=== PATIENT | female | born 2000 | race Caucasian/White ===

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

== ENCOUNTER → 2023-05-22 | Outpatient (CLI) | payer OTHER, MEDICAID, SELFPAY | END | disposition home or self-care (01) | PROVIDERS: PCP Family Medicine | DX: G47.33 Obstructive sleep apnea (adult) (pediatric) (principal) | CPT/HCPCS: 95811 ==

== ENCOUNTER 2023-07-07 10:11 | Emergency (ER) | payer OTHER, MEDICAID, SELFPAY ==
[2023-07-07 10:13] VITALS: BP 145/112; PULSE 105; RESP 18; TEMP 35.9; O2SAT 97; BMI 37.8
--- NOTE | 2023-07-07 10:34 | CT_ITS ---
STUDY: CT BRAIN WITHOUT CONTRAST REASON FOR EXAM: Female, 22 years old. [place] x 2 days, hx pseudotumor RADIATION DOSAGE (If Supplied By Facility): CTDIvol = ( 44.99 ) mGy, DLP = ( 762.36 ) mGycm TECHNIQUE: Transaxial CT imaging of the brain was performed without administration of intravenous contrast material. Individualized dose optimization techniques were used for this CT. COMPARISON: Head CT dated January 01, 2021 FINDINGS: Normal soft tissue structures. Normal calvarium. No hydrocephalus or extra-axial fluid collection is present. Normal size ventricles and extra-axial spaces for the patient''s age. Normal white matter tracts of the cerebral hemispheres. Normal basal ganglia and thalami. Normal brainstem. Normal cerebellum. There is no intracranial hemorrhage. There are no findings of an acute ischemic infarction. Normal visualized paranasal sinuses. CT/Brain/Head without Contrast IMPRESSION: Normal unenhanced CT scan of the brain. Electronically Signed: Scooter Conner MD at 11:27 EDT ,
--- NOTE | 2023-07-07 10:41 | EDS_ITS ---
HPI History of Present Illness Chief Complaint: Headache Informant: patient Onset/Context/Timing Onset: Yesterday Context: Gradual Timing: Continuous Quality -Headache: Positive for Sharp and Dull (Aching) Location: Left side of head Worsened by: Nothing Relieved by: Nothing Associated Symptoms/Injury Associated Symptoms: Positive for Nausea; Negative for Fever, Vomiting, Sore Throat, Sinus Pressure, Numbness, Tingling, Preceding Aura, Visual Changes, Blurred Vision, Photophobia or Visual Loss Injury - PISANO: Negative for Direct Trauma Narrative Narrative: Patient presents with a headache that began yesterday afternoon. Patient states it has been constant. Patient states it is mainly on the left side of her head. Patient describes it as a sharp pain and aching. Patient states nothing makes it better nothing makes it worse. Patient admits to some nausea but denies any vomiting. Patient denies any sore throat or sinus pressure. Patient denies any fevers or chills. Patient denies any paresthesias or weakness. Patient denies any photophobia or scotoma. Patient denies any preceding aura. Patient states she has a history of pseudotumor cerebri. Patient does not have a CROWNING INSPECTOR shunt. [facility] Medical History Pseudotumor cerebri Allergy/AdvReac Type Severity Reaction Status Date / Time No Known Allergies Allergy Verified 07/07/23 10:12 Surgical History Hx of section Social History Smoking Status: Never smoker substance use type: does not use ROS ROS ED Constitutional Constitutional ED: Denies chills or fever(s) Eyes Eyes: Denies blurry vision or change in vision ENT ENT ED: Denies rhinorrhea or sore throat Cardiovascular Cardiovascular: Denies chest pain or palpitations Respiratory/Chest Respiratory/Chest: Denies cough or dyspnea Gastrointestinal Gastrointestinal: Reports nausea; Denies vomiting Genitourinary Genitourinary ED: Denies dysuria or hematuria Musculoskeletal Musculoskeletal: Reports neck pain; Denies back pain Integumentary Denies abscess or rash Neurologic Neurologic: Reports headache(s); Denies weakness Allergic/Immunologic Allergic/Immunologic ED: Denies mouth swelling or urticaria EXAM Physical Exam Const Vital Signs: 07/07/23 10:13 Temperature 96.6 F L Temperature Source Temporal Pulse Rate 105 H Respiratory Rate 18 Blood Pressure 145/112 H Blood Pressure Mean 123 Pulse Ox 97 Oxygen Delivery Method Room Air Positive well nourished and well developed General Appearance ED: well developed and NAD HEENT Reports normocephalic and moist mucous membranes atraumatic and temporal artery tenderness left (Mild) Neck supple and no meningeal signs Resp normal respiratory effort and clear to auscultation bilaterally Cardio regular rate and regular rhythm GI non-tender and non-distended Palpation: soft Extremity normal to inspection and full ROM Neuro oriented x3, CN's II-XII intact bilaterally and no sensory deficits noted Oswald Coma Scale: document GCS findings Spontaneous Obeys Commands Oriented 15 Sensorium / Orientation: awake and alert Speech: speech normal Motor Exam: strength 5/5 throughout Psych mental status grossly normal MDM MDM MDM Narrative Medical decision making narrative: Differential diagnosis includes intracranial bleeding, pseudotumor cerebri, migraine headache, tension headache, and temporal arteritis. CT scan of the brain will be obtained to assess for intracranial bleeding. The CBC will be obtained to assess for leukocytosis and anemia. Basic metabolic profile will be obtained to assess for electrolyte abnormality and renal function. Urinalysis will be obtained to assess for urinary tract infection. Serum hCG will be obtained to assess for . Sed rate will be obtained to assess for temporal arteritis. Lab Data Attestation: I reviewed the patient's lab results. Lab results narrative: CBC was reviewed and was within normal limits. Basic metabolic profile was reviewed and was within normal limits. Sed rate was reviewed and was slightly elevated at 32. Serum hCG was reviewed and was negative. Urinalysis was reviewed. There is no evidence of urinary tract infection or hematuria. Labs: Laboratory Results - last 24 hr 07/07/23 07/07/23 10:30 10:50 WBC 10.0 RBC 4.36 Hgb 12.2 Hct 38.8 MCV 89.0 MCH 28.0 MCHC 31.4 L RDW Std Deviation 45.7 H RDW Coeff of Carlos A 14.0 Plt Count 456 H MPV 8.0 Immature Gran % (Auto) 0.700 Neut % (Auto) 60.4 Lymph % (Auto) 25.2 [place] % (Auto) 9.2 Eos % (Auto) 3.9 Baso % (Auto) 0.6 Absolute Neuts (auto) 6.1 Absolute Lymphs (auto) 2.53 Nucleated RBC % 0 ESR 32 H Sodium 137 Potassium 3.9 Chloride 105 Carbon Dioxide 27.0 Anion Gap 5 BUN 8 Creatinine 0.70 Estim Creat Clear Calc 158.30 Est GFR (MDRD) Af Amer 137 Est GFR (MDRD) Non-Af 113 BUN/Creatinine Ratio 11.5 Glucose 96 Calcium 9.5 Serum , Qual NEGATIVE Urine Color Yellow Urine Clarity Sl. Cloudy Urine pH 7.0 Ur Specific [place] 1.015 Urine Protein Negative Urine Glucose (UA) Normal Urine Ketones Negative Urine Occult Blood Negative Urine Nitrite Negative Urine Bilirubin Negative Urine Urobilinogen Normal Ur Leukocyte Esterase Negative Urine RBC 0 SEEN Urine WBC 0 SEEN Ur Squamous Epith Cells 5-10 SEEN Urine Bacteria 0 SEEN Urine Mucus 0 SEEN Radiography Diagnostic Testing: Clinical Impression(s) from Imaging Studies Brain CT 07/07/23 10:34 IMPRESSION: Normal unenhanced CT scan of the brain. Electronically Signed: Scooter Conner MD at 11:27 EDT Reading Location ID and State: [facility] / [place] , Service support , CT scan of the brain was obtained. There is no acute intracranial abnormality. This was interpreted by the radiologist and was also independently reviewed by myself. Treatment and Re-Evaluation Narrative: Patient was given IV fluids, Reglan, and Benadryl. Patient was feeling better on reevaluation. Patient felt like she wanted to go home. Patient was instructed to rest in a dark quiet room. Patient was instructed to follow-up with her primary care physician in 5 to 7 days. Patient understood and was agreeable with the plan. All questions were answered. Discharge Plan Triage Chief Complaint: Headache ED Provider: Paolo Kaiser Dx/Rx/DC Orders Clinical Impression: Headache Instructions: ED Headache Unspecified Primary Care Provider: Bryant Macario Referrals: Bryant Macario MD [Primary Care Provider] - 5-7 Days Print Language: Argentine Disposition Disposition: Home, Self Care
[2023-07-07] MEDS: 0.9% Normal Saline (1000mL) 1,000 ML 999 ML IV (10:54)
[2023-07-07] MEDS: Metoclopramide 10 MG/2 ML Vial IV (10:56)
[2023-07-07] MEDS: DiphenhydrAMINE 50 MG/ML Syringe 25 MG IV (10:56)
[2023-07-07 10:58] LABS: Bacteria 0 SEEN /hpf (None Seen); Mucous, Urine 0 SEEN /hpf (<or=2+); Red Blood Cells-Urine 0 SEEN /hpf (0-5); White Blood Cells 0 SEEN /hpf (0-5)
[2023-07-07 11:00] LABS: Color, Urine Yellow (Yellow); Glucose, Dipstick Normal (Normal); Ketone-Dipstick Negative (Negative); Leukocyte Esterase-Dipstick Negative /ul (Negative); Nitrite-Dipstick Negative (Negative); Occult Blood-Urine Negative /ul (Negative); Protein-Dipstick Negative (Negative); Specific Gravity, Urine 1.015 (1.002-1.030); Urine Bilirubin Dipstick Negative (Negative); Urine Clarity Sl. Cloudy (Clear); Urine Urobilinogen Normal (Normal)
[2023-07-07 11:12] LABS: Absolute Lymphocyte Count 2.53 X10^3/uL (0.83-4.51); Absolute Neutrophil Count 6.1 X10^3/uL (2.0-7.7); Basophil# 0.06 X10^3/uL; Basophil% 0.6 % (0-1); Eosinophil# 0.39 X10^3/uL; Eosinophils% 3.9 % (0-5); Erythrocyte Sedimentation Rate 32 mm/hr (0-30); Hematocrit 38.8 % (37-47); Hemoglobin 12.2 g/dL (12.0-15.0); Lymphocyte # 2.53 X10^3/ul (0.83-4.51); Lymphocyte % 25.2 % (19-41); Mean Corp Hgb Conc 31.4 g/dL (32-36); Monocyte# 0.92 X10^3/uL; Monocyte% 9.2 % (0-10); NRBC Flagged by Analyzer 0 % (0-5); Neutrophil # 6.05 X10^3/uL (2.7-7.7); Neutrophil % 60.4 % (47-70); Platelet Count 456 K/mm3 (150-450); RBC Distribution Width SD 45.7 fl (35.1-43.9); Red Blood Count 4.36 M/mm3 (4.2-5.4)
[2023-07-07 11:15] LABS: Squamous Epithelial Cells - UA 5-10 SEEN /hpf (5-10)
[2023-07-07 11:19] LABS: Internal QC Validated? YES +Cl - CLEAR BKGD; Pregnancy, Serum, hCG Quali. NEGATIVE Negative; Record Kit Lot#, Serum Preg. HCG0000718089
[2023-07-07 11:32] LABS: Anion Gap 5 (5-15); BUN 8 mg/dL (7-18); BUN/Creat Ratio 11.5 RATIO (10-20); Calcium,Total 9.5 mg/dL (8.5-10.1); Chloride 105 mmol/L (98-107); EST Glomerular Filtration Rate 113 mL/min (>60); Est Glom Filt Rate - Afr Amer 137 mL/min (>60); Glucose 96 mg/dL (74-106); Potassium 3.9 mmol/L (3.5-5.1); Sodium Level 137 mmol/L (136-145)
[2023-07-07 12:27] VITALS: BP 107/76; PULSE 76; RESP 19; TEMP 36.4; O2SAT 95
== END 2023-07-07 12:32 | disposition home or self-care (01) ==
PROVIDERS: Emergency Provider Emergency Medicine; PCP Family Medicine; Visit Provider Emergency Medicine
DX: R51.9 Headache, unspecified (principal); R11.0 Nausea
CPT/HCPCS: 70450; 80048; 81001; 84703; 85025; 85652; 99283; J7030; A4216

== ENCOUNTER 2024-08-11 12:07 | Emergency (ER) | payer BC, SELFPAY ==
[2024-08-11 12:07] VITALS: BP 164/71; PULSE 91; RESP 16; TEMP 36.7; O2SAT 99; BMI 42.6
[2024-08-11 14:07] VITALS: PULSE 63; RESP 18; O2SAT 97
[2024-08-11] MEDS: 0.9% Normal Saline (1000mL) 1,000 ML 1000 ML IV (14:16)
[2024-08-11] MEDS: Morphine 4 MG/ML Syringe IV (14:16)
[2024-08-11] MEDS: DiphenhydrAMINE 50 MG/ML Syringe 25 MG IV (14:16)
[2024-08-11] MEDS: Metoclopramide 10 MG/2 ML Vial IV (14:16)
--- NOTE | 2024-08-11 14:17 | EDS_ITS ---
HPI History of Present Illness Chief Complaint: Headache Narrative Narrative: Chief complaint and HPI: Headache. 24-year-old female with past medical history of migraines, chronic headache, pseudotumor cerebri presents for evaluation of headache. Patient states she follows with neurology for chronic headaches. States she recently just had an MRI of the brain as well as MRV that was unremarkable. She states she had this performed as she has had a constant headache for the past 2 years. Patient states yesterday evening she developed a headache that has progressively worsened. She took her Topamax and Excedrin with some relief. Patient states she talked to her PCP who sent her in for further evaluation as she states this feels different than her typical migraine. She states this is because the headache is more in the posterior of the brain versus frontal. She endorses photophobia and nausea. Denies any trauma, fever, chills, URI symptoms, neck pain, syncope, numbness, tingling, weakness, vomiting. Review of systems: See HPI Medications: As listed on the chart Allergies: As listed on the chart PFSH: Per chart Vital signs: As listed on the chart. Reviewed. Physical exam: Gen: A&O x3, NAD Head: Normocephalic, atraumatic Eyes: No sclera icterus, conjunctiva clear, PERRL, EOMI ENT: Moist mucous membranes, No facial asymmetry Neck: Trachea midline, No JVD CV: RRR, no murmurs, no peripheral edema Resp: Lungs CTA BL, no w/r/c GI: Abd soft, non-distended, non-tender, no r/r/g Musc: Full ROM, no deformity, strength +5/5 in all extremities, no ataxia Skin: Warm, dry, intact Neuro: Alert, oriented, grossly intact, sensation intact, no focal deficits Psych: Cooperative, appropriate mood and affect [facility] Medical History Pseudotumor cerebri Allergy/AdvReac Type Severity Reaction Status Date / Time No Known Allergies Allergy Verified 07/07/23 10:12 Surgical History Hx of section Social History Smoking Status: Never smoker substance use type: does not use EXAM Physical Exam Const Vital Signs: 08/11/24 12:07 08/11/24 14:07 Temperature 98.1 F Temperature Source Oral Pulse Rate 91 63 Respiratory Rate 16 18 Blood Pressure 164/71 H Blood Pressure Mean 102 Pulse Ox 99 97 Oxygen Delivery Method Room Air Room Air MDM MDM MDM Narrative Medical decision making narrative: 24-year-old female with past medical history of migraines, chronic headache, pseudotumor cerebri presents for evaluation of headache. Patient states she took her Topamax and Excedrin with some relief. States that it feels different than her typical migraines given that it is more posterior that frontal. Denies acute onset of headache reaching maximal intensity in under one hour. This is neither the worst headache that they have ever experienced, nor was the onset timed with exertional activity or trauma. Patient has not experienced any fever, unusual neck pain or stiffness, syncope. Denies numbness, tingling, or weakness of the extremities. Differential diagnosis includes but is not limited to migraine, tension headache, suspect less likely intracranial abnormality, SAH, pseudotumor cerebri. NS bolus, morphine, Reglan, Benadryl ordered for migraine cocktail. CT of the head ordered. CT of the head shows no acute intracranial abnormality. At this point in time, I suspect patient's symptoms are secondary to a migraine. On reevaluation, patient states her symptoms have improved. Patient is stable to discharge home. Recommend following up with PCP and neurologist. She was offered antinausea medicine for home but declined. Return precautions explained. Impression: 1. Migraine 2. History of migraines Radiography Diagnostic Testing: Clinical Impression(s) from Imaging Studies Brain CT 08/11/24 14:31 IMPRESSION: NORMAL NONCONTRAST HEAD CT. Reading Location: [id number] Discharge Plan Triage Chief Complaint: Headache ED Provider: Hakeem Negrete Dx/Rx/DC Orders Clinical Impression: Migraine Instructions: ED, Migraine (Classical) Primary Care Provider: Bryant Macario Referrals: Bryant Macario MD [Primary Care Provider] - Activity Restrictions/Additional Instructions: Follow-up with your primary care physician as well as your neurologist. Return back to the ED if symptoms change or worsen. Print Language: Ugandan Disposition Disposition: Home, Self Care
--- NOTE | 2024-08-11 14:31 | CT_ITS ---
PROCEDURE: BRAIN/HEAD WITHOUT CONTRAST 08/11/2024 REASON FOR EXAM: PISANO TECHNIQUE: BRAIN/HEAD WITHOUT CONTRAST Coronal and Sagittal reconstruction series were provided. One or more dose reduction techniques were used (e.g., Automated exposure control, adjustment of the mA and/or kV according to patient size, use of iterative reconstruction technique. RADIATION DOSE SUMMARY: CTDlvol: 44.99 mGy DLP: 779.24 mGycm COMPARISON: Prior study dated July 07, 2023. FINDINGS: Brain: Normal CSF Spaces: Normal Sinuses/Mastoids: Clear at visualized levels Bones: Unremarkable CT/Brain/Head without Contrast IMPRESSION: NORMAL NONCONTRAST HEAD CT. Reading Location: [facility]
[2024-08-11 15:08] VITALS: BP 119/67; PULSE 67; RESP 18; TEMP 36.4; O2SAT 98
== END 2024-08-11 15:14 | disposition home or self-care (01) ==
PROVIDERS: Emergency Provider Surgery; PCP Family Medicine; Visit Provider Surgery
DX: G43.909 Migraine, unspecified, not intractable, without status migrainosus (principal)
CPT/HCPCS: 70450; 96361; 96374; 96375; 99282; A4216

== ENCOUNTER → 2024-12-29 | Outpatient (CLI) | payer OTHER, SELFPAY ==
--- OUTSIDE RECORDS SUMMARY | 2024-12-29 07:09 | XMS RPT_ITS | CCD ---
Author Organization [facility] Care Team Providers Care Gluten Settling Tender Name Role Phone Bryant Grimm MD Primary Care Provider Unava Bryant Jarquin MD Primary Care Provider [place] PROFESSIONAL SKATER.Hetal SMART Unavailable Laar Jimenez PA-C Unavailable [place] PROFESSIONAL SKATER.CRITICAL CARE EDUCATORHetal Unavailable Tony [place] Lara Unavailable [place] PROFESSION[employer].BING Hetal Unavailable Tony [place] Lara Unavailable Dr. Bryant Grimm MD Primary Care Provider [phone] Dr. Hakeem Negrete DO Emergency Provider Bryant Grimm Primary Care Unavailable Hakeem Negrete Attending Unavailabl e Bryant Grimm Referring Unavailable Bryant Grimm Attending Unavailable Bryant Grimm Primary Care Unavailable BRYANT GRIMM Primary Care Unavailable LARA JIMENEZ Referring Unavailable BRYANT GRIMM Primary Care Unavailable BRYANT GRIMM Attending Unavailable BRYANT GRIMM Primary Care Unavailable LANKIRSTEN, SOTO Referring Unavailable BRYANT GRIMM A Primary Care Unavailable LANZO, SOTO Referring Unavailable BRYANT GRIMM Primary Care Unavailable BRYANT GRIMM Referring Unavailable BRYANT GRIMM Primary Care Unavailable SELF Referring Unavailable LIZA CAMARILLO Attending Unavailable BRYANT GRIMM Primary Care Unavailable LARA JIMENEZ Attending Unavailable BRYANT GRIMM Primary Care Unavailable LARA JIMENEZ Referring Unavailable BRYANT GRIMM Primary Care Unavailable LANZO, SOTO Referring Unavailable JOSE G TAYLOR Attending Unavailable ALFA, BRYANT A Primary Care Unavailable HAMANFRED, JOSE G Attending Unavailable ALFA, BRYANT A Primary Care Unavailable HAURY, JOSE G Referring Unavailable ALFA, BRYANT A Primary Care Unavailable RESHMA WINKLER Referring Unavailable LANZO, SOTO Attending Unavailable ALFA, BRYANT A Primary Care Unavailable LARA JIMENEZ Attending Unavailable ALFA, BRYANT A Primary Care Unavailable MASCI, LIZA A Referring Unavailable ALFA, BRYANT A Primary Care Unavailable LANZO, SOTO Referring Unavailable ALFA, BRYANT A Primary Care Unavailable MASCI, LIZA A Referring Unavailable ALFA, BRYANT A Primary Care Unavailable LANZO, SOTO Referring Unavailable LANZO, SOTO Attending Unavailable ALFA, BRYANT A Primary Care Unavailable LARA JIMENEZ Referring Unavailable ALFA, BRYANT A Primary Care Unavailable HAURY, JOSE G Referring Unavailable ALFA, BRYANT A Primary Care Unavailable SELF Referring Unavailable LANZO, SOTO Attending Unavailable ALFA, BRYANT A Primary Care Unavailable ALFA, BRYANT A Referring Unavailable ROSA M PARSONS Attending Unavailable ALFA, BRYANT A Primary Care Unavailable ALFA, BRYANT A Attending Unavailable ALFA, BRYANT A Primary Care Unavailable LANZO, SOTO Referring Unavailable MASCI, LIZA A Attending Unavailable ALFA, BRYANT A Primary Care Unavailable SELF Referring Unavailable Medications Current Medications Medication Drug Class(es) Dates Sig (Normalized) Sig (Original) 12 hr acetaZOLAMIDE 500 mg extended release oral capsule (20 sources) Carbonic Anhydrase Inhibitor Start: 12-02-2022 End: 03-02-2023 take 1 capsule by mouth twice daily acetaZOLAMIDE SR (DIAMOX SEQUELS) 500 mg capsule Take 1 capsule by mouth two times a day. 60 capsule 2 12/02/2022 03/02/2023 Active Start: 05-07-2021 take 1 dose by mouth twice daily 500 mg, Oral, EVERY 12 HOURS SCHEDULED (2 times per day), First dose on Fri05/07/21 at 2100 Start: 05-03-2021 acetaZOLAMIDE (DIAMOX) extended release capsule 500 mg Start: 05-02-2021 End: 05-03-2021 take 500 mg by mouth twice daily 500 mg, Oral, 2 TIMES DAILY, First dose on Fri05/02/21 at 2100 Start: 01-05-2021 acetaZOLAMIDE (DIAMOX) extended release capsule 500 mg Start: 01-05-2021 End: 09-13-2021 take 1 capsule by mouth every twelve hours acetaZOLAMIDE (DIAMOX) 500 MG extended release capsule Take 1 capsule by mouth every 12 hours 60 capsule 3 05/09/2021 Active Start: 01-04-2021 End: 01-05-2021 acetaZOLAMIDE (DIAMOX) table t 500 mg Comment on above: Take 500 mg by mouth . Take 1 capsule by mo uth two times a day. amoxicillin 875 mg / clavulanate 125 mg oral tablet (2 sources) Penicillin-class Antibacterial Start: 05-27-2022 End: 06-03-2022 take 1 tablet by mouth once amoxicillin-cla vulanic acid (AUGMENTIN) 875-125 mg per tablet Take 1 tablet by mouth. 0 05/27/2022 06/03/2022 Active Start: 05-08-2021 amoxicillin-cl avulanate (AUGMENTIN) 875-125 MG per tablet 1 tablet Comment on above: Take 1 tablet by tressa th. aspirin/acetaminophen/caffei n e (EXCEDRIN MIGRAINE ORAL) (20 sources) aspirin/acetamin ophen/caffei ne (EXCEDRIN MIGRAINE ORAL) Take by mouth as needed. Drug free headache Care Active aspirin/acetamin ophen/caffeine (EXCEDRIN MIGRAINE ORAL) Drug free headache Care Active End: 03-22-2024 take 1 tablet by mouth once daily aspirin/acetaminophen/caffeine (EXCEDRIN MIGRAINE ORAL) Take 1 tablet by mouth once daily. Drug free head care 03/22/2024 Discontinued take 1 tablet by tressa th once daily aspirin/acetaminophen/caffeine (EXCEDRIN MIGRAINE ORAL) Take 1 tablet by mouth once daily. Drug free head care Active take 1 tablet by tressa th once daily aspirin/acetaminophen/caffeine (EXCEDRIN MIGRAINE ORAL) Take 1 tablet by mouth once daily. Drug free head care 0 Active atorvastatin 20 mg oral tablet (15 sources) HMG-CoA Reductase Inhibitor Start: 08-07-2024 take 1 tablet by mouth once daily atorvastatin (LIPITOR) 20 mg tablet Indications: WHITNEY (nonalcoholic steatohepatitis) Take 1 tablet by mouth once daily. 90 tablet 1 08/07/2024 Active 24 hr buPROPion hydrochloride 300 mg extended release oral tablet (20 sources) Aminoketone Start: 04-08-2025 take 1 tablet by mouth every hour buPROPion XL (WELLBUTRIN XL) 300 mg 24 hr tablet Take 1 tablet by mouth once daily. Per Psych, Tranquility 90 tablet 1 05/25/2024 Active Start: 08-14-2022 End: 05-25-2024 take 1 tablet by mouth once daily buPROPion XL (WELLBUTRIN XL) 300 mg 24 hr tablet Take 1 tablet by mouth once daily. 90 tablet 1 11/07/2023 05/25/2024 Discontinued (Adjust Sig - Block E-Cancel) Start: 07-17-2022 take 1 tablet by tressa th once daily buPROPion XL (WELLBUTRIN XL) 300 mg 24 hr tablet Take 1 tablet by mouth once daily. 30 tablet 5 07/17/2022 Active Start: 05-30-2022 End: 07-17-2022 take 1 tablet by mouth once daily buPROPion XL (WELLBUTRIN XL) 150 mg 24 hr tablet Take 1 tablet by mouth once daily. 30 tablet 5 05/30/2022 07/17/2022 Discontinued Comment on above: Take 1 tablet by tressa th once daily. TAKE 1 TABLET BY TRESSA TH EVERY DAY cetirizine hydrochloride 10 mg oral tablet (20 sources) Histamine-1 Receptor Antagonist Start: take 1 tablet by mouth once daily cetirizine (ZYRTEC) 10 mg tablet Take 1 tablet by mouth once daily. 30 tablet 08/16/2020 Active Comment on above: Take 1 tablet by tressa th once daily. CPAP/BIPAP/OTHER (20 sources) Start: End: CPAP/BIPAP/OTHER autoCPAP 8-10 cmH2O [facility] 1 Each 06/02/2023 10/17/2050 Active Start: 06-02-2023 End: 10-17-2050 CPAP/BIPAP/OTHER autoCPAP 8- 10 cmH2O [facility] 1 Each 0 06/02/2023 10/17/2050 Active Start: 02-24-2023 End: 06-02-2023 CPAP/BIPAP/OTHER autoCPAP 5- 15 cmH2O [facility] 1 Each 0 02/24/2023 06/02/2023 Discontinued Start: 02-24-2023 End: 07-11-2050 CPAP/BIPAP/OTHER autoCPAP 5- 15 cmH2O [facility] 1 Each 0 02/24/2023 07/11/2050 Active Comment on above: autoCPAP 5-15 cmH2O [facility] autoCPAP 8-10 cmH2O [facility] Cranberry preparation (14 sources) Non-Standardized Food Allergenic Extract, Non-Standardized Plant Allergenic Extract Start: 09-11-2024 End: 10-24-2024 Cranberry 500 mg cap 09/11/2024 10/24/2024 Discontinued End: 05-07-2024 CRANBERRY ORAL Take by mouth once daily. 05/07/2024 Discontinued CRANBERRY ORAL T jaclyn by mouth once daily. Active 1 ml diphenhydrAMINE hydrochloride 50 mg/ml cartridge (3 sources) Histamine-1 Receptor Antagonist Start: 05-02-2021 25 mg, IntraVENous, EVERY 6 HOURS PRN, Itching, Hives, Starting on Fri05/02/21 at 1540, Start: 01-04-2021 End: 01-04-2021 diphenhydrAMINE (BENADRYL) i njection 25 mg Start: 01-03-2021 diphenhydrAMIN E (BENADRYL) tablet 25 mg docusate sodium 100 mg oral capsule (6 sources) Start: 05-07-2021 take 100 mg by mouth twice daily as needed for constipation 100 mg, Oral, 2 TIMES DAILY PRN, Constipation, Starting on Fri05/07/21 at 1239 Do not crush or break. Start: 05-02-2021 End: 05-05-2021 take 1 capsule by mouth twice daily as needed for constipation docusate sodium (COLACE) 100 MG capsule Take 1 capsule by mouth 2 times daily as needed for Constipation 60 capsule 1 05/04/2021 Active Start: 01-01-2021 take 100 mg by mouth twice daily as needed for constipation 100 mg, Oral, 2 TIMES DAILY PRN, Constipation, Starting on Fri01/01/21 at 2359 Do not crush or break. 0.4 ml enoxaparin sodium 100 mg/ml prefilled syringe (2 sources) Low Molecular Weight Heparin Start: 05-07-2021 inject 40 mg by subcutaneous injection once daily 40 mg, SubCUTAneous, DAILY, First dose on Fri05/07/21 at 1945, Start: 05-03-2021 inject 60 mg by subc utaneous injection once daily 60 mg, SubCUTAneous, DAILY, First dose on Isabelle 05/03/21 at 0115, ferrous sulfate 325 mg oral tablet (4 sources) Start: 05-02-2021 take 325 mg by mouth twice daily at mealtime 325 mg, Oral, 2 TIMES DAILY WITH MEALS, First dose on 05/07/21 at 1700 Start if Hgb less than 10. flaxseed oil (OMEGA 3 ORAL) (20 sources) take 2 capsules by mouth once daily flaxseed oil (OMEGA 3 ORAL) Take 2 capsules by mouth once daily. Active flaxseed oil (OM EGA 3 ORAL) Take by mouth as directed. Active flaxseed oil (OM EGA 3 ORAL) Take by mouth as directed. 0 Active FLUoxetine 40 mg oral capsule (20 sources) Serotonin Reuptake Inhibitor Start: 08-11-2024 take 1 capsule by mouth once daily Fluoxetine 10 mg capsule Active 10 mg PO DAILY August 11, 2024 12:00am Start: 08-11-2024 take 1 capsule by [facility] once daily Fluoxetine 20 mg capsule Active 20 mg PO DAILY August 11, 2024 12:00am Start: 08-11-2024 take 1 capsule by [facility] once daily Fluoxetine 40 mg capsule Active 40 mg PO DAILY August 11, 2024 12:00am Start: 06-07-2024 take 2 capsules by [facility] once daily PROZAC 20 mg capsule Take 40 mg by mouth once daily. 06/07/2024 Active Start: 06-07-2024 take 1 capsule by [facility] once daily PROZAC 20 mg capsule Take 20 mg by mouth once daily. 06/07/2024 Active 24 hr guanFACINE 1 mg extended release oral tablet (15 sources) Central alpha-2 Adrenergic Agonist Start: 08-11-2024 take 1 tablet by mouth once daily Guanfacine 1 mg tablet extended release 24 hr Active 1 mg PO DAILY August 11, 2024 12:00am take [address] [facility] once daily at bedtime guanfacine HCl (INTUNIV ER ORAL) Take 1 tablet by mouth daily at bedtime. Active HYDROmorphone (DILAUDID) injection 0.25 mg (1 source) Start: 03-16-2022 HYDROmorphone (DILAUDID) injection 0.25 mg hydrOXYzine hydrochloride 25 mg oral tablet (20 sources) Antihistamine Start: 05-26-2024 take 1 tablet by mouth every eight hours as needed hydrOXYzine HCl (ATARAX) 25 mg tablet Take 25 mg by mouth three times a day as needed. 05/26/2024 Active ibuprofen 600 mg oral tablet (20 sources) Nonsteroidal Anti-inflammatory Drug Start: 05-03-2021 ibuprofen (ADVIL;MOTRIN) tablet 600 mg Start: 05-17-2013 Ibuprofen 200 mg cap Take by mouth every 4 hours as needed. FOR PAIN. 0 05/17/2013 Active Comment on above: Take by mouth every 4 hours as needed. FOR PAIN. iv contrast (will be provided with radiology test) (2 sources) Start: 05-05-2024 End: 05-06-2024 iv contrast (will be provided with radiology test) MRV Brain Inject, intravenously, once for 1 dose. No IV access, insert saline lock prior to the beginning of sedation, infusion, injection of imaging exam. Discontinue saline lock post exam. If Pt. has a central line or IVAD, may access for administration according to line specific nursing protocol. Once exam is complete flush line and de-access according to line specific nursing protocol in the MR contrast administration guidelines link. 1 Each 05/05/2024 05/06/2024 Active Start: 05-05-2024 End: 05-06-2024 inject 1 dose intravenously once iv contrast (will be provided with radiology test) MRI Brain Inject, intravenously, once for 1 dose.No IV access, insert saline lock prior to beginning of sedation, infusion, injection of imaging exam.Discontinue saline lock post exam. If Pt. has a central line or IVAD, may access for administration according to line specific nursing protocol.Once exam is complete flush line and de-access according to line specific nursing protocol in the MR contrast administration guidelines link 1 Each 05/05/2024 05/06/2024 Active peg Cadena jensen,rhleonel mn (AZO VAGINAL HEALTH PROBIOTIC ORAL) (20 sources) End: 10-24-2024 take 1 capsule by mouth once daily peg Cadena jensen,rhamn (AZO VAGINAL HEALTH PROBIOTIC ORAL) Take 1 capsule by mouth once daily. 10/24/2024 Discontinued take 1 capsule by mo [facility] once daily L.crispat,gasseri,blanco,rhamn (AZO VAGI NAL HEALTH PROBIOTIC ORAL) Take 1 capsule by mouth once daily. Active L.crispat,boby i,blanco,rhamn (AZO VAGINAL HEALTH PROBIOTIC ORAL) Active Lacto no.76/Bifido/FOS/larch (WOMEN'S PROBIOTIC ORAL) (20 sources) take 1 capsule by mouth once daily Lacto no.76/Bifido/FOS/larch (WOMEN'S PROBIOTIC ORAL) Take 1 capsule by mouth once daily. Active Lacto no.76/Bifi do/FOS/larch (WOMEN'S PROBIOTIC ORAL) Active lanolin 1000 mg/ml topical cream (2 sources) Start: 05-07-2021 Topical, EVERY 1 HOUR PRN, Dry Skin, nipple discomfort, Starting on Fri05/07/21 at 1239, Start: 05-02-2021 Topical, EVERY 1 HOUR PRN, Dry Skin, nipple discomfort, Starting on Fri05/02/21 at 1540, lidocaine hydrochloride 0.02 mg/mg topical gel (2 sources) Antiarrhythmic, Amide Local Anesthetic Start: 01-05-2021 lidocaine (XYLOCAINE) 2 % jelly Start: 01-05-2021 lidocaine 4 % external patch 1 patch methylPREDNISolone (2 sources) Corticosteroid Start: 05-05-2024 End: 05-11-2024 methylPREDNISolone (MEDROL, YUE,) 4 mg Dose-Pack Follow instructions on package 21 tablet 05/05/2024 05/11/2024 Active mv-min/iron/folic/calci um/vitK (WOMEN'S MULTIVITAMIN ORAL) (20 sources) take 1 tablet by mouth once daily mv-min/iron/folic/calc ium/vitK (WOMEN'S MULTIVITAMIN ORAL) Take 1 tablet by mouth once daily. Active mv-min/iron/foli c/calcium/vitK (WOMEN'S MULTIVITAMIN ORAL) Active 2 ml ondansetron 2 mg/ml injection (4 sources) Serotonin-3 Receptor Antagonist Start: 05-07-2021 End: 05-07-2021 4 mg, IntraVENous, EVERY 6 HOURS PRN, Nausea, Starting on Fri05/07/21 at 1239, Start: 05-02-2021 4 mg, IntraVEN ous, EVERY 6 HOURS PRN, Nausea, Starting on Fri05/02/21 at 1540, Start: 05-02-2021 End: 05-02-2021 ondansetron (ZOFRAN-ODT) dis integrating tablet 4 mg ondansetron (ZOFRAN-ODT) disintegrating tablet 4 mg (1 source) Start: 01-01-2021 ondansetron (ZOFRAN-ODT) disintegrating tablet 4 mg phentermine hydrochloride 37.5 mg oral tablet (3 sources) Sympathomimetic Amine Anorectic Start: 08-25-2024 Phentermine HCl (ADIPEX-P) 37.5 mg tablet 08/25/2024 Active polyethylene glycol 3350 [id number] mg powder for oral solution (1 source) Osmotic Laxative Start: 01-04-2021 polyethylene glycol (GLYCOLAX) packet 17 g Vit-Fe Fumarate-FA ( VITAMIN) 27-1 MG TABS tablet (2 sources) Start: 05-04-2021 take 1 tablet by mouth once daily Vit-Fe Fumarate-FA ( VITAMIN) 27-1 MG TABS tablet Take 1 tablet by mouth daily 30 tablet 3 05/04/2021 Active vitamin 27-1 MG tablet 1 tablet (3 sources) Start: 05-07-2021 take 1 tablet by mouth once daily 1 tablet, Oral, DAILY, First dose on Fri05/07/21 at 1800 Begin when normal bowel activity resumes. Start: 05-02-2021 take 1 tablet by tressa th once daily 1 tablet, Oral, DAILY, First dose on Fri05/02/21 at 1600 Begin when normal bowel activity resumes. Start: 01-02-2021 take 1 tablet by tressa th once daily 1 tablet, Oral, DAILY, First dose on Fri01/02/21 at 0900 propranolol hydrochloride 10 mg oral tablet (20 sources) beta-Adrenergic Liv Start: 11-21-2023 propranolol (INDERAL) 10 mg tablet Take 10 mg by mouth. As needed 11/21/2023 Active simethicone 80 mg chewable tablet (2 sources) Start: 05-07-2021 take 80 mg by mouth every six hours as needed 80 mg, Oral, EVERY 6 HOURS PRN, Cramping, Flatulence, Starting on Fri05/07/21 at 1239, Start: 05-02-2021 take 80 mg by mouth every six hours as needed 80 mg, Oral, EVERY 6 HOURS PRN, Cramping, Flatulence, Starting on Fri05/02/21 at 1540, 5 ml sodium chloride 9 mg/ml injection (13 sources) Start: 05-07-2021 10 mL, IntraVE Nous, EVERY 12 HOURS SCHEDULED (2 times per day), First dose on Fri05/07/21 at 2100, Start: 05-07-2021 take 25 mL intraveno usly every hour as needed 25 mL, IntraVENous, at 100 mL/hr, PRN, If patient receiving piggyback infusions without ordered maintenance IV fluids or with frequent/long duration piggyback infusions, Starting on Fri05/07/21 at 1239 Administer at the same rate as the piggyback being infused. Start: 05-07-2021 take 10 mL intravenously once 10 mL, IntraVENous, PRN, Line Care, Starting on Fri05/07/21 at 1239 After every IV line use Start: 05-07-2021 0.9 % sodium c hloride infusion Start: 05-07-2021 sodium chlorid e flush 0.9 % injection 5-40 mL Start: 05-07-2021 End: 05-07-2021 0.9 % sodium chloride bolus Start: 05-02-2021 10 mL, IntraVE Nous, EVERY 12 HOURS SCHEDULED (2 times per day), First dose on Fri05/02/21 at 2100, Start: 05-02-2021 take 10 mL intravenously once 10 mL, IntraVENous, PRN, Line Care, Starting on Fri05/02/21 at 1540 After every IV line use Start: 05-02-2021 take 25 mL intraveno usly every hour as needed 25 mL, IntraVENous, at 100 mL/hr, PRN, If patient receiving piggyback infusions without ordered maintenance IV fluids or with frequent/long duration piggyback infusions, Starting on Fri05/02/21 at 1540 Administer at the same rate as the piggyback being infused. Start: 01-02-2021 10 mL, IntraVE Nous, EVERY 12 HOURS SCHEDULED (2 times per day), First dose on Fri01/02/21 at 0900 Start: 01-01-2021 take 25 mL intraveno usly every hour as needed 25 mL, IntraVENous, at 100 mL/hr, PRN, If patient receiving piggyback infusions without ordered maintenance IV fluids or with frequent/long duration piggyback infusions, Starting on Fri01/01/21 at 2359 Administer at the same rate as the piggyback being infused. Start: 01-01-2021 take 10 mL intraveno usly once as needed 10 mL, IntraVENous, PRN, Line Care, After every IV line use, Starting on Fri01/01/21 at 2359 topiramate 100 mg oral tablet (20 sources) Start: 06-21-2024 End: 09-24-2024 take 1 tablet by mouth once daily at bedtime topiramate (TOPAMAX) 100 mg tablet Take 1 tablet by mouth daily at bedtime. 30 tablet 2 09/24/2024 Active Start: 05-25-2024 End: 06-21-2024 take 1 tablet by mouth once daily at bedtime topiramate (TOPAMAX) 50 mg tablet Take 1 tablet by mouth daily at bedtime. 05/25/2024 06/21/2024 Discontinued (Course of therapy completed) Start: 05-05-2024 End: 05-25-2024 take 1 tablet by mouth once daily at bedtime topiramate (TOPAMAX) 25 mg tablet Take 1 tablet by mouth daily at bedtime. 84 tablet 05/05/2024 05/25/2024 Discontinued (Adjust Sig - Block E-Cancel) Start: 02-18-2023 End: 06-02-2023 topiramate (TOPAMAX) 25 mg t ablet 25 mg (1 tab) at bed x 2 wks, then 50 mg at bed (2 tabs) x 2 wks, then 75 mg at bed (3 tabs) x 2 wks 84 tablet 0 02/18/2023 06/02/2023 Discontinued Start: 02-18-2023 End: 06-02-2023 take 1 tablet by mouth once daily at bedtime topiramate (TOPAMAX) 100 mg tablet Take 1 tablet by mouth daily at bedtime. 30 tablet 2 02/18/2023 06/02/2023 Discontinued Start: 10-17-2022 End: 12-02-2022 take 1 tablet by mouth once daily at bedtime, then take 1 tablet by mouth twice daily topiramate (TOPAMAX) 25 mg tablet Take 1 tablet by mouth daily at bedtime for 7 days, THEN 1 tablet twice daily. 60 tablet 1 10/17/2022 12/02/2022 Discontinued Comment on above: Take 1 tablet by tressa th daily at bedtime for 7 days, THEN 1 tablet twice daily. 25 mg (1 tab) at bed x 2 wks, then 50 mg at bed (2 tabs) x 2 wks, then 75 mg at bed (3 tabs) x 2 wks Take 1 tablet by tressa th daily at bedtime. Completed/Discontinued Medications Medication Drug Class(es) Dates Sig (Normalized) Sig (Original) acetaminophen 500 mg oral tablet (20 sources) Start: 05-07-2021 End: 05-07-2021 acetaminophen (TYLENOL) tablet 1,000 mg Start: 05-02-2021 take 650 mg by mouth every six hours as needed for pain, then take 4000 mg by mouth every twenty-four hours as needed for pain 650 mg, Oral, EVERY 6 HOURS PRN, Pain Mild (1-3), Starting on Fri05/02/21 at 1540 Maximum dose of acetaminophen is 4000 mg from all sources in 24 hours. Start: 01-01-2021 acetaminophen (TYLENOL) tablet 650 mg acetaminophen 32 5 mg cap Take by mouth as needed. Active Comment on above: Take by mouth. BENEFIBER, WHEAT DEXTRIN, ORAL (15 sources) End: 02-10-2024 BENEFIBER, WHEAT DEXTRIN, ORAL Take by mouth. 02/10/2024 Discontinued (Other) BENEFIBER, WHEAT DEXTRIN, ORAL Take by mouth. Active BENEFIBER, WHEAT DEXTRIN, ORAL Take by mouth. 0 Active calcium chloride 0.0014 meq/ ml / potassium chloride 0.004 meq/ml / sodium chloride 0.103 meq/ml / sodium lactate 0.028 meq/ml injectable solution (4 sources) Start: 05-07-2021 End: 05-08-2021 lactated ringers bolus Start: 05-02-2021 End: 05-02-2021 lactated ringers bolus Start: 01-02-2021 End: 01-02-2021 IntraVENous, at 125 mL/hr, C ONTINUOUS, Starting on Fri01/02/21 at 0045 ceFAZolin 2000 mg injection (1 source) Cephalosporin Antibacterial Start: 05-02-2021 End: 05-02-2021 2,000 mg, IntraVENous, ONCE, 1 dose, On Fri05/02/21 at 1230, Labor and Delivery (Signed and Held) cholecalciferol 0.05 mg oral capsule (20 sources) Vitamin D Start: 06-25-2024 End: 2024 take 2 capsules by mouth every week Cholecalciferol, Vitamin D3, (VITAMIN D-3) 50 mcg (2,000 unit) cap Take 2 capsules by mouth one time a week. On a different day then the 50,000 international unit(s) capsule 06/25/2024 2024 Discontinued Start: 05-25-2024 take 1 capsule by [facility] every week cholecalciferol, Vitamin D3, (VITAMIN D3) 1,250 mcg (50,000 unit) cap capsule Take 1 capsule by mouth one time a week. 12 capsule 3 05/25/2024 Active take [address] [facility] once daily cholecalciferol (VITAMIN D-3) 50 mcg (2,000 unit) tablet Take 2,000 Units by mouth once daily. Active citric acid 66.8 mg/ml / sodium citrate 100 mg/ml oral solution (1 source) Calculi Dissolution Agent, Anti-coagulant Start: 05-02-2021 End: 05-02-2021 take 30 mL by mouth once 30 mL, Oral, ONCE, On Fri05/02/21 at 1145, For 1 dose Give prior to epidural placement. Labor and Delivery 50 ml clindamycin 18 mg/ml injection (1 source) Lincosamide Antibacterial Start: 05-07-2021 End: 05-08-2021 900 mg, IntraVENous, EVERY 8 HOURS, First dose on Fri05/07/21 at 1245, Until Discontinued container,empty (PILL PAL MISC) (11 sources) End: 11-07-2023 container,empty (PILL PAL MISC) 2 tablets once daily. Nomi lovin libido 11/07/2023 Discontinued container,empty (PILL PAL MISC) 2 tablets once daily. Nomi lovin libido Active container,empty (PILL PAL MISC) 2 tablets once daily. Nomi lovin libido 0 Active Digestive Enzymes cap (1 source) End: 05-07-2024 Digestive Enzymes cap 05/07/2024 Discontinued escitalopram 10 mg oral tablet (4 sources) Serotonin Reuptake Inhibitor Start: 07-04-2021 End: 09-13-2021 take 1 tablet by mouth once daily escitalopram oxalate (LEXAPRO) 10 mg tablet TAKE 1 TABLET BY MOUTH EVERY DAY 90 tablet 0 08/24/2021 09/13/2021 Discontinued (Side Effects) Comment on above: Take 1 tablet by tressa th once daily. TAKE 1 TABLET BY TRESSA TH EVERY DAY gentamicin (GARAMYCIN) 420 mg in dextrose 5 % 250 mL IVPB (1 source) Start: 05-07-2021 End: 05-08-2021 420 mg, IntraVENous, EVERY 24 HOURS, First dose on Fri05/07/21 at 1245, Until Discontinued 1 ml ketorolac tromethamine 30 mg/ml cartridge (2 sources) Nonsteroidal Anti-inflammatory Drug, Cyclooxygenase Inhibitor Start: 05-02-2021 End: 05-03-2021 30 mg, IntraVENous, EVERY 6 HOURS, First dose on Fri05/02/21 at 1600, For 4 doses Do not administer for more than 5 days. Start: 05-02-2021 End: 05-02-2021 60 mg, IntraMUSCular, ONCE, On Fri05/02/21 at 1330, For 1 dose Do not administer for more than 5 days. Post Delivery 1 ml LORazepam 2 mg/ml injection (1 source) Benzodiazepine Start: 01-02-2021 End: 01-02-2021 LORazepam (ATIVAN) injection 0.5 mg magnesium oxide 400 mg oral tablet (1 source) End: 05-04-2021 take 1 tablet by mouth once daily magnesium oxide (MAG-OX) 400 MG tablet Take 400 mg by mouth daily 0 05/04/2021 Discontinued (Stop Taking at Discharge) 500 ml magnesium sulfate 40 mg/ml injection (1 source) Start: 01-02-2021 End: 01-02-2021 take 50 mL intravenously every hour 2,000 mg/hr (50 mL/hr), IntraVENous, CONTINUOUS, Starting on Fri01/02/21 at 0045, For 18 hours 1000 mg = 1 gram; 2000 mg = 2 grams; 20,000 mg = 20 grams medical supply, miscellaneous (MISCELLANEOUS MEDICAL SUPPLY MISC) (15 sources) End: 02-10-2024 medical supply, miscellaneous (MISCELLANEOUS MEDICAL SUPPLY MISC) 2 tablets once daily. Obvi collagenic burn 02/10/2024 Discontinued (Other) medical supply, miscellaneous (MISCELLANEOUS MEDICAL SUPPLY MISC) 2 tablets once daily. Obvi collagenic burn Active medical supply, miscellaneous (MISCELLANEOUS MEDICAL SUPPLY MISC) 2 tablets once daily. Obvi collagenic burn 0 Active metoclopramide 10 mg oral tablet (5 sources) Dopamine-2 Receptor Antagonist Start: 01-05-2021 End: 05-04-2021 take 1 tablet by mouth three times daily at mealtime metoclopramide (REGLAN) 10 MG tablet Take 1 tablet by mouth 3 times daily (with meals) 30 tablet 1 01/05/2021 05/04/2021 Discontinued (Stop Taking at Discharge) Start: 01-03-2021 metoclopramide (REGLAN) injection 10 mg Miscellaneous Medical Supply (10 sources) End: 11-07-2023 Miscellaneous Medical Supply 1 Each once daily. Nomi compact craving vitamin 11/07/2023 Discontinued Miscellaneous Me dical Supply 1 Each once daily. Nomi compact craving vitamin Active Miscellaneous Me dical Supply 1 Each once daily. Nomi compact craving vitamin 0 Active naproxen 500 mg oral tablet (7 sources) Nonsteroidal Anti-inflammatory Drug Start: 08-08-2023 End: 11-07-2023 take 1 tablet by mouth every twelve hours as needed naproxen (NAPROSYN) 500 mg tablet Take 1 tablet by mouth two times a day as needed (for pain/inflammation). Take with food. 14 tablet 1 08/08/2023 11/07/2023 Discontinued norethindrone 0.35 mg oral tablet (7 sources) Start: 06-21-2021 End: 05-02-2022 take 1 tablet by mouth once daily Norethindrone, Contraceptive, 0.35 mg tablet Take 1 tablet by mouth once daily. 0 06/21/2021 05/02/2022 Discontinued Comment on above: Take 1 tablet by tressa th once daily. oxyCODONE hydrochloride 5 mg oral tablet (3 sources) Opioid Agonist Start: 05-04-2021 End: 05-09-2021 take 1 tablet by mouth every six hours as needed for pain oxyCODONE (ROXICODONE) 5 MG immediate release tablet Indications: S/P Take 1 tablet by mouth every 6 hours as needed for Pain for up to 5 days. 20 tablet 0 05/04/2021 05/07/2021 Discontinued (LIST CLEANUP) Start: 05-02-2021 oxyCODONE (JARRED ICODONE) immediate release tablet 5 mg piperacillin 4000 mg / tazobactam 500 mg injection (1 source) Penicillin-class Antibacterial, beta Lactamase Inhibitor Start: 05-07-2021 End: 05-07-2021 piperacillin-tazobactam (ZOSYN) 4500 mg in dextrose 100 mL IVPB (premix) polyethylene glycol 3350 009255 mg / potassium chloride 2970 mg / sodium bicarbonate 6740 mg / sodium chloride 5860 mg / sodium sulfate 22186 mg powder for oral solution (1 source) Osmotic Laxative Start: 08-07-2024 End: 08-07-2024 peg 3350-Electrolytes (GOLYTELY) 236-22.74-6.74 -5.86 gram suspension Indications: Altered bowel habits , Chronic constipation Take 4,000 mL by mouth one time only for 1 dose. Refer to printed prep instructions from your provider. 4000 mL 08/07/2024 08/07/2024 predniSONE 10 mg oral tablet (6 sources) Start: 08-15-2023 End: 11-07-2023 predniSONE (DELTASONE) 10 mg tablet Take 6 tabs by mouth for 3 days then 4 tabs a day for 3 days then 2 tabs a day for 3 days and then 1 tab a day for 3 days. 39 tablet 08/15/2023 11/07/2023 Discontinued vit/iron fum/folic ac ( 1 + 1 ORAL) (5 sources) End: 09-13-2021 vit/iron fum/folic ac ( 1 + 1 ORAL) Take by mouth. 0 09/13/2021 Discontinued vit/iro n fum/folic ac ( 1 + 1 ORAL) Take by mouth. 0 Active Comment on above: Take by mouth. vancomycin (VANCOCIN) 2,250 mg in dextrose 5 % 500 mL IVPB (1 source) Start: 05-08-19 End: 05-08-19 vancomycin (VANCOCIN) 2,250 mg in dextrose 5 % 500 mL IVPB 24 hr venlafaxine 75 mg extended release oral capsule (20 sources) Serotonin and Norepinephrine Reuptake Inhibitor Start: 11-07-19 End: 06-25-19 take 1 capsule by mouth once daily venlafaxine ER (EFFEXOR XR) 75 mg 24 hr capsule Take 1 capsule by mouth once daily. Take with the 150mg capsule for total daily dose of 225mg. Per Psych, Tranquility 30 capsule 2 05/25/2024 06/24/2024 Discontinued Start: 05-02-2022 End: 06-24-2024 take 1 capsule by mouth once daily venlafaxine ER (EFFEXOR XR) 150 mg 24 hr capsule Take 1 capsule by mouth once daily. Take with the 75mg capsule for total daily dose of 225mg. Per Psych, Tranquility 90 capsule 1 05/25/2024 06/24/2024 Discontinued Start: 09-13-2021 End: 05-02-2022 take 1 capsule by mouth once daily venlafaxine ER (EFFEXOR XR) 75 mg 24 hr capsule TAKE 1 CAPSULE BY MOUTH ONCE DAILY 90 capsule 2 10/05/2021 05/02/2022 Discontinued Comment on above: Take 1 capsule by mo uth once daily. TAKE 1 CAPSULE BY MO UTH ONCE DAILY vitamin b6 100 mg oral tablet (4 sources) End: 07-04-2021 take 1 tablet by mouth once daily pyridoxine, vitamin B6, (VITAMIN B-6) 100 mg tablet Take 100 mg by mouth once daily. 0 07/04/2021 Discontinued Comment on above: Take 100 mg by mouth once daily. Problems Active Problems Problem Classification Problem Date Documented Da te Episodic/Chronic Allergic reactions (1 source) Urticaria; Translations: [Urticaria, unspecified] Episodic Anxiety disorders (20 sources) Generalized anxiety disorder; Translations: [Generalized anxiety disorder] Onset: 05-02-2022 Chronic Attention-deficit, conduct, and disruptive behavior disorders (20 sources) Oppositional defiant disorder; Translations: [Oppositional defiant disorder] Onset: 11-07-2007 12-14-2014 Chronic Attention-deficit, conduct, and disruptive behavior disorders (20 sources) Attention deficit hyperactivity disorder, combined type; Translations: [Attention-deficit hyperactivity disorder, combined type] Onset: 12-14-2014 12-14-2014 Chronic Blindness and vision defects (4 sources) Blurring of visual image; Translations: [Other visual disturbances] Episodic Complications of surgical procedures or medical care (2 sources) Postoperative fever; Translations: [Postprocedural fever] Onset: 05-07-2021 Resolved: 05-09-2021 Episodic Diseases of white blood cells (7 sources) Leukocytosis; Translations: [Elevated white blood cell count, unspecified] Onset: 05-18-2024 05-07-2024 Chronic Disorders of lipid metabolism (20 sources) Mixed hyperlipidemia; Translations: [Mixed hyperlipidemia] Onset: 05-03-2022 Chronic Headache; including migraine (10 sources) Tension-type headache; Translations: [Tension-type headache, unspecified, not intractable] Onset: 05-25-2024 02-10-2024 Chronic Headache; including migraine (2 sources) Headache; including migraine; Translations: [Headache, unspecified] Onset: 2024 Hepatitis (20 sources) Nonalcoholic steatohepatitis; Translations: [Nonalcoholic steatohepatitis (WHITNEY)] Onset: 05-25-2024 05-25-2024 Chronic Hypertension complicating ; childbirth and the puerperium (6 sources) Chronic hypertension complicating AND/OR reason for care during ; Translations: [Unspecified pre-existing hypertension complicating , unspecified trimester] Onset: 01-02-2021 Resolved: 05-04-2021 Chronic Malaise and fatigue (1 source) Fatigue; Translations: [Other fatigue] Episodic Miscellaneous mental health disorders (20 sources) Sleep state misperception; Translations: [Paradoxical insomnia] Onset: 09-30-2018 10-28-2018 Chronic Miscellaneous mental health disorders (2 sources) depression; Translations: [ depression] Episodic Mood disorders (20 sources) Major depression, single episode; Translations: [Major depressive disorder, single episode, unspecified] Onset: 05-02-2022 Chronic Neoplasms of unspecified nature or uncertain behavior (2 sources) Thrombocytosis; Translations: [Thrombocytosis] Onset: 10-18-2022 08-25-2024 Chronic Nutritional deficiencies (20 sources) Vitamin D deficiency; Translations: [Vitamin D deficiency, unspecified] Onset: 05-25-2024 05-25-2024 Chronic Nutritional deficiencies (2 sources) Iron deficiency; Translations: [Iron deficiency] Onset: 10-22-2024 10-24-2024 Episodic Other complications of ; puerperium affecting management of mother (1 source) Puerperal pyrexia of unknown origin; Translations: [Pyrexia of unknown origin following delivery] Episodic Other complications of (13 sources) Headache; Translations: [Other specified related conditions, second trimester] Resolved: 05-04-2021 Episodic Other connective tissue disease (1 source) Pain in right lower limb; Translations: [Pain in right leg] Episodic Other connective tissue disease (2 sources) Pain in right foot; Translations: [Pain in right foot] 10-22-2022 Episodic Other connective tissue disease (1 source) Pain in right arm; Translations: [Pain in right arm] 08-15-2023 Episodic Other eye disorders (6 sources) Optic disc edema; Translations: [Unspecified papilledema] Onset: 01-02-2021 Chronic Other gastrointestinal disorders (4 sources) Altered bowel function; Translations: [Change in bowel habit] 05-25-2024 Episodic Other gastrointestinal disorders (4 sources) Chronic constipation; Translations: [Other constipation] 05-25-2024 Episodic Other liver diseases (4 sources) Elevated liver enzymes level; Translations: [Abnormal levels of other serum enzymes] 05-07-2024 Episodic Other nervous system disorders (20 sources) Mass of body structure; Translations: [Benign intracranial hypertension] Onset: 07-04-2021 Chronic Other nervous system disorders (20 sources) Benign intracranial hypertension; Translations: [Benign intracranial hypertension] Onset: 07-04-2021 12-02-2022 Chronic Other nervous system disorders (1 source) Benign intracranial hypertension; Translations: [Pseudotumor cerebri] Onset: 01-23-2023 Chronic Other nervous system disorders (1 source) Paresthesia of hand ; Translations: [Anesthesia of skin] 08-08-2023 Episodic Other nervous system disorders (2 sources) Paresthesia of upper limb; Translations: [Anesthesia of skin] 08-15-2023 Episodic Other nutritional; endocrine; and metabolic disorders (17 sources) Obesity; Translations: [Other obesity due to excess calories] 09-22-2020 Chronic Other nutritional; endocrine; and metabolic disorders (20 sources) Hypercalcemia; Translations: [Hypercalcemia] Onset: 05-03-2022 Chronic Other nutritional; endocrine; and metabolic disorders (20 sources) Obesity caused by energy imbalance; Translations: [Other obesity due to excess calories] 05-02-2022 Chronic Other nutritional; endocrine; and metabolic disorders (1 source) Hypercalcemia; Translations: [Hypercalcemia] Onset: 05-03-2022 Chronic Other nutritional; endocrine; and metabolic disorders (2 sources) Weight gain; Translations: [Abnormal weight gain] Episodic Other nutritional; endocrine; and metabolic disorders (1 source) Increased thirst; Translations: [Polydipsia] 03-22-2024 Episodic Other and delivery including normal (2 sources) Second trimester ; Translations: [Encounter for supervision of normal , unspecified, second trimester] 01-09-2021 Episodic Residual codes; unclassified (20 sources) Obstructive sleep apnea syndrome; Translations: [Obstructive sleep apnea (adult) (pediatric)] Onset: 05-25-2024 06-02-2023 Chronic Residual codes; unclassified (1 source) Daytime somnolence; Translations: [Other hypersomnia] 06-02-2023 Chronic Septicemia (except in labor) (1 source) Infectious agent in bloodstream; Translations: [Sepsis, unspecified organism] Episodic Spondylosis; intervertebral disc disorders; other back problems (2 sources) Neck pain; Translations: [Cervicalgia] 08-15-2023 Episodic Unclassified (2 sources) Social and personal history finding 08-05-2024 Unclassified (1 source) Patient encounter status 08-05-2024 Past or Other Problems Problem Classification Problem Date Documented Da te Episodic/Chronic Contraceptive and procreative management (20 sources) Social and personal history finding; Translations: [Encounter for procreative management, unspecified] Onset: 08-05-2024 08-05-2024 Episodic Diabetes mellitus without complication (20 sources) High hemoglobin A1c level; Translations: [Other abnormal glucose] Onset: 05-03-2022 Episodic Genitourinary symptoms and ill-defined conditions (2 sources) Microscopic hematuria; Translations: [Other microscopic hematuria] Onset: 05-18-2024 05-07-2024 Episodic Immunizations and screening for infectious disease (9 sources) Anti-nuclear factor positive; Translations: [Other specified abnormal immunological findings in serum] Onset: 2024 01-01-2023 Episodic Neoplasms of unspecified nature or uncertain behavior (20 sources) Thrombocytosis; Translations: [Thrombocytosis] Onset: 05-03-2022 Episodic Other circulatory disease (20 sources) Elevated blood-pressure reading without diagnosis of hypertension; Translations: [Elevated blood-pressure reading, without diagnosis of hypertension] Onset: 06-24-2024 05-25-2024 Episodic Other circulatory disease (1 source) Elevated blood-pressure reading, without diagnosis of hypertension; Translations: [Elevated BP without diagnosis of hypertension] Onset: 06-24-2024 Episodic Other complications of ; puerperium affecting management of mother (3 sources) Delivery finding; Translations: [Complication of labor and delivery, unspecified] Onset: 05-02-2021 Resolved: 05-04-2021 Episodic Other gastrointestinal disorders (1 source) Change in bowel habit; Translations: [Altered bowel habits] Onset: 08-07-2024 Episodic Other gastrointestinal disorders (1 source) Other constipation; Translations: [Chronic constipation] Onset: 08-07-2024 Episodic Other liver diseases (1 source) Abnormal levels of other serum enzymes; Translations: [Elevated liver enzymes] Onset: 05-18-2024 Episodic Other nervous system disorders (1 source) Anesthesia of skin; Translations: [Anesthesia of skin] Onset: 08-19-2023 Episodic Other nervous system disorders (1 source) Paresthesia of skin; Translations: [Paresthesia of skin] Onset: 08-19-2023 Episodic Other screening for suspected conditions (not mental disorders or infectious disease) (20 sources) Patient encounter status; Translations: [Encounter for screening for diabetes mellitus] Onset: 05-02-2022 Episodic Residual codes; unclassified (4 sources) Influenza vaccination declined; Translations: [Immunization not carried out because of patient refusal] Onset: 01-02-2021 Episodic Results Test Name Value Interpretation Reference Range Facility [facility] 12-17-2024 BRITANY Telephone (HEMAWS) -- SHAHEED JACKSON ([id number]) 4 F Date Time Provider Department 12/17/24 LIZA CAMARILLO HEMAWS During your visit today, we recorded the following information about you: Mela Sutton LPN 12/17/2024 3:58 PM Signed Oanh. I apologize that I was unable to get these done. I was not able to get the time off of work. I was wondering though, my office here does lab draws, would it be possible for them to do the labs? They would just need the order (obviously) and the instructions. That way I could have them draw it and still be able to work? I wasn?t sure if that would be doable on your end? Thank you Copied from my chart message, Spoke with pt. She works at [employer], and they have nurses who work there and can draw blood. The blood is then sent to [facility]. . She is having iron studies x 2 drawn 1 hr apart after iron has been taken. Informed I would speak with Dr. Camarillo and if he says it's ok would then fax the orders. To [phone] Attn: Shaheed Sutton LPN Allergies As of Date: 12/17/2024 (No Known Allergies) Date Reviewed: 10/24/2024 Reviewed by: Liza Camarillo DO - Fully Assessed Prescriptions as of 12/22/2024 - Phentermine HCl (ADIPEX-P) 37.5 mg tablet - cholecalciferol (VITAMIN D-3) 50 mcg (2,000 unit) tablet Take 2,000 Units by mouth once daily. - topiramate (TOPAMAX) 100 mg tablet Take 1 tablet by mouth daily at bedtime. - guanfacine HCl (INTUNIV ER ORAL) Take 1 tablet by mouth daily at bedtime. - atorvastatin (LIPITOR) 20 mg tablet Take 1 tablet by mouth once daily. - PROZAC 20 mg capsule Take 40 mg by mouth once daily. - hydrOXYzine HCl (ATARAX) 25 mg tablet Take 25 mg by mouth three times a day as needed. - buPROPion XL (WELLBUTRIN XL) 300 mg 24 hr tablet Take 1 tablet by mouth once daily. Per Psych, Tranquility - cholecalciferol, Vitamin D3, (VITAMIN D3) 1,250 mcg (50,000 unit) cap capsule Take 1 capsule by mouth one time a week. - aspirin/acetaminophen/caff eine (EXCEDRIN MIGRAINE ORAL) Take by mouth as needed. Drug free headache Care - Lacto no.76/Bifido/FOS/larch (WOMEN'S PROBIOTIC ORAL) Take 1 capsule by mouth once daily. - mv-min/iron/folic/calcium/ vitK (WOMEN'S MULTIVITAMIN ORAL) Take 1 tablet by mouth once daily. - propranolol (INDERAL) 10 mg tablet Take 10 mg by mouth. As needed - flaxseed oil (OMEGA 3 ORAL) Take 2 capsules by mouth once daily. - CPAP/BIPAP/OTHER autoCPAP 8-10 cmH2O [facility] - acetaminophen 325 mg cap Take by mouth as needed. - cetirizine (ZYRTEC) 10 mg tablet Take 1 tablet by mouth once daily. - Ibuprofen 200 mg cap Take by mouth every 4 hours as needed. FOR PAIN. 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] 09/30/2018 Class 2 obesity due to excess calories without * Pseudotumor cerebri [G93.2] 07/04/2021 Major depressive disorder with single episode [*05/02/2022 PANCHO (generalized anxiety disorder) [F41.1] 05/02/2022 Elevated hemoglobin A1c [R73.09] 05/03/2022 Hyperlipidemia, mixed [E78.2] 05/03/2022 Hypercalcemia [E83.52] 05/03/2022 Elevated LFTs [R79.89] 05/03/2022 Thrombocytosis [D75.839] 05/03/2022 WHITNEY (nonalcoholic steatohepatitis) [K75.81] 05/25/2024 Vitamin D deficiency [E55.9] 05/25/2024 JUAN M (obstructive sleep apnea) [G47.33] 05/25/2024 Medication management [Z79.899] 05/25/2024 Elevated BP without diagnosis of hypertension [*06/24/2024 Desire for [Z31.9] 08/05/2024 Abnormal endometrial ultrasound [R93.5] 08/19/2024 Encounter Status:Closed by MELA SUTTON on 12/22/24 Normal [facility] CNNURSEon 10-22-2024 [facility] Nurse Visit (OBGYWM) -- SHAHEED JACKSON ([id number]) 4 F Date Time Provider Department 10/22/24 4:00 PM NURSE MANAGER USER INTERFACE [facility] OBGYWM During your visit today, we recorded the following information about you: Crow Mauro LPN 11/01/2024 9:14 AM Addendum Patient ID with two (2) identifiers verified by: Crow Mauro LPN Allergies reviewed and updated: Yes Current pain intensity is 0 on a 0-10 pain scale. Any concerns about safety in the home/falls: Not at risk for falls The patient is here for an injection of Gardasil. Dose: 0.5 ml Route: Intramuscular Given without incident. Site: right deltoid Dr. Boothe in office at time of injection. Referring Provider: SELF [[id number]] Allergies As of Date: 10/22/2024 (No Known Allergies) Date Reviewed: 10/22/2024 Reviewed by: Zenaida Brooks Ma, NINA - Fully Assessed Primary Visit Diagnosis:Need for vaccination [Z23] Prescriptions as of 11/01/2024 - Phentermine HCl (ADIPEX-P) 37.5 mg tablet - cholecalciferol (VITAMIN D-3) 50 mcg (2,000 unit) tablet Take 2,000 Units by mouth once daily. - topiramate (TOPAMAX) 100 mg tablet Take 1 tablet by mouth daily at bedtime. - guanfacine HCl (INTUNIV ER ORAL) Take 1 tablet by mouth daily at bedtime. - atorvastatin (LIPITOR) 20 mg tablet Take 1 tablet by mouth once daily. - PROZAC 20 mg capsule Take 40 mg by mouth once daily. - hydrOXYzine HCl (ATARAX) 25 mg tablet Take 25 mg by mouth three times a day as needed. - buPROPion XL (WELLBUTRIN XL) 300 mg 24 hr tablet Take 1 tablet by mouth once daily. Per Psych, Tranquility - cholecalciferol, Vitamin D3, (VITAMIN D3) 1,250 mcg (50,000 unit) cap capsule Take 1 capsule by mouth one time a week. - aspirin/acetaminophen/caff eine (EXCEDRIN MIGRAINE ORAL) Take by mouth as needed. Drug free headache Care - Lacto no.76/Bifido/FOS/larch (WOMEN'S PROBIOTIC ORAL) Take 1 capsule by mouth once daily. - mv-min/iron/folic/calcium/ vitK (WOMEN'S MULTIVITAMIN ORAL) Take 1 tablet by mouth once daily. - propranolol (INDERAL) 10 mg tablet Take 10 mg by mouth. As needed - flaxseed oil (OMEGA 3 ORAL) Take 2 capsules by mouth once daily. - CPAP/BIPAP/OTHER autoCPAP 8-10 cmH2O [facility] - acetaminophen 325 mg cap Take by mouth as needed. - cetirizine (ZYRTEC) 10 mg tablet Take 1 tablet by mouth once daily. - Ibuprofen 200 mg cap Take by mouth every 4 hours as needed. FOR PAIN. 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] 09/30/2018 Class 2 obesity due to excess calories without * Pseudotumor cerebri [G93.2] 07/04/2021 Major depressive disorder with single episode [*05/02/2022 PANCHO (generalized anxiety disorder) [F41.1] 05/02/2022 Elevated hemoglobin A1c [R73.09] 05/03/2022 Hyperlipidemia, mixed [E78.2] 05/03/2022 Hypercalcemia [E83.52] 05/03/2022 Elevated LFTs [R79.89] 05/03/2022 Thrombocytosis [D75.839] 05/03/2022 WHITNEY (nonalcoholic steatohepatitis) [K75.81] 05/25/2024 Vitamin D deficiency [E55.9] 05/25/2024 JUAN M (obstructive sleep apnea) [G47.33] 05/25/2024 Medication management [Z79.899] 05/25/2024 Elevated BP without diagnosis of hypertension [*06/24/2024 Desire for [Z31.9] 08/05/2024 Abnormal endometrial ultrasound [R93.5] 08/19/2024 Encounter Status:Closed by CROW MAURO on 10/22/24 Normal [facility] CNOVSPon 10-22-2024 CNOVSP Visit (SP) Office (H EMAWS) -- SHAHEED JACKSON ([id number]) 4 F Date Time Provider Department 10/22/24 4:10 PM LIZA CAMARILLO During your visit today, we recorded the following information about you: Temperature Pulse Blood pressure Weight 98 degrees 95/minute 112/76 111.6 kg Liza Camarillo DO 10/24/2024 9:35 AM Signed Hematologic problem(s): 1) Leukocytosis and thrombocytosis. HPI: The patient is a 24-year-old female with past medical history as outlined below. Has a 2-year history of leukocytosis/neutrophilia and thrombocytosis. Had not previously had iron studies. Regular menses. Had HMB before her daughter's about 3 years ago. 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 Less heavy over the last year. Didn't breast feed. Recently had an IV vitamin and mineral infusion--delayed menses about 2 weeks. Not a blood donor. Very consistent with CPAP. Has been using nearly a year. Topomax helping with frequent HAs. Recently saw neurology for this. Had MRI scheduled. Tries to take Excedrin sparingly. Works at [employer] in [place]. All four wisdom teeth extracted yesterday. Needed for about a year--no symptoms. Has not previously taken oral iron. Presents for ongoing hematologic management. Interim history: No complaints today. Has been getting and supplemental iron via multivitamin with iron. PAST MEDICAL HISTORY Diagnosis Date Attention deficit hyperactivity disorder (ADHD), combined type 12/14/2014 Class 2 obesity due to excess calories without serious comorbidity with body mass index (BMI) of 37.0 to 37.9 in adult Elevated hemoglobin A1c 05/03/2022 PANCHO (generalized anxiety disorder) 05/02/2022 Hyperlipidemia, mixed 05/03/2022 Insulin resistance Major depressive disorder with single episode 05/02/2022 Oppositional defiant disorder 11/07/2007 JUAN M (obstructive sleep apnea) 05/25/2024 Seeing [facility] Sleep Med. 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 Polycystic ovaries Prediabetes Pseudotumor cerebri 07/04/[address] Andrew Seasonal allergies Thrombocytosis 05/03/2022 Chronic since 2003 (500-550) Vitamin D deficiency 05/25/2024 PAST SURGICAL HISTORY Procedure Laterality Date SECTION HX 05/02/2021 NONE PAST SURGICAL HISTORY OF 07/20/2024 [place] teeth extraction topiramate (TOPAMAX) 100 mg tablet Take 1 tablet by mouth daily at bedtime. guanfacine HCl (INTUNIV ER ORAL) Take 1 tablet by mouth daily at bedtime. atorvastatin (LIPITOR) 20 mg tablet Take 1 tablet by mouth once daily. PROZAC 20 mg capsule Take 40 mg by mouth once daily. hydrOXYzine HCl (ATARAX) 25 mg tablet Take 25 mg by mouth three times a day as needed. buPROPion XL (WELLBUTRIN XL) 300 mg 24 hr tablet Take 1 tablet by mouth once daily. Per Psych, [place] cholecalciferol, Vitamin D3, (VITAMIN D3) 1,250 mcg (50,000 unit) cap capsule Take 1 capsule by mouth one time a week. aspirin/acetaminophen/caff eine (EXCEDRIN MIGRAINE ORAL) Take by mouth as needed. Drug free headache Care peg Cadena jensen, r hamn (AZO VAGINAL HEALTH PROBIOTIC ORAL) Take 1 capsule by mouth once daily. Lacto no.76/Bifido/FOS/larch (WOMEN'S PROBIOTIC ORAL) Take 1 capsule by mouth once daily. mv-min/iron/folic/calcium/ vitK (WOMEN'S MULTIVITAMIN ORAL) Take 1 tablet by mouth once daily. propranolol (INDERAL) 10 mg tablet Take 10 mg by mouth. As needed flaxseed oil (OMEGA 3 ORAL) Take 2 capsules by mouth once daily. CPAP/BIPAP/OTHER autoCPAP 8-10 cmH2O [facility] acetaminophen 325 mg cap Take by mouth as needed. cetirizine (ZYRTEC) 10 mg tablet Take 1 tablet by mouth once daily. Ibuprofen 200 mg cap Take by mouth every 4 hours as needed. FOR PAIN. ALLERGIES No Known Allergies Social History Tobacco Use Smoking status: Never Passive exposure: Never Smokeless tobacco: Never Vaping Use Vaping status: Never Used Substance Use Topics Alcohol use: No Drug use: No FAMILY HISTORY Problem Relation Age of Onset other (Other) Mother restless leg Lipids Father Diabetes Maternal Grandmother Hypertension Maternal Grandmother other (sleep apnea) Maternal Grandmother Hypertension Maternal Grandfather other (sleep apnea) Maternal Grandfather Skin Cancer Maternal Grandfather Colon Cancer Paternal Grandmother Lipids Paternal Grandfather Diabetes Paternal Grandfather REVIEW OF SYSTEMS: Constitutional: No episodes of fever and night sweats. Neuro: No vertigo, dizziness and imbalance. No symptoms of neuropathy. HEENT: No recent change in voice, vision or hearing. Resp: No cough, wheeze and hemoptysis. No shortness of breath at rest. No NGUYEN. CVS: No exertional chest pain, PND, orthopnea and LE edema. GI: No reflux, n/v, change in bowel habits (alternating diarrhea and constipation) or abdominal pain. : No dysuria or gross hematuria. (more content not included)... Normal [facility] CBC W Auto Differential pane l (Bld)on 09-29-2024 Basophils (Bld) [#/Vol] 0.03 10*3/uL Normal <0.11 [facility] Comment on above: Order Comment: Speci men Type: BLOOD SPECIMENOrdering Facility: [facility] Address: [address] [place] [address] Performed By: #### 5 7021-8 ####[facility] LABCLIA [id number] [place] [address] [place] Basophils/100 WBC (Bld) 0.3 % Normal [facility] Comment on above: Order Comment: Speci men Type: BLOOD SPECIMENOrdering Facility: [facility] Address: [address] [place] [address] Performed By: #### 5 7021-8 ####[facility] LABCLIA [id number] [place] [address] [place] Differential cell count method Nom (Bld) Auto Normal [facility] Comment on above: Order Comment: Speci men Type: BLOOD SPECIMENOrdering Facility: [facility] Address: [address] [place] [address] Performed By: #### 5 7021-8 ####[facility] LABCLIA [id number] [place] [address] [place] Eosinophils (Bld) [#/Vol] 0.23 10*3/uL Normal <0.46 [facility] Comment on above: Order Comment: Speci men Type: BLOOD SPECIMENOrdering Facility: [facility] Address: [address] [place] [address] Performed By: #### 5 7021-8 ####[facility] LABCLIA [id number] [address] [place] Eosinophils/100 WBC (Bld) 2.2 % Normal [facility] Comment on above: Order Comment: Speci men Type: BLOOD SPECIMENOrdering Facility: [facility] Address: [address] [place] [address] Performed By: #### 5 7021-8 ####[facility] LABCLIA [id number] [place] [address] [place] Erythrocyte distribution width (RBC) [Ratio] 13.6 % Normal 11.5-15.0 [facility] Comment on above: Order Comment: Speci men Type: BLOOD SPECIMENOrdering Facility: [facility] Address: [address] [place] [address] Performed By: #### 5 7021-8 ####[facility] LABCLIA [id number] [place] [address] [place] Hematocrit (Bld) [Volume fraction] 35.1 % Low 36.0-46.0 [facility] Comment on above: Order Comment: Speci men Type: BLOOD SPECIMENOrdering Facility: [facility] Address: [address] [place] [address] Performed By: #### 5 7021-8 ####[facility] LABIA [id number] [place] [address] [place] Hemoglobin (Bld) [Mass/Vol] 11.4 g/dL Low 11.5-15.5 [facility] Comment on above: Order Comment: Speci men Type: BLOOD SPECIMENOrdering Facility: [facility] Address: [address] [place] [address] Performed By: #### 5 7021-8 ####[facility] LABIA [id number] [place] [address] [place] Immature granulocytes (Bld) [#/Vol] 0.03 10*3/uL Normal <0.10 [facility] Comment on above: Order Comment: Speci men Type: BLOOD SPECIMENOrdering Facility: [facility] Address: [address] [place] [address] Performed By: #### 5 7021-8 ####[facility] LABIA [id number] [place] [address] [place] Immature granulocytes/100 WBC (Bld) 0.3 % Normal [facility] Comment on above: Order Comment: Speci men Type: BLOOD SPECIMENOrdering Facility: [facility] Address: [address] [place] [address] Performed By: #### 5 7021-8 ####[facility] LABIA [id number] [place] [address] [place] Lymphocytes (Bld) [#/Vol] 3.60 10*3/uL Normal 1.00-4.00 [facility] Comment on above: Order Comment: Speci men Type: BLOOD SPECIMENOrdering Facility: [facility] Address: [address] [place] [address] Performed By: #### 5 7021-8 ####[facility] LABIA [id number] [place] [address] [place] Lymphocytes/100 WBC (Bld) 33.7 % Normal [facility] Comment on above: Order Comment: Speci men Type: BLOOD SPECIMENOrdering Facility: [facility] Address: [address] [place] [address] Performed By: #### 5 7021-8 ####[facility] LABIA [id number] [place] [address] [place] MCH (RBC) [Entitic mass] 29.1 pg Normal 26.0-34.0 [facility] Comment on above: Order Comment: Speci men Type: BLOOD SPECIMENOrdering Facility: [facility] Address: [address] [place] [address] Performed By: #### 5 7021-8 ####[facility] LABIA [id number] [place] [address] [place] MCHC (RBC) [Mass/Vol] 32.5 g/dL Normal 30.5-36.0 [facility] Comment on above: Order Comment: Speci men Type: BLOOD SPECIMENOrdering Facility: [facility] Address: [address] [place] [address] Performed By: #### 5 7021-8 ####[facility] LABIA [id number] [place] [address] [place] MCV (RBC) [Entitic vol] 89.5 fL Normal 80.0-100.0 [facility] Comment on above: Order Comment: Speci men Type: BLOOD SPECIMENOrdering Facility: [facility] Address: [address] [place] [address] Performed By: #### 5 7021-8 ####[facility] LABCLIA [id number] [address], [facility] [place] Monocytes (Bld) [#/Vol] 0.87 10*3/uL High <0.87 [facility] Comment on above: Order Comment: Speci men Type: BLOOD SPECIMENOrdering Facility: [facility] Address: [address] [place] [address] Performed By: #### 5 7021-8 ####[facility] LABCLIA [id number] [address], [facility] [place] Monocytes/100 WBC (Bld) 8.2 % Normal [facility] Comment on above: Order Comment: Speci men Type: BLOOD SPECIMENOrdering Facility: [facility] Address: [address] [place] [address] Performed By: #### 5 7021-8 ####[facility] LABCLIA [id number] [address], [facility] [place] Neutrophils (Bld) [#/Vol] 5.91 10*3/uL Normal 1.45-7.50 [facility] Comment on above: Order Comment: Speci men Type: BLOOD SPECIMENOrdering Facility: [facility] Address: [address] [place] [address] Performed By: #### 5 7021-8 ####[facility] LABCLIA [id number] [facility] [address], [facility] [place] Neutrophils/100 WBC (Bld) 55.3 % Normal [facility] Comment on above: Order Comment: Speci men Type: BLOOD SPECIMENOrdering Facility: [facility] Address: [address] [place] [address] Performed By: #### 5 7021-8 ####[facility] LABCLIA [id number] [address] [place] [address] [place] Nucleated RBC (Bld) [#/Vol] 10*3/uL Normal <0.01 [facility] Comment on above: Order Comment: Speci men Type: BLOOD SPECIMENOrdering Facility: [facility] Address: [address] [place] [address] Performed By: #### 5 7021-8 ####[facility] LABCLIA [id number] [place] [address] [place] Nucleated RBC/100 WBC (Bld) [Ratio] 0.0 /100 WBC Normal [facility] Comment on above: Order Comment: Speci men Type: BLOOD SPECIMENOrdering Facility: [facility] Address: [address] [place] [address] Performed By: #### 5 7021-8 ####[facility] LABIA [id number] [place] [address] [place] Platelet mean volume (Bld) [Entitic vol] 8.1 fL Low 9.0-12.7 [facility] Comment on above: Order Comment: Speci men Type: BLOOD SPECIMENOrdering Facility: [facility] Address: [address] [place] [address] Performed By: #### 5 7021-8 ####[facility] LABIA [id number] [place] [address] [place] Platelets (Bld) [#/Vol] 451 10*3/uL High 150-400 [facility] Comment on above: Order Comment: Speci men Type: BLOOD SPECIMENOrdering Facility: [facility] Address: [address] [place] [address] Performed By: #### 5 7021-8 ####[facility] LABCLIA [id number] [place] [address] [place] RBC (Bld) [#/Vol] 3.92 10*6/uL Normal 3.90-5.20 [facility] Comment on above: Order Comment: Speci men Type: BLOOD SPECIMENOrdering Facility: [facility] Address: [address] [place] [address] Performed By: #### 5 7021-8 ####[facility] [id number] [place] [address] [place] WBC (Bld) [#/Vol] 10.67 10*3/uL Normal 3.70-11.00 [facility] Comment on above: Order Comment: Speci men Type: BLOOD SPECIMENOrdering Facility: [facility] Address: [address] [place] [address] Performed By: #### 5 7021-8 ####[facility] [id number] [place] [address] [place] CRP SerPl-mCncon 09-29-2024 CRP [Mass/Vol] 0.6 mg/dL Normal <0.9 [facility] Comment on above: Order Comment: Speci men Type: BLOOD SPECIMENOrdering Facility: [facility] Address: [address] [place] [address] Performed By: #### 5 0190-8, 1987-06, 2275-05 ####[facility] [id number] [place] [address] [place] ESR Westergren method (Bld) [Velocity]on 09-29-2024 ESR (Bld) [Velocity] 37 mm/h High 0-20 [facility] Comment on above: Order Comment: Speci men Type: BLOOD SPECIMENOrdering Facility: [facility] Address: [address] [place] [address] Performed By: #### 4 537-7 ####[facility] [id number] [place] [id number] [place] Ferritin SerPl-mCncon 2024 Ferritin [Mass/Vol] 105.0 ng/mL Normal 14.7-205.1 [facility] Comment on above: Order Comment: Speci men Type: BLOOD SPECIMENOrdering Facility: [facility] Address: [address] [place], [place] [address] Performed By: #### 5 0190-8, 2275-05 ####[facility] LABCLIA [id number] [address] [address] [place] Iron and Iron binding capaci ty panelon 09-29-2024 Iron [Mass/Vol] 54 ug/dL Normal 41-186 [facility] Comment on above: Order Comment: Speci men Type: BLOOD SPECIMENOrdering Facility: [facility] Address: [address] [place] [address] Performed By: #### 5 0190-8, 2275-05 ####[facility] LABIA [id number] [place] [id number] [place] Iron binding capacity [Mass/Vol] 295 ug/dL Normal 232-386 [facility] Comment on above: Order Comment: Speci men Type: BLOOD SPECIMENOrdering Facility: [facility] Address: [address] [place] [address] Performed By: #### 5 0190-8, 2275-05 ####[facility] LABIA [id number] [place] [id number] [place] Iron/TIBC [Molar ratio] 18.3 % Normal 15.0-57.0 [facility] Comment on above: Order Comment: Speci men Type: BLOOD SPECIMENOrdering Facility: [facility] Address: [address] [place], [place] [address] Performed By: #### 5 0190-8, 2275-05 ####[facility] LABIA [id number] [address] [address] [place] US Pelvison 08-19-2024 Indication desire for , infertility Impression The uterus is retroverted and measures 85 mm x 45 mm x 62 mm. The endometrial thickness is 10.2 mm. There is a 4 mm x 4 mm x 3 mm fluid filled area within the endometrium. There is no chorionic ring. The right ovary measures 40 mm x 28 mm x 18 mm. The left ovary measures 44 mm x 35 mm x 28 mm. Both ovaries contain multiple small follicular cysts at the periphery of the ovarian stroma. This finding is suggestive of polycystic ovarian syndrome. No adnexal masses were observed. There is a small amount of free fluid visualized. Recommendations Consider HCG. Consider SIS for further evaluation of endometrial cavity if clinically indicated. Menstrual History LMP on 08/04/2024. Cycle: regular cycle Method Transabdominal, transvaginal, 3D ultrasound examination, Color Doppler examination. View: Adequate visualization Uterus Uterus: Visualized Uterus position: retroverted Description of uterine malformations: none Myometrium: normal Endometrium: small cyst within the endo measuring approx 4 mm x 4 mm x 3 mm Cervix details: normal Uterus length 85 mm Uterus width 62 mm Uterus height 45 mm Uterus Vol 121.9 cm Endometrial thickness, total 10.2 mm Fibroids: No fibroids identified Polyps: No polyps identified Right Ovary Rt ovary: Visualized Rt ovary morphology: premenopausal polycystic Rt ovary D1 40 mm Rt ovary D2 28 mm Rt ovary D3 18 mm Rt ovary Vol 10.6 cm Rt ovarian cyst(s): No cysts identified Left Ovary Lt ovary: Visualized Lt ovary morphology: premenopausal polycystic Lt ovary D1 44 mm Lt ovary D2 35 mm Lt ovary D3 28 mm Lt ovary Vol 22.8 cm Lt ovarian cyst(s): No cysts identified Cul de Sac Visualized. free fluid visualized: small Performed By: Suzie Madrid RDMS Read By: Flower Amezquita M.D. MATERNAL MEDICINE [facility] Radiology Study observation (narrative) [facility] Brain/Head without Contrasto n 08-11-2024 Brain/Head without Contrast [facility] Imaging Services [address] [place], [place] [id number] Brain/Head without Contrast MR#: [id number] Acct: [id number] Name: SHAHEED JACKSON Rep #: [id number] : 2000 F 24 From: Jose D martinez MD PCP: Dr. Bryant Grimm MD Status: REG ER Study: Brain/Head without Contrast Date of Exam: 07/19 07/11 Exam# [id number] Ordering Dr: Hakeem Negrete DO PROCEDURE: BRAIN/HEAD WITHOUT CONTRAST 08/11/2024 REASON FOR EXAM: MORRIS TECHNIQUE: BRAIN/HEAD WITHOUT CONTRAST Coronal and Sagittal reconstruction series were provided. One or more dose reduction techniques were used (e.g., Automated exposure control, adjustment of the mA and/or kV according to patient size, use of iterative reconstruction technique. RADIATION DOSE SUMMARY: CTDlvol: 44.99 mGy DLP: 779.24 mGycm COMPARISON: Prior study dated July 07, 2023. FINDINGS: Brain: Normal CSF Spaces: Normal Sinuses/Mastoids: Clear at visualized levels Bones: Unremarkable CT/Brain/Head without Contrast IMPRESSION: NORMAL NONCONTRAST HEAD CT. Reading Location: [facility] CC: Dr. Hakeem Negrete DO; Dr. Bryant Grimm MD Business Information Analyst: Signed Normal [facility] Emergency Department Summary on 08-11-2024 Emergency Department Summary [facility] Medical Records Department [address] [place] [address] Emergency Department Summary 08/11/24 MR#: [id number] Acct: [id number] Name: SHAHEED JACKSON Rep #: [id number] : 2000 24 From: Hakeem Negrete DO PCP: Dr. Bryant Girmm MD Status:REG ER Location: ED HPI History of Present Illness Chief Complaint: Headache Narrative Narrative: Chief complaint and HPI: Headache. 24-year-old female with past medical history of migraines, chronic headache, pseudotumor cerebri presents for evaluation of headache. Patient states she follows with neurology for chronic headaches. States she recently just had an MRI of the brain as well as MRV that was unremarkable. She states she had this performed as she has had a constant headache for the past 2 years. Patient states yesterday evening she developed a headache that has progressively worsened. She took her Topamax and Excedrin with some relief. Patient states she talked to her PCP who sent her in for further evaluation as she states this feels different than her typical migraine. She states this is because the headache is more in the posterior of the brain versus frontal. She endorses photophobia and nausea. Denies any trauma, fever, chills, URI symptoms, neck pain, syncope, numbness, tingling, weakness, vomiting. Review of systems: See HPI Medications: As listed on the chart Allergies: As listed on the chart PFSH: Per chart Vital signs: As listed on the chart. Reviewed. Physical exam: Gen: A O x3, NAD Head: Normocephalic, atraumatic Eyes: No sclera icterus, conjunctiva clear, PERRL, EOMI ENT: Moist mucous membranes, No facial asymmetry Neck: Trachea midline, No JVD CV: RRR, no murmurs, no peripheral edema Resp: Lungs CTA BL, no w/r/c GI: Abd soft, non-distended, non-tender, no r/r/g Musc: Full ROM, no deformity, strength +5/5 in all extremities, no ataxia Skin: Warm, dry, intact Neuro: Alert, oriented, grossly intact, sensation intact, no focal deficits Psych: Cooperative, appropriate mood and affect [facility] Medical History Pseudotumor cerebri Allergy/AdvReac Type Severity Reaction Status Date / Time No Known Allergies Allergy Verified 07/07/23 10:12 Surgical History Hx of section Social History Smoking Status: Never smoker substance use type: does not use EXAM Physical Exam Const Vital Signs: 08/11/24 12:07 08/11/24 14:07 Temperature 98.1 F Temperature Source Oral Pulse Rate 91 63 Respiratory Rate 16 18 Blood Pressure 164/71 H Blood Pressure Mean 102 Pulse Ox 99 97 Oxygen Delivery Method Room Air Room Air MDM MDM MDM Narrative Medical decision making narrative: 24-year-old female with past medical history of migraines, chronic headache, pseudotumor cerebri presents for evaluation of headache. Patient states she took her Topamax and Excedrin with some relief. States that it feels different than her typical migraines given that it is more posterior that frontal. Denies acute onset of headache reaching maximal intensity in under one hour. This is neither the worst headache that they have ever experienced, nor was the onset timed with exertional activity or trauma. Patient has not experienced any fever, unusual neck pain or stiffness, syncope. Denies numbness, tingling, or weakness of the extremities. Differential diagnosis includes but is not limited to migraine, tension headache, suspect less likely intracranial abnormality, SAH, pseudotumor cerebri. NS bolus, morphine, Reglan, Benadryl ordered for migraine cocktail. CT of the head ordered. CT of the head shows no acute intracranial abnormality. At this point in time, I suspect patient's symptoms are secondary to a migraine. On reevaluation, patient states her symptoms have improved. Patient is stable to discharge home. Recommend following up with PCP and neurologist. She was offered antinausea medicine for home but declined. Return precautions explained. Impression: 1. Migraine 2. History of migraines Radiography Diagnostic Testing: Clinical Impression(s) from Imaging Studies Brain CT 08/11/24 14:31 IMPRESSION: NORMAL NONCONTRAST HEAD CT. Reading Location: [facility] Discharge Plan Triage Chief Complaint: Headache ED Provider: Hakeem Negrete Dx/Rx/DC Orders Clinical Impression: Migraine Instructions: ED, Migraine (Classical) Primary Care Provider: Bryant Grimm Referrals: Bryant Grimm MD [Primary Care Provider] - Activity Restrictions/Additional Instructions: Mdaelino (more content not included)... Normal [facility] 08-07-2024 [facility] Office Visit ([facility] ) -- SHAHEED JACKSON ([id number]) 4 F Date Time Provider Department 08/07/24 11:00 AM ROSA M PARSONS [facility] During your visit today, we recorded the following information about you: Pulse Respiration Blood pressure Weight 80/minute 16/minute 119/76 120 kg Height 1.676 m Rosa M Parsons APRN.CNP 09/14/2024 6:20 PM Signed NAME: Shaheed Jackson AGE: [age] year old Patient is referred in consultation by Bryant Grimm for an opinion regarding MASLD and my final recommendations will be communicated back to the requesting physician by way of shared Medical Record. PRESENTING COMPLAINT AND HISTORY HPI: The patient is a pleasant 24-year-old female with fatty liver and hypertriglyceridemia, presenting for evaluation and management of fatty liver. PMHx includes HLD, JUAN M, WHITNEY and obesity She reports being diagnosed with fatty liver following an ultrasound performed in May, and is aware that one of her liver enzymes is slightly elevated, which was attributed to the fatty liver. Her liver function, platelets, and albumin are normal. She is currently awaiting insurance approval for Ozempic for weight loss, as her insurance plan does not have weight loss benefits. 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 She is also taking flaxseed oil (omega-3-6-9) daily as recommended, but has not been started on any other lipid-lowering medications prior to this visit. Her triglycerides were measured at 391 two years ago (reference <150), and acknowledges this is a significant contributor to her fatty liver. She denies regular alcohol use, stating she tries not to drink and only consumed alcohol at a alliance party the night before the visit, as she does not like the way it makes her feel. She reports her glucose has been pretty normal and denies having diabetes. She takes propranolol for anxiety, not for blood pressure, and is not currently on a statin. Regarding gastrointestinal symptoms, she describes lifelong constipation, characterized by infrequent bowel movements, sometimes going several days without a bowel movement. When she does have a bowel movement, the stool is often rock hard or, more recently, in the form of little pellets. She notes that at times her stools can be real soft, but this is less common. She primarily drinks water in an effort to improve her symptoms. She expresses concern about the chronicity and familial nature of her constipation, noting that her father and other family members have also experienced significant bowel issues. She has never undergone a colonoscopy but expresses interest in one, particularly given her family history of colon cancer in her grandmother, which was detected by colonoscopy. She reports no current appointments at the main campus but is open to scheduling further testing as needed. She is the mother of a 3-year-old daughter and is considering another , having recently discussed this with her OB. She is not aware of any personal or family history of heart disease, though her paternal grandfather of a presumed heart attack and her father has high cholesterol. (May) Abdominal Ultrasound: Fatty infiltration of the liver (2 years ago) Lipid Panel: - Triglycerides: 391 mg/dL (elevated) Liver Enzymes: Mildly elevated Platelets: Normal Albumin: Normal Metabolic Syndrome Risk factors: 4/5 1) Diabetes/ Abnormal FBS >100mg/dL:Prediabetes 2) Hypertension : No 3)Triglycerides more then 150 : Yes 4) HDL (<50 female and <40 male): Yes 5) Central obesity ( Waist >102 men and >88 female) - Body mass index is 42.75 kg/(m2). PAST SURGICAL HISTORY Procedure Laterality Date SECTION HX 05/02/2021 NONE PAST SURGICAL HISTORY OF 07/20/2024 [place] teeth extraction PAST MEDICAL HISTORY Diagnosis Date Attention deficit hyperactivity disorder (ADHD), combined type 12/14/2014 Class 2 obesity due to excess calories without serious comorbidity with body mass index (BMI) of 37.0 to 37.9 in adult Elevated hemoglobin A1c 05/03/2022 PANCHO (generalized anxiety disorder) 05/02/2022 Hyperlipidemia, mixed 05/03/2022 Major depressive disorder with single episode 05/02/2022 Oppositional defiant disorder 11/07/2007 JUAN M (obstructive sleep apnea) 05/25/2024 Seeing [facility] Sleep Med. 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 Pseudotumor cerebri 07/04/[address] Andrew Seasonal allergies Thrombocytosis 05/03/2022 Chronic since 2003 (500-550) Vitamin D deficiency 05/25/2024 Social History Tobacco Use Smoking status: Never Passive exposure: Never Sm (more content not included)... Normal [facility] Comprehensive metabolic 2000 panelon 08-07-2024 Albumin [Mass/Vol] 4.6 g/dL Normal 3.9-4.9 [facility] Comment on above: Order Comment: Speci men Type: BLOOD SPECIMENOrdering Facility: [facility] Address: [address] [place] [address] Performed By: #### Margaret JASSO, 62772-2, 68466-8, 88922-1 ####[facility] LABCLIA [id number] [place] [address] [place] ALP [Catalytic activity/Vol] 46 U/L Normal 34-123 [facility] Comment on above: Order Comment: Speci men Type: BLOOD SPECIMENOrdering Facility: [facility] Address: [address] [place] [address] Performed By: #### Margaret JASSO, 87195-3, 79411-3, ####[facility] LABCLIA [id number] [place] [address] [place] ALT [Catalytic activity/Vol] 33 U/L Normal 7-38 [facility] Comment on above: Order Comment: Speci men Type: BLOOD SPECIMENOrdering Facility: [facility] Address: [address] [place] [address] Performed By: #### Margaret JASSO, 43652-3, 85988-7, ####[facility] LABCLIA [id number] [place] [id number] [place] Anion gap [Moles/Vol] 15 mmol/L Normal 8-15 [facility] Comment on above: Order Comment: Speci men Type: BLOOD SPECIMENOrdering Facility: [facility] Address: [address] [place] [address] Performed By: #### Margaret JASSO, 81065-5, 87950-0, ####[facility] LABCLIA [id number] [address] [address] [place] AST [Catalytic activity/Vol] 30 U/L Normal 13-35 [facility] Comment on above: Order Comment: Speci men Type: BLOOD SPECIMENOrdering Facility: [facility] Address: [address] [place], [place] [address] Performed By: #### Margaret JASSO, 30208-0, 34001-7, ####[facility] LABCLIA [id number] [address] [address] [place] Bilirubin [Mass/Vol] 0.3 mg/dL Normal 0.2-1.3 [facility] Comment on above: Order Comment: Speci men Type: BLOOD SPECIMENOrdering Facility: [facility] Address: [address] [place] [address] Performed By: #### Margaret JASSO, 98919-9, 91831-5, ####[facility] LABCLIA [id number] [address] [address] [place] Calcium [Mass/Vol] 10.3 mg/dL High 8.5-10.2 [facility] Comment on above: Order Comment: Speci men Type: BLOOD SPECIMENOrdering Facility: [facility] Address: [address] [place] [address] Performed By: #### Margaret JASSO, 31903-2, 09272-2, ####[facility] LABCLIA [id number] [place] [id number] [place] Chloride [Moles/Vol] 104 mmol/L Normal 98-107 [facility] Comment on above: Order Comment: Speci men Type: BLOOD SPECIMENOrdering Facility: [facility] Address: [address] [place], [place] [address] Performed By: #### Margaret JASSO, 96161-8, 44733-6, ####[facility] LABCLIA [id number] [facility] [address] [address] [place] CO2 [Moles/Vol] 20 mmol/L Low 22-30 [facility] Comment on above: Order Comment: Speci men Type: BLOOD SPECIMENOrdering Facility: [facility] Address: [address] [place] [id number] Performed By: #### Margaret JASSO, 60661-7, 48254-1, 03724-3 ####[facility] LABCLIA [id number] [address] [address] [place] Creatinine [Mass/Vol] 0.62 mg/dL Normal 0.58-0.96 [facility] Comment on above: Order Comment: Speci men Type: BLOOD SPECIMENOrdering Facility: [facility] Address: [address] [place] [address] Performed By: #### Margaret JASSO, 23181-1, 67541-3, ####[facility] LABIA [id number] [address] [address] [place] Creatinine and Glomerular filtration rate.predicted panel (S/P/Bld) 129 mL/min/1.73m??? Normal >=60 [facility] Comment on above: Order Comment: Speci men Type: BLOOD SPECIMENOrdering Facility: [facility] Address: [address] [place] [address] Result Comment: Emi mated Glomerular Filtration Rate (eGFR) is calculated using the 2020 CKD-EPI creatinine equation. This equation utilizes serum creatinine, sex, and age as parameters. The creatinine assay has traceable calibration to isotope dilution-mass spectrometry. Refer to KDIGO guidelines for clinical interpretation. In patients with unstable renal function, e.g. those with acute kidney injury, the eGFR may not accurately reflect actual GFR. Performed By: #### Margaret JASSO, 77648-4, 74729-7, ####[facility] LABCLIA [id number] [address] [address] [place] Glucose [Mass/Vol] 87 mg/dL Normal 74-99 [facility] Comment on above: Order Comment: Speci men Type: BLOOD SPECIMENOrdering Facility: [facility] Address: [address], [place] [address] Result Comment: The [place] Diabetes Association (ADA) provides guidance for cutoff values for fasting glucose and random glucose. The ADA defines fasting as no caloric intake for at least 8 hours. Fasting plasma glucose results between 100 to 125 mg/dL indicate increased risk for diabetes (prediabetes). Fasting plasma glucose results greater than or equal to 126 mg/dL meet the criteria for diagnosis of diabetes. In the absence of unequivocal hyperglycemia, results should be confirmed by repeat testing. In a patient with classic symptoms of hyperglycemia or hyperglycemic crisis, random plasma glucose results greater than or equal to 200 mg/dL meet the criteria for diagnosis of diabetes. Reference: Standards of Medical Care in Diabetes 2016, [place] Diabetes Association. Diabetes Care. 2016.39(Suppl 1). Performed By: #### Margaret JASSO, 81180-3, 20244-7, 45471-4 ####[facility] LABCLIA [id number] [place] [address] [place] Potassium [Moles/Vol] 4.2 mmol/L Normal 3.7-5.1 [facility] Comment on above: Order Comment: Speci men Type: BLOOD SPECIMENOrdering Facility: [facility] Address: [address] [place] [address] Performed By: #### Margaret JASSO, 66317-8, 88703-3, ####[facility] [id number] [place] [address] [place] Protein [Mass/Vol] 7.8 g/dL Normal 6.3-8.0 [facility] Comment on above: Order Comment: Speci men Type: BLOOD SPECIMENOrdering Facility: [facility] Address: [address] [place] [address] Performed By: #### Margaret JASSO, 55401-8, 81688-6, 36969-4 ####[facility] LABIA [id number] [place] [id number] [place] Sodium [Moles/Vol] 139 mmol/L Normal 136-144 [facility] Comment on above: Order Comment: Speci men Type: BLOOD SPECIMENOrdering Facility: [facility] Address: [address] [place] [address] Performed By: #### Margaret LOUISA, 09237-2, 56631-4, 56331-7 ####[facility] LABCLIA [id number] [address] [address] [place] Urea nitrogen [Mass/Vol] 11 mg/dL Normal 7-21 [facility] Comment on above: Order Comment: Speci men Type: BLOOD SPECIMENOrdering Facility: [facility] Address: [address] [place] [address] Performed By: #### Margaret LOUISA, 87229-7, 29670-8, 78951-6 ####[facility] [id number] [place] [address] [place] DHEA-S BLDon 08-07-2024 DHEA-S [Mass/Vol] 135.2 ug/dL Low 148.0-407.0 [facility] Comment on above: Order Comment: Speci men Type: BLOOD SPECIMENOrdering Facility: [facility] Address: [address] [place] [address] Result Comment: Refe rence ranges are age and gender specific. For additional information, reference range tables can be found in the laboratory test directory. The normal values are based on the following source: Dehydroepiandrosterone sulfate (DHEA S) [package insert V 17.0 Jordanian]. [facility], [place], [place]: September 2012. Performed By: #### Margaret LOUISA, 75185-4, 24656-6, 48323-4 ####[facility] LABCLIA [id number] [place] [id number] [place] FSH SerPl-aCncon 08-07-2024 Follitropin Qn 6.0 m[IU]/mL Normal See comment [facility] Comment on above: Order Comment: Speci men Type: BLOOD SPECIMENOrdering Facility: [facility] Address: [address] [place] [address] Result Comment: Refe rence range: Follicular: 3.5-12.5 mIU/mL Ovulation: 4.7-21.5 mIU/mL Luteal: 1.7-7.7 mIU/mL Postmenopausal: 25.8-134.8 mIU/mL Performed By: #### D LOUISA, 71754-7, 68122-7, 62936-1 ####[facility] LABIA [id number] [place] [id number] [place] Glucose p fast SerPl-mCncon 08-07-2024 Glucose post fast [Mass/Vol] 98 mg/dL Normal 74-99 [facility] Comment on above: Order Comment: Chavez vargas Type: BLOOD SPECIMENOrdering Facility: [facility] Address: [address] [place] [address] Result Comment: [place] Diabetes Association guidelines state that a diabetes mellitus diagnosis is preliminarily made when the fasting plasma glucose meets or exceeds 126 mg/dL. In the absence of unequivocal hyperglycemia, results should be confirmed with repeat testing. Patients are at increased risk for diabetes mellitus (prediabetes) when the fasting glucose is 100 to 125 mg/dL. Performed By: #### 1 558-6 ####[facility] [id number] [place] [address] [place] HYDROXYPROGESTERONE-17on 17-HYDROXYPROGESTERON E QUANTITATIVE BY HPLC-MS/MS, SERUM OR PLASMA 52.79 ng/dL Normal <=206.00 [facility] Comment on above: Order Comment: Chavez vargas Type: BLOOD SPECIMENOrdering Facility: [facility] Address: [address] [place] [address] Result Comment: INTE RPRETIVE INFORMATION for 17-Hydroxyprogesterone in females: Follicular 15 to 70 ng/dL Luteal 35 to 290 ng/dL REFERENCE INTERVAL: 17-Hydroxyprogesterone Qnt, HPLC-MS/MS Access complete set of age- and/or gender-specific reference intervals for this test in the [facility] Test Directory ([employer]). This test was developed and its performance characteristics determined by [facility]. It has not been cleared or approved by the [place] Food and Drug Administration. This test was performed in a CLIA certified laboratory and is intended for clinical purposes. Performed By: [facility] [address] [place] [address] Blow Off Worker: Silvio Louie MD, PhD [place] Number: [id number] Performed By: #### H PROG ####[facility] [id number] [place] [address] HbA1c (Bld)on 08-07-2024 Average glucose Estimated from glycated hemoglobin (Bld) [Mass/Vol] 123 mg/dL Normal [facility] Comment on above: Order Comment: Chavez vargas Type: BLOOD SPECIMENOrdering Facility: [facility] Address: [address] [place] [address] Result Comment: eAG: (Estimated average glucose) is a calculated value from HgbA1c and is automotive leasing sales representative of the average blood glucose level in the last 2-3 month period. Performed By: #### 5 5454-3 ####[facility] LABIA [id number] [place] [address] [place] HbA1c (Bld) [Mass fraction] 5.9 % High 4.3-5.6 [facility] Comment on above: Order Comment: Chavez vargas Type: BLOOD SPECIMENOrdering Facility: [facility] Address: [address] [place] [address] Result Comment: [place] Diabetes Association guidelines indicate that patients with HgbA1c in the range 5.7-6.4% are at increased risk for development of diabetes, and intervention by lifestyle modification may be beneficial. HgbA1c greater or equal to 6.5% is considered diagnostic of diabetes. Performed By: #### 5 5454-3 ####[facility] LABCLIA [id number] [place] [id number] [place] Insulin SerPl-aCncon 025 Insulin Qn 62.9 uU/mL High 2.6-24.9 [facility] Comment on above: Order Comment: Chavez vargas Type: BLOOD SPECIMENOrdering Facility: [facility] Address: [address] [place] [address] Performed By: #### 2 0448-7 ####[facility] LABCLIA [id number] [address] [place] LH SerPl-aCncon 08-07-2024 Lutropin Qn 12.0 m[IU]/mL Normal See comment [facility] Comment on above: Order Comment: Speci men Type: BLOOD SPECIMENOrdering Facility: [facility] Address: [address] [place] [address] Result Comment: Refe rence range: Follicular: 2.4-12.6 mIU/mL Midcycle: 14.0-95.6 mIU/mL Luteal: 1.0-11.4 mIU/mL [place]: 7.7-58.5 mIU/mL Performed By: #### D LOUISA, 76187-7, 58959-1, 72688-0 ####[facility] LABCLIA [id number] [address] [place] Progest SerPl-mCncon 025 Progesterone [Mass/Vol] ng/mL Normal See comment [facility] Comment on above: Order Comment: Speci men Type: BLOOD SPECIMENOrdering Facility: [facility] Address: [address] [place] [address] Result Comment: Mens trual Cycle Progesterone Reference Ranges: Follicular: <1.0 ng/mL Ovulation: <12.1 ng/mL Luteal: 1.8 to 23.9 ng/mL. Progesterone Reference Ranges vary by gestational period: First Trimester: 11.0 to 44.3 ng/mL Second Trimester: 25.4 to 83.3 ng/mL Third Trimester: 58.7 to 214 ng/mL Post menopausal Progesterone: <0.5 ng/mL Reference: 1. Progesterone (Progesterone III) [package insert V 1.0 [place]ian]. [facility], [place], [place]. November 2014. Performed By: #### 2 842-3, 2839-9, 2986-8, 3016-3 ####[facility] LABCLIA [id number] [place] [id number] [place] Prolactin SerPl-mCncon 08-07 Prolactin [Mass/Vol] 13.4 ng/mL Normal 4.4-33.8 [facility] Comment on above: Order Comment: Speci men Type: BLOOD SPECIMENOrdering Facility: [facility] Address: [address] [place] [address] Result Comment: Prol actin test is performed using the [facility] Electrochemiluminescence Immunoassay method. Results obtained with different methods or kits cannot be used interchangeably. Performed By: #### 2 842-3, 2839-9, 2986-8, 3016-3 ####[facility] LABCLIA [id number] [place] [address] [place] TSH SerPl-aCncon 08-07-2024 TSH Qn 0.908 m[IU]/L Normal 0.270-4.200 [facility] Comment on above: Order Comment: Speci men Type: BLOOD SPECIMENOrdering Facility: [facility] Address: [address] [place] [address] Result Comment: If t he patient is , TSH reference range varies by gestational period: First Trimester (weeks 9-12): 0.180-2.990 mIU/L Second Trimester: 0.110-3.980 mIU/L Third Trimester: 0.480-4.710 mIU/L Ray Vivar et al. A Practical Approach for the Verifications and Determination of Site- and Trimester-Specific Reference Intervals for Thyroid Function tests in . Thyroid, 2019:29:3:412-420. Ubaldo Mays, et al. 2017 Guidelines of the [place] Thyroid Association for the Diagnosis and Management of Thyroid Disease during and the . Thyroid, 2017:27:3:315-389. Performed By: #### 2 842-3, 2839-9, 2986-8, 3016-3 ####[facility] LABCLIA [id number] [place] [id number] [place] Testost SerPl-mCncon 025 Testosterone [Mass/Vol] 29 ng/dL Normal <40 [facility] Comment on above: Order Comment: Speci men Type: BLOOD SPECIMENOrdering Facility: [facility] Address: [address] [place] [address] [place] [address] Performed By: #### 2 842-3, 2839-9, 2986-8, 3016-3 ####[facility] LABCLIA [id number] [address] [place] Vit B12 SerPl-mCncon 025 Cobalamin (Vitamin B12) [Mass/Vol] 901 pg/mL Normal 232-1245 [facility] Comment on above: Order Comment: Speci men Type: BLOOD SPECIMENOrdering Facility: [facility] Address: [address] [place], [place] [address] [address] Performed By: #### 2 132-9 ####[facility] LABCLIA [id number] [address] [place] CNPJayna 07-[facility]-20[facility] SHAHEED JACKSON ([id number]) 4 F Date Time Provider Department 07/22/24 LIZA CAMARILLO HEMMADELINE During your visit today, we recorded the following information about you: Liza Camarillo DO 07/22/2024 1:51 PM Signed Can let her know iron levels are okay. CBC/Iron studies/Sed rate/CRP then OV in about 2 months. DO Jackie Joseph Melissa 07/22/2024 2:07 PM Signed Patient informed. She will call back when she has her work schedule to schedule appointments in 2 months. Lab - CBC/Iron studies/Sed rate/CRP OV week later with Staci Newman 08/03/2024 3:27 PM Signed Spoke with patient and scheduled lab and ov Staci Teixeira Allergies As of Date: 07/22/2024 (No Known Allergies) Date Reviewed: 2024 Reviewed by: Jose G Taylor APRN.CRITICAL CARE EDUCATOR - Fully Assessed Reason for Visit: Results [95] Prescriptions as of 08/03/2024 - PROZAC 20 mg capsule Take 40 mg by mouth once daily. - hydrOXYzine HCl (ATARAX) 25 mg tablet Take 25 mg by mouth three times a day as needed. - topiramate (TOPAMAX) 100 mg tablet Take 1 tablet by mouth daily at bedtime. - buPROPion XL (WELLBUTRIN XL) 300 mg 24 hr tablet Take 1 tablet by mouth once daily. Per Psych, Tranquility - cholecalciferol, Vitamin D3, (VITAMIN D3) 1,250 mcg (50,000 unit) cap capsule Take 1 capsule by mouth one time a week. - aspirin/acetaminophen/caff eine (EXCEDRIN MIGRAINE ORAL) Take by mouth as needed. Drug free headache Care - peg Cadena jensen, r hamn ([facility] PROBIOTIC ORAL) Take 1 capsule by mouth once daily. - Lacto no.76/Bifido/FOS/larch (WOMEN'S PROBIOTIC ORAL) Take 1 capsule by mouth once daily. - mv-min/iron/folic/calcium/ vitK (WOMEN'S MULTIVITAMIN ORAL) Take 1 tablet by mouth once daily. - propranolol (INDERAL) 10 mg tablet Take 10 mg by mouth. As needed - flaxseed oil (OMEGA 3 ORAL) Take 2 capsules by mouth once daily. - CPAP/BIPAP/OTHER autoCPAP 8-10 cmH2O [facility] - acetaminophen 325 mg cap Take by mouth as needed. - cetirizine (ZYRTEC) 10 mg tablet Take 1 tablet by mouth once daily. - Ibuprofen 200 mg cap Take by mouth every 4 hours as needed. FOR PAIN. 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] 09/30/2018 Class 2 obesity due to excess calories without * Pseudotumor cerebri [G93.2] 07/04/2021 Major depressive disorder with single episode [*05/02/2022 PANCHO (generalized anxiety disorder) [F41.1] 05/02/2022 Encounter for screening for diabetes mellitus [*05/02/2022 Elevated hemoglobin A1c [R73.09] 05/03/2022 Hyperlipidemia, mixed [E78.2] 05/03/2022 Hypercalcemia [E83.52] 05/03/2022 Elevated LFTs [R79.89] 05/03/2022 Thrombocytosis [D75.839] 05/03/2022 WHITNEY (nonalcoholic steatohepatitis) [K75.81] 05/25/2024 Vitamin D deficiency [E55.9] 05/25/2024 JUAN M (obstructive sleep apnea) [G47.33] 05/25/2024 Medication management [Z79.899] 05/25/2024 Elevated BP without diagnosis of hypertension [*06/24/2024 Encounter Status:Closed by STACI TEIXEIRA on 08/03/24 Normal [facility] C. trachomatis+N. gonorrhoea e DNA PARI+probe Ql (Unsp spec)on 2024 C. trachomatis rRNA PARI+probe Ql (Unsp spec) Not detected Normal Not detected [facility] Comment on above: Order Comment: Speci men Type: SWABOrdering Facility: [facility] Address: [address] [place] [address] Performed By: #### 3 6902-5, TRVAMP ####[facility] LABCLIA [id number] [address] OF [facility] N. gonorrhoeae rRNA PARI+probe Ql (Unsp spec) Not detected Normal Not detected [facility] Comment on above: Order Comment: Speci men Type: SWABOrdering Facility: [facility] Address: [address] [place] [address] Performed By: #### 3 6902-5, TRVAMP ####[facility] LABCLIA [id number] [address] STATES OF [facility] CNOVon 2024 CNOV Office Visit (OBGYWM ) -- SHAHEED JACKSON ([id number]) 4 F Date Time Provider Department 07/21/24 3:15 PM JOSE G TAYLOR OBGYWM During your visit today, we recorded the following information about you: Blood pressure Weight Height Last Period 130/78 120.7 kg 1.68 m 06/26/24 Jose G Taylor APRN.CRITICAL CARE EDUCATOR 2024 3:54 PM Signed Patient declined wireless development managerKate David is a 24 year old who presents for an annual gynecologic exam without complaints. Not currently trying for at this time. Still get period: Yes, 06/26/2024 cycles 29-30 days with 5-7 days flow Bleeding amount bothersome: No Bleeding between periods: No Period symptoms: Acne; Breast tenderness; Cramps; Mood change; Pelvic pain control frequency: Never HPV vaccine: No; HPV:N/A Last pap smear: never Last mammogram: never OB History Gravida1 Para1 Term1 Preterm0 AB0 Living1 SAB0 IAB0 Ectopic0 Multiple0 Live Births1 Pediatric Neuropsychologist History LMP: 06/26/2024, Having periods Age at Menarche: 12 Age at First : Age at Menopause: Pediatric Neuropsychologist History Comments: Sexual Activity: Yes; Male Contraception: Condom Menstrual Tracking History Flowsheet Row Office Visit from 2024 in OB/Gynecology Period Cycle (Days) 6 Period Duration (Days) 6 Menstrual Flow Moderate PAST MEDICAL HISTORY Diagnosis Date Attention deficit hyperactivity disorder (ADHD), combined type 12/14/2014 Class 2 obesity due to excess calories without serious comorbidity with body mass index (BMI) of 37.0 to 37.9 in adult Elevated hemoglobin A1c 05/03/2022 PANCHO (generalized anxiety disorder) 05/02/2022 Hyperlipidemia, mixed 05/03/2022 Major depressive disorder with single episode 05/02/2022 Oppositional defiant disorder 11/07/2007 JUAN M (obstructive sleep apnea) 05/25/2024 Seeing [facility] Sleep Med. 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 Pseudotumor cerebri 07/04/[address] Andrew Seasonal allergies Thrombocytosis 05/03/2022 Chronic since 2003 (500-550) Vitamin D deficiency 05/25/2024 PAST SURGICAL HISTORY Procedure Laterality Date SECTION HX 05/02/2021 NONE PAST SURGICAL HISTORY OF 07/20/2024 [place] teeth [place] FAMILY HISTORY Problem Relation Age of Onset other (Other) Mother restless leg Lipids Father Diabetes Maternal Grandmother Hypertension Maternal Grandmother other (sleep apnea) Maternal Grandmother Hypertension Maternal Grandfather other (sleep apnea) Maternal Grandfather Skin Cancer Maternal Grandfather Colon Cancer Paternal Grandmother Lipids Paternal Grandfather Diabetes Paternal Grandfather SOCIAL HISTORY Social History Tobacco Use Smoking status: Never Passive exposure: Never Smokeless tobacco: Never Vaping Use Vaping status: Never Used Substance Use Topics Alcohol use: No Drug use: No REVIEW OF SYSTEMS Abdomen: No abdominal pain, nausea, vomiting, diarrhea, or constipation. No bloating, early satiety, indigestion, or increased flatulence. Bladder: No dysuria, gross hematuria, urinary frequency, urinary urgency, or incontinence. Breast: No breast lumps, nipple d/c, overlying skin changes, redness or skin retraction. Allergies and current medication updated:Yes SENSITIVE EXAM: The sensitive examination was discussed with the Patient or Patient's Authorized Vocational Teacher. As applicable, any other physician, advance practice provider, medical student, or other health professional student that will be observing or involved in the sensitive examination for educational or training purposes was discussed with the Patient or Authorized Vocational Teacher. The Patient or Authorized Vocational Teacher has agreed to proceed with the sensitive examination. (Sensitive examination includes inspection and/or palpation of the breasts, pelvis, prostate and anorectal regions). EXAM: BP 130/78 Ht 5' 6.142 (1.68m) Wt 266 lb (120.7kg) LMP 06/26/2024 BMI 42.75 kg/(m2). GENERAL: pleasant, female in no apparent distress HEENT: Normocephalic, atraumatic, mucus membranes moist, and no lesions NECK: Supple, full range of motion, no adenopathy, and thyroid normal DERMATOLOGY: Normal, without lesions, non-icteric, and non-hirsute BREAST: soft, non-tender, symmetric, no dominant mass, normal nipple-areolar complex, no lymphadenopathy, and no nipple discharge CHEST: Normal inspiratory effort ABDOMEN: soft, non-tender, and no masses PELVIC: external genitalia normal, normal Bartholin's glands, urethra, Perris's glands, no vulvar lesions, no cervical lesions, good vaginal support, physiologic discharge present, normal appearing perineal body and perianal region + healing folliculitis/scarring noted to mons pubis BIMANUAL: uterus normal size, shape and consistency, no adnexal masses, and non-tender Limited due to habitus. RECTOVAGINAL: deferred. NEURO: alert (more content not included)... Normal [facility] CNOVSPon 2024 CNOVSP Visit (SP) Office (H EMAWS) -- SHAHEED JACKSON ([id number]) 4 F Date Time Provider Department 07/21/24 1:00 PM LIZA CAMARILLO HEMMADELINE During your visit today, we recorded the following information about you: Temperature Pulse Blood pressure Weight 96.7 degrees 101/minute 126/78 122.2 kg Height 1.68 m Liza Camarillo DO 2024 1:53 PM Signed Patient referred by Soto Palacios APRN.CNP for leukocytosis and thrombocytosis. HPI: The patient is a 24-year-old female with past medical history as outlined below. Has a 2-year history of leukocytosis/neutrophilia and thrombocytosis. Has not previously had iron studies. Regular menses. Had HMB before her daughter's about 3 years ago. 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 Less heavy over the last year. Didn't breast feed. Recently had an IV vitamin and mineral infusion--delayed menses about 2 weeks. Not a blood donor. Very consistent with CPAP. Has been using nearly a year. Topomax helping with frequent HAs. Recently saw neurology for this. Had MRI scheduled. Tries to take Excedrin sparingly. Works at [employer] in [place]. All four wisdom teeth extracted yesterday. Needed for about a year--no symptoms. Has not previously taken oral iron. PAST MEDICAL HISTORY Diagnosis Date Attention deficit hyperactivity disorder (ADHD), combined type 12/14/2014 Class 2 obesity due to excess calories without serious comorbidity with body mass index (BMI) of 37.0 to 37.9 in adult Elevated hemoglobin A1c 05/03/2022 PANCHO (generalized anxiety disorder) 05/02/2022 Hyperlipidemia, mixed 05/03/2022 Major depressive disorder with single episode 05/02/2022 Oppositional defiant disorder 11/07/2007 JUAN M (obstructive sleep apnea) 05/25/2024 Seeing [facility] Sleep Med. 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 Pseudotumor cerebri 07/04/[address] Andrew Seasonal allergies Thrombocytosis 05/03/2022 Chronic since 2003 (500-550) Vitamin D deficiency 05/25/2024 PAST SURGICAL HISTORY Procedure Laterality Date SECTION HX 05/02/2021 NONE Cholecalciferol, Vitamin D3, (VITAMIN D-3) 50 mcg (2,000 unit) cap Take 2 capsules by mouth one time a week. On a different day then the 50,000 international unit(s) capsule PROZAC 20 mg capsule Take 20 mg by mouth once daily. hydrOXYzine HCl (ATARAX) 25 mg tablet Take 25 mg by mouth three times a day. topiramate (TOPAMAX) 100 mg tablet Take 1 tablet by mouth daily at bedtime. buPROPion XL (WELLBUTRIN XL) 300 mg 24 hr tablet Take 1 tablet by mouth once daily. Per Psych, Tranquility cholecalciferol, Vitamin D3, (VITAMIN D3) 1,250 mcg (50,000 unit) cap capsule Take 1 capsule by mouth one time a week. aspirin/acetaminophen/caff eine (EXCEDRIN MIGRAINE ORAL) Drug free headache Care peg Cadena jensenr hamn ([facility] VAGIN[facility] PROBIOTIC ORAL) Lacto no.76/Bifido/FOS/larch (WOMEN'S PROBIOTIC ORAL) mv-min/iron/folic/calcium/ vitK (WOMEN'S MULTIVITAMIN ORAL) propranolol (INDERAL) 10 mg tablet Take 10 mg by mouth. As needed flaxseed oil (OMEGA 3 ORAL) Take by mouth as directed. CPAP/BIPAP/OTHER autoCPAP 8-10 cmH2O [facility] acetaminophen 325 mg cap Take by mouth. cetirizine (ZYRTEC) 10 mg tablet Take 1 tablet by mouth once daily. Ibuprofen 200 mg cap Take by mouth every 4 hours as needed. FOR PAIN. ALLERGIES No Known Allergies Social History Tobacco Use Smoking status: Never Passive exposure: Never Smokeless tobacco: Never Vaping Use Vaping status: Never Used Substance Use Topics Alcohol use: No Drug use: No FAMILY HISTORY Problem Relation Age of Onset other (Other) Mother restless leg Lipids Father Diabetes Maternal Grandmother Hypertension Maternal Grandmother other (sleep apnea) Maternal Grandmother Hypertension Maternal Grandfather other (sleep apnea) Maternal Grandfather Colon Cancer Paternal Grandmother Lipids Paternal Grandfather Diabetes Paternal Grandfather REVIEW OF SYSTEMS: Constitutional: No episodes of fever and night sweats. Neuro: No vertigo, dizziness and imbalance. No symptoms of neuropathy. HEENT: No recent change in voice, vision or hearing. Resp: No cough, wheeze and hemoptysis. No shortness of breath at rest. No NGUYEN. CVS: No exertional chest pain, PND, orthopnea and LE edema. GI: No reflux, n/v, change in bowel habits (alternating diarrhea and constipation) or abdominal pain. : No dysuria or gross hematuria. Endo: No hot flashes. Musculoskeletal: No bone, back, joint and muscular pain. Derm: No current rash. Heme: No unusual bleeding and unexplained bruising. Psych: Normal mood. PHYSICAL EXAM: Vitals: Blood pressure 126/78, pulse 101, temperature (!) 35.9 ?C (96.7 ?F), temperature source Temporal, height 168 cm (5' 6.14), weight 122.2 kg (269 lb 8 oz), last menstrual period 06/26/2024, SpO2 (more content not included)... Normal [facility] Ferritin SerPl-mCncon 2024 Ferritin [Mass/Vol] 62.3 ng/mL Normal 14.7-205.1 [facility] Comment on above: Order Comment: Speci men Type: BLOOD SPECIMENOrdering Facility: [facility] Address: [address] [place] [address] Performed By: #### 5 0190-8, 6-4 ####[facility] LABCLIA [id number] [place] [address] [place] Iron and Iron binding capaci ty panelon 2024 Iron [Mass/Vol] 78 ug/dL Normal 41-186 [facility] Comment on above: Order Comment: Speci men Type: BLOOD SPECIMENOrdering Facility: [facility] Address: [address] [place] [address] Performed By: #### 5 0190-8, 2275-4 ####[facility] LABIA [id number] [address] STATES OF [facility] Iron binding capacity [Mass/Vol] 327 ug/dL Normal 232-386 [facility] Comment on above: Order Comment: Speci men Type: BLOOD SPECIMENOrdering Facility: [facility] Address: [address] [place] [address] Performed By: #### 5 0190-8, 2275-4 ####[facility] LABIA [id number] [address] [place] Iron/TIBC [Molar ratio] 23.9 % Normal 15.0-57.0 [facility] Comment on above: Order Comment: Speci men Type: BLOOD SPECIMENOrdering Facility: [facility] Address: [address] [place] [address] Performed By: #### 5 0190-8, 2275-4 ####[facility] LABIA [id number] [place] [id number] [place] MR Brain WO and W contrast I Von 2024 * * *Final Report* * * DATE OF EXAM: 2024 3:10PM [facility] 0295 - MRI BRAIN WO/W IVCON / PROCEDURE REASON: multiple diagnoses * * * * Physician Interpretation * * * * EXAMINATION: MRI BRAIN WO/W IVCON, MRV BRAIN WO/W IVCON, MRA BRAIN WO IVCON HISTORY: Positional headache New daily persistent headache TECHNIQUE: Routine contrast MRI protocol including diffusion and gradient echo images. Intracranial 3D zurq-wn-ajepid MRA and MRV with 2D multiplanar and 3D maximum intensity projections calculated on the imaging workstation under physician supervision. MQ: MRBBWO_2 COMPARISON: Brain MRI and MRV 12/30/2022. RESULT: BRAIN: Acute Change: There is no evidence of restricted diffusion to suggest an acute infarct. Hemorrhage: No evidence of prior parenchymal hemorrhage on the gradient echo images. Mass Lesion/ Mass Effect: No evidence of an intracranial mass or extra-axial fluid collection. No significant mass effect. There is no abnormal enhancement. No midline shift or herniation. Chronic Change: The white matter is within normal limits of signal intensity for age. Parenchyma: No significant volume loss for age. The brain parenchyma is otherwise within normal limits of signal intensity and morphology. Ventricles: Normal caliber and morphology. Skull Base: Hypothalamic and pituitary region are grossly normal. Craniocervical junction is normal. No significant marrow replacement process. Vasculature: Major intracranial arterial structures, and dural venous sinuses show typical flow void, suggesting patency by spin echo criteria. Other: There is prominence of the adenoids, which is not an uncommon finding in a patient of this age. There is a partial left mastoid effusion. The visualized paranasal sinuses and mastoid air cells are otherwise clear. The orbits and extracranial soft tissues are unremarkable. INTRACRANIAL MRA: No intracranial arterial stenosis, aneurysm, or other lesion is identified. An anterior communicating artery is present. The bilateral posterior communicating arteries are within normal limits. The intracranial internal carotid arteries and the proximal anterior, middle and posterior cerebral arteries appear normal. The left vertebral artery appears dominant. The intracranial vertebral arteries and the basilar artery appear normal. The visualized predominantly proximal segments of the PICAs, AICAs and SCAs appear normal. INTRACRANIAL MRV: The right transverse sinus is hypoplastic. There is otherwise normal flow-related enhancement in the superior sagittal, bilateral transverse and bilateral sigmoid sinuses as well as the proximal internal jugular veins. There is normal flow-related enhancement in the internal cerebral veins, vein of Emre and straight sinus. There is no evidence of venous sinus thrombosis. DIVISION OF RADIOLOGY Provider, [facility] Grace Kaylie - 2024 * * *Final Report* * * DATE OF EXAM: 2024 3:10PM [facility] 0295 - MRI BRAIN WO/W IVCON / PROCEDURE REASON: multiple diagnoses * * * * Physician Interpretation * * * * EXAMINATION: MRI BRAIN WO/W IVCON, MRV BRAIN WO/W IVCON, MRA BRAIN WO IVCON HISTORY: Positional headache New daily persistent headache TECHNIQUE: Routine contrast MRI protocol including diffusion and gradient echo images. Intracranial 3D jueg-vr-lpjors MRA and MRV with 2D multiplanar and 3D maximum intensity projections calculated on the imaging workstation under physician supervision. MQ: MRBBWO_2 COMPARISON: Brain MRI and MRV 12/30/2022. RESULT: BRAIN: Acute Change: There is no evidence of restricted diffusion to suggest an acute infarct. Hemorrhage: No evidence of prior parenchymal hemorrhage on the gradient echo images. Mass Lesion/ Mass Effect: No evidence of an intracranial mass or extra-axial fluid collection. No significant mass effect. There is no abnormal enhancement. No midline shift or herniation. Chronic Change: The white matter is within normal limits of signal intensity for age. Parenchyma: No significant volume loss for age. The brain parenchyma is otherwise within normal limits of signal intensity and morphology. Ventricles: Normal caliber and morphology. Skull Base: Hypothalamic and pituitary region are grossly normal. Craniocervical junction is normal. No significant marrow replacement process. Vasculature: Major intracranial arterial structures, and dural venous sinuses show typical flow void, suggesting patency by spin echo criteria. Other: There is prominence of the adenoids, which is not an uncommon finding in a patient of this age. There is a partial left mastoid effusion. The visualized paranasal sinuses and mastoid air cells are otherwise clear. The orbits and extracranial soft tissues are unremarkable. INTRACRANIAL MRA: No intracranial arterial stenosis, aneurysm, or other lesion is identified. An anterior communicating artery is present. The bilateral posterior communicating arteries are within normal limits. The intracranial internal carotid arteries and the proximal anterior, middle and posterior cerebral arteries appear normal. The left vertebral artery appears dominant. The intracranial vertebral arteries and the basilar artery appear normal. The visualized predominantly proximal segments of the PICAs, AICAs and SCAs appear normal. INTRACRANIAL MRV: The right transverse sinus is hypoplastic. There is otherwise normal flow-related enhancement in the superior sagittal, bilateral transverse and bilateral sigmoid sinuses as well as the proximal internal jugular veins. There is normal flow-related enhancement in the internal cerebral veins, vein of Emre and straight sinus. There is no evidence of venous sinus thrombosis. IMPRESSION IMPRESSION: No acute findings. No acute infarction, intracranial hemorrhage, intracranial mass lesion or abnormal intracranial enhancement. No evidence of hemodynamically significant stenosis, intraluminal filling defect, abrupt vessel occlusion, aneurysm or vascular malformation in the intracranial arterial vasculature. No evidence of dural venous sinus thrombosis. Business Information Analyst: [employer] Transcribe Date/Time: 2024 3:18P Dictated by : KASANDRA HASSAN MD This examination was interpreted and the report reviewed and electronically signed by: KASANDRA HASSAN MD on 2024 3:41PM [facility] MRA BRAIN WO IVCONon 025 MRA BRAIN WO IVCON * * *Final Report* * * DATE OF EXAM: 2024 3:10PM [facility] 0272 - MRA BRAIN WO IVCON / PROCEDURE REASON: multiple diagnoses * * * * Physician Interpretation * * * * EXAMINATION: MRI BRAIN WO/W IVCON, MRV BRAIN WO/W IVCON, MRA BRAIN WO IVCON HISTORY: Positional headache New daily persistent headache TECHNIQUE: Routine contrast MRI protocol including diffusion and gradient echo images. Intracranial 3D pnfu-ft-dtdufe MRA and MRV with 2D multiplanar and 3D maximum intensity projections calculated on the imaging workstation under physician supervision. MQ: MRBBWO_2 COMPARISON: Brain MRI and MRV 12/30/2022. RESULT: BRAIN: Acute Change: There is no evidence of restricted diffusion to suggest an acute infarct. Hemorrhage: No evidence of prior parenchymal hemorrhage on the gradient echo images. Mass Lesion/ Mass Effect: No evidence of an intracranial mass or extra-axial fluid collection. No significant mass effect. There is no abnormal enhancement. No midline shift or herniation. Chronic Change: The white matter is within normal limits of signal intensity for age. Parenchyma: No significant volume loss for age. The brain parenchyma is otherwise within normal limits of signal intensity and morphology. Ventricles: Normal caliber and morphology. Skull Base: Hypothalamic and pituitary region are grossly normal. Craniocervical junction is normal. No significant marrow replacement process. Vasculature: Major intracranial arterial structures, and dural venous sinuses show typical flow void, suggesting patency by spin echo criteria. Other: There is prominence of the adenoids, which is not an uncommon finding in a patient of this age. There is a partial left mastoid effusion. The visualized paranasal sinuses and mastoid air cells are otherwise clear. The orbits and extracranial soft tissues are unremarkable. INTRACRANIAL MRA: No intracranial arterial stenosis, aneurysm, or other lesion is identified. An anterior communicating artery is present. The bilateral posterior communicating arteries are within normal limits. The intracranial internal carotid arteries and the proximal anterior, middle and posterior cerebral arteries appear normal. The left vertebral artery appears dominant. The intracranial vertebral arteries and the basilar artery appear normal. The visualized predominantly proximal segments of the PICAs, AICAs and SCAs appear normal. INTRACRANIAL MRV: The right transverse sinus is hypoplastic. There is otherwise normal flow-related enhancement in the superior sagittal, bilateral transverse and bilateral sigmoid sinuses as well as the proximal internal jugular veins. There is normal flow-related enhancement in the internal cerebral veins, vein of Emre and straight sinus. There is no evidence of venous sinus thrombosis. IMPRESSION: No acute findings. No acute infarction, intracranial hemorrhage, intracranial mass lesion or abnormal intracranial enhancement. No evidence of hemodynamically significant stenosis, intraluminal filling defect, abrupt vessel occlusion, aneurysm or vascular malformation in the intracranial arterial vasculature. No evidence of dural venous sinus thrombosis. Business Information Analyst: [facility] Transcribe Date/Time: 2024 3:18P Dictated by : KASANDRA HASSAN MD This examination was interpreted and the report reviewed and electronically signed by: KASANDRA HASSAN MD on 2024 3:41PM EST [id number] Normal [facility] MRA Head veins WO and W cont rast Tabby 2024 * * *Final Report* * * DATE OF EXAM: 2024 3:10PM [facility] 0336 - MRV BRAIN WO/W IVCON / PROCEDURE REASON: multiple diagnoses * * * * Physician Interpretation * * * * EXAMINATION: MRI BRAIN WO/W IVCON, MRV BRAIN WO/W IVCON, MRA BRAIN WO IVCON HISTORY: Positional headache New daily persistent headache TECHNIQUE: Routine contrast MRI protocol including diffusion and gradient echo images. Intracranial 3D yghr-ky-kwugzt MRA and MRV with 2D multiplanar and 3D maximum intensity projections calculated on the imaging workstation under physician supervision. MQ: MRBBWO_2 COMPARISON: Brain MRI and MRV 12/30/2022. RESULT: BRAIN: Acute Change: There is no evidence of restricted diffusion to suggest an acute infarct. Hemorrhage: No evidence of prior parenchymal hemorrhage on the gradient echo images. Mass Lesion/ Mass Effect: No evidence of an intracranial mass or extra-axial fluid collection. No significant mass effect. There is no abnormal enhancement. No midline shift or herniation. Chronic Change: The white matter is within normal limits of signal intensity for age. Parenchyma: No significant volume loss for age. The brain parenchyma is otherwise within normal limits of signal intensity and morphology. Ventricles: Normal caliber and morphology. Skull Base: Hypothalamic and pituitary region are grossly normal. Craniocervical junction is normal. No significant marrow replacement process. Vasculature: Major intracranial arterial structures, and dural venous sinuses show typical flow void, suggesting patency by spin echo criteria. Other: There is prominence of the adenoids, which is not an uncommon finding in a patient of this age. There is a partial left mastoid effusion. The visualized paranasal sinuses and mastoid air cells are otherwise clear. The orbits and extracranial soft tissues are unremarkable. INTRACRANIAL MRA: No intracranial arterial stenosis, aneurysm, or other lesion is identified. An anterior communicating artery is present. The bilateral posterior communicating arteries are within normal limits. The intracranial internal carotid arteries and the proximal anterior, middle and posterior cerebral arteries appear normal. The left vertebral artery appears dominant. The intracranial vertebral arteries and the basilar artery appear normal. The visualized predominantly proximal segments of the PICAs, AICAs and SCAs appear normal. INTRACRANIAL MRV: The right transverse sinus is hypoplastic. There is otherwise normal flow-related enhancement in the superior sagittal, bilateral transverse and bilateral sigmoid sinuses as well as the proximal internal jugular veins. There is normal flow-related enhancement in the internal cerebral veins, vein of Emre and straight sinus. There is no evidence of venous sinus thrombosis. DIVISION OF RADIOLOGY Provider, [facility] - 2024 * * *Final Report* * * DATE OF EXAM: 2024 3:10PM [facility] 0336 - MRV BRAIN WO/W IVCON / PROCEDURE REASON: multiple diagnoses * * * * Physician Interpretation * * * * EXAMINATION: MRI BRAIN WO/W IVCON, MRV BRAIN WO/W IVCON, MRA BRAIN WO IVCON HISTORY: Positional headache New daily persistent headache TECHNIQUE: Routine contrast MRI protocol including diffusion and gradient echo images. Intracranial 3D oobc-to-qheenm MRA and MRV with 2D multiplanar and 3D maximum intensity projections calculated on the imaging workstation under physician supervision. MQ: MRBBWO_2 COMPARISON: Brain MRI and MRV 12/30/2022. RESULT: BRAIN: Acute Change: There is no evidence of restricted diffusion to suggest an acute infarct. Hemorrhage: No evidence of prior parenchymal hemorrhage on the gradient echo images. Mass Lesion/ Mass Effect: No evidence of an intracranial mass or extra-axial fluid collection. No significant mass effect. There is no abnormal enhancement. No midline shift or herniation. Chronic Change: The white matter is within normal limits of signal intensity for age. Parenchyma: No significant volume loss for age. The brain parenchyma is otherwise within normal limits of signal intensity and morphology. Ventricles: Normal caliber and morphology. Skull Base: Hypothalamic and pituitary region are grossly normal. Craniocervical junction is normal. No significant marrow replacement process. Vasculature: Major intracranial arterial structures, and dural venous sinuses show typical flow void, suggesting patency by spin echo criteria. Other: There is prominence of the adenoids, which is not an uncommon finding in a patient of this age. There is a partial left mastoid effusion. The visualized paranasal sinuses and mastoid air cells are otherwise clear. The orbits and extracranial soft tissues are unremarkable. INTRACRANIAL MRA: No intracranial arterial stenosis, aneurysm, or other lesion is identified. An anterior communicating artery is present. The bilateral posterior communicating arteries are within normal limits. The intracranial internal carotid arteries and the proximal anterior, middle and posterior cerebral arteries appear normal. The left vertebral artery appears dominant. The intracranial vertebral arteries and the basilar artery appear normal. The visualized predominantly proximal segments of the PICAs, AICAs and SCAs appear normal. INTRACRANIAL MRV: The right transverse sinus is hypoplastic. There is otherwise normal flow-related enhancement in the superior sagittal, bilateral transverse and bilateral sigmoid sinuses as well as the proximal internal jugular veins. There is normal flow-related enhancement in the internal cerebral veins, vein of Emre and straight sinus. There is no evidence of venous sinus thrombosis. IMPRESSION IMPRESSION: No acute findings. No acute infarction, intracranial hemorrhage, intracranial mass lesion or abnormal intracranial enhancement. No evidence of hemodynamically significant stenosis, intraluminal filling defect, abrupt vessel occlusion, aneurysm or vascular malformation in the intracranial arterial vasculature. No evidence of dural venous sinus thrombosis. Business Information Analyst: [facility] Transcribe Date/Time: 2024 3:18P Dictated by : KASANDRA HASSAN MD This examination was interpreted and the report reviewed and electronically signed by: KASANDRA HASSAN MD on 2024 3:41PM EST [facility] MRA Head vessels WO contrast on 2024 * * *Final Report* * * DATE OF EXAM: 2024 3:10PM [facility] 0272 - MRA BRAIN WO IVCON / PROCEDURE REASON: multiple diagnoses * * * * Physician Interpretation * * * * EXAMINATION: MRI BRAIN WO/W IVCON, MRV BRAIN WO/W IVCON, MRA BRAIN WO IVCON HISTORY: Positional headache New daily persistent headache TECHNIQUE: Routine contrast MRI protocol including diffusion and gradient echo images. Intracranial 3D oujj-ky-kidumj MRA and MRV with 2D multiplanar and 3D maximum intensity projections calculated on the imaging workstation under physician supervision. MQ: MRBBWO_2 COMPARISON: Brain MRI and MRV 12/30/2022. RESULT: BRAIN: Acute Change: There is no evidence of restricted diffusion to suggest an acute infarct. Hemorrhage: No evidence of prior parenchymal hemorrhage on the gradient echo images. Mass Lesion/ Mass Effect: No evidence of an intracranial mass or extra-axial fluid collection. No significant mass effect. There is no abnormal enhancement. No midline shift or herniation. Chronic Change: The white matter is within normal limits of signal intensity for age. Parenchyma: No significant volume loss for age. The brain parenchyma is otherwise within normal limits of signal intensity and morphology. Ventricles: Normal caliber and morphology. Skull Base: Hypothalamic and pituitary region are grossly normal. Craniocervical junction is normal. No significant marrow replacement process. Vasculature: Major intracranial arterial structures, and dural venous sinuses show typical flow void, suggesting patency by spin echo criteria. Other: There is prominence of the adenoids, which is not an uncommon finding in a patient of this age. There is a partial left mastoid effusion. The visualized paranasal sinuses and mastoid air cells are otherwise clear. The orbits and extracranial soft tissues are unremarkable. INTRACRANIAL MRA: No intracranial arterial stenosis, aneurysm, or other lesion is identified. An anterior communicating artery is present. The bilateral posterior communicating arteries are within normal limits. The intracranial internal carotid arteries and the proximal anterior, middle and posterior cerebral arteries appear normal. The left vertebral artery appears dominant. The intracranial vertebral arteries and the basilar artery appear normal. The visualized predominantly proximal segments of the PICAs, AICAs and SCAs appear normal. INTRACRANIAL MRV: The right transverse sinus is hypoplastic. There is otherwise normal flow-related enhancement in the superior sagittal, bilateral transverse and bilateral sigmoid sinuses as well as the proximal internal jugular veins. There is normal flow-related enhancement in the internal cerebral veins, vein of Emre and straight sinus. There is no evidence of venous sinus thrombosis. DIVISION OF RADIOLOGY Provider, [facility] - 2024 * * *Final Report* * * DATE OF EXAM: 2024 3:10PM [facility] 0272 - MRA BRAIN WO IVCON / PROCEDURE REASON: multiple diagnoses * * * * Physician Interpretation * * * * EXAMINATION: MRI BRAIN WO/W IVCON, MRV BRAIN WO/W IVCON, MRA BRAIN WO IVCON HISTORY: Positional headache New daily persistent headache TECHNIQUE: Routine contrast MRI protocol including diffusion and gradient echo images. Intracranial 3D yxjj-ui-eozidm MRA and MRV with 2D multiplanar and 3D maximum intensity projections calculated on the imaging workstation under physician supervision. MQ: MRBBWO_2 COMPARISON: Brain MRI and MRV 12/30/2022. RESULT: BRAIN: Acute Change: There is no evidence of restricted diffusion to suggest an acute infarct. Hemorrhage: No evidence of prior parenchymal hemorrhage on the gradient echo images. Mass Lesion/ Mass Effect: No evidence of an intracranial mass or extra-axial fluid collection. No significant mass effect. There is no abnormal enhancement. No midline shift or herniation. Chronic Change: The white matter is within normal limits of signal intensity for age. Parenchyma: No significant volume loss for age. The brain parenchyma is otherwise within normal limits of signal intensity and morphology. Ventricles: Normal caliber and morphology. Skull Base: Hypothalamic and pituitary region are grossly normal. Craniocervical junction is normal. No significant marrow replacement process. Vasculature: Major intracranial arterial structures, and dural venous sinuses show typical flow void, suggesting patency by spin echo criteria. Other: There is prominence of the adenoids, which is not an uncommon finding in a patient of this age. There is a partial left mastoid effusion. The visualized paranasal sinuses and mastoid air cells are otherwise clear. The orbits and extracranial soft tissues are unremarkable. INTRACRANIAL MRA: No intracranial arterial stenosis, aneurysm, or other lesion is identified. An anterior communicating artery is present. The bilateral posterior communicating arteries are within normal limits. The intracranial internal carotid arteries and the proximal anterior, middle and posterior cerebral arteries appear normal. The left vertebral artery appears dominant. The intracranial vertebral arteries and the basilar artery appear normal. The visualized predominantly proximal segments of the PICAs, AICAs and SCAs appear normal. INTRACRANIAL MRV: The right transverse sinus is hypoplastic. There is otherwise normal flow-related enhancement in the superior sagittal, bilateral transverse and bilateral sigmoid sinuses as well as the proximal internal jugular veins. There is normal flow-related enhancement in the internal cerebral veins, vein of Emre and straight sinus. There is no evidence of venous sinus thrombosis. IMPRESSION IMPRESSION: No acute findings. No acute infarction, intracranial hemorrhage, intracranial mass lesion or abnormal intracranial enhancement. No evidence of hemodynamically significant stenosis, intraluminal filling defect, abrupt vessel occlusion, aneurysm or vascular malformation in the intracranial arterial vasculature. No evidence of dural venous sinus thrombosis. Business Information Analyst: [facility] Transcribe Date/Time: 2024 3:18P Dictated by : KASANDRA HASSAN MD This examination was interpreted and the report reviewed and electronically signed by: KASANDRA HASSAN MD on 2024 3:41PM [facility] MRI BRAIN WO/W IVCONon 07-21 MRI BRAIN WO/W IVCON * * *Final Report* * * DATE OF EXAM: 2024 3:10PM [facility] 0295 - MRI BRAIN WO/W IVCON / PROCEDURE REASON: multiple diagnoses * * * * Physician Interpretation * * * * EXAMINATION: MRI BRAIN WO/W IVCON, MRV BRAIN WO/W IVCON, MRA BRAIN WO IVCON HISTORY: Positional headache New daily persistent headache TECHNIQUE: Routine contrast MRI protocol including diffusion and gradient echo images. Intracranial 3D klux-nb-ksgitl MRA and MRV with 2D multiplanar and 3D maximum intensity projections calculated on the imaging workstation under physician supervision. MQ: MRBBWO_2 COMPARISON: Brain MRI and MRV 12/30/2022. RESULT: BRAIN: Acute Change: There is no evidence of restricted diffusion to suggest an acute infarct. Hemorrhage: No evidence of prior parenchymal hemorrhage on the gradient echo images. Mass Lesion/ Mass Effect: No evidence of an intracranial mass or extra-axial fluid collection. No significant mass effect. There is no abnormal enhancement. No midline shift or herniation. Chronic Change: The white matter is within normal limits of signal intensity for age. Parenchyma: No significant volume loss for age. The brain parenchyma is otherwise within normal limits of signal intensity and morphology. Ventricles: Normal caliber and morphology. Skull Base: Hypothalamic and pituitary region are grossly normal. Craniocervical junction is normal. No significant marrow replacement process. Vasculature: Major intracranial arterial structures, and dural venous sinuses show typical flow void, suggesting patency by spin echo criteria. Other: There is prominence of the adenoids, which is not an uncommon finding in a patient of this age. There is a partial left mastoid effusion. The visualized paranasal sinuses and mastoid air cells are otherwise clear. The orbits and extracranial soft tissues are unremarkable. INTRACRANIAL MRA: No intracranial arterial stenosis, aneurysm, or other lesion is identified. An anterior communicating artery is present. The bilateral posterior communicating arteries are within normal limits. The intracranial internal carotid arteries and the proximal anterior, middle and posterior cerebral arteries appear normal. The left vertebral artery appears dominant. The intracranial vertebral arteries and the basilar artery appear normal. The visualized predominantly proximal segments of the PICAs, AICAs and SCAs appear normal. INTRACRANIAL MRV: The right transverse sinus is hypoplastic. There is otherwise normal flow-related enhancement in the superior sagittal, bilateral transverse and bilateral sigmoid sinuses as well as the proximal internal jugular veins. There is normal flow-related enhancement in the internal cerebral veins, vein of Emre and straight sinus. There is no evidence of venous sinus thrombosis. IMPRESSION: No acute findings. No acute infarction, intracranial hemorrhage, intracranial mass lesion or abnormal intracranial enhancement. No evidence of hemodynamically significant stenosis, intraluminal filling defect, abrupt vessel occlusion, aneurysm or vascular malformation in the intracranial arterial vasculature. No evidence of dural venous sinus thrombosis. Business Information Analyst: [employer] Transcribe Date/Time: 2024 3:18P Dictated by : KASANDRA HASSAN MD This examination was interpreted and the report reviewed and electronically signed by: KASANDRA HASSAN MD on 2024 3:41PM EST [id number] Normal [facility] MRV BRAIN WO/W IVCONon 07-21 MRV BRAIN WO/W IVCON * * *Final Report* * * DATE OF EXAM: 2024 3:10PM [facility] 0336 - MRV BRAIN WO/W IVCON / PROCEDURE REASON: multiple diagnoses * * * * Physician Interpretation * * * * EXAMINATION: MRI BRAIN WO/W IVCON, MRV BRAIN WO/W IVCON, MRA BRAIN WO IVCON HISTORY: Positional headache New daily persistent headache TECHNIQUE: Routine contrast MRI protocol including diffusion and gradient echo images. Intracranial 3D uwyu-zd-okmqki MRA and MRV with 2D multiplanar and 3D maximum intensity projections calculated on the imaging workstation under physician supervision. MQ: MRBBWO_2 COMPARISON: Brain MRI and MRV 12/30/2022. RESULT: BRAIN: Acute Change: There is no evidence of restricted diffusion to suggest an acute infarct. Hemorrhage: No evidence of prior parenchymal hemorrhage on the gradient echo images. Mass Lesion/ Mass Effect: No evidence of an intracranial mass or extra-axial fluid collection. No significant mass effect. There is no abnormal enhancement. No midline shift or herniation. Chronic Change: The white matter is within normal limits of signal intensity for age. Parenchyma: No significant volume loss for age. The brain parenchyma is otherwise within normal limits of signal intensity and morphology. Ventricles: Normal caliber and morphology. Skull Base: Hypothalamic and pituitary region are grossly normal. Craniocervical junction is normal. No significant marrow replacement process. Vasculature: Major intracranial arterial structures, and dural venous sinuses show typical flow void, suggesting patency by spin echo criteria. Other: There is prominence of the adenoids, which is not an uncommon finding in a patient of this age. There is a partial left mastoid effusion. The visualized paranasal sinuses and mastoid air cells are otherwise clear. The orbits and extracranial soft tissues are unremarkable. INTRACRANIAL MRA: No intracranial arterial stenosis, aneurysm, or other lesion is identified. An anterior communicating artery is present. The bilateral posterior communicating arteries are within normal limits. The intracranial internal carotid arteries and the proximal anterior, middle and posterior cerebral arteries appear normal. The left vertebral artery appears dominant. The intracranial vertebral arteries and the basilar artery appear normal. The visualized predominantly proximal segments of the PICAs, AICAs and SCAs appear normal. INTRACRANIAL MRV: The right transverse sinus is hypoplastic. There is otherwise normal flow-related enhancement in the superior sagittal, bilateral transverse and bilateral sigmoid sinuses as well as the proximal internal jugular veins. There is normal flow-related enhancement in the internal cerebral veins, vein of Emre and straight sinus. There is no evidence of venous sinus thrombosis. IMPRESSION: No acute findings. No acute infarction, intracranial hemorrhage, intracranial mass lesion or abnormal intracranial enhancement. No evidence of hemodynamically significant stenosis, intraluminal filling defect, abrupt vessel occlusion, aneurysm or vascular malformation in the intracranial arterial vasculature. No evidence of dural venous sinus thrombosis. Business Information Analyst: [facility] Transcribe Date/Time: 2024 3:18P Dictated by : KASANDRA HASSAN MD This examination was interpreted and the report reviewed and electronically signed by: KASANDRA HASSAN MD on 2024 3:41PM EST [id number] Normal [facility] No Panel Informationon 07-21 IMPRESSION: No acute findings. No acute infarction, intracranial hemorrhage, intracranial mass lesion or abnormal intracranial enhancement. No evidence of hemodynamically significant stenosis, intraluminal filling defect, abrupt vessel occlusion, aneurysm or vascular malformation in the intracranial arterial vasculature. No evidence of dural venous sinus thrombosis. Business Information Analyst: [facility] Transcribe Date/Time: 2024 3:18P Dictated by : KASANDRA HASSAN MD This examination was interpreted and the report reviewed and electronically signed by: KASANDRA HASSAN MD on 2024 3:41PM EST DIVISION OF RADIOLOGY Radiology Study observation (narrative) [facility] No Panel InformationOrdered By: Ccf Provider on 2024 [facility] PAP TESTon 2024 ADEQUACY Normal [facility] Comment on above: Order Comment: Speci men Type: FLUID SPECIMEN Ordering Facility: [facility] Address: [address] [place] [address] Result Comment: Sati sfactory for interpretation. Transformation zone present Performed By: #### L [id number] #### [facility] CLIA [id number] [address] [place] [address] [place] CASE REPORT Normal [facility] Comment on above: Order Comment: Speci men Type: FLUID SPECIMEN Ordering Facility: [facility] Address: [address] [place] [address] Result Comment: Gyne cologic Cytology Report Case: [id number] Authorizing Provider: Jose G Taylor APRN.CRITICAL CARE EDUCATOR Collected: 2024 04:28 PM Ordering Location: OB/Gynecology Received: 07/22/2024 07:20 AM First Screen: Brenna Shaw, CT, ASCP Specimen: Pap Test, ThinPrep, Cervix Performed By: #### L [id number] #### [facility] CLIA [id number] [address] [place] [address] [place] CLINICAL HISTORY, CYTOLOGY, MGMT ANALYST Routine Exam Normal [facility] Comment on above: Order Comment: Speci men Type: FLUID SPECIMEN Ordering Facility: [facility] Address: [address] [place] [address] Performed By: #### L [id number] #### [facility] CLIA [id number] [address] [place] [address] [place] FINAL PERFORMING LAB Normal [facility] Comment on above: Order Comment: Speci men Type: FLUID SPECIMEN Ordering Facility: [facility] Address: [address] [place] [address] Result Comment: Tech nical component, biomass facilitator screening performed at: [facility], [address] [place], [place] [id number] CLIA: [id number] Diagnostic interpretation performed at: [facility], [address] [place] [address] [place] [address] CLIA# [id number] Blow Off Worker: Feng Hooper MD Performed By: #### L [id number] #### [facility] CLIA [id number] [address] [place], [place] [id number] [place] INTERPRETATION, CYTOLOGY, MGMT ANALYST Normal [facility] Comment on above: Order Comment: Speci men Type: FLUID SPECIMEN Ordering Facility: [facility] Address: [address] [place] [address] Result Comment: Nega tive for intraepithelial lesion or malignancy. at 1037 EDT Performed By: #### L [id number] #### [facility] CLIA [id number] [address] [place], [place] [id number] [place] LMP 06/26/2024 Normal [facility] Comment on above: Order Comment: Speci men Type: FLUID SPECIMEN Ordering Facility: [facility] Address: [address] [place] [address] Performed By: #### L [id number] #### [facility] CLIA [id number] [address] [place] [address] [place] PAP DISCLAIMER COMMENT The Pap Smear is a screening test for cervical cancer. False negative results occur with all screening tests, emphasizing the need for rescreening at recommended intervals, and clinical correlation. Normal [facility] Comment on above: Order Comment: Speci men Type: FLUID SPECIMEN Ordering Facility: [facility] Address: [address] [place] [address] Performed By: #### L [id number] #### [facility] CLIA [id number] [address] [place] [address] [place] PAP VEHICLE REFINISHER COMMENT This specimen has be en analyzed by the FDA-approved Thoora System, which uses digital imaging and an enhanced artificial intelligence image analysis algorithm to identify jones of interest on the microscopic slide, to assist the receiving teller and pathologist in evaluating cells on ThinPrep Pap tests. Following analysis, jones of interest on the microscopic slide selected by the algorithm are reviewed by a receiving teller. If a sample requires hierarchical review, the pathologist will review the same jones of interest selected by the algorithm prior to final interpretation. Normal [facility] Comment on above: Order Comment: Speci men Type: FLUID SPECIMEN Ordering Facility: [facility] Address: [address] [place] [address] Performed By: #### L [id number] #### [facility] CLIA [id number] [address] [place] [address] [place] TRICHOMONAS VAGINALIS NAATon 2024 T. vaginalis DNA PARI+probe Ql (Unsp spec) Not detected Normal Not detected [facility] Comment on above: Order Comment: Speci men Type: SWABOrdering Facility: [facility] Address: [address] [place] [address] Performed By: #### 3 6902-5, WON ####[facility] [id number] [place] [address] [place] 25(OH)D3 SerPl-mCncon 2024 25-hydroxyvitamin D3 [Mass/Vol] 30.6 ng/mL Low 31.0-80.0 [facility] Comment on above: Order Comment: Speci men Type: BLOOD SPECIMENOrdering Facility: [facility] Address: [address] [place] [address] Performed By: #### 1 989-3 ####[facility] [id number] [place] [address] [place] CBC W Auto Differential pane l (Bld)on 06-24-2024 Basophils (Bld) [#/Vol] 0.00 10*3/uL Normal <0.11 [facility] Comment on above: Order Comment: Speci men Type: BLOOD SPECIMENOrdering Facility: [facility] Address: [address] [place] [address] Performed By: #### 5 7021-8 ####[facility] [id number] [place] [address] [place] Basophils/100 WBC (Bld) 0.0 % Normal [facility] Comment on above: Order Comment: Speci men Type: BLOOD SPECIMENOrdering Facility: [facility] Address: [address] [place] [address] Performed By: #### 5 7021-8 ####[facility] [id number] [address], [facility] [place] Dacrocytes LM Ql (Bld) Few Normal [facility] Comment on above: Order Comment: Speci men Type: BLOOD SPECIMENOrdering Facility: [facility] Address: [address] [place] [address] Performed By: #### 5 7021-8 ####[facility] [id number] [address], [place] [address] [place] Differential cell count method Nom (Bld) Manual Normal [facility] Comment on above: Order Comment: Speci men Type: BLOOD SPECIMENOrdering Facility: [facility] Address: [address] [place] [address] Performed By: #### 5 7021-8 ####[facility] [id number] [address], [place] [address] [place] Eosinophils (Bld) [#/Vol] 0.33 10*3/uL Normal <0.46 [facility] Comment on above: Order Comment: Speci men Type: BLOOD SPECIMENOrdering Facility: [facility] Address: [address] [place] [address] Performed By: #### 5 7021-8 ####[facility] [id number] [address], [place] [address] [place] Eosinophils/100 WBC (Bld) 2.7 % Normal [facility] Comment on above: Order Comment: Speci men Type: BLOOD SPECIMENOrdering Facility: [facility] Address: [address] [place] [address] Performed By: #### 5 7021-8 ####[facility] [id number] [place] [address] [place] Erythrocyte distribution width (RBC) [Ratio] 14.3 % Normal 11.5-15.0 [facility] Comment on above: Order Comment: Speci men Type: BLOOD SPECIMENOrdering Facility: [facility] Address: [address] [place] [address] Performed By: #### 5 7021-8 ####[facility] [id number] [address], [facility] [place] Hematocrit (Bld) [Volume fraction] 37.3 % Normal 36.0-46.0 [facility] Comment on above: Order Comment: Speci men Type: BLOOD SPECIMENOrdering Facility: [facility] Address: [address] [place] [address] Performed By: #### 5 7021-8 ####[facility] LABCLIA [id number] [address], [place] [address] [place] Hemoglobin (Bld) [Mass/Vol] 12.2 g/dL Normal 11.5-15.5 [facility] Comment on above: Order Comment: Speci men Type: BLOOD SPECIMENOrdering Facility: [facility] Address: [address] [place] [address] Performed By: #### 5 7021-8 ####[facility] LABIA [id number] [address], [facility] [place] Lymphocytes (Bld) [#/Vol] 3.69 10*3/uL Normal 1.00-4.00 [facility] Comment on above: Order Comment: Speci men Type: BLOOD SPECIMENOrdering Facility: [facility] Address: [address] [place] [address] Performed By: #### 5 7021-8 ####[facility] LABCLIA [id number] [place] [id number] [place] Lymphocytes/100 WBC (Bld) 30.6 % Normal [facility] Comment on above: Order Comment: Speci men Type: BLOOD SPECIMENOrdering Facility: [facility] Address: [address] [place] [address] Performed By: #### 5 7021-8 ####[facility] LABIA [id number] [place] [id number] [place] MCH (RBC) [Entitic mass] 29.3 pg Normal 26.0-34.0 [facility] Comment on above: Order Comment: Speci men Type: BLOOD SPECIMENOrdering Facility: [facility] Address: [address] [place] [address] Performed By: #### 5 7021-8 ####[facility] LABIA [id number] [place] [address] [place] MCHC (RBC) [Mass/Vol] 32.7 g/dL Normal 30.5-36.0 [facility] Comment on above: Order Comment: Speci men Type: BLOOD SPECIMENOrdering Facility: [facility] Address: [address] [place] [address] Performed By: #### 5 7021-8 ####[facility] LABCLIA [id number] [place] [address] [place] MCV (RBC) [Entitic vol] 89.7 fL Normal 80.0-100.0 [facility] Comment on above: Order Comment: Speci men Type: BLOOD SPECIMENOrdering Facility: [facility] Address: [address] [place] [address] Performed By: #### 5 7021-8 ####[facility] LABIA [id number] [place] [address] [place] Monocytes (Bld) [#/Vol] 0.22 10*3/uL Normal <0.87 [facility] Comment on above: Order Comment: Speci men Type: BLOOD SPECIMENOrdering Facility: [facility] Address: [address] [place] [address] Performed By: #### 5 7021-8 ####[facility] LABCLIA [id number] [place] [address] [place] Monocytes/100 WBC (Bld) 1.8 % Normal [facility] Comment on above: Order Comment: Speci men Type: BLOOD SPECIMENOrdering Facility: [facility] Address: [address] [place] [address] Performed By: #### 5 7021-8 ####[facility] LABCLIA [id number] [place] [address] [place] Neutrophils (Bld) [#/Vol] 7.83 10*3/uL High 1.45-7.50 [facility] Comment on above: Order Comment: Speci men Type: BLOOD SPECIMENOrdering Facility: [facility] Address: [address] [place] [address] Performed By: #### 5 7021-8 ####[facility] LABCLIA [id number] [place] [address] [place] Neutrophils/100 WBC (Bld) 64.9 % Normal [facility] Comment on above: Order Comment: Speci men Type: BLOOD SPECIMENOrdering Facility: [facility] Address: [address] [place] [address] Performed By: #### 5 7021-8 ####[facility] LABCLIA [id number] [place] [address] [place] Nucleated RBC (Bld) [#/Vol] 10*3/uL Normal <0.01 [facility] Comment on above: Order Comment: Speci men Type: BLOOD SPECIMENOrdering Facility: [facility] Address: [address] [place] [address] Performed By: #### 5 7021-8 ####[facility] LABCLIA [id number] [place] [address] [place] Nucleated RBC/100 WBC (Bld) [Ratio] 0.0 /100 WBC Normal [facility] Comment on above: Order Comment: Speci men Type: BLOOD SPECIMENOrdering Facility: [facility] Address: [address] [place] [address] Performed By: #### 5 7021-8 ####[facility] LABCLIA [id number] [address] [place] [address] [place] Platelet mean volume (Bld) [Entitic vol] 8.1 fL Low 9.0-12.7 [facility] Comment on above: Order Comment: Speci men Type: BLOOD SPECIMENOrdering Facility: [facility] Address: [address] [place] [address] Performed By: #### 5 7021-8 ####[facility] LABCLIA [id number] [address], [place] [address] [place] Platelets (Bld) [#/Vol] 529 10*3/uL High 150-400 [facility] Comment on above: Order Comment: Speci men Type: BLOOD SPECIMENOrdering Facility: [facility] Address: [address] [place] [address] Performed By: #### 5 7021-8 ####[facility] LABIA [id number] [place] [address] [place] Platelets Estimate (Bld) [#/Vol] Increased Normal [facility] Comment on above: Order Comment: Speci men Type: BLOOD SPECIMENOrdering Facility: [facility] Address: [address] [place] [address] Performed By: #### 5 7021-8 ####[facility] LABCLIA [id number] [address], [place] [address] [place] Polychromasia LM Ql (Bld) Slight Normal [facility] Comment on above: Order Comment: Speci men Type: BLOOD SPECIMENOrdering Facility: [facility] Address: [address] [place] [address] Performed By: #### 5 7021-8 ####[facility] LABIA [id number] [place] [address] [place] RBC (Bld) [#/Vol] 4.16 10*6/uL Normal 3.90-5.20 [facility] Comment on above: Order Comment: Speci men Type: BLOOD SPECIMENOrdering Facility: [facility] Address: [address] [place] [address] Performed By: #### 5 7021-8 ####[facility] LABIA [id number] [place] [address] [place] RED CELL MORPH Reviewed: see result s of individual morphologies Normal [facility] Comment on above: Order Comment: Speci men Type: BLOOD SPECIMENOrdering Facility: [facility] Address: [address] [place] [address] Performed By: #### 5 7021-8 ####[facility] LABIA [id number] [place] [address] [place] WBC (Bld) [#/Vol] 12.07 10*3/uL High 3.70-11.00 [facility] Comment on above: Order Comment: Speci men Type: BLOOD SPECIMENOrdering Facility: [facility] Address: [address] [place] [address] Performed By: #### 5 7021-8 ####[facility] LABIA [id number] [address] [place] CNOVon 06-24-2024 CNOV Office Visit (FAMPWS ) -- SHAHEED JACKSON ([id number]) 4 F Date Time Provider Department 06/24/24 2:40 PM BRYANT GRIMM FAMPWS During your visit today, we recorded the following information about you: Pulse Blood pressure Weight Height 112/minute 116/76 120.7 kg 1.664 m Bryant Grimm MD 06/24/2024 3:30 PM Signed Chief Complaint Patient presents with: Blood Pressure HPI Shaheed Jackson is a 23 year old female who presents here today for Above Complaints.. Patient was last seen 05/25/2024 and was noted to have elevated BP, 138/98, 132/98. Patient her today for recheck. BP at work have been 104/84, 107/74 and 116/76. These were checked by nursing at work Past medical history, appointments, medications, allergies reviewed. Previous Medical History PAST MEDICAL HISTORY Diagnosis Date Attention deficit hyperactivity disorder (ADHD), combined type 12/14/2014 Class 2 obesity due to excess calories without serious comorbidity with body mass index (BMI) of 37.0 to 37.9 in adult Elevated hemoglobin A1c 05/03/2022 PANCHO (generalized anxiety disorder) 05/02/2022 Hyperlipidemia, mixed 05/03/2022 Major depressive disorder with single episode 05/02/2022 Oppositional defiant disorder 11/07/2007 JUAN M (obstructive sleep apnea) 05/25/2024 Seeing [facility] Sleep Med. 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 Pseudotumor cerebri 07/04/[address] Andrew Seasonal allergies Thrombocytosis 05/03/2022 Chronic since 2003 (500-550) Vitamin D deficiency 05/25/2024 Previous Surgical History PAST SURGICAL HISTORY Procedure Laterality Date SECTION HX 05/02/2021 NONE Family History FAMILY HISTORY Problem Relation Age of Onset other (Other) Mother restless leg Lipids Father Diabetes Maternal Grandmother Hypertension Maternal Grandmother other (sleep apnea) Maternal Grandmother Hypertension Maternal Grandfather other (sleep apnea) Maternal Grandfather Colon Cancer Paternal Grandmother Lipids Paternal Grandfather Diabetes Paternal Grandfather Patient Allergies ALLERGIES No Known Allergies Current Medications Current Outpatient Medications on File Prior to Visit Medication Sig PROZAC 20 mg capsule Take 20 mg by mouth once daily. hydrOXYzine HCl (ATARAX) 25 mg tablet Take 25 mg by mouth three times a day. topiramate (TOPAMAX) 100 mg tablet Take 1 tablet by mouth daily at bedtime. buPROPion XL (WELLBUTRIN XL) 300 mg 24 hr tablet Take 1 tablet by mouth once daily. Per Psych, Tranquility cholecalciferol, Vitamin D3, (VITAMIN D3) 1,250 mcg (50,000 unit) cap capsule Take 1 capsule by mouth one time a week. aspirin/acetaminophen/caff eine (EXCEDRIN MIGRAINE ORAL) Drug free headache Care peg Cadena jensen, r hamn ([facility] PROBIOTIC ORAL) Lacto no.76/Bifido/FOS/larch (WOMEN'S PROBIOTIC ORAL) mv-min/iron/folic/calcium/ vitK (WOMEN'S MULTIVITAMIN ORAL) propranolol (INDERAL) 10 mg tablet Take 10 mg by mouth. As needed flaxseed oil (OMEGA 3 ORAL) Take by mouth as directed. CPAP/BIPAP/OTHER autoCPAP 8-10 cmH2O [facility] acetaminophen 325 mg cap Take by mouth. cetirizine (ZYRTEC) 10 mg tablet Take 1 tablet by mouth once daily. Ibuprofen 200 mg cap Take by mouth every 4 hours as needed. FOR PAIN. No current facility-administered medications on file prior to visit. Social History Social History Tobacco Use Smoking status: Never Passive exposure: Never Smokeless tobacco: Never Vaping Use Vaping status: Never Used Substance Use Topics Alcohol use: No Drug use: No Review of Symptoms REVIEW OF SYSTEMS RESPIRATORY: Negative for wheezing, COPD, dyspnea or shortness of breath CARDIOVASCULAR: Negative for chest pain, leg swelling, hypertension, CHF or palpitations NEURO: No history of headaches, syncope, paralysis, seizures or tremors. Since being on the Topamax her headache's have been none existent. EXAM: BP 126/88 Pulse 112 Ht 166.4 cm (5' 5.5) Wt 120.7 kg (266 lb) LMP 05/22/2024 (Approximate) SpO2 98% BMI 43.59 kg/m? BP 134/92 Pulse 112 Ht 166.4 cm (5' 5.5) Wt 120.7 kg (266 lb) LMP 05/22/2024 (Approximate) SpO2 98% BMI 43.59 kg/m? BP 116/76 Pulse 112 Ht 166.4 cm (5' 5.5) Wt 120.7 kg (266 lb) LMP 05/22/2024 (Approximate) SpO2 98% BMI 43.59 kg/m? General Appearance: Well appearing, alert, in no acute distress, well-hydrated, well nourished. and Morbidly obese. Lungs: Lungs clear to auscultation. No wheezing, rhonchi, rales.. Heart: RRR without murmur, gallop, or rubs. No ectopy. Health Maintenance List GC (Gonorrhea) Screening (18-24) Never done HIV Screening Never done Chlamydia Screening (18-24) Never done Cervical Cancer Screening Never done Covid-19 Vaccine( season) due on 11/06/2024 DTaP,Tdap,Td Vaccine(7 - Td or Tdap) due on 10/03/2024 Hepat (more content not included)... [facility] -- SHAHEED JACKSON ([id number]) 4 F Date Time Provider Department 05/27/24 BRYANT GRIMM During your visit today, we recorded the following information about you: Parisa Jasso LPN 05/27/2024 2:44 PM Signed Pt calling requesting to have a copy of her labs completed 05/18/24 faxed to [facility] ATTN: Shaheed. Fax number [phone]. Copy of labs faxed as requested. Parisa Jasso LPN Allergies As of Date: 05/27/2024 (No Known Allergies) Date Reviewed: 05/25/2024 Reviewed by: Bryant Grimm MD - Fully Assessed Reason for Visit: Requesting Lab results [Other] Prescriptions as of 05/27/2024 - topiramate (TOPAMAX) 50 mg tablet Take 1 tablet by mouth daily at bedtime. - buPROPion XL (WELLBUTRIN XL) 300 mg 24 hr tablet Take 1 tablet by mouth once daily. Per Psych, Tranquility - venlafaxine ER (EFFEXOR XR) 150 mg 24 hr capsule Take 1 capsule by mouth once daily. Take with the 75mg capsule for total daily dose of 225mg. Per Psych, Tranquility - venlafaxine ER (EFFEXOR XR) 75 mg 24 hr capsule Take 1 capsule by mouth once daily. Take with the 150mg capsule for total daily dose of 225mg. Per Psych, Tranquility - cholecalciferol, Vitamin D3, (VITAMIN D3) 1,250 mcg (50,000 unit) cap capsule Take 1 capsule by mouth one time a week. - aspirin/acetaminophen/caff eine (EXCEDRIN MIGRAINE ORAL) Drug free headache Care - peg Cadena jensen, r hamn ([facility]IN[facility] PROBIOTIC ORAL) - Lacto no.76/Bifido/FOS/larch (WOMEN'S PROBIOTIC ORAL) - mv-min/iron/folic/calcium/ vitK (WOMEN'S MULTIVITAMIN ORAL) - propranolol (INDERAL) 10 mg tablet Take 10 mg by mouth. As needed - flaxseed oil (OMEGA 3 ORAL) Take by mouth as directed. - CPAP/BIPAP/OTHER autoCPAP 8-10 cmH2O [facility] - acetaminophen 325 mg cap Take by mouth. - cetirizine (ZYRTEC) 10 mg tablet Take 1 tablet by mouth once daily. - Ibuprofen 200 mg cap Take by mouth every 4 hours as needed. FOR PAIN. 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] 09/30/2018 Class 2 obesity due to excess calories without * Pseudotumor cerebri [G93.2] 07/04/2021 Major depressive disorder with single episode [*05/02/2022 PANCHO (generalized anxiety disorder) [F41.1] 05/02/2022 Encounter for screening for diabetes mellitus [*05/02/2022 Elevated hemoglobin A1c [R73.09] 05/03/2022 Hyperlipidemia, mixed [E78.2] 05/03/2022 Hypercalcemia [E83.52] 05/03/2022 Elevated LFTs [R79.89] 05/03/2022 Thrombocytosis [D75.839] 05/03/2022 WHITNEY (nonalcoholic steatohepatitis) [K75.81] 05/25/2024 Vitamin D deficiency [E55.9] 05/25/2024 JUAN M (obstructive sleep apnea) [G47.33] 05/25/2024 Medication management [Z79.899] 05/25/2024 Encounter Status:Closed by PARISA JASSO on 05/27/24 [facility] CNOVon 05-25-2024 CNOV Office Visit (FAMPWS ) -- SHAHEED JACKSON ([id number]) 4 F Date Time Provider Department 05/25/24 10:00 AM [facility] your visit today, we recorded the following information about you: Pulse Respiration Blood pressure Weight 96/minute 16/minute 132/98 121.1 kg Last Period 05/22/24 Bryant Grimm MD 05/25/2024 7:39 PM Signed Chief Complaint Patient presents with: Follow Up HPI Shaheed Hirschtt is a 23 year old female who presents here today for follow up. Patient has been having elevated liver functions. . Patient signed up at work for weight loss program. Exercise/diet and weight loss medication, waiting insurance for coverage. My chart message I am sending this, so I don?t forget. Would it be possible for you to write up a letter stating my recent diagnosis with the liver and blood results? I am wanting to get my wisdom teeth out in July, and with the elevated levels they were a little concerned. They just wanna make sure you are okay with proceeding. we can discuss more at my appointment on Friday if needed. If you could, fax it to [facility]. There fax is [phone] Patient continues to do well on the Effexor and Wellbutrin. She is seeing Psych now for the management of her mental health issues. Patient seeing neuro for her pseudotumor cerebri. Patient has been working on increased physical activity. No new issues or concerns. Past medical history, appointments, medications, allergies reviewed. Previous Medical History PAST MEDICAL HISTORY Diagnosis Date Attention deficit hyperactivity disorder (ADHD), combined type 12/14/2014 Class 2 obesity due to excess calories without serious comorbidity with body mass index (BMI) of 37.0 to 37.9 in adult Elevated hemoglobin A1c 05/03/2022 PANCHO (generalized anxiety disorder) 05/02/2022 Hyperlipidemia, mixed 05/03/2022 Major depressive disorder with single episode 05/02/2022 Oppositional defiant disorder 11/07/2007 Paradoxical insomnia 09/30/2018 using meletonin. Pseudotumor cerebri 07/04/[address] Andrew Seasonal allergies Thrombocytosis 05/03/2022 Chronic since 2003 (500-550) Previous Surgical History PAST SURGICAL HISTORY Procedure Laterality Date SECTION HX 05/02/2021 NONE Family History FAMILY HISTORY Problem Relation Age of Onset other (Other) Mother restless leg Lipids Father Diabetes Maternal Grandmother Hypertension Maternal Grandmother other (sleep apnea) Maternal Grandmother Hypertension Maternal Grandfather other (sleep apnea) Maternal Grandfather Colon Cancer Paternal Grandmother Lipids Paternal Grandfather Diabetes Paternal Grandfather Patient Allergies ALLERGIES No Known Allergies Current Medications Current Outpatient Medications on File Prior to Visit Medication Sig aspirin/acetaminophen/caff eine (EXCEDRIN MIGRAINE ORAL) Drug free headache Care peg Cadena,francisr sreedhar ([facility] PROBIOTIC ORAL) Lacto no.76/Bifido/FOS/larch (WOMEN'S PROBIOTIC ORAL) mv-min/iron/folic/calcium/ vitK (WOMEN'S MULTIVITAMIN ORAL) topiramate (TOPAMAX) 25 mg tablet Take 1 tablet by mouth daily at bedtime. propranolol (INDERAL) 10 mg tablet Take 10 mg by mouth. As needed venlafaxine ER (EFFEXOR XR) 75 mg 24 hr capsule Take 1 capsule by mouth once daily. Take with the 150mg capsule for total daily dose of 225mg. venlafaxine ER (EFFEXOR XR) 150 mg 24 hr capsule Take 1 capsule by mouth once daily. Take with the 75mg capsule for total daily dose of 225mg. buPROPion XL (WELLBUTRIN XL) 300 mg 24 hr tablet Take 1 tablet by mouth once daily. flaxseed oil (OMEGA 3 ORAL) Take by mouth as directed. CPAP/BIPAP/OTHER autoCPAP 8-10 cmH2O [facility] acetaminophen 325 mg cap Take by mouth. cetirizine (ZYRTEC) 10 mg tablet Take 1 tablet by mouth once daily. Ibuprofen 200 mg cap Take by mouth every 4 hours as needed. FOR PAIN. No current facility-administered medications on file prior to visit. Social History Social History Tobacco Use Smoking status: Never Passive exposure: Never Smokeless tobacco: Never Vaping Use Vaping status: Never Used Substance Use Topics Alcohol use: No Drug use: No Review of Symptoms REVIEW OF SYSTEMS GENERAL: No weight loss, malaise or fevers NECK: Negative for lumps, goiter, pain and significant neck swelling RESPIRATORY: Negative for cough, hemoptysis, wheezing, COPD, dyspnea or shortness of breath CARDIOVASCULAR: Negative for chest pain, leg swelling, hypertension, CHF or palpitations GI: No nausea, vomiting, or diarrhea and No heartburn or reflux symptoms NEURO: No history of, syncope, paralysis, seizures or tremors./ headache's have decreased since starting on the Topamax. No URI symptoms or UTI symptoms on review. EXAM: BP 138/98 Pulse 96 Resp 16 Wt 121.1 kg (267 lb) LM (more content not included)... Normal [facility] POTASSIUMon 05-25-2024 Potassium [Moles/Vol] 4.1 mmol/L Normal 3.7-5.1 [facility] Comment on above: Order Comment: Speci men Type: BLOOD SPECIMEN [facility] Address: [address] [place] [address] Performed By: #### K 1 #### [facility] CLIA [id number] [address] [place], [place] [address] [address] [place] 25(OH)D3 [facility] 25-hydroxyvitamin D3 [Mass/Vol] 19.5 ng/mL Low 31.0-80.0 [facility] Comment on above: Order Comment: Speci men Type: BLOOD SPECIMENOrdering Facility: [facility] Address: [address] [place] [address] Performed By: #### 1 989-3 ####[facility] LABCLIA [id number] [place] [address] [place] Bacteria Ur Culton Bacteria identified Cx Nom (U) ORGANISM ID: 1 10,000 -<50,000 CFU/ml Normal urogenital violeta Normal [facility] Comment on above: Performed By: #### 6 30-4 ####[facility] LABCLIA [id number] [place] [address] [place] CBC W Auto Differential pane l (Bld)on 05-18-2024 Basophils (Bld) [#/Vol] 0.06 10*3/uL Normal <0.11 [facility] Comment on above: Order Comment: Speci men Type: BLOOD SPECIMENOrdering Facility: [facility] Address: [address] [place] [address] Performed By: #### 5 7021-8 ####[facility] LABCLIA [id number] [place] [address] [place] Basophils/100 WBC (Bld) 0.5 % Normal [facility] Comment on above: Order Comment: Speci men Type: BLOOD SPECIMENOrdering Facility: [facility] Address: [address] [place] [address] Performed By: #### 5 7021-8 ####[facility] LABCLIA [id number] [address] [place] Differential cell count method Nom (Bld) Auto Normal [facility] Comment on above: Order Comment: Speci men Type: BLOOD SPECIMENOrdering Facility: [facility] Address: [address] [place] [address] Performed By: #### 5 7021-8 ####[facility] LABCLIA [id number] [place] [address] [place] Eosinophils (Bld) [#/Vol] 0.31 10*3/uL Normal <0.46 [facility] Comment on above: Order Comment: Speci men Type: BLOOD SPECIMENOrdering Facility: [facility] Address: [address] [place] [address] Performed By: #### 5 7021-8 ####[facility] LABCLIA [id number] [address] [place] [address] [place] Eosinophils/100 WBC (Bld) 2.4 % Normal [facility] Comment on above: Order Comment: Speci men Type: BLOOD SPECIMENOrdering Facility: [facility] Address: [address] [place] [address] Performed By: #### 5 7021-8 ####[facility] LABCLIA [id number] [address], [facility] [place] Erythrocyte distribution width (RBC) [Ratio] 14.2 % Normal 11.5-15.0 [facility] Comment on above: Order Comment: Speci men Type: BLOOD SPECIMENOrdering Facility: [facility] Address: [address] [place] [address] Performed By: #### 5 7021-8 ####[facility] LABIA [id number] [address], [facility] [place] Hematocrit (Bld) [Volume fraction] 38.2 % Normal 36.0-46.0 [facility] Comment on above: Order Comment: Speci men Type: BLOOD SPECIMENOrdering Facility: [facility] Address: [address] [place] [address] Performed By: #### 5 7021-8 ####[facility] LABCLIA [id number] [address] [place] [address] [place] Hemoglobin (Bld) [Mass/Vol] 12.1 g/dL Normal 11.5-15.5 [facility] Comment on above: Order Comment: Speci men Type: BLOOD SPECIMENOrdering Facility: [facility] Address: [address] [place] [address] Performed By: #### 5 7021-8 ####[facility] LABIA [id number] [address] [place] [address] [place] Immature granulocytes (Bld) [#/Vol] 0.08 10*3/uL Normal <0.10 [facility] Comment on above: Order Comment: Speci men Type: BLOOD SPECIMENOrdering Facility: [facility] Address: [address] [place] [address] Performed By: #### 5 7021-8 ####[facility] LABCLIA [id number] [place] [address] [place] Immature granulocytes/100 WBC (Bld) 0.6 % Normal [facility] Comment on above: Order Comment: Speci men Type: BLOOD SPECIMENOrdering Facility: [facility] Address: [address] [place] [address] Performed By: #### 5 7021-8 ####[facility] LABCLIA [id number] [place] [address] [place] Lymphocytes (Bld) [#/Vol] 3.67 10*3/uL Normal 1.00-4.00 [facility] Comment on above: Order Comment: Speci men Type: BLOOD SPECIMENOrdering Facility: [facility] Address: [address] [place] [address] Performed By: #### 5 7021-8 ####[facility] LABCLIA [id number] [place] [address] [place] Lymphocytes/100 WBC (Bld) 28.1 % Normal [facility] Comment on above: Order Comment: Speci men Type: BLOOD SPECIMENOrdering Facility: [facility] Address: [address] [place] [address] Performed By: #### 5 7021-8 ####[facility] LABCLIA [id number] [place] [address] [place] MCH (RBC) [Entitic mass] 28.4 pg Normal 26.0-34.0 [facility] Comment on above: Order Comment: Speci men Type: BLOOD SPECIMENOrdering Facility: [facility] Address: [address] [place] [address] Performed By: #### 5 7021-8 ####[facility] LABCLIA [id number] [place] [address] [place] MCHC (RBC) [Mass/Vol] 31.7 g/dL Normal 30.5-36.0 [facility] Comment on above: Order Comment: Speci men Type: BLOOD SPECIMENOrdering Facility: [facility] Address: [address] [place] [address] Performed By: #### 5 7021-8 ####[facility] LABIA [id number] [place] [address] [place] MCV (RBC) [Entitic vol] 89.7 fL Normal 80.0-100.0 [facility] Comment on above: Order Comment: Speci men Type: BLOOD SPECIMENOrdering Facility: [facility] Address: [address] [place] [address] Performed By: #### 5 7021-8 ####[facility] LABIA [id number] [place] [address] [place] Monocytes (Bld) [#/Vol] 0.77 10*3/uL Normal <0.87 [facility] Comment on above: Order Comment: Speci men Type: BLOOD SPECIMENOrdering Facility: [facility] Address: [address] [place] [address] Performed By: #### 5 7021-8 ####[facility] LABCLIA [id number] [place] [address] [place] Monocytes/100 WBC (Bld) 5.9 % Normal [facility] Comment on above: Order Comment: Speci men Type: BLOOD SPECIMENOrdering Facility: [facility] Address: [address] [place] [address] Performed By: #### 5 7021-8 ####[facility] LABCLIA [id number] [place] [address] [place] Neutrophils (Bld) [#/Vol] 8.17 10*3/uL High 1.45-7.50 [facility] Comment on above: Order Comment: Speci men Type: BLOOD SPECIMENOrdering Facility: [facility] Address: [address] [place] [address] Performed By: #### 5 7021-8 ####[facility] LABCLIA [id number] [facility] [place] [address] [place] Neutrophils/100 WBC (Bld) 62.5 % Normal [facility] Comment on above: Order Comment: Speci men Type: BLOOD SPECIMENOrdering Facility: [facility] Address: [address] [place] [address] Performed By: #### 5 7021-8 ####[facility] LABCLIA [id number] [place] [address] [place] Nucleated RBC (Bld) [#/Vol] 10*3/uL Normal <0.01 [facility] Comment on above: Order Comment: Speci men Type: BLOOD SPECIMENOrdering Facility: [facility] Address: [address] [place] [address] Performed By: #### 5 7021-8 ####[facility] LABCLIA [id number] [place] [address] [place] Nucleated RBC/100 WBC (Bld) [Ratio] 0.0 /100 WBC Normal [facility] Comment on above: Order Comment: Speci men Type: BLOOD SPECIMENOrdering Facility: [facility] Address: [address] [place] [address] Performed By: #### 5 7021-8 ####[facility] LABCLIA [id number] [place] [address] [place] Platelet mean volume (Bld) [Entitic vol] 8.0 fL Low 9.0-12.7 [facility] Comment on above: Order Comment: Speci men Type: BLOOD SPECIMENOrdering Facility: [facility] Address: [address] [place] [address] Performed By: #### 5 7021-8 ####[facility] LABIA [id number] [address] [address] [place] Platelets (Bld) [#/Vol] 517 10*3/uL High 150-400 [facility] Comment on above: Order Comment: Speci men Type: BLOOD SPECIMENOrdering Facility: [facility] Address: [address] [place] [address] Performed By: #### 5 7021-8 ####[facility] LABIA [id number] [place] [address] [place] RBC (Bld) [#/Vol] 4.26 10*6/uL Normal 3.90-5.20 [facility] Comment on above: Order Comment: Speci men Type: BLOOD SPECIMENOrdering Facility: [facility] Address: [address] [place], [place] [address] Performed By: #### 5 7021-8 ####[facility] LABIA [id number] [place] [address] [place] WBC (Bld) [#/Vol] 13.06 10*3/uL High 3.70-11.00 [facility] Comment on above: Order Comment: Speci men Type: BLOOD SPECIMENOrdering Facility: [facility] Address: [address] [place], [place] [address] Performed By: #### 5 7021-8 ####[facility] LABIA [id number] [address] [address] [place] Calcium SerPl-mCncon 025 Calcium [Mass/Vol] 10.3 mg/dL High 8.5-10.2 [facility] Comment on above: Order Comment: Speci men Type: BLOOD SPECIMENOrdering Facility: [facility] Address: [address] [place], [place] [address] Performed By: #### 1 7861-6, 09003-8 ####[facility] LABCLIA [id number] [place] [address] [place] HAV IgM Ser Qlon 05-18-2024 HAV IgM Ql (S) Negative Normal Negative [facility] Comment on above: Order Comment: Speci men Type: BLOOD SPECIMENOrdering Facility: [facility] Address: [address] [place] [address] Result Comment: No e vidence of recent infection with Hepatitis A virus. Performed By: #### 5 195-3, 35517-9, 51404-3 ####[facility] LABCLIA [id number] [place] [address] [place] HBV core IgM Ser Qlon 2024 HBV core IgM Ql (S) Negative Normal Negative [facility] Comment on above: Order Comment: Speci men Type: BLOOD SPECIMENOrdering Facility: [facility] Address: [address] [place] [address] Result Comment: No e vidence of recent infection with Hepatitis B virus. Should recent infection be suspected, repeat testing may be considered 3-4 weeks after this draw. Performed By: #### 5 195-3, 40495-3, 61502-3 ####[facility] LABCLIA [id number] [place] [address] [place] HBV surface Ag Ser Qlon 04- HBV surface Ag Ql (S) Negative Normal Negative [facility] Comment on above: Order Comment: Speci men Type: BLOOD SPECIMENOrdering Facility: [facility] Address: [address] [place] [address] Performed By: #### 5 195-3, 59602-2, 29597-6 ####[facility] LABCLIA [id number] [place] [address] [place] HCV Ab Ser Qlon 05-18-2024 HCV Ab Ql (S) Negative Normal Negative [facility] Comment on above: Order Comment: Speci men Type: BLOOD SPECIMENOrdering Facility: [facility] Address: [address] [place] [address] Result Comment: The result suggests no evidence of infection with Hepatitis C virus. Should recent infection be suspected, repeat testing may be considered 4-6 weeks after this draw. Performed By: #### 1 6128-1 ####[facility] LABCLIA [id number] [place] [address] [place] Hepatic function 2000 panelo n 05-18-2024 Albumin [Mass/Vol] 4.6 g/dL Normal 3.9-4.9 [facility] Comment on above: Order Comment: Deejayi sam Type: BLOOD SPECIMENOrdering Facility: [facility] Address: [address] [place] [address] Performed By: #### 1 7861-6, 31002-4 ####[facility] LABCLIA [id number] [address], [facility] [place] ALP [Catalytic activity/Vol] 57 U/L Normal 34-123 [facility] Comment on above: Order Comment: Speci men Type: BLOOD SPECIMENOrdering Facility: [facility] Address: [address] [place] [address] Performed By: #### 1 7861-6, 43987-4 ####[facility] LABCLIA [id number] [place] [address] [place] ALT [Catalytic activity/Vol] 54 U/L High 7-38 [facility] Comment on above: Order Comment: Speci men Type: BLOOD SPECIMENOrdering Facility: [facility] Address: [address] [place] [address] Performed By: #### 1 7861-6, 64125-2 ####[facility] LABCLIA [id number] [facility] [address] [place] [address] [place] AST [Catalytic activity/Vol] 33 U/L Normal 13-35 [facility] Comment on above: Order Comment: Speci men Type: BLOOD SPECIMENOrdering Facility: [facility] Address: [address] [place], [place] [address] Performed By: #### 1 7861-6, 50261-7 ####[facility] LABCLIA [id number] [address] [place] [address] [place] Bilirubin [Mass/Vol] 0.2 mg/dL Normal 0.2-1.3 [facility] Comment on above: Order Comment: Speci men Type: BLOOD SPECIMENOrdering Facility: [facility] Address: [address] [place], [place] [address] Performed By: #### 1 7861-6, 17488-8 ####[facility] LABCLIA [id number] [address] [address] [place] Bilirubin.conjugated [Mass/Vol] 0.1 mg/dL Normal <0.3 [facility] Comment on above: Order Comment: Speci men Type: BLOOD SPECIMENOrdering Facility: [facility] Address: [address] [place] [address] Performed By: #### 1 7861-6, 30172-5 ####[facility] LABCLIA [id number] [address] [address] [place] Protein [Mass/Vol] 8.0 g/dL Normal 6.3-8.0 [facility] Comment on above: Order Comment: Speci men Type: BLOOD SPECIMENOrdering Facility: [facility] Address: [address] [place], [place] [address] Performed By: #### 1 7861-6, 97506-7 ####[facility] LABIA [id number] [address] [address] [place] LIPID PANEL, NONFASTINGon Cholesterol [Mass/Vol] 220 mg/dL High <200 [facility] Comment on above: Order Comment: Speci men Type: BLOOD SPECIMENOrdering Facility: [facility] Address: [address] [place] [address] Result Comment: <200 mg/dL, Desirable 200-239 mg/dL, Borderline high >239 mg/dL, High Performed By: #### L IPNF, 2730-09 ####[facility] LABCLIA [id number] [place] [address] [place] HDL CHOLESTEROL, NF 27 mg/dL Low >39 [facility] Comment on above: Order Comment: Speci men Type: BLOOD SPECIMENOrdering Facility: [facility] Address: [address] [place] [address] Result Comment: 40-5 9 mg/dL, Acceptable >59 mg/dL, High: Negative risk factor for coronary heart disease <40 mg/dL, Low: Positive risk factor for coronary heart disease Performed By: #### L IPJACOB, 2730-09 ####[facility] LABCLIA [id number] [place] [address] [place] LDL CHOLESTEROL, NF 115 mg/dL High <100 [facility] Comment on above: Order Comment: Speci men Type: BLOOD SPECIMENOrdering Facility: [facility] Address: [address] [place] [address] Result Comment: <100 mg/dL, Optimal 100-129 mg/dL, Near optimal/above optimal 130-159 mg/dL, Borderline high 160-189 mg/dL, High >189 mg/dL, Very high Secondary prevention optimal LDL Cholesterol levels are recommended to be < 70 mg/dL Performed By: #### L IPJACOB, 2730-09 ####[facility] LABCLIA [id number] [place] [address] [place] LDL/HDL RATIO, NF 4.26 mg/dL High <2.54 [facility] Comment on above: Order Comment: Speci men Type: BLOOD SPECIMENOrdering Facility: [facility] Address: [address] [place] [address] Result Comment: Refe rence: 1. National Cholesterol Education Program ATP III Guideline At-A-Glance Quick Desk Reference: National Heart, Lung, and Blood Wilmer. National Institutes of Health. 2001: NIH Publication No. 01-3305. 2. An International Atherosclerosis Society position paper: global recommendations for the management of dyslipidemia: executive summary, Atherosclerosis. 2014: 232(2):410-413. Cut Points from the Lip[facility]'s Prevalence Study for ages 20 to 24 years can be located in the following reference: Expert Panel on Integrated Guidelines for Cardiovascular Health and Risk Reduction in Children and Adolescents: National Heart, Lung and Blood Wilmer. Pediatrics. 2011:128(Suppl 5):B379-077. Performed By: #### L IPJACOB, 2730-09 ####[facility] LABCLIA [id number] [address] [place] NON HDL CHOL, NF 193 mg/dL High <130 [facility] Comment on above: Order Comment: Chavez vargas Type: BLOOD SPECIMENOrdering Facility: [facility] Address: [address] [place] [address] Result Comment: <130 mg/dL, Optimal 130-159 mg/dL, Near optimal/above optimal 160-189 mg/dL, Borderline high 190-219 mg/dL, High >219 mg/dL, Very high Secondary prevention optimal non HDL Cholesterol levels are recommended to be <100 mg/dL Performed By: #### L TOMAS, 2730-09 ####[facility] LABCLIA [id number] [address] [place] T CHOL/HDL RATIO NF 8.15 mg/dL High <5.10 [facility] Comment on above: Order Comment: Chavez vargas Type: BLOOD SPECIMENOrdering Facility: [facility] Address: [address] [place] [address] Performed By: #### L IPJACOB, 2730-09 ####[facility] LABCLIA [id number] [place] [address] [place] TRIGLYCERIDES, NF 391 mg/dL High <150 [facility] Comment on above: Order Comment: Chavez vargas Type: BLOOD SPECIMENOrdering Facility: [facility] Address: [address] [place], [place] [address] Result Comment: <150 mg/dL, Normal 150-199 mg/dL, Borderline high 200-499 mg/dL, High >499 mg/dL, Very high Performed By: #### L IPJACOB, 2730-09 ####[facility] LABCLIA [id number] [address] [place] [address] [place] VLDL CHOLESTEROL, NF 78 mg/dL High <30 [facility] Comment on above: Order Comment: Speci men Type: BLOOD SPECIMENOrdering Facility: [facility] Address: [address] [place] [address] Performed By: #### L IPJACOB, 2730-09 ####[facility] LABCLIA [id number] [address] [place] [address] [place] [facility] Parathyrin.intact [Mass/Vol] 25 pg/mL Normal 15-65 [facility] Comment on above: Order Comment: Speci men Type: BLOOD SPECIMENOrdering Facility: [facility] Address: [address] [place] [address] Performed By: #### L IPJACOB, 2730-09 ####[facility] LABIA [id number] [address] [address] [place] US ABD RIGHT UPPER QUADRANTo n 05-18-2024 US ABD RIGHT UPPER QUADRANT * * *Final Report* * * DATE OF EXAM: May 18 2024 7:23AM WRU 1032 - US ABD RIGHT UPPER QUADRANT / PROCEDURE REASON: Elevated liver enzymes * * * * Physician Interpretation * * * * EXAMINATION: RIGHT UPPER QUADRANT ULTRASOUND CLINICAL HISTORY: Elevated LFTs TECHNIQUE: Sonography of the right upper quadrant was performed. Images were obtained and stored in a permanent archive. MQ: URUQ_2 COMPARISON: None. RESULT: Pancreas: Normal sonographic appearance. Portions obscured: Portions of the head, distal body and tail are suboptimally seen due to overlying bowel gas Liver: Echotexture: Normal, homogeneous. Echogenicity: Diffusely increased echogenicity and increased attenuation of sound is consistent with fatty infiltration Surface contour: Smooth Lesions: None. Biliary: No intrahepatic biliary duct dilation. CBD: 0.4 cm at the hilum. Gallbladder: Normal caliber -Contents: No cholelithiasis -Wall: Normal -Other: No pericholecystic fluid. Right Kidney: No hydronephrosis. Ascites: None. IMPRESSION: Fatty infiltration of the liver Otherwise normal sonographic appearance of the right upper quadrant. Visualization is suboptimal due to overlying bowel gas and patient build Business Information Analyst: [facility] Transcribe Date/Time: May 18 2024 3:22P Dictated by : MCKINLEY REDDY MD This examination was interpreted and the report reviewed and electronically signed by: MCKINLEY REDDY MD on May 18 2024 3:23PM EST [id number] Normal [facility] US Abdomen RUQon 05-18-2024 IMPRESSION: Fatty infiltration of the liver Otherwise normal sonographic appearance of the right upper quadrant. Visualization is suboptimal due to overlying bowel gas and patient build Business Information Analyst: [facility] Transcribe Date/Time: May 18 2024 3:22P Dictated by : MCKINLEY REDDY MD This examination was interpreted and the report reviewed and electronically signed by: MCKINLEY REDDY MD on May 18 2024 3:23PM EST DIVISION OF RADIOLOGY * * *Final Report* * * DATE OF EXAM: May 18 2024 7:23AM WRU 1032 - US ABD RIGHT UPPER QUADRANT / PROCEDURE REASON: Elevated liver enzymes * * * * Physician Interpretation * * * * EXAMINATION: RIGHT UPPER QUADRANT ULTRASOUND CLINICAL HISTORY: Elevated LFTs TECHNIQUE: Sonography of the right upper quadrant was performed. Images were obtained and stored in a permanent archive. MQ: URUQ_2 COMPARISON: None. RESULT: Pancreas: Normal sonographic appearance. Portions obscured: Portions of the head, distal body and tail are suboptimally seen due to overlying bowel gas Liver: Echotexture: Normal, homogeneous. Echogenicity: Diffusely increased echogenicity and increased attenuation of sound is consistent with fatty infiltration Surface contour: Smooth Lesions: None. Biliary: No intrahepatic biliary duct dilation. CBD: 0.4 cm at the hilum. Gallbladder: Normal caliber -Contents: No cholelithiasis -Wall: Normal -Other: No pericholecystic fluid. Right Kidney: No hydronephrosis. Ascites: None. DIVISION OF RADIOLOGY Provider, [facility] - 05/18/2024 * * *Final Report* * * DATE OF EXAM: May 18 2024 7:23AM WRU 1032 - US ABD RIGHT UPPER QUADRANT / PROCEDURE REASON: Elevated liver enzymes * * * * Physician Interpretation * * * * EXAMINATION: RIGHT UPPER QUADRANT ULTRASOUND CLINICAL HISTORY: Elevated LFTs TECHNIQUE: Sonography of the right upper quadrant was performed. Images were obtained and stored in a permanent archive. MQ: URUQ_2 COMPARISON: None. RESULT: Pancreas: Normal sonographic appearance. Portions obscured: Portions of the head, distal body and tail are suboptimally seen due to overlying bowel gas Liver: Echotexture: Normal, homogeneous. Echogenicity: Diffusely increased echogenicity and increased attenuation of sound is consistent with fatty infiltration Surface contour: Smooth Lesions: None. Biliary: No intrahepatic biliary duct dilation. CBD: 0.4 cm at the hilum. Gallbladder: Normal caliber -Contents: No cholelithiasis -Wall: Normal -Other: No pericholecystic fluid. Right Kidney: No hydronephrosis. Ascites: None. IMPRESSION IMPRESSION: Fatty infiltration of the liver Otherwise normal sonographic appearance of the right upper quadrant. Visualization is suboptimal due to overlying bowel gas and patient build Business Information Analyst: [employer] Transcribe Date/Time: May 18 2024 3:22P Dictated by : MCKINLEY REDDY MD This examination was interpreted and the report reviewed and electronically signed by: MCKINLEY REDDY MD on May 18 2024 3:23PM EST [facility] Radiology Study observation (narrative) [facility] US Abdomen RUQOrdered By: Cc f Provider on 05-18-2024 [facility] Urinalysis complete panel (U )on 05-18-2024 Bacteria LM.HPF (Urine sed) [#/Area] Negative Normal Negative [facility] Comment on above: Order Comment: Speci men Type: URINE SPECIMENOrdering Facility: [facility] Address: [address] [place] [address] Performed By: #### 2 4356-8 ####[facility] LABCLIA [id number] [place] [address] [place] Bilirubin Ql (U) Negative Normal Negative [facility] Comment on above: Order Comment: Speci men Type: URINE SPECIMENOrdering Facility: [facility] Address: [address] [place] [address] Performed By: #### 2 4356-8 ####[facility] LABCLIA [id number] [place] [address] [place] Clarity (Unsp spec) Clear Normal Clear [facility] Comment on above: Order Comment: Speci men Type: URINE SPECIMENOrdering Facility: [facility] Address: [address] [place] [address] Performed By: #### 2 4356-8 ####[facility] LABCLIA [id number] [place] [address] [place] Color (U) Yellow Normal Yellow [facility] Comment on above: Order Comment: Speci men Type: URINE SPECIMENOrdering Facility: [facility] Address: [address] [place] [address] Performed By: #### 2 4356-8 ####[facility] LABCLIA [id number] [place] [address] [place] Epithelial cells LM.HPF (Urine sed) [#/Area] None Seen Normal [facility] Comment on above: Order Comment: Speci men Type: URINE SPECIMENOrdering Facility: [facility] Address: [address] [place] [address] Performed By: #### 2 4356-8 ####[facility] LABCLIA [id number] [place] [id number] [place] Glucose Test strip (U) [Mass/Vol] Negative Normal Negative [facility] Comment on above: Order Comment: Speci men Type: URINE SPECIMENOrdering Facility: [facility] Address: [address] [place] [address] Performed By: #### 2 4356-8 ####[facility] LABCLIA [id number] [employer] [address], [facility] [place] Hemoglobin Ql (U) Negative Normal Negative [facility] Comment on above: Order Comment: Speci men Type: URINE SPECIMENOrdering Facility: [facility] Address: [address] [place] [address] Performed By: #### 2 4356-8 ####[facility] LABCLIA [id number] [address], [place] [address] [place] Hyaline casts (Urine sed) [#/Area] 0 /[LPF] Normal 0 /LPF [facility] Comment on above: Order Comment: Speci men Type: URINE SPECIMENOrdering Facility: [facility] Address: [address] [place] [address] Performed By: #### 2 4356-8 ####[facility] LABCLIA [id number] [address], [place] [address] [place] Ketones Ql (U) Negative Normal Negative [facility] Comment on above: Order Comment: Speci men Type: URINE SPECIMENOrdering Facility: [facility] Address: [address] [place] [address] Performed By: #### 2 4356-8 ####[facility] LABCLIA [id number] [address], [place] [address] [place] Leukocyte esterase Test strip Ql (U) Negative Normal Negative [facility] Comment on above: Order Comment: Speci men Type: URINE SPECIMENOrdering Facility: [facility] Address: [address] [place] [address] Performed By: #### 2 4356-8 ####[facility] LABCLIA [id number] [address], [facility] [place] Nitrite Ql (U) Negative Normal Negative [facility] Comment on above: Order Comment: Speci men Type: URINE SPECIMENOrdering Facility: [facility] [facility] Address: [address] [place] [address] Performed By: #### 2 4356-8 ####[facility] LABCLIA [id number] [place] [address] [place] pH (U) 6.5 [pH] Normal <8.5 [facility] Comment on above: Order Comment: Speci men Type: URINE SPECIMENOrdering Facility: [facility] Address: [address] [place] [address] Performed By: #### 2 4356-8 ####[facility] LABIA [id number] [place] [address] [place] Protein (U) [Mass/Vol] Negative Normal Negative [facility] Comment on above: Order Comment: Speci men Type: URINE SPECIMENOrdering Facility: [facility] Address: [address] [place] [address] Performed By: #### 2 4356-8 ####[facility] LABIA [id number] [place] [address] [place] RBC LM.HPF (Urine sed) [#/Area] 0-2 /HPF Normal 0-2 /HPF [facility] Comment on above: Order Comment: Speci men Type: URINE SPECIMENOrdering Facility: [facility] Address: [address] [place] [address] Performed By: #### 2 4356-8 ####[facility] LABIA [id number] [place] [address] [place] Specific gravity (U) [Rel density] 1.009 Normal 1.005-1.030 [facility] Comment on above: Order Comment: Speci men Type: URINE SPECIMENOrdering Facility: [facility] Address: [address] [place] [address] Performed By: #### 2 4356-8 ####[facility] LABIA [id number] [place] [id number] [place] Urobilinogen Ql (U) 0.2 EU/dL Normal 0.2-1.0 EU/dL [facility] Comment on above: Order Comment: Speci men Type: URINE SPECIMENOrdering Facility: [facility] Address: [address] [place] [address] Performed By: #### 2 4356-8 ####[facility] LABIA [id number] [place] [address] [place] WBC LM.HPF (Urine sed) [#/Area] 0-5 /HPF Normal 0-5 /HPF [facility] Comment on above: Order Comment: Speci men Type: URINE SPECIMENOrdering Facility: [facility] Address: [address] [place] [address] Performed By: #### 2 4356-8 ####[facility] LABIA [id number] [place] [address] [place] Bilirub Conj SerPl-mCncon Bilirubin.conjugated [Mass/Vol] 0.1 mg/dL Normal <0.3 [facility] Comment on above: Order Comment: Speci men Type: BLOOD SPECIMENOrdering Facility: [facility] Address: [address] [place] [address] Performed By: #### 1 5152-2, 80719-9 ####[facility] [id number] [place] [address] [place] CBC W Auto Differential pane l (Bld)on 05-05-2024 Basophils (Bld) [#/Vol] 0.04 10*3/uL Normal <0.11 [facility] Comment on above: Order Comment: Speci men Type: BLOOD SPECIMENOrdering Facility: [facility] Address: [address] [place] [address] Performed By: #### 5 7021-8 ####[facility] LABIA [id number] [place] [address] [place] Basophils/100 WBC (Bld) 0.3 % Normal [facility] Comment on above: Order Comment: Speci men Type: BLOOD SPECIMENOrdering Facility: [facility] Address: [address] [place] [address] Performed By: #### 5 7021-8 ####[facility] LABCLIA [id number] [place] [address] [place] Differential cell count method Nom (Bld) Auto Normal [facility] Comment on above: Order Comment: Speci men Type: BLOOD SPECIMENOrdering Facility: [facility] Address: [address] [place] [address] Performed By: #### 5 7021-8 ####[facility] LABCLIA [id number] [place] [address] [place] Eosinophils (Bld) [#/Vol] 0.33 10*3/uL Normal <0.46 [facility] Comment on above: Order Comment: Speci men Type: BLOOD SPECIMENOrdering Facility: [facility] Address: [address] [place] [address] Performed By: #### 5 7021-8 ####[facility] LABCLIA [id number] [place] [address] [place] Eosinophils/100 WBC (Bld) 2.6 % Normal [facility] Comment on above: Order Comment: Speci men Type: BLOOD SPECIMENOrdering Facility: [facility] Address: [address] [place] [address] Performed By: #### 5 7021-8 ####[facility] LABCLIA [id number] [place] [address] [place] Erythrocyte distribution width (RBC) [Ratio] 14.2 % Normal 11.5-15.0 [facility] Comment on above: Order Comment: Speci men Type: BLOOD SPECIMENOrdering Facility: [facility] Address: [address] [place] [address] Performed By: #### 5 7021-8 ####[facility] LABCLIA [id number] [place] [address] [place] Hematocrit (Bld) [Volume fraction] 39.8 % Normal 36.0-46.0 [facility] Comment on above: Order Comment: Speci men Type: BLOOD SPECIMENOrdering Facility: [facility] Address: [address] [place] [address] Performed By: #### 5 7021-8 ####[facility] LABIA [id number] [place] [address] [place] Hemoglobin (Bld) [Mass/Vol] 12.8 g/dL Normal 11.5-15.5 [facility] Comment on above: Order Comment: Speci men Type: BLOOD SPECIMENOrdering Facility: [facility] Address: [address] [place] [address] Performed By: #### 5 7021-8 ####[facility] LABIA [id number] [place] [address] [place] Immature granulocytes (Bld) [#/Vol] 0.07 10*3/uL Normal <0.10 [facility] Comment on above: Order Comment: Speci men Type: BLOOD SPECIMENOrdering Facility: [facility] Address: [address] [place] [address] Performed By: #### 5 7021-8 ####[facility] LABIA [id number] [place] [address] [place] Immature granulocytes/100 WBC (Bld) 0.6 % Normal [facility] Comment on above: Order Comment: Speci men Type: BLOOD SPECIMENOrdering Facility: [facility] Address: [address] [place] [address] Performed By: #### 5 7021-8 ####[facility] LABIA [id number] [place] [address] [place] Lymphocytes (Bld) [#/Vol] 3.90 10*3/uL Normal 1.00-4.00 [facility] Comment on above: Order Comment: Speci men Type: BLOOD SPECIMENOrdering Facility: [facility] Address: [address] [place] [address] Performed By: #### 5 7021-8 ####[facility] LABIA [id number] [place] [address] [place] Lymphocytes/100 WBC (Bld) 31.2 % Normal [facility] Comment on above: Order Comment: Speci men Type: BLOOD SPECIMENOrdering Facility: [facility] Address: [address] [place] [address] Performed By: #### 5 7021-8 ####[facility] [id number] [place] [address] [place] MCH (RBC) [Entitic mass] 29.0 pg Normal 26.0-34.0 [facility] Comment on above: Order Comment: Speci men Type: BLOOD SPECIMENOrdering Facility: [facility] Address: [address] [place] [address] Performed By: #### 5 7021-8 ####[facility] [id number] [place] [address] [place] MCHC (RBC) [Mass/Vol] 32.2 g/dL Normal 30.5-36.0 [facility] Comment on above: Order Comment: Speci men Type: BLOOD SPECIMENOrdering Facility: [facility] Address: [address] [place] [address] Performed By: #### 5 7021-8 ####[facility] [id number] [place] [address] [place] MCV (RBC) [Entitic vol] 90.2 fL Normal 80.0-100.0 [facility] Comment on above: Order Comment: Speci men Type: BLOOD SPECIMENOrdering Facility: [facility] Address: [address] [place] [address] Performed By: #### 5 7021-8 ####[facility] LABCLIA [id number] [employer] [address] [place] [address] [place] Monocytes (Bld) [#/Vol] 0.91 10*3/uL High <0.87 [facility] Comment on above: Order Comment: Speci men Type: BLOOD SPECIMENOrdering Facility: [facility] Address: [address] [place] [address] Performed By: #### 5 7021-8 ####[facility] LABCLIA [id number] [address], [facility] [place] Monocytes/100 WBC (Bld) 7.3 % Normal [facility] Comment on above: Order Comment: Speci men Type: BLOOD SPECIMENOrdering Facility: [facility] Address: [address] [place] [address] Performed By: #### 5 7021-8 ####[facility] LABCLIA [id number] [place] [address] [place] Neutrophils (Bld) [#/Vol] 7.24 10*3/uL Normal 1.45-7.50 [facility] Comment on above: Order Comment: Speci men Type: BLOOD SPECIMENOrdering Facility: [facility] Address: [address] [place] [address] Performed By: #### 5 7021-8 ####[facility] LABCLIA [id number] [place] [id number] [place] Neutrophils/100 WBC (Bld) 58.0 % Normal [facility] Comment on above: Order Comment: Speci men Type: BLOOD SPECIMENOrdering Facility: [facility] Address: [address] [place] [address] Performed By: #### 5 7021-8 ####[facility] LABCLIA [id number] [address], [facility] [place] Nucleated RBC (Bld) [#/Vol] 10*3/uL Normal <0.01 [facility] Comment on above: Order Comment: Speci men Type: BLOOD SPECIMENOrdering Facility: [facility] Address: [address] [place] [address] Performed By: #### 5 7021-8 ####[facility] LABCLIA [id number] [address] [address] [place] Nucleated RBC/100 WBC (Bld) [Ratio] 0.0 /100 WBC Normal [facility] Comment on above: Order Comment: Speci men Type: BLOOD SPECIMENOrdering Facility: [facility] Address: [address] [place] [address] Performed By: #### 5 7021-8 ####[facility] LABCLIA [id number] [place] [address] [place] Platelet mean volume (Bld) [Entitic vol] 8.2 fL Low 9.0-12.7 [facility] Comment on above: Order Comment: Speci men Type: BLOOD SPECIMENOrdering Facility: [facility] Address: [address] [place] [address] Performed By: #### 5 7021-8 ####[facility] LABIA [id number] [place] [address] [place] Platelets (Bld) [#/Vol] 556 10*3/uL High 150-400 [facility] Comment on above: Order Comment: Speci men Type: BLOOD SPECIMENOrdering Facility: [facility] Address: [address] [place] [address] Performed By: #### 5 7021-8 ####[facility] LABIA [id number] [place] [id number] [place] RBC (Bld) [#/Vol] 4.41 10*6/uL Normal 3.90-5.20 [facility] Comment on above: Order Comment: Speci men Type: BLOOD SPECIMENOrdering Facility: [facility] Address: [address] [place] [id number] Performed By: #### 5 7021-8 ####[facility] [id number] [place] [address] [place] WBC (Bld) [#/Vol] 12.49 10*3/uL High 3.70-11.00 [facility] Comment on above: Order Comment: Speci men Type: BLOOD SPECIMENOrdering Facility: [facility] Address: [address] [place] [id number] Performed By: #### 5 7021-8 ####[facility] LABIA [id number] [place] [id number] [facility] [place] CNOVon 05-05-2024 CNOV Office Visit (NUMBHT ) -- SHAHEED JACKSON ([id number]) 4 F Date Time Provider Department 05/05/24 11:15 AM SOTO PALACIOS During your visit today, we recorded the following information about you: Temperature Pulse Blood pressure Weight 99 degrees 101/minute 128/88 121.2 kg Last Period 04/07/24 Soto Palacios APRN.CRITICAL CARE EDUCATOR 05/05/2024 11:23 AM Addendum Start Topamax 25 mg at bedtime for headache prevention Can continue Excedrin, but limit to 2 times a week Medrol dose pack to break headache cycle MRI Brain MRA Brain MRV Brain Potassium level 2 weeks after starting Topamax Will see senior financial reporting analyst in May Follow up in 8 weeks or sooner if symptoms persist Topamax Dosing Schedule Take at bedtime Increase dose every 2 weeks until goal dose of 100 mg Stop at any dose that reasonably treats headache Week 1-2: 25 mg each evening (1 tab) Week 3-4: 50 mg each evening (2 tabs) Week 5-6: 75 mg each evening (3 tabs) 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 I also discussed potential teratogenic effect such as cleft lip and palate. A drug-drug interaction with oral contraceptives especially at higher doses (>200 mg/day) as it decrease plasma levels of hormonal contraceptives and reduce its effectiveness, leading to breakthrough bleeding and contraceptive failure If you develop numbness and tinglng , buy Potassium 99 mg over the counter and take 1 or 2 per day Headache Preventive Treatment: Please keep in mind that it takes 4-6 weeks for the medication to start working well and 2-3 months at the appropriate dose before deciding if it will be useful or not. If it is not helping at all by this time, then we will discuss other medications to try. Supplements may take 3-6 months until you see full effect. Natural supplements: Magnesium Oxide 500 mg at bed Coenzyme Q10 300 mg in AM Vitamin B2- 200 mg twice a day Feverfew 50 mg twice a day Add only 1 supplement at a time since even natural supplements can have undesirable side effects. You can sometimes buy supplements cheaper (especially Coenzyme Q10) at www.[employer] or at [employer]. Vitamins and herbs that show potential Magnesium: Magnesium (250 mg twice a day or 500 mg at bed) has a relaxant effect on smooth muscles such as blood vessels. Individuals suffering from frequent or daily headache usually have low magnesium levels which can be increase with daily supplementation of 400-750 mg. Three trials found 40-90% average headache reduction when used as a preventative. Magnesium also demonstrated the benefit in menstrually related migraine. Magnesium is part of the messenger system in the serotonin cascade and it is a good muscle relaxant. It is also useful for constipation which can be a side effect of other medications used to treat migraine. Good sources include nuts, whole grains, and tomatoes. Magnesium comes in many different forms: Magnesium glycinate is a good choice for those with a sensitive stomach who have gastrointestinal side effects such as diarrhea with other forms of magnesium. It is anecdotally also helpful with anxiety and sleep. Magnesium threonate also has low risk of gastrointestinal side effects and anecdotally helpful with cognitive function and brain fog symptoms. Magnesium malate has low gastrointestinal side effects and is reportedly more energizing and anecdotally often helpful in fibromyalgia and chronic fatigue syndrome. Magnesium citrate is one of the most studied, popular, and well-absorbed forms of magnesium. It can also be mixed easily with liquids if you can't take pills. However, it comes with a higher risk of diarrhea and gastrointestinal side effects, although this could be helpful for those with constipation. Magnesium oxide is also well studied, cheap, and often used for heartburn and indigestion. However, it is not well absorbed and can have some laxative side effects as well, so can also be helpful for constipation. Riboflavin (vitamin B 2) 200 mg twice a day. This vitamin assists nerve cells in the production of ATP a principal energy storing molecule. It is necessary for many chemical reactions in the body. There have been at least 3 clinical trials of riboflavin using 400 mg per day all of which suggested that migraine frequency can be decreased. All 3 trials showed significant improvement in over half of migraine sufferers. The supplement is found in bread, cereal, milk, meat, and poultry. Most Americans get more riboflavin than the recommended daily allowance, however riboflavin deficiency is not necessary fo (more content not included)... Normal [facility] Comprehensive metabolic 2000 panelon 05-05-2024 Albumin [Mass/Vol] 4.7 g/dL Normal 3.9-4.9 [facility] Comment on above: Order Comment: Speci men Type: BLOOD SPECIMENOrdering Facility: [facility] Address: [address] [place] [address] Performed By: #### 1 5152-2, 08380-8 ####[facility] LABIA [id number] [place] [address] [place] ALP [Catalytic activity/Vol] 52 U/L Normal 34-123 [facility] Comment on above: Order Comment: Speci men Type: BLOOD SPECIMENOrdering Facility: [facility] Address: [address] [place] [address] Performed By: #### 1 5152-2, 92718-3 ####[facility] LABCLIA [id number] [address] [place] [address] [place] ALT [Catalytic activity/Vol] 65 U/L High 7-38 [facility] Comment on above: Order Comment: Speci men Type: BLOOD SPECIMENOrdering Facility: [facility] Address: [address] [place] [address] Performed By: #### 1 5152-2, ####[facility] LABCLIA [id number] [facility] [address] [place] [address] [place] Anion gap [Moles/Vol] 13 mmol/L Normal 8-15 [facility] Comment on above: Order Comment: Speci men Type: BLOOD SPECIMENOrdering Facility: [facility] Address: [address] [place] [address] Performed By: #### 1 5152-2, ####[facility] LABCLIA [id number] [address], [facility] [place] AST [Catalytic activity/Vol] 38 U/L High 13-35 [facility] Comment on above: Order Comment: Speci men Type: BLOOD SPECIMENOrdering Facility: [facility] Address: [address] [place] [address] Performed By: #### 1 5152-2, 94420-2 ####[facility] LABCLIA [id number] [facility] [address] [place] [address] [place] Bilirubin [Mass/Vol] 0.3 mg/dL Normal 0.2-1.3 [facility] Comment on above: Order Comment: Speci men Type: BLOOD SPECIMENOrdering Facility: [facility] Address: [address] [place], [place] [address] Performed By: #### 1 5152-2, ####[facility] LABCLIA [id number] [facility] [address] [place] [address] [place] Calcium [Mass/Vol] 10.5 mg/dL High 8.5-10.2 [facility] Comment on above: Order Comment: Speci men Type: BLOOD SPECIMENOrdering Facility: [facility] Address: [address] [place] [address] Performed By: #### 1 5152-2, 38109-6 ####[facility] LABCLIA [id number] [address] [address] [place] Chloride [Moles/Vol] 100 mmol/L Normal 98-107 [facility] Comment on above: Order Comment: Speci men Type: BLOOD SPECIMENOrdering Facility: [facility] Address: [address] [place] [address] Performed By: #### 1 5152-2, ####[facility] LABCLIA [id number] [place] [address] [place] CO2 [Moles/Vol] 24 mmol/L Normal 22-30 [facility] Comment on above: Order Comment: Speci men Type: BLOOD SPECIMENOrdering Facility: [facility] Address: [address] [place] [address] Performed By: #### 1 5152-2, 79287-5 ####[facility] LABIA [id number] [place] [address] [place] Creatinine [Mass/Vol] 0.58 mg/dL Normal 0.58-0.96 [facility] Comment on above: Order Comment: Speci men Type: BLOOD SPECIMENOrdering Facility: [facility] Address: [address] [place] [address] Performed By: #### 1 5152-2, 84721-0 ####[facility] LABIA [id number] [place] [id number] [place] Creatinine and Glomerular filtration rate.predicted panel (S/P/Bld) 132 mL/min/1.73m??? Normal >=60 [facility] Comment on above: Order Comment: Speci men Type: BLOOD SPECIMENOrdering Facility: [facility] Address: [address] [place] [address] Result Comment: Emi mated Glomerular Filtration Rate (eGFR) is calculated using the 2020 CKD-EPI creatinine equation. This equation utilizes serum creatinine, sex, and age as parameters. The creatinine assay has traceable calibration to isotope dilution-mass spectrometry. Refer to KDIGO guidelines for clinical interpretation. In patients with unstable renal function, e.g. those with acute kidney injury, the eGFR may not accurately reflect actual GFR. Performed By: #### 1 5152-2, 54733-2 ####[facility] LABIA [id number] [place] [id number] [place] Glucose [Mass/Vol] 84 mg/dL Normal 74-99 [facility] Comment on above: Order Comment: Chavez vargas Type: BLOOD SPECIMENOrdering Facility: [facility] Address: [address] [place] [address] Result Comment: The [place] Diabetes Association (ADA) provides guidance for cutoff values for fasting glucose and random glucose. The ADA defines fasting as no caloric intake for at least 8 hours. Fasting plasma glucose results between 100 to 125 mg/dL indicate increased risk for diabetes (prediabetes). Fasting plasma glucose results greater than or equal to 126 mg/dL meet the criteria for diagnosis of diabetes. In the absence of unequivocal hyperglycemia, results should be confirmed by repeat testing. In a patient with classic symptoms of hyperglycemia or hyperglycemic crisis, random plasma glucose results greater than or equal to 200 mg/dL meet the criteria for diagnosis of diabetes. Reference: Standards of Medical Care in Diabetes 2016, [place] [employer] Association. Diabetes Care. 2016.39(Suppl 1). Performed By: #### 1 5152-2, 88086-4 ####[facility] LABIA [id number] [place] [id number] [place] Potassium [Moles/Vol] 4.1 mmol/L Normal 3.7-5.1 [facility] Comment on above: Order Comment: Chavez vargas Type: BLOOD SPECIMENOrdering Facility: [facility] Address: [address] [place] [address] Performed By: #### 1 5152-2, 18722-6 ####[facility] LABCLIA [id number] [address] [address] [place] Protein [Mass/Vol] 7.9 g/dL Normal 6.3-8.0 [facility] Comment on above: Order Comment: Speci men Type: BLOOD SPECIMENOrdering Facility: [facility] Address: [address] [place] [address] Performed By: #### 1 5152-2, 04738-5 ####[facility] LABIA [id number] [address] [address] [place] Sodium [Moles/Vol] 137 mmol/L Normal 136-144 [facility] Comment on above: Order Comment: Speci men Type: BLOOD SPECIMENOrdering Facility: [facility] Address: [address] [place] [address] Performed By: #### 1 5152-2, 77283-3 ####[facility] LABIA [id number] [place] [id number] [place] Urea nitrogen [Mass/Vol] 9 mg/dL Normal 7-21 [facility] Comment on above: Order Comment: Speci men Type: BLOOD SPECIMENOrdering Facility: [facility] Address: [address] [place] [address] Performed By: #### 1 5152-2, 19805-9 ####[facility] LABIA [id number] [place] [id number] [place] HbA1c (Bld)on 05-05-2024 Average glucose Estimated from glycated hemoglobin (Bld) [Mass/Vol] 120 mg/dL Normal [facility] Comment on above: Order Comment: Speci men Type: BLOOD SPECIMENOrdering Facility: [facility] Address: [address] [place] [address] Result Comment: eAG: (Estimated average glucose) is a calculated value from HgbA1c and is automotive leasing sales representative of the average blood glucose level in the last 2-3 month period. Performed By: #### 5 5454-3 ####[facility] LABCLIA [id number] [address] [place] [address] [place] HbA1c (Bld) [Mass fraction] 5.8 % High 4.3-5.6 [facility] Comment on above: Order Comment: Speci men Type: BLOOD SPECIMENOrdering Facility: [facility] Address: [address] [place] [address] Result Comment: Amer [place] Diabetes Association guidelines indicate that patients with HgbA1c in the range 5.7-6.4% are at increased risk for development of diabetes, and intervention by lifestyle modification may be beneficial. HgbA1c greater or equal to 6.5% is considered diagnostic of diabetes. Performed By: #### 5 5454-3 ####[facility] LABCLIA [id number] [address] [place] [address] [place] Urinalysis complete panel (U )on 05-05-2024 BACTERIA UL 5114.8 uL High Negative [facility] Comment on above: Order Comment: Speci men Type: URINE SPECIMENOrdering Facility: [facility] Address: [address] [place] [address] Performed By: #### 2 4356-8 ####[facility] LABCLIA [id number] [address] [place] [address] [place] Bilirubin Ql (U) Negative Normal Negative [facility] Comment on above: Order Comment: Speci men Type: URINE SPECIMENOrdering Facility: [facility] Address: [address] [place] [address] Performed By: #### 2 4356-8 ####[facility] LABCLIA [id number] [place] [id number] [place] CALCIUM OXALATE CRYSTALS (UA) Few Abnormal None Seen [facility] Comment on above: Order Comment: Speci men Type: URINE SPECIMENOrdering Facility: [facility] Address: [address] [place] [address] Performed By: #### 2 4356-8 ####[facility] LABCLIA [id number] [place] [id number] [place] Clarity (Unsp spec) Turbid Abnormal Clear [facility] Comment on above: Order Comment: Speci men Type: URINE SPECIMENOrdering Facility: [facility] Address: [address] [place] [address] Performed By: #### 2 4356-8 ####[facility] LABCLIA [id number] [place] [address] [place] Color (U) Dark Yellow Abnormal Yellow [facility] Comment on above: Order Comment: Speci men Type: URINE SPECIMENOrdering Facility: [facility] Address: [address] [place] [address] Performed By: #### 2 4356-8 ####[facility] LABCLIA [id number] [place] [address] [place] Epithelial cells LM.HPF (Urine sed) [#/Area] Moderate Normal [facility] Comment on above: Order Comment: Speci men Type: URINE SPECIMENOrdering Facility: [facility] Address: [address] [place] [address] Performed By: #### 2 4356-8 ####[facility] LABCLIA [id number] [place] [address] [place] Glucose Test strip (U) [Mass/Vol] Negative Normal Negative [facility] Comment on above: Order Comment: Speci men Type: URINE SPECIMENOrdering Facility: [facility] Address: [address] [place] [address] Performed By: #### 2 4356-8 ####[facility] LABCLIA [id number] [place] [address] [place] Hemoglobin Ql (U) Negative Normal Negative [facility] Comment on above: Order Comment: Speci men Type: URINE SPECIMENOrdering Facility: [facility] Address: [address] [place] [address] Performed By: #### 2 4356-8 ####[facility] LABCLIA [id number] [address], [facility] [place] Hyaline casts (Urine sed) [#/Area] 0 /[LPF] Normal 0 /LPF [facility] Comment on above: Order Comment: Speci men Type: URINE SPECIMENOrdering Facility: [facility] Address: [address] [place] [address] Performed By: #### 2 4356-8 ####[facility] LABCLIA [id number] [address], [place] [address] [place] Ketones Ql (U) Negative Normal Negative [facility] Comment on above: Order Comment: Speci men Type: URINE SPECIMENOrdering Facility: [facility] Address: [address] [place] [address] Performed By: #### 2 4356-8 ####[facility] LABCLIA [id number] [address], [place] [address] [place] Leukocyte esterase Test strip Ql (U) Negative Normal Negative [facility] Comment on above: Order Comment: Speci men Type: URINE SPECIMENOrdering Facility: [facility] Address: [address] [place] [address] Performed By: #### 2 4356-8 ####[facility] LABCLIA [id number] [place] [id number] [place] Nitrite Ql (U) Negative Normal Negative [facility] Comment on above: Order Comment: Speci men Type: URINE SPECIMENOrdering Facility: [facility] Address: [address] [place] [address] Performed By: #### 2 4356-8 ####[facility] LABCLIA [id number] [address], [facility] [place] pH (U) 6.5 [pH] Normal <8.5 [facility] Comment on above: Order Comment: Speci men Type: URINE SPECIMENOrdering Facility: [facility] Address: [address] [place] [address] Performed By: #### 2 4356-8 ####[facility] LABCLIA [id number] [place] [address] [place] Protein (U) [Mass/Vol] Trace Abnormal Negative [facility] Comment on above: Order Comment: Speci men Type: URINE SPECIMENOrdering Facility: [facility] Address: [address] [place] [address] Performed By: #### 2 4356-8 ####[facility] LABIA [id number] [place] [address] [place] RBC LM.HPF (Urine sed) [#/Area] 3-5 /HPF Abnormal 0-2 /HPF [facility] Comment on above: Order Comment: Speci men Type: URINE SPECIMENOrdering Facility: [facility] Address: [address] [place] [address] Performed By: #### 2 4356-8 ####[facility] LABIA [id number] [place] [address] [place] Specific gravity (U) [Rel density] 1.023 Normal 1.005-1.030 [facility] Comment on above: Order Comment: Speci men Type: URINE SPECIMENOrdering Facility: [facility] Address: [address] [place] [address] Performed By: #### 2 4356-8 ####[facility] LABIA [id number] [place] [address] [place] Urobilinogen Ql (U) 0.2 EU/dL Normal 0.2-1.0 EU/dL [facility] Comment on above: Order Comment: Speci men Type: URINE SPECIMENOrdering Facility: [facility] Address: [address] [place] [address] Performed By: #### 2 4356-8 ####[facility] LABCLIA [id number] [address] [place] WBC LM.HPF (Urine sed) [#/Area] 0-5 /HPF Normal 0-5 /HPF [facility] Comment on above: Order Comment: Speci men Type: URINE SPECIMENOrdering Facility: [facility] Address: [address] [place] [address] Performed By: #### 2 4356-8 ####[facility] LABIA [id number] [address] [place] CBC W/DIFF/PLT (EXTERNAL LAB SRAVANI)on 03-31-2024 BASO ABSOLUTE 45 [facility] Basophils/100 WBC (Bld) 0.4 % [facility] EOS ABSOLUTE 316 [facility] Eosinophils/100 WBC (Bld) 2.8 % [facility] Erythrocyte distribution width (RBC) [Ratio] 13.9 % 11.0 - 15.0 % [facility] Hematocrit (Bld) [Volume fraction] 37.1 % 35.0 - 45.0 % [facility] Hemoglobin (Bld) [Mass/Vol] 12.3 g/dL 11.7 - 15.5 g/dL [facility] Lymphocytes/100 WBC (Bld) 28.8 % [facility] LYMPHS ABSOLUTE 3254 [facility] MCH 29.3 Pg 27.0 - 33.0 Pg [facility] MCHC (RBC) [Mass/Vol] 33.2 g/dL 32.0 - 36.0 g/dL [facility] MCV (RBC) [Entitic vol] 88.3 fL 80.0 - 100.0 fL [facility] MONOCYTES ABSOLUTE 780 [facility] Monocytes/100 WBC (Bld) 6.9 % [facility] NEUTROPHILS ABSOLUTE 6904 [facility] Neutrophils/100 WBC (Bld) 61.1 % [facility] Platelet mean volume (Bld) [Entitic vol] 8.3 fL 7.5 - 12.5 fL [facility] Platelets (Bld) [#/Vol] 501 10*3/uL Abnormal [facility] RBC (Bld) [#/Vol] 4.2 10*6/uL [facility] WBC (Bld) [#/Vol] 11.3 10*3/uL Abnormal 3.8 - 10.8 K/uL [facility] CMP (EXTERNAL)on 03-31-2024 Albumin [Mass/Vol] 4.8 g/dL [facility] Albumin/Globulin [Mass ratio] 1.8 {ratio} 1.0 - 2.5 [facility] Alk Phos Total 41 U/L 31 - 125 U/L [facility] ALT [Catalytic activity/Vol] 45 U/L Abnormal 6 - 29 U/L [facility] AST [Catalytic activity/Vol] 28 U/L 10 - 30 U/L [facility] Bili Total 0.4 mg/dL 0.2 - 1.2 mg/dL [facility] Calcium [Mass/Vol] 10.6 mg/dL Abnormal 8.6 - 10. 2 mg/dL [facility] Chloride [Moles/Vol] 98 mmol/L [facility] CO2 [Moles/Vol] 27 mmol/L [facility] Creatinine [Mass/Vol] 0.58 mg/dL [facility] GFR [facility] GFR AFR AMER [facility] Globulin (S) [Mass/Vol] 2.6 g/dL 1.9 - 3.7 g/dL [facility] Glucose [Mass/Vol] 78 mg/[facility] Potassium [Moles/Vol] 4.2 mmol/L 3.5 - 5.3 mmol/L [facility] Protein [Mass/Vol] 7.4 g/dL [facility] Sodium [Moles/Vol] 135 mmol/L 135 - 146 mmol/L [facility] Urea nitrogen [Mass/Vol] 10 mg/dL [facility] CNPNon 03-31-2024 [facility] SHAHEED JACKSON ([id number]) 4 F Date Time Provider Department 03/31/24 LARA JIMENEZ During your visit today, we recorded the following information about you: Lara Jimenez PA-C 03/31/2024 12:43 PM Signed Let patient know that her A1c is 6.1%. definitely start working on diet again and discuss more at visit with Dr. Grimm next month. Calcium is 10.3. recheck in a couple weeks. Order placed. Her one liver enzyme is a little elevated. Unclear the cause at this time. So will recheck in 2 weeks to trend as well. Most of these are findings that she has had in the past. So I just want to trend things to make sure not continuing to elevate. Dr. Grimm can go into more detail at visit. VALENCIA Ceja Sherill A, LPN 03/31/2024 2:12 PM Signed Left message for pt to contact office. HEBER Downs Laurie Lynn, LPN 04/01/2024 4:38 PM Signed Patient notified with results. Patient verbalizes understanding. HEBER Kirk Krystle, RN 04/20/2024 11:47 AM Signed Patient calls to request follow up lab orders be faxed to [place] [address] at [phone]. Faxed per request. Afsaneh Carter RN Allergies As of Date: 03/31/2024 (No Known Allergies) Date Reviewed: 11/07/2023 Reviewed by: Kenya Concepcion LPN - Fully Assessed Reason for Visit: Results [95] Primary Visit Diagnosis:Elevated LFTs [R79.89] Other Visit Diagnoses:Hypercalcemia [E83.52] Thrombocytosis [D75.839] Order(s):HEPATIC FUNCTION PNL [SQHFP] Order #: [id number] FUTURE CALCIUM, TOTAL [SQCA] Order #: [id number] FUTURE Prescriptions as of 04/20/2024 - propranolol (INDERAL) 10 mg tablet Take 10 mg by mouth. As needed - CRANBERRY ORAL Take by mouth once daily. - venlafaxine ER (EFFEXOR XR) 75 mg 24 hr capsule Take 1 capsule by mouth once daily. Take with the 150mg capsule for total daily dose of 225mg. - venlafaxine ER (EFFEXOR XR) 150 mg 24 hr capsule Take 1 capsule by mouth once daily. Take with the 75mg capsule for total daily dose of 225mg. - buPROPion XL (WELLBUTRIN XL) 300 mg 24 hr tablet Take 1 tablet by mouth once daily. - flaxseed oil (OMEGA 3 ORAL) Take by mouth as directed. - CPAP/BIPAP/OTHER autoCPAP 8-10 cmH2O [facility] - acetaminophen 325 mg cap Take by mouth. - cetirizine (ZYRTEC) 10 mg tablet Take 1 tablet by mouth once daily. - Ibuprofen 200 mg cap Take by mouth every 4 hours as needed. FOR PAIN. 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] 09/30/2018 Class 2 obesity due to excess calories without * Pseudotumor cerebri [G93.2] 07/04/2021 Major depressive disorder with single episode [*05/02/2022 PANCHO (generalized anxiety disorder) [F41.1] 05/02/2022 Encounter for screening for diabetes mellitus [*05/02/2022 Elevated hemoglobin A1c [R73.09] 05/03/2022 Hyperlipidemia, mixed [E78.2] 05/03/2022 Hypercalcemia [E83.52] 05/03/2022 Elevated LFTs [R79.89] 05/03/2022 Thrombocytosis [D75.839] 05/03/2022 Encounter Status:Closed by ROCIO MENJIVAR on 04/01/24 Normal [facility] HBA1C (OUTSIDE)on 03-31-2024 HbA1c (Bld) [Mass fraction] 6.1 % Abnormal - 5.7 % [facility] No Panel Informationon 03-31 Interpretation and review of laboratory results Abnormal [facility] UA WITH MICROSCOPIC (FOR REM OTE [facility] USE)on 03-31-2024 Appearance (U) Clear [facility] Bacteria Few none sceen [facility] Bilirubin Ql (U) Negative Neg [facility] Color (U) Yellow [facility] Epithelial cells LM.HPF (Urine sed) [#/Area] -5 /[HPF] /HPF [facility] Glucose [Mass/Vol] Negative Neg [facility] Hyaline Cast None sceen [facility] Ketones Ql (U) Negative Neg [facility] Leuk Esterase Negative NEG [facility] Nitrites,UR Negative Negative [facility] Occult Blood Negative Negative [facility] pH,UR 7.5 5.0 - 8.0 [facility] Protein Ql (U) Negative Negative - Trace [facility] RBC None seen [facility] Spec. Grav. 1.011 1.001 - 1.035 [facility] WBC None seen [facility] CNPNon 01-29-2024 CNPN Telephone ([facility]) -- SHAHEED JACKSON ([id number]) 4 F Date Time Provider Department 01/29/24 [facility] your visit today, we recorded the following information about you: Parisa Jasso LPN 01/29/2024 8:41 AM Signed Received vis [employer]xa Medical Clearance form for Atomoxetine Medication. Form on your desk for completion. Fax back to [phone]. HEBRE Downs Jeffrey A, MD 01/30/2024 3:07 PM Signed Patient sees Neuro for her pseudotumor Cerebri and Psych will rochelle to get input from Dr. Andrew. Please fax back form stating this. Alix Smith LPN 01/30/2024 3:17 PM Signed Form faxed to [phone] with confirmation received. Alix Smith LPN Allergies As of Date: 01/29/2024 (No Known Allergies) Date Reviewed: 11/07/2023 Reviewed by: Kenya Concepcion LPN - Fully Assessed Reason for Visit: Medication Clearance Form [Other] Prescriptions as of 01/30/2024 - CRANBERRY ORAL Take by mouth once daily. - venlafaxine ER (EFFEXOR XR) 75 mg 24 hr capsule Take 1 capsule by mouth once daily. Take with the 150mg capsule for total daily dose of 225mg. - venlafaxine ER (EFFEXOR XR) 150 mg 24 hr capsule Take 1 capsule by mouth once daily. Take with the 75mg capsule for total daily dose of 225mg. - buPROPion XL (WELLBUTRIN XL) 300 mg 24 hr tablet Take 1 tablet by mouth once daily. - flaxseed oil (OMEGA 3 ORAL) Take by mouth as directed. - BENEFIBER, WHEAT DEXTRIN, ORAL Take by mouth. - medical supply, miscellaneous (MISCELLANEOUS MEDICAL SUPPLY MISC) 2 tablets once daily. Obvi collagenic burn - aspirin/acetaminophen/caff eine (EXCEDRIN MIGRAINE ORAL) Take 1 tablet by mouth once daily. Drug free head care - CPAP/BIPAP/OTHER autoCPAP 8-10 cmH2O [facility] - acetaminophen 325 mg cap Take by mouth. - cetirizine (ZYRTEC) 10 mg tablet Take 1 tablet by mouth once daily. - Ibuprofen 200 mg cap Take by mouth every 4 hours as needed. FOR PAIN. 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] 09/30/2018 Class 2 obesity due to excess calories without * Pseudotumor cerebri [G93.2] 07/04/2021 Major depressive disorder with single episode [*05/02/2022 PANCHO (generalized anxiety disorder) [F41.1] 05/02/2022 Encounter for screening for diabetes mellitus [*05/02/2022 Elevated hemoglobin A1c [R73.09] 05/03/2022 Hyperlipidemia, mixed [E78.2] 05/03/2022 Hypercalcemia [E83.52] 05/03/2022 Elevated LFTs [R79.89] 05/03/2022 Thrombocytosis [D75.839] 05/03/2022 Encounter Status:Closed by ALIX SMITH on 01/30/24 [facility] Cerv[facility] AP and Lat eral and obliqueon 08-15-2023 IMPRESSION: Straight ening of the cervical spine curvature. Business Information Analyst: SCOTTY Transcribe Date/Time: Aug 15 2023 3:04P Dictated by : CHANO PINEDA MD This examination was interpreted and the report reviewed and electronically signed by: CHANO PINEDA MD on Aug 15 2023 3:05PM [facility] DIVISION OF RADIOLOGY * * *Final Report* * * DATE OF EXAM: Aug 15 2023 2:34PM WOX 5311 - XR CERVICAL 4V AP/LAT/OBL / PROCEDURE REASON: multiple diagnoses * * * * Physician Interpretation * * * * EXAM TITLE: XR CERVICAL 4V AP/LAT/OBL EXAM DATE/TIME: 08/15/2023 2:34 PM COMPARISON: None. CLINICAL INDICATION/HISTORY: Neck pain TECHNIQUE: AP, lateral and oblique views of the cervical spine are presented. FINDINGS: No fractures or subluxations are noted. There is straightening of the cervical spine curvature. The disc spaces are well preserved. There is no significant osteophyte formation. The neural foramina are patent. The prevertebral soft tissues are normal. DIVISION OF RADIOLOGY [facility] * * *Final Report* * * DATE OF EXAM: Aug 15 2023 2:34PM WOX 5311 - XR CERVICAL 4V AP/LAT/OBL / PROCEDURE REASON: multiple diagnoses * * * * Physician Interpretation * * * * EXAM TITLE: XR CERVICAL 4V AP/LAT/OBL EXAM DATE/TIME: 08/15/2023 2:34 PM COMPARISON: None. CLINICAL INDICATION/HISTORY: Neck pain TECHNIQUE: AP, lateral and oblique views of the cervical spine are presented. FINDINGS: No fractures or subluxations are noted. There is straightening of the cervical spine curvature. The disc spaces are well preserved. There is no significant osteophyte formation. The neural foramina are patent. The prevertebral soft tissues are normal. IMPRESSION IMPRESSION: Straightening of the cervical spine curvature. Business Information Analyst: SCOTTY Transcribe Date/Time: Aug 15 2023 3:04P Dictated by : CHANO PINEDA MD This examination was interpreted and the report reviewed and electronically signed by: CHANO PINEDA MD on Aug 15 2023 3:05PM [facility] Radiology Study observation (narrative) [facility] XR Cervical spine AP and Lat eral and obliqueOrdered By: Ccf Provider on 08-15-2023 [facility] Comprehensive metabolic 2000 panelon 01-24-2023 Albumin [Mass/Vol] 4.4 g/dL 3.9 - 4.9 g/dL [facility] ALP [Catalytic activity/Vol] 56 U/L 34 - 123 U/L [facility] ALT [Catalytic activity/Vol] 31 U/L 7 - 38 U/L [facility] Anion gap [Moles/Vol] 14 mmol/L 9 - 18 mmol/L [facility] AST [Catalytic activity/Vol] 21 U/L 13 - 35 U/L [facility] Bilirubin [Mass/Vol] 0.2 mg/dL 0.2 - 1 .3 mg/dL [facility] Calcium [Mass/Vol] 9.9 mg/dL 8.5 - 10. 2 mg/dL [facility] Chloride [Moles/Vol] 102 mmol/L 97 - 10 5 mmol/L [facility] CO2 [Moles/Vol] 24 mmol/L 22 - 30 mmol/L [facility] Creatinine [Mass/Vol] 0.76 mg/dL 0.58 - 0.96 mg/dL [facility] Estimated Glomerular Filtration Rate 115 mL/min/1.73m >=60 mL/min/1.73 m [facility] Glucose [Mass/Vol] 89 mg/dL 74 - 99 mg/dL [facility] Potassium [Moles/Vol] 4.6 mmol/L 3.7 - 5.1 mmol/L [facility] Protein [Mass/Vol] 7.1 g/dL 6.3 - 8.0 g/dL [facility] Sodium [Moles/Vol] 140 mmol/L 136 - 144 mmol/L [facility] Urea nitrogen [Mass/Vol] 10 mg/dL 7 - 21 mg/dL [facility] LIPID PANEL, NONFASTINGon Cholesterol [Mass/Vol] 198 mg/dL <200 mg/dL [facility] HDL Cholesterol, Nonfasting 29 mg/dL Low >39 mg/dL [facility] LDL Cholesterol, Nonfasting 94 mg/dL <100 mg/dL [facility] LDL/HDL Ratio, Nonfasting 3.24 mg/dL High <2.54 mg/dL [facility] Non HDL Cholesterol, Nonfasting 169 mg/dL High <130 mg/dL [facility] Total Chol/HDL Ratio, Nonfasting 6.83 mg/dL High <5.10 mg/dL [facility] Triglycerides, Nonfasting 373 mg/dL High <150 mg/dL [facility] VLDL Cholesterol, Nonfasting 75 mg/dL High <30 mg/dL [facility] No Panel Informationon 12-[address] [facility] [address] BRAIN WO IVCONon 11-05-19 [facility] No Panel Informationon 10-22 IMPRESSION: No acute osseous abnormality right ankle and right foot. Probable mild pes planus. Correlate clinically. Business Information Analyst: SCOTTY Transcribe Date/Time: Oct 22 2022 5:56P Dictated by : RADHA ROYAL MD This examination was interpreted and the report reviewed and electronically signed by: RADHA ROYAL MD on Oct 22 2022 6:05PM [facility] DIVISION OF RADIOLOGY Radiology Study observation (narrative) [facility] No Panel InformationOrdered By: Ccf Provider on 10-22-2022 [facility] XR Ankle - right AP and Late ral and obliqueon 10-22-2022 * * *Final Report* * * DATE OF EXAM: Oct 22 2022 5:53PM WOX 5297 - XR ANKLE 3V AP/LAT/OBL RT / PROCEDURE REASON: Foot pain, right * * * * Physician Interpretation * * * * EXAMINATION: XR FOOT 3V AP/LAT/OBL RT, XR ANKLE 3V AP/LAT/OBL RT HISTORY: Anterior right ankle pain and dorsal right midfoot pain x 2 days after walking. No known injury. Foot pain, right . TECHNIQUE: XR FOOT 3V AP/LAT/OBL RT, XR ANKLE 3V AP/LAT/OBL RT Laterality: RIGHT Number of different views (projections): 3 M: XB_1 COMPARISON: Right tibia-fibula 11/01/2021 RESULT: Right ankle and right foot: 3 weightbearing ankle images and 2 of 3 weightbearing foot images as labeled. No identified acute osseous abnormality. Unremarkable soft tissue planes. Probable mild pes planus. No identified unanticipated acute finding on included views of the contralateral/left ankle and foot DIV[facility]Y [facility] * * *Final Report* * * DATE OF EXAM: Oct 22 2022 5:53PM WOX 5297 - XR ANKLE 3V AP/LAT/OBL RT / PROCEDURE REASON: Foot pain, right * * * * Physician Interpretation * * * * EXAMINATION: XR FOOT 3V AP/LAT/OBL RT, XR ANKLE 3V AP/LAT/OBL RT HISTORY: Anterior right ankle pain and dorsal right midfoot pain x 2 days after walking. No known injury. Foot pain, right . TECHNIQUE: XR FOOT 3V AP/LAT/OBL RT, XR ANKLE 3V AP/LAT/OBL RT Laterality: RIGHT Number of different views (projections): 3 M: XB_1 COMPARISON: Right tibia-fibula 11/01/2021 RESULT: Right ankle and right foot: 3 weightbearing ankle images and 2 of 3 weightbearing foot images as labeled. No identified acute osseous abnormality. Unremarkable soft tissue planes. Probable mild pes planus. No identified unanticipated acute finding on included views of the contralateral/left ankle and foot IMPRESSION IMPRESSION: No acute osseous abnormality right ankle and right foot. Probable mild pes planus. Correlate clinically. Business Information Analyst: PSCB Transcribe Date/Time: Oct 22 2022 5:56P Dictated by : RADHA ROYAL MD This examination was interpreted and the report reviewed and electronically signed by: RADHA ROYAL MD on Oct 22 2022 6:05PM [facility] XR Foot - right AP and Later al and obliqueon 10-22-2022 * * *Final Report* * * DATE OF EXAM: Oct 22 2022 5:53PM WOX 5337 - XR FOOT 3V AP/LAT/OBL RT / PROCEDURE REASON: Foot pain, right * * * * Physician Interpretation * * * * EXAMINATION: XR FOOT 3V AP/LAT/OBL RT, XR ANKLE 3V AP/LAT/OBL RT HISTORY: Anterior right ankle pain and dorsal right midfoot pain x 2 days after walking. No known injury. Foot pain, right . TECHNIQUE: XR FOOT 3V AP/LAT/OBL RT, XR ANKLE 3V AP/LAT/OBL RT Laterality: RIGHT Number of different views (projections): 3 M: XB_1 COMPARISON: Right tibia-fibula 11/01/2021 RESULT: Right ankle and right foot: 3 weightbearing ankle images and 2 of 3 weightbearing foot images as labeled. No identified acute osseous abnormality. Unremarkable soft tissue planes. Probable mild pes planus. No identified unanticipated acute finding on included views of the contralateral/left ankle and foot DIVISION OF RADIOLOGY Provider, Melina Lott - 10/22/2022 * * *Final Report* * * DATE OF EXAM: Oct 22 2022 5:53PM WOX 5337 - XR FOOT 3V AP/LAT/OBL RT / PROCEDURE REASON: Foot pain, right * * * * Physician Interpretation * * * * EXAMINATION: XR FOOT 3V AP/LAT/OBL RT, XR ANKLE 3V AP/LAT/OBL RT HISTORY: Anterior right ankle pain and dorsal right midfoot pain x 2 days after walking. No known injury. Foot pain, right . TECHNIQUE: XR FOOT 3V AP/LAT/OBL RT, XR ANKLE 3V AP/LAT/OBL RT Laterality: RIGHT Number of different views (projections): 3 M: XB_1 COMPARISON: Right tibia-fibula 11/01/2021 RESULT: Right ankle and right foot: 3 weightbearing ankle images and 2 of 3 weightbearing foot images as labeled. No identified acute osseous abnormality. Unremarkable soft tissue planes. Probable mild pes planus. No identified unanticipated acute finding on included views of the contralateral/left ankle and foot IMPRESSION IMPRESSION: No acute osseous abnormality right ankle and right foot. Probable mild pes planus. Correlate clinically. Business Information Analyst: SCOTTY Transcribe Date/Time: Oct 22 2022 5:56P Dictated by : RADHA ROYAL MD This examination was interpreted and the report reviewed and electronically signed by: RADHA ROYAL MD on Oct 22 2022 6:05PM EST [facility] CBC W Auto Differential pane l (Bld)on 05-02-2022 Basophils (Bld) [#/Vol] 0.06 10*3/uL <0.11 k/uL [facility] Basophils/100 WBC (Bld) 0.6 % [facility] Differential cell count method Nom (Bld) Auto [facility] Eosinophils (Bld) [#/Vol] 0.31 10*3/uL <0.46 k/uL [facility] Eosinophils/100 WBC (Bld) 2.9 % [facility] Erythrocyte distribution width (RBC) [Ratio] 14.6 % 11.5 - 15.0 % [facility] Hematocrit (Bld) [Volume fraction] 40.6 % 36.0 - 46.0 % [facility] Hemoglobin (Bld) [Mass/Vol] 13.0 g/dL 11.5 - 15.5 g/dL [facility] Immature granulocytes (Bld) [#/Vol] 0.07 10*3/uL <0.10 k/uL [facility] Immature granulocytes/100 WBC (Bld) 0.6 % [facility] Lymphocytes (Bld) [#/Vol] 2.95 10*3/uL 1.00 - 4.00 k/uL [facility] Lymphocytes/100 WBC (Bld) 27.2 % [facility] MCH (RBC) [Entitic mass] 28.9 pg 26.0 - 34.0 pg [facility] MCHC (RBC) [Mass/Vol] 32.0 g/dL 30.5 - 36.0 g/dL [facility] MCV (RBC) [Entitic vol] 90.2 fL 80.0 - 100.0 fL [facility] Monocytes (Bld) [#/Vol] 0.78 10*3/uL <0.87 k/uL [facility] Monocytes/100 WBC (Bld) 7.2 % [facility] Neutrophils (Bld) [#/Vol] 6.66 10*3/uL 1.45 - 7.50 k/uL [facility] Neutrophils/100 WBC (Bld) 61.5 % [facility] Nucleated RBC (Bld) [#/Vol] <0.01 k/uL [facility] Nucleated RBC/100 WBC (Bld) [Ratio] 0.0 /100 WBC [facility] Platelet mean volume (Bld) [Entitic vol] 8.3 fL Low 9.0 - 12.7 fL [facility] Platelets (Bld) [#/Vol] 501 10*3/uL High 150 - 400 k/uL [facility] RBC (Bld) [#/Vol] 4.50 10*6/uL 3.90 - 5.2 0 m/uL [facility] WBC (Bld) [#/Vol] 10.83 10*3/uL 3.70 - 11.00 k/uL [facility] Comprehensive metabolic 2000 panelon 05-02-2022 Albumin [Mass/Vol] 4.7 g/dL 3.9 - 4.9 g/dL [facility] ALP [Catalytic activity/Vol] 59 U/L 34 - 123 U/L [facility] ALT [Catalytic activity/Vol] 61 U/L High 7 - 38 U/L [facility] Anion gap [Moles/Vol] 11 mmol/L 9 - 18 mmol/L [facility] AST [Catalytic activity/Vol] 41 U/L High 13 - 35 U/L [facility] Bilirubin [Mass/Vol] 0.3 mg/dL 0.2 - 1 .3 mg/dL [facility] Calcium [Mass/Vol] 10.4 mg/dL High 8.5 - 10. 2 mg/dL [facility] Chloride [Moles/Vol] 102 mmol/L 97 - 10 5 mmol/L [facility] CO2 [Moles/Vol] 25 mmol/L 22 - 30 mmol/L [facility] Creatinine [Mass/Vol] 0.53 mg/dL Low 0.58 - 0.96 mg/dL [facility] Estimated Glomerular Filtration Rate 137 mL/min/1.73m >=60 mL/min/1.73 m [facility] Glucose [Mass/Vol] 103 mg/dL High 74 - 99 mg/dL [facility] Potassium [Moles/Vol] 4.2 mmol/L 3.7 - 5.1 mmol/L [facility] Protein [Mass/Vol] 7.9 g/dL 6.3 - 8.0 g/dL [facility] Sodium [Moles/Vol] 138 mmol/L 136 - 144 mmol/L [facility] Urea nitrogen [Mass/Vol] 13 mg/dL 7 - 21 mg/dL [facility] HbA1c (Bld)on 05-02-2022 Average glucose Estimated from glycated hemoglobin (Bld) [Mass/Vol] 137 mg/dL [facility] HbA1c (Bld) [Mass fraction] 6.4 % High 4.3 - 5.6 % [facility] LIPID PANEL, NONFASTINGon Cholesterol [Mass/Vol] 218 mg/dL High <170 mg/dL [facility] HDL Cholesterol, Nonfasting 28 mg/dL Low >45 mg/dL [facility] LDL Cholesterol, Nonfasting 136 mg/dL High <110 mg/dL [facility] LDL/HDL Ratio, Nonfasting 4.86 mg/dL High <2.42 mg/dL [facility] Non HDL Cholesterol, Nonfasting 190 mg/dL High <120 mg/dL [facility] Total Chol/HDL Ratio, Nonfasting 7.79 mg/dL High <3.76 mg/dL [facility] Triglycerides, Nonfasting 272 mg/dL High <90 mg/dL [facility] VLDL Cholesterol, Nonfasting 54 mg/dL High <18 mg/dL [facility] T4 FREE/FREE THYROXon 2022 Free T4 [Mass/Vol] 1.4 ng/dL 0.9 - 1.7 ng/dL [facility] TSH BLDon 05-02-2022 TSH Qn 0.905 m[IU]/L 0.510 - 4.300 mIU/L [facility] XR TIBIA FIBULA 2V AP/LAT RI GHTon 11-01-2021 [facility] XR Tibia and Fibula - right AP and Lateralon 11-01-2021 IMPRESSION: No acute fracture or dislocation of the right lower leg. Business Information Analyst: PSCB Transcribe Date/Time: Nov 01 2021 6:03P Dictated by : NEGAR ALVAREZ MD This examination was interpreted and the report reviewed and electronically signed by: NEGAR ALVAREZ MD on Nov 01 2021 6:04PM [facility] DIVISION OF RADIOLOGY * * *Final Report* * * DATE OF EXAM: Nov 01 2021 5:38PM WOX 5266 - XR TIBIA FIBULA 2V AP/LAT RT / PROCEDURE REASON: Pain of right lower extremity * * * * Physician Interpretation * * * * RIGHT LOWER LEG X-RAY SERIES HISTORY: Pain of right lower extremity TECHNIQUE: AP and lateral views. COMPARISON: None available. RESULT: No fracture, dislocation or destructive changes. Visible joint spaces and articular surfaces are preserved. Healed distal tibial and fibular fractures. DIVISION OF RADIOLOGY Provider, [facility] - 11/01/2021 * * *Final Report* * * DATE OF EXAM: Nov 01 2021 5:38PM WOX 5266 - XR TIBIA FIBULA 2V AP/LAT RT / PROCEDURE REASON: Pain of right lower extremity * * * * Physician Interpretation * * * * RIGHT LOWER LEG X-RAY SERIES HISTORY: Pain of right lower extremity TECHNIQUE: AP and lateral views. COMPARISON: None available. RESULT: No fracture, dislocation or destructive changes. Visible joint spaces and articular surfaces are preserved. Healed distal tibial and fibular fractures. IMPRESSION IMPRESSION: No acute fracture or dislocation of the right lower leg. Business Information Analyst: SCOTTY Transcribe Date/Time: Nov 01 2021 6:03P Dictated by : NEGAR ALVAREZ MD This examination was interpreted and the report reviewed and electronically signed by: NEGAR ALVAREZ MD on Nov 01 2021 6:04PM EST [facility] Radiology Study observation (narrative) [facility] XR Tibia and Fibula - right AP and LateralOrdered By: [facility] Provider on 11-01-2021 [facility] Progress Noteon 06-21-2021 Outpatient Clerk Authentication Interface Message Text Visit Subjective: Shaheed Bobo is a 20 y.o. female who presents for a visit. She is 7 weeks following a delivery low transverse. I have fully reviewed the and intrapartum course. The delivery was at 39 gestational weeks. Delivering Provider: Alicia Bland MD. General anesthesia due to history of intercranial hypertension in early . course has been complicated by readmission for endometritis and presently with exacerbation of her anxiety. Pt reports since delivery has moved to new housing unit with baby and FATHER OF BABY (Judson Jackson). feels safe in environment and had extended family support (father of baby,pts mother and pts grandmother) but anxious when home with just baby when Judson at work. gets out when is nice to walk. Limits driving as heightened anxiety with new baby in car and concern for accident. She denies ever having thoughts to hurt self or baby. States baby is good baby- sleeps, eats well. Tries to have lunch with her mother everyday. Baby is feeding by bottle. Bleeding stopped at 3 weeks but did have period 06/01/21. Bowel function is normal. Bladder function is normal. Patient is not sexually active. Contraception method is oral progesterone-only contraceptive. depression screening: did not complete. Plan for in person meeting with psychologist Patient's medications, allergies, past medical, surgical, , social, and family histories were reviewed and updated as appropriate. She is unaccompanied. Review of Systems Psychiatric/Behavioral: Positive for sleep disturbance (occasional nightmares). Negative for self-injury and suicidal ideas. Nervous/anxious: heightened anxiety since delivery- see note. All other systems reviewed and are negative. Objective: BP 100/68 Wt (!) 105.7 kg (233 lb) Physical Exam Constitutional: Appearance: She is well-developed and well-nourished. HENT: Head: Atraumatic. Cardiovascular: Rate and Rhythm: Normal rate and regular rhythm. Pulmonary: Effort: Pulmonary effort is normal. Abdominal: Palpations: Abdomen is soft. Neurological: Mental Status: She is alert and oriented to person, place, and time. Psychiatric: Mood and Affect: Mood and affect normal. Behavior: Behavior normal. Thought Content: Thought content normal. Judgment: Judgment normal. Comments: Eye contact throughout visit. Incision: incision intact and well healed. No erythema, palpable mass or tenderness 20 y.o. at 39w1d with Active Non-Hospital Problems Diagnosis Date Noted Personal history of COVID-19 02/19/2021 Priority: High Sx since 02/05 worsened 02/16/21 COVID, flu and strep neg 02/05, reports negative covid 02/12. Dry cough, nasal congestion Afebrile 02/19/21 repeat COVID, strep and influenza testing. 02/20 + COVID Papilledema 01/02/2021 Priority: High Admission on 01/01/2021 21w6d who was transferred from [facility] ED after confirmed in the setting of papilledema and hypertension. Patient reported a positive home test in August 2020. Presented to emblem maker 01/01 after 1-week history of headache and blurry vision. Blood pressures were initially severe in OSH and magnesium sulfate was started for seizure ppx. A head CT was negative for intracranial processes. Patient was transferred to [facility] for higher level of care and labs were obtained. Blood pressures were normotensive on arrival and have remained normotensive throughout entire hospital stay. PreE labs and 24 hour urine protein were normal, low likelihood for Pre-Eclampsia. 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 Neurology was then consulted. The patient underwent MRI/A/V which were all negative for acute process. Lumbar puncture was performed which confirmed diagnosis of IIH with an elevated opening pressure of 53, followed by 32cc drainage of CSF. Pt has had intermittent headaches since that have slowly improved after initiation of diamox per neurology recommendation. 01/05/21 discharge home with strict follow up instructions with neurology and need to establish care with Counts include 234 beds at the [facility]. Continue taking diamox BID for headaches. Stopped reglan as not needed 01/19 f/u with Dr Rocha Continue Diamox 500mg BID, f/u 2 months 06/21/21 Denies any neurological/headache issues since delivery Continues Diamox 500mg BID Aware need to reduce weight before consideration of discontinuing med Follow up with PCP 06/26/21 Anxiety Priority: Medium No meds 06/20/21 Increased anxiety s/p delivery, Recent move to new location. Appt with [facility] provider on 06/25/21 Obesity with body mass index of 30.0-39.9 01/08/2021 Priority: Medium BMI 37 ADHD Priority: Low Attention deficit hyperactivity disorder (ADHD), combined type 12/14/2014 Priori (more content not included)... Normal [facility] CULTURE BLOODon 05-12-2021 Microscopic examination of blood, culture CULTURE BLOOD --> Status: F No growth at 5 days. Normal [facility] Comment on above: Performed By: #### B FRP2 #### [place] [address] [address] [place], [place] CULTURE BLOOD (Two)on 2021 Microscopic examination of blood, culture CULTURE BLOOD (Two) --> Status: F No growth at 5 days. Normal [facility] Comment on above: Performed By: #### B FRP2 #### [place] [address] [address] [place], [place] CULTURE FUNGUSon 05-11-2021 CULTURE FUNGUS CULTURE FUNGUS --> S tatus: F Culture negative for Angelique species. Normal [facility] Comment on above: Performed By: #### C /FUN #### [place] [address] [address] [place], [place] Basic Metabolic Panelon 04-18 Calcium [Mass/Vol] 9.2 mg/dL Normal 8.4-10.4 [facility] Comment on above: Performed By: #### C TNGP #### [facility] [address] [place], [place] Glucose [Mass/Vol] 100 mg/dL Normal 70-100 [facility] Comment on above: Performed By: #### C TNGP #### [facility] [address] [place], [place] Urea nitrogen [Mass/Vol] 10 mg/dL Normal 9-20 [facility] Comment on above: Performed By: #### C TNGP #### [facility] [address] [place], [place] Anion gap [Moles/Vol] 5 mmol/L Normal 3-13 [facility] Comment on above: Performed By: #### C TNGP #### [facility] [address] [place], [place] CO2 [Moles/Vol] 20 mmol/L Low 22-30 [facility] Comment on above: Performed By: #### C TNGP #### [facility] [address] [place], [place] Creatinine [Mass/Vol] 0.59 mg/dL Normal 0.52-1.25 [facility] Comment on above: Performed By: #### C TNGP #### [facility] [address] [place], [place] eGFR OTHER > 90.0 Normal >60 [facility] Comment on above: Result Comment: KDIG O guidelines provide the following GFR categories: Stage GFR(ml/min/1.73 m2) Terms G1 >=90 Normal or high G2 60-89 Mildly decreased* G3a 45-59 Mildly to moderately decreased G3b 30-44 Moderately to severely decreased G4 15-29 Severely decreased G5 <15 Kidney failure *Relative to young adult level. In the absence of evidence of kidney damage, neither GFR category G1 nor G2 fulfill the criteria for CKD. The CKD-EPI equation is validated in individuals 18 years of age and older. Currently the best equation for estimating glomerular filtration rate (GFR) from serum creatinine in children is the Bedside Tomlinson equation. It is less accurate in patients with extremes of muscle mass, restriction of dietary protein, ingestion of creatine, extra-renal metabolism of creatinine, or treatment with medications that affect renal tubular creatinine secretion. Performed By: #### C TNGP #### [facility] [address] [place], [place] GFR/1.73 sq M.predicted among blacks MDRD (S/P/Bld) [Vol rate/Area] mL/min/{1.73_m2} Normal >60 [facility] Comment on above: Performed By: #### C TNGP #### [facility] [address] [place], [place] Chloride [Moles/Vol] 110 mmol/L High 98-107 [facility] Comment on above: Performed By: #### C TNGP #### [facility] [address] [place], [place] Potassium [Moles/Vol] 3.7 mmol/L Normal 3.5-5.1 [facility] Comment on above: Performed By: #### C TNGP #### [facility] [address] [place], [place] Sodium [Moles/Vol] 135 mmol/L Normal 135-145 [facility] Comment on above: Performed By: #### C TNGP #### [address] Anion gap [Moles/Vol] 5 mmol/L 3 - 13 mmol/L [facility] Calcium [Mass/Vol] 9.2 mg/dL 8.4 - 10. 4 mg/dL [facility] Chloride [Moles/Vol] 110 mmol/L High 98 - 10 7 mmol/L [facility] CO2 [Moles/Vol] 20 mmol/L Low 22 - 30 mmol/L [facility] Creatinine [Mass/Vol] 0.59 mg/dL 0.52 - 1.25 mg/dL [facility] EGFR IF NonAfrican Polish >90.0 >60 mL/min [facility] Comment on above: KDIGO guidelines pro vide the following GFR categories: Stage GFR(ml/min/1.73 m2) Terms G1 >=90 Normal or high G2 60-89 Mildly decreased* G3a 45-59 Mildly to moderately decreased G3b 30-44 Moderately to severely decreased G4 15-29 Severely decreased G5 <15 Kidney failure *Relative to young adult level. In the absence of evidence of kidney damage, neither GFR category G1 nor G2 fulfill the criteria for CKD. The CKD-EPI equation is validated in individuals 18 years of age and older. Currently the best equation for estimating glomerular filtration rate (GFR) from serum creatinine in children is the Bedside Tomlinson equation. It is less accurate in patients with extremes of muscle mass, restriction of dietary protein, ingestion of creatine, extra-renal metabolism of creatinine, or treatment with medications that affect renal tubular creatinine secretion. GFR/1.73 sq M.predicted among blacks MDRD (S/P/Bld) [Vol rate/Area] mL/min/{1.73_m2} >60 mL/min [facility] Glucose [Mass/Vol] 100 mg/dL 70 - 100 mg/dL [facility] Interpretation and review of laboratory results Abnormal [facility] Potassium [Moles/Vol] 3.7 mmol/L 3.5 - 5.1 mmol/L [facility] Sodium [Moles/Vol] 135 mmol/L 135 - 145 mmol/L [facility] Urea nitrogen (BldV) [Mass/Vol] 10 mg/dL 9 - 20 mg/dL [facility] Test Performed by [facility], [address] [place] [id number] [place] [address] LAB [facility] CBCon 05-08-2021 Hematocrit (Bld) [Volume fraction] 23.8 % Low 35.0 - 47.0 % [facility] Hemoglobin.gastrointe stinal spec 1 Ql (Stl) 7.4 g/dL Low 11.7 - 16.0 g/dL [facility] Interpretation and review of laboratory results Abnormal [facility] MCH (RBC) [Entitic mass] 25.5 pg Low 26.0 - 34.0 pg [facility] MCHC (RBC) [Mass/Vol] 31.1 % Low 32.0 - 36.0 % [facility] MCV (RBC) [Entitic vol] 82.0 fL 79.0 - 98.0 fL [facility] Platelet distribution width (Bld) [Ratio] 16.9 % High 11.5 - 14.5 % [facility] Platelet mean volume (Bld) [Entitic vol] 6.1 fL Low 7.4 - 10.4 fL [facility] Platelets (Bld) [#/Vol] 417 10*3/uL 140 - 440 10*3/uL [facility] RBC (Bld) [#/Vol] 2.90 10*6/uL Low 3.80 - 5.2 0 10*6/uL [facility] WBC (Bld) [#/Vol] 8.8 10*3/uL 3.6 - 10.7 10*3/uL [facility] Test Performed by [facility], [place] [address] [facility] CULTURE URINEon 05-08-2021 CULTURE URINE CULTURE URINE --> St atus: F Normal urogenital violeta present. Normal [facility] Comment on above: Performed By: #### C /FUN #### [place] [address] [address] [place], [place] Culture, Urineon 05-08-2021 Bacteria identified Cx Nom (U) Normal urogenital violeta present. [facility] Test Performed by [facility], [place] [address] [facility] Hemogramon 05-08-2021 Erythrocyte distribution width (RBC) [Ratio] 16.9 % High 11.5-14.5 [facility] Comment on above: Performed By: #### C TNGP #### [place] [place], [place] Hematocrit (Bld) [Volume fraction] 23.8 % Low 35.0-47.0 [facility] Comment on above: Performed By: #### C TNGP #### [place] [address] [place], [place] Hemoglobin (Bld) [Mass/Vol] 7.4 g/dL Low 11.7-16.0 [facility] Comment on above: Performed By: #### C TNGP #### [place] [place], [place] MCH (RBC) [Entitic mass] 25.5 pg Low 26.0-34.0 [facility] Comment on above: Performed By: #### C TNGP #### [address] MCHC 31.1 % Low 32.0-36.0 [facility] Comment on above: Performed By: #### C TNGP #### [place] [address] [address] [place], [place] MCV (RBC) [Entitic vol] 82.0 fL Normal 79.0-98.0 [facility] Comment on above: Performed By: #### C TNGP #### [address] [address] [address] [place], [place] Platelet mean volume (Bld) [Entitic vol] 6.1 fL Low 7.4-10.4 [facility] Comment on above: Performed By: #### C TNGP #### [address] [address] [place] [address] Platelets (Bld) [#/Vol] 417 10*3/uL Normal 140-440 [facility] Comment on above: Performed By: #### C TNGP #### [address] RBC (Bld) [#/Vol] 2.90 10*6/uL Low 3.80-5.20 [facility] Comment on above: Performed By: #### C TNGP #### [address] [address] [address] [address] [place], [place] WBC (Bld) [#/Vol] 8.8 10*3/uL Normal 3.6-10.7 [facility] Comment on above: Performed By: #### C TNGP #### [address] Trichomonas Vaginali, Molecu laly 05-08-2021 Trichomonas Vaginali, Molecular NOT Detected Reference Interval: Not Detected Method: Real-time PCR. Negative results do not completely rule out infection with Trichomonas vaginalis. [facility] Test Performed by [facility], [place] [address] [facility] Trichomonas vaginalis PCRon 05-08-2021 Trichomonas vaginalis PCR Trichomonas vaginalis PCR --> Status: F NOT Detected Reference Interval: Not Detected Method: Real-time PCR. Negative results do not completely rule out infection with Trichomonas vaginalis. Reference Interval: Not Detected Method: Real-time PCR. Negative results do not completely rule out infection with Trichomonas vaginalis. Normal [facility] Comment on above: Performed By: #### B FRP2 #### [address] [address] [place] [address] Add On Lab Teston 05-07-2021 Add On Accepted [facility] Comment on above: Specimen available & acceptable for analysis. Test Performed by [facility], [address] [place] [id number] [facility] Add on test from HISon 05-07 Add on test from HIS Accepted Normal [facility] Comment on above: Result Comment: Spec imen available & acceptable for analysis. Performed By: #### C TNGP #### [address] [id number] C. Trachomatis / N. Gonorrho eae, DNA Probeon 05-07-2021 C. trachomatis DNA PARI+probe Ql (Genital specimen) NOT Detected Chlamydia trachomatis Nucleic Acid NOT Detected by DNA Amplification using the [employer] System. Culture is the only recommended test in medical-legal cases such as suspected child abuse or molestation. [facility] N. gonorrhoeae DNA PARI+probe Ql (Unsp spec) NOT Detected Neisseria gonorrhoeae Nucleic Acid NOT Detected by DNA Amplification using the Cepheid System. Culture is the only recommended test in medical-legal cases such as suspected child abuse or molestation. [facility] Test Performed by [facility], [address] [place] [id number] [facility] CBC with Auto Differentialon 05-07-2021 Absolute Baso # 0.0 10*3/uL 0.0 - 0.2 10*3/uL [facility] Absolute Neut # 9.9 10*3/uL High 1.8 - 7.0 10*3/uL [facility] Basophils/100 WBC (Bld) 0.2 % 0.0 - 2.0 % [facility] Eosinophils (Bld) [#/Vol] 0.1 10*3/uL 0.0 - 0.5 10*3/uL [facility] Eosinophils/100 WBC (Bld) 0.5 % Low 1.0 - 6.0 % [facility] Granulocytes/100 WBC (Bld) 82.1 % High 40.0 - 80.0 % [facility] Hematocrit (Bld) [Volume fraction] 23.7 % Low 35.0 - 47.0 % [facility] Hemoglobin.gastrointe stinal spec 1 Ql (Stl) 7.3 g/dL Low 11.7 - 16.0 g/dL [facility] Interpretation and review of laboratory results Abnormal [facility] Lymphocytes (Bld) [#/Vol] 1.2 10*3/uL 1.0 - 4.3 10*3/uL [facility] Lymphocytes/100 WBC (Bld) 9.6 % Low 20.0 - 40.0 % [facility] MCH (RBC) [Entitic mass] 25.2 pg Low 26.0 - 34.0 pg [facility] MCHC (RBC) [Mass/Vol] 30.8 % Low 32.0 - 36.0 % [facility] MCV (RBC) [Entitic vol] 81.8 fL 79.0 - 98.0 fL [facility] Monocytes (Bld) [#/Vol] 0.9 10*3/uL High 0.0 - 0.8 10*3/uL [facility] Monocytes/100 WBC (Bld) 7.6 % 2.0 - 10.0 % [facility] Platelet distribution width (Bld) [Ratio] 16.6 % High 11.5 - 14.5 % [facility] Platelet mean volume (Bld) [Entitic vol] 6.4 fL Low 7.4 - 10.4 fL [facility] Platelets (Bld) [#/Vol] 442 10*3/uL High 140 - 440 10*3/uL [facility] RBC (Bld) [#/Vol] 2.90 10*6/uL Low 3.80 - 5.2 0 10*6/uL [facility] WBC (Bld) [#/Vol] 12.1 10*3/uL High 3.6 - 10.7 10*3/uL [facility] Test Performed by [facility], [address] [place] [id number] [place] [address] LAB [facility] COVID and Resp PCR Panelon 0 05-07-2021 SARS-CoV-2 (COVID-19) RNA PARI+probe Ql (Unsp spec) COVID and Resp PCR Panel --> Status: F NEGATIVE: No targets were detected by the [employer] Upper Respiratory Pathogens PCR Panel. _ Expected Result: Not Detected The [employer] Upper Respiratory Pathogens PCR Panel can detect the following targets: SARS-CoV-2, Adenovirus, Coronavirus 229E, Coronavirus HKU1, Coronavirus NL63, Coronavirus OC43, Human Metapneumovirus, Human Rhinovirus/Enterovirus, Influenza A, Influenza B, Parainfluenza Virus 1, Parainfluenza Virus 2, Parainfluenza Virus 3, Parainfluenza Virus 4, Respiratory Syncytial Virus, Bordetella pertussis, Bordetella parapertussis, Chlamydia pneumoniae, Mycoplasma pneumoniae. Method: Real-time PCR. Respiratory Pathogens PCR Panel. _ Expected Result: Not Detected The [employer] Upper Respiratory Pathogens PCR Panel can detect the following targets: SARS-CoV-2, Adenovirus, Coronavirus 229E, Coronavirus HKU1, Coronavirus NL63, Coronavirus OC43, Human Metapneumovirus, Human Rhinovirus/Enterovirus, Influenza A, Influenza B, Parainfluenza Virus 1, Parainfluenza Virus 2, Parainfluenza Virus 3, Parainfluenza Virus 4, Respiratory Syncytial Virus, Bordetella pertussis, Bordetella parapertussis, Chlamydia pneumoniae, Mycoplasma pneumoniae. Method: Real-time PCR. Normal [facility] Comment on above: Performed By: #### B FRP2 #### [facility] [address] [place] [id number] [address] Abdomen and Pelvis W cont rast Tabby 05-07-2021 Patient Name: SHAHEED BOBO Computed Tomography ACCESSION EXAM DATE/TIME PROCEDURE ORDERING PROVIDER [id number] 05/07/2021 05:[address] Abdomen/Pelvis w/ IV [id number] [facility] Contrast (IV Onl CPT code 72117 Q9967 Reason For Exam (CT Abdomen/Pelvis w/ IV Contrast (IV Onl) abdominal pain, s/p c section Report HISTORY: Recent with fever chills vaginal bleeding After intravenous contrast sections performed through the abdomen and pelvis. Included sections through the lung bases show no definite abnormality. Liver spleen are normal size with no definite abnormalities. Pancreas adrenal regions and kidneys are negative. No free air or free fluid is seen. IMPRESSION: 1. Enlarged uterus with prior with blood density in the myometrium seen on sagittal view in the fundus. 2. Trace air is seen in the urinary bladder probably due to previous instrumentation. Prior with tiny air bubbles anterior abdominal wall /medial aspect right rectus abdominis muscle and subcutaneous tissues. Report Dictated on --- Final --- Dictated: 05/07/2021 6:07 am Dictating Physician: MD CRAWFORD WILLIAM Signed Date and Time: 05/07/2021 6:12 am Signed by: MD CRAWFORD WILLIAM Transcribed Date and Time: 05/07/2021 6:07 [facility] Nancy Crawford MD - 05/07/2021 Patient Name: SHAHEED BOBO Computed Tomography ACCESSION EXAM DATE/TIME PROCEDURE ORDERING PROVIDER [id number] 05/07/2021 05:[address] Abdomen/Pelvis w/ [place] [id number] -[facility] Contrast (IV Onl CPT code 06208 Q9967 Reason For Exam (CT Abdomen/Pelvis w/ IV Contrast (IV Onl) abdominal pain, s/p c section Report HISTORY: Recent with fever chills vaginal bleeding After intravenous contrast sections performed through the abdomen and pelvis. Included sections through the lung bases show no definite abnormality. Liver spleen are normal size with no definite abnormalities. Pancreas adrenal regions and kidneys are negative. No free air or free fluid is seen. IMPRESSION: 1. Enlarged uterus with prior with blood density in the myometrium seen on sagittal view in the fundus. 2. Trace air is seen in the urinary bladder probably due to previous instrumentation. Prior with tiny air bubbles anterior abdominal wall /medial aspect right rectus abdominis muscle and subcutaneous tissues. Report Dictated on --- Final --- Dictated: 05/07/2021 6:07 am Dictating Physician: MD CRAWFORD WILLIAM Signed Date and Time: 05/07/2021 6:12 am Signed by: MD CRAWFORD WILLIAM Transcribed Date and Time: 05/07/2021 6:07 [facility] Work Phone: [facility] Work Phone: CT Abdomen/Pelvis w/ Contras ton 05-07-2021 CT Abdomen/Pelvis w/ Contrast Patient Name: SHAHEED BOBO Computed Tomography ACCESSION EXAM DATE/TIME PROCEDURE ORDERING PROVIDER [id number] 05/07/2021 05:[address] Abdomen/Pelvis w/ IV [id number] -[facility] Contrast (IV Onl CPT code 72244 Q9967 Reason For Exam (CT Abdomen/Pelvis w/ IV Contrast (IV Onl) abdominal pain, s/p c section Report HISTORY: Recent with fever chills vaginal bleeding After intravenous contrast sections performed through the abdomen and pelvis. Included sections through the lung bases show no definite abnormality. Liver spleen are normal size with no definite abnormalities. Pancreas adrenal regions and kidneys are negative. No free air or free fluid is seen. IMPRESSION: 1. Enlarged uterus with prior with blood density in the myometrium seen on sagittal view in the fundus. 2. Trace air is seen in the urinary bladder probably due to previous instrumentation. Prior with tiny air bubbles anterior abdominal wall /medial aspect right rectus abdominis muscle and subcutaneous tissues. Report Dictated on Final Dictated: 05/07/2021 6:07 am Dictating Physician: MD CRAWFORD WILLIAM Signed Date and Time: 05/07/2021 6:12 am Signed by: MD CRAWFORD WILLIAM Transcribed Date and Time: 05/07/2021 6:07 Normal [facility] CTA CHEST W WO CONTRASTon Patient Name: SHAHEED AGRAWAL Computed Tomography ACCESSION EXAM DATE/TIME PROCEDURE ORDERING PROVIDER [id number] 05/07/2021 08:12 EDT CTA Chest w/ + w/o [id number] -[place] CPT code 18608 Q9967 Reason For Exam (CTA Chest w/ + w/o Contrast) , tachycardia, fever, r/o PE Report CTA of the chest, 05/07/2021. Reason for examination: Shortness of breath and tachycardia. COMPARISON: None available. TECHNIQUE: 1 mm axial images were obtained through the chest following intravenous administration of 75 mL of Isovue 370. Coronal and sagittal reconstructions were created and reviewed. 3-dimensional postprocessing was performed by myself on an independent workstation at the time of interpretation with saved volume rendered images. FINDINGS: Pulmonary vasculature: Contrast bolus is significantly suboptimal. Evaluation is also significantly limited by motion artifact. No definite pulmonary thromboembolic disease is detected. Lungs/pleura: Evaluation of the lung parenchyma is also limited by motion. The lungs are largely clear with mild atelectasis in the dependent portions of the lungs and in the lower lung jones. There is no pleural effusion. Mediastinum: Cardiac size is difficult normal to mildly enlarged. The thoracic aorta is normal in caliber. There are visible but technically nonenlarged mediastinal and hilar lymph nodes. Chest wall/soft tissues: There are borderline enlarged axillary lymph nodes bilaterally which may also be reactive in nature. No supraclavicular lymphadenopathy is noted. Upper abdomen: The abdomen was evaluated on a dedicated CT obtained earlier on 05/07/2021 IMPRESSION: Significantly limited examination. No definite pulmonary thromboembolic disease. Other findings as described. Computed Tomography Report Report Dictated on --- Final --- Dictated: 05/07/2021 8:27 am Dictating Physician: MD ROBLEDO JOE M Signed Date and Time: 05/07/2021 8:32 am Signed by: MD ROBLEDO JOE M Transcribed Date and Time: 05/07/2021 8:27 [facility] Kd Robledo MD - 05/07/2021 Patient Name: SHAHEED BOBO Computed Tomography ACCESSION EXAM DATE/TIME PROCEDURE ORDERING PROVIDER [id number] 05/07/2021 08:12 EDT CTA Chest w/ + w/o [id number] [facility] CPT code 68055 Q9967 Reason For Exam (CTA Chest w/ + w/o Contrast) , tachycardia, fever, r/o PE Report CTA of the chest, 05/07/2021. Reason for examination: Shortness of breath and tachycardia. COMPARISON: None available. TECHNIQUE: 1 mm axial images were obtained through the chest following intravenous administration of 75 mL of Isovue 370. Coronal and sagittal reconstructions were created and reviewed. 3-dimensional postprocessing was performed by myself on an independent workstation at the time of interpretation with saved volume rendered images. FINDINGS: Pulmonary vasculature: Contrast bolus is significantly suboptimal. Evaluation is also significantly limited by motion artifact. No definite pulmonary thromboembolic disease is detected. Lungs/pleura: Evaluation of the lung parenchyma is also limited by motion. The lungs are largely clear with mild atelectasis in the dependent portions of the lungs and in the lower lung jones. There is no pleural effusion. Mediastinum: Cardiac size is difficult normal to mildly enlarged. The thoracic aorta is normal in caliber. There are visible but technically nonenlarged mediastinal and hilar lymph nodes. Chest wall/soft tissues: There are borderline enlarged axillary lymph nodes bilaterally which may also be reactive in nature. No supraclavicular lymphadenopathy is noted. Upper abdomen: The abdomen was evaluated on a dedicated CT obtained earlier on 05/07/2021 IMPRESSION: Significantly limited examination. No definite pulmonary thromboembolic disease. Other findings as described. Computed Tomography Report Report Dictated on --- Final --- Dictated: 05/07/2021 8:27 am Dictating Physician: MD ROBLEDO JOE M Signed Date and Time: 05/07/2021 8:32 am Signed by: MD ROBLEDO JOE M Transcribed Date and Time: 05/07/2021 8:27 [facility] Work Phone: CTA CHEST W WO CONTRASTOrder ed By: Kd Robledo on 05-07-2021 [facility] Work Phone: CTA Chest w/ + w/o Contrasto n 05-07-2021 CTA Chest w/ + w/o Contrast [facility]: [id number] ACCESSION EXAM DATE/TIME PROCEDURE ORDERING PROVIDER [id number] 05/07/2021 08:12 EDT CTA Chest w/ + w/o [id number] [facility] CPT code 81448 Q9967 Reason For Exam (CTA Chest w/ + w/o Contrast) , tachycardia, fever, r/o PE Report CTA of the chest, 05/07/2021. Reason for examination: Shortness of breath and tachycardia. COMPARISON: None available. TECHNIQUE: 1 mm axial images were obtained through the chest following intravenous administration of 75 mL of Isovue 370. Coronal and sagittal reconstructions were created and reviewed. 3-dimensional postprocessing was performed by myself on an independent workstation at the time of interpretation with saved volume rendered images. FINDINGS: Pulmonary vasculature: Contrast bolus is significantly suboptimal. Evaluation is also significantly limited by motion artifact. No definite pulmonary thromboembolic disease is detected. Lungs/pleura: Evaluation of the lung parenchyma is also limited by motion. The lungs are largely clear with mild atelectasis in the dependent portions of the lungs and in the lower lung jones. There is no pleural effusion. Mediastinum: Cardiac size is difficult normal to mildly enlarged. The thoracic aorta is normal in caliber. There are visible but technically nonenlarged mediastinal and hilar lymph nodes. Chest wall/soft tissues: There are borderline enlarged axillary lymph nodes bilaterally which may also be reactive in nature. No supraclavicular lymphadenopathy is noted. Upper abdomen: The abdomen was evaluated on a dedicated CT obtained earlier on 05/07/2021 IMPRESSION: Significantly limited examination. No definite pulmonary thromboembolic disease. Other findings as described. Computed Tomography Report Report Dictated on Final Dictated: 05/07/2021 8:27 am Dictating Physician: MD ROBLEDO JOE M Signed Date and Time: 05/07/2021 8:32 am Signed by: MD ROBLEDO JOE M Transcribed Date and Time: 05/07/2021 8:27 Normal [facility] CULT./ST. VAGINAon 2 CULT./ST. VAGINA CULT./ST. VAGINA --> Status: F Few vaginal violeta. No Group B streptococcus isolated. No Group B streptococcus isolated. STAIN GRAM --> Status: F Gram stain contains mixed morphotypes consistent with transition from normal vaginal violeta. transition from normal vaginal violeta. Normal [facility] Comment on above: Performed By: #### C SW/V #### [address] [id number] Chlamydia and GC PCR Panelon 05-07-2021 Chlamydia and GC PCR Panel Chlamydia trachomatis PCR --> Status: F NOT Detected Chlamydia trachomatis Nucleic Acid NOT Detected by DNA Amplification using the Cepheid System. Culture is the only recommended test in medical-legal cases such as suspected child abuse or molestation. Chlamydia trachomatis Nucleic Acid NOT Detected by DNA Amplification using the [employer] System. Culture is the only recommended test in medical-legal cases such as suspected child abuse or molestation. Neisseria gonorrhoeae PCR --> Status: F NOT Detected Neisseria gonorrhoeae Nucleic Acid NOT Detected by DNA Amplification using the [employer] System. Culture is the only recommended test in medical-legal cases such as suspected child abuse or molestation. Neisseria gonorrhoeae Nucleic Acid NOT Detected by DNA Amplification using the [employer] System. Culture is the only recommended test in medical-legal cases such as suspected child abuse or molestation. Normal [facility] Comment on above: Performed By: #### B FRP2 #### [address] [address] [address] [place], [place] Comp Panel with Mg Reflexon 05-07-2021 ALP [Catalytic activity/Vol] 63 U/L Normal 38-126 [facility] Comment on above: Performed By: #### C SW/V #### [address] [address] [address] [address] [place], [place] ALT [Catalytic activity/Vol] 24 U/L Normal 0-34 [facility] Comment on above: Result Comment: The ALT test is performed by an updated assay method. Please note that the reference intervals have been changed and are now sex specific. Performed By: #### C SW/V #### [address] [address] [address] [address] [place], [place] Anion gap [Moles/Vol] 10 mmol/L Normal 3-13 [facility] Comment on above: Performed By: #### C SW/V #### [place] [address] [address] [address] [place], [place] AST [Catalytic activity/Vol] 26 U/L Normal 15-46 [facility] Comment on above: Performed By: #### C SW/V #### [address] [address] [address] [address] [place], [place] Bilirubin [Mass/Vol] 0.5 mg/dL Normal 0.2-1.3 [facility] Comment on above: Performed By: #### C SW/V #### [address] [address] [address] [address] [place], [place] Calcium [Mass/Vol] 9.3 mg/dL Normal 8.4-10.4 [facility] Comment on above: Performed By: #### C SW/V #### [facility] [address] [place], [place] CO2 [Moles/Vol] 16 mmol/L Low 22-30 [facility] Comment on above: Performed By: #### C SW/V #### [facility] [address] [place], [place] Creatinine [Mass/Vol] 0.68 mg/dL Normal 0.52-1.25 [facility] Comment on above: Performed By: #### C SW/V #### [address] eGFR OTHER > 90.0 Normal >60 [facility] Comment on above: Result Comment: KDIG O guidelines provide the following GFR categories: Stage GFR(ml/min/1.73 m2) Terms G1 >=90 Normal or high G2 60-89 Mildly decreased* G3a 45-59 Mildly to moderately decreased G3b 30-44 Moderately to severely decreased G4 15-29 Severely decreased G5 <15 Kidney failure *Relative to young adult level. In the absence of evidence of kidney damage, neither GFR category G1 nor G2 fulfill the criteria for CKD. The CKD-EPI equation is validated in individuals 18 years of age and older. Currently the best equation for estimating glomerular filtration rate (GFR) from serum creatinine in children is the Bedside Tomlinson equation. It is less accurate in patients with extremes of muscle mass, restriction of dietary protein, ingestion of creatine, extra-renal metabolism of creatinine, or treatment with medications that affect renal tubular creatinine secretion. Performed By: #### C SW/V #### [facility] [address] [place], [place] GFR/1.73 sq M.predicted among blacks MDRD (S/P/Bld) [Vol rate/Area] mL/min/{1.73_m2} Normal >60 [facility] Comment on above: Performed By: #### C SW/V #### [address] Glucose [Mass/Vol] 125 mg/dL High 70-100 [facility] Comment on above: Performed By: #### C SW/V #### [facility] [address] [place], [place] Protein [Mass/Vol] 6.6 g/dL Normal 6.3-8.2 [facility] Comment on above: Performed By: #### C SW/V #### [facility] [address] [place], [place] Urea nitrogen [Mass/Vol] 11 mg/dL Normal 9-20 [facility] Comment on above: Performed By: #### C SW/V #### [facility] [address] [place], [place] Albumin [Mass/Vol] 3.5 g/dL Normal 3.5-5.0 [facility] Comment on above: Performed By: #### C SW/V #### [address] [address] [address] [place], [place] Chloride [Moles/Vol] 108 mmol/L High 98-107 [facility] Comment on above: Performed By: #### C SW/V #### [address] [address] [address] [place], [place] Potassium [Moles/Vol] 4.0 mmol/L Normal 3.5-5.1 [facility] Comment on above: Performed By: #### C SW/V #### [address] [address] [address] [place], [place] Sodium [Moles/Vol] 135 mmol/L Normal 135-145 [facility] Comment on above: Performed By: #### C SW/V #### [facility] [address] [place], [place] Complete Urinalysison 2021 Appearance (U) Clear Normal Clear [facility] Comment on above: Result Comment: . Performed By: #### C /FUN #### [facility] [address] [place], [place] Bacteria LM.HPF (Urine sed) [#/Area] Negative Normal Negative [facility] Comment on above: Result Comment: . Performed By: #### C /FUN #### [facility] [address] [place], [place] Bilirubin,Urine Negative Normal [facility] Comment on above: Result Comment: . Performed By: #### C /FUN #### [facility] [address] [place], [place] Cast, Hyaline Negative Normal Negative [facility] Comment on above: Result Comment: . Performed By: #### C /FUN #### [facility] [address] [place], [place] Color (U) Light-Yellow Normal Lt. Yellow [facility] Comment on above: Result Comment: . Performed By: #### C /FUN #### [facility] [address] [place], [place] Glucose Ql (U) Normal Normal Normal (<70) [facility] Comment on above: Result Comment: . Performed By: #### C /FUN #### [facility] [address] [place], [place] Ketone,Urine Negative Normal Negative [facility] Comment on above: Result Comment: . Performed By: #### C /FUN #### [facility] [address] [place], [place] Leukocytes,Urine Negative Normal Negative [facility] Comment on above: Result Comment: . Performed By: #### C /FUN #### [address] [address] [address] [place], [place] Nitrites,Urine Negative Normal Negative [facility] Comment on above: Result Comment: . Performed By: #### C /FUN #### [facility] [address] [place], [place] Occult Blood,Urine 0.2 mg/dL Abnormal Negative [facility] Comment on above: Result Comment: . Performed By: #### C /FUN #### [place] [address] [place], [place] pH,Urine 7.5 Normal 5.0-8.0 [facility] Comment on above: Result Comment: . Performed By: #### C /FUN #### [place] [address] [address] [place], [place] RBC, Urine 3 - 5 Abnormal 0-2 [facility] Comment on above: Result Comment: . Performed By: #### C /FUN #### [facility] [address] [place], [place] Specific [place],Urine 1.016 Normal 1.005 - 1.030 [facility] Comment on above: Result Comment: . Performed By: #### C /FUN #### [facility] [address] [place], [place] Squamous Epithelial 3 - 5 Normal 3-5 [facility] Comment on above: Result Comment: . Performed By: #### C /FUN #### [facility] [address] [place], [place] Total Protein,Urine Negative Normal Negative [facility] Comment on above: Result Comment: . Performed By: #### C /FUN #### [facility] [address] [place], [place] Urobilinogen,Urine Normal Normal Normal (0-1) [facility] Comment on above: Result Comment: . Performed By: #### C /FUN #### [facility] [address] [place], [place] WBC, Urine 0 - 2 Normal 0-5 [facility] Comment on above: Result Comment: . Performed By: #### C /FUN #### [place] [address] [address] [place], [place] Comprehensive Metabolic Pane l w/ Reflex to MGon 05-07-2021 Albumin [Mass/Vol] 3.5 g/dL 3.5 - 5.0 g/dL [facility] ALP (Bld) [Catalytic activity/Vol] 63 U/L 38 - 126 U/L [facility] ALT [Catalytic activity/Vol] 24 U/L 0 - 34 U/L [facility] Comment on above: The ALT test is perf ormed by an updated assay method. Please note that the reference intervals have been changed and are now sex specific. Anion gap [Moles/Vol] 10 mmol/L 3 - 13 mmol/L [facility] AST [Catalytic activity/Vol] 26 U/L 15 - 46 U/L [facility] Bilirubin [Mass/Vol] 0.5 mg/dL 0.2 - 1 .3 mg/dL [facility] Calcium [Mass/Vol] 9.3 mg/dL 8.4 - 10. 4 mg/dL [facility] Chloride [Moles/Vol] 108 mmol/L High 98 - 10 7 mmol/L [facility] CO2 [Moles/Vol] 16 mmol/L Low 22 - 30 mmol/L [facility] Creatinine [Mass/Vol] 0.68 mg/dL 0.52 - 1.25 mg/dL [facility] EGFR IF NonAfrican Polish >90.0 >60 mL/min [facility] Comment on above: KDIGO guidelines pro vide the following GFR categories: Stage GFR(ml/min/1.73 m2) Terms G1 >=90 Normal or high G2 60-89 Mildly decreased* G3a 45-59 Mildly to moderately decreased G3b 30-44 Moderately to severely decreased G4 15-29 Severely decreased G5 <15 Kidney failure *Relative to young adult level. In the absence of evidence of kidney damage, neither GFR category G1 nor G2 fulfill the criteria for CKD. The CKD-EPI equation is validated in individuals 18 years of age and older. Currently the best equation for estimating glomerular filtration rate (GFR) from serum creatinine in children is the Bedside Tomlinson equation. It is less accurate in patients with extremes of muscle mass, restriction of dietary protein, ingestion of creatine, extra-renal metabolism of creatinine, or treatment with medications that affect renal tubular creatinine secretion. Free PSA/Total PSA [Mass fraction] 6.6 g/dL 6.3 - 8.2 g/dL [facility] GFR/1.73 sq M.predicted among blacks MDRD (S/P/Bld) [Vol rate/Area] mL/min/{1.73_m2} >60 mL/min [facility] Glucose [Mass/Vol] 125 mg/dL High 70 - 100 mg/dL [facility] Interpretation and review of laboratory results Abnormal [facility] Potassium [Moles/Vol] 4.0 mmol/L 3.5 - 5.1 mmol/L [facility] Sodium [Moles/Vol] 135 mmol/L 135 - 145 mmol/L [facility] Urea nitrogen (BldV) [Mass/Vol] 11 mg/dL 9 - 20 mg/dL [facility] ED Provider Noteon 2 ED Provider Note Emergency Department Encounter [facility] EMERGENCY DEPT Patient: Shaheed Bobo : 2000 Date of Evaluation: 05/07/2021 ED Supervising Physician: Lillie Calderon MD I independently examined and evaluated Shaheed Bobo. In brief, Shaheed Bobo is a 20 y.o. female that presents to the emergency department fever. 5 days post op from c section. Patient denies cough skin rash pain with urination. She has some mild lower abdominal tenderness but has not been worsening no significant change in her vaginal discharge no redness swelling or purulent discharge at her incisional site. No other complaints Focused exam: Patient's tachycardic but awake alert well-appearing she is febrile to 102 no increased work of breathing lungs clear to auscultation her incisions clean dry intact she has a benign abdominal exam pelvic exam per resident notation Brief ED course/MDM: Patient is 20 presenting with fever tachycardia she is 5 days postop from a initially her blood pressure is significantly elevated but this resolved on its own low suspicion for preeclampsia. Fluids and antibiotics given upfront lower suspicion for endometritis but will check an ultrasound to rule out retained products. On her pelvic exam we had difficulty seeing the cervix did not have any obvious discharge or severe uterine fundal tenderness. CT of the abdomen and pelvis pending for intra-abdominal infection evaluation. Urinalysis and chest x-ray also ordered. MANAGER USER INTERFACE will be consulted. Anticipate admission. Dx: simple sepsis All diagnostic, treatment, and disposition decisions were made by myself in conjunction with the LARISA. For all further details of the patient's emergency department visit, please see their documentation. (Please note that portions of this note may have been completed with a voice recognition program. Efforts were made to edit the dictations but occasionally words are mis-transcribed.) Lillie Calderon MD [employer] Lillie Calderon MD 05/07/21 0353 [facility] ED Provider Note [facility] EMERGENCY DE[facility] EMERGENCY DEPARTMENT ENCOUNTER Pt Name: Shaheed Bobo Birthdate 2000 Date of evaluation: 05/07/2021 Provider: NILE STONE, CHIEF COMPLAINT Chief Complaint Patient presents with ? Fever patient c/o fever/chills , had 05/02. denies cough/congestion, denies sick contacts; denies worsening pain or redness to surgical site. HISTORY OF PRESENT ILLNESS (Location/Symptom, Timing/Onset, Context/Setting, Quality, Duration, Modifying Factors, Severity) Note limiting factors. I wore a surgical mask for the entirety of this encounter. Does this patient come from an ECF, SNF, Rehab, Fdc or other Congregate setting: No (If yes to above patient needs a Covid-19 test) HPI Shaheed Bobo is a 20 y.o. female who presents to the emergency department with fevers, chills since earlier today. Patient had a on 05/02 for intracranial hypertension. States that the fevers and chills started earlier today gradually gotten worse. Denies chest pain, shortness of breath, worsening abdominal pain, nausea, vomiting, dysuria, urinary frequency, urgency. Patient denies increased vaginal discharge. She does have some vaginal pain and hematuria. Nursing Notes were reviewed. REVIEW OF SYSTEMS (2+ for level 4; 10+ for level 5) Review of Systems Constitutional: Positive for chills and fever. Negative for fatigue. HENT: Negative for congestion and rhinorrhea. Eyes: Negative for visual disturbance. Respiratory: Negative for cough, chest tightness, shortness of breath and wheezing. Cardiovascular: Negative for chest pain. Gastrointestinal: Negative for abdominal pain, constipation, diarrhea, nausea and vomiting. Genitourinary: Positive for hematuria, vaginal bleeding and vaginal pain. Negative for dysuria, frequency and vaginal discharge. Musculoskeletal: Negative for back pain and neck pain. Neurological: Negative for dizziness, weakness, numbness and headaches. PAST MEDICAL HISTORY Past Medical History: Diagnosis Date ? ADHD ? Anxiety ? IIH (idiopathic intracranial hypertension) SURGICAL HISTORY History reviewed. No pertinent surgical history. CURRENT MEDICATIONS Previous Medications ACETAZOLAMIDE (DIAMOX) 500 MG EXTENDED RELEASE CAPSULE Take 1 capsule by mouth every 12 hours DOCUSATE SODIUM (COLACE) 100 MG CAPSULE Take 1 capsule by mouth 2 times daily as needed for Constipation FERROUS SULFATE (IRON 325) 325 (65 FE) MG TABLET Take 1 tablet by mouth 2 times daily (with meals) IBUPROFEN (ADVIL;MOTRIN) 600 MG TABLET Take 1 tablet by mouth every 6 hours OXYCODONE (ROXICODONE) 5 MG IMMEDIATE RELEASE TABLET Take 1 tablet by mouth every 6 hours as needed for Pain for up to 5 days. VIT-FE FUMARATE-FA ( VITAMIN) 27-1 MG TABS TABLET Take 1 tablet by mouth daily ALLERGIES Patient has no known allergies. FAMILY HISTORY History reviewed. No pertinent family history. SOCIAL HISTORY Social History Socioeconomic History ? Marital status: Single Spouse name: None ? Number of children: None ? Years of education: None ? Highest education level: None Occupational History ? None Tobacco Use ? Smoking status: Never Smoker ? Smokeless tobacco: Never Used Vaping Use ? Vaping Use: Never used Substance and Sexual Activity ? Alcohol use: Never ? Drug use: Never ? Sexual activity: Yes Partners: Male Other Topics Concern ? None Social History Narrative ? None Social Determinants of Health Financial Resource Strain: ? Difficulty of Paying Living Expenses: Not on file Food Insecurity: ? Worried About Running Out of Food in the Last Year: Not on file ? Ran Out of Food in the Last Year: Not on file Transportation Needs: ? Lack of Transportation (Medical): Not on file ? Lack of Transportation (Non-Medical): Not on file Physical Activity: ? Days of Exercise per Week: Not on file ? Minutes of Exercise per Session: Not on file Stress: ? Feeling of Stress : Not on file Social Connections: ? Frequency of Communication with Friends and Family: Not on file ? Frequency of Social Gatherings with Friends and Family: Not on file ? Attends Advent Services: Not on file ? Active Member of Clubs or Organizations: Not on file ? Attends Club or Organization Meetings: Not on file ? Marital Status: Not on file Intimate Partner Violence: ? Fear of Current or Ex-Partner: Not on file ? Emotionally Abused: Not on file ? Physically Abused: Not on file ? Sexually Abused: Not on file Housing Stability: ? Unable to Pay for Housing in the Last Year: Not on file ? Number of Places Lived in the Last Year: Not on file ? Unstable Housing in the Last Year: Not on file SCREENINGS [place] Coma Scale Eye Opening: Spontaneous Best Verbal Response: Oriented Best Motor Response: Obeys commands [place] Coma Scale Score: 15 PHYSICAL EXAM (up to 7 for level 4, 8 or more for le (more content not included)... 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 CARROLL: 2000 Requested By: LILLIE CALDERON Order Number: [id number] Reading MD: Lillie Calderon Measurements Intervals [place] Rate: 137 P: 54 VT: 136 QRS: 16 QRSD: 99 T: 26 QT: 286 QTc: 432 Interpretive Statements Sinus tachycardia Low voltage, precordial leads no new gio, no new std Electronically Signed On 05-07-2021 2:51:00 EDT by Lillie Calderon [facility] Lillie Calderon M D - 05/07/2021 [facility] Test Date: 2021-05-07 Pat Name: SHAHEED BOBO Department: [facility] Room: 44 Gender: F 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 Sales Assistant: PARAG : 2000 Requested By: LILLIE CALDERON Order Number: [id number] Reading MD: Lillie Calderon Measurements Intervals [place] Rate: 137 P: 54 VT: 136 QRS: 16 QRSD: 99 T: 26 QT: 286 QTc: 432 Interpretive Statements Sinus tachycardia Low voltage, precordial leads no new gio, no new std Electronically Signed On 05-07-2021 2:51:00 EDT by Lillie Calderon [facility] Work Phone: [facility] Work Phone: Hemogram w/ Autodiffon 05-07 Abs Baso Cnt 0.0 10*3/uL Normal 0.0-0.2 [facility] Comment on above: Performed By: #### C /FUN #### [address] [phone] Abs Neutrophile Cnt 9.9 10*3/uL High 1.8-7.0 [facility] Comment on above: Performed By: #### C /FUN #### [address] [phone] Basophils/100 WBC (Bld) 0.2 % Normal 0.0-2.0 [facility] Comment on above: Performed By: #### C /FUN #### [address] Eosinophils (Bld) [#/Vol] 0.1 10*3/uL Normal 0.0-0.5 [facility] Comment on above: Performed By: #### C /FUN #### [facility] [address] [place], [place] Eosinophils/100 WBC (Bld) 0.5 % Low 1.0-6.0 [facility] Comment on above: Performed By: #### C /FUN #### [facility] [address] [place], [place] Erythrocyte distribution width (RBC) [Ratio] 16.6 % High 11.5-14.5 [facility] Comment on above: Performed By: #### C /FUN #### [place] [address] [place], [place] Granulocytes/100 WBC (Bld) 82.1 % High 40.0-80.0 [facility] Comment on above: Performed By: #### C /FUN #### [place] [place], [place] Hematocrit (Bld) [Volume fraction] 23.7 % Low 35.0-47.0 [facility] Comment on above: Performed By: #### C /FUN #### [place] [place], [place] Hemoglobin (Bld) [Mass/Vol] 7.3 g/dL Low 11.7-16.0 [facility] Comment on above: Performed By: #### C /FUN #### [place] [place], [place] Lymphocytes (Bld) [#/Vol] 1.2 10*3/uL Normal 1.0-4.3 [facility] Comment on above: Performed By: #### C /FUN #### [place] [place], [place] Lymphocytes/100 WBC (Bld) 9.6 % Low 20.0-40.0 [facility] Comment on above: Performed By: #### C /FUN #### [place] [place], [place] MCH (RBC) [Entitic mass] 25.2 pg Low 26.0-34.0 [facility] Comment on above: Performed By: #### C /FUN #### [place] [place], [place] MCHC 30.8 % Low 32.0-36.0 [facility] Comment on above: Performed By: #### C /FUN #### [facility] [address] [place], [place] MCV (RBC) [Entitic vol] 81.8 fL Normal 79.0-98.0 [facility] Comment on above: Performed By: #### C /FUN #### [place] [place], [place] Monocytes (Bld) [#/Vol] 0.9 10*3/uL High 0.0-0.8 [facility] Comment on above: Performed By: #### C /FUN #### [place] [place], [place] Monocytes/100 WBC (Bld) 7.6 % Normal 2.0-10.0 [facility] Comment on above: Performed By: #### C /FUN #### [place] [place], [place] Platelet mean volume (Bld) [Entitic vol] 6.4 fL Low 7.4-10.4 [facility] Comment on above: Performed By: #### C /FUN #### [place] [place], [place] Platelets (Bld) [#/Vol] 442 10*3/uL High 140-440 [facility] Comment on above: Performed By: #### C /FUN #### [place] [place], [place] RBC (Bld) [#/Vol] 2.90 10*6/uL Low 3.80-5.20 [facility] Comment on above: Performed By: #### C /FUN #### [place] [place], [place] WBC (Bld) [#/Vol] 12.1 10*3/uL High 3.6-10.7 [facility] Comment on above: Performed By: #### C /FUN #### [place] [place], [place] Hepatic Functionon Bilirubin.indirect [Mass/Vol] 0.0 mg/dL Normal 0.0-0.3 [facility] Comment on above: Performed By: #### C /FUN #### [place] [place], [place] Hepatic Function Panelon Bilirubin.indirect [Mass/Vol] 0.0 mg/dL 0.0 - 0.3 mg/dL [facility] Lactate, Sepsison 05-07-2021 Lactate [Moles/Vol] 1.8 mmol/L 0.7 - 2. 0 mmol/L [facility] Test Performed by [facility], [address] [place] [address] - [facility] Lactic Acid, Sepsison 2021 Lactate [Moles/Vol] 1.8 mmol/L Normal 0.7-2.0 [facility] Comment on above: Performed By: #### C SW/V #### [place] [place], [place] No Panel Informationon 05-07 Test Performed by [address] - [facility] Radiology Study observation (narrative) [facility] Work Phone: Respiratory Panel, Molecular , with COVID-19 (Restricted: peds pts or suitable admitted adults)on 05-07-2021 Respiratory Panel Molecular, with COVID NEGATIVE: No targets were detected by the [employer] Upper Respiratory Pathogens PCR Panel. _ Expected Result: Not Detected The [employer] Upper Respiratory Pathogens PCR Panel can detect the following targets: SARS-CoV-2, Adenovirus, Coronavirus 229E, Coronavirus HKU1, Coronavirus NL63, Coronavirus OC43, Human Metapneumovirus, Human Rhinovirus/Enterovirus, Influenza A, Influenza B, Parainfluenza Virus 1, Parainfluenza Virus 2, Parainfluenza Virus 3, Parainfluenza Virus 4, Respiratory Syncytial Virus, Bordetella pertussis, Bordetella parapertussis, Chlamydia pneumoniae, Mycoplasma pneumoniae. Method: Real-time PCR. [facility] Test Performed by [facility], [address] [place] [id number] [facility] Troponin Ion 05-07-2021 Troponin I.cardiac [Mass/Vol] ng/mL Normal 0.000-0.034 [facility] Comment on above: Result Comment: . Performed By: #### C /FUN #### [address] [phone] Troponin x1on 05-07-2021 Troponin I.cardiac [Mass/Vol] ng/mL 0.000 - 0.034 ng/mL [facility] Comment on above: . Test Performed by [address] [address] [facility] US NON OB TRANSVAGINALon Patient Name: SHAHEED BOBO Ultrasound ACCESSION EXAM DATE/TIME PROCEDURE ORDERING PROVIDER [id number] 05/07/2021 04:23 EDT US Transvaginal [id number] -NILE STONE CPT code 94161 Reason For Exam (US Transvaginal) sepsis s/p concern for rpoc Report CLINICAL INFORMATION: Sepsis, status post section A sonogram of the pelvis is performed transvaginally. The uterus is anteverted and measures 16.8 x 16.4 x 9.4 cm. The echogenicity of the myometrium is heterogeneous. The endometrial stripe measures 10.9 mm and is slightly heterogeneous. The right ovary and left ovary are not visualized No free fluid or pelvic masses are noted. IMPRESSIONS: Enlarged heterogeneous uterus with mildly thickened endometrium-this may represent possible blood clots or retained products of conception, but neither entity is certain. Report Dictated on --- Final --- Dictated: 05/07/2021 4:52 am Dictating Physician: MD CRAWFORD WILLIAM Signed Date and Time: 05/07/2021 4:57 am Signed by: MD CRAWFORD WILLIAM Transcribed Date and Time: 05/07/2021 4:52 [facility] Nancy Crawford MD - 05/07/2021 Patient Name: SHAHEED BOBO Ultrasound ACCESSION EXAM DATE/TIME PROCEDURE ORDERING PROVIDER [id number] 05/07/2021 04:23 EDT US Transvaginal [address] [place], [place] [address]SHRUTI SANFORDNEY CPT code 46912 Reason For Exam (US Transvaginal) sepsis s/p concern for rpoc Report CLINICAL INFORMATION: Sepsis, status post section A sonogram of the pelvis is performed transvaginally. The uterus is anteverted and measures 16.8 x 16.4 x 9.4 cm. The echogenicity of the myometrium is heterogeneous. The endometrial stripe measures 10.9 mm and is slightly heterogeneous. The right ovary and left ovary are not visualized No free fluid or pelvic masses are noted. IMPRESSIONS: Enlarged heterogeneous uterus with mildly thickened endometrium-this may represent possible blood clots or retained products of conception, but neither entity is certain. Report Dictated on --- Final --- Dictated: 05/07/2021 4:52 am Dictating Physician: MD CRAWFORD WILLIAM Signed Date and Time: 05/07/2021 4:57 am Signed by: MD CRAWFORD WILLIAM Transcribed Date and Time: 05/07/2021 4:52 [facility] Work Phone: US NON OB TRANSVAGINALOrdere d By: Nancy Crawford on 05-07-2021 [facility] Work Phone: US Transvaginalon 05-07-2021 US Transvaginal Patient Name: SHAHEED BOBO Ultrasound ACCESSION EXAM DATE/TIME PROCEDURE ORDERING PROVIDER [id number] 05/07/2021 04:23 EDT US Transvaginal [id number] -NILE STONE CPT code 42758 Reason For Exam (US Transvaginal) sepsis s/p concern for rpoc Report CLINICAL INFORMATION: Sepsis, status post section A sonogram of the pelvis is performed transvaginally. The uterus is anteverted and measures 16.8 x 16.4 x 9.4 cm. The echogenicity of the myometrium is heterogeneous. The endometrial stripe measures 10.9 mm and is slightly heterogeneous. The right ovary and left ovary are not visualized No free fluid or pelvic masses are noted. IMPRESSIONS: Enlarged heterogeneous uterus with mildly thickened endometrium-this may represent possible blood clots or retained products of conception, but neither entity is certain. Report Dictated on Final Dictated: 05/07/2021 4:52 am Dictating Physician: MD CRAWFORD WILLIAM Signed Date and Time: 05/07/2021 4:57 am Signed by: MD CRAWFORD WILLIAM Transcribed Date and Time: 05/07/2021 4:52 Normal [facility] Urinalysison 05-07-2021 Appearance (U) Clear Clear NA [facility] Comment on above: . Bacteria, UA Negative Negative /[HPF] [facility] Comment on above: . Bilirubin Urine Negative Negative mg/dL [facility] Comment on above: . Color (U) Light-Yellow Lt. Yellow NA [facility] Comment on above: . Glucose, Ur Normal Normal (<70) mg/dL [facility] Comment on above: . Hyaline Casts, UA Negative Negative /[LPF] [facility] Comment on above: . Interpretation and review of laboratory results Abnormal [facility] Ketones Ql (U) Negative Negative mg/dL [facility] Comment on above: . LEUKOCYTES, UA Negative Negative Tyrell/uL [facility] Comment on above: . Nitrite, Urine Negative Negative NA [facility] Comment on above: . Occult Blood,Urine 0.2 mg/dL Abnormal Negative [facility] Comment on above: . pH (U) 7.5 [pH] [facility] Comment on above: . RBC, UA 3-5 Abnormal 0 - 2 /[HPF] [facility] Comment on above: . Specific [place], Urine 1.016 [facility] Comment on above: . Squam Epithel, UA 3-5 3 - 5 /[HPF] [facility] Comment on above: . Total Protein, Urine Negative Negativ e mg/dL [facility] Comment on above: . Urobilinogen, Urine Normal Normal (0-1) mg/dL [facility] Comment on above: . WBC, UA 0-2 0 - 5 /[HPF] [facility] Comment on above: . Test Performed by [address] [facility] Hemoglobinon 05-03-2021 Hemoglobin (Bld) [Mass/Vol] 7.0 g/dL Low 11.7-16.0 [facility] Comment on above: Performed By: #### C TNGP #### [address] [phone] Hemoglobin.gastrointe stinal spec 1 Ql (Stl) 7.0 g/dL Low 11.7 - 16.0 g/dL [facility] Interpretation and review of laboratory results Abnormal [facility] Test Performed by [address] [facility] Leukodepleted Red Cellson Leukodepleted Red Cells Leukodepleted Red Cells: [id number] released 05/02/21 23:14 [facility] Unit Blood Type: O Unit Blood Rh: POS Blood Product Code: AS1 Unit Number: [id number] Unit Status: released Barcoded Unit Number: =[id number] Barcoded Product Code: = Barcoded ABO/Rh: =%5100 Unit Expiration: Normal [facility] Comment on above: Performed By: #### C /FUN #### [address] [id number] CBCon 05-02-2021 Hematocrit (Bld) [Volume fraction] 26.9 % Low 35.0 - 47.0 % [facility] Hemoglobin.gastrointe stinal spec 1 Ql (Stl) 8.6 g/dL Low 11.7 - 16.0 g/dL [facility] Interpretation and review of laboratory results Abnormal [facility] MCH (RBC) [Entitic mass] 25.7 pg Low 26.0 - 34.0 pg [facility] MCHC (RBC) [Mass/Vol] 32.0 % 32.0 - 36.0 % [facility] MCV (RBC) [Entitic vol] 80.3 fL 79.0 - 98.0 fL [facility] Plate[facility] distribution width (Bld) [Ratio] 16.2 % High 11.5 - 14.5 % [facility] Platelet mean volume (Bld) [Entitic vol] 6.8 fL Low 7.4 - 10.4 fL [facility] Platelets (Bld) [#/Vol] 368 10*3/uL 140 - 440 10*3/uL [facility] RBC (Bld) [#/Vol] 3.36 10*6/uL Low 3.80 - 5.2 0 10*6/uL [facility] WBC (Bld) [#/Vol] 12.2 10*3/uL High 3.6 - 10.7 10*3/uL [facility] Test Performed by [facility], [address] [place] [id number] [place] [address] LAB [facility] Comp Metabolic Panelon 05-02 ALP [Catalytic activity/Vol] 81 U/L Normal 38-126 [facility] Comment on above: Performed By: #### C SW/V #### [address] ALT [Catalytic activity/Vol] 14 U/L Normal 0-34 [facility] Comment on above: Result Comment: The ALT test is performed by an updated assay method. Please note that the reference intervals have been changed and are now sex specific. Performed By: #### C SW/V #### [address] Anion gap [Moles/Vol] 9 mmol/L Normal 3-13 [facility] Comment on above: Performed By: #### C SW/V #### [address] AST [Catalytic activity/Vol] 21 U/L Normal 15-46 [facility] Comment on above: Performed By: #### C SW/V #### [address] Bilirubin [Mass/Vol] 0.4 mg/dL Normal 0.2-1.3 [facility] Comment on above: Performed By: #### C SW/V #### [address], [place] Calcium [Mass/Vol] 10.0 mg/dL Normal 8.4-10.4 [facility] Comment on above: Performed By: #### C SW/V #### [facility] [address], [place] CO2 [Moles/Vol] 21 mmol/L Low 22-30 [facility] Comment on above: Performed By: #### C SW/V #### [facility] [address] [place], [place] Creatinine [Mass/Vol] 0.42 mg/dL Low 0.52-1.25 [facility] Comment on above: Performed By: #### C SW/V #### [address] eGFR OTHER > 90.0 Normal >60 [facility] Comment on above: Result Comment: KDIG O guidelines provide the following GFR categories: Stage GFR(ml/min/1.73 m2) Terms G1 >=90 Normal or high G2 60-89 Mildly decreased* G3a 45-59 Mildly to moderately decreased G3b 30-44 Moderately to severely decreased G4 15-29 Severely decreased G5 <15 Kidney failure *Relative to young adult level. In the absence of evidence of kidney damage, neither GFR category G1 nor G2 fulfill the criteria for CKD. The CKD-EPI equation is validated in individuals 18 years of age and older. Currently the best equation for estimating glomerular filtration rate (GFR) from serum creatinine in children is the Bedside Tomlinson equation. It is less accurate in patients with extremes of muscle mass, restriction of dietary protein, ingestion of creatine, extra-renal metabolism of creatinine, or treatment with medications that affect renal tubular creatinine secretion. Performed By: #### C SW/V #### [address] [address] [place], [place] GFR/1.73 sq M.predicted among blacks MDRD (S/P/Bld) [Vol rate/Area] mL/min/{1.73_m2} Normal >60 [facility] Comment on above: Performed By: #### C SW/V #### [address] [address] [place], [place] Glucose [Mass/Vol] 147 mg/dL High 70-100 [facility] Comment on above: Performed By: #### C SW/V #### [facility] [address] [place], [place] Protein [Mass/Vol] 7.2 g/dL Normal 6.3-8.2 [facility] Comment on above: Performed By: #### C SW/V #### [address] [address] [address] [place], [place] Urea nitrogen [Mass/Vol] 8 mg/dL Low 9-20 [facility] Comment on above: Performed By: #### C SW/V #### [address] [address] [address] [place], [place] Albumin [Mass/Vol] 4.0 g/dL Normal 3.5-5.0 [facility] Comment on above: Performed By: #### C SW/V #### [address] [address] [address] [place], [place] Chloride [Moles/Vol] 106 mmol/L Normal 98-107 [facility] Comment on above: Performed By: #### C SW/V #### [address] [address] [address] [place], [place] Potassium [Moles/Vol] 4.4 mmol/L Normal 3.5-5.1 [facility] Comment on above: Performed By: #### C SW/V #### [address] [address] [address] [place], [place] Sodium [Moles/Vol] 135 mmol/L Normal 135-145 [facility] Comment on above: Performed By: #### C SW/V #### [address] [address] [address] [place], [place] Comprehensive Metabolic Pane pal 05-02-2021 Albumin [Mass/Vol] 4.0 g/dL 3.5 - 5.0 g/dL [facility] ALP (Bld) [Catalytic activity/Vol] 81 U/L 38 - 126 U/L [facility] ALT [Catalytic activity/Vol] 14 U/L 0 - 34 U/L [facility] Comment on above: The ALT test is perf ormed by an updated assay method. Please note that the reference intervals have been changed and are now sex specific. Anion gap [Moles/Vol] 9 mmol/L 3 - 13 mmol/L [facility] AST [Catalytic activity/Vol] 21 U/L 15 - 46 U/L [facility] Bilirubin [Mass/Vol] 0.4 mg/dL 0.2 - 1 .3 mg/dL [facility] Calcium [Mass/Vol] 10.0 mg/dL 8.4 - 10. 4 mg/dL [facility] Chloride [Moles/Vol] 106 mmol/L 98 - 10 7 mmol/L [facility] CO2 [Moles/Vol] 21 mmol/L Low 22 - 30 mmol/L [facility] Creatinine [Mass/Vol] 0.42 mg/dL Low 0.52 - 1.25 mg/dL [facility] EGFR IF NonAfrican Polish >90.0 >60 mL/min [facility] Comment on above: KDIGO guidelines pro vide the following GFR categories: Stage GFR(ml/min/1.73 m2) Terms G1 >=90 Normal or high G2 60-89 Mildly decreased* G3a 45-59 Mildly to moderately decreased G3b 30-44 Moderately to severely decreased G4 15-29 Severely decreased G5 <15 Kidney failure *Relative to young adult level. In the absence of evidence of kidney damage, neither GFR category G1 nor G2 fulfill the criteria for CKD. The CKD-EPI equation is validated in individuals 18 years of age and older. Currently the best equation for estimating glomerular filtration rate (GFR) from serum creatinine in children is the Bedside Tomlinson equation. It is less accurate in patients with extremes of muscle mass, restriction of dietary protein, ingestion of creatine, extra-renal metabolism of creatinine, or treatment with medications that affect renal tubular creatinine secretion. Free PSA/Total PSA [Mass fraction] 7.2 g/dL 6.3 - 8.2 g/dL [facility] GFR/1.73 sq M.predicted among blacks MDRD (S/P/Bld) [Vol rate/Area] mL/min/{1.73_m2} >60 mL/min [facility] Glucose [Mass/Vol] 147 mg/dL High 70 - 100 mg/dL [facility] Interpretation and review of laboratory results Abnormal [facility] Potassium [Moles/Vol] 4.4 mmol/L 3.5 - 5.1 mmol/L [facility] Sodium [Moles/Vol] 135 mmol/L 135 - 145 mmol/L [facility] Urea nitrogen (BldV) [Mass/Vol] 8 mg/dL Low 9 - 20 mg/dL [facility] Test Performed by [id number] [place] [address] LAB [facility] Hem[facility] 05-02-2021 Erythrocyte distribution width (RBC) [Ratio] 16.2 % High 11.5-14.5 [facility] Comment on above: Performed By: #### C SW/V #### [address] [address] [place], [place] Hematocrit (Bld) [Volume fraction] 26.9 % Low 35.0-47.0 [facility] Comment on above: Performed By: #### C SW/V #### [address] Hemoglobin (Bld) [Mass/Vol] 8.6 g/dL Low 11.7-16.0 [facility] Comment on above: Performed By: #### C SW/V #### [address] MCH (RBC) [Entitic mass] 25.7 pg Low 26.0-34.0 [facility] Comment on above: Performed By: #### C SW/V #### [address] MCHC 32.0 % Normal 32.0-36.0 [facility] Comment on above: Performed By: #### C SW/V #### [address] [address] [place], [place] MCV (RBC) [Entitic vol] 80.3 fL Normal 79.0-98.0 [facility] Comment on above: Performed By: #### C SW/V #### [address] Platelet mean volume (Bld) [Entitic vol] 6.8 fL Low 7.4-10.4 [facility] Comment on above: Performed By: #### C SW/V #### [address] Platelets (Bld) [#/Vol] 368 10*3/uL Normal 140-440 [facility] Comment on above: Performed By: #### C SW/V #### [address] [place] [address] [place], [place] RBC (Bld) [#/Vol] 3.36 10*6/uL Low 3.80-5.20 [facility] Comment on above: Performed By: #### C SW/V #### [address] [address] [address] [place], [place] WBC (Bld) [#/Vol] 12.2 10*3/uL High 3.6-10.7 [facility] Comment on above: Performed By: #### C SW/V #### [address] PREPARE RBC (CROSSMATCH), 1 Unitson 05-02-2021 ABO and Rh group Nom (Bld) 5100 [facility] Blood product unit ID (Dose) [#] [id number] [facility] Dispense Status Blood Bank released [facility] Expiration Date [id number] [facility] Product Code Blood Bank [id number] [facility] TS GELon 05-02-2021 TS GEL ABO Group: O Rh, Gel: POS Antibody Screen Gel: NEG Normal [facility] Comment on above: Performed By: #### C /FUN #### [address] TYPE AND SCREENon 05-02-2021 ABO Grouping O [facility] Rh Type Positive [facility] Test Performed by [facility], [facility] [place] [address] [facility] LAB [facility] Progress Noteon 04-30-2021 Outpatient Clerk Authentication Interface Message Text Visit Subjective: Shaheed Bobo is being seen today for an obstetrical visit. She is at 38w6d gestation. Her obstetrical history is significant for papillary edema secondary to intracranial hypertension, obesity, anxiety and + COVID 02/20/21. history fully reviewed. She is accompanied by her significant other. Review of Systems All other systems reviewed and are negative. Objective: BP 118/68 Wt (!) 115.7 kg (255 lb) Physical Exam Vitals reviewed. Constitutional: Appearance: She is well-developed and well-nourished. Pulmonary: Effort: Pulmonary effort is normal. Abdominal: Comments: gravid Musculoskeletal: General: Normal range of motion. Neurological: Mental Status: She is alert and oriented to person, place, and time. FHT: 161 Presentation: Cephalic Uterine Size: N/A BPP 09/24 see imaging report for full details Assessment/Plan: Shaheed Bobo is a 20 y.o. at 38w6d with: Active Non-Hospital Problems Diagnosis Date Noted Personal history of COVID-19 02/19/2021 Priority: High Sx since 02/05 worsened 02/16/21 COVID, flu and strep neg 02/05, reports negative covid 02/12. Dry cough, nasal congestion Afebrile 02/19/21 repeat COVID, strep and influenza testing. 02/20 + COVID 03/19/21 sx resolved. Weekly surveillance, growth Q4 weeks Reviewed on 04/30/2021 Supervision of other high risk , antepartum 01/08/2021 Priority: High PLAN OF CARE MD/OB APPOINTMENTS Genetic screening:Care established at 21 weeks. Carrier/NIPT: declined How often should patient be evaluated? q 2 weeks to 32 weeks then weekly until delivery Work restrictions: NA EVALUATION surveillance: weekly due to COVID in 3rd trimester Ultrasound: monthly growth DELIVERY PLAN Hospital: [facility] 03/19/21 Pt desires primary c/s due to hx intracranial hypertension with papilledema 05/07/21 0915 [facility] L&D C/S with [facility]IMO (pt aware, form given) CK GBS culture: negative 04/05 Contraception: likely OCP if OK from neuro perspective : Planning, would like to schedule via telehealth-requested Ped: [facility] Reviewed on 04/30/2021 Late care, antepartum 01/08/2021 Priority: High Papilledema 01/02/2021 Priority: High Admission on 01/01/2021 21w6d who was transferred from [facility] ED after confirmed in the setting of papilledema and hypertension. Patient reported a positive home test in August 2020. Presented to emblem maker 01/01 after 1-week history of headache and blurry vision. Blood pressures were initially severe in OSH and magnesium sulfate was started for seizure ppx. A head CT was negative for intracranial processes. Patient was transferred to [facility] for higher level of care and labs were obtained. Blood pressures were normotensive on arrival and have remained normotensive throughout entire hospital stay. PreE labs and 24 hour urine protein were normal, low likelihood for Pre-Eclampsia. 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 Neurology was then consulted. The patient underwent MRI/A/V which were all negative for acute process. Lumbar puncture was performed which confirmed diagnosis of IIH with an elevated opening pressure of 53, followed by 32cc drainage of CSF. Pt has had intermittent headaches since that have slowly improved after initiation of diamox per neurology recommendation. 01/05/21 discharge home with strict follow up instructions with neurology and need to establish care with Counts include 234 beds at the [facility]. Continue taking diamox BID for headaches. 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 Unable to reschedule before delivery Recommend neuro follow up when inpt for delivery 04/30/21- no recent headaches/visual concerns Reviewed on 04/30/2021 Anxiety Priority: Medium No meds EPDS 9 at 26 weeks. [facility] information and card for contact provided. Stable. Provided [employer] to address financial concerns and insurance post delivery for . Reinforced pre and [facility] support. Reviewed on 04/30/2021 headache in second trimester 01/08/2021 Priority: Medium See Papilledema 02/19/21 Automatic BP cuff ordered for home use due to surge in COVID Obesity during , antepartum 01/08/2021 Priority: Medium PP BMI 34 care established at 21 weeks Recommended weight gain 11-20 pounds (44 lb wit ) Daily exercise encouraged Nutrition consult:declined 04/23/21 Glucose log reviewed. Target glucoses FBS 67-79. 1hr pp 93-120. Will discontinue blood sugar checks Reviewed on 05/01/19 (more content not included)... [facility] Progress Noteon 04-23-2021 Outpatient Clerk Authentication Interface Message Text Visit Subjective: Shaheed Bobo is being seen today for an obstetrical visit. She is at 37w6d gestation. Her obstetrical history is significant for papillary edema secondary to intracranial hypertension, obesity, anxiety and + COVID 02/20/21 history fully reviewed. She is unaccompanied. Signs and Symptoms of Labor Shaheed presents with no labor symptoms. Movement Shaheed reports normal movement. Vaginal Bleeding During Shaheed denies any vaginal bleeding at this time. Vaginal DischargeSsureshthleonel denies any unusual or increase in vaginal discharge. Rupture of Membranes/Leaking Fluid The patient denies any leaking of fluid at this time. Signs and Symptoms of Preeclampsia Shaheed is presenting with no preeclampsia symptoms. Pain Scale Shaheed denies any signs or symptoms of pain. Review of Systems Neurological: Negative for headaches (no further issues with headaches with computer use). All other systems reviewed and are negative. Objective: BP 126/78 Wt (!) 116.1 kg (256 lb) Physical Exam Vitals reviewed. Constitutional: Appearance: She is well-developed and well-nourished. HENT: Head: Atraumatic. Eyes: Extraocular Movements: EOM normal. Pulmonary: Effort: Pulmonary effort is normal. Abdominal: Comments: Gravid Musculoskeletal: General: Normal range of motion. Neurological: Mental Status: She is alert and oriented to person, place, and time. Psychiatric: Mood and Affect: Mood and affect normal. Behavior: Behavior normal. Thought Content: Thought content normal. Judgment: Judgment normal. FHT: 151 Presentation: Cephalic Uterine Size: N/A BPP 8/8 with normal NELSON Assessment/Plan: Shaheed Bobo is a 20 y.o. at 37w6d with: Active Non-Hospital Problems Diagnosis Date Noted Personal history of COVID-19 02/19/2021 Priority: High Sx since 02/05 worsened 02/16/21 COVID, flu and strep neg 02/05, reports negative covid 02/12. Dry cough, nasal congestion Afebrile 02/19/21 repeat COVID, strep and influenza testing. 02/20 + COVID 03/19/21 sx resolved. Weekly surveillance, growth Q4 weeks Reviewed on 04/23/2021 Supervision of other high risk , antepartum 01/08/2021 Priority: High PLAN OF CARE MD/OB APPOINTMENTS Genetic screening:Care established at 21 weeks. Carrier/NIPT: declined How often should patient be evaluated? q 2 weeks to 32 weeks then weekly until delivery Work restrictions: NA EVALUATION surveillance: weekly due to COVID in 3rd trimester Ultrasound: monthly growth DELIVERY PLAN Hospital: [facility] 03/19/21 Pt desires primary c/s due to hx intracranial hypertension with papilledema 05/07/21 0915 [facility] L&D C/S with [facility]IMO (pt aware, form given) CK GBS culture: negative 04/05 Contraception: likely OCP if OK from neuro perspective : Planning, would like to schedule via telehealth-requested Ped: [facility] Reviewed on 04/23/2021 Late care, antepartum 01/08/2021 Priority: High Papilledema 01/02/2021 Priority: High Admission on 01/01/2021 21w6d who was transferred from [facility] ED after confirmed in the setting of papilledema and hypertension. Patient reported a positive home test in August 2020. Presented to emblem maker 01/01 after 1-week history of headache and blurry vision. Blood pressures were initially severe in OSH and magnesium sulfate was started for seizure ppx. A head CT was negative for intracranial processes. Patient was transferred to [facility] for higher level of care and labs were obtained. Blood pressures were normotensive on arrival and have remained normotensive throughout entire hospital stay. PreE labs and 24 hour urine protein were normal, low likelihood for Pre-Eclampsia. 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 Neurology was then consulted. The patient underwent MRI/A/V which were all negative for acute process. Lumbar puncture was performed which confirmed diagnosis of IIH with an elevated opening pressure of 53, followed by 32cc drainage of CSF. Pt has had intermittent headaches since that have slowly improved after initiation of diamox per neurology recommendation. 01/05/21 discharge home with strict follow up instructions with neurology and need to establish care with Counts include 234 beds at the [facility]. Continue taking diamox BID for headaches. 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 Unable to reschedule before delivery Recommend neuro follow up when inpt for delivery Reviewed on 04/23/2021 Anxiety (more content not included)... [facility] Progress Noteon 04-16-2021 Outpatient Clerk Authentication Interface Message Text Visit Subjective: Shaheed Bobo is being seen today for an obstetrical visit. She is at 36w6d gestation. Her obstetrical history is significant for papillary edema secondary to intracranial hypertension, obesity, anxiety and + COVID 02/20/21. history fully reviewed. She is accompanied by her significant other. Signs and Symptoms of Labor Shaheed presents with no labor symptoms. Movement Shaheed reports normal movement. Vaginal Bleeding During Shaheed denies any vaginal bleeding at this time. Vaginal DischargeSsureshtha denies any unusual or increase in vaginal discharge. Rupture of Membranes/Leaking Fluid The patient denies any leaking of fluid at this time. Signs and Symptoms of Preeclampsia Shaheed is presenting with no preeclampsia symptoms. Pain Scale Shaheed denies any signs or symptoms of pain. Review of Systems Neurological: Positive for headaches (occasional occurance at work when on computer. Denies any MORRIS today). All other systems reviewed and are negative. Objective: BP 114/72 Wt (!) 114.5 kg (252 lb 6.4 oz) Urine +1 protein. Denies PEC symptoms, no urinary symptoms Normotensive Physical Exam Vitals reviewed. Constitutional: Appearance: She is well-developed and well-nourished. HENT: Head: Atraumatic. Pulmonary: Effort: Pulmonary effort is normal. Abdominal: Comments: gravid Musculoskeletal: General: Normal range of motion. Neurological: Mental Status: She is alert and oriented to person, place, and time. Psychiatric: Mood and Affect: Mood and affect normal. Behavior: Behavior normal. Thought Content: Thought content normal. Judgment: Judgment normal. FHT: 153 Presentation: Cephalic Uterine Size: N/A growth us today See imaging for full details. EFW 3504gm 83 percentile, AC >99percentile with normal NELSON. Reinforced importance of glycemic control. Pt has not completed 1hr gct but reports normal fbs/1hr pp. Requested again for glucose logs. Assessment/Plan: Shaheed Bobo is a 20 y.o. at 36w6d with: Active Non-Hospital Problems Diagnosis Date Noted Personal history of COVID-19 02/19/2021 Priority: High Sx since 02/05 worsened 02/16/21 COVID, flu and strep neg 02/05, reports negative covid 02/12. Dry cough, nasal congestion Afebrile 02/19/21 repeat COVID, strep and influenza testing. 02/20 + COVID 03/19/21 sx resolved. Weekly surveillance, growth Q4 weeks Reviewed on 04/16/2021 Supervision of other high risk , antepartum 01/08/2021 Priority: High PLAN OF CARE MD/OB APPOINTMENTS Genetic screening:Care established at 21 weeks. Carrier/NIPT: declined How often should patient be evaluated? q 2 weeks to 32 weeks then weekly until delivery Work restrictions: NA EVALUATION surveillance: weekly due to COVID in 3rd trimester Ultrasound: monthly growth DELIVERY PLAN Hospital: [facility] 03/19/21 Pt desires primary c/s due to hx intracranial hypertension with papilledema 05/07/21 0915 [facility] L&D C/S with [facility] (pt aware, form given) CK GBS culture: negative 04/05 Contraception: likely OCP if OK from neuro perspective : Planning, would like to schedule via telehealth Ped: [facility] Reviewed on 04/16/2021 Late care, antepartum 01/08/2021 Priority: High Papilledema 01/02/2021 Priority: High Admission on 01/01/2021 21w6d who was transferred from [facility] ED after confirmed in the setting of papilledema and hypertension. Patient reported a positive home test in August 2020. Presented to emblem maker 01/01 after 1-week history of headache and blurry vision. Blood pressures were initially severe in OSH and magnesium sulfate was started for seizure ppx. A head CT was negative for intracranial processes. Patient was transferred to [facility] for higher level of care and labs were obtained. Blood pressures were normotensive on arrival and have remained normotensive throughout entire hospital stay. PreE labs and 24 hour urine protein were normal, low likelihood for Pre-Eclampsia. 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 Neurology was then consulted. The patient underwent MRI/A/V which were all negative for acute process. Lumbar puncture was performed which confirmed diagnosis of IIH with an elevated opening pressure of 53, followed by 32cc drainage of CSF. Pt has had intermittent headaches since that have slowly improved after initiation of diamox per neurology recommendation. 01/05/21 discharge home with strict follow up instructions with neurology and need to establish care with Counts include 234 beds at the [facility]. Continue taking diamox BID for headaches. Stopped reglan as not needed 01/08: working to schedule neurology appointment 01/19 f/u with Dr Rocha Continue Diamox 500mg BID, f/u 2 mon (more content not included)... Normal [facility] Progress Noteon 04-09-2021 Outpatient Clerk Authentication Interface Message Text Visit Subjective: Shaheed Bobo is being seen today for an obstetrical visit. She is at 35w6d gestation. Her obstetrical history is significant for papillary edema secondary to intracranial hypertension, obesity, anxiety and + COVID 02/20/21. history fully reviewed. She is accompanied by her mother. Shaheed denies any cramping, contractions, vaginal bleeding, unusual or increase in vaginal discharge, signs and symptoms of pre-eclampsia, or leaking of any fluid. Patient with positive movement. Review of Systems All other systems reviewed and are negative. Objective: BP 133/73 Wt (!) 115 kg (253 lb 9.6 oz) Physical Exam Nursing note and vitals reviewed. Constitutional: Appearance: She is well-developed and well-nourished. Pulmonary: Effort: Pulmonary effort is normal. Abdominal: General: Abdomen is gravid. Musculoskeletal: General: Normal range of motion. Neurological: Mental Status: She is alert. Skin: General: Skin is warm and dry. Psychiatric: Mood and Affect: Mood and affect normal. Behavior: Behavior normal. FHT: positive by US today Presentation: see US Uterine Size: see growth from 03/19 Ultrasound: see ultrasound report from today Assessment/Plan: Shaheed Bobo is a 20 y.o. at 35w6d with: Active Non-Hospital Problems Diagnosis Date Noted Personal history of COVID-19 02/19/2021 Sx since 02/05 worsened 02/16/21 COVID, flu and strep neg 02/05, reports negative covid 02/12. Dry cough, nasal congestion Afebrile 02/19/21 repeat COVID, strep and influenza testing. 02/20 + COVID 03/19/21 sx resolved. Weekly surveillance, growth Q4 weeks Reviewed on 04/09/2021 ADHD Anxiety No meds EPDS 9 at 26 weeks. [facility] information and card for contact provided. Stable. 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 Reviewed on 04/09/2021 headache in second trimester 01/08/2021 See Papilledema 02/19/21 Automatic BP cuff ordered for home use due to surge in COVID No complaints F/u with Neurology 04/13/21 Reviewed on 04/09/2021 Supervision of other high risk , antepartum 01/08/2021 PLAN OF CARE MD/OB APPOINTMENTS Genetic screening:Care established at 21 weeks. Carrier/NIPT: declined How often should patient be evaluated? q 2 weeks to 32 weeks then weekly until delivery Work restrictions: NA EVALUATION surveillance: weekly due to COVID in 3rd trimester Ultrasound: monthly growth DELIVERY PLAN Hospital: [facility] 03/19/21 Pt desires primary c/s due to hx intracranial hypertension with papilledema 05/07/21 0915 [facility] L&D C/S with PRIMO (pt aware, form next visit) CK GBS culture: negative 04/05 Contraception: likely OCP if OK from neuro perspective : Planning, would like to schedule via telehealth Ped: [facility] Reviewed on 04/09/2021 Late care, antepartum 01/08/2021 Obesity during , antepartum 01/08/2021 PP BMI 34 care established at 21 weeks Recommended weight gain 11-20 pounds (36 lb to date) Daily exercise encouraged Nutrition consult:declined 03/26 weather limited ability to complete 1hr. Plans to do this week Did not complete 1hr GCT. Recommend pattern testing. Patient admits has been pattern testing, did not bring log to appointment today Per patient fastings 70s, 1hr PP 90s - will send via My Chart upon return home Reviewed on 04/09/2021 Papilledema 01/02/2021 Admission on 01/01/2021 21w6d who was transferred from [facility] ED after confirmed in the setting of papilledema and hypertension. Patient reported a positive home test in August 2020. Presented to emblem maker 01/01 after 1-week history of headache and blurry vision. Blood pressures were initially severe in OSH and magnesium sulfate was started for seizure ppx. A head CT was negative for intracranial processes. Patient was transferred to [facility] for higher level of care and labs were obtained. Blood pressures were normotensive on arrival and have remained normotensive throughout entire hospital stay. PreE labs and 24 hour urine protein were normal, low likelihood for Pre-Eclampsia. 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 Neurology was then consulted. The patient underwent MRI/A/V which were all negative for acute process. Lumbar puncture was performed which confirmed diagnosis of IIH with an elevated opening pressure of 53, followed by 32cc drainage of CSF. Pt has had intermittent headaches since that have slowly improved after initiation of diamox per neurology recommendation. 01/05/21 discharge home with strict follow up instructions with neurology and need to establish care with Counts include 234 beds at the [facility]. Continue taking diamox BID for headaches. Stopped reglan as not needed 01/08: [facility] [place] (more content not included)... [facility] Progress Noteon 04-02-2021 Outpatient Clerk Authentication Interface Message Text Visit Subjective: Shaheed Bobo is being seen today for an obstetrical visit. She is at 34w6d gestation. Her obstetrical history is significant for papillary edema secondary to intracranial hypertension, obesity, anxiety and + COVID 02/20/21. history fully reviewed. She is unaccompanied. Signs and Symptoms of Labor Shaheed presents with no labor symptoms. Movement Shaheed reports normal movement. Vaginal Bleeding During Shaheed denies any vaginal bleeding at this time. Vaginal DischargeSsureshthleonel denies any unusual or increase in vaginal discharge. Rupture of Membranes/Leaking Fluid The patient denies any leaking of fluid at this time. Signs and Symptoms of Preeclampsia Shaheed is presenting with no preeclampsia symptoms. Pain Scale Shaheed denies any signs or symptoms of pain. Review of Systems Neurological: Negative for headaches (denies any recent headaches. Appt with neurology 04/13/21). All other systems reviewed and are negative. Objective: BP 118/62 Pulse 98 Wt (!) 112.1 kg (247 lb 3.2 oz) Physical Exam Vitals reviewed. Constitutional: Appearance: She is well-developed and well-nourished. HENT: Head: Atraumatic. Eyes: Extraocular Movements: EOM normal. Pulmonary: Effort: Pulmonary effort is normal. Abdominal: Comments: gravid Neurological: Mental Status: She is alert and oriented to person, place, and time. Skin: General: Skin is warm and dry. Psychiatric: Mood and Affect: Mood and affect normal. Behavior: Behavior normal. Thought Content: Thought content normal. Judgment: Judgment normal. 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 at 34w6d with: Active Non-Hospital Problems Diagnosis Date Noted Personal history of COVID-19 02/19/2021 Priority: High Sx since 02/05 worsened 02/16/21 COVID, flu and strep neg 02/05, reports negative covid 02/12. Dry cough, nasal congestion Afebrile 02/19/21 repeat COVID, strep and influenza testing. 02/20 + COVID 03/19/21 sx resolved. Weekly surveillance Supervision of other high risk , antepartum 01/08/2021 Priority: High PLAN OF CARE MD/OB APPOINTMENTS Genetic screening:Care established at 21 weeks. Carrier/NIPT: declined How often should patient be evaluated? q 2 weeks to 32 weeks then weekly until delivery Work restrictions: NA EVALUATION surveillance:weekly due to COVID in 3rd trimester Ultrasound: monthly growth DELIVERY PLAN Hospital: [facility] 03/19/21 Pt desires primary c/s due to hx intracranial hypertension with papilledema GBS culture: Contraception: likely OCP if OK from neuro perspective :Planning Ped:[facility] Late care, antepartum 01/08/2021 Priority: High Papilledema 01/02/2021 Priority: High Admission on 01/01/2021 21w6d who was transferred from [facility] ED after confirmed in the setting of papilledema and hypertension. Patient reported a positive home test in August 2020. Presented to emblem maker 01/01 after 1-week history of headache and blurry vision. Blood pressures were initially severe in OSH and magnesium sulfate was started for seizure ppx. A head CT was negative for intracranial processes. Patient was transferred to [facility] for higher level of care and labs were obtained. Blood pressures were normotensive on arrival and have remained normotensive throughout entire hospital stay. PreE labs and 24 hour urine protein were normal, low likelihood for Pre-Eclampsia. 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 Neurology was then consulted. The patient underwent MRI/A/V which were all negative for acute process. Lumbar puncture was performed which confirmed diagnosis of IIH with an elevated opening pressure of 53, followed by 32cc drainage of CSF. Pt has had intermittent headaches since that have slowly improved after initiation of diamox per neurology recommendation. 01/05/21 discharge home with strict follow up instructions with neurology and need to establish care with Counts include 234 beds at the [facility]. Continue taking diamox BID for headaches. Stopped reglan as not needed 01/08: working to schedule neurology appointment 01/19 f/u with Dr Rocha Continue Diamox 500mg BID, f/u 2 months 04/02/21 asymptomatic F/u neurology 04/13/21 Reviewed on 04/02/2021 Anxiety Priority: Medium no meds EPDS 9 at 26 weeks. [facility] information and card for contact provided. Stable. Provided ABRADING MACHINE TENDER to address financial concerns and insurance post delivery for infant 03/26/21 No c/o Reviewed on 03/26/2021 headache in second trimester 01/08/2021 Priority: Medium See Papilledema 02/19/21 Automatic BP cu (more content not included)... Normal [facility] Progress Noteon 03-26-2021 Outpatient Clerk Authentication Interface Message Text Visit Subjective: Shaheed Bobo is being seen today for an obstetrical visit. She is at 33w6d gestation. Her obstetrical history is significant for papillary edema secondary to intracranial hypertension, obesity, anxiety and + COVID 02/20/21. history fully reviewed. She is accompanied by her significant other. Signs and Symptoms of Labor Shaheed presents with no labor symptoms. Movement Shaheed reports normal movement. Vaginal Bleeding During Shaheed denies any vaginal bleeding at this time. Vaginal DischargeSsureshtha denies any unusual or increase in vaginal discharge. Rupture of Membranes/Leaking Fluid The patient denies any leaking of fluid at this time. Signs and Symptoms of Preeclampsia Shaheed is presenting with no preeclampsia symptoms. Pain Scale Shaheed denies any signs or symptoms of pain. Review of Systems All other systems reviewed and are negative. Objective: BP 116/70 Wt (!) 111.3 kg (245 lb 6.4 oz) Physical Exam Vitals reviewed. Constitutional: Appearance: She is well-developed and well-nourished. HENT: Head: Normocephalic and atraumatic. Eyes: Extraocular Movements: EOM normal. Pulmonary: Effort: Pulmonary effort is normal. Abdominal: Comments: gravid Neurological: Mental Status: She is alert and oriented to person, place, and time. Psychiatric: Mood and Affect: Mood and affect normal. Behavior: Behavior normal. Thought Content: Thought content normal. Judgment: Judgment normal. FHT: 157 Presentation: Cephalic Uterine Size: N/A BPP 8/8 with normal NELSON Assessment/Plan: Shaheed Bobo is a 20 y.o. at 33w6d with: Active Non-Hospital Problems Diagnosis Date Noted Personal history of COVID-19 02/19/2021 Priority: High Sx since 02/05 worsened 02/16/21 COVID, flu and strep neg 02/05, reports negative covid 02/12. Dry cough, nasal congestion Afebrile 02/19/21 repeat COVID, strep and influenza testing. 02/20 + COVID 03/19/21 sx resolved. Weekly surveillance Reviewed on 03/26/2021 Supervision of other high risk , antepartum 01/08/2021 Priority: High PLAN OF CARE MD/OB APPOINTMENTS Genetic screening:Care established at 21 weeks. Carrier/NIPT: declined How often should patient be evaluated? q 2 weeks to 32 weeks then weekly until delivery Work restrictions: NA EVALUATION surveillance:weekly due to COVID in 3rd trimester Ultrasound: monthly growth DELIVERY PLAN Hospital: [facility] 03/19/21 Pt desires primary c/s due to hx intracranial hypertension with papilledema GBS culture: Contraception: likely OCP :Planning Ped: Late care, antepartum 01/08/2021 Priority: High Papilledema 01/02/2021 Priority: High Admission on 01/01/2021 21w6d who was transferred from [facility] ED after confirmed in the setting of papilledema and hypertension. Patient reported a positive home test in August 2020. Presented to emblem maker 01/01 after 1-week history of headache and blurry vision. Blood pressures were initially severe in OSH and magnesium sulfate was started for seizure ppx. A head CT was negative for intracranial processes. Patient was transferred to [facility] for higher level of care and labs were obtained. Blood pressures were normotensive on arrival and have remained normotensive throughout entire hospital stay. PreE labs and 24 hour urine protein were normal, low likelihood for Pre-Eclampsia. 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 Neurology was then consulted. The patient underwent MRI/A/V which were all negative for acute process. Lumbar puncture was performed which confirmed diagnosis of IIH with an elevated opening pressure of 53, followed by 32cc drainage of CSF. Pt has had intermittent headaches since that have slowly improved after initiation of diamox per neurology recommendation. 01/05/21 discharge home with strict follow up instructions with neurology and need to establish care with Counts include 234 beds at the [facility]. Continue taking diamox BID for headaches. Stopped reglan as not needed 01/08: working to schedule neurology appointment 01/19 f/u with Dr Rocha Continue Diamox 500mg BID, f/u 2 months 03/26/21 asymptomatic F/u neurology 04/13/21 Reviewed on 03/26/2021 Anxiety Priority: Medium no meds EPDS 9 at 26 weeks. [facility] information and card for contact provided. Stable. Provided ABRADING MACHINE TENDER to address financial concerns and insurance post delivery for infant 03/26/21 No c/o Reviewed on 03/26/2021 headache in second trimester 01/08/2021 Priority: Medium See Papilledema 02/19/21 Automatic BP cuff ordered for home use due to surge in COVID Occasional MORRIS- resolve without tx. F/u with Neurology 04/13/21 Reviewed on 03/26/2021 Obesity during , antepartum 01/08/2021 (more content not included)... Normal [facility] Progress Noteon 03-19-2021 Outpatient Clerk Authentication Interface Message Text Visit Subjective: Shaheed Bobo is being seen today for an obstetrical visit. She is at 32w6d gestation. Her obstetrical history is significant for papillary edema secondary to intracranial hypertension, obesity, anxiety and + COVID 02/20/21. history fully reviewed. She is accompanied by her significant other. Reports resolution of URI/COVID symptoms. Review of Systems Neurological: Positive for headaches (occasional occurances. resolve without treatment or other sx). All other systems reviewed and are negative. Objective: BP 112/68 Wt (!) 111.5 kg (245 lb 14.4 oz) Physical Exam Vitals reviewed. Constitutional: Appearance: She is well-developed and well-nourished. HENT: Head: Atraumatic. Eyes: Extraocular Movements: EOM normal. Pulmonary: Effort: Pulmonary effort is normal. Abdominal: Comments: gravid Musculoskeletal: General: Normal range of motion. Neurological: Mental Status: She is alert and oriented to person, place, and time. Psychiatric: Mood and Affect: Mood and affect normal. Behavior: Behavior normal. Thought Content: Thought content normal. Judgment: Judgment normal. FHT: 165 Presentation: Cephalic Uterine Size: N/A Growth scan today: EFW 2243gm 58 percentile AC 90 percentile. See imaging for full details. Pt has not yet completed her 1hr GCT Assessment/Plan: Shaheed Bobo is a 20 y.o. at 32w6d with: Active Non-Hospital Problems Diagnosis Date Noted Personal history of COVID-19 02/19/2021 Priority: High Sx since 02/05 worsened 02/16/21 COVID, flu and strep neg 02/05, reports negative covid 02/12. Dry cough, nasal congestion Afebrile 02/19/21 repeat COVID, strep and influenza testing. 02/20 + COVID 03/19/21 sx resolved. Weekly surveillance Reviewed on 03/19/2021 Supervision of other high risk , antepartum 01/08/2021 Priority: High PLAN OF CARE MD/OB APPOINTMENTS Genetic screening:Care established at 21 weeks. Carrier/NIPT: declined How often should patient be evaluated? q 2 weeks to 32 weeks then weekly until delivery Work restrictions: NA EVALUATION surveillance:weekly due to COVID in 3rd trimester Ultrasound: monthly growth DELIVERY PLAN Hospital: [facility] 03/19/21 Pt desires primary c/s due to hx intracranial hypertension with papilledema GBS culture: Contraception: likely OCP :Planning Ped: Late care, antepartum 01/08/2021 Priority: High Papilledema 01/02/2021 Priority: High Admission on 01/01/2021 21w6d who was transferred from [facility] ED after confirmed in the setting of papilledema and hypertension. Patient reported a positive home test in August 2020. Presented to emblem maker 01/01 after 1-week history of headache and blurry vision. Blood pressures were initially severe in OSH and magnesium sulfate was started for seizure ppx. A head CT was negative for intracranial processes. Patient was transferred to [facility] for higher level of care and labs were obtained. Blood pressures were normotensive on arrival and have remained normotensive throughout entire hospital stay. PreE labs and 24 hour urine protein were normal, low likelihood for Pre-Eclampsia. 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 Neurology was then consulted. The patient underwent MRI/A/V which were all negative for acute process. Lumbar puncture was performed which confirmed diagnosis of IIH with an elevated opening pressure of 53, followed by 32cc drainage of CSF. Pt has had intermittent headaches since that have slowly improved after initiation of diamox per neurology recommendation. 01/05/21 discharge home with strict follow up instructions with neurology and need to establish care with Counts include 234 beds at the [facility]. Continue taking diamox BID for headaches. Stopped reglan as not needed 01/08: working to schedule neurology appointment 01/19 f/u with Dr Rocha Continue Diamox 500mg BID, f/u 2 months 02/05 no c/o today. F/u neurology 04/1002/19/21 no neurological c/o today. F/u neurology 04/13/21 Anxiety Priority: Medium no meds EPDS 9 at 26 weeks. [facility] information and card for contact provided. Chitra. Provided ABRADING MACHINE TENDER to address financial concerns and insurance post delivery for infant 03/19/21 Stable per pt. Declines [facility] support Reviewed on 03/19/2021 headache in second trimester 01/08/2021 Priority: Medium See Papilledema 02/19/21 Automatic BP cuff ordered for home use due to surge in COVID Occasional MORRIS- resolve without tx. F/u with Neurology 04/13/21 Reviewed on 03/19/2021 Obesity during , antepartum 01/08/2021 Priority: Medium PP BMI 34 care established at 21 weeks Recommended weight gain 11-20 pounds (25lb. 14oz to date) Daily exercise encouraged Nutrition consult:pending 1hr GCT 02/05 Chris (more content not included)... [facility] Progress Noteon 02-19-2021 Outpatient Clerk Authentication Interface Message Text Visit Subjective: Shaheed Bobo is being seen today for an obstetrical visit. She is at 28w6d gestation. Her obstetrical history is significant for papillary edema secondary to intracranial hypertension, obesity, anxiety. Today presents with ongoing URI symptoms. history fully reviewed. She is accompanied by her mother. Signs and Symptoms of Labor Shaheed presents with no labor symptoms. Movement Shaheed reports normal movement. Vaginal Bleeding During Shaheed denies any vaginal bleeding at this time. Vaginal DischargeSsureshthleonel denies any unusual or increase in vaginal discharge. Rupture of Membranes/Leaking Fluid The patient denies any leaking of fluid at this time. Signs and Symptoms of Preeclampsia Shaheed is presenting with no preeclampsia symptoms. Review of Systems Constitutional: Positive for malaise. Negative for fever (no fever). HENT: Positive for ear pain (treated for Otitis media 02/05. asymptomatic today). Respiratory: Positive for cough (dry x 2 weeks. COVID, influenza and strep neg 02/03. Reports neg COVID test 02/12. Symptoms started to improve then worsened 02/16/21. ). Neurological: Negative for headaches (no headaches). All other systems reviewed and are negative. Objective: BP 120/62 Wt (!) 107 kg (236 lb) Physical Exam Vitals reviewed. Constitutional: Appearance: She is well-developed and well-nourished. HENT: Head: Atraumatic. Eyes: Extraocular Movements: EOM normal. Pupils: Pupils are equal, round, and reactive to light. Pulmonary: Effort: Pulmonary effort is normal. Breath sounds: Normal breath sounds. Comments: Non productive Cough with deep inspiration Neurological: Mental Status: She is alert and oriented to person, place, and time. Skin: General: Skin is warm and dry. Psychiatric: Mood and Affect: Mood and affect normal. Behavior: Behavior normal. Thought Content: Thought content normal. Judgment: Judgment normal. FHT: 140 Presentation: Breech Uterine Size: N/A Growth ultrasound today- see report in imaging for details Assessment/Plan: Shaheed Bobo is a 20 y.o. at 28w6d with: Active Non-Hospital Problems Diagnosis Date Noted Symptoms of upper respiratory infection (URI) 02/19/2021 Priority: High Sx since 02/05 worsened 02/16/21 COVID, flu and strep neg 02/05, reports negative covid 02/12. Dry cough, nasal congestion Afebrile 02/19/21 repeat COVID, strep and influenza testing. Supervision of other high risk , antepartum 01/08/2021 Priority: High PLAN OF CARE MD/OB APPOINTMENTS Genetic screening:Care established at 21 weeks. Carrier/NIPT: declined How often should patient be evaluated? q 2 weeks to 36 weeks then weekly until delivery Work restrictions: NA EVALUATION surveillance:weekly at 37 weeks(BMI) Ultrasound: monthly growth DELIVERY PLAN Hospital: [facility] Let Labor if OK for pushing GBS culture: Contraception: :Planning Ped: Late care, antepartum 01/08/2021 Priority: High Papilledema 01/02/2021 Priority: High Admission on 01/01/2021 21w6d who was transferred from [facility] ED after confirmed in the setting of papilledema and hypertension. Patient reported a positive home test in August 2020. Presented to emblem maker 01/01 after 1-week history of headache and blurry vision. Blood pressures were initially severe in OSH and magnesium sulfate was started for seizure ppx. A head CT was negative for intracranial processes. Patient was transferred to [facility] for higher level of care and labs were obtained. Blood pressures were normotensive on arrival and have remained normotensive throughout entire hospital stay. PreE labs and 24 hour urine protein were normal, low likelihood for Pre-Eclampsia. 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 Neurology was then consulted. The patient underwent MRI/A/V which were all negative for acute process. Lumbar puncture was performed which confirmed diagnosis of IIH with an elevated opening pressure of 53, followed by 32cc drainage of CSF. Pt has had intermittent headaches since that have slowly improved after initiation of diamox per neurology recommendation. 01/05/21 discharge home with strict follow up instructions with neurology and need to establish care with Counts include 234 beds at the [facility]. Continue taking diamox BID for headaches. Stopped reglan as not needed 01/08: working to schedule neurology appointment 01/19 f/u with Dr Rocha Continue Diamox 500mg BID, f/u 2 months 02/05 no c/o today. F/u neurology 04/1002/19/21 no neurological c/o today. F/u neurology 04/10 Obesity during , antepartum 01/08/2021 Priority: Medium PP BMI 34 care established at 21 weeks Recommended weight gain 11-20 pounds (25lb (more content not included)... [facility] Progress Noteon 02-05-2021 Outpatient Clerk Authentication Interface Message Text Visit Subjective: Shaheed Bobo is being seen today for an obstetrical visit. She is at 26w6d gestation. Her obstetrical history is significant for Intracranial hypertension with resultant papillary edema, Late care, Obesity, Anxiety. history fully reviewed. She is accompanied by her significant other. Denies MORRIS, visual changes, contractions, LOF or bleeding. Review of Systems HENT: Positive for congestion and ear pain ([facility] pain. Flu, strep and covid negative. Using claritin.). All other systems reviewed and are negative. Objective: BP 118/70 Wt (!) 107.5 kg (236 lb 14.4 oz) Physical Exam Vitals reviewed. Constitutional: Appearance: She is well-developed and well-nourished. HENT: Head: Normocephalic and atraumatic. Eyes: Conjunctiva/sclera: Conjunctivae normal. Pupils: Pupils are equal, round, and reactive to light. Pulmonary: Effort: Pulmonary effort is normal. Abdominal: Comments: gravid Neurological: Mental Status: She is alert and oriented to person, place, and time. Psychiatric: Mood and Affect: Mood and affect normal. Behavior: Behavior normal. Thought Content: Thought content normal. Judgment: Judgment normal. FHT: 146 Presentation: N/A Uterine Size: N/A Assessment/Plan: Shaheed Bobo is a 20 y.o. at 26w6d with: Active Non-Hospital Problems Diagnosis Date Noted Supervision of other high risk , antepartum 01/08/2021 Priority: High PLAN OF CARE MD/OB APPOINTMENTS Genetic screening:Care established at 21 weeks. Carrier/NIPT: declined How often should patient be evaluated? q 2 weeks to 36 weeks then weekly until delivery Work restrictions: NA EVALUATION surveillance:weekly at 37 weeks(BMI) Ultrasound: monthly growth DELIVERY PLAN Hospital: [facility] Let Labor if OK for pushing GBS culture: Contraception: :Planning Ped: Late care, antepartum 01/08/2021 Priority: High Papilledema 01/02/2021 Priority: High Admission on 01/01/2021 21w6d who was transferred from [facility] ED after confirmed in the setting of papilledema and hypertension. Patient reported a positive home test in August 2020. Presented to [facility] 01/01 after 1-week history of headache and blurry vision. Blood pressures were initially severe in OSH and magnesium sulfate was started for seizure ppx. A head CT was negative for intracranial processes. Patient was transferred to [facility] for higher level of care and labs were obtained. Blood pressures were normotensive on arrival and have remained normotensive throughout entire hospital stay. PreE labs and 24 hour urine protein were normal, low likelihood for Pre-Eclampsia. 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 Neurology was then consulted. The patient underwent MRI/A/V which were all negative for acute process. Lumbar puncture was performed which confirmed diagnosis of IIH with an elevated opening pressure of 53, followed by 32cc drainage of CSF. Pt has had intermittent headaches since that have slowly improved after initiation of diamox per neurology recommendation. 01/05/21 discharge home with strict follow up instructions with neurology and need to establish care with Counts include 234 beds at the [facility]. Continue taking diamox BID for headaches. Stopped reglan as not needed 01/08: working to schedule neurology appointment 01/19 f/u with Dr Rocha Continue Diamox 500mg BID, f/u 2 months 02/05 no c/o today. F/u neurology 04/10 Obesity during , antepartum 01/08/2021 Priority: Medium PP BMI 34 care established at 21 weeks Recommended weight gain 11-20 pounds (25lb. 14oz to date) Daily exercise encouraged Nutrition consult:pending 1hr GCT 02/05 Reinforced completion of 1hr GCT ADHD Priority: Low Attention deficit hyperactivity disorder (ADHD), combined type 12/14/2014 Priority: Low Stable no meds Papilledema of both eyes Anxiety no meds EPDS 9 at 26 weeks. [facility] information and card for contact provided. No c/o headache in second trimester 01/08/2021 See Papilledema Follow up: 2 weeks growth and OB Reinforced completion of 1hr GCT Reviewed s/s PTL The total patient time of the visit was 20 minutes: 15 direct patient care, 5 minutes chart review and documentation. [facility] Progress Noteon 01-22-2021 Outpatient Clerk Authentication Interface Message Text Visit Subjective: Shaheed Bobo is being seen today for an obstetrical visit. She is at 24w6d gestation. Her obstetrical history is significant for Intracranial hypertension with resultant papillary edema, Late care, Obesity, Anxiety. history fully reviewed. She is accompanied by her significant other. Signs and Symptoms of Labor Shaheed presents with no labor symptoms. Movement Shaheed reports normal movement. Vaginal Bleeding During Shaheed denies any vaginal bleeding at this time. Vaginal DischargeSsureshtha denies any unusual or increase in vaginal discharge. Rupture of Membranes/Leaking Fluid The patient denies any leaking of fluid at this time. Signs and Symptoms of Preeclampsia Shaheed is presenting with no preeclampsia symptoms. Pain Scale Shaheed denies any signs or symptoms of pain. Review of Systems Eyes: Negative for visual disturbance (Vision has returned bilaterally. Likely needs current prescription modified). Neurological: Negative for headaches (no recent headaches). All other systems reviewed and are negative. Objective: BP 116/76 Wt (!) 107 kg (236 lb) Physical Exam Vitals reviewed. Constitutional: Appearance: She is well-developed and well-nourished. HENT: Head: Atraumatic. Eyes: Extraocular Movements: EOM normal. Pulmonary: Effort: Pulmonary effort is normal. Musculoskeletal: General: Normal range of motion. Neurological: Mental Status: She is alert and oriented to person, place, and time. Psychiatric: Mood and Affect: Mood and affect normal. Behavior: Behavior normal. Thought Content: Thought content normal. Judgment: Judgment normal. FHT: 131 Presentation: Cephalic Uterine Size: N/A Growth ultrasound - See imaging for full details Assessment/Plan: Shaheed Bobo is a 20 y.o. at 24w6d with: Active Non-Hospital Problems Diagnosis Date Noted Supervision of other high risk , antepartum 01/08/2021 Priority: High PLAN OF CARE MD/OB APPOINTMENTS Genetic screening:Care established at 21 weeks. Carrier/NIPT: 01/22 still considering options How often should patient be evaluated? q 2 weeks to 36 weeks then weekly until delivery Work restrictions: NA EVALUATION surveillance:weekly at 37 weeks(BMI) Ultrasound: monthly growth DELIVERY PLAN Hospital: [facility] Let Labor if OK for pushing GBS culture: Contraception: :Planning Ped: Late care, antepartum 01/08/2021 Priority: High Papilledema 01/02/2021 Priority: High Admission on 01/01/2021 21w6d who was transferred from [facility] ED after confirmed in the setting of papilledema and hypertension. Patient reported a positive home test in August 2020. Presented to [facility] 01/01 after 1-week history of headache and blurry vision. Blood pressures were initially severe in OSH and magnesium sulfate was started for seizure ppx. A head CT was negative for intracranial processes. Patient was transferred to [facility] for higher level of care and labs were obtained. Blood pressures were normotensive on arrival and have remained normotensive throughout entire hospital stay. PreE labs and 24 hour urine protein were normal, low likelihood for Pre-Eclampsia. 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 Neurology was then consulted. The patient underwent MRI/A/V which were all negative for acute process. Lumbar puncture was performed which confirmed diagnosis of IIH with an elevated opening pressure of 53, followed by 32cc drainage of CSF. Pt has had intermittent headaches since that have slowly improved after initiation of diamox per neurology recommendation. 01/05/21 discharge home with strict follow up instructions with neurology and need to establish care with Counts include 234 beds at the [facility]. Continue taking diamox BID for headaches. Stopped reglan as not needed 01/08: working to schedule neurology appointment 01/19 f/u with Dr Rocha Continue Diamox 500mg BID, f/u 2 months Obesity during , antepartum 01/08/2021 Priority: Medium PP BMI 34 care established at 21 weeks Recommended weight gain 11-20 pounds (25lb to date) Daily exercise encouraged Nutrition consult:pending 1hr GCT ADHD Priority: Low Attention deficit hyperactivity disorder (ADHD), combined type 12/14/2014 Priority: Low Stable no meds Papilledema of both eyes Anxiety no meds EPDS 9 at 26 weeks. [facility] information and card for contact provided. headache in second trimester 01/08/2021 See Papilledema Follow up: 2 weeks OB visit 4 weeks growth Instructed to complete 1hr GCT in next week Considering genetic testing options Reviewed s/s PTL, neuro symptoms to report The total patient time of the visit was 25 minutes: 15 direct p (more content not included)... [facility] Oligoclonal Bands, CSFon Oligo Bands Number, CSF 0 Bands Normal 0-1 [facility] Comment on above: Performed By: #### C SFP3, CCCSF, CSFG3 ####[address] [address]#### OLIGO ####The performing lab is in the report. Oligoclonal Bands Interp See Note Normal [facility] Comment on above: Result Comment: Isoe lectric focusing/immunofixation revealed no oligoclonal bands in either the CSF or the serum. This is considered to be a negative result for oligoclonal bands. Approximately 5 percent of patients with clinically definitive multiple sclerosis will have a negative result. Performed By: [facility] [address] [place] [id number] Blow Off Worker: Missy Cook MD Performed By: #### C SFP3, CCCSF, CSFG3 ####[facility] [address] [address]#### OLIGO ####The performing lab is in the report. Oligoclonal Bands, CSF Negative Normal [facility] Comment on above: Performed By: #### C SFP3, CCCSF, CSFG3 ####[address] [address]#### OLIGO ####The performing lab is in the report. Progress Noteon 01-08-2021 Outpatient Clerk Authentication Interface Message Text New Patient for obstetrical care Date of Service: 01/08/2021 Referring Provider: Asia Atkinson Primary Care Provider: [facility], MD Lamonte Reason for Consult: Dr. Asia Atkinson requests that Shaheed establish obstetrical care due to recent hospitalization for papillary edema secondary to intracranial hypertension Shaheed is a 20 y.o. at 22w6d gestation with history significant for late care, intracranial hypertension, obesity. She is accompanied by her significant other. OB History Para Term AB Living 1 0 0 0 0 0 SAB IAB Ectopic Multiple Live Births 0 0 0 0 0 # Outcome Date GA Lbr Leopoldo/2nd Weight Sex Delivery Anes PTL Lv 1 Current Past Medical History: Diagnosis Date Anxiety no meds Obesity History reviewed. No pertinent surgical history. No Known Allergies Social History Socioeconomic History Marital status: Single Spouse name: None Number of children: None Years of education: None Highest education level: None Tobacco Use Smoking status: Never Smoker Smokeless tobacco: Never Used Substance and Sexual Activity Alcohol use: Never Drug use: Never Infections Live with someone with or exposed to TB No History of STI's None Rash or viral illness since last menstruation No 2nd STI GBS No 3rd STI Hx of Chicken Pox No immunized Other infections Partner has hx of genital herpes No Genetics Age is > than 35y as of estimated date No Thalassemia No Neural Tube Defect No Congenital Heart Defect No Down Syndrome No Sg-Sachs No Cornelius Disease No Sickle Cell Disease or Trait No Hemophilia, Thrombophilia No Muscular Dystrophy No Cystic Fibrosis No [place]'s Chorea No Intellectual Disability/Autism No Metabolic Disorder No Recurrent Loss, or a Stillbirth No Inherited Genetic or Chromosomal Disorder No Illicit; Rec.drugs; Alcohol since last menses No Family History Problem Relation Age of Onset Restless Legs Syndrome Mother High Cholesterol Father Diabetes Mellitus II Maternal Grandmother Cancer Paternal Grandmother colon High Cholesterol Paternal Grandfather High Blood Pressure Paternal Grandfather Outpatient Encounter Medications as of 01/08/2021 Medication Sig Dispense Refill AcetaZOLAMIDE 500 MG CP12 Take 500 mg by mouth 2 times daily MV & Min w/FA-DHA ( GUMMIES PO) Take by mouth daily MAGNESIUM OXIDE 400 PO Take 1 Tablet by mouth daily Pyridoxine HCl (VITAMIN B6 PO) Take 1 Tablet by mouth daily Acetaminophen (TYLENOL EXTRA STRENGTH PO) Take by mouth as needed Docusate Sodium (STOOL SOFTENER LAXATIVE PO) Take by mouth as needed cetirizine (ZYRTEC) 10 MG tablet Take 10 mg by mouth daily (Patient not taking: Reported on 01/08/2021) [DISCONTINUED] metoclopramide (REGLAN) 10 MG tablet Take 10 mg by mouth 3 times daily (with meals) No facility-administered encounter medications on file as of 01/08/2021. Review of Systems Eyes: Positive for visual disturbance (vision in left eye improved. Occasional fuzzy vision). Gastrointestinal: Positive for constipation (improving since start of magnesium). Neurological: Positive for headaches (improved since hospital admission and starting po magnesium. Pain today more in neck and feels related to lumbar puncture.). All other systems reviewed and are negative. Physical Exam Vitals reviewed. Constitutional: Appearance: She is well-developed and well-nourished. Eyes: Extraocular Movements: EOM normal. Pupils: Pupils are equal, round, and reactive to light. Cardiovascular: Rate and Rhythm: Normal rate and regular rhythm. Pulmonary: Effort: Pulmonary effort is normal. Abdominal: Palpations: Abdomen is soft. Musculoskeletal: General: Normal range of motion. Cervical back: Normal range of motion. Neurological: Mental Status: She is alert and oriented to person, place, and time. Skin: General: Skin is warm and dry. Psychiatric: Mood and Affect: Mood and affect normal. Behavior: Behavior normal. Thought Content: Thought content normal. Judgment: Judgment normal. FHT: Positive Presentation: Breech Uterine Size: N/A Laboratory Test Results: labs completed during hospitalization at [facility] 01/02/21. All WNL with exception of H/H 12/16- normal periph smear. No pap indicated Ultrasound Results: - Please see Ultrasound test for full details. Assessment/Plan: Shaheed Bobo is a 20 y.o. at 22w6d with: Active Non-Hospital Problems Diagnosis Date Noted headache in second trimester 01/08/2021 See Papilledema Supervision of other high risk , antepartum 01/08/2021 PLAN OF CARE MD/OB APPOINTMENTS Genetic screening:Care established at 21 weeks. Carrier/NIPT: How often should patient be evaluated? q 2 weeks to 36 weeks then weekly until delivery Work restrictions: NA EVALUATION surveillance:weekly at 37 weeks(BMI) (more content not included)... [facility] Protein, 24 Hr Urineon 01-04 Protein, 24HR Calculated 63 mg/(24.h) 42 - 225 mg/(24.h) [facility] Total Volume 1263 mL [facility] Test Performed by [facility], [address] [place] [id number] 01/03-01/04 0909 [facility] Total Protein,Ur 24Hron 12-18 Total Protein, Ur 24Hr 63 mg/(24.h) Normal 42-225 [facility] Comment on above: Order Comment: tv=12 63 01/03-01/04 909 Performed By: #### C /FUN #### [address] [address] [place] [address] Total Volume 1263 mL Normal [facility] Comment on above: Order Comment: tv=12 63 01/03-01/04 909 Performed By: #### C /FUN #### [address] [address] [place], [place] CSF Cell Count with Differen tialon 01-03-2021 Appearance (U) clear [facility] Color, CSF see below [facility] Comment on above: Clear and colorless Nucleated Cells, CSF 1 {cells}/uL 0 - 5 {cells}/uL [facility] Red blood cells count, CSF 0 {RBC}/uL [facility] Test Performed by [facility], [place] [address] [facility] CULTURE URINEon 01-03-2021 CULTURE URINE CULTURE URINE --> St atus: F Normal urogenital violeta present. Normal [facility] Comment on above: Performed By: #### B FRP2 #### [address] [address] [place], [place] Cell Count,CSFon 01-03-2021 Nucleated Cells,CSF 1 {cells}/uL Normal 0-5 [facility] Comment on above: Performed By: #### C SFP3, CCCSF, CSFG3 ####[id number] [place], [place] #### OLIGO ####The performing lab is in the report. RBC Count,CSF 0 {RBC}/uL Normal [facility] Comment on above: Performed By: #### C SFP3, CCCSF, CSFG3 ####[address] [place], [place] #### OLIGO ####The performing lab is in the report. Supernatant see below [facility] Comment on above: Result Comment: Noy r and colorless Performed By: #### C SFP3, CCCSF, CSFG3 ####[address] [place], [place] #### OLIGO ####The performing lab is in the report. Appearance (U) clear Normal [facility] Comment on above: Performed By: #### C SFP3, CCCSF, CSFG3 ####[address] [place], [place] #### OLIGO ####The performing lab is in the report. Creat Clearance,24Hron 01-03 Creatinine [Mass/Vol] 0.44 mg/dL Low 0.52-1.25 [facility] Comment on above: Performed By: #### C SW/V #### [address] [address] [address] [place], [place] Culture, Urineon 01-03-2021 Bacteria identified Cx Nom (U) Normal urogenital violeta present. [facility] Test Performed by [facility], [address] [place] [place] [id number] [place] [address] [facility] Glucose, CSFon 01-03-2021 Glucose, CSF 65 mg/dL Normal 40-70 [facility] Comment on above: Performed By: #### C SFP3, CCCSF, CSFG3 ####[address] [place], [place] #### OLIGO ####The performing lab is in the report. Glucose, CSF 65 mg/dL 40 - 70 mg/dL [facility] HIV Ag - Abon 01-03-2021 HIV 1,2 Combo Antigen/Antibody Non-Reactive Normal Non-Reactiv e [facility] Comment on above: Result Comment: The specimen was non-reactive for HIV-1 and HIV-2 antibodies and p24 antigen using an FDA-cleared 4th generation HIV test. Based on this non-reactive screen result, further reflexive testing was not indicated and was, therefore, not performed. Performed By: #### C TNGP #### [facility] [address] [place], [place] HIV Screenon 01-03-2021 HIV Ag/Ab Non-Reactive Non-Reactiv e NA [facility] Comment on above: The specimen was non -reactive for HIV-1 and HIV-2 antibodies and p24 antigen using an FDA-cleared 4th generation HIV test. Based on this non-reactive screen result, further reflexive testing was not indicated and was, therefore, not performed. Hep B Surface Agon Hep B Surface Ag Not detected Normal Not Detected [facility] Comment on above: Performed By: #### C TNGP #### [facility] [address] [place], [place] Hep C Antibodyon 01-03-2021 Hep C Antibody Not detected Normal Not Detected [facility] Comment on above: Result Comment: Patients with DETECTED Hepatitis C Ab results should have a new specimen submitted for supplemental testing with a Hepatitis C Quantitative RNA assay (viral load), if clinically indicated. Performed By: #### C TNGP #### [facility] [address] [place], [place] Hepatitis B Surface Antigeno n 01-03-2021 Hepatitis B Surface Ag Not detected Not Detected NA [facility] Hepatitis C Antibodyon 01-03 Hepatitis C Ab Not detected Not Detected NA [facility] Comment on above: Patients with DETECTED Hepatitis C Ab results should have a new specimen submitted for supplemental testing with a Hepatitis C Quantitative RNA assay (viral load), if clinically indicated. MRA HEAD WO CONTRASTon 01-03 Patient Name: SHAHEED BOBO [facility] ACCESSION EXAM DATE/TIME PROCEDURE ORDERING PROVIDER [id number] 01/02/2021 18:17 EST MRA Head w/o Contrast [id number] NANCY BARTH CPT code 06245 Reason For Exam (MRA Head w/o Contrast) papilledema, headache, vertigo Report EXAMINATION: MRI BRAIN WITHOUT CONTRAST CLINICAL INDICATION: Severe papilledema on physical exam with visual disturbance. TECHNIQUE: Multi-planar multi-sequential MR imaging of the brain was performed without intravenous contrast. MRA an MRV of the brain was performed utilizing 3-D [id number], without intravenous contrast. COMPARISON: None. FINDINGS: BRAIN: Prominence of the optic nerve sheaths bilaterally with flattening of the posterior sclera. Ventricles are normal in configuration. No cerebellar tonsillar ectopia. Solid is normal in appearance. Meckel's caves are not expanded. No acute infarction, intracranial hemorrhage or mass. Nonspecific focus of FLAIR hyperintensity in the right frontal centrum semiovale, possibly related to migraines or microangiopathic disease. No hydrocephalus. No extra-axial fluid collections. The skull base flow voids are present. The visualized intraorbital contents are normal. Scattered mucosal thickening in the paranasal sinuses. Trace left mastoid effusion. The visualized osseous structures, soft tissues and partially visualized parotid glands appear normal. MRA: Normal distal internal carotid arteries. The proximal anterior, middle and posterior cerebral arteries are patent bilaterally. Normal vertebrobasilar system. No evidence of vascular stenosis, occlusion, aneurysm or vascular malformation. [facility] Report MRV: Dural Venous Sinuses: There is stenosis of bilateral lateral aspects of the transverse sinuses (series 7 image 24). Remaining dural venous sinuses are patent. Internal Cerebral Veins and Vein of Emre: Patent IMPRESSION: Imaging findings of papilledema with stenosis of the lateral aspects of bilateral transverse sinuses, suggestive of intracranial hypertension. No acute intracranial abnormality. MRA of the head is within normal limits. No dural venous sinus thrombosis. Report Dictated on --- Final --- Dictated: 01/03/2021 7:53 am Dictating Physician: MD HUGHES WASSIM OSAMA Signed Date and Time: 01/03/2021 8:09 am Signed by: MD HUGHES WASSIM OSAMA Transcribed Date and Time: 01/03/2021 7:53 [facility] Lucía Hughes MD - 01/03/2021 [id number] ACCESSION EXAM DATE/TIME PROCEDURE ORDERING PROVIDER [id number] 01/02/2021 18:17 EST MRA Head w/o Contrast [id number] NANCY BARTH CPT code 89413 Reason For Exam (MRA Head w/o Contrast) papilledema, headache, vertigo Report EXAMINATION: MRI BRAIN WITHOUT CONTRAST CLINICAL INDICATION: Severe papilledema on physical exam with visual disturbance. TECHNIQUE: Multi-planar multi-sequential MR imaging of the brain was performed without intravenous contrast. MRA an MRV of the brain was performed utilizing 3-D axyp-gi-pwpkec, without intravenous contrast. COMPARISON: None. FINDINGS: BRAIN: Prominence of the optic nerve sheaths bilaterally with flattening of the posterior sclera. Ventricles are normal in configuration. No cerebellar tonsillar ectopia. Solid is normal in appearance. Meckel's caves are not expanded. No acute infarction, intracranial hemorrhage or mass. Nonspecific focus of FLAIR hyperintensity in the right frontal centrum semiovale, possibly related to migraines or microangiopathic disease. No hydrocephalus. No extra-axial fluid collections. The skull base flow voids are present. The visualized intraorbital contents are normal. Scattered mucosal thickening in the paranasal sinuses. Trace left mastoid effusion. The visualized osseous structures, soft tissues and partially visualized parotid glands appear normal. MRA: Normal distal internal carotid arteries. The proximal anterior, middle and posterior cerebral arteries are patent bilaterally. Normal vertebrobasilar system. No evidence of vascular stenosis, occlusion, aneurysm or vascular malformation. Magnetic Resonance Imaging Report MRV: Dural Venous Sinuses: There is stenosis of bilateral lateral aspects of the transverse sinuses (series 7 image 24). Remaining dural venous sinuses are patent. Internal Cerebral Veins and Vein of Emre: Patent IMPRESSION: Imaging findings of papilledema with stenosis of the lateral aspects of bilateral transverse sinuses, suggestive of intracranial hypertension. No acute intracranial abnormality. MRA of the head is within normal limits. No dural venous sinus thrombosis. Report Dictated on --- Final --- Dictated: 01/03/2021 7:53 am Dictating Physician: MD JOEY, LUCÍA DELAROSA Signed Date and Time: 01/03/2021 8:09 am Signed by: MD HUGHES WASSIM OSAMA Transcribed Date and Time: 01/03/2021 7:53 [facility] Work Phone: [facility] Work Phone: MRI BRAIN WO CONTRASTon 12-18 Patient Name: SHAHEED BOBO Magnetic Resonance Imaging ACCESSION EXAM DATE/TIME PROCEDURE ORDERING PROVIDER [id number] 01/02/2021 18:17 EST MRI Brain w/o Contrast [id number] -NANCY GIBBS CPT code 33230 Reason For Exam (MRI Brain w/o Contrast) papilledema, vertigo, headache Report EXAMINATION: MRI BRAIN WITHOUT CONTRAST CLINICAL INDICATION: Severe papilledema on physical exam with visual disturbance. TECHNIQUE: Multi-planar multi-sequential MR imaging of the brain was performed without intravenous contrast. MRA an MRV of the brain was performed utilizing 3-D ypyz-xw-mteufx, without intravenous contrast. COMPARISON: None. FINDINGS: BRAIN: Prominence of the optic nerve sheaths bilaterally with flattening of the posterior sclera. Ventricles are normal in configuration. No cerebellar tonsillar ectopia. Solid is normal in appearance. Meckel's caves are not expanded. No acute infarction, intracranial hemorrhage or mass. Nonspecific focus of FLAIR hyperintensity in the right frontal centrum semiovale, possibly related to migraines or microangiopathic disease. No hydrocephalus. No extra-axial fluid collections. The skull base flow voids are present. The visualized intraorbital contents are normal. Scattered mucosal thickening in the paranasal sinuses. Trace left mastoid effusion. The visualized osseous structures, soft tissues and partially visualized parotid glands appear normal. MRA: Normal distal internal carotid arteries. The proximal anterior, middle and posterior cerebral arteries are patent bilaterally. Normal vertebrobasilar system. No evidence of vascular stenosis, occlusion, aneurysm or vascular malformation. Magnetic Resonance Imaging Report MRV: Dural Venous Sinuses: There is stenosis of bilateral lateral aspects of the transverse sinuses (series 7 image 24). Remaining dural venous sinuses are patent. Internal Cerebral Veins and Vein of Emre: Patent IMPRESSION: Imaging findings of papilledema with stenosis of the lateral aspects of bilateral transverse sinuses, suggestive of intracranial hypertension. No acute intracranial abnormality. MRA of the head is within normal limits. No dural venous sinus thrombosis. Report Dictated on --- Final --- Dictated: 01/03/2021 7:53 am Dictating Physician: MD JOEY, LUCÍA DELAROSA Signed Date and Time: 01/03/2021 8:09 am Signed by: MD HUGHES WASSIM OSAMA Transcribed Date and Time: 01/03/2021 7:53 [facility] Lucía Hughes MD - 01/03/2021 Patient Name: SHAHEED BOBO [facility]#: [id number] Magnetic Resonance Imaging ACCESSION EXAM DATE/TIME PROCEDURE ORDERING PROVIDER [id number] 01/02/2021 18:17 EST MRI Brain w/o Contrast [id number] NANCY BARTH CPT code 03337 Reason For Exam (MRI Brain w/o Contrast) papilledema, vertigo, headache Report EXAMINATION: MRI BRAIN WITHOUT CONTRAST CLINICAL INDICATION: Severe papilledema on physical exam with visual disturbance. TECHNIQUE: Multi-planar multi-sequential MR imaging of the brain was performed without intravenous contrast. MRA an MRV of the brain was performed utilizing 3-D imld-wm-pufydy, without intravenous contrast. COMPARISON: None. FINDINGS: BRAIN: Prominence of the optic nerve sheaths bilaterally with flattening of the posterior sclera. Ventricles are normal in configuration. No cerebellar tonsillar ectopia. Solid is normal in appearance. Meckel's caves are not expanded. No acute infarction, intracranial hemorrhage or mass. Nonspecific focus of FLAIR hyperintensity in the right frontal centrum semiovale, possibly related to migraines or microangiopathic disease. No hydrocephalus. No extra-axial fluid collections. The skull base flow voids are present. The visualized intraorbital contents are normal. Scattered mucosal thickening in the paranasal sinuses. Trace left mastoid effusion. The visualized osseous structures, soft tissues and partially visualized parotid glands appear normal. MRA: Normal distal internal carotid arteries. The proximal anterior, middle and posterior cerebral arteries are patent bilaterally. Normal vertebrobasilar system. No evidence of vascular stenosis, occlusion, aneurysm or vascular malformation. Magnetic Resonance Imaging Report MRV: Dural Venous Sinuses: There is stenosis of bilateral lateral aspects of the transverse sinuses (series 7 image 24). Remaining dural venous sinuses are patent. Internal Cerebral Veins and Vein of Emre: Patent IMPRESSION: Imaging findings of papilledema with stenosis of the lateral aspects of bilateral transverse sinuses, suggestive of intracranial hypertension. No acute intracranial abnormality. MRA of the head is within normal limits. No dural venous sinus thrombosis. Report Dictated on --- Final --- Dictated: 01/03/2021 7:53 am Dictating Physician: MD JOEY, LUCÍA DELAROSA Signed Date and Time: 01/03/2021 8:09 am Signed by: MD JOEY, LUCÍA DELAROSA Transcribed Date and Time: 01/03/2021 7:53 [facility] Work Phone: MRI BRAIN WO CONTRASTOrdered By: Lucía Hughes on 01-03-2021 [facility] Work Phone: MRV HEAD W WO CONTRASTon [facility]: [id number] Resonance Imaging ACCESSION EXAM DATE/TIME PROCEDURE ORDERING PROVIDER [id number] 01/02/2021 18:17 EST MRV Head [id number] -NANCY GIBBS CPT code 36220 Reason For Exam (MRV Head) papilledema, headache, vertigo Report EXAMINATION: MRI BRAIN WITHOUT CONTRAST CLINICAL INDICATION: Severe papilledema on physical exam with visual disturbance. TECHNIQUE: Multi-planar multi-sequential MR imaging of the brain was performed without intravenous contrast. MRA an MRV of the brain was performed utilizing 3-D txgm-lj-qxqltb, without intravenous contrast. COMPARISON: None. FINDINGS: BRAIN: Prominence of the optic nerve sheaths bilaterally with flattening of the posterior sclera. Ventricles are normal in configuration. No cerebellar tonsillar ectopia. Solid is normal in appearance. Meckel's caves are not expanded. No acute infarction, intracranial hemorrhage or mass. Nonspecific focus of FLAIR hyperintensity in the right frontal centrum semiovale, possibly related to migraines or microangiopathic disease. No hydrocephalus. No extra-axial fluid collections. The skull base flow voids are present. The visualized intraorbital contents are normal. Scattered mucosal thickening in the paranasal sinuses. Trace left mastoid effusion. The visualized osseous structures, soft tissues and partially visualized parotid glands appear normal. MRA: Normal distal internal carotid arteries. The proximal anterior, middle and posterior cerebral arteries are patent bilaterally. Normal vertebrobasilar system. No evidence of vascular stenosis, occlusion, aneurysm or vascular malformation. Magnetic Resonance Imaging Report MRV: Dural Venous Sinuses: There is stenosis of bilateral lateral aspects of the transverse sinuses (series 7 image 24). Remaining dural venous sinuses are patent. Internal Cerebral Veins and Vein of Emre: Patent IMPRESSION: Imaging findings of papilledema with stenosis of the lateral aspects of bilateral transverse sinuses, suggestive of intracranial hypertension. No acute intracranial abnormality. MRA of the head is within normal limits. No dural venous sinus thrombosis. Report Dictated on --- Final --- Dictated: 01/03/2021 7:53 am Dictating Physician: MD JOEY, LUCÍA DELAROSA Signed Date and Time: 01/03/2021 8:09 am Signed by: MD HUGHES WASSIM OSAMA Transcribed Date and Time: 01/03/2021 7:53 [facility] Lucía Hughes MD - 01/03/2021 Patient Name: SHAHEED BOBO Magnetic Resonance Imaging ACCESSION EXAM DATE/TIME PROCEDURE ORDERING PROVIDER [id number] 01/02/2021 18:17 EST MRV Head [id number] -NANCY GIBBS CPT code 95469 Reason For Exam (MRV Head) papilledema, headache, vertigo Report EXAMINATION: MRI BRAIN WITHOUT CONTRAST CLINICAL INDICATION: Severe papilledema on physical exam with visual disturbance. TECHNIQUE: Multi-planar multi-sequential MR imaging of the brain was performed without intravenous contrast. MRA an MRV of the brain was performed utilizing 3-D jrwl-dj-mtjorr, without intravenous contrast. COMPARISON: None. FINDINGS: BRAIN: Prominence of the optic nerve sheaths bilaterally with flattening of the posterior sclera. Ventricles are normal in configuration. No cerebellar tonsillar ectopia. Solid is normal in appearance. Meckel's caves are not expanded. No acute infarction, intracranial hemorrhage or mass. Nonspecific focus of FLAIR hyperintensity in the right frontal centrum semiovale, possibly related to migraines or microangiopathic disease. No hydrocephalus. No extra-axial fluid collections. The skull base flow voids are present. The visualized intraorbital contents are normal. Scattered mucosal thickening in the paranasal sinuses. Trace left mastoid effusion. The visualized osseous structures, soft tissues and partially visualized parotid glands appear normal. MRA: Normal distal internal carotid arteries. The proximal anterior, middle and posterior cerebral arteries are patent bilaterally. Normal vertebrobasilar system. No evidence of vascular stenosis, occlusion, aneurysm or vascular malformation. Magnetic Resonance Imaging Report MRV: Dural Venous Sinuses: There is stenosis of bilateral lateral aspects of the transverse sinuses (series 7 image 24). Remaining dural venous sinuses are patent. Internal Cerebral Veins and Vein of Emre: Patent IMPRESSION: Imaging findings of papilledema with stenosis of the lateral aspects of bilateral transverse sinuses, suggestive of intracranial hypertension. No acute intracranial abnormality. MRA of the head is within normal limits. No dural venous sinus thrombosis. Report Dictated on --- Final --- Dictated: 01/03/2021 7:53 am Dictating Physician: MD JOEY, LUCÍA DELAROSA Signed Date and Time: 01/03/2021 8:09 am Signed by: MD JOEY, LUCÍA DELAROSA Transcribed Date and Time: 01/03/2021 7:53 [facility] Work Phone: [facility] Work Phone: No Panel Informationon 01-03 Test Performed by [address] - [facility] Test Performed by [address] - [facility] Test Performed by [address] - [facility] PR[facility]R & PTTon 01-04-20 INR Coag (Bld) [Relative time] 1.0 {INR} [facility] Comment on above: Recommended Anticoag ulant Therapy: SEE BELOW ----- INR of 2.0 - 3.0 : - Prophylaxis of Venous Thrombosis (high-risk surgery) - Treatment of Venous Thrombosis - Treatment of Pulmonary Embolism (Includes tissue heart valves, Acute Myocardial Infarction to prevent systemic embolism, Valvular Heart Disease, and Atrial Fibrillation) ----- INR of 2.5 - 3.5 : - Mechanical Prosthetic Valves (high risk) - If oral anticoagulant therapy is used to prevent Myocardial Infarction Protein, CSFon 01-03-2021 Protein, CSF 23.4 mg/dL Normal 12.0-60.0 [facility] Comment on above: Performed By: #### C SFP3, CCCSF, CSFG3 ####[address] [place] [address]#### OLIGO ####The performing lab is in the report. Appearance (U) see below Normal [facility] Comment on above: Result Comment: Noy r and colorless Performed By: #### C SFP3, CCCSF, CSFG3 ####[id number] [place], [place] #### OLIGO ####The performing lab is in the report. Supernatant see below Normal [facility] Comment on above: Result Comment: Noy r and colorless Performed By: #### C SFP3, CCCSF, CSFG3 ####[id number] [place], [place] #### OLIGO ####The performing lab is in the report. Appearance, CSF see below [facility] Comment on above: Clear and colorless Color, CSF see below [facility] Comment on above: Clear and colorless Protein, CSF 23.4 mg/dL 12.0 - 60.0 mg/dL [facility] Protime AND APTTon INR 1.0 Normal 0.9-1.1 [facility] Comment on above: Result Comment: Jai mmended Anticoagulant Therapy: SEE BELOW ----- INR of 2.0 - 3.0 : - Prophylaxis of Venous Thrombosis (high-risk surgery) - Treatment of Venous Thrombosis - Treatment of Pulmonary Embolism (Includes tissue heart valves, Acute Myocardial Infarction to prevent systemic embolism, Valvular Heart Disease, and Atrial Fibrillation) ----- INR of 2.5 - 3.5 : - Mechanical Prosthetic Valves (high risk) - If oral anticoagulant therapy is used to prevent Myocardial Infarction Performed By: #### C TNGP #### [address] [place], [place] aPTT Coag (Bld) [Time] 26.6 s Normal 20.0-30.5 [facility] Comment on above: NOTE: The therapeuti c time for Heparin anticoagulation, based on Xa activity inhibition, is an APTT of 46-80 seconds. Result Comment: NOTE : The therapeutic time for Heparin anticoagulation, based on Xa activity inhibition, is an APTT of 46-80 seconds. Performed By: #### C TNGP #### [facility] [address] [place], [place] PT Coag (PPP) [Time] 10.7 s Normal 9.0-12.0 [facility] Comment on above: . Result Comment: . Performed By: #### C [facility] #### [facility] [address] [place] [address] Surgical Pathologyon 021 Surgical Pathology Report SEE BELOW [facility] 1 [id number] DEPARTMENT OF BABB PATHOLOGY [facility] PATHOLOGY AND LABORATORY MEDICINE [address], [place] [id number] FINAL PERIPHERAL BLOOD REPORT NAME: SHAHEED BOBO : 2000 20 Y F BILLING NO.: [id number] LOCATION: [place] [address] PROCEDURE 01/02/2021 DATE: SURGEON: PAOLA THORNTON MD RECEIVED DATE: 01/02/2021 ATTENDING JULIO C AMSTERSON MD REPORT DATE: 01/03/2021 : COPIES TO: DIAGNOSIS: PERIPHERAL BLOOD SMEAR: - LEUKOCYTOSIS WITH MATURE ABSOLUTE NEUTROPHILIA. - NORMOCYTIC ANEMIA. - RULE OUT INFECTION, BLOOD LOSS, NUTRITIONAL DEFICIENCIES, DRUG EFFECT/TOXICITIES, AND/OR ANEMIA OF CHRONIC DISEASE. - BLASTS AND DYSGRANULOPOIESIS ARE NOT IDENTIFIED. MRL/MRL Signature> Lonnie KAUFFMAN CLINICAL INFORMATION: Peripheral Smear SPECIMEN: PERIPHERAL BLOOD SMEAR GROSS DESCRIPTION: Peripheral smear slide prepared for evaluation. MRL/YRS Disclaimer: The following statement applies to all immunohistochemistry, in situ hybridization, molecular studies, and immunofluorescence testing. The use of one or more reagents in the above tests is regulated as an analyte specific reagent (ASR). These tests were developed and their performance characteristics determined by the clinical laboratories of [facility]. They have not been cleared by the US Food and Drug Administration (FDA). The FDA has determined that such clearance or approval is not necessary. All the above immunostains were performed on paraffin embedded tissue. Appropriate positive and negative controls (where applicable) were run in parallel with the patient's specimen; these controls showed expected staining pattern, with acceptable intensity of staining. Immunohistochemical assays have not been validated on decalcified tissues. Results should be interpreted with caution given the raised possibility of false negativity on decalcified specimens. DEPARTMENT OF PATHOLOGY AND LABORATORY MEDICINE [place], [place] [address] [facility] C. Trachomatis / N. Gonorrho eae, DNA Probeon 01-02-2021 C. trachomatis DNA PARI+probe Ql (Genital specimen) NOT Detected Chlamydia trachomatis Nucleic Acid NOT Detected by DNA Amplification using the Cepheid System. Culture is the only recommended test in medical-legal cases such as suspected child abuse or molestation. [facility] N. gonorrhoeae DNA PARI+probe Ql (Unsp spec) NOT Detected Neisseria gonorrhoeae Nucleic Acid NOT Detected by DNA Amplification using the Cepheid System. Culture is the only recommended test in medical-legal cases such as suspected child abuse or molestation. [facility] Test Performed by [facility], [address] [place] [id number] [facility] CBC auto differentialon 12-18 Absolute Baso # 0.0 10*3/uL 0.0 - 0.2 10*3/uL [facility] Absolute Neut # 10.6 10*3/uL High 1.8 - 7.0 10*3/uL [facility] Basophils/100 WBC (Bld) 0.1 % 0.0 - 2.0 % [facility] Eosinophils (Bld) [#/Vol] 0.1 10*3/uL 0.0 - 0.5 10*3/uL [facility] Eosinophils/100 WBC (Bld) 1.0 % 1.0 - 6.0 % [facility] Granulocytes/100 WBC (Bld) 79.5 % 40.0 - 80.0 % [facility] Hematocrit (Bld) [Volume fraction] 30.8 % Low 35.0 - 47.0 % [facility] Hemoglobin.gastrointe stinal spec 1 Ql (Stl) 10.2 g/dL Low 11.7 - 16.0 g/dL [facility] Interpretation and review of laboratory results Abnormal [facility] Lymphocytes (Bld) [#/Vol] 1.8 10*3/uL 1.0 - 4.3 10*3/uL [facility] Lymphocytes/100 WBC (Bld) 13.7 % Low 20.0 - 40.0 % [facility] MCH (RBC) [Entitic mass] 28.7 pg 26.0 - 34.0 pg [facility] MCHC (RBC) [Mass/Vol] 33.1 % 32.0 - 36.0 % [facility] MCV (RBC) [Entitic vol] 86.7 fL 79.0 - 98.0 fL [facility] Monocytes (Bld) [#/Vol] 0.8 10*3/uL 0.0 - 0.8 10*3/uL [facility] Monocytes/100 WBC (Bld) 5.7 % 2.0 - 10.0 % [facility] Platelet distribution width (Bld) [Ratio] 14.8 % High 11.5 - 14.5 % [facility] Platelet mean volume (Bld) [Entitic vol] 6.5 fL Low 7.4 - 10.4 fL [facility] Platelets (Bld) [#/Vol] 380 10*3/uL 140 - 440 10*3/uL [facility] RBC (Bld) [#/Vol] 3.55 10*6/uL Low 3.80 - 5.2 0 10*6/uL [facility] WBC (Bld) [#/Vol] 13.3 10*3/uL High 3.6 - 10.7 10*3/uL [facility] Test Performed by [facility], [address] [place] [id number] [facility] Chlamydia and GC PCR Panelon 01-02-2021 Chlamydia and GC PCR Panel Chlamydia trachomatis PCR --> Status: F NOT Detected Chlamydia trachomatis Nucleic Acid NOT Detected by DNA Amplification using the CepmSchoolid System. Culture is the only recommended test in medical-legal cases such as suspected child abuse or molestation. Chlamydia trachomatis Nucleic Acid NOT Detected by DNA Amplification using the Cepheid System. Culture is the only recommended test in medical-legal cases such as suspected child abuse or molestation. Neisseria gonorrhoeae PCR --> Status: F NOT Detected Neisseria gonorrhoeae Nucleic Acid NOT Detected by DNA Amplification using the CepmSchoolid System. Culture is the only recommended test in medical-legal cases such as suspected child abuse or molestation. Neisseria gonorrhoeae Nucleic Acid NOT Detected by DNA Amplification using the CepmSchoolid System. Culture is the only recommended test in medical-legal cases such as suspected child abuse or molestation. Normal [facility] Comment on above: Performed By: #### C TNGP #### [address] Comp Panel with Mg Reflexon 01-02-2021 Calcium [Mass/Vol] 9.2 mg/dL Normal 8.4-10.4 [facility] Comment on above: Performed By: #### C SW/V #### [address] ALP [Catalytic activity/Vol] 51 U/L Normal 38-126 [facility] Comment on above: Performed By: #### C SW/V #### [address] ALT [Catalytic activity/Vol] 15 U/L Normal 0-34 [facility] Comment on above: Result Comment: The ALT test is performed by an updated assay method. Please note that the reference intervals have been changed and are now sex specific. Performed By: #### C SW/V #### [address] [address] [place], [place] Anion gap [Moles/Vol] 12 mmol/L Normal 3-13 [facility] Comment on above: Performed By: #### C SW/V #### [facility] [address] [place], [place] AST [Catalytic activity/Vol] 26 U/L Normal 15-46 [facility] Comment on above: Performed By: #### C SW/V #### [facility] [address] [place], [place] Bilirubin [Mass/Vol] 0.4 mg/dL Normal 0.2-1.3 [facility] Comment on above: Performed By: #### C SW/V #### [facility] [address] [place], [place] CO2 [Moles/Vol] 18 mmol/L Low 22-30 [facility] Comment on above: Performed By: #### C SW/V #### [address] [place], [place] Glucose [Mass/Vol] 102 mg/dL High 70-100 [facility] Comment on above: Performed By: #### C SW/V #### [address] [place], [place] Protein [Mass/Vol] 7.4 g/dL Normal 6.3-8.2 [facility] Comment on above: Performed By: #### C SW/V #### [facility] [address] [place], [place] Urea nitrogen [Mass/Vol] 5 mg/dL Low 9-20 [facility] Comment on above: Performed By: #### C SW/V #### [address] [place], [place] Creatinine [Mass/Vol] 0.32 mg/dL Low 0.52-1.25 [facility] Comment on above: Performed By: #### C SW/V #### [address] [place], [place] eGFR OTHER > 90.0 Normal >60 [facility] Comment on above: Result Comment: KDIG O guidelines provide the following GFR categories: Stage GFR(ml/min/1.73 m2) Terms G1 >=90 Normal or high G2 60-89 Mildly decreased* G3a 45-59 Mildly to moderately decreased G3b 30-44 Moderately to severely decreased G4 15-29 Severely decreased G5 <15 Kidney failure *Relative to young adult level. In the absence of evidence of kidney damage, neither GFR category G1 nor G2 fulfill the criteria for CKD. The CKD-EPI equation is validated in individuals 18 years of age and older. Currently the best equation for estimating glomerular filtration rate (GFR) from serum creatinine in children is the Bedside Tomlinson equation. It is less accurate in patients with extremes of muscle mass, restriction of dietary protein, ingestion of creatine, extra-renal metabolism of creatinine, or treatment with medications that affect renal tubular creatinine secretion. Performed By: #### C SW/V #### [address] [address] [place], [place] GFR/1.73 sq M.predicted among blacks MDRD (S/P/Bld) [Vol rate/Area] mL/min/{1.73_m2} Normal >60 [facility] Comment on above: Performed By: #### C SW/V #### [address] [address] [place], [place] Potassium [Moles/Vol] 3.7 mmol/L Normal 3.5-5.1 [facility] Comment on above: Performed By: #### C SW/V #### [address] [address] [place], [place] Albumin [Mass/Vol] 4.3 g/dL Normal 3.5-5.0 [facility] Comment on above: Performed By: #### C SW/V #### [address] [address] [address] [place], [place] Chloride [Moles/Vol] 106 mmol/L Normal 98-107 [facility] Comment on above: Performed By: #### C SW/V #### [address] Sodium [Moles/Vol] 137 mmol/L Normal 135-145 [facility] Comment on above: Performed By: #### C SW/V #### [address] [address] [place], [place] Comprehensive Metabolic Pane l w/ Reflex to MGon 01-02-2021 Albumin [Mass/Vol] 4.3 g/dL 3.5 - 5.0 g/dL [facility] ALP (Bld) [Catalytic activity/Vol] 51 U/L 38 - 126 U/L [facility] ALT [Catalytic activity/Vol] 15 U/L 0 - 34 U/L [facility] Comment on above: The ALT test is perf ormed by an updated assay method. Please note that the reference intervals have been changed and are now sex specific. Anion gap [Moles/Vol] 12 mmol/L 3 - 13 mmol/L [facility] AST [Catalytic activity/Vol] 26 U/L 15 - 46 U/L [facility] Bilirubin [Mass/Vol] 0.4 mg/dL 0.2 - 1 .3 mg/dL [facility] Calcium [Mass/Vol] 9.2 mg/dL 8.4 - 10. 4 mg/dL [facility] Chloride [Moles/Vol] 106 mmol/L 98 - 10 7 mmol/L [facility] CO2 [Moles/Vol] 18 mmol/L Low 22 - 30 mmol/L [facility] Creatinine [Mass/Vol] 0.32 mg/dL Low 0.52 - 1.25 mg/dL [facility] EGFR IF NonAfrican Polish >90.0 >60 mL/min [facility] Comment on above: KDIGO guidelines pro vide the following GFR categories: Stage GFR(ml/min/1.73 m2) Terms G1 >=90 Normal or high G2 60-89 Mildly decreased* G3a 45-59 Mildly to moderately decreased G3b 30-44 Moderately to severely decreased G4 15-29 Severely decreased G5 <15 Kidney failure *Relative to young adult level. In the absence of evidence of kidney damage, neither GFR category G1 nor G2 fulfill the criteria for CKD. The CKD-EPI equation is validated in individuals 18 years of age and older. Currently the best equation for estimating glomerular filtration rate (GFR) from serum creatinine in children is the Bedside Tomlinson equation. It is less accurate in patients with extremes of muscle mass, restriction of dietary protein, ingestion of creatine, extra-renal metabolism of creatinine, or treatment with medications that affect renal tubular creatinine secretion. Free PSA/Total PSA [Mass fraction] 7.4 g/dL 6.3 - 8.2 g/dL [facility] GFR/1.73 sq M.predicted among blacks MDRD (S/P/Bld) [Vol rate/Area] mL/min/{1.73_m2} >60 mL/min [facility] Glucose [Mass/Vol] 102 mg/dL High 70 - 100 mg/dL [facility] Interpretation and review of laboratory results Abnormal [facility] Potassium [Moles/Vol] 3.7 mmol/L 3.5 - 5.1 mmol/L [facility] Sodium [Moles/Vol] 137 mmol/L 135 - 145 mmol/L [facility] Urea nitrogen (BldV) [Mass/Vol] 5 mg/dL Low 9 - 20 mg/dL [facility] Creatinine, Random Urineon 03-04-2020 Creatinine (U) [Mass/Vol] 54.0 mg/dL No Range [facility] Creatinine, Ur Randomon 12-18 Creatinine, Ur Random 54.0 mg/dL Normal No Range [facility] Comment on above: Performed By: #### C /FUN #### [address] [address] [place], [place] Hemogram w/ Autodiffon 01-02 Abs Baso Cnt 0.0 10*3/uL Normal 0.0-0.2 [facility] Comment on above: Performed By: #### C SW/V #### [address] [address] [address] [place], [place] Abs Neutrophile Cnt 10.6 10*3/uL High 1.8-7.0 [facility] Comment on above: Performed By: #### C SW/V #### [address] [address] [place] [address] Basophils/100 WBC (Bld) 0.1 % Normal 0.0-2.0 [facility] Comment on above: Performed By: #### C SW/V #### [address] [address] [place], [place] Eosinophils (Bld) [#/Vol] 0.1 10*3/uL Normal 0.0-0.5 [facility] Comment on above: Performed By: #### C SW/V #### [address] [address] Eosinophils/100 WBC (Bld) 1.0 % Normal 1.0-6.0 [facility] Comment on above: Performed By: #### C SW/V #### [facility] [address] [place], [place] Erythrocyte distribution width (RBC) [Ratio] 14.8 % High 11.5-14.5 [facility] Comment on above: Performed By: #### C SW/V #### [facility] [address] [place], [place] Granulocytes/100 WBC (Bld) 79.5 % Normal 40.0-80.0 [facility] Comment on above: Performed By: #### C SW/V #### [address] [address] [address] [place], [place] Hematocrit (Bld) [Volume fraction] 30.8 % Low 35.0-47.0 [facility] Comment on above: Performed By: #### C SW/V #### [address] [address] [address] [place], [place] Hemoglobin (Bld) [Mass/Vol] 10.2 g/dL Low 11.7-16.0 [facility] Comment on above: Performed By: #### C SW/V #### [address] [address] [address] [place], [place] Lymphocytes (Bld) [#/Vol] 1.8 10*3/uL Normal 1.0-4.3 [facility] Comment on above: Performed By: #### C SW/V #### [address] [address] [address] [place], [place] Lymphocytes/100 WBC (Bld) 13.7 % Low 20.0-40.0 [facility] Comment on above: Performed By: #### C SW/V #### [facility] [address] [place], [place] MCH (RBC) [Entitic mass] 28.7 pg Normal 26.0-34.0 [facility] Comment on above: Performed By: #### C SW/V #### [address] [address] [address] [place], [place] MCHC 33.1 % Normal 32.0-36.0 [facility] Comment on above: Performed By: #### C SW/V #### [facility] [address] [place], [place] MCV (RBC) [Entitic vol] 86.7 fL Normal 79.0-98.0 [facility] Comment on above: Performed By: #### C SW/V #### [facility] [address] [place], [place] Monocytes (Bld) [#/Vol] 0.8 10*3/uL Normal 0.0-0.8 [facility] Comment on above: Performed By: #### C SW/V #### [facility] [address] [place], [place] Monocytes/100 WBC (Bld) 5.7 % Normal 2.0-10.0 [facility] Comment on above: Performed By: #### C SW/V #### [address] [address] [address] [place], [place] Platelet mean volume (Bld) [Entitic vol] 6.5 fL Low 7.4-10.4 [facility] Comment on above: Performed By: #### C SW/V #### [facility] [address] [place], [place] Platelets (Bld) [#/Vol] 380 10*3/uL Normal 140-440 [facility] Comment on above: Performed By: #### C SW/V #### [facility] [address] [place], [place] RBC (Bld) [#/Vol] 3.55 10*6/uL Low 3.80-5.20 [facility] Comment on above: Performed By: #### C SW/V #### [facility] [address] [place], [place] WBC (Bld) [#/Vol] 13.3 10*3/uL High 3.6-10.7 [facility] Comment on above: Performed By: #### C SW/V #### [facility] [address] [place], [place] LACTATE DEHYDROGENASEon 12-18 LD 153 U/L 120 - 246 U/L [facility] L[facility] 01-02-2021 LDH 153 U/L Normal 120-246 [facility] Comment on above: Performed By: #### C SW/V #### [facility] [employer] [address] [address] MF US Complete w/ detailon 01-02-2021 MF US Complete w/detail Patient Name: SHAHEED BOBO Maternal Medicine ACCESSION EXAM DATE/TIME PROCEDURE ORDERING PROVIDER [id number] 01/02/2021 10:16 EST [facility] [place] [id number] -CHERYLE, Complete w/detail PHYLLIS Reason For Exam ([facility] US Complete w/detail) CHTN Report OBSTETRICS REPORT (Signed Final 01/02/2021 10:17 am) Patient Info ID #: [id number] : [birth year] (20 yrs) Name: SHAHEED BOBO Visit Date: 01/02/2021 09:41 am Performed By Attending: Sheron Vargas MD Location: Inpatient- Hospital Performed By: Ke Godwin Visit Type: Inpatient - Hospital Referred By: PAOLA THORNTON Service(s) Provided US Level II complete (Targeted OB) 95626 Indications No care Vital Signs Weight (lb): 244 Height: 5'6 BMI: 39.38 Evaluation Num Of Fetuses: 1 Heart Rate(bpm): 132 Cardiac Activity: Regular rhythm Lie: Longitudinal Presentation: Breech Placenta: Posterior Amniotic Fluid NELSON FV: Clinically Appropriate Largest Pocket(cm) 3.6 Biometry -------- BPD: 49.2 mm G. Age: 20w 6d 11 % CI: 67.6 % 70 - 86 OFD: 72.8 mm FL/HC: 18.6 % 18.4 - 20.2 HC: 197.8 mm G. Age: 22w 0d 36 % HC/AC: 1.23 1.06 - 1.25 Maternal Medicine Report AC: 160.2 mm G. Age: 21w 1d 17 % FL/BPD: 74.8 % 71 - 87 FL: 36.8 mm G. Age: 21w 5d 30 % FL/AC: 23.0 % 20 - 24 CER: 24.8 mm G. Age: 22w 5d 87 % NFT: 3.23 mm LV: 5.5 mm CM: 3.55 mm Est. FW: 423 gm 0 lb 15 oz 31 % Gestational Age LMP: 22w 0d Date: 08/01/20 JUJU: 05/08/21 U/S Today: 21w 3d JUJU: 05/12/21 Best: 22w 0d Det. By: LMP (08/01/20) JUJU: 05/08/21 Targeted Anatomy Central Nervous System Calvarium/Cranial V.: Normal appearance Choroid Plexus: Normal appearance Intracranial Berenice: Normal appearance Cereb./Vermis: Normal appearance Cavum: Normal appearance Cisterna Magna: Normal appearance Parenchyma: Normal appearance Corpus Callosum: Normal appearance Lateral Ventricles: Normal appearance Midline Falx: Normal appearance Spine Cervical: Suboptimal views Sacral: Suboptimal views Thoracic: Suboptimal views Shape/Curvature: Suboptimal views Lumbar: Suboptimal views Head/Neck Face: Normal appearance Profile: Suboptimal views Lips: Normal appearance Orbits/Eyes: Normal appearance Nuchal Fold: Normal appearance Mandible: Suboptimal views Nasal Bone: Suboptimal views Maxilla: Suboptimal views Palate: Suboptimal views Thorax Thoracic Contour: Normal appearance Ductal Arch: Normal appearance Lungs: Normal appearance SVC: Suboptimal Views 4 Chamber View: Normal appearance Interventr. Septum: Suboptimal views Cardiac Activity: Normal Cardiac [place]: Normal appearance Cardiac Rhythm: Normal Diaphragm: Normal appearance Cardiac Situs: Normal appearance 3 Vessel View: Normal appearance Rt Outflow Tract: Normal appearance 3 V Trachea View: Suboptimal views Lt Outflow Tract: Normal appearance IVC: Suboptimal Aortic Arch: Suboptimal views Crossing: Suboptimal views Abdomen Ventral Wall: Normal appearance Lt Kidney: Normal appearance Cord Insertion: Normal appearance Rt Kidney: Normal appearance Situs: Normal appearance Bladder: Normal appearance Stomach: Normal appearance Extremities Lt Humerus: Normal appearance Lt Femur: Normal appearance Rt Humerus: Normal appearance Rt Femur: Normal appearance Lt Forearm: Normal appearance Lt Lower Leg: Normal appearance Rt Forearm: Normal appearance Rt Lower Leg: Normal appearance Lt Hand: Normal appearance Lt Foot: Suboptimal views Rt Hand: Normal appearance Rt Foot: Suboptimal views Other Maternal Medicine Report Umbilical Cord: Normal 3-vessel Genitalia: Suboptimal views Comment: Suboptimal ankle views Impression 1. Greenberg live intrautine at 22w 0d. The fetus is in the breech presentation. 2. The anatomic survey is limited by lie, position and acoustic shadowing. Limitations as noted above. 3. biometry consistent with clinically established JUJU. 4. Posterior placenta. Recommendations Recommendations: 1. Consider follow-up sonogram in 2 weeks to complete anaotmic survey. 2. Follow-up per inpatin service. Ultrasound is not diagnostic of chromosomal aneuploidy and does not detect all subtle defects. Normal ultrasound findings do not guarantee normal outcomes. Sheron Vargas MD Electronically Signed Final Report 01/02/2021 10:17 am Final Dictated: 01/02/2021 9:41 am Dictating Physician: Mariela_system, SEC Watch_K Spine Signed Date and Time: 01/02/2021 10:18 am Signed by: Mariela_system, SEC Watch_K Spine Ultrasound ACCESSION EXAM DATE/TIME PROCEDURE ORDERING PROVIDER [id number] 01/02/2021 10:16 EST [facility] [place] [id number] -Inessa GONZALEZ (more content not included)... Normal [facility] MRA Head w/o Contraston - MRA Head w/o Contrast Patient Name: SHAHEED CAMPBELL Magnetic Resonance Imaging ACCESSION EXAM DATE/TIME PROCEDURE ORDERING PROVIDER [id number] 01/02/2021 18:17 EST MRA Head w/o Contrast [id number] -NANCY GIBBS CPT code 42799 Reason For Exam (MRA Head w/o Contrast) papilledema, headache, vertigo Report EXAMINATION: MRI BRAIN WITHOUT CONTRAST CLINICAL INDICATION: Severe papilledema on physical exam with visual disturbance. TECHNIQUE: Multi-planar multi-sequential MR imaging of the brain was performed without intravenous contrast. MRA an MRV of the brain was performed utilizing 3-D [id number], without intravenous contrast. COMPARISON: None. FINDINGS: BRAIN: Prominence of the optic nerve sheaths bilaterally with flattening of the posterior sclera. Ventricles are normal in configuration. No cerebellar tonsillar ectopia. Solid is normal in appearance. Meckel's caves are not expanded. No acute infarction, intracranial hemorrhage or mass. Nonspecific focus of FLAIR hyperintensity in the right frontal centrum semiovale, possibly related to migraines or microangiopathic disease. No hydrocephalus. No extra-axial fluid collections. The skull base flow voids are present. The visualized intraorbital contents are normal. Scattered mucosal thickening in the paranasal sinuses. Trace left mastoid effusion. The visualized osseous structures, soft tissues and partially visualized parotid glands appear normal. MRA: Normal distal internal carotid arteries. The proximal anterior, middle and posterior cerebral arteries are patent bilaterally. Normal vertebrobasilar system. No evidence of vascular stenosis, occlusion, aneurysm or vascular malformation. Magnetic Resonance Imaging Report MRV: Dural Venous Sinuses: There is stenosis of bilateral lateral aspects of the transverse sinuses (series 7 image 24). Remaining dural venous sinuses are patent. Internal Cerebral Veins and Vein of Emre: Patent IMPRESSION: Imaging findings of papilledema with stenosis of the lateral aspects of bilateral transverse sinuses, suggestive of intracranial hypertension. No acute intracranial abnormality. MRA of the head is within normal limits. No dural venous sinus thrombosis. Report Dictated on Final Dictated: 01/03/2021 7:53 am Dictating Physician: MD JOEY, LUCÍA DELAROSA Signed Date and Time: 01/03/2021 8:09 am Signed by: MD HUGHES WASSIM OSAMA Transcribed Date and Time: 01/03/2021 7:53 Normal [facility] MRI Brain w/o Contraston MRI Brain w/o Contrast Patient Name: SHAHEED BOBO Magnetic Resonance Imaging ACCESSION EXAM DATE/TIME PROCEDURE ORDERING PROVIDER [id number] 01/02/2021 18:17 EST MRI Brain w/o Contrast [id number] NANCY BARTH CPT code 21893 Reason For Exam (MRI Brain w/o Contrast) papilledema, vertigo, headache Report EXAMINATION: MRI BRAIN WITHOUT CONTRAST CLINICAL INDICATION: Severe papilledema on physical exam with visual disturbance. TECHNIQUE: Multi-planar multi-sequential MR imaging of the brain was performed without intravenous contrast. MRA an MRV of the brain was performed utilizing 3-D [id number], without intravenous contrast. COMPARISON: None. FINDINGS: BRAIN: Prominence of the optic nerve sheaths bilaterally with flattening of the posterior sclera. Ventricles are normal in configuration. No cerebellar tonsillar ectopia. Solid is normal in appearance. Meckel's caves are not expanded. No acute infarction, intracranial hemorrhage or mass. Nonspecific focus of FLAIR hyperintensity in the right frontal centrum semiovale, possibly related to migraines or microangiopathic disease. No hydrocephalus. No extra-axial fluid collections. The skull base flow voids are present. The visualized intraorbital contents are normal. Scattered mucosal thickening in the paranasal sinuses. Trace left mastoid effusion. The visualized osseous structures, soft tissues and partially visualized parotid glands appear normal. MRA: Normal distal internal carotid arteries. The proximal anterior, middle and posterior cerebral arteries are patent bilaterally. Normal vertebrobasilar system. No evidence of vascular stenosis, occlusion, aneurysm or vascular malformation. Magnetic Resonance Imaging Report MRV: Dural Venous Sinuses: There is stenosis of bilateral lateral aspects of the transverse sinuses (series 7 image 24). Remaining dural venous sinuses are patent. Internal Cerebral Veins and Vein of Emre: Patent IMPRESSION: Imaging findings of papilledema with stenosis of the lateral aspects of bilateral transverse sinuses, suggestive of intracranial hypertension. No acute intracranial abnormality. MRA of the head is within normal limits. No dural venous sinus thrombosis. Report Dictated on Final Dictated: 01/03/2021 7:53 am Dictating Physician: MD JOEY, LUCÍA DELAROSA Signed Date and Time: 01/03/2021 8:09 am Signed by: MD JOEY, LUCÍA DELAROSA Transcribed Date and Time: 01/03/2021 7:53 Normal [facility] MRV Headon 01-02-2021 MRV Head Patient Name: SHAHEED BOBO [facility]#: [id number] Magnetic Resonance Imaging ACCESSION EXAM DATE/TIME PROCEDURE ORDERING PROVIDER [id number] 01/02/2021 18:17 EST MRV Head [id number] NANCY BARTH CPT code 08193 Reason For Exam (MRV Head) papilledema, headache, vertigo Report EXAMINATION: MRI BRAIN WITHOUT CONTRAST CLINICAL INDICATION: Severe papilledema on physical exam with visual disturbance. TECHNIQUE: Multi-planar multi-sequential MR imaging of the brain was performed without intravenous contrast. MRA an MRV of the brain was performed utilizing 3-D [id number], without intravenous contrast. COMPARISON: None. FINDINGS: BRAIN: Prominence of the optic nerve sheaths bilaterally with flattening of the posterior sclera. Ventricles are normal in configuration. No cerebellar tonsillar ectopia. Solid is normal in appearance. Meckel's caves are not expanded. No acute infarction, intracranial hemorrhage or mass. Nonspecific focus of FLAIR hyperintensity in the right frontal centrum semiovale, possibly related to migraines or microangiopathic disease. No hydrocephalus. No extra-axial fluid collections. The skull base flow voids are present. The visualized intraorbital contents are normal. Scattered mucosal thickening in the paranasal sinuses. Trace left mastoid effusion. The visualized osseous structures, soft tissues and partially visualized parotid glands appear normal. MRA: Normal distal internal carotid arteries. The proximal anterior, middle and posterior cerebral arteries are patent bilaterally. Normal vertebrobasilar system. No evidence of vascular stenosis, occlusion, aneurysm or vascular malformation. Magnetic Resonance Imaging Report MRV: Dural Venous Sinuses: There is stenosis of bilateral lateral aspects of the transverse sinuses (series 7 image 24). Remaining dural venous sinuses are patent. Internal Cerebral Veins and Vein of Emre: Patent IMPRESSION: Imaging findings of papilledema with stenosis of the lateral aspects of bilateral transverse sinuses, suggestive of intracranial hypertension. No acute intracranial abnormality. MRA of the head is within normal limits. No dural venous sinus thrombosis. Report Dictated on Final Dictated: 01/03/2021 7:53 am Dictating Physician: MD JOEY, LUCÍA DELAROSA Signed Date and Time: 01/03/2021 8:09 am Signed by: MD HUGHES WASSIM OSAMA Transcribed Date and Time: 01/03/2021 7:53 Normal [facility] No Panel Informationon 01-02 Radiology Study observation (narrative) [facility] Work Phone: Test Performed by [facility], [address] [place] [address] [facility] Test Performed by [facility], [address] [place] [address] [facility] PERIPHERAL BLOOD SMEAR, PATH REVIEWon 01-02-2021 Peripheral Smear see below [facility] Comment on above: See report under Jacquie gical Pathology. Test Performed by [facility], [address] [place] [address] [facility] PERIPHERAL SMEARon 1 PERIPHERAL SMEAR see below Normal [facility] Comment on above: Result Comment: See report under Surgical Pathology. Performed By: #### C SW/V #### [facility] [address] [place] [address] Protein, Ur Randomon 021 Protein, Ur Random 31 mg/dL High No Range [facility] Comment on above: Performed By: #### C /FUN #### [facility] [address] [place] [address] Protein, urine, randomon Interpretation and review of laboratory results Abnormal [facility] Protein (U) [Mass/Vol] 31 mg/dL High No Range [facility] RAD[facility] REPORTon 1 [facility] Radiology Study observation (narrative) [facility] RPR Reflexon 01-02-2021 Reagin Ab RPR Ql (S) Non-Reactive [facility] Comment on above: Non-Reactive Test Performed by [facility], [address] [place] [address] [facility] Rapid Plasma Reagin (RPR) W Reflex Quanton 01-02-2021 Rapid Plasma Reagin (RPR) Qual Non-Reactive Normal [facility] Comment on above: Result Comment: Non- Reactive Performed By: #### C TNGP #### [facility] [address] [place] [address] Rubellaon 01-02-2021 Rubella virus IgG Ql (S) 82.3 [facility] Comment on above: Interpretation Table : <10.0 Antibody NOT Detected >=10.0 Antibody Detected Test Performed by [facility], [address] [place] [address] [facility] Rubella Immune Statuson 12-18 Rubella Immune Status 82.3 Normal [facility] Comment on above: Result Comment: Inte rpretation Table: <10.0 Antibody NOT Detected >=10.0 Antibody Detected Performed By: #### C TNGP #### [facility] [address] [place] [address] Surgical Pathologyon 021 Surgical Pathology [id number] [facility] PATHOLOG[facility]ORATORY MEDICINE [address], [place] [id number] FINAL PERIPHERAL BLOOD REPORT NAME: SHAHEED BOBO N [id number] : 2000 20 Y F BILLING NO.: [id number] LOCATION: [facility] 2208 01 PROCEDURE 01/02/2021 DATE: SURGEON: PAOLA THORNTON MD RECEIVED DATE: 01/02/2021 ATTENDING JULIO C MASTERSON MD REPORT DATE: 01/03/2021 : COPIES TO: DIAGNOSIS: PERIPHERAL BLOOD SMEAR: - LEUKOCYTOSIS WITH MATURE ABSOLUTE NEUTROPHILIA. - NORMOCYTIC ANEMIA. - RULE OUT INFECTION, BLOOD LOSS, NUTRITIONAL DEFICIENCIES, DRUG EFFECT/TOXICITIES, AND/OR ANEMIA OF CHRONIC DISEASE. - BLASTS AND DYSGRANULOPOIESIS ARE NOT IDENTIFIED. MRL/MRL Signature> Lonnie KAUFFMAN CLINICAL INFORMATION: Peripheral Smear SPECIMEN: PERIPHERAL BLOOD SMEAR GROSS DESCRIPTION: Peripheral smear slide prepared for evaluation. MRL/YRS Disclaimer: The following statement applies to all immunohistochemistry, in situ hybridization, molecular studies, and immunofluorescence testing. The use of one or more reagents in the above tests is regulated as an analyte specific reagent (ASR). These tests were developed and their performance characteristics determined by the clinical laboratories of [facility]. They have not been cleared by the [place] Food and Drug Administration (FDA). The FDA has determined that such clearance or approval is not necessary. All the above immunostains were performed on paraffin embedded tissue. Appropriate positive and negative controls (where applicable) were run in parallel with the patient's specimen; these controls showed expected staining pattern, with acceptable intensity of staining. Immunohistochemical assays have not been validated on decalcified tissues. Results should be interpreted with caution given the raised possibility of false negativity on decalcified specimens. DEPARTMENT OF PATHOLOGY AND LABORATORY MEDICINE [place], [place] [address] [id number] Normal [facility] TS GELon 01-02-2021 TS GEL ABO Group: O Rh, Gel: POS Antibody Screen Gel: NEG Normal [facility] Comment on above: Performed By: #### B FRP2 #### [address] [address] TYPE AND SCREENon 01-02-2021 ABO Grouping O [facility] Rh Type Positive [facility] Test Performed by [facility], [address] [place] [id number] [facility] Trichomonas Vaginali, Molecu laly 01-02-2021 Trichomonas Vaginali, Molecular NOT Detected Reference Interval: Not Detected Method: Real-time PCR. Negative results do not completely rule out infection with Trichomonas vaginalis. [facility] Test Performed by [facility], [address] [place] [id number] [facility] Trichomonas vaginalis PCRon 01-02-2021 Trichomonas vaginalis PCR Trichomonas vaginalis PCR --> Status: F NOT Detected Reference Interval: Not Detected Method: Real-time PCR. Negative results do not completely rule out infection with Trichomonas vaginalis. Reference Interval: Not Detected Method: Real-time PCR. Negative results do not completely rule out infection with Trichomonas vaginalis. Normal [facility] Comment on above: Performed By: #### B FRP2 #### [address] [address] URIC ACIDon 01-02-2021 Urate [Mass/Vol] 5.2 mg/dL 3.5 - 8.5 mg/dL [facility] US OB DETAIL ANATOMY S CHILANGO OR FIRST GESTATIONon 01-02-2021 Patient Name: SHAHEED BOBO Maternal Medicine ACCESSION EXAM DATE/TIME PROCEDURE ORDERING PROVIDER [id number] 01/02/2021 10:16 EST [facility] [place] [id number] -GONZALEZ, Complete w/detail PHYLLIS Reason For Exam ([facility] US Complete w/detail) CHTN Report OBSTETRICS REPORT (Signed Final 01/02/2021 10:17 am) Patient Info ID #: [id number] : [birth year] (20 yrs) Name: SHAHEED BOBO Visit Date: 01/02/2021 09:41 am Performed By Attending: Sheron Vargas MD Location: Inpatient- Hospital Performed By: Ke Godwin Visit Type: Inpatient - Hospital Referred By: PAOLA THORNTON Service(s) Provided US Level II complete (Targeted OB) 88908 Indications No care Vital Signs Weight (lb): 244 Height: 5'6 BMI: 39.38 Evaluation Num Of Fetuses: 1 Heart Rate(bpm): 132 Cardiac Activity: Regular rhythm Lie: Longitudinal Presentation: Breech Placenta: Posterior Amniotic Fluid NELSON FV: Clinically Appropriate Largest Pocket(cm) 3.6 Biometry -------- BPD: 49.2 mm G. Age: 20w 6d 11 % CI: 67.6 % 70 - 86 OFD: 72.8 mm FL/HC: 18.6 % 18.4 - 20.2 HC: 197.8 mm G. Age: 22w 0d 36 % HC/AC: 1.23 1.06 - 1.25 Maternal Medicine Report AC: 160.2 mm G. Age: 21w 1d 17 % FL/BPD: 74.8 % 71 - 87 FL: 36.8 mm G. Age: 21w 5d 30 % FL/AC: 23.0 % 20 - 24 CER: 24.8 mm G. Age: 22w 5d 87 % NFT: 3.23 mm LV: 5.5 mm CM: 3.55 mm Est. FW: 423 gm 0 lb 15 oz 31 % Gestational Age LMP: 22w 0d Date: 08/01/20 JUJU: 05/08/21 U/S Today: 21w 3d JUJU: 05/12/21 Best: 22w 0d Det. By: LMP (08/01/20) JUJU: 05/08/21 Targeted Anatomy Central Nervous System Calvarium/Cranial V.: Normal appearance Choroid Plexus: Normal appearance Intracranial Berenice: Normal appearance Cereb./Vermis: Normal appearance Cavum: Normal appearance Cisterna Magna: Normal appearance Parenchyma: Normal appearance Corpus Callosum: Normal appearance Lateral Ventricles: Normal appearance Midline Falx: Normal appearance Spine Cervical: Suboptimal views Sacral: Suboptimal views Thoracic: Suboptimal views Shape/Curvature: Suboptimal views Lumbar: Suboptimal views Head/Neck Face: Normal appearance Profile: Suboptimal views Lips: Normal appearance Orbits/Eyes: Normal appearance Nuchal Fold: Normal appearance Mandible: Suboptimal views Nasal Bone: Suboptimal views Maxilla: Suboptimal views Palate: Suboptimal views Thorax Thoracic Contour: Normal appearance Ductal Arch: Normal appearance Lungs: Normal appearance SVC: Suboptimal Views 4 Chamber View: Normal appearance Interventr. Septum: Suboptimal views Cardiac Activity: Normal Cardiac [place]: Normal appearance Cardiac Rhythm: Normal Diaphragm: Normal appearance Cardiac Situs: Normal appearance 3 Vessel View: Normal appearance Rt Outflow Tract: Normal appearance 3 V Trachea View: Suboptimal views Lt Outflow Tract: Normal appearance IVC: Suboptimal Aortic Arch: Suboptimal views Crossing: Suboptimal views Abdomen Ventral Wall: Normal appearance Lt Kidney: Normal appearance Cord Insertion: Normal appearance Rt Kidney: Normal appearance Situs: Normal appearance Bladder: Normal appearance Stomach: Normal appearance Extremities Lt Humerus: Normal appearance Lt Femur: Normal appearance (more content not included)... [facility] RAD Result, Unknown Prov ider - 01/02/2021 [id number] ACCESSION EXAM DATE/TIME PROCEDURE ORDERING PROVIDER [id number] 01/02/2021 10:16 [place] [place] [id number] -[place], Complete w/detail PHYLLIS Reason For Exam ([facility] US Complete w/detail) CHTN Report OBSTETRICS REPORT (Signed Final 01/02/2021 10:17 am) Patient Info ID #: [id number] : [birth year] (20 yrs) Name: SHAHEED BOBO Visit Date: 01/02/2021 09:41 am Performed By Attending: Sheron Vargas MD Location: Inpatient- Hospital Performed By: Ke Godwin Visit Type: Inpatient - Hospital Referred By: PAOLA THORNTON Service(s) Provided US Level II complete (Targeted OB) 26908 Indications No care Vital Signs Weight (lb): 244 Height: 5'6 BMI: 39.38 Evaluation Num Of Fetuses: 1 Heart Rate(bpm): 132 Cardiac Activity: Regular rhythm Lie: Longitudinal Presentation: Breech Placenta: Posterior Amniotic Fluid NELSON FV: Clinically Appropriate Largest Pocket(cm) 3.6 Biometry -------- BPD: 49.2 mm G. Age: 20w 6d 11 % CI: 67.6 % 70 - 86 OFD: 72.8 mm FL/HC: 18.6 % 18.4 - 20.2 HC: 197.8 mm G. Age: 22w 0d 36 % HC/AC: 1.23 1.06 - 1.25 Maternal Medicine Report AC: 160.2 mm G. Age: 21w 1d 17 % FL/BPD: 74.8 % 71 - 87 FL: 36.8 mm G. Age: 21w 5d 30 % FL/AC: 23.0 % 20 - 24 CER: 24.8 mm G. Age: 22w 5d 87 % NFT: 3.23 mm LV: 5.5 mm CM: 3.55 mm Est. FW: 423 gm 0 lb 15 oz 31 % Gestational Age LMP: 22w 0d Date: 08/01/20 JUJU: 05/08/21 U/S Today: 21w 3d JUJU: 05/12/21 Best: 22w 0d Det. By: LMP (08/01/20) JUJU: 05/08/21 Targeted Anatomy Central Nervous System Calvarium/Cranial V.: Normal appearance Choroid Plexus: Normal appearance Intracranial Berenice: Normal appearance Cereb./Vermis: Normal appearance Cavum: Normal appearance Cisterna Magna: Normal appearance Parenchyma: Normal appearance Corpus Callosum: Normal appearance Lateral Ventricles: Normal appearance Midline Falx: Normal appearance Spine Cervical: Suboptimal views Sacral: Suboptimal views Thoracic: Suboptimal views Shape/Curvature: Suboptimal views Lumbar: Suboptimal views Head/Neck Face: Normal appearance Profile: Suboptimal views Lips: Normal appearance Orbits/Eyes: Normal appearance Nuchal Fold: Normal appearance Mandible: Suboptimal views Nasal Bone: Suboptimal views Maxilla: Suboptimal views Palate: Suboptimal views Thorax Thoracic Contour: Normal appearance Ductal Arch: Normal appearance Lungs: Normal appearance SVC: Suboptimal Views 4 Chamber View: Normal appearance Interventr. Septum: Suboptimal views Cardiac Activity: Normal Cardiac Oakfield: Normal appearance Cardiac Rhythm: Normal Diaphragm: Normal appearance Cardiac Situs: Normal appearance 3 Vessel View: Normal appearance Rt Outflow Tract: Normal appearance 3 V Trachea View: Suboptimal views Lt Outflow Tract: Normal appearance IVC: Suboptimal Aortic Arch: Suboptimal views Crossing: Suboptimal views Abdomen Ventral Wall: Normal appearance Lt Kidney: Normal appearance Cord Insertion: Normal appearance Rt Kidney: Normal appearance Situs: Normal appearance Bladder: Normal appearance Stomach: Normal appearance Extremities Lt Humerus: Normal appearance Lt Femur: Normal appearance Rt Humerus: Normal appearance Rt Femur: Normal appearance Lt Forearm: Normal appearance Lt Lower Leg: Normal appearance Rt Forearm: Normal appearance Rt Lower Leg: Normal appearance Lt Hand: Normal appearance Lt Foot: Suboptimal views Rt Hand: Normal appearance Rt Foot: Suboptimal views Other Maternal Medicine Report Umbilical Cord: Normal 3-vessel Genitalia: Suboptimal views Comment: Suboptimal ankle views Impression 1. Greenberg live intrautine at 22w 0d. The fetus is in the breech presentation. 2. The anatomic survey is limited by lie, position and acoustic shadowing. Limitations as noted above. 3. biometry consistent with clinically established JUJU. 4. Posterior placenta. Recommendations Recommendations: 1. Consider follow-up sonogram in 2 weeks to complete anaotmic survey. 2. Follow-up per inpatin service. Ultrasound is not diagnostic of chromosomal aneuploidy and does not detect all subtle defects. Normal ultrasound findings do not guarantee normal outcomes. Sheron Vargas MD Electronically Signed Final Report 01/02/2021 10:17 am --- Final --- Dictated: 01/02/2021 9:41 am Dictating Physician: [email or web address]_system, [email or web address] Signed Date and Time: 01/02/2021 10:18 am Signed by: Mariela_system, [email or web address]_V (more content not included)... [facility] Work Phone: Radiology Study observation (narrative) [facility] Work Phone: US OB DETAIL ANATOMY S CHILANGO OR FIRST GESTATIONOrdered By: Unknown Result on 01-02-2021 [facility] Uric Acidon 01-02-2021 Urate [Mass/Vol] 5.2 mg/dL Normal 3.5-8.5 [facility] Comment on above: Performed By: #### C SW/V #### [facility] [address] [place] [address] Vital Signs Date Time Vital Sign Value Performing Clinician Facility 10-22-2024 16:03-0400 Body mass index (BMI) [Ratio] 39.71 kg/m2 Liza Herndoni DO Work Phone: [facility] 10-22-2024 16:03-0400 Body temperature 98.01 [degF] Liza Masci DO Work Phone: [facility] 10-22-2024 16:03-0400 Body weight 111.58 kg Liza Masci DO Work Phone: [facility] 10-22-2024 16:03-0400 Diastolic blood pressure 76 mm[Hg] Liza Masci DO Work Phone: [facility] 10-22-2024 16:03-0400 Heart rate 95 /min Liza Herndoni DO Work Phone: [facility] 10-22-2024 16:03-0400 SaO2% (BldA) [Mass fraction] 98 % Liza Tapticai DO Work Phone: [facility] 10-22-2024 16:03-0400 Systolic blood pressure 112 mm[Hg] Liza Herndoni DO Work Phone: [facility] 08-11-2024 15:08-0400 Body temperature 97.6 [degF] Dr. Bryant Grimm MD Work Phone: [facility] 08-11-2024 15:08-0400 Diastolic blood pressure 67 mm[Hg] Dr. Bryant Grimm MD Work Phone: [facility] 08-11-2024 15:08-0400 Heart rate 67 /min Dr. Bryant Grimm MD Work Phone: [facility] 08-11-2024 15:08-0400 Respiratory rate 18 /min Dr. Bryant Grimm MD Work Phone: [facility] 08-11-2024 15:08-0400 SaO2% (BldA) [Mass fraction] 98 % Dr. Bryant Grimm MD Work Phone: [facility] 08-11-2024 15:08-0400 Systolic blood pressure 119 mm[Hg] Dr. Bryant Grimm MD Work Phone: [facility] 08-11-2024 12:07-0400 Body height 167.[address] Bryant Grimm MD Work Phone: [facility] 08-11-2024 12:07-0400 Body mass index (BMI) [Ratio] 42.6 kg/m2 Dr. Bryant Grimm MD Work Phone: [facility] 08-11-2024 12:07-0400 Body weight 119.[address] Bryant Grimm MD Work Phone: [facility] 08-07-2024 10:49-0400 Body height 167.6 cm Rosa M Issa PROFESSIONAL SKATER.CRITICAL CARE EDUCATOR Work Phone: [facility] 08-07-2024 10:49-0400 Body mass index (BMI) [Ratio] 42.69 kg/m2 Rosa M Issa PROFESSIONAL SKATER.CRITICAL CARE EDUCATOR Work Phone: [facility] 08-07-2024 10:49-0400 Body weight 119.98 kg Rosa M Issa PROFESSIONAL SKATER.CRITICAL CARE EDUCATOR Work Phone: [facility] 08-07-2024 10:49-0400 Diastolic blood pressure 76 mm[Hg] Rosa M Issa PROFESSIONAL SKATER.CRITICAL CARE EDUCATOR Work Phone: [facility] 08-07-2024 10:49-0400 Heart rate 80 /min Rosa M Issa PROFESSIONAL SKATER.CRITICAL CARE EDUCATOR Work Phone: [facility] 08-07-2024 10:49-0400 Respiratory rate 16 /min Rosa M Issa PROFESSIONAL SKATER.CRITICAL CARE EDUCATOR Work Phone: [facility] 08-07-2024 10:49-0400 Systolic blood pressure 119 mm[Hg] Rosa M Issa PROFESSIONAL SKATER.CRITICAL CARE EDUCATOR Work Phone: [facility] 2024 15:22-0400 Body height 168 cm Jose G Taylor PROFESSIONAL SKATER.CRITICAL CARE EDUCATOR Work Phone: [facility] 2024 15:22-0400 Body mass index (BMI) [Ratio] 42.75 kg/m2 Jose G Taylor PROFESSIONAL SKATER.CRITICAL CARE EDUCATOR Work Phone: [facility] 2024 15:22-0400 Body weight 120.66 kg Jose G Taylor PROFESSIONAL SKATER.CRITICAL CARE EDUCATOR Work Phone: [facility] 2024 15:22-0400 Diastolic blood pressure 78 mm[Hg] Jose G Taylor PROFESSIONAL SKATER.CRITICAL CARE EDUCATOR Work Phone: [facility] 2024 15:22-0400 Systolic blood pressure 130 mm[Hg] Jose G Taylor PROFESSIONAL SKATER.CRITICAL CARE EDUCATOR Work Phone: [facility] 2024 13:15-0400 Body height 168 cm Liza Herndoni DO Work Phone: [facility] 2024 13:15-0400 Body mass index (BMI) [Ratio] 43.31 kg/m2 Liza Masci DO Work Phone: [facility] 2024 13:15-0400 Body temperature 96.69 [degF] Liza Masci DO Work Phone: [facility] 2024 13:15-0400 Body weight 122.24 kg Liza Masci DO Work Phone: [facility] 2024 13:15-0400 Diastolic blood pressure 78 mm[Hg] Liza Masci DO Work Phone: [facility] 2024 13:15-0400 Heart rate 101 /min Liza Masci DO Work Phone: [facility] 2024 13:15-0400 SaO2% (BldA) [Mass fraction] 99 % Liza Masci DO Work Phone: [facility] 2024 13:15-0400 Systolic blood pressure 126 mm[Hg] Liza Camarillo DO Work Phone: [facility] 06-24-2024 15:29-0400 Diastolic blood pressure 76 mm[Hg] Bryant Grimm MD Work Phone: [facility] 06-24-2024 15:29-0400 Systolic blood pressure 116 mm[Hg] Bryant Grimm MD Work Phone: [facility] 06-24-2024 14:40-0400 Body height 166.4 cm Bryant Grimm MD Work Phone: [facility] 06-24-2024 14:40-0400 Body mass index (BMI) [Ratio] 43.59 kg/m2 Bryant Grimm MD Work Phone: [facility] 06-24-2024 14:40-0400 Body weight 120.66 kg Bryant Grimm MD Work Phone: [facility] 06-24-2024 14:40-0400 Heart rate 112 /min Bryant Grimm MD Work Phone: [facility] 06-24-2024 14:40-0400 SaO2% (BldA) [Mass fraction] 98 % Bryant Grimm MD Work Phone: [facility] 05-25-2024 10:47-0400 Diastolic blood pressure 98 mm[Hg] Bryant Grimm MD Work Phone: [facility] 05-25-2024 10:47-0400 Systolic blood pressure 132 mm[Hg] Bryant Grimm MD Work Phone: [facility] 05-25-2024 10:16-0400 Body weight 121.11 kg Bryant Grimm MD Work Phone: [facility] 05-25-2024 10:16-0400 Heart rate 96 /min Bryant Grimm MD Work Phone: [facility] 05-25-2024 10:16-0400 Respiratory rate 16 /min Bryant Grimm MD Work Phone: [facility] 11-07-2023 14:06-0400 Body weight 117.48 kg Janiya Ciro PROFESSIONAL SKATER.CRITICAL CARE EDUCATOR Work Phone: [facility] 11-07-2023 14:06-0400 Diastolic blood pressure 86 mm[Hg] Janiya Ciro PROFESSIONAL SKATER.CRITICAL CARE EDUCATOR Work Phone: [facility] 11-07-2023 14:06-0400 Heart rate 108 /min Janiya Ciro PROFESSIONAL SKATER.CRITICAL CARE EDUCATOR Work Phone: [facility] 11-07-2023 14:06-0400 Respiratory rate 16 /min Janiya Ciro PROFESSIONAL SKATER.CRITICAL CARE EDUCATOR Work Phone: [facility] 11-07-2023 14:06-0400 SaO2% (BldA) [Mass fraction] 97 % Janiya Ciro PROFESSIONAL SKATER.CRITICAL CARE EDUCATOR Work Phone: [facility] 11-07-2023 14:06-0400 Systolic blood pressure 120 mm[Hg] Janiya Ciro PROFESSIONAL SKATER.CRITICAL CARE EDUCATOR Work Phone: [facility] 11-07-2023 12:34-0400 Body temperature 97.9 [degF] Lara Jimenez PA-C Work Phone: [facility] 11-07-2023 12:34-0400 Body weight 117.48 kg Lara Jimenez PA-C Work Phone: [facility] 11-07-2023 12:34-0400 Diastolic blood pressure 86 mm[Hg] Lara Jimenez PA-C Work Phone: [facility] 11-07-2023 12:34-0400 Heart rate 108 /min Lara Jimenez PA-C Work Phone: [facility] 11-07-2023 12:34-0400 Respiratory rate 18 /min Lara Jimenez PA-C Work Phone: [facility] 11-07-2023 12:34-0400 SaO2% (BldA) [Mass fraction] 97 % Lara Jimenez PA-C Work Phone: [facility] 11-07-2023 12:34-0400 Systolic blood pressure 120 mm[Hg] Lara Jimenez PA-C Work Phone: [facility] 08-15-2023 14:08-0400 Diastolic blood pressure 82 mm[Hg] Bryant Grimm MD Work Phone: [facility] 08-15-2023 14:08-0400 Systolic blood pressure 120 mm[Hg] Bryant Grimm MD Work Phone: [facility] 08-15-2023 14:01-0400 Body weight 118.39 kg Bryant Grimm MD Work Phone: [facility] 08-15-2023 14:01-0400 Heart rate 88 /min Bryant Grimm MD Work Phone: [facility] 08-15-2023 14:01-0400 Respiratory rate 18 /min Bryant Grimm MD Work Phone: [facility] 08-08-2023 07:03-0400 Body temperature 97.7 [degF] Lara Jimenez PA-C Work Phone: [facility] 08-08-2023 07:03-0400 Body weight 116.12 kg Lara Jimenez PA-C Work Phone: [facility] 08-08-2023 07:03-0400 Diastolic blood pressure 86 mm[Hg] Lara Jimenez PA-C Work Phone: [facility] 08-08-2023 07:03-0400 Heart rate 96 /min Lara Jimenez PA-C Work Phone: [facility] 08-08-2023 07:03-0400 Respiratory rate 18 /min Lara Jimenez PA-C Work Phone: [facility] 08-08-2023 07:03-0400 Systolic blood pressure 136 mm[Hg] Laradevante Jimenez PA-C Work Phone: [facility] 07-28-2023 13:43-0400 Body weight 117.48 kg Hetal Valenzuela APRN.CNP Work Phone: [facility] 07-28-2023 13:43-0400 Diastolic blood pressure 82 mm[Hg] Hetal Knoble PROFESSIONAL SKATER.CRITICAL CARE EDUCATOR Work Phone: [facility] 07-28-2023 13:43-0400 Heart rate 85 /min Hetal Knoble PROFESSIONAL SKATER.CRITICAL CARE EDUCATOR Work Phone: [facility] 07-28-2023 13:43-0400 Respiratory rate 14 /min Hetal Knyolette PROFESSIONAL SKATER.CRITICAL CARE EDUCATOR Work Phone: [facility] 07-28-2023 13:43-0400 Systolic blood pressure 129 mm[Hg] Hetal Knoble PROFESSIONAL SKATER.CRITICAL CARE EDUCATOR Work Phone: [facility] 06-02-2023 11:01-0400 Body weight 114.76 kg Janiya Ciro PROFESSIONAL SKATER.CRITICAL CARE EDUCATOR Work Phone: [facility] 06-02-2023 11:01-0400 Diastolic blood pressure 81 mm[Hg] Janiya Ciro PROFESSIONAL SKATER.CRITICAL CARE EDUCATOR Work Phone: [facility] 06-02-2023 11:01-0400 Heart rate 83 /min Janiya Ciro PROFESSIONAL SKATER.CRITICAL CARE EDUCATOR Work Phone: [facility] 06-02-2023 11:01-0400 Respiratory rate 18 /min Janiya Ciro PROFESSIONAL SKATER.CRITICAL CARE EDUCATOR Work Phone: [facility] 06-02-2023 11:01-0400 SaO2% (BldA) [Mass fraction] 100 % Janiya Ciro PROFESSIONAL SKATER.CRITICAL CARE EDUCATOR Work Phone: [facility] 06-02-2023 11:01-0400 Systolic blood pressure 124 mm[Hg] Janiya Ciro PROFESSIONAL SKATER.CRITICAL CARE EDUCATOR Work Phone: [facility] 01-23-2023 12:44-0500 Body temperature 98.4 [degF] Bryant Grimm MD Work Phone: [facility] 01-23-2023 12:44-0500 Body weight 112.49 kg Bryant Grimm MD Work Phone: [facility] 01-23-2023 12:44-0500 Diastolic blood pressure 86 mm[Hg] Bryant Grimm MD Work Phone: [facility] 01-23-2023 12:44-0500 Heart rate 110 /min Bryant Grimm MD Work Phone: [facility] 01-23-2023 12:44-0500 Respiratory rate 16 /min Bryant Grimm MD Work Phone: [facility] 01-23-2023 12:44-0500 Systolic blood pressure 124 mm[Hg] Bryant Grimm MD Work Phone: [facility] 12-02-2022 17:08-0400 Body weight 112.58 kg Nancy Dodge Jr., MD Work Phone: [facility] 12-02-2022 17:08-0400 Diastolic blood pressure 77 mm[Hg] Nancy Dodge Jr., MD Work Phone: [facility] 12-02-2022 17:08-0400 Heart rate 110 /min Nancy Dodge Jr., MD Work Phone: [facility] 12-02-2022 17:08-0400 Respiratory rate 18 /min Nancy Dodge Jr., MD Work Phone: [facility] 12-02-2022 17:08-0400 SaO2% (BldA) [Mass fraction] 98 % Nancy Dodge Jr., MD Work Phone: [facility] 12-02-2022 17:08-0400 Systolic blood pressure 121 mm[Hg] Nancy Dodge Jr., MD Work Phone: [facility] 10-22-2022 17:24-0400 Body temperature 97.81 [degF] Norma Gaspar PA-C Work Phone: [facility] 10-22-2022 17:24-0400 Body weight 114.31 kg Norma Jimy PA-C Work Phone: [facility] 10-22-2022 17:24-0400 Diastolic blood pressure 84 mm[Hg] Norma Athy PA-C Work Phone: [facility] 10-22-2022 17:24-0400 Heart rate 112 /min Norma Athy PA-C Work Phone: [facility] 10-22-2022 17:24-0400 Respiratory rate 18 /min Norma Athy PA-C Work Phone: [facility] 10-22-2022 17:24-0400 SaO2% (BldA) [Mass fraction] 98 % Norma Athy PA-C Work Phone: [facility] 10-22-2022 17:24-0400 Systolic blood pressure 134 mm[Hg] Norma Athy PA-C Work Phone: [facility] 10-17-2022 10:37-0400 Body temperature 97 [degF] Lara Jimenez PA-C Work Phone: [facility] 10-17-2022 10:37-0400 Body weight 113.85 kg Lara Jimenez PA-C Work Phone: [facility] 10-17-2022 10:37-0400 Diastolic blood pressure 80 mm[Hg] Lara Jimenez PA-C Work Phone: [facility] 10-17-2022 10:37-0400 Heart rate 90 /min Lara Jimenez PA-C Work Phone: [facility] 10-17-2022 10:37-0400 Respiratory rate 18 /min Lara Jimenez PA-C Work Phone: [facility] 10-17-2022 10:37-0400 Systolic blood pressure 128 mm[Hg] Lara Jimenez PA-C Work Phone: [facility] 07-17-2022 11:49-0400 Diastolic blood pressure 86 mm[Hg] Lara Jimenez PA-C Work Phone: [facility] 07-17-2022 11:49-0400 Heart rate 72 /min Lara Jimenez PA-C Work Phone: [facility] 07-17-2022 11:49-0400 Systolic blood pressure 131 mm[Hg] Lara Jimenez PA-C Work Phone: [facility] 07-17-2022 11:30-0400 Body temperature 97.81 [degF] Lara Jimenez PA-C Work Phone: [facility] 07-17-2022 11:30-0400 Body weight 114.76 kg Lara Jimenez PA-C Work Phone: [facility] 07-17-2022 11:30-0400 Respiratory rate 16 /min Lara Jimenez PA-C Work Phone: [facility] 05-30-2022 09:22-0400 Body temperature 97.3 [degF] Lara Jimenez PA-C Work Phone: [facility] 05-30-2022 09:22-0400 Body weight 118.84 kg Lara Jimenez PA-C Work Phone: [facility] 05-30-2022 09:22-0400 Diastolic blood pressure 86 mm[Hg] Lara Jimenez PA-C Work Phone: [facility] 05-30-2022 09:22-0400 Heart rate 100 /min Lara Jimenez PA-C Work Phone: [facility] 05-30-2022 09:22-0400 Respiratory rate 18 /min Lara Jimenez PA-C Work Phone: [facility] 05-30-2022 09:22-0400 Systolic blood pressure 118 mm[Hg] Lara Jimenez PA-C Work Phone: [facility] 05-02-2022 10:25-0400 Diastolic blood pressure 84 mm[Hg] Bryant Grimm MD Work Phone: [facility] 05-02-2022 10:25-0400 Systolic blood pressure 126 mm[Hg] Bryant Grimm MD Work Phone: [facility] 11-01-2021 17:05-0400 Body temperature 98.29 [degF] Silvio Jade PROFESSIONAL SKATER.CRITICAL CARE EDUCATOR Work Phone: [facility] 11-01-2021 17:05-0400 Body weight 118.57 kg Silvio Jade PROFESSIONAL SKATER.CRITICAL CARE EDUCATOR Work Phone: [facility] 11-01-2021 17:05-0400 Diastolic blood pressure 84 mm[Hg] Silvio Jade PROFESSIONAL SKATER.CRITICAL CARE EDUCATOR Work Phone: [facility] 11-01-2021 17:05-0400 Heart rate 120 /min Silvio Jade PROFESSIONAL SKATER.CRITICAL CARE EDUCATOR Work Phone: [facility] 11-01-2021 17:05-0400 Respiratory rate 21 /min Silvio Jade PROFESSIONAL SKATER.CRITICAL CARE EDUCATOR Work Phone: [facility] 11-01-2021 17:05-0400 SaO2% (BldA) [Mass fraction] 97 % Silvio Jade PROFESSIONAL SKATER.CRITICAL CARE EDUCATOR Work Phone: [facility] 11-01-2021 17:05-0400 Systolic blood pressure 138 mm[Hg] Silvio Jade PROFESSIONAL SKATER.CRITICAL CARE EDUCATOR Work Phone: [facility] 09-13-2021 10:14-0400 Diastolic blood pressure 72 mm[Hg] Lara Jimenez PA-C Work Phone: [facility] 09-13-2021 10:14-0400 Systolic blood pressure 126 mm[Hg] Lara Jimenez PA-C Work Phone: [facility] 09-13-2021 09:40-0400 Body weight 113.85 kg Lara Jimenez PA-C Work Phone: [facility] 09-13-2021 09:40-0400 Heart rate 88 /min Lara Jimenez PA-C Work Phone: [facility] 09-13-2021 09:40-0400 Respiratory rate 18 /min Lara Jimenez PA-C Work Phone: [facility] 07-04-2021 11:49-0400 Body temperature 98.71 [degF] Lara Jimenez PA-C Work Phone: [facility] 07-04-2021 11:49-0400 Body weight 107.5 kg Lara Jimenez PA-C Work Phone: [facility] 07-04-2021 11:49-0400 Diastolic blood pressure 76 mm[Hg] Lara Jimenez PA-C Work Phone: [facility] 07-04-2021 11:49-0400 Heart rate 72 /min Lara Jimenez PA-C Work Phone: [facility] 07-04-2021 11:49-0400 Respiratory rate 18 /min Lara Jimenez PA-C Work Phone: [facility] 07-04-2021 11:49-0400 Systolic blood pressure 120 mm[Hg] Lara Jimenez PA-C Work Phone: [facility] 05-09-2021 06:07-0400 Body temperature 97.5 [degF] Lillie Calderon MD Work Phone: [facility] 05-09-2021 06:07-0400 Diastolic blood pressure 71 mm[Hg] Lillie Calderon MD Work Phone: [facility] 05-09-2021 06:07-0400 Heart rate 82 /min Lillie Calderon MD Work Phone: [facility] 05-09-2021 06:07-0400 Respiratory rate 16 /min Lillie Calderon MD Work Phone: [facility] 05-09-2021 06:07-0400 SaO2% (BldA) [Mass fraction] 98 % Lillie Calderon MD Work Phone: [facility] 05-09-2021 06:07-0400 Systolic blood pressure 116 mm[Hg] Lillie Calderon MD Work Phone: [facility] 05-07-2021 02:11-0400 Body height 167.6 cm Lillie Calderon MD Work Phone: [facility] 05-07-2021 02:11-0400 Body mass index (BMI) [Percentile] Per age and sex 98.86 % Lillie Calderon MD Work Phone: [facility] 05-07-2021 02:11-0400 Body mass index (BMI) [Ratio] 41.97 kg/m2 Lillie Calderon MD Work Phone: [facility] 05-07-2021 02:11-0400 Body weight 117.94 kg Lillie Calderon MD Work Phone: [facility] 05-05-2021 10:21-0400 Body temperature 98.6 [degF] Asia Atkinson MD Work Phone: [facility] 05-05-2021 10:21-0400 Diastolic blood pressure 79 mm[Hg] Asia Atkinson MD Work Phone: [facility] 05-05-2021 10:21-0400 Heart rate 111 /min Asia Atkinson MD Work Phone: [facility] 05-05-2021 10:21-0400 Respiratory rate 20 /min Asia Atkinson MD Work Phone: [facility] 05-05-2021 10:21-0400 SaO2% (BldA) [Mass fraction] 100 % Asia Atkinson MD Work Phone: [facility] 05-05-2021 10:21-0400 Systolic blood pressure 125 mm[Hg] Asia Atkinson MD Work Phone: [facility] 05-02-2021 10:07-0400 Body height 167.6 cm Asia Atkinson MD Work Phone: [facility] 05-02-2021 10:07-0400 Body mass index (BMI) [Percentile] Per age and sex 98.76 % Asia Atkinson MD Work Phone: [facility] 05-02-2021 10:07-0400 Body mass index (BMI) [Ratio] 41 kg/m2 Asia Atkinson MD Work Phone: [facility] 05-02-2021 10:07-0400 Body weight 115.21 kg Asia Atkinson MD Work Phone: [facility] 01-05-2021 13:00-0500 Body temperature 97.81 [degF] Julio C Masterson MD Work Phone: [facility] 01-05-2021 13:00-0500 Diastolic blood pressure 68 mm[Hg] Julio C Masterson MD Work Phone: [facility] 01-05-2021 13:00-0500 Heart rate 92 /min Julio C Masterson MD Work Phone: [facility] 01-05-2021 13:00-0500 Respiratory rate 16 /min Julio C Masterson MD Work Phone: [facility] 01-05-2021 13:00-0500 SaO2% (BldA) [Mass fraction] 98 % Julio C Masterson MD Work Phone: [facility] 01-05-2021 13:00-0500 Systolic blood pressure 109 mm[Hg] Julio C Masterson MD Work Phone: [facility] 01-04-2021 11:18-0500 Body height 167.6 cm Julio C Masterson MD Work Phone: [facility] 01-01-2021 23:19-0500 Body mass index (BMI) [Percentile] Per age and sex 98.64 % Julio C Masterson MD Work Phone: [facility] 01-01-2021 23:19-0500 Body mass index (BMI) [Ratio] 39.5 kg/m2 Julio C Masterson MD Work Phone: [facility] 01-01-2021 23:19-0500 Body weight 111 kg Julio C Masterson MD Work Phone: [facility] Encounters Encounter Date Encounter Type Care Provider Facility Start: 10-25-2024 End: 10-26-2024 Get Medical Advice Bryatn Grimm MD Work Phone: [facility] [place] Comment on above: Lab Order for Novemb er Appt Iron [facility] Start: 10-22-2024 End: 10-22-2024 Patient encounter procedure Liza Camarillo DO Work Phone: Hematology/Oncology Start: 10-22-2024 End: 10-22-2024 Nursing evaluation of patient and report Nurse Railroad Passenger Agent [facility] Work Phone: OB/Gynecology Comment on above: Need for vaccination (Primary Dx) Start: 10-22-2024 End: 10-22-2024 ambulatory Liza Camarillo DO Work Phone: Hematology/Oncology Comment on above: Iron deficiency (Lynne lakeisha Dx); Thrombocytosis Start: 09-29-2024 End: 09-29-2024 ambulatory Jose G Taylor APRN.CRITICAL CARE EDUCATOR Work Phone: OB/Gynecology Comment on above: HPV Vaccine Start: 09-28-2024 End: 09-29-2024 ambulatory Liza Camarillo DO Work Phone: Hematology/Oncology Comment on above: Appt in October Start: 09-18-2024 End: 09-20-2024 ambulatory Lara Jimenez PA-C Work Phone: [facility] [place] Comment on above: September 28 Appt Start: 09-02-2024 End: 09-02-2024 Telemedicine consultation with patient Soto Palacios APRN.CRITICAL CARE EDUCATOR Work Phone: Neurology [facility] Start: 09-02-2024 End: 09-02-2024 ambulatory Soto Palacios PROFESSIONAL SKATER.CRITICAL CARE EDUCATOR Work Phone: Neurology [facility] Comment on above: Migraine without aur a and without status migrainosus, not intractable (Primary Dx) Start: 08-19-2024 End: 08-19-2024 Patient encounter procedure Us Tech 1 [facility] OB/Gynecology Start: 08-19-2024 End: 08-19-2024 ambulatory Cnc Cutting Operator [facility] [employer] Work Phone: OB/Gynecology Start: 08-16-2024 End: 10-16-2024 Follow-up encounter Jose G Taylor APRN.CRITICAL CARE EDUCATOR Work Phone: OB/Gynecology Start: 08-11-2024 End: 08-11-2024 Chart abstracting Bryant Grimm MD Work Phone: Family Medicine [place] Comment on above: Received Outside Med [facility] Records ([facility] ED visit - No admission) Start: 08-11-2024 End: 08-11-2024 Emergency department patient visit Dr. Bryant Grimm MD Work Phone: -Emergency Department Work Phone: Start: 08-11-2024 End: 08-11-2024 ambulatory Bryant Grimm MD Work Phone: Family Medicine [place] Comment on above: Really bad headache Headache Start: 08-07-2024 End: 08-07-2024 Patient encounter procedure Rosa M Parsons APRN.CRITICAL CARE EDUCATOR Work Phone: Gastroenterolgy Comment on above: WHITNEY (nonalcoholic s teatohepatitis); Altered bowel habits; Chronic constipation; Encounter for screening for malignant neoplasm of colon; Hypertriglyceridemia Start: 08-07-2024 End: 08-07-2024 ambulatory BRYANT GRIMM Facility:[facility] Start: 08-05-2024 End: 08-05-2024 ambulatory Jose G Taylor APRN.CRITICAL CARE EDUCATOR Work Phone: OB/Gynecology Comment on above: Desire for (Primary Dx); Infertility management Husbands Information Start: 08-05-2024 End: 08-05-2024 Telemedicine consultation with patient Jose Gmarek Taylor CRITICAL CARE EDUCATOR Work Phone: OB/Gynecology Start: 08-04-2024 End: 08-04-2024 ambulatory Bryant Grimm MD Work Phone: Family Medicine [place] Comment on above: Gunafacine Start: 07-22-2024 End: 09-21-2024 Follow-up encounter Jose G Taylor APRN.CRITICAL CARE EDUCATOR Work Phone: OB/Gynecology Start: 07-22-2024 End: 08-03-2024 Telephone encounter Liza Camarillo DO Work Phone: Hematology/Oncology Comment on above: Results Start: 2024 Encounter for gynecological examination (general) (routine) without abnormal findings JOSE G TAYLOR [facility] Start: 2024 End: 2024 Patient encounter status Jose G Taylor APRN.CRITICAL CARE EDUCATOR Work Phone: [facility] Start: 2024 End: 2024 Subsequent hospital visit by physician Mri Radio [facility] (I-Stat/1.5t) Work Phone: Radiology Comment on above: Positional headache [R51.0] Start: 2024 End: 2024 ambulatory Liza Camarillo DO Work Phone: Hematology/Oncology Comment on above: Thrombocytosis (Prim alecia Dx); Leukocytosis, unspecified type Start: 2024 End: 2024 Patient encounter procedure Liza Camarillo DO Work Phone: Hematology/Oncology Comment on above: Encounter for gyneco logical examination (general) (routine) without abnormal findings (Primary Dx); Screening for cervical cancer; Encounter for screening for human papillomavirus (HPV); Need for prophylactic vaccination/inoculation against viral disease; Need for vaccination; Screen for STD (sexually transmitted disease) Start: 06-30-2024 End: 06-30-2024 ambulatory Bryant Grimm MD Work Phone: Family Medicine [place] Comment on above: Most Recent CBC Start: 06-29-2024 End: 06-29-2024 ambulatory Bryant Grimm MD Work Phone: Family Medicine [place] Comment on above: ADHD Medication Start: 06-25-2024 End: 08-25-2024 Follow-up encounter Bryant Grimm MD Work Phone: Family Medicine [place] Comment on above: Results Start: 06-24-2024 End: 06-24-2024 Patient encounter procedure Bryant Grimm MD Work Phone: Family Medicine [place] Comment on above: Elevated BP without diagnosis of hypertension (Primary Dx) Start: 06-24-2024 End: 06-24-2024 ambulatory BRYANT GRIMM Facility:[facility] Start: 06-19-2024 End: 06-21-2024 ambulatory [facility] Provider Neurology [facility] Comment on above: Topamax Start: 05-27-2024 End: 05-27-2024 ambulatory Bryant Grimm MD Work Phone: Family Medicine [place] Comment on above: Labs Start: 05-27-2024 End: 05-27-2024 Telephone encounter Bryant Grimm MD Work Phone: Family Medicine [place] Comment on above: Requesting Lab resul Start: 05-26-2024 End: 07-26-2024 Follow-up encounter Soto Palacios APRN.CRITICAL CARE EDUCATOR Work Phone: Neurology [facility] Start: 05-25-2024 End: 05-26-2024 ambulatory Bryant Grimm MD Work Phone: Family Medicine [place] Comment on above: Labs for October Start: 05-25-2024 End: 05-25-2024 Patient encounter procedure Bryant Grimm MD Work Phone: Family Medicine [place] Comment on above: Hyperlipidemia, mixe d (Primary Dx); Elevated hemoglobin A1c; Major depressive disorder with single episode, remission status unspecified; PANCHO (generalized anxiety disorder); Attention deficit hyperactivity disorder (ADHD), combined type; Oppositional defiant disorder; Pseudotumor cerebri; Class 2 obesity due to excess calories without serious comorbidity with body mass index (BMI) of 37.0 to 37.9 in adult; Thrombocytosis; Elevated LFTs; WHITNEY (nonalcoholic steatohepatitis); Altered bowel habits; Chronic constipation; Hypercalcemia; Vitamin D deficiency; Leukocytosis, unspecified type; Medication management; Elevated blood pressure reading without diagnosis of hypertension Start: 05-21-2024 End: 05-21-2024 ambulatory Bryant Grimm MD Work Phone: Family Medicine [place] Start: 05-21-2024 End: 05-21-2024 Letter encounter Bryant Grimm MD Work Phone: Family Medicine [place] Comment on above: Letter Start: 05-18-2024 End: 05-21-2024 Follow-up encounter Hetal Valenzuela APRN.CNP Work Phone: Family Medicine [place] Comment on above: Results Start: 05-18-2024 End: 05-18-2024 ambulatory BRYANT GRIMM Facility:[facility] Start: 05-18-2024 End: 05-18-2024 Subsequent hospital visit by physician [facility] 2 Work Phone: Radiology Comment on above: Elevated liver enzym es [R74.8] Start: 05-07-2024 End: 05-07-2024 ambulatory Lara Jimenez PA-C Work Phone: Family Medicine [place] Comment on above: Elevated liver enzym es (Primary Dx); Leukocytosis, unspecified type; Hypercalcemia; Microscopic hematuria; Hyperlipidemia, mixed Start: 05-07-2024 End: 05-07-2024 Telemedicine consultation with patient Lara Jimenez PA-C Work Phone: Family Medicine [place] Start: 05-06-2024 End: 05-06-2024 ambulatory Lara Jimenez PA-C Work Phone: Family [facility] [place] Comment on above: Newest Lab Results Start: 05-05-2024 End: 05-05-2024 ambulatory BRYANT GRIMM Facility:[facility] Start: 04-07-2024 End: 04-07-2024 Chart abstracting Lara Jimenez PA-C Work Phone: [facility] [place] Comment on above: Outside Labs-[facility] Ord ered Start: 04-01-2024 End: 04-21-2024 ambulatory Bryant Grimm MD Work Phone: Family [facility] [place] Start: 04-01-2024 End: 04-21-2024 Patient encounter procedure Bryant Grimm MD Work Phone: [facility] [place] Comment on above: Upcoming April Appoi ntment Start: 03-31-2024 End: 04-01-2024 Telephone encounter Lara Jimenez PA-C Work Phone: [facility] [place] Comment on above: Results Start: 03-22-2024 End: 03-22-2024 ambulatory Lara Jimenez PA-C Work Phone: Family [facility] Comment on above: Elevated hemoglobin A1c (Primary Dx); Increased thirst Start: 03-22-2024 End: 03-22-2024 Telemedicine consultation with patient Lara Jimenez PA-C Work Phone: [facility] [place] Start: 03-19-2024 End: 03-19-2024 E-mail encounter from caregiver Mercedes Boothe MA [facility] [place] Start: 03-19-2024 End: 03-19-2024 Patient encounter procedure Mercedes Boothe MA [facility] Comment on above: appointment Start: 02-10-2024 End: 02-10-2024 ambulatory Soto Palacios APRN.CRITICAL CARE EDUCATOR Work Phone: Neurology Comment on above: Headaches, tension ( Primary Dx); Pseudotumor cerebri Start: 02-10-2024 End: 02-10-2024 Telemedicine consultation with patient Soto Tuttlekirsten JORGENSENCRITICAL CARE EDUCATOR Work Phone: Neurology Start: 01-29-2024 End: 01-30-2024 Telephone encounter Bryant Grimm MD Work Phone: [facility] Comment on above: Medication Clearance Form Start: 01-14-2024 End: 01-14-2024 ambulatory Bryant Grimm MD Work Phone: [facility] Comment on above: ADHD Testing and Sti mulant Medication Start: 01-11-2024 End: 01-13-2024 ambulatory Bryant Grimm MD Work Phone: [facility] Comment on above: Physicals Start: 11-07-2023 End: 11-07-2023 Patient encounter procedure Janiya Tanner APRN.CRITICAL CARE EDUCATOR Work Phone: Neurology Comment on above: JUAN M on CPAP (Primary Dx) Start: 11-07-2023 End: 11-07-2023 Office outpatient visit 25 minutes Lara Jimenez PA-C Work Phone: [facility] Comment on above: Major depressive dis order with single episode, remission status unspecified (Primary Dx); PANCHO (generalized anxiety disorder) Start: 10-03-2023 End: 10-08-2023 Telephone encounter Jose G Taylor APRN.CRITICAL CARE EDUCATOR Work Phone: OB/Gynecology Comment on above: Appointment Start: 09-10-2023 ambulatory Bryant Grimm Facility :[facility] Start: 08-19-2023 Telephone encounter Mercedes Boothe MA [facility] Comment on above: Orders ([facility] ) Start: 08-15-2023 End: 08-15-2023 [facility] Comment on above: Neck pain [M54.2] Start: 08-15-2023 End: 08-15-2023 Patient encounter procedure Bryant Grimm MD Work Phone: [facility] Comment on above: Neck pain (Primary D x); Numbness and tingling of both upper extremities; Right arm pain Start: 08-15-2023 Telephone encounter Bryant Grimm MD Work Phone: [facility] Comment on above: Results Start: 08-08-2023 End: 08-08-2023 Patient encounter procedure Lara Jimenez PA-C Work Phone: [facility] Comment on above: Numbness and tinglin g in right hand (Primary Dx) Start: 08-07-2023 ambulatory Bryant koehler MD Work Phone: [facility] Comment on above: Wrist Problems Start: 07-29-2023 Telephone encounter Hetal tillman APRN.CRITICAL CARE EDUCATOR Work Phone: [facility] Comment on above: Results Start: 07-28-2023 End: 07-28-2023 Patient encounter procedure Hetal Valenzuela APRN.CRITICAL CARE EDUCATOR Work Phone: [facility] Comment on above: Hyperlipidemia, mixe d (Primary Dx); PANCHO (generalized anxiety disorder); Oppositional defiant disorder; Major depressive disorder with single episode, remission status unspecified; Attention deficit hyperactivity disorder (ADHD), combined type; Paradoxical insomnia; Class 2 obesity due to excess calories without serious comorbidity with body mass index (BMI) of 37.0 to 37.9 in adult; Headache, unspecified headache type Start: 07-10-2023 Chart abstracting Bryant bowers MD Work Phone: [facility] Comment on above: Outside ED Start: 06-06-2023 Refill Lara Medellin on PA-C Work Phone: [facility] Comment on above: Refill Request Start: 06-03-2023 ambulatory Janiya Tanner APRN.CRITICAL CARE EDUCATOR Work Phone: Neurology Comment on above: C Pap Machine Start: 06-02-2023 End: 06-02-2023 Patient encounter procedure Janiya Tanner APRN.CRITICAL CARE EDUCATOR Work Phone: Neurology Comment on above: Obstructive sleep ap moe (Primary Dx); Excessive daytime sleepiness Start: 05-29-2023 Telephone encounter Janiya moseley PROFESSIONAL SKATER.CRITICAL CARE EDUCATOR Work Phone: Neurology Start: 05-22-2023 End: 05-22-2023 ambulatory [facility] Work Phone: Start: 05-22-2023 End: 05-22-2023 Patient encounter procedure [facility] Work Phone: Start: 05-12-2023 ambulatory Janiya Tanner PROFESSIONAL SKATER.CRITICAL CARE EDUCATOR Work Phone: Neurology Comment on above: Sleep Test Start: 03-31-2023 Telephone encounter Nancy Dodge MD Work Phone: Neurology Comment on above: Appointment Cancelle d (due to provider out); Future Appointment (for [facility]) Start: 01-29-2023 ambulatory Nancy lópez MD Work Phone: Neurology Comment on above: Previous Message Start: 01-23-2023 Telephone encounter Nancy Dodge MD Work Phone: Neurology Comment on above: Patient Update Start: 01-23-2023 End: 01-23-2023 Patient encounter procedure Bryant Grimm MD Work Phone: [facility] Comment on above: Hyperlipidemia, mixe d (Primary Dx); Elevated hemoglobin A1c; Pseudotumor cerebri; Thrombocytosis; Paradoxical insomnia; Attention deficit hyperactivity disorder (ADHD), combined type; PANCHO (generalized anxiety disorder); Major depressive disorder with single episode, remission status unspecified; Oppositional defiant disorder; Class 2 obesity due to excess calories without serious comorbidity with body mass index (BMI) of 37.0 to 37.9 in adult Start: 01-15-2023 ambulatory Nancy lópez MD Work Phone: Neurology Comment on above: Medicine/Test Result s/Etc Start: 01-01-2023 Telephone encounter Nancy Dodge MD Work Phone: Neurology Comment on above: Results Referral Request Start: 12-30-2022 End: 12-30-2022 Subsequent hospital visit by physician Mri Radio [facility] [employer] (I-Stat/1.5t) Work Phone: Radiology Comment on above: Pseudotumor cerebri [G93.2] Start: 12-02-2022 End: 12-02-2022 Patient encounter procedure Nancy Dodge MD Work Phone: Neurology Comment on above: Pseudotumor cerebri (Primary Dx) Start: 11-04-2022 End: 11-04-2022 Subsequent hospital visit by physician Ct [facility] (I-Stat) Work Phone: Cat Scan Comment on above: Pseudotumor [G93.2] Start: 10-22-2022 End: 10-22-2022 Subsequent hospital visit by physician Xr [facility] [place] Work Phone: Radiology Comment on above: Foot pain, right [M7 9.671] Start: 10-22-2022 End: 10-22-2022 Patient encounter procedure Norma Gaspar PA-C Work Phone: [facility] Comment on above: Foot pain, right (Pr imary Dx) Start: 10-18-2022 Telephone encounter Bryant Grimm MD Work Phone: Family Medicine [place] Comment on above: Results Start: 10-17-2022 End: 10-17-2022 Patient encounter procedure Lara Jimenez PA-C Work Phone: Family Medicine [place] Comment on above: Pseudotumor (Primary Dx); Headache, unspecified headache type Start: 10-08-2022 ambulatory Bryant koehler MD Work Phone: [facility] [place] Comment on above: Diamox Start: 08-05-2022 Refill Lara kelly PA-C Work Phone: [facility] Comment on above: Med Change Request Start: 08-04-2022 Refill Bryant koehler MD Work Phone: [facility] [place] Comment on above: Refill Request Start: 07-18-2022 Telephone encounter Bryant Grimm MD Work Phone: [facility] [place] Comment on above: Results Start: 07-17-2022 End: 07-17-2022 Office outpatient visit 25 minutes Lara Jimenez PA-C Work Phone: [facility] [place] Comment on above: Major depressive dis order with single episode, remission status unspecified (Primary Dx); PANCHO (generalized anxiety disorder) Start: 06-06-2022 ambulatory Bryant koehler MD Work Phone: [facility] Comment on above: New Client Start: 05-30-2022 End: 05-30-2022 Patient encounter procedure Lara Jimenez PA-C Work Phone: [facility] [place] Comment on above: Major depressive dis order with single episode, remission status unspecified (Primary Dx); Urticaria Start: 05-03-2022 Telephone encounter Bryant Grimm MD Work Phone: [facility] [place] Comment on above: Results Start: 05-02-2022 End: 05-02-2022 Patient encounter procedure Bryant Grimm MD Work Phone: [facility] [place] Comment on above: Major depressive dis order with single episode, remission status unspecified (Primary Dx); PANCHO (generalized anxiety disorder); Class 2 obesity due to excess calories without serious comorbidity with body mass index (BMI) of 37.0 to 37.9 in adult; Weight gain; Pseudotumor; Encounter for screening for diabetes mellitus; Encounter for lipid screening for cardiovascular disease; Fatigue, unspecified type; Medication management Start: 11-01-2021 End: 11-01-2021 Subsequent hospital visit by physician Marcelina [facility] [place] Work Phone: Radiology Comment on above: Pain of right lower extremity [M79.604] Start: 11-01-2021 End: 11-01-2021 Patient encounter procedure Silvio King JAMEELCRITICAL CARE EDUCATOR Work Phone: [facility] Comment on above: Pain of right lower extremity (Primary Dx) Start: 10-05-2021 Refill Lara Medellin on PA-C Work Phone: [facility] Comment on above: Med Change Request Start: 09-13-2021 ambulatory Lara Medellin on PA-C Work Phone: [facility] Comment on above: Labs Start: 09-13-2021 End: 09-13-2021 Patient encounter procedure Lara Jimenez PA-C Work Phone: [facility] Comment on above: depressio n (Primary Dx); PANCHO (generalized anxiety disorder); Weight gain; Screening for diabetes mellitus; Encounter for lipid screening for cardiovascular disease Start: 08-24-2021 Refill Lara Medellin on PA-C Work Phone: [facility] Comment on above: Refill Request Start: 07-04-2021 End: 07-04-2021 Patient encounter procedure Lara Tony PA-C Work Phone: [facility] Comment on above: depressio n (Primary Dx); PANCHO (generalized anxiety disorder); Pseudotumor Start: 07-01-2021 ambulatory Lara Medellin on PA-C Work Phone: [facility] Comment on above: fridayjuly 04 Start: 06-26-2021 Telephone encounter Lara spring PA-C Work Phone: [facility] Comment on above: Results Start: 05-07-2021 End: 05-09-2021 Evaluation and management of inpatient Lillie Calderon MD Work Phone: [facility] Comment on above: Septicemia (HCC) (Pr imary Dx); Pyrexia of unknown origin following delivery Start: 05-02-2021 End: 05-05-2021 Evaluation and management of inpatient Asia Atkinson MD Work Phone: [facility] Comment on above: S/P (Prima ry Dx) Start: 01-01-2021 End: 01-05-2021 Evaluation and management of inpatient Julio C Masterson MD Work Phone: [facility] Start: 01-28-2018 Patient encounter status Anamaria Jimenez PA-C Work Phone: [facility] Work Phone: Start: 11-05-2016 End: 08-19-2024 Patient encounter status [facility] Procedures Date Procedure Procedure Detail Performing Clinician Start: 08-19-2024 Us pelvic nonobstetr ic real-time image complete Jose G Taylor PROFESSIONAL SKATER.CRITICAL CARE EDUCATOR Work Phone: Start: 08-11-2024 CT of head without contrast Dr. Bryant Grimm MD Work Phone: Start: 2024 Mra head w/o contrst material Soto Palacios PROFESSIONAL SKATER.CRITICAL CARE EDUCATOR Work Phone: Start: 05-18-2024 Us abdominal real ti me w/image limited Lara Jimenez PA-C Work Phone: Start: 03-30-2024 CBC W/DIFF/PLT ([facility]) [facility] Provider Start: 03-30-2024 Comprehensive metabo lic 2000 panel - Serum or Plasma [facility] Provider Start: 03-30-2024 Hemoglobin A1c/Hemoglobin.total in Blood [facility] Provider Start: 03-30-2024 UA WITH MICROSCOPIC (FOR REMOTE [facility] USE) [facility] Provider Start: 08-15-2023 Radex spine cervical 4 or 5 views Bryant Grimm MD Work Phone: Start: 12-30-2022 Mra head w/o contrst material Nancy Dodge MD Work Phone: Start: 11-04-2022 Ct head/brain w/o co ntrast material Lara Jimenez PA-C Work Phone: Start: 10-22-2022 Radex ankle complete minimum 3 views Norma Gaspar PA-C Work Phone: Start: 11-01-2021 Radiologic examinati on tibia & fibula 2 views Silvio Jade APRN.CNP Work Phone: Start: 09-06-2021 Adult depression scr eening assessment Lara Jimenez PA-C Work Phone: Start: 07-04-2021 Adult depression scr eening assessment Lara Jimenez PA-C Work Phone: Start: 05-08-2021 Basic metabolic pane l calcium total Aniceto Ca DO Work Phone: Start: 05-07-2021 ADD ON LAB TEST Xavier Ruiz Mynor DO Work Phone: Start: 05-07-2021 Culture fngi mold/ye ast prsmptv oth xcpt blood Dayana Farooq DO Work Phone: Start: 05-07-2021 TRICHOMONAS VAGINALI , MOLECULAR Aniceto Ca DO Work Phone: Start: 05-07-2021 Ct angiography chest w/contrast/noncontrast Aniceto Ca DO Work Phone: Start: 05-07-2021 RESPIRATORY PANEL, MOLECULAR, WITH COVID-19 Aniceto Ca DO Work Phone: Start: 05-07-2021 Computed tomography of abdomen and pelvis with contrast Nile Sumeet DO Work Phone: Start: 05-07-2021 Us transvaginal Emily rose Sumeet DO Work Phone: Start: 05-07-2021 End: 05-07-2021 Culture bacterial quanttative colony count urine Lillie Calderon MD Work Phone: Start: 05-07-2021 Urnls dip stick/tabl et rgnt auto w/o microscopy Lillie Calderon MD Work Phone: Start: 05-07-2021 Assay of troponin quantitative Lillie Calderon MD Work Phone: Start: 05-07-2021 CULTURE, BLOOD 1 Sundar Calderon MD Work Phone: Start: 05-07-2021 Hepatic function panel Lillie Calderon MD Work Phone: Start: 05-07-2021 LACTATE, SEPSIS Aniceto davis DO Work Phone: Start: 05-07-2021 Ecg routine ecg w/le ast 12 lds w/i&r Lillie Calderon MD Work Phone: Start: 05-03-2021 Blood count hemoglobin Tata Moncada MD Work Phone: Start: 05-02-2021 Antibody screen Asia whyte MD Work Phone: Start: 05-02-2021 Blood typing serologic abo Tata Moncada MD Work Phone: Start: 05-02-2021 Comprehensive metabo lic panel Tata Moncada MD Work Phone: Start: 01-03-2021 Cell count misc body fluids w/differential count Nicolette Kelley MD Work Phone: Start: 01-03-2021 Glucose body fluid o ther than blood Nicolette Kelley MD Work Phone: Start: 01-03-2021 Creatinine clearance Me pato Segura DO Work Phone: Start: 01-03-2021 PROTIME/INR & PTT Gwend gurjit Patterson MD Work Phone: Start: 01-03-2021 Protein total xcpt refractometry urine Shane Trivedi DO Work Phone: Start: 01-02-2021 Mra head w/o contrst material Nancy Gibbs MD Work Phone: Start: 01-02-2021 RADIOLOGY REPORT 3m Sca nning Start: 01-02-2021 Us preg uterus w/det ail berenice 1st gestation Phyllismelonie Gonzalez DO Work Phone: Start: 01-02-2021 Antibody screen Julio C toscano MD Work Phone: Start: 01-02-2021 Blood typing serologic abo Paola Thornton MD Work Phone: Start: 01-02-2021 End: 01-02-2021 Lactate dehydrogenase ldh Paola valdez MD Work Phone: Start: 01-02-2021 RPR REFLEX Paola Barba MD Work Phone: Start: 01-02-2021 RUBELLA IMMUNE Paola Thornton MD Work Phone: Start: 01-02-2021 End: 01-02-2021 Culture bacterial quanttative colony count urine Paola Thornton MD Work Phone: Start: 01-02-2021 TRICHOMONAS VAGINALI , MOLECULAR Paola Thornton MD Work Phone: Start: 01-02-2021 Level iv surg pathol ogy gross&microscopic exam Paola Thornton MD Work Phone: Start: 09-22-2020 Adult depression scr eening assessment Lara Jimenez PA-C Work Phone: H/O: section S/P Asia Atkinson MD Work Phone: Plan of Treatment Date Care Activity Detail Author Start: 07-22-2027 Screening for malignant neoplasm of cervix Cervical Cancer Screening [facility] Start: 2025 End: 2025 Patient encounter procedure 2025 3:00 PM EDT Office Visit OB/Gynecology [address] [place] [address] Margy Harrell APRN.CRITICAL CARE EDUCATOR [address] [place] [id number] annual OB/Gynecology Comment on above: annual Start: 2025 GC (Gonorrhea) Screening (18-24) GC (Gonorrhea) Screening (18-24) [facility] Start: 2025 Screening for Chlamydia trachomatis Chlamydia Screening (18-) [facility] Start: 02-09-2025 End: 02-09-2025 Patient encounter procedure 02/09/2025 10:45 AM EST Appointment Ambulatory Surgery [address] [place] [address] Kary Machado, DO [address] [place] [address] Altered bowel habits [R19.4]; Chronic constipation [K59.09] DO NOT MOVE TIME Ambulatory Surgery Comment on above: Altered bowel habits [R19.4]; Chronic co nstipation [K59.09] DO NOT MOVE TIME Start: 02-09-2025 End: 02-09-2025 Patient encounter procedure Ambulatory Surgery Comment on above: Altered bowel habits [R19.4]; Chronic co nstipation [K59.09] DO NOT MOVE TIME Follow Up Start: 02-07-2025 End: 02-07-2025 Patient encounter procedure 02/07/2025 8:00 AM EST Appointment Ambulatory Surgery [address] [place] [address] Ej Velez MD [address] [facility] [place] [address] Altered bowel habits [R19.4]; Chronic constipation [K59.09] DO NOT MOVE TIME Ambulatory Surgery Comment on above: Altered bowel habits [R19.4]; Chronic co nstipation [K59.09] DO NOT MOVE TIME Start: 01-21-2025 End: 01-21-2025 Patient encounter procedure Maternal Medicine [facility] Comment on above: Rescheduled for Desire for [Z3 1.9] Follow Up Start: 01-21-2025 End: 01-21-2025 ambulatory 01/21/2025 11:20 AM EST Procedure Gastroenterology [address] [id number] Request: DDI VIBRATION CONTROLLED TRANSIENT ELASTOGRAPHY (VCTE) Gastroenterology Comment on above: Request: DDI VIBRATION CONTROLLED TRANSI ENT ELASTOGRAPHY (VCTE) Start: 01-17-2025 9vhpv vacc 2/3 dose sched im use HPV VACCINE, 9-VALENT (GARDASIL 9) Immunization/Injection Routine Need for vaccination Expected: 01/17/2025 (Approximate) [facility] Comment on above: Expected: 01/17/2025 (Approximate) Start: 12-29-2024 End: 12-29-2024 Follow-up encounter 12/29/2024 3:30 PM EST [facility] Neurology [facility] [address] [place] [address] Soto Palacios APRN.CRITICAL CARE EDUCATOR [address] [place] [address] [place] follow up Neurology [facility] Comment on above: [place] follow up Start: 12-29-2024 End: 12-29-2024 Patient encounter procedure 12/29/2024 8:40 AM EST Office Visit [facility] [place] [address] [place] [address] Bryant Grimm MD [address] [place], [place] [id number] wellness [facility] Comment on above: wellness Start: 12-24-2024 End: 12-24-2024 Patient encounter procedure [facility] [place] Comment on above: Physical Yearly follow up. OS A Start: 12-16-2024 End: 12-16-2024 Patient encounter procedure 12/16/2024 4:30 PM EDT Office Visit Neurology [address] [place] [address] Janiya Tanner APRN.CRITICAL CARE EDUCATOR [address] [place] [address] JUAN M follow up Neurology Comment on above: JUAN M follow up Start: 12-16-2024 End: 12-16-2024 ambulatory 12/16/2024 4:15 PM EDT Results Only [facility] [address] [place] [address] lab [facility] Comment on above: lab Start: 11-25-2024 End: 11-25-2024 Patient encounter procedure [facility] [place] Comment on above: Physical Yearly follow up. OS A Start: 11-12-2024 End: 02-11-2025 25-hydroxyvitamin D3 [Mass/volume] in Serum or Plasma VITAMIN D 25 HYDROXY Lab Routine Vitamin D deficiency Expected: 11/12/2024, Expires: 02/11/2025 [facility] Comment on above: Expected: 11/12/2024, Expires: Start: 11-12-2024 End: 02-11-2025 CBC W Auto Differential panel - Blood COMPLETE BLOOD COUNT AND DIFFERENTIAL Lab Routine Thrombocytosis Leukocytosis, unspecified type Expected: 11/12/2024, Expires: 02/11/2025 [facility] Comment on above: Expected: 11/12/2024, Expires: Start: 11-12-2024 End: 02-11-2025 Comprehensive metabolic 2000 panel - Serum or Plasma COMPREHENSIVE METABOLIC PANEL Lab Routine Hyperlipidemia, mixed Elevated LFTs WHITNEY (nonalcoholic steatohepatitis) Expected: 11/12/2024, Expires: 02/11/2025 [facility] Comment on above: Expected: 11/12/2024, Expires: Start: 11-12-2024 End: 02-11-2025 Hemoglobin A1c in Blood HEMOGLOBIN A1C Lab Routine Elevated hemoglobin A1c Expected: 11/12/2024, Expires: 02/11/2025 [facility] Comment on above: Expected: 11/12/2024, Expires: Start: 11-12-2024 End: 02-11-2025 LIPID PANEL, NONFASTING LIPID PANEL, NONFASTING Lab Routine Hyperlipidemia, mixed WHITNEY (nonalcoholic steatohepatitis) Expected: 11/12/2024, Expires: 02/11/2025 [facility] Comment on above: Expected: 11/12/2024, Expires: Start: 11-12-2024 End: 02-11-2025 Thyrotropin [Units/volume] in Serum or Plasma THYROID STIMULATING HORMONE Lab Routine Major depressive disorder with single episode, remission status unspecified PANCHO (generalized anxiety disorder) Medication management Expected: 11/12/2024, Expires: 02/11/2025 [facility] Comment on above: Expected: 11/12/2024, Expires: Start: 11-12-2024 End: 02-11-2025 Urinalysis complete panel - Urine URINALYSIS, WITH MICROSCOPIC Lab Routine Hyperlipidemia, mixed Expected: 11/12/2024, Expires: 02/11/2025 [facility] Comment on above: Expected: 11/12/2024, Expires: Start: 11-11-2024 End: 11-11-2024 ambulatory 11/11/2024 7:30 AM EDT Results Only [place] [facility] Laboratory [address] [place] [address] lab [facility] Comment on above: lab Start: 11-06-2024 Covid-19 Vaccine () Covid-19 Vaccine () [facility] Comment on above: Postponed from 10/19/2023 (Declined at t his time) Start: 11-06-2024 Covid-19 Vaccine () Covid-19 Vaccine () [facility] Comment on above: Postponed from 10/19/2023 (Declined at t his time) Start: 11-02-2024 End: 11-02-2024 ambulatory Gastroenterology Comment on above: Request: DDI VIBRATION CONTROLLED TRANSI ENT ELASTOGRAPHY (VCTE) Start: 11-02-2024 End: 11-02-2024 Patient encounter procedure Maternal Medicine [facility] Comment on above: Rescheduled for Desire for [Z3 1.9] IRON STUDIES NEED 2 APPOINTMENTS PER NURSE Start: 10-28-2024 End: 01-27-2025 Iron and Iron binding capacity panel - Serum or Plasma IRON AND TIBC Lab Routine Thrombocytosis Iron deficiency Expected: 10/28/2024, Expires: 01/27/2025 [facility] Work Phone: Comment on above: Expected: 10/28/2024, Expires: Start: 10-28-2024 End: 10-28-2024 Patient encounter procedure [facility] Comment on above: IRON STUDIES NEED 2 APPOINTMENTS PER TITO SE Start: 10-22-2024 End: 10-22-2024 ambulatory 10/22/2024 4:10 PM EDT Visit (SP) Office Hematology/Oncology [address] [place] [address] Liza Camarillo DO [address] [place] [address] 2MO OV/LABS 10/04*THIS DATE PER PATIENT Hematology/Oncology Comment on above: 2MO OV/LABS 10/04*THIS DATE PER PATIENT Start: 10-21-2024 End: 10-21-2024 Nursing evaluation of patient and report 10/21/2024 4:00 PM EDT Nurse Visit OB/Gynecology [address] [place] [address] Wstr, Nurse Railroad Passenger Agent [facility] [address] [place] [address] HPV vaccine OB/Gynecology Comment on above: HPV vaccine Start: 10-14-2024 End: 10-14-2024 ambulatory 10/14/2024 7:15 AM EDT Results Only [place] [facility] Laboratory [address] [place] [address] CBC/Iron studies/Sed rate/CRP [facility] Comment on above: CBC/Iron studies/Sed rate/CRP Start: 10-13-2024 End: 10-13-2024 Patient encounter procedure 10/13/2024 1:30 PM EDT Office Visit Neurology [address] [place] [address] Janiya Tanner APRN.CRITICAL CARE EDUCATOR [address] [place] [address] Follow Up Neurology Comment on above: Follow Up Start: 10-04-2024 End: 10-04-2024 ambulatory 10/04/2024 7:45 AM EDT Results Only [place] [facility] Laboratory [address] [place] [address] CBC/Iron studies/Sed rate/CRP [facility] Comment on above: CBC/Iron studies/Sed rate/CRP Start: 10-03-2024 DTaP/Tdap/Td vaccine (7 - Td or Tdap) DTaP/Tdap/Td vaccine (7 - Td or Tdap) [facility] Start: 10-03-2024 Urine microalbumin profile [facility] Start: 09-29-2024 End: 12-28-2024 C reactive protein [Mass/volume] in Serum or Plasma C-REACTIVE PROTEIN Lab Routine Thrombocytosis Leukocytosis, unspecified type Expected: 09/29/2024 (Approximate), Expires: 12/28/2024 [facility] Comment on above: Expected: 09/29/2024 (Approximate), Expi res: 12/28/2024 Start: 09-29-2024 End: 12-28-2024 CBC W Auto Differential panel - Blood COMPLETE BLOOD COUNT AND DIFFERENTIAL Lab STAT Thrombocytosis Leukocytosis, unspecified type Expected: 09/29/2024 (Approximate), Expires: 12/28/2024 [facility] Work Phone: Comment on above: Expected: 09/29/2024 (Approximate), Expi res: 12/28/2024 Start: 09-29-2024 End: 12-28-2024 Erythrocyte sedimentation rate SEDIMENTATION RATE, WESTERGREN Lab Routine Thrombocytosis Leukocytosis, unspecified type Expected: 09/29/2024 (Approximate), Expires: 12/28/2024 [facility] Comment on above: Expected: 09/29/2024 (Approximate), Expi res: 12/28/2024 Start: 09-29-2024 End: 12-28-2024 Ferritin [Mass/volume] in Serum or Plasma FERRITIN Lab Routine Thrombocytosis Leukocytosis, unspecified type Expected: 09/29/2024 (Approximate), Expires: 12/28/2024 [facility] Comment on above: Expected: 09/29/2024 (Approximate), Expi res: 12/28/2024 Start: 09-29-2024 End: 12-28-2024 Iron and Iron binding capacity panel - Serum or Plasma IRON AND TIBC Lab Routine Thrombocytosis Leukocytosis, unspecified type Expected: 09/29/2024 (Approximate), Expires: 12/28/2024 [facility] Comment on above: Expected: 09/29/2024 (Approximate), Expi res: 12/28/2024 Start: 09-29-2024 End: 09-29-2024 ambulatory 09/29/2024 7:15 AM EDT Results Only [place] [facility] Laboratory [address] [place] [address] CBC/Iron studies/Sed rate/CRP [facility] Comment on above: CBC/Iron studies/Sed rate/CRP Start: 09-28-2024 End: 09-28-2024 Patient encounter procedure 09/28/2024 7:00 AM EDT Office Visit [facility] [address] [place] [address] Lara Jimenez PA-C [address] [place] [address] HPV vaccines 1 [facility] Comment on above: HPV vaccines 1 Start: 09-23-2024 End: 09-23-2024 Patient encounter procedure 09/23/2024 4:30 PM EDT Office Visit Neurology [address] [facility] [place] [address] Janiya Tanner APRN.CRITICAL CARE EDUCATOR [address] [id number] Follow Up Neurology Comment on above: Follow Up Start: 09-19-2024 9vhpv vacc 2/3 dose sched im use HPV VACCINE, 9-VALENT (GARDASIL 9) Immunization/Injection Routine Need for vaccination Expected: 09/19/2024 (Approximate) [facility] Comment on above: Expected: 09/19/2024 (Approximate) Start: 09-09-2024 End: 09-09-2024 Patient encounter procedure 09/09/2024 2:00 PM EDT Office Visit Neurology [address] [facility] [place] [id number] Janiya Tanner, PROFESSIONAL SKATER.CRITICAL CARE EDUCATOR [address] [id number] Follow Up Neurology Comment on above: Follow Up Start: 09-02-2024 End: 09-02-2024 Follow-up encounter 09/02/2024 3:30 PM EDT [facility] Neurology [facility] [address] [place] [address] Soto Palacios APRN.CRITICAL CARE EDUCATOR [address] [place] [address] [place] follow up Neurology [facility] Comment on above: [place] follow up Start: 08-19-2024 End: 08-19-2024 Manual pelvic examination 08/19/2024 8:00 AM EDT Procedure OB/Gynecology [address] [place] [address] Remote, Cnc Cutting Operator [facility] [employer] [address] [place] [address] PELVIC US WHI for Desire for [Z31.9] OB/Gynecology Comment on above: PELVIC US WHI for Desire for [ Z31.9] Start: 08-11-2024 [facility] Start: 08-07-2024 End: 08-07-2024 Patient encounter procedure 08/07/2024 11:00 AM EDT Office Visit Gastroenterolgy [address] [place] [address] Rosa M Parsons APRN.CRITICAL CARE EDUCATOR [address] [place] [address] WHITNEY (nonalcoholic steatohepatitis) [K75.81]; Altered bowel habits [R19.4]; Chronic constipation [K59.09 Gastroenterolgy Comment on above: WHITNEY (nonalcoholic steatohepatitis) [K75 .81]; Altered bowel habits [R19.4]; Chronic constipation [K59.09 Start: 08-07-2024 End: 08-07-2024 ambulatory 08/07/2024 10:30 AM EDT Results Only [facility] [address] [place] [address] THYROID STIMULATING HORMONE [TSH] [facility] Comment on above: THYROID STIMULATING HORMONE [TSH] Start: 08-05-2024 End: 11-04-2024 17-Hydroxyprogesteron e [Mass/volume] in Serum or Plasma HYDROXYPROGESTERONE-17 Lab Routine Desire for Infertility management Expected: 08/05/2024, Expires: 11/04/2024 [facility] Comment on above: Expected: 08/05/2024, Expires: Start: 08-05-2024 End: 11-04-2024 Cobalamin (Vitamin B12) [Mass/volume] in Serum or Plasma VITAMIN B12 Lab Routine Desire for Infertility management Expected: 08/05/2024, Expires: 11/04/2024 [facility] Comment on above: Expected: 08/05/2024, Expires: Start: 08-05-2024 End: 11-04-2024 Comprehensive metabolic 2000 panel - Serum or Plasma COMPREHENSIVE METABOLIC PANEL Lab Routine Desire for Infertility management Expected: 08/05/2024, Expires: 11/04/2024 [facility] Comment on above: Expected: 08/05/2024, Expires: Start: 08-05-2024 End: 11-04-2024 DHEA-S BLD DHEA-S BLD Lab Routine Desire for Infertility management Expected: 08/05/2024, Expires: 11/04/2024 [facility] Comment on above: Expected: 08/05/2024, Expires: Start: 08-05-2024 End: 11-04-2024 Fasting glucose [Mass/volume] in Serum or Plasma GLUCOSE, FASTING Lab Routine Desire for Infertility management Expected: 08/05/2024, Expires: 11/04/2024 [facility] Comment on above: Expected: 08/05/2024, Expires: Start: 08-05-2024 End: 11-04-2024 Follitropin [Units/volume] in Serum or Plasma FOLLICLE STIMULATING HORMONE Lab Routine Desire for Infertility management Expected: 08/05/2024, Expires: 11/04/2024 [facility] Comment on above: Expected: 08/05/2024, Expires: Start: 08-05-2024 End: 11-04-2024 Hemoglobin A1c in Blood HEMOGLOBIN A1C Lab Routine Desire for Infertility management Expected: 08/05/2024, Expires: 11/04/2024 [facility] [facility] Comment on above: Expected: 08/05/2024, Expires: Start: 08-05-2024 End: 11-04-2024 Insulin [Units/volume] in Serum or Plasma INSULIN, TOTAL, SERUM Lab Routine Desire for Infertility management Expected: 08/05/2024, Expires: 11/04/2024 [facility] Comment on above: Expected: 08/05/2024, Expires: Start: 08-05-2024 End: 11-04-2024 Lutropin [Units/volume] in Serum or Plasma LUTEINIZING HORMONE Lab Routine Desire for Infertility management Expected: 08/05/2024, Expires: 11/04/2024 [facility] Comment on above: Expected: 08/05/2024, Expires: Start: 08-05-2024 End: 11-04-2024 Progesterone [Mass/volume] in Serum or Plasma PROGESTERONE Lab Routine Desire for Infertility management Expected: 08/05/2024, Expires: 11/04/2024 [facility] Comment on above: Expected: 08/05/2024, Expires: Start: 08-05-2024 End: 11-04-2024 Prolactin [Mass/volume] in Serum or Plasma PROLACTIN Lab Routine Desire for Infertility management Expected: 08/05/2024, Expires: 11/04/2024 [facility] Comment on above: Expected: 08/05/2024, Expires: Start: 08-05-2024 End: 11-04-2024 Testosterone [Mass/volume] in Serum or Plasma TESTOSTERONE, TOTAL BY IMMUNOASSAY (ADULT MALES, OR INDIVIDUALS ON TESTOSTERONE THERAPY) Lab Routine Desire for Infertility management Expected: 08/05/2024, Expires: 11/04/2024 [facility] Comment on above: Expected: 08/05/2024, Expires: Start: 08-05-2024 End: 11-04-2024 Thyrotropin [Units/volume] in Serum or Plasma THYROID STIMULATING HORMONE Lab Routine Desire for Infertility management Expected: 08/05/2024, Expires: 11/04/2024 [facility] Comment on above: Expected: 08/05/2024, Expires: 5 Start: 08-05-2024 End: 08-05-2025 US Pelvis PELVIC US [facility] Anc Imaging Routine Desire for Infertility management Expected: 08/05/2024, Expires: 08/05/2025 [facility] Work Phone: Comment on above: Expected: 08/05/2024, Expires: 6 Start: 08-05-2024 End: 08-05-2024 ambulatory 08/05/2024 7:00 AM EDT [facility] OB/Gynecology [address] [place], [place] [id number] Jose G Taylor APRN.CRITICAL CARE EDUCATOR [address] [place] [address] See [employer] message (discuss next steps) OB/Gynecology Comment on above: See [employer] message (discuss next steps) Start: 2024 End: 10-20-2024 Ferritin [Mass/volume] in Serum or Plasma [facility] Comment on above: Expected: 2024, Expires: Start: 2024 End: 10-20-2024 Iron and Iron binding capacity panel - Serum or Plasma [facility] Work Phone: Comment on above: Expected: 2024, Expires: Start: 2024 End: 2024 Patient encounter procedure Radiology Comment on above: Positional headache [R51.0]; New daily p ersistent headache [G44. Positional headache [R51.0] Annual Exam Start: 2024 End: 2024 ambulatory 2024 1:00 PM EDT Visit (SP) Office Hematology/Oncology [address] [place] [address] Liza Camarillo DO [address] [place] [address] EYEGLASS MAKER/LEUKOCYTOSIS/THROMBOC YTOSIS/RE BY DR GRIMM*This date and time per patient Hematology/Oncology Comment on above: EYEGLASS MAKER/LEUKOCYTOSIS/THROMBOCYTOSIS/RE BY DR GRIMM*This date and time per patient Start: 07-08-2024 End: 07-08-2024 Patient encounter procedure 07/08/2024 7:15 AM EDT Office Visit OB/Gynecology [address] [place] [address] Jose G Taylor, PROFESSIONAL SKATER.CRITICAL CARE EDUCATOR [address] [place] [address] Annual Exam OB/Gynecology Comment on above: Annual Exam Start: 06-28-2024 End: 06-28-2024 Patient encounter procedure Radiology Comment on above: Positional headache [R51.0]; New daily p ersistent headache [G44. BP check Start: 06-26-2024 End: 06-26-2024 ambulatory 06/26/2024 10:15 AM EDT Results Only [place] [facility] Draw Station [address] [place] [address] [place] [facility] Draw Station Start: 06-24-2024 End: 09-23-2024 25-hydroxyvitamin D3 [Mass/volume] in Serum or Plasma VITAMIN D 25 HYDROXY Lab Routine Vitamin D deficiency Expected: 06/24/2024, Expires: 09/23/2024 [facility] Work Phone: Comment on above: Expected: 06/24/2024, Expires: Start: 06-24-2024 End: 09-23-2024 CBC W Auto Differential panel - Blood COMPLETE BLOOD COUNT AND DIFFERENTIAL Lab Routine Leukocytosis, unspecified type Expected: 06/24/2024, Expires: 09/23/2024 [facility] Comment on above: Expected: 06/24/2024, Expires: Start: 06-10-2024 End: 06-10-2024 Patient encounter procedure 06/10/2024 7:15 AM EDT Office Visit OB/Gynecology [address] [place] [address] Jose G Taylor APRN.CRITICAL CARE EDUCATOR [address] [place] [address] Annual Exam OB/Gynecology Comment on above: Annual Exam Start: 06-09-2024 End: 06-09-2024 Patient encounter procedure 06/09/2024 6:30 PM EDT Appointment [facility] [address] [place] [address] Positional headache [R51.0]; New daily persistent headache [G44.52] [facility] Comment on above: Positional headache [R51.0]; New daily p ersistent headache [G44.52] Start: 05-26-2024 End: 05-26-2024 Patient encounter procedure 05/26/2024 6:40 PM EDT Office Visit Family Medicine [place] [address] [place] [address] Bryant Grimm MD [address] [facility] [place] [address] 6 month follow up Family Medicine [place] Comment on above: 6 month follow up Start: 05-25-2024 End: 05-25-2024 Patient encounter procedure Radiology Comment on above: Positional headache [R51.0]; New daily p ersistent headache [G44.52] 6 month follow up Start: 05-25-2024 End: 05-25-2024 ambulatory 05/25/2024 7:30 AM EDT Results Only [place] [facility] Laboratory [address] [place] [address] [place] [facility] Laboratory Start: 05-18-2024 End: 05-18-2024 ambulatory 05/18/2024 4:45 PM EDT Results Only [place] [facility] Laboratory [address] [place] [address] [place] [facility] Laboratory Start: 05-18-2024 End: 08-17-2024 25-hydroxyvitamin D3 [Mass/volume] in Serum or Plasma VITAMIN D 25 HYDROXY Lab Routine Hypercalcemia Expected: 05/18/2024, Expires: 08/17/2024 [facility] Comment on above: Expected: 05/18/2024, Expires: Start: 05-18-2024 End: 08-17-2024 Acute hepatitis 2000 panel - Serum HEP ACUTE PANEL BL Lab Routine Elevated liver enzymes Expected: 05/18/2024, Expires: 08/17/2024 [facility] Comment on above: Expected: 05/18/2024, Expires: Start: 05-18-2024 End: 08-17-2024 Bacteria identified in Urine by Culture BACTERIAL CULTURE, URINE Microbiology Routine Leukocytosis, unspecified type Microscopic hematuria Expected: 05/18/2024, Expires: 08/17/2024 [facility] Comment on above: Expected: 05/18/2024, Expires: Start: 05-18-2024 End: 08-17-2024 Calcium [Mass/volume] in Serum or Plasma CALCIUM, TOTAL Lab Routine Hypercalcemia Expected: 05/18/2024, Expires: 08/17/2024 [facility] Comment on above: Expected: 05/18/2024, Expires: Start: 05-18-2024 End: 08-17-2024 CBC W Auto Differential panel - Blood COMPLETE BLOOD COUNT AND DIFFERENTIAL Lab Routine Leukocytosis, unspecified type Expected: 05/18/2024, Expires: 08/17/2024 [facility] Comment on above: Expected: 05/18/2024, Expires: Start: 05-18-2024 End: 08-17-2024 Hepatic function 2000 panel - Serum or Plasma HEPATIC FUNCTION PNL Lab Routine Elevated liver enzymes Expected: 05/18/2024, Expires: 08/17/2024 [facility] Work Phone: Comment on above: Expected: 05/18/2024, Expires: Start: 05-18-2024 End: 08-17-2024 LIPID PANEL, NONFASTING LIPID PANEL, NONFASTING Lab Routine Hyperlipidemia, mixed Expected: 05/18/2024, Expires: 08/17/2024 [facility] Comment on above: Expected: 05/18/2024, Expires: Start: 05-18-2024 End: 08-17-2024 Parathyrin.intact [Mass/volume] in Serum or Plasma PTH INTACT Lab Routine Hypercalcemia Expected: 05/18/2024, Expires: 08/17/2024 [facility] Comment on above: Expected: 05/18/2024, Expires: Start: 05-18-2024 End: 08-17-2024 Urinalysis complete panel - Urine URINALYSIS, WITH MICROSCOPIC Lab Routine Microscopic hematuria Expected: 05/18/2024, Expires: 08/17/2024 [facility] Comment on above: Expected: 05/18/2024, Expires: Start: 05-18-2024 End: 05-18-2024 Patient encounter procedure 05/18/2024 7:00 AM EDT Appointment Radiology [address] [place] [address] Elevated liver enzymes [R74.8] Radiology Comment on above: Elevated liver enzymes [R74.8] Start: 05-07-2024 End: 05-07-2024 ambulatory 05/07/2024 12:20 PM EDT [facility] Family Medicine [place] [address] [place] [address] Lara Jimenez PA-C [address] [place] [address] discuss lab results Family Yael Estrada Comment on above: discuss lab results Start: 05-05-2024 End: 05-05-2024 Patient encounter procedure 05/05/2024 6:40 PM EDT Office Visit Family Yael Estrada [address] [place] [address] Bryant Grimm MD [address] [place] [address] 6 month follow up Family Yael Estrada Comment on above: 6 month follow up Start: 05-05-2024 End: 05-05-2024 Patient encounter procedure 05/05/2024 11:15 AM EDT Office Visit Neurology [facility] [address] [place] [address] Soto Palacios APRN.CRITICAL CARE EDUCATOR [address] [place] [address] Headache follow up Neurology [facility] Comment on above: Headache follow up Start: 03-31-2024 End: 06-30-2024 Calcium [Mass/volume] in Serum or Plasma CALCIUM, TOTAL Lab Routine Hypercalcemia Expected: 03/31/2024, Expires: 06/30/2024 [facility] Comment on above: Expected: 03/31/2024, Expires: Start: 03-31-2024 End: 06-30-2024 Hepatic function 2000 panel - Serum or Plasma HEPATIC FUNCTION PNL Lab Routine Elevated LFTs Expected: 03/31/2024, Expires: 06/30/2024 [facility] Work Phone: Comment on above: Expected: 03/31/2024, Expires: Start: 03-22-2024 End: 06-21-2024 CBC W Auto Differential panel - Blood COMPLETE BLOOD COUNT AND DIFFERENTIAL Lab Routine Elevated hemoglobin A1c Increased thirst Expected: 03/22/2024, Expires: 06/21/2024 [facility] Comment on above: Expected: 03/22/2024, Expires: Start: 03-22-2024 End: 06-21-2024 Comprehensive metabolic 2000 panel - Serum or Plasma COMPREHENSIVE METABOLIC PANEL Lab Routine Elevated hemoglobin A1c Increased thirst Expected: 03/22/2024, Expires: 06/21/2024 [facility] Comment on above: Expected: 03/22/2024, Expires: Start: 03-22-2024 End: 06-21-2024 Hemoglobin A1c in Blood HEMOGLOBIN A1C Lab Routine Elevated hemoglobin A1c Increased thirst Expected: 03/22/2024, Expires: 06/21/2024 [facility] Work Phone: Comment on above: Expected: 03/22/2024, Expires: Start: 03-22-2024 End: 06-21-2024 Urinalysis complete panel - Urine URINALYSIS, WITH MICROSCOPIC Lab Routine Elevated hemoglobin A1c Increased thirst Expected: 03/22/2024, Expires: 06/21/2024 [facility] Comment on above: Expected: 03/22/2024, Expires: Start: 03-22-2024 End: 03-22-2024 ambulatory 03/22/2024 1:40 PM EST [facility] [address] [place] [address] Hetal Valenzuela PROFESSIONAL SKATER.CRITICAL CARE EDUCATOR [address] [place], [place] [id number] Blood Sugar Issues? [facility] Comment on above: Blood Sugar Issues? Start: 02-04-2024 End: 02-04-2024 Patient encounter procedure [facility] Comment on above: 6 month follow up Headaches Start: 12-15-2023 End: 12-15-2023 Patient encounter procedure 12/15/2023 2:00 PM EDT Office Visit Neurology [address] [id number] Evita Gore, PROFESSIONAL SKATER.CRITICAL CARE EDUCATOR [address] [place] [address] sleep apnea Neurology Comment on above: sleep apnea Start: 12-05-2023 End: 12-05-2023 ambulatory 12/05/2023 11:40 AM EDT [facility] [address] [place] [address] Lara Jimenez PA-C [address] [place] [address] medication recheck [facility] Comment on above: medication recheck Start: 11-07-2023 End: 11-07-2023 Patient encounter procedure 11/07/2023 2:30 PM EDT Office Visit Neurology [address] [place], [place] [id number] Janiya Tanner, PROFESSIONAL SKATER.CRITICAL CARE EDUCATOR [address] [place] [address] CPAP 3 month follow up [facility] Comment on above: CPAP 3 month follow up [facility] Start: 11-07-2023 End: 11-07-2023 Patient encounter procedure 11/07/2023 12:40 PM EDT Office Visit Family Medicine [place] [address] [place] [address] Lara Jimenez PA-C [address] [place] [address] Depression is getting bad [facility] Comment on above: Depression is getting bad Start: 10-19-2023 Covid-19 Vaccine () Covid-19 Vaccine () [facility] Start: 09-10-2023 End: 09-10-2023 ambulatory 09/10/2023 11:15 AM EDT OT/PT/Speech Visit [facility] [address] [place] [address] Kenya Wade, PT Neck pain [M54.2]; Numbness and tingling of both upper extremities [R20.0, R20.2]; Right arm pain [M79.601] [facility] Comment on above: Neck pain [M54.2]; Numbness and tingling of both upper extremities [R20.0, R20.2]; Right arm pain [M79.601] Start: 09-08-2023 End: 09-08-2023 Patient encounter procedure 09/08/2023 2:00 PM EDT Office Visit Neurology [address] [place] [address] Janiya Tanner APRN.CRITICAL CARE EDUCATOR [address] [place] [address] CPAP 3 month follow up [facility] Neu[facility] Comment on above: CPAP 3 month follow up [facility] Start: 08-15-2023 End: 08-15-2023 Patient encounter procedure 08/15/2023 4:00 PM EDT Office Visit OB/Gynecology [address] [place] [address] Jose G Taylor APRN.CRITICAL CARE EDUCATOR [address] [place] [address] ANNUAL OB/Gynecology Comment on above: ANNUAL Start: 08-08-2023 End: 08-08-2023 Patient encounter procedure OB/Gynecology Comment on above: ANNUAL numbness and pain in right wrist/hand Start: 07-28-2023 End: 10-27-2023 LIPID PANEL, NONFASTING [facility] Work Phone: Comment on above: Expected: 07/28/2023, Expires: Start: 07-28-2023 End: 07-28-2023 Patient encounter procedure OB/Gynecology Comment on above: ANNUAL physical Start: 07-22-2023 Screening for malignant neoplasm of cervix Cervical Cancer Screening [facility] Start: 07-18-2023 COVID-19 VACCINE (#1) COVID-19 VACCINE (#1) [facility] Comment on above: Postponed from 01/20/2003 (Declined at t his time) Start: 01-23-2023 End: 04-24-2023 Hemoglobin A1c in Blood [facility] Work Phone: Comment on above: Expected: 01/23/2023, Expires: 4 Start: 12-02-2022 End: 02-01-2023 JOE BY IFA WITH REFLEX JOE BY IFA WITH REFLEX Lab Routine Pseudotumor cerebri Expected: 12/02/2022, Expires: 02/01/2023 [facility] Work Phone: Comment on above: Expected: 12/02/2022, Expires: 3 Start: 12-02-2022 End: 02-01-2023 Borrelia burgdorferi IgG and IgM panel - Serum LYME AB LATE >30 DAYS SYMPTOMS Lab Routine Pseudotumor cerebri Expected: 12/02/2022, Expires: 02/01/2023 [facility] Work Phone: Comment on above: Expected: 12/02/2022, Expires: 3 Start: 12-02-2022 End: 02-01-2023 Cobalamin (Vitamin B12) [Mass/volume] in Serum or Plasma VITAMIN B12 BLOOD Lab Routine Pseudotumor cerebri Expected: 12/02/2022, Expires: 02/01/2023 [facility] Work Phone: Comment on above: Expected: 12/02/2022, Expires: 3 Start: 12-02-2022 End: 02-01-2023 Erythrocyte sedimentation rate SED RATE WESTERGREN Lab Routine Pseudotumor cerebri Expected: 12/02/2022, Expires: 02/01/2023 [facility] Work Phone: Comment on above: Expected: 12/02/2022, Expires: 3 Start: 11-18-2022 End: 01-18-2023 Calcium [Mass/volume] in Serum or Plasma CALCIUM TOTAL BLD Lab Routine Hypercalcemia Expected: 11/18/2022, Expires: 01/18/2023 [facility] Work Phone: Comment on above: Expected: 11/18/2022, Expires: 3 Start: 11-18-2022 End: 01-18-2023 Parathyrin.intact [Mass/volume] in Serum or Plasma PTH INTACT BLD Lab Routine Hypercalcemia Expected: 11/18/2022, Expires: 01/18/2023 [facility] Work Phone: Comment on above: Expected: 11/18/2022, Expires: 3 Start: 10-18-2022 Covid-19 Vaccine () Covid-19 Vaccine () [facility] Start: 09-06-2022 Adult depression screening assessment DEPRESSION SCREENING [facility] Start: 08-17-2022 End: 10-17-2022 Calcium [Mass/volume] in Serum or Plasma CALCIUM TOTAL BLD Lab Routine Hypercalcemia Expected: 08/17/2022, Expires: 10/17/2022 [facility] Work Phone: Comment on above: Expected: 08/17/2022, Expires: 3 Start: 08-17-2022 End: 10-17-2022 CBC W Auto Differential panel - Blood CBC + DIFF Lab Routine Thrombocytosis Expected: 08/17/2022, Expires: 10/17/2022 [facility] Work Phone: Comment on above: Expected: 08/17/2022, Expires: 3 Start: 08-17-2022 End: 10-17-2022 Hepatic function 2000 panel - Serum or Plasma HEPATIC FUNCTION PNL Lab Routine Elevated LFTs Expected: 08/17/2022, Expires: 10/17/2022 [facility] Work Phone: Comment on above: Expected: 08/17/2022, Expires: 3 Start: 07-04-2022 Adult depression screening assessment DEPRESSION SCREENING [facility] Start: 06-03-2022 End: 08-03-2022 Calcium [Mass/volume] in Serum or Plasma CALCIUM TOTAL BLD Lab Routine Hypercalcemia Expected: 06/03/2022, Expires: 08/03/2022 [facility] Work Phone: Comment on above: Expected: 06/03/2022, Expires: 3 Start: 06-03-2022 End: 08-03-2022 CBC W Auto Differential panel - Blood CBC + DIFF Lab Routine Thrombocytosis Expected: 06/03/2022, Expires: 08/03/2022 [facility] Work Phone: Comment on above: Expected: 06/03/2022, Expires: 3 Start: 06-03-2022 End: 08-03-2022 HEP ACUTE PANEL/RNA HEP ACUTE PANEL/RNA Lab Routine Elevated LFTs Expected: 06/03/2022, Expires: 08/03/2022 [facility] Work Phone: Comment on above: Expected: 06/03/2022, Expires: 3 Start: 06-03-2022 End: 08-03-2022 Hepatic function 2000 panel - Serum or Plasma HEPATIC FUNCTION PNL Lab Routine Elevated LFTs Expected: 06/03/2022, Expires: 08/03/2022 [facility] Work Phone: Comment on above: Expected: 06/03/2022, Expires: 3 Start: 06-03-2022 End: 08-03-2022 Parathyrin.intact [Mass/volume] in Serum or Plasma PTH INTACT BLD Lab Routine Hypercalcemia Expected: 06/03/2022, Expires: 08/03/2022 [facility] Work Phone: Comment on above: Expected: 06/03/2022, Expires: 3 Start: 05-08-2022 Creatinine measurement Creatinine monitoring [facility] Start: 05-08-2022 Potassium monitoring Potassium monitoring [facility] Start: 05-07-2022 Screening for Chlamydia trachomatis Chlamydia screen [facility] Start: 05-02-2022 Creatinine measurement Creatinine monitoring [facility] Start: 05-02-2022 Potassium monitoring Potassium monitoring [facility] Start: 01-02-2022 Creatinine measurement Creatinine monitoring [facility] Start: 01-02-2022 Potassium monitoring Potassium monitoring [facility] Start: 01-02-2022 Screening for Chlamydia trachomatis Chlamydia screen [facility] Start: 09-22-2021 Adult depression screening assessment DEPRESSION SCREENING [facility] Start: 09-22-2021 CHLAMYDIA SCREENING (18-24) CHLAMYDIA SCREENING (18-24) [facility] Comment on above: Postponed from 2020 (Declined at t his time) Start: 09-22-2021 COVID-19 VACCINE (#1) COVID-19 VACCINE (#1) [facility] Comment on above: Postponed from 07/22/2007 (Declined at t his time) Postponed from 01/20 (Declined at this time) Start: 09-22-2021 GC (GONORRHEA) SCREENING (18-24) GC (GONORRHEA) SCREENING (18-24) [facility] Comment on above: Postponed from 2020 (Declined at t his time) Start: 09-13-2021 End: 11-13-2021 CBC W Auto Differential panel - Blood CBC + DIFF Lab Routine Weight gain Screening for diabetes mellitus Expected: 09/13/2021, Expires: 11/13/2021 [facility] Work Phone: Comment on above: Expected: 09/13/2021, Expires: 2 Start: 09-13-2021 End: 11-13-2021 Comprehensive metabolic 2000 panel - Serum or Plasma COMP METABOLIC PANEL Lab Routine Screening for diabetes mellitus Expected: 09/13/2021, Expires: 11/13/2021 [facility] Work Phone: Comment on above: Expected: 09/13/2021, Expires: 2 Start: 09-13-2021 End: 11-13-2021 Hemoglobin A1c in Blood HGB A1C Lab Routine Screening for diabetes mellitus Expected: 09/13/2021, Expires: 11/13/2021 [facility] Work Phone: Comment on above: Expected: 09/13/2021, Expires: 2 Start: 09-13-2021 End: 11-13-2021 LIPID PANEL, NONFASTING LIPID PANEL, NONFASTING Lab Routine Encounter for lipid screening for cardiovascular disease Expected: 09/13/2021, Expires: 11/13/2021 [facility] Work Phone: Comment on above: Expected: 09/13/2021, Expires: 2 Start: 09-13-2021 End: 11-13-2021 Thyrotropin [Units/volume] in Serum or Plasma TSH BLD Lab Routine depression PANCHO (generalized anxiety disorder) Weight gain Expected: 09/13/2021, Expires: 11/13/2021 [facility] Work Phone: Comment on above: Expected: 09/13/2021, Expires: 2 Start: 10-18-2020 Influenza vaccination Flu vaccine (#1) [facility] Start: 2020 CHLAMYDIA SCREENING (18-24) CHLAMYDIA SCREENING (18-24) [facility] Start: 2020 GC (GONORRHEA) SCREENING (18-24) GC (GONORRHEA) SCREENING (18-24) [facility] Start: 2020 HEPATITIS C SCREENING HEPATITIS C SCREENING [facility] Start: 2020 HIV SCREENING HIV SCREENING [facility] Start: 2020 HIV screening HIV Screening [facility] Start: 2020 Screening for Chlamydia trachomatis Chlamydia Screening (18-24) [facility] Start: 2016 PEDS TO ADULT TRANSITION ANNUAL ASSESSMENT PEDS TO ADULT TRANSITION ANNUAL ASSESSMENT [facility] Start: 2014 Depression Screen Depression Screen [facility] Start: 2014 PEDS TO ADULT TRANSITION INITIAL DISCUSSION PEDS TO ADULT TRANSITION INITIAL DISCUSSION [facility] Start: 2013 HPV vaccine (1 - 2-dose series) HPV vaccine (1 - 2-dose series) [facility] Start: 07-22-2007 COVID-19 Vaccine (1) COVID-19 Vaccine (1) [facility] Start: 03-27-2004 Hepatitis B vaccine (3 of 3 - 3-dose primary series) Hepatitis B vaccine (3 of 3 - 3-dose primary series) [facility] Start: 07-22-2003 Hepatitis A vaccine (1 of 2 - 2-dose series) Hepatitis A vaccine (1 of 2 - 2-dose series) [facility] Start: 01-20-2003 COVID-19 VACCINE (#1) COVID-19 VACCINE (#1) [facility] Chlamydia trachomatis+Neisseria gonorrhoeae DNA [Presence] in Unspecified specimen by PARI with probe detection GONORRHEA/CHLAMYDIA NAAT Lab Routine Screen for STD (sexually transmitted disease) 2024 4:28 PM EDT [facility] Creatinine Clearance , Urine, 24 HR Creatinine Clearance, Urine, 24 HR Lab STAT 01/03/2021 2:29 PM EST [facility] Work Phone: End: 11-16-[address]23 CT BRAIN WO IVCON CT BRAIN WO IVCON Radiology Routine Pseudotumor Headache, unspecified headache type 1 Occurrences starting 10/17/2022 until 11/16/2023 [facility] Work Phone: Comment on above: 1 Occurrences starting 10/17/2022 until 11/16/2023 Culture, Blood 1 Culture, Blood 1 Microbiology STAT 05/07/2021 2:42 AM EDT [facility] Work Phone: Culture, Blood 2 Culture, Blood 2 Microbiology STAT 05/07/2021 2:42 AM EDT [facility] Work Phone: Culture, Fungus Culture, Fungus Microbiology STAT 05/07/2021 1:08 PM EDT [facility] Work [facility]: Culture, Vaginal Culture, Vagina l Microbiology STAT 05/07/2021 1:08 PM EDT [facility] Work Phone: HOME SLEEP APNEA JORGE T (HSAT) HOME SLEEP APNEA TEST (HSAT) Procedures Routine Pseudotumor cerebri 1 Occurrences starting 12/02/2022 [facility] Work Phone: Comment on above: 1 Occurrences starting 12/02/2022 Liver ultrasound attenuation by transient elastography DDI VIBRATION CONTROLLED TRANSIENT ELASTOGRAPHY (VCTE) Endoscopy Routine WHITNEY (nonalcoholic steatohepatitis) Ordered: 08/07/2024 [facility] Comment on above: Ordered: 08/07/2024 End: 01-01-2024 Mra head w/o contrst material MRV BRAIN WO IVCON Radiology Routine Pseudotumor cerebri 1 Occurrences starting 12/02/2022 until 01/01/2024 [facility] Work Phone: Comment on above: 1 Occurrences starting 12/02/2022 until 01/01/2024 End: 01-01-2024 Mri brain brain stem w/o contrast material MRI BRAIN WO IVCON Radiology Routine Pseudotumor cerebri 1 Occurrences starting 12/02/2022 until 01/01/2024 [facility] Work Phone: Comment on above: 1 Occurrences starting 12/02/2022 until 01/01/2024 Nonrebreather mask oxygen Nonrebreather mask oxygen Respiratory Care Routine As directed - RT (PRN) until discontinued starting 01/01/2021 [employer] Work Phone: Comment on above: As directed - RT (PRN) until discontinue d starting 01/01/2021 End: 01-03-2021 [facility] Work Phone: Comment on above: One Time for 1 Occurrences starting 12/18 until 01/03/2021 Oxygen therapy [Minimum Data Set] Initiate Oxygen Therapy Protocol Respiratory Care Routine Daily until discontinued starting 05/02/2021 [facility] Work [facility]: Comment on above: Daily until discontinued starting 2021 Oxygen therapy [Minimum Data Set] Initiate Oxygen Therapy Protocol Respiratory Care Routine As Needed until discontinued starting 05/07/2021 [employer] Work Phone: Comment on above: As Needed until discontinued starting Oxygen therapy [Minimum Data Set] Initiate Oxygen Therapy Protocol Respiratory Care Routine Daily until discontinued starting 05/07/2021 [employer] Work Phone: Comment on above: Daily until discontinued starting 2021 PAP TEST PAP TEST Lab Rodrigo lozada Encounter for gynecological examination (general) (routine) without abnormal findings Screening for cervical cancer Encounter for screening for human papillomavirus (HPV) Ordered: 2024 [facility] [employer] Work Phone: Comment on above: Ordered: 2024 Patient Education ED, Migraine (Classical ) [facility] Work Phone: Patient referral [facility] Work Phone: End: 01-03-2021 Protein, 24 Hr Urine [employer] Work Phone: Comment on above: One Time for 1 Occurrences starting 12/18 until 01/03/2021 End: 08-07-2025 Screening colonoscopy COLONOSCOPY SCREENING Endoscopy Routine Altered bowel habits Chronic constipation 1 Occurrences starting 08/07/2024 until 08/07/2025 [facility] Work Phone: Comment on above: 1 Occurrences starting 08/07/2024 until 08/07/2025 Spirometry panel Incentive nellie metry Respiratory Care Routine Every 2hr while awake until discontinued starting 05/02/2021 [employer] Work Phone: Comment on above: Every 2hr while awake until discontinued starting 05/02/2021 Spirometry panel Incentive nellie metry Respiratory Care Routine Every 2hr while awake until discontinued starting 05/07/2021 [employer] Work Phone: Comment on above: Every 2hr while awake until discontinued starting 05/07/2021 TRICHOMONAS VAGINALI S NAAT TRICHOMONAS VAGINALIS NAAT Lab Routine Screen for STD (sexually transmitted disease) 2024 4:28 PM EDT [facility] End: 06-06-2025 US Abdomen RUQ US ABD RIGHT UPPER QUADRANT Radiology Routine Elevated liver enzymes 1 Occurrences starting 05/07/2024 until 06/06/2025 [facility] Comment on above: 1 Occurrences starting 05/07/2024 until 06/06/2025 [facility] Immunizations Immunization Date Immunization Notes Care Provider [facility] 10-22-2024 Human Papillomavirus 9-valent vaccine Nurse Wsbecky Work Phone: [facility] 2024 Human Papillomavirus 9-valent vaccine Liza Camarillo DO Work Phone: [facility] 05-02-2021 diphtheria, tetanus toxoids and acellular pertussis vaccine, unspecified formulation Asia Atkinson MD Work Phone: [facility] Work Phone: 05-02-2021 measles, mumps and rubella virus vaccine Asia Atkinson MD Work Phone: [facility] Work Phone: 11-12-2019 meningococcal polysaccharide (groups A, C, Y and W-135) diphtheria toxoid conjugate vaccine (MCV4P) Lara Jimenez PA-C Work Phone: [facility] 10-03-2014 meningococcal polysaccharide (groups A, C, Y and W-135) diphtheria toxoid conjugate vaccine (MCV4P) Lara Jimenez PA-C Work Phone: [facility] 10-03-2014 tetanus toxoid, redu gabriella diphtheria toxoid, and acellular pertussis vaccine, adsorbed Lara Jimenez PA-C Work Phone: [facility] 08-03-2007 diphtheria, tetanus toxoids and acellular pertussis vaccine Lara MORALES-C Work Phone: [facility] 08-03-2007 measles, mumps and rubella virus vaccine Lara Tony MORALES-C Work Phone: [facility] Work Phone: 08-03-2007 poliovirus vaccine, inactivated Lara Tony MORALES-C Work Phone: [facility] 08-03-2007 varicella virus vaccine Stephanie gagnon Tony MORALES-C Work Phone: [facility] Work Phone: 01-31-2004 DTaP-hepatitis B and poliovirus vaccine Lara MORALES-C Work Phone: [facility] Work Phone: 01-31-2004 hepatitis B vaccine, pediatric or pediatric/adolescent dosage Lara MORALES-C Work Phone: [facility] Work Phone: 01-31-2004 poliovirus vaccine, inactivated [employer] MORALES-C Work Phone: [facility] Work Phone: 01-31-2004 varicella virus vaccine Stephanie gagnon Tony MORALES-C Work Phone: [facility] Work Phone: 09-27-2003 haemophilus influenz ae type b vaccine, HbOC conjugate Lara MORALES-C Work Phone: [facility] Work Phone: 09-27-2003 measles, mumps and rubella virus vaccine Lara MORALES-C Work Phone: [facility] Work Phone: 09-27-2003 pneumococcal conjuga te vaccine, 7 valent Lara MORALES-C Work Phone: [facility] Work Phone: 01-24-2003 DTaP-hepatitis B and poliovirus vaccine Lara MORALES-C Work Phone: [facility] Work Phone: 01-24-2003 haemophilus influenz ae type b vaccine, HbOC conjugate Lara Jimenez PA-C Work Phone: [facility] Work Phone: 01-24-2003 hepatitis B vaccine, pediatric or pediatric/adolescent dosage Lara Tony PA-C Work Phone: [facility] Work Phone: 01-24-2003 pneumococcal conjuga te vaccine, 7 valent Lara Tony PA-C Work Phone: [facility] Work Phone: 01-24-2003 poliovirus vaccine, inactivated Lara Tony PA-C Work Phone: [facility] Work Phone: 2002 diphtheria, tetanus toxoids and acellular pertussis vaccine Lara Tony PA-C Work Phone: [facility] Work Phone: 2002 haemophilus influenz ae type b vaccine, HbOC conjugate Lara Jimenez PA-C Work Phone: [facility] Work Phone: 2002 pneumococcal conjuga te vaccine, 7 valent [employer] Jimenez PA-C Work Phone: [facility] Work Phone: 2002 poliovirus vaccine, inactivated Lara Jimenez PA-C Work Phone: [facility] Work Phone: 2002 diphtheria, tetanus toxoids and acellular pertussis vaccine Lara Tony PA-C Work Phone: [facility] Work Phone: 2002 haemophilus influenz ae type b vaccine, HbOC conjugate Lara Jimenez PA-C Work Phone: [facility] Work Phone: 2002 pneumococcal conjuga te vaccine, 7 valent Lara Jimenez PA-C Work Phone: [facility] Work Phone: 2002 poliovirus vaccine, inactivated Lara Jimenez PA-C Work Phone: [facility] Work Phone: 2002 hepatitis B vaccine, pediatric or pediatric/adolescent dosage Lara Jimenez PA-C Work Phone: [facility] Work Phone: 2002 hepatitis B vaccine, pediatric or pediatric/adolescent dosage Lara Jimenez PA-C Work Phone: [facility] Work Phone: Payers Date Payer Category Payer Blue [facility] [id number] 2024 Unknown [id number] 2024 Private Health Insurance [id number] 2023 Self-pay [id number] 2023 Unknown MMO MMO SUPERMED PPO [id number] 2023-Present [phone] [address] [place] [address] PPO [id number] 2023 Unknown [id number] 2021 Medicaid MEDICAID [facility] MEDICAID [id number] 2021-Present [phone] [address] [place] [address] Medicaid [id number] 2021 Medicaid [id number] 2020 Private Health Insurance [id number] 2017 Private Health Insurance [employer] A ETNA CHOICE POS II [id number] 2017-Present [phone] [address] [place] [address] POS [id number] 2017 Private Health Insurance [id number] Medicaid [id number] Unknown ANTHEM [id number] Unknown [id number] Unknown [id number] Social History Date Type Detail Facility Start: 01-01-2021 End: 05-05-2024 Tobacco smoking status NHIS Never smoked tobacco [facility] Start: 01-02-2021 End: 05-07-2021 Alcohol intake Lifetime non-drinker (finding) [facility] Work Phone: Start: 01-01-2021 End: 04-26-2022 History SDOH Alcohol Frequency 1 [facility] Work Phone: Start: 08-14-2020 [facility] Work Phone: Start: 2002 Sex Assigned At Not on file S [facility] Work Phone: Exposure to SARS-CoV -2 (event) Yes [facility] Work [facility]: Start: 01-01-2021 End: 05-05-2024 Tobacco use and exposure Smokeless tobacco non-user [facility] Work Phone: Start: 04-02-2021 End: 09-13-2021 Exposure to SARS-CoV-2 (event) Not sure [facility] Start: 02-20-2021 End: 10-22-2024 Alcohol intake Current non-drinker of alcohol (finding) [facility] Start: 2002 Sex Assigned At Female C [facility] Work Phone: Start: 08-14-2021 End: 08-24-2021 Exposure to SARS-CoV-2 (event) Unable to assess [facility] Work Phone: Start: 09-06-2021 End: 04-26-2022 History SDOH Alcohol Frequency 2 [facility] Start: 09-06-2021 End: 04-26-2022 History SDOH Social Connections Phone 5 [facility] Start: 09-06-2021 End: 04-26-2022 History SDOH Social Connections Mormonism 3 [facility] Start: 09-06-2021 End: 04-26-2022 History SDOH Social Connections Living 8 [facility] Start: 04-26-2022 History SDOH Physica l Activity DPW 0 [facility] Start: 04-26-2022 History SDOH Stress 4 [facility] Start: 04-26-2022 End: 01-23-2023 History of Social function [facility] Start: 04-26-2022 End: 01-23-2023 Social connection and isolation panel [facility] Are you now , , , , never or living with a partner? Living with partner [facility] How often to you hav e a drink containing alcohol? Monthly or less [facility] How many standard drinks containing alcohol do you have on a typical day? 1 or 2 [facility] How often do you hav e 6 or more drinks on 1 occasion? Never [facility] How hard is it for y ou to pay for the very basics like food, housing, medical care, and heating Somewhat hard [facility] Start: 01-19-2012 Adult Depression Screening Assessment 6 [facility] Work Phone: Do you feel stress - tense, restless, nervous, or anxious, or unable to sleep at night because your mind is troubled all the time - these days [OSQ] Rather much [facility] (I/We) worried wheth er (my/our) food would run out before (I/we) got money to buy more. Sometimes true [facility] At any time in the past 12 months, were you homeless or living in detention [including now]? No [facility] Start: 11-12-2019 Gender identity Identifies as female gender (finding) [facility] Work Phone: Start: 07-26-2021 Sexual orientation Heterosexual (chloe figueroa) [facility] Start: 01-01-2021 [facility] Are you now , , , , never or living with a partner? [facility] How often to you hav e a drink containing alcohol? 2-4 times a month [facility] How often do you hav e 6 or more drinks on 1 occasion? Less than monthly [facility] How hard is it for y ou to pay for the very basics like food, housing, medical care, and heating Hard [facility] Do you feel stress - tense, restless, nervous, or anxious, or unable to sleep at night because your mind is troubled all the time - these days [OSQ] Very much [facility] Do you feel stress - tense, restless, nervous, or anxious, or unable to sleep at night because your mind is troubled all the time - these days [OSQ] To some extent [facility] (I/We) worried wheth er (my/our) food would run out before (I/we) got money to buy more. Often true [facility] NEGATED: Highlighted rowStart: HERMINIOF History of tobacco use Passive smoker [facility] Functional Status Date Assessment Result Facility 09-21-2024 Total score [AUDIT-C] 1 09/22/19 5:53 PM EDT User, Cameliat [facility] 09-21-2024 How often to you hav e a drink containing alcohol? Monthly or less 09/21/2024 5:53 PM EDT User, Mychart Monthly or less [facility] 09-21-[address] inks containing alcohol do you have on a typical day? 1 or 2 09/21/2024 5:53 PM EDT User, Cameliat 1 or 2 [facility] 09-21-2024 How often do you hav e 6 or more drinks on 1 occasion? Never 09/21/2024 5:53 PM EDT User, Cameliat Never [facility] 06-22-2014 Are you deaf, or do you have serious difficulty hearing No 06/22/2014 12:49 PM EDT Megan Olivas Ma [facility] 06-22-2014 Are you blind, or do you have serious difficulty seeing, even when wearing glasses No 06/22/2014 12:49 PM EDT Megan Olivas Ma [facility] 06-22-2014 Do you have serious difficulty walking or climbing stairs No 06/22/2014 12:49 PM EDT Megan Olivas Ma [facility] 06-22-2014 Do you have difficul ty dressing or bathing No 06/22/2014 12:49 PM EDT Megan Olivas Ma [facility] Mental Status Date Assessment Result Facility 08-11-2024 Cognitive function Level Of Cons ciousness Awake;Alert;Appropriate [facility] Work Phone: 06-22-2014 Because of a physica l, mental, or emotional condition, do you have serious difficulty concentrating, remembering, or making decisions No 06/22/2014 12:49 PM EDT Megan Olivas Ma [facility] Clinical Notes 01-02-2021 to 12-22-2024 Telephone Encounter - Anuradha Bowling MA - 10/25/2024 11:35 AM EDTTelephone Encounter - Anuradha Bowling MA - 10/25/2024 11:35 AM Liza Zuniga DO - 10/22/2024 4:10 PM EDTPatient Instructions Note Date & Type Note Facility 12-22-2024 Note HNO ID: [id number] Author: PARISA JASSO LPN Service: ? Author Type: Licensed Nurse Type: Progress Notes Filed: 12/22/2024 08:41 Note Text: Labs ordered by PCP. Pt has appointment 12/29/24 with PCP Scan on 12/22/2024 5:16 AM by Provider, External, PAVanessaC: Hematology [facility] 10-25-2024 Telephone encounter Note Labs ordered for Sept by Dr. Grimm faxed to [phone] ATTN: Shaheed Jackson. Pt notified via [employer]. [facility] 10-25-2024 Miscellaneous Notes Labs ordered for Sept by Dr. Grimm faxed to [phone] ATTN: Shaheed Jackson. Pt notified via [employer]. documented in this encounter [facility] 10-22-2024 History of Presen t illness Narrative Hematologic problem(s): 1) Leukocytosis and thrombocytosis. HPI: The patient is a 24-year-old female with past medical history as outlined below. Has a 2-year history of leukocytosis/neutrophilia and thrombocytosis. Had not previously had iron studies. Regular menses. Had HMB before her daughter's about 3 years ago. 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 Less heavy over the last year. Didn't breast feed. Recently had an IV vitamin and mineral infusion--delayed menses about 2 weeks. Not a blood donor. Very consistent with CPAP. Has been using nearly a year. Topomax helping with frequent HAs. Recently saw neurology for this. Had MRI scheduled. Tries to take Excedrin sparingly. Works at [employer] in [place]. All four wisdom teeth extracted yesterday. Needed for about a year--no symptoms. Has not previously taken oral iron. Presents for ongoing hematologic management. Interim history: No complaints today. Has been getting and supplemental iron via multivitamin with iron. PAST MEDICAL HISTORY Diagnosis Date Attention deficit hyperactivity disorder (ADHD), combined type 12/14/2014 Class 2 obesity due to excess calories without serious comorbidity with body mass index (BMI) of 37.0 to 37.9 in adult Elevated hemoglobin A1c 05/03/2022 PANCHO (generalized anxiety disorder) 05/02/2022 Hyperlipidemia, mixed 05/03/2022 Insulin resistance Major depressive disorder with single episode 05/02/2022 Oppositional defiant disorder 11/07/2007 JUAN M (obstructive sleep apnea) 05/25/2024 Seeing [facility] Sleep Med. 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 Polycystic ovaries Prediabetes Pseudotumor cerebri 07/04/[address] Andrew Seasonal allergies Thrombocytosis 05/03/2022 Chronic since 2003 (500-550) Vitamin D deficiency 05/25/2024 PAST SURGICAL HISTORY Procedure Laterality Date SECTION HX 05/02/2021 NONE PAST SURGICAL HISTORY OF 07/20/2024 [place] teeth extraction topiramate (TOPAMAX) 100 mg tablet Take 1 tablet by mouth daily at bedtime. guanfacine HCl (INTUNIV ER ORAL) Take 1 tablet by mouth daily at bedtime. atorvastatin (LIPITOR) 20 mg tablet Take 1 tablet by mouth once daily. PROZAC 20 mg capsule Take 40 mg by mouth once daily. hydrOXYzine HCl (ATARAX) 25 mg tablet Take 25 mg by mouth three times a day as needed. buPROPion XL (WELLBUTRIN XL) 300 mg 24 hr tablet Take 1 tablet by mouth once daily. Per Psych, Tranquility cholecalciferol, Vitamin D3, (VITAMIN D3) 1,250 mcg (50,000 unit) cap capsule Take 1 capsule by mouth one time a week. aspirin/acetaminophen/caffeine (EXCEDRIN MIGRAINE ORAL) Take by mouth as needed. Drug free headache Care L.crisshiv,peg,francis,rhamn (AZO VAGINAL HEALTH PROBIOTIC ORAL) Take 1 capsule by mouth once daily. Lacto no.76/Bifido/FOS/larch (WOMEN'S PROBIOTIC ORAL) Take 1 capsule by mouth once daily. mv-min/iron/folic/calcium/vitK (WOMEN'S MULTIVITAMIN ORAL) Take 1 tablet by mouth once daily. propranolol (INDERAL) 10 mg tablet Take 10 mg by mouth. As needed flaxseed oil (OMEGA 3 ORAL) Take 2 capsules by mouth once daily. CPAP/BIPAP/OTHER autoCPAP 8-10 cmH2O [facility] acetaminophen 325 mg cap Take by mouth as needed. cetirizine (ZYRTEC) 10 mg tablet Take 1 tablet by mouth once daily. Ibuprofen 200 mg cap Take by mouth every 4 hours as needed. FOR PAIN. ALLERGIES No Known Allergies Social History Tobacco Use Smoking status: Never Passive exposure: Never Smokeless tobacco: Never Vaping Use Vaping status: Never Used Substance Use Topics Alcohol use: No Drug use: No FAMILY HISTORY Problem Relation Age of Onset other (Other) Mother restless leg Lipids Father Diabetes Maternal Grandmother Hypertension Maternal Grandmother other (sleep apnea) Maternal Grandmother Hypertension Maternal Grandfather other (sleep apnea) Maternal Grandfather Skin Cancer Maternal Grandfather Colon Cancer Paternal Grandmother Lipids Paternal Grandfather Diabetes Paternal Grandfather REVIEW OF SYSTEMS: Constitutional: No episodes of fever and night sweats. Neuro: No vertigo, dizziness and imbalance. No symptoms of neuropathy. HEENT: No recent change in voice, vision or hearing. Resp: No cough, wheeze and hemoptysis. No shortness of breath at rest. No NGUYEN. CVS: No exertional chest pain, PND, orthopnea and LE edema. GI: No reflux, n/v, change in bowel habits (alternating diarrhea and constipation) or abdominal pain. : No dysuria or gross hematuria. Endo: No hot flashes. Musculoskeletal: No bone, back, joint and muscular pain. Derm: No current rash. Heme: No unusual bleeding and unexplained bruising. Psych: Normal mood. PHYSICAL EXAM: Vitals: Blood pressure 112/76, pulse 95, temperature 36.7 C (98 F), temperature source Temporal, weight 111.6 kg (246 lb), last menstrual period 06/26/2024, SpO2 98%. Well-appearing and in no acute distress. EYES: Sclerae are anicteric bilaterally. CARDIOVASCULAR: Rhythm is regular. ABDOMEN: The abdomen is nondistended. No splenomegaly or hepatomegaly. No tenderness. Extremities: No swelling or edema. SKIN: No jaundice or rash. No petechiae. ASSESSMENT/PLAN: (D72.829) Leukocytosis, unspecified type (D75.839) Thrombocytosis Assessment: - 2-year history of leukocytosis and thrombocytosis. Previous history of heavy menses. Has not had iron checked previously. I explained that thrombocytosis likely related to iron deficiency and possible underlying inflammation. - Reviewed labs. Not clear that she is absorbing iron very well. We discussed a trial of measuring fasting serum iron and rechecking 1 to 2 hours after taking oral iron supplement. If absorbs well, then she will continue on oral iron. If not then parenteral iron indicated. Plan: - Fasting and 1 to 2-hour iron saturation. Portions of this documentation were copied and pasted from my previous office visit note dated 2024 in order to provide a cohesive continuity of the history. The note has been reviewed and edited and updated as necessary. I spent a total of 20 minutes on the date of the service which included preparing to see the patient, [id number] patient care, counseling and educating the patient/family/caregiver, communicating with other HCPs (not separately reported), and communicating results to the patient/family/caregiver. Liza Camarillo DO documented in this encounter [facility] 10-22-2024 Note HNO ID: [id number] Author: LIZA CAMARILLO DO Service: ? Author Type: Physician Type: Progress Notes Filed: 10/24/2024 09:35 Note Text: Hematologic problem(s): 1) Leukocytosis and thrombocytosis. HPI: The patient is a 24-year-old female with past medical history as outlined below. Has a 2-year history of leukocytosis/neutrophilia and thrombocytosis. Had not previously had iron studies. Regular menses. Had HMB before her daughter's about 3 years ago. 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 Less heavy over the last year. Didn't breast feed. Recently had an IV vitamin and mineral infusion--delayed menses about 2 weeks. Not a blood donor. Very consistent with CPAP. Has been using nearly a year. Topomax helping with frequent HAs. Recently saw neurology for this. Had MRI scheduled. Tries to take Excedrin sparingly. Works at [employer] in [place]. All four wisdom teeth extracted yesterday. Needed for about a year--no symptoms. Has not previously taken oral iron. Presents for ongoing hematologic management. Interim history: No complaints today. Has been getting and supplemental iron via multivitamin with iron. PAST MEDICAL HISTORY Diagnosis Date Attention deficit hyperactivity disorder (ADHD), combined type 12/14/2014 Class 2 obesity due to excess calories without serious comorbidity with body mass index (BMI) of 37.0 to 37.9 in adult Elevated hemoglobin A1c 05/03/2022 PANCHO (generalized anxiety disorder) 05/02/2022 Hyperlipidemia, mixed 05/03/2022 Insulin resistance Major depressive disorder with single episode 05/02/2022 Oppositional defiant disorder 11/07/2007 JUAN M (obstructive sleep apnea) 05/25/2024 Seeing [facility] Sleep Med. 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 Polycystic ovaries Prediabetes Pseudotumor cerebri 07/04/[address] Andrew Seasonal allergies Thrombocytosis 05/03/2022 Chronic since 2003 (500-550) Vitamin D deficiency 05/25/2024 PAST SURGICAL HISTORY Procedure Laterality Date SECTION HX 05/02/2021 NONE PAST SURGICAL HISTORY OF 07/20/2024 [place] teeth extraction topiramate (TOPAMAX) 100 mg tablet Take 1 tablet by mouth daily at bedtime. guanfacine HCl (INTUNIV ER ORAL) Take 1 tablet by mouth daily at bedtime. atorvastatin (LIPITOR) 20 mg tablet Take 1 tablet by mouth once daily. PROZAC 20 mg capsule Take 40 mg by mouth once daily. hydrOXYzine HCl (ATARAX) 25 mg tablet Take 25 mg by mouth three times a day as needed. buPROPion XL (WELLBUTRIN XL) 300 mg 24 hr tablet Take 1 tablet by mouth once daily. Per Psych, Tranquility cholecalciferol, Vitamin D3, (VITAMIN D3) 1,250 mcg (50,000 unit) cap capsule Take 1 capsule by mouth one time a week. aspirin/acetaminophen/caffeine (EXCEDRIN MIGRAINE ORAL) Take by mouth as needed. Drug free headache Care L.giselle,peg,francis,rhamn (AZO VAGINAL HEALTH PROBIOTIC ORAL) Take 1 capsule by mouth once daily. Lacto no.76/Bifido/FOS/larch (WOMEN'S PROBIOTIC ORAL) Take 1 capsule by mouth once daily. mv-min/iron/folic/calcium/vitK (WOMEN'S MULTIVITAMIN ORAL) Take 1 tablet by mouth once daily. propranolol (INDERAL) 10 mg tablet Take 10 mg by mouth. As needed flaxseed oil (OMEGA 3 ORAL) Take 2 capsules by mouth once daily. CPAP/BIPAP/OTHER autoCPAP 8-10 cmH2O [facility] acetaminophen 325 mg cap Take by mouth as needed. cetirizine (ZYRTEC) 10 mg tablet Take 1 tablet by mouth once daily. Ibuprofen 200 mg cap Take by mouth every 4 hours as needed. FOR PAIN. ALLERGIES No Known Allergies Social History Tobacco Use Smoking status: Never Passive exposure: Never Smokeless tobacco: Never Vaping Use Vaping status: Never Used Substance Use Topics Alcohol use: No Drug use: No FAMILY HISTORY Problem Relation Age of Onset other (Other) Mother restless leg Lipids Father Diabetes Maternal Grandmother Hypertension Maternal Grandmother other (sleep apnea) Maternal Grandmother Hypertension Maternal Grandfather other (sleep apnea) Maternal Grandfather Skin Cancer Maternal Grandfather Colon Cancer Paternal Grandmother Lipids Paternal Grandfather Diabetes Paternal Grandfather REVIEW OF SYSTEMS: Constitutional: No episodes of fever and night sweats. Neuro: No vertigo, dizziness and imbalance. No symptoms of neuropathy. HEENT: No recent change in voice, vision or hearing. Resp: No cough, wheeze and hemoptysis. No shortness of breath at rest. No NGUYEN. CVS: No exertional chest pain, PND, orthopnea and LE edema. GI: No reflux, n/v, change in bowel habits (alternating diarrhea and constipation) or abdominal pain. : No dysuria or gross hematuria. Endo: No hot flashes. Musculoskeletal: No bone, back, joint and muscular pain. Derm: No current rash. Heme: No unusual bleeding and unexplained bruising. Psych: Normal mood. PHYSICAL EXAM: Vitals: Blood pressure 112/76, pulse 95, temperature 36.7 ?C (98 ?F), tem (more content not included)... [facility] 10-22-2024 Note HNO ID: [id number] Author: CROW MAURO LPN Service: ? Author Type: Licensed Nurse Type: Progress Notes Filed: 11/01/2024 09:14 Note Text: Patient ID with two (2) identifiers verified by: Crow Mauro LPN Allergies reviewed and updated: Yes Current pain intensity is 0 on a 0-10 pain scale. Any concerns about safety in the home/falls: Not at risk for falls The patient is here for an injection of Gardasil. Dose: 0.5 ml Route: Intramuscular Given without incident. Site: right deltoid Dr. Boothe in office at time of injection. [facility] 10-22-2024 History of Presen t illness Narrative Patient ID with two (2) identifiers verified by: Crow Mauro LPN Allergies reviewed and updated: Yes Current pain intensity is 0 on a 0-10 pain scale. Any concerns about safety in the home/falls: Not at risk for falls The patient is here for an injection of Gardasil. Dose: 0.5 ml Route: Intramuscular Given without incident. Site: right deltoid documented in this encounter [facility] 09-02-2024 Instructions Soto Palacios APRN.CNP - 09/02/2024 3:36 PM EDT Prevention therapy: Continue Topamax 100 mg at bedtime Follow up in 3 months documented in this encounter [facility] 09-02-2024 History of Presen t illness Narrative Images from the original note were not included. [facility] Follow Up / Established Virtual Visit I have communicated my name and active licensure. The patient's identity and physical location were verified at the time of this visit. 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 I received consent from the patient to perform the visit as a virtual encounter. Individuals who were included in, or assisted with the encounter were: Shaheed Jackson Soto Palacios APRN.CRITICAL CARE EDUCATOR Chief Complaint/Issues: Shaheed Jackson is a 24 year old female seen in the [facility] for: Migraines Most Recent Neurological Assessment and Plan: Last Filed Values Date of Most Recent Assessment and Plan 05/05/24 Specialty General Neurology Assessment Shaheed Jackson is a 23 year old female with history of pseudotumor cerebri, anxiety depression, hyperlipidemia. Since her last visit, she reports daily headaches. She has started back on Excedrin, she is taking this daily. Headaches began to become daily again in February. Headache is located in the parietal and occipital region bilaterally. Feels like pressure and pulsating. Reports Excedrin may bring it down, tylenol is ineffective. Headaches are daily, and last most of the day. Pain is rated 7-8/10. Excedrin decreases pain to 2-3/10. Notes associated nausea, no other migrainous features. She also reports she and her are holding off on or now. She does report headaches are positional, worsened when laying flat. . Headaches not worsened with activity. Denies vision changes. She does have an appointment to have her eye exam in May. States the headaches do feel like they did in the past, when she had OIH. Denies vision changes. Neurological examination is unremarkable. Differential diagnoses include IIH vs New Daily persistent Headaches. Due to positional headaches, will obtain MRI, MRA, MRV brain to assess for IIH. Will restart Topamax 25 mg at bedtime for headache prevention. Medrol dose back to break the headache cycle. She will see her senior financial reporting analyst in May. Can continue Excedrin for abortive therapy, however did discuss limiting to twice a week. Discussed plan with patient. All questions answered. Follow up in 8 weeks. Plan 1. Start Topamax 25 mg at bedtime for headache prevention 2. Can continue Excedrin, but limit to 2 times a week 3. Medrol dose pack to break headache cycle 4. MRI Brain 5. MRA Brain 6. MRV Brain 7. Potassium level 2 weeks after starting Topamax 8. Will see senior financial reporting analyst in May 9. Follow up in 8 weeks or sooner if symptoms persist HPI/Interval History: Since her last visit, Shaheed states she has been doing very well. She has only had 2 migraines within the last few months. She is currently taking Topamax 100 mg at bedtime, and she believes this is very effective. Her MRI brain, MRA, and MRV brain were unremarkable. Her potassium level was within normal limits She was seen by ophthalmology and reports she had a normal examination. She does not one episode at the end of July where she had a bad headache. She went to the emergency room at the time.She underwent a CT head, which was negative for acute process. She states only experiencing one migraine every few weeks at this time. Previous/Current Headache treatment Preventative: Effexor Lexapro Topamax welbutrin Rescue: Tylenol Iboprofen Excedrin Diamox 500 BID General Examination: General Exam Neurological Exam Assessment & Plan 09/02/2024 - General Neurology, Soto Palacios, MATY.CRITICAL CARE EDUCATOR ASSESSMENT Shaheed Jackson is a 24 year old female with history of pseudotumor cerebri, anxiety depression, hyperlipidemia. She is here today for follow up regarding headaches. (G43.009) Migraine without aura and without status migrainosus, not intractable (primary encounter diagnosis) - Shaheed reports significant improvement in migraine frequency since her last visit, with only two migraines over the past few months. - Currently experiencing one migraine every few weeks. - Topamax 100 mg nightly appears effective and well-tolerated. - CT head (ER visit, July): Negative for acute pathology. - MRI brain, MRA, and MRV: Unremarkable. - Ophthalmology evaluation: Normal. - Potassium level: Within normal limits. PLAN 1. Prevention therapy: Continue Topamax 100 mg at bedtime 2. Follow up in 3 months No diagnosis found. No follow-ups on file. === Data Review Objective Current Outpatient Medications Medication Sig guanfacine HCl (INTUNIV ER ORAL) Take 1 tablet by mouth daily at bedtime. atorvastatin (LIPITOR) 20 mg tablet Take 1 tablet by mouth once daily. PROZAC 20 mg capsule Take 40 mg by mouth once daily. hydrOXYzine HCl (ATARAX) 25 mg tablet Take 25 mg by mouth three times a day as needed. topiramate (TOPAMAX) 100 mg tablet Take 1 tablet by mouth daily at bedtime. buPROPion XL (WELLBUTRIN XL) 300 mg 24 hr tablet Take 1 tablet by mouth once daily. Per Psych, Tranquility cholecalciferol, Vitamin D3, (VITAMIN D3) 1,250 mcg (50,000 unit) cap capsule Take 1 capsule by mouth one time a week. aspirin/acetaminophen/caffeine (EXCEDRIN MIGRAINE ORAL) Take by mouth as needed. Drug free headache Care L.crisgaylat,peg,francis,rhamn (AZO VAGINAL HEALTH PROBIOTIC ORAL) Take 1 capsule by mouth once daily. Lacto no.76/Bifido/FOS/larch (WOMEN'S PROBIOTIC ORAL) Take 1 capsule by mouth once daily. mv-min/iron/folic/calcium/vitK (WOMEN'S MULTIVITAMIN ORAL) Take 1 tablet by mouth once daily. propranolol (INDERAL) 10 mg tablet Take 10 mg by mouth. As needed flaxseed oil (OMEGA 3 ORAL) Take 2 capsules by mouth once daily. CPAP/BIPAP/OTHER autoCPAP 8-10 cmH2O [facility] acetaminophen 325 mg cap Take by mouth as needed. cetirizine (ZYRTEC) 10 mg tablet Take 1 tablet by mouth once daily. Ibuprofen 200 mg cap Take by mouth every 4 hours as needed. FOR PAIN. No current facility-administered medications for this visit. ACTIVE PROBLEM LIST Oppositional Defiant Disorder Attention Deficit Hyperactivity Disorder (Adhd), Combined Type Paradoxical Insomnia Class 2 Obesity Due to Excess Calories Without Serious Comorbidity With Body Mass Index (Bmi) of 37.0 to 37.9 in Adult Pseudotumor Cerebri Major Depressive Disorder With Single Episode Pancho (Generalized Anxiety Disorder) Elevated Hemoglobin A1c Hyperlipidemia, Mixed Hypercalcemia Elevated Lfts Thrombocytosis Whitney (Nonalcoholic Steatohepatitis) Vitamin D Deficiency Juan M (Obstructive Sleep Apnea) Medication Management Elevated Bp Without Diagnosis of Hypertension Desire for Abnormal Endometrial Ultrasound PAST MEDICAL HISTORY Diagnosis Date Attention deficit hyperactivity disorder (ADHD), combined type 12/14/2014 Class 2 obesity due to excess calories without serious comorbidity with body mass index (BMI) of 37.0 to 37.9 in adult Elevated hemoglobin A1c 05/03/2022 PANCHO (generalized anxiety disorder) 05/02/2022 Hyperlipidemia, mixed 05/03/2022 Insulin resistance Major depressive disorder with single episode 05/02/2022 Oppositional defiant disorder 11/07/2007 JUAN M (obstructive sleep apnea) 05/25/2024 Seeing [facility] Sleep Med. 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 Polycystic ovaries Prediabetes Pseudotumor cerebri 07/04/[address] Andrew Seasonal allergies Thrombocytosis 05/03/2022 Chronic since 2003 (500-550) Vitamin D deficiency 05/25/2024 PAST SURGICAL HISTORY Procedure Laterality Date SECTION HX 05/02/2021 NONE PAST SURGICAL HISTORY OF 07/20/2024 [place] teeth extraction Social History Tobacco Use Smoking status: Never Passive exposure: Never Smokeless tobacco: Never Vaping Use Vaping status: Never Used Substance Use Topics Alcohol use: No Drug use: No FAMILY HISTORY Problem Relation Age of Onset other (Other) Mother restless leg Lipids Father Diabetes Maternal Grandmother Hypertension Maternal Grandmother other (sleep apnea) Maternal Grandmother Hypertension Maternal Grandfather other (sleep apnea) Maternal Grandfather Skin Cancer Maternal Grandfather Colon Cancer Paternal Grandmother Lipids Paternal Grandfather Diabetes Paternal Grandfather Review of Systems Lab and Test Review: Results for orders placed or performed in visit on 08/07/24 THYROID STIMULATING HORMONE Result Value Ref Range TSH 0.908 0.270 - 4.200 mIU/L PROLACTIN Result Value Ref Range Prolactin 13.4 4.4 - 33.8 ng/mL DHEA-S BLD Result Value Ref Range DHEA-S 135.2 (L) 148.0 - 407.0 ug/dL TESTOSTERONE, TOTAL BY IMMUNOASSAY (ADULT MALES, OR INDIVIDUALS ON TESTOSTERONE THERAPY) Result Value Ref Range Testosterone 29 <40 ng/dL HYDROXYPROGESTERONE-17 Result Value Ref Range HYDROXYPROGESTERONE 52.79 <=206.00 ng/dL PROGESTERONE Result Value Ref Range Progesterone <0.2 See comment ng/mL FOLLICLE STIMULATING HORMONE Result Value Ref Range FSH 6.0 See comment mIU/mL LUTEINIZING HORMONE Result Value Ref Range LH 12.0 See comment mIU/mL HEMOGLOBIN A1C Result Value Ref Range Hemoglobin A1C 5.9 (H) 4.3 - 5.6 % Estimated Average Glucose 123 mg/dL INSULIN, TOTAL, SERUM Result Value Ref Range Insulin, Total 62.9 (H) 2.6 - 24.9 uU/mL GLUCOSE, FASTING Result Value Ref Range Glucose, Fasting 98 74 - 99 mg/dL COMPREHENSIVE METABOLIC PANEL Result Value Ref Range Protein, Total 7.8 6.3 - 8.0 g/dL Albumin 4.6 3.9 - 4.9 g/dL Calcium, Total 10.3 (H) 8.5 - 10.2 mg/dL Bilirubin, Total 0.3 0.2 - 1.3 mg/dL Alkaline Phosphatase 46 34 - 123 U/L AST 30 13 - 35 U/L ALT 33 7 - 38 U/L Glucose 87 74 - 99 mg/dL BUN 11 7 - 21 mg/dL Creatinine 0.62 0.58 - 0.96 mg/dL Sodium 139 136 - 144 mmol/L Potassium 4.2 3.7 - 5.1 mmol/L Chloride 104 98 - 107 mmol/L CO2 20 (L) 22 - 30 mmol/L Anion Gap 15 8 - 15 mmol/L Estimated Glomerular Filtration Rate 129 >=60 mL/min/1.73m VITAMIN B12 Result Value Ref Range Vitamin B12 901 232 - 1,245 pg/mL MRI BRAIN WO/W IVCON Exam End: 2024 3:10 PM (Final result) Impression: IMPRESSION: No acute findings. No acute infarction, intracranial hemorrhage, intracranial mass lesion or abnormal intracranial enhancement. ... MRI BRAIN WO IVCON Exam End: 12/30/2022 10:38 AM (Final result) Impression: IMPRESSION: No acute intracranial abnormality. Gross brain volume and morphology is within expected limits for age. ... MRA BRAIN WO IVCON Exam End: 2024 3:10 PM (Final result) Impression: IMPRESSION: No acute findings. No acute infarction, intracranial hemorrhage, intracranial mass lesion or abnormal intracranial enhancement. No evidence of hemodynamically significant stenosis, intraluminal filling defect, abrupt vessel occlusion, aneurysm or vascular malformation in the intracranial arterial vasculature. No evidence of dural venous sinus thrombosis. Business Information Analyst: [facility] Transcribe Date/Time: 2024 3:18P Dictated by : KASANDRA HASSAN MD This examination was interpreted and the report reviewed and electronically signed by: KASANDRA HASSAN MD on 2024 3:41PM EST MRA BRAIN WO/W IVCON Collected: 01/02/2021 5:27 PM (Final result) Outside Data/Labs: Subjective Patient-Entered Data: PROMIS-10 08/03/2024 05/04/2024 PROMIS 10 Health, in general Fair Fair Quality of life, in general Good Good Physical health, in general Poor Poor Mental health, in general Good Poor Social activities satisfaction Good Poor Performing ADL's Completely Completely Social role satisfaction Good Poor Pain, on average 0 - No Pain 7 Fatigue, on average Mild Severe Emotional problems Sometimes Always PHYSICAL Score 47.7 (Good) 34.9 (Poor) MENTAL Score 43.5 (Good) 28.4 (Poor) PHQ-9 06/24/2024 05/04/2024 PHQ-9 All Questions Little interest or pleasure in doing things: 2 3 Feeling down, depressed, or hopeless: 2 3 Trouble falling or staying asleep, or sleeping too much 1 3 Feeling tired or having little energy 2 3 Poor appetite or overeating 1 3 Feeling bad about yourself - or that you are a failure or have let yourself or your family down 2 3 Trouble concentrating on things, such as reading the newspaper or watching television 3 3 Moving or speaking so slowly that other people could have noticed. Or the opposite - being so fidgety or restless that you have been moving around a lot more than usual 1 2 Thoughts that you would be better off , or of hurting yourself in some way 0 0 PHQ-9 Score 14 23 (0-4) minimal depression (5-9) mild depression (10-14) moderate depression (15-19) moderately severe depression (20-27) severe depression Sleep 11/14/2022 -- Snore Loudly No Tired, fatigued or sleepy in daytime Yes Stop breathing or choking/gasping during sleep No High blood pressure No Probability of moderate-severe sleep apnea (%) SAPS V2 6 (Sleep study not recommended) 05/26/2023 12/26/2022 Insomnia Severity Index Difficulty falling asleep 3 2 Difficulty staying asleep 3 2 Problem waking up too early 1 2 Satisfied/dissatisfied with current sleep pattern 4 4 Sleep interferes with daily functions 4 4 Sleep problems noticeable to others 4 2 Worried/distressed about current sleep problems 4 3 Score 23 19 19 Multiple values from one day are sorted in reverse-chronological order I spent a total of 15 minutes on the date of the service which included preparing to see the patient, [id number] patient care, completing clinical documentation, obtaining and/or reviewing separately obtained history, performing a medically appropriate examination, counseling and educating the patient/family/caregiver, and ordering medications, tests, or procedures. DIANE Presley APRN.CNP [facility] General Neurology [address] [place] [address] Appointment: [phone] In regards to blood work, testing, and radiology reports these are released automatically to the patients. We do not comment on most testing on mychart in a message or commentary unless there is a concern. You will not receive a message from me of the result unless there is a specific concern. Make sure to check your my chart email or larisa. My impression and recommendations were discussed with the patient and they were provided with a detailed after summary visit highlighting such. Patient verbalizes understanding and I have addressed concerns and questions at this visit. Reassurance provided. Medication side effects discussed as applicable. . 1. This office note has been dictated and may contain minor typographic errors that escaped review. 2. The nursing staff and medical assistants are a major part of YOUR TREATMENT TEAM and will be handling your phone calls and inquiries, if any. Unless explicitly told otherwise at the time of your office visit, your study results and ensuing treatment plans will be discussed during your follow-up appointment. If you do not have a follow-up appointment and wish to discuss any issues directly with me, please feel free to obtain one. 3. It is my practice to not fill disability or any other insurance-related forms/documention. All of the office notes, study results, and other pertinent documentation generated as part of your evaluation will be available to you and to your Primary Care Physician (PCP). Use of this material to complete such forms will be at the discretion of your PCP/referring physician documented in this encounter [facility] 09-02-2024 Note HNO ID: [id number] Author: SOTO PALACIOS APRN.CNP Service: ? Author Type: Nurse Practitioner Type: Progress Notes Filed: 09/02/2024 15:48 Note Text: [facility] Follow Up / Established Virtual Visit I have communicated my name and active licensure. The patient's identity and physical location were verified at the time of this visit. 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 I received consent from the patient to perform the visit as a virtual encounter. Individuals who were included in, or assisted with the encounter were: Shaheed Jackson Soto Palacios APRN.CRITICAL CARE EDUCATOR Chief Complaint/Issues: Shahede Jackson is a 24 year old female seen in the [facility] for: Migraines Most Recent Neurological Assessment and Plan: Last Filed Values Date of Most Recent Assessment and Plan 05/05/24 Specialty General Neurology Assessment Shaheed Jackson is a 23 year old female with history of pseudotumor cerebri, anxiety depression, hyperlipidemia. Since her last visit, she reports daily headaches. She has started back on Excedrin, she is taking this daily. Headaches began to become daily again in February. Headache is located in the parietal and occipital region bilaterally. Feels like pressure and pulsating. Reports Excedrin may bring it down, tylenol is ineffective. Headaches are daily, and last most of the day. Pain is rated 7-8/10. Excedrin decreases pain to 2-3/10. Notes associated nausea, no other migrainous features. She also reports she and her are holding off on or now. She does report headaches are positional, worsened when laying flat. . Headaches not worsened with activity. Denies vision changes. She does have an appointment to have her eye exam in May. States the headaches do feel like they did in the past, when she had OIH. Denies vision changes. Neurological examination is unremarkable. Differential diagnoses include IIH vs New Daily persistent Headaches. Due to positional headaches, will obtain MRI, MRA, MRV brain to assess for IIH. Will restart Topamax 25 mg at bedtime for headache prevention. Medrol dose back to break the headache cycle. She will see her senior financial reporting analyst in May. Can continue Excedrin for abortive therapy, however did discuss limiting to twice a week. Discussed plan with patient. All questions answered. Follow up in 8 weeks. Plan 1. Start Topamax 25 mg at bedtime for headache prevention 2. Can continue Excedrin, but limit to 2 times a week 3. Medrol dose pack to break headache cycle 4. MRI Brain 5. MRA Brain 6. MRV Brain 7. Potassium level 2 weeks after starting Topamax 8. Will see senior financial reporting analyst in May 26. Follow up in 8 weeks or sooner if symptoms persist HPI/Interval History: Since her last visit, Shaheed states she has been doing very well. She has only had 2 migraines within the last few months. She is currently taking Topamax 100 mg at bedtime, and she believes this is very effective. Her MRI brain, MRA, and MRV brain were unremarkable. Her potassium level was within normal limits She was seen by ophthalmology and reports she had a normal examination. She does not one episode at the end of July where she had a bad headache. She went to the emergency room at the time.She underwent a CT head, which was negative for acute process. She states only experiencing one migraine every few weeks at this time. Previous/Current Headache treatment Preventative: Effexor Lexapro Topamax welbutrin Rescue: Tylenol Iboprofen Excedrin Diamox 500 BID General Examination: General Exam Neurological Exam Assessment AND Plan 09/02/2024 - General Neurology, Soto Palacios APRN.CRITICAL CARE EDUCATOR ASSESSMENT Shaheed Jackson is a 24 year old female with history of pseudotumor cerebri, anxiety depression, hyperlipidemia. She is here today for follow up regarding headaches. (G43.009) Migraine without aura and without status migrainosus, not intractable (primary encounter diagnosis) - Shaheed reports significant improvement in migraine frequency since her last visit, with only two migraines over the past few months. - Currently experiencing one migraine every few weeks. - Topamax 100 mg nightly appears effective and well-tolerated. - CT head (ER visit, July): Negative for acute pathology. - MRI brain, MRA, and MRV: Unremarkable. - Ophthalmology evaluation: Normal. - Potassium level: Within normal limits. PLAN 1. Prevention therapy: Continue Topamax 100 mg at bedtime 2. Follow up in 3 months No diagnosis found. No follow-ups on file. === Data Review Objective Current Outpatient Medications Medication Si (more content not included)... [facility] 08-26-2024 Telephone encounter Note Yes, she is just discussing her last with MFM and her risk factors in October. Thank you, Jose G Taylor APRN.CNP [facility] 08-26-2024 Miscellaneous Notes Yes, she is just discussing her last with MFM and her risk factors in October. Thank you, Jose G Taylor APRN.CNP Patient is scheduled with preconception clinic in October. Do you still want patient to make a separate appointment with one of our docs? Shannan Crawford RN documented in this encounter [facility] 08-26-2024 Telephone encounter Note Patient is scheduled with preconception clinic in October. Do you still want patient to make a separate appointment with one of our docs? Shannan Crawford RN [facility] 08-19-2024 Note HNO ID: [id number] Author: FLOWER AMEZQUITA MD Service: ? Author Type: Physician Type: Progress Notes Filed: 08/19/2024 21:50 Note Text: The patient presents for requested ultrasound. Full report available in the Imaging tab in Epic. Flower Amezquita MD [facility] 08-19-2024 History of Presen t illness Narrative The patient presents for requested ultrasound. Full report available in the Imaging tab in Epic. Flower Amezquita MD documented in this encounter [facility] 08-11-2024 Note HNO ID: [id number] Author: DEMI ESPARZA MA Service: ? Author Type: Ct Mri Technologist Type: Progress Notes Filed: 08/11/2024 16:09 Note Text: Scan on 08/11/2024 3:16 PM by Provider, Charly PA-C: [facility] 08-11-2024 History of Presen t illness Narrative Scan on 08/11/2024 3:16 PM by Provider, NATHANIEL ParksC: [facility] documented in this encounter [facility] 08-11-2024 Discharge summary [facility] 08-11-2024 Radiology Diagnostic study note [facility] Imaging Services [address] [place] [address] Brain/Head without Contrast MR#: [id number] Acct: [id number] Name: SHAHEED JACKSON Rep #: [id number] : 2000 F 24 From: Stanford Wood MD PCP: Dr. Bryant Grimm MD Status: REG ER Study:Brain/Head without Contrast Date of Exa m: 08/11/24 Exam# [id number] Ordering Dr: Hakeem Whelan DO PROCEDURE: BRAIN/HEAD WITHOUT CONTRAST 08/11/2024 REASON FOR EXAM: MORRIS TECHNIQUE: BRAIN/HEAD WITHOUT CONTRAST Coronal and Sagittal reconstruction series were provided. One or more dose reduction techniques were used (e.g., Automated exposure control, adjustment of the mA and/or kV according to patient size, use of iterative reconstruction technique. RADIATION DOSE SUMMARY: CTDlvol: 44.99 mGy DLP: 779.24 mGycm COMPARISON: Prior study dated July 07, 2023. FINDINGS: Brain: Normal CSF Spaces: Normal Sinuses/Mastoids: Clear at visualized levels Bones: Unremarkable CT/Brain/Head without Contrast IMPRESSION: NORMAL NONCONTRAST HEAD CT. Reading Location: [facility] CC: Dr. Hakeem Negrete DO; Dr. Bryant Grimm MD ~ Business Information Analyst: Signed [facility] 08-11-2024 Discharge summary Note Date/Time August 11, 2024 3:05pm [facility] Medical Records Department [address] [place] [address] Emergency Department Summary 08/11/24 MR#: [id number] Acct: [id number] Name: SHAHEED JACKSON Rep #:[id number] : 2000 24 From: Hakeem ramsay DO PCP: Dr. Bryant Grimm MD Status:REG ER Location: ED HPI History of Present Illness Chief Complaint: Headache Narrative Narrative: Chief complaint and HPI: Headache. 24-year-old female with past medical historyof migraines, chronic headache, pseudotumor cerebri presents for evaluation of headache. Patient states she follows with neurology for chronic headaches. States she recently just had an MRI of the brain as well as MRV that was unremarkable. She states she had this performed as she has had a constant headache for the past 2 years. Patient states yesterday evening she developed aheadache that has progressively worsened. She took her Topamax and Excedrin with some relief. Patient states she talked to her PCP who sent her in for further evaluation as she states this feels different than her typical migraine. She states this is because the headache is more in the posterior of the brain versus frontal. She endorses photophobia and nausea. Denies any trauma, fever,chills, URI symptoms, neck pain, syncope, numbness, tingling, weakness, vomiting. Review of systems: See HPI Medications: As listed on the chart Allergies: As listed on the chart PFSH: Per chart Vital signs: As listed on the chart. Reviewed. Physical exam: Gen: A&O x3, NAD Head: Normocephalic, atraumatic Eyes: No sclera icterus, conjunctiva clear, PERRL, EOMI ENT: Moist mucous membranes, No facial asymmetry Neck: Trachea midline, No JVD CV: RRR, no murmurs, no peripheral edema Resp: Lungs CTA BL, no w/r/c GI: Abd soft, non-distended, non-tender, no r/r/g Musc: Full ROM, no deformity, strength +5/5 in all extremities, no ataxia Skin: Warm, dry, intact Neuro: Alert, oriented, grossly intact, sensation intact, no focal deficits Psych: Cooperative, appropriate mood and affect PFSH PFSH Medical History Pseudotumor cerebri Allergy/AdvReac Type Severity Reaction Status Date / Time No Known Allergies Allergy Verified 07/07/23 10:12 Surgical History Hx of section Social History Smoking Status: Never smoker substance use type: does not use EXAM Physical Exam Const Vital Signs: 08/11/24 12:07 08/11/24 14:07 Temperature 98.1 F Temperature Source Oral Pulse Rate 91 63 Respiratory Rate 16 18 Blood Pressure 164/71 H Blood Pressure Mean 102 Pulse Ox 99 97 Oxygen Delivery Method Room Air Room Air MDM MDM MDM Narrative Medical decision making narrative: 24-year-old female with past medical history of migraines, chronic headache, pseudotumor cerebri presents for evaluation of headache. Patient states she took her Topamax and Excedrin with some relief. States that it feels different than her typical migraines given that it is more posterior that frontal. Deniesacute onset of headache reaching maximal intensity in under one hour. This is neither the worst headache that they have ever experienced, nor was the onset timed with exertional activity or trauma. Patient has not experienced any fever,unusual neck pain or stiffness, syncope. Denies numbness, tingling, or weaknessof the extremities. Differential diagnosis includes but is not limited to migraine, tension headache, suspect less likely intracranial abnormality, SAH, pseudotumor cerebri. NS bolus, morphine, Reglan, Benadryl ordered for migraine cocktail. CT of the head ordered. CT of the head shows no acute intracranial abnormality. At this point in time, I suspect patient's symptoms are secondary to a migraine. On reevaluation, patient states her symptoms have improved. Patient is stable to discharge home. Recommend following up with PCP and neurologist. She was offered antinausea medicine for home but declined. Returnprecautions explained. Impression: 1. Migraine 2. History of migraines Radiography Diagnostic Testing: Clinical Impression(s) from Imaging Studies Brain CT 08/11/24 14:31 IMPRESSION: NORMAL NONCONTRAST HEAD CT. Reading Location: [facility] Discharge Plan Triage Chief Complaint: Headache ED Provider: Hakeem Negrete Dx/Rx/DC Orders Clinical Impression: Migraine Instructions: ED, Migraine (Classical) Primary Care Provider: Bryant Grimm Referrals: Bryant Grimm MD [Primary Care Provider] - Activity Restrictions/Additional Instructions: Follow-up with your primary care physician as well as your neurologist. Return back to the ED if symptoms change or worsen. Print Language: Jordanian Disposition Disposition: Home, Self Care What to do if you have Problems For any increased pain, shortness of breath, bleeding, nausea or vomiting, chestpain, or any unexpected problems, contact your Primary Care Provider. Call [facility] ([phone]) or report to the closest Emergency Room. Call 911 if necessary. 08/11/24 1505 <Electronically signed by Hakeem Negrete DO> Cosigner Signature (if applicable): CC: Dr. Bryant Grimm MD ~ Signed [facility] Work Phone: [phone] Telephone encounter Note* Telephone Encounter - Mirtha Reinoso RN - 08/11/2024 10:21 AM EDT Triage Protocol Advised: ER now. Pt states she is at work currently and will try to go within a couple hours. This nurse advised again-ER now. Pt voiced understanding. Reason for Disposition Unable to walk, or can only walk with assistance (e.g., requires support) Answer Assessment - Initial Assessment Questions Received MC message from patient. Contacted pt for further triage of headache. -Pt reports began with headache yesterday-took Excedrin, not effective -woke up this morning and headache was 10 times worse -rates current pain as 8-9 out of 10-took 2 Excedrin 7am -feel like passing out at times when standing up -dizzy when standing at times -blurred vision at times -reports her Neurologist is out currently -no numbness or tingling anywhere -no cold sx's 1. LOCATION: middle back of head, in soft spot part of head, sometimes radiates into forehead 2. ONSET: yesterday 3. PATTERN: varies, constant 4. SEVERITY: 8-9 out of 10, one of the worse I've had 5. RECURRENT SYMPTOM: yes 6. CAUSE: Pt not certain 7. MIGRAINE: yes 8. HEAD INJURY: denies 9. OTHER SYMPTOMS:no fever, some stiff neck, no eye pain, eyelids feel heavy, no sore throat, no cold symptoms 10. : denies Protocols used: [id number] [facility]06-25-2025 Miscellaneous Notes* Telephone Encounter - Mirtha Reinoso RN - 08/11/2024 10:21 AM EDT Triage Protocol Advised: ER now. Pt states she is at work currently and will try to go within a couple hours. This nurse advised again-ER now. Pt voiced understanding. Reason for Disposition Unable to walk, or can only walk with assistance (e.g., requires support) Answer Assessment - Initial Assessment Questions Received MC message from patient. Contacted pt for further triage of headache. -Pt reports began with headache yesterday-took Excedrin, not effective -woke up this morning and headache was 10 times worse -rates current pain as 8-9 out of 10-took 2 Excedrin 7am -feel like passing out at times when standing up -dizzy when standing at times -blurred vision at times -reports her Neurologist is out currently -no numbness or tingling anywhere -no cold sx's 1. LOCATION: middle back of head, in soft spot part of head, sometimes radiates into forehead 2. ONSET: yesterday 3. PATTERN: varies, constant 4. SEVERITY: 8-9 out of 10, one of the worse I've had 5. RECURRENT SYMPTOM: yes 6. CAUSE: Pt not certain 7. MIGRAINE: yes 8. HEAD INJURY: denies 9. OTHER SYMPTOMS:no fever, some stiff neck, no eye pain, eyelids feel heavy, no sore throat, no cold symptoms 10. : denies Protocols used: [id number] [facility] Telephone encounter Note * Telephone Encounter - eDmi Esparza MA - 08/11/2024 10:19 AM EDT Placed on Nurse Triage appt at 10:30 am to contact pt. Pt follows with Neuro. Demi Esparza MA [facility]06-25-2025 Miscellaneous Notes* Telephone Encounter - Demi Esparza MA - 08/11/2024 10:19 AM EDT Placed on Nurse Triage appt at 10:30 am to contact pt. Pt follows with Neuro. Demi Esparza MA documented in [facility] Instructions* Patient Instructions* Rosa M Parsons APRN.CRITICAL CARE EDUCATOR - 08/07/2024 11:01 AM EDT COLONOSCOPY BOWEL PREPARATION INSTRUCTIONS GOLYTELY/NULYTELY/TRILYTE/COLYTE Your doctor has scheduled you for a colonoscopy. To have a successful colonoscopy, you must have a clean colon, that is empty. A clean colon allows your doctor to see the entire colon & diagnose issues like polyps or cancer. For doctors, a clean colon is like driving on a siddhartha day; a dirty colon like driving in a storm. It is very important that you follow these instructions exactly, or your colonoscopy might not be as effective, could be canceled, and you may need to do the bowel prep and the colonoscopy again. TRANSPORTATION REQUIREMENTS You are receiving IV sedation. For your safety, a responsible adult escort must accompany you to and from your procedure: Your adult escort MUST be present with you at check-in for your colonoscopy. Your adult escort MUST remain in the endoscopy area until you are discharged. Your adult escort MUST transport you home once you are discharged. You are NOT allowed to operate any form of transportation (i.e. drive a car, bicycle, etc.) or leave the Endoscopy Center ALONE. It is not safe to do so. If you cannot meet these requirements, your procedure will be canceled. MEDICATION REQUIREMENTS For your safety, certain medications will need to be stopped or adjusted before you can have your procedure: BLOOD THINNERS: If you take blood thinners, such as Coumadin (warfarin), Plavix (clopidogrel), Ticlid (ticlopidine hydrochloride), Agrylin (anagrelide), Xarelto (Rivaroxaban), Pradaxa (Dabigatran), Eliquis (Apixaban), or Effient (Prasugrel), contact the physician who is prescribing these medications at least 2 weeks prior to your procedure to discuss any necessary adjustments. DIABETES: If you take medications for diabetes, your dosage may need to be adjusted. If you are being treated for diabetes with insulin, diabetic pills, or other injectable medicationsdo not take your REGULAR dose after midnight on the day of your procedure. If you are taking any other types of insulin such as Lantus, Humalog, NPH (long- acting insulin), or70/30 insulin, take half your normal dose the day before your procedure. DIABETES/WEIGHT MANAGEMENT: If you take medications for weight-loss, your dosage may need to be adjusted Contact the doctor who prescribes this medication for further instructions. If you take medications for weight-loss like semaglutide (Ozempic, Wegovy, Rybelsus), dulaglutide (Trulicity), liraglutide (Victoza, Saxenda), exenatide (Byetta, Bydureon), or lixisenatide (Adylyxin), stop your medication 1 week prior to your procedure. If you take medications like canagliflozin (Invokana), dapagliflozin (Farxiga, Forxiga), empagliflozin (Jardiance), stop your medication 3 days prior to your procedure. If you take ertugliflozin (Steglatro) stop your medication 4 days prior to your procedure. IRON: If you take iron pills, STOP them 1 week BEFORE your procedure, may resume after. OTHER MEDS: May take all other medications (including aspirin, antibiotics, water pills / diureticslike Lasix or Metolozone, blood pressure meds, etc.) at their usual scheduled time with a sip of water. DIET REQUIREMENTS The day before your colonoscopy, you may have a clear liquid diet (see below). The day of your colonoscopy, you may continue a clear liquid diet until 3 hours before your colonoscopy. Within 3 hours of your colonoscopy, take only any medications (as above) with a sip of water. Clear Liquid Diet Broth (chicken, beef or vegetable broth or bullion. Just the broth, no solids). Water Coffee or Tea (NO milk or creamer), but sugar and sugar substitutes are allowed. Clear liquids including clear, yellow, green, blue (NO red, NO orange, NO purple) Sodas / soft drinks Gatorade or other sports drinks Santhosh-Aid or flavored drinks Plain Jell-O or other gelatins Fruit juice (strained; no-pulp) Popsicles or hard candy BOWEL PREPARATION (GOLYTELY/NULYTELY/TRILYTE/COLYTE) Split Dosing Bowel Prep: This means drinking your bowel prep in two doses. Split dosing helps cleanyour colon better and makes it less likely that your procedure will be canceled. Fill your prescription for Golytely/Nulytely/Trilyte/Colyte: The afternoon before your colonoscopy, mix the solution and refrigerate. You may add the flavor pack (if present) that came with the bowel preparation. Do not add ice, sugar, or other flavorings to the solution. You will drink your prep in two doses, by several hours. On the evening before your colonoscopy: 1. 6 PM drink the first half of the bowel preparation solution. Drink one 8-ounce glass every 15 minutes. 2. Six hours before your colonoscopy, drink the second half of the solution. Drink one 8-ounce glass every 15 minutes. 3. You may continue a clear liquid diet until 3 hours before your colonoscopy. Bowel prep can work differently from person to person. Some people's bowels move slowly and they may need different instructions. Please see your doctor in office or virtually for personalized bowel prep instructions if you have: Medical condition that needs special accommodations Had a poor bowel prep results or failed bowel prep attempts in the past. Had difficulty with anesthesia during the procedure. FREQUENTLY ASKED QUESTIONS Q: What if I suffer from constipation? A: Recommend taking extra laxatives to resolve your constipation days prior to entering the bowel prep day. Q: What if have had prior poor preps results in past? A: Contact your physician as you will likely need additional bowel prep instructions. Q: What if I have motility issues like Parkinson's, MS (multiple sclerosis), wheelchair dependent, etc.? or on medications that slow bowel emptying (narcotics, gabapentin, anticholinergic medicationsetc.) A: Contact your physician as you will likely need extra time and additional laxatives to complete your bowel prep. Q: What if I cannot drink large volume of liquid? A: Start your prep 2-3 hours earlier to allow yourself more time to complete the entire prep. Q: What if I can't finish my bowel prep? A: If you cannot finish your entire bowel prep, it is likely that your colonoscopy will need to be rescheduled due to poor prep quality. Q: What if I had bariatric surgery? Do I still have to complete the entire prep? A: Yes, gastric bypass surgery involves the stomach & small bowel. You may need to drink smaller amounts, slower (may need more time to complete your bowel prep). Gastric bypass does not alter the length of your colon so you will need to complete the entire bowel prep, it may just take longer time to complete it. Q: What if I am on dialysis? A: Please consult your roll plugger machine operator prior to scheduling to get instructions pertinent to you. In general, dialysis patients take the MarginLeftly bowel prep and have the procedure same day of their dialysis (colonoscopy in AM, dialysis in PM). Q: How do I know if something is considered as clear liquid diet? A: If you can pour it in a glass and you can see through it, it is considered clear liquid Q: Can I eat nuts, seeds, beans, popcorn, dried fruits, vegetables & fruits that have skin peel? A: No, you will need to not eat these items starting 3 days prior to procedure. Q: Can I take Uber/Lyft/taxi/bus home? A: An adult MUST be present with you at check-in for your colonoscopy and remain in the endoscopy area until you are discharged. You can take Uber home only if this adult escort is with you at check in, remain in the endoscopy area until you are discharged, and takes the Uber with you to home. Q: Can I sleep it off here and drive myself home? A: No, you must have an adult with you at time of procedure check in, remain in the endoscopy center during your procedure, and drive you home. You cannot drive a vehicle after your procedure the rest of the day. COLONOSCOPY BOWEL PREPARATION INSTRUCTIONS MiraLAX Your doctor has scheduled you for a colonoscopy. To have a successful colonoscopy, you must have a clean colon, that is empty. A clean colon allows your doctor to see the entire colon & diagnose issues like polyps or cancer. For doctors, a clean colon is like driving on a siddhartha day; a dirty colon like driving in a storm. It is very important that you follow these instructions exactly, or your colonoscopy may not be as effective, could be canceled, and you may need to do the bowel prep and colonoscopy again. TRANSPORTATION REQUIREMENTS You are receiving IV sedation. For your safety, a responsible adult escort must accompany you to and from your procedure: Your adult escort MUST be present with you at check-in for your colonoscopy. Your adult escort MUST remain in the endoscopy area until you are discharged. Your adult escort MUST transport you home once you are discharged. You are NOT allowed to operate any form of transportation (i.e. drive a car, bicycle, etc) or leavethe Endoscopy Center ALONE. It is not safe to do so. If you cannot meet these requirements, your procedure will be canceled. MEDICATION REQUIREMENTS For your safety, certain medications will need to be stopped or adjusted before you can have your procedure: BLOOD THINNERS: If you take blood thinners, such as Coumadin (warfarin), Plavix (clopidogrel), Ticlid (ticlopidine hydrochloride), Agrylin (anagrelide), Xarelto (Rivaroxaban), Pradaxa (Dabigatran), Eliquis (Apixaban), or Effient (Prasugrel), contact the physician who is prescribing these medications at least 2 weeks prior to your procedure to discuss any necessary adjustments. DIABETES: If you take medications for diabetes, your dosage may need to be adjusted. If you are being treated for diabetes with insulin, diabetic pills, or other injectable medicationsdo not take your REGULAR dose after midnight on the day of your procedure. If you are taking any other types of insulin such as Lantus, Humalog, NPH (long- acting insulin), or70/30 insulin, take half your normal dose the day before your procedure. DIABETES/WEIGHT MANAGEMENT: If you take medications for weight-loss, your dosage may need to be adjusted Contact the doctor who prescribes this medication for further instructions. If you take medications for weight-loss like semaglutide (Ozempic, Wegovy, Rybelsus), dulaglutide (Trulicity), liraglutide (Victoza, Saxenda), exenatide (Byetta, Bydureon), or lixisenatide (Adylyxin), stop your medication 1 week prior to your procedure. If you take medications like canagliflozin (Invokana), dapagliflozin (Farxiga, Forxiga), empagliflozin (Jardiance), stop your medication 3 days prior to your procedure. If you take ertugliflozin (Steglatro) stop your medication 4 days prior to your procedure. IRON: If you take iron pills, STOP them 1 week BEFORE your procedure, may resume after. OTHER MEDS: May take all other medications (including aspirin, antibiotics, water pills / diureticslike Lasix or Metolozone, blood pressure meds, etc.) at their usual scheduled time with water. DIET REQUIREMENTS The day before your colonoscopy, you may have a clear liquid diet (see below). The day of your colonoscopy, you may continue a clear liquid diet until 3 hours before your colonoscopy. Within 3 hours of your colonoscopy, take only any medications (as above) with a sip of water. Clear Liquid Diet Broth (chicken, beef or vegetable broth or bullion. Just the broth, no solids). Water Coffee or Tea (NO milk or creamer), but sugar and sugar substitutes are allowed. Clear liquids including clear, yellow, green, blue (NO red, NO orange, NO purple) Sodas / soft drinks; Gatorade or other sports drinks Fruit juice (strained; no-pulp); Santhosh-Aid or flavored drinks Plain Jell-O or other gelatins Popsicles or hard candy Bowel prep can work differently from person to person. Some people's bowels move slowly and they may need different instructions. Please see your doctor in office or virtually for personalized bowel prep instructions if you have: BOWEL PREPARATION (MIRALAX/GATORADE) Split Dosing Bowel Prep: This means drinking your bowel prep in two doses. Split dosing helps cleanyour colon better and makes it less likely that your procedure will be canceled. You will need to purchase the following (no prescriptions are needed): 64 ounces Gatorade, Propel, Crystal Lite or other noncarbonated clear liquid sports drink (NOT red,orange, or purple). Diabetic patients buy sugar-free, e.g. Gatorade G2 4 Dulcolax laxative tablets containing 5mg bisacodyl each (do not buy the stool softener) 8.3 oz MiraLAX (238g) powder or generic polyethylene glycol 3350 (find in laxative aisle) The day before your colonoscopy mix 64 oz of the sports drink with 8.3 oz MiraLAX (238 g) in a pitcher. Stir or shake until MiraLAX completely dissolved. Chill if desired. On the evening before your colonoscopy: 5 PM take 4 Dulcolax laxative tablets with water by mouth. 6 PM drink the first half of the Gatorade/MiraLAX solution Drink one 8-ounce glass every 15 minutes. Six hours before your colonoscopy, drink the second half of the solution. Drink one 8-ounce glass every 15 minutes. You may continue a clear liquid diet until 3 hours before your colonoscopy. Bowel prep can work differently from person to person. Some people's bowels move slowly and they may need different instructions. Please see your doctor in office or virtually for personalized bowel prep instructions if you have: Medical condition that needs special accommodations Had a poor bowel prep results or failed bowel prep attempts in the past. Had difficulty with anesthesia during the procedure. FREQUENTLY ASKED QUESTIONS Q: What if I suffer from constipation? A: Recommend taking extra laxatives to resolve your constipation days prior to entering the bowel prep day. Q: What if have had prior poor preps results in past? A: Contact your physician as you will likely need additional bowel prep instructions. Q: What if I have motility issues like Parkinson's, MS (multiple sclerosis), wheelchair dependent, etc.? or on medications that slow colonic transit times (narcotics, gabapentin, anticholinergic medications etc.) A: Contact your physician as you will likely need extra time and additional laxatives to complete your bowel prep. Q: What if I cannot drink large volume of liquid? A: Start your prep 2-3 hours earlier to allow yourself more time to complete the entire prep. Q: What if I had bariatric surgery? Do I still have to complete the entire prep? A: Yes, gastric bypass surgery involves the stomach & small bowel. You may need to drink smaller amounts, slower (may need more time to complete your bowel prep). Gastric bypass does not alter the length of your colon so you will need to complete the entire bowel prep, it may just take longer time to complete it. Q: What if I am on dialysis? A: Please consult your roll plugger machine operator prior to scheduling to get instructions pertinent to you. In general, dialysis patients take the [employer] bowel prep and have the procedure same day of their dialysis (colonoscopy in AM, dialysis in PM). Q: How do I know if something is considered as clear liquid diet? A: If you can pour it in a glass and you can see through it, it is considered clear liquid Q: Can I eat nuts, seeds, beans, popcorn, dried fruits, vegetables & fruits that have skin peel? A: No, you will need to not eat these items starting 3 days prior to procedure. Q: Can I take Uber/Lyft/taxi/bus home? A: An adult MUST be present with you at check-in for your colonoscopy and remain in the endoscopy area until you are discharged. You can take Uber home only if this adult escort is with you at check in, remain in the endoscopy area until you are discharged, and takes the Uber with you to home. Q: Can I sleep it off here and drive myself home? A: No, you must have an adult with you at time of procedure check in, remain in the endoscopy center during your procedure, and drive you home. You cannot drive a vehicle after your procedure the rest of the day. Q: What if I can't finish my bowel prep? A: If you cannot complete your entire bowel prep, there is high likelihood that your colonoscopy will need to be rescheduled due to inadequate prep quality. documented in this encounterUniversity [facility] History of Present illness Narrative* Rosa M Parsons APRN.CNP - 08/07/2024 11:00 AM EDT NAME: Shaheed Jackson AGE: [age] year old Patient is referred in consultation by Bryant Grimm for an opinion regarding MASLD and my finalrecommendations will be communicated back to the requesting physician by way of shared Medical Record. PRESENTING COMPLAINT & HISTORY HPI: The patient is a pleasant 24-year-old female with fatty liver and hypertriglyceridemia, presenting for evaluation and management of fatty liver. PMHx includes HLD, JUAN M, WHITNEY and obesity She reports being diagnosed with fatty liver following an ultrasound performed in May, and is aware that one of her liver enzymes is slightly elevated, which was attributed to the fatty liver. Her liver function, platelets, and albumin are normal. She is currently awaiting insurance approval for Ozempic for weight loss, as her insurance plan does not have weight loss benefits. 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 She is also taking flaxseed oil (omega-3-6-9) daily as recommended, but has not been started on any other lipid- lowering medications prior to this visit. Her triglycerides were measured at 391 two years ago (reference <150), and acknowledges this is a significant contributor to her fatty liver. She denies regular alcoholuse, stating she tries not to drink and only consumed alcohol at a alliance party the night before the visit, as she does not like the way it makes her feel. She reports her glucose has been pretty normal and denies having diabetes. She takes propranolol for anxiety, not for blood pressure, and is not currently on a statin. Regarding gastrointestinal symptoms, she describes lifelong constipation, characterized by infrequent bowel movements, sometimes going several days without a bowel movement. When she does have a bowel movement, the stool is often rock hard or, more recently, in the form of little pellets. She notes that at times her stools can be real soft, but this is less common. She primarily drinks water in an effort to improve her symptoms. She expresses concern about the chronicity and familial nature of her constipation, noting that her father and other family members have also experienced significant bowel issues. She has never undergone a colonoscopy but expresses interest in one, particularly given her family history of colon cancer in her grandmother, which was detected by colonoscopy. She reports no current appointments at the main campus but is open to scheduling further testing asneeded. She is the mother of a 3-year-old daughter and is considering another , having recently discussed this with her OB. She is not aware of any personal or family history of heart disease, though her paternal grandfather of a presumed heart attack and her father has high cholesterol. (May) Abdominal Ultrasound: Fatty infiltration of the liver (2 years ago) Lipid Panel: - Triglycerides: 391 mg/dL (elevated) Liver Enzymes: Mildly elevated Platelets: Normal Albumin: Normal Metabolic Syndrome Risk factors: 4/5 1) Diabetes/ Abnormal FBS >100mg/dL:Prediabetes 2) Hypertension : No 3)Triglycerides more then 150 : Yes 4) HDL (<50 female and <40 male): Yes 5) Central obesity ( Waist >102 men and >88 female) - Body mass index is 42.75 kg/(m^2). PAST SURGICAL HISTORY Procedure Laterality Date SECTION HX 05/02/2021 NONE PAST SURGICAL HISTORY OF 07/20/2024 [place] teeth extraction PAST MEDICAL HISTORY Diagnosis Date Attention deficit hyperactivity disorder (ADHD), combined type 12/14/2014 Class 2 obesity due to excess calories without serious comorbidity with body mass index (BMI) of 37.0 to 37.9 in adult Elevated hemoglobin A1c 05/03/2022 PANCHO (generalized anxiety disorder) 05/02/2022 Hyperlipidemia, mixed 05/03/2022 Major depressive disorder with single episode 05/02/2022 Oppositional defiant disorder 11/07/2007 JUAN M (obstructive sleep apnea) 05/25/2024 Seeing [facility] Sleep Med. 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 Pseudotumor cerebri 07/04/[address] Andrew Seasonal allergies Thrombocytosis 05/03/2022 Chronic since 2003 (500-550) Vitamin D deficiency 05/25/2024 Social History Tobacco Use Smoking status: Never Passive exposure: Never Smokeless tobacco: Never Vaping Use Vaping status: Never Used Substance Use Topics Alcohol use: No Drug use: No Current Outpatient Medications Medication Sig Dispense Refill PROZAC 20 mg capsule Take 40 mg by mouth once daily. hydrOXYzine HCl (ATARAX) 25 mg tablet Take 25 mg by mouth three times a day as needed. topiramate (TOPAMAX) 100 mg tablet Take 1 tablet by mouth daily at bedtime. 30 tablet 2 buPROPion XL (WELLBUTRIN XL) 300 mg 24 hr tablet Take 1 tablet by mouth once daily. Per Psych, Tranquility 90 tablet 1 cholecalciferol, Vitamin D3, (VITAMIN D3) 1,250 mcg (50,000 unit) cap capsule Take 1 capsule by mouth one time a week. 12 capsule 3 aspirin/acetaminophen/caffeine (EXCEDRIN MIGRAINE ORAL) Take by mouth as needed. Drug free headacheCare L.deont,peg,francis,rhamn (AZO VAGINAL HEALTH PROBIOTIC ORAL) Take 1 capsule by mouth once daily. Lacto no.76/Bifido/FOS/larch (WOMEN'S PROBIOTIC ORAL) Take 1 capsule by mouth once daily. mv-min/iron/folic/calcium/vitK (WOMEN'S MULTIVITAMIN ORAL) Take 1 tablet by mouth once daily. propranolol (INDERAL) 10 mg tablet Take 10 mg by mouth. As needed flaxseed oil (OMEGA 3 ORAL) Take 2 capsules by mouth once daily. CPAP/BIPAP/OTHER autoCPAP 8-10 cmH2O [facility] 1 Each 0 acetaminophen 325 mg cap Take by mouth as needed. cetirizine (ZYRTEC) 10 mg tablet Take 1 tablet by mouth once daily. 30 tablet 0 Ibuprofen 200 mg cap Take by mouth every 4 hours as needed. FOR PAIN. 0 No current facility-administered medications for this visit. ALLERGIES No Known Allergies FAMILY HISTORY Problem Relation Age of Onset other (Other) Mother restless leg Lipids Father Diabetes Maternal Grandmother Hypertension Maternal Grandmother other (sleep apnea) Maternal Grandmother Hypertension Maternal Grandfather other (sleep apnea) Maternal Grandfather Skin Cancer Maternal Grandfather Colon Cancer Paternal Grandmother Lipids Paternal Grandfather Diabetes Paternal Grandfather GENERAL ROS Colon polyps: No Colon cancer: No Other cancer: No Radiation / Chemotherapy: No Crohn's disease / Ulcerative colitis: No High cholesterol or triglycerides: Yes Ulcers: No Gallstones: No Hepatitis / jaundice: No Heart Disease: No Lung Disease: No Liver problems: hepatic steatosis Thyroid disease: No Kidney stones: No Pancreatitis: No Diabetes: Yes Arthritis: No Rheumatic fever: No Gastrointestinal bleeding: No Depression or other mental illness: No Other personal illness: No PHYSICAL EXAMINATION LMP 06/26/2024 08/07/24 1049 BP: 119/76 Pulse: 80 Resp: 16 Weight: 120 kg (264 lb 8 oz) Height: 167.6 cm (5' 6) General Appearance: Well appearing, alert, in no acute distress, well-hydrated, well nourished. Eyes: Conjunctiva and sclera normal Oropharynx: Lips, tongue, and oral mucosa normal. There is no thrush or oral ulcers. Abdomen: not distended Extremities: no cyanosis or edema Skin: no jaundice, no spider angiomas, no palmar erythema Neuro:alert, oriented x 3, pleasant and in no acute distress Recent Labs: Hemoglobin (g/dL) Date Value 06/24/2024 12.2 HEMOGLOBIN (g/dL) Date Value 03/30/2024 12.3 Hematocrit (%) Date Value 06/24/2024 37.3 HEMATOCRIT (%) Date Value 03/30/2024 37.1 WBC Date Value 06/24/2024 12.07 k/uL 03/30/2024 11.3 K/uL Glucose Date Value 05/05/2024 84 mg/dL 03/30/2024 78 MG/DL 03/30/2024 Negative Potassium (mmol/L) Date Value 05/25/2024 4.1 K (mmol/L) Date Value 03/30/2024 4.2 Sodium (mmol/L) Date Value 05/05/2024 137 NA (mmol/L) Date Value 03/30/2024 135 Chloride Date Value 05/05/2024 100 mmol/L 03/30/2024 98 MEQ/L CO2 Date Value 05/05/2024 24 mmol/L 03/30/2024 27 MEQ/L Creatinine Date Value 05/05/2024 0.58 mg/dL 03/30/2024 0.58 MG/DL BUN Date Value 05/05/2024 9 mg/dL 03/30/2024 10 MG/DL Anion Gap (mmol/L) Date Value 05/05/2024 13 Calcium (mg/dL) Date Value 03/30/2024 10.6 Calcium, Total (mg/dL) Date Value 05/18/2024 10.3 Albumin (g/dL) Date Value 05/18/2024 4.6 Bilirubin, Total (mg/dL) Date Value 05/18/2024 0.2 Bilirubin, Direct (mg/dL) Date Value 05/18/2024 0.1 Alkaline Phosphatase (U/L) Date Value 05/18/2024 57 AST (U/L) Date Value 05/18/2024 33 ALT (U/L) Date Value 05/18/2024 54 (H) Protein, Total (g/dL) Date Value 05/18/2024 8.0 Computed MELD 3.0 unavailable. One or more values for this score either were not found within the given timeframe or did not fit some other criterion. Computed MELD-Na unavailable. One or more values for this score either were not found within the given timeframe or did not fit some other criterion. Assessment IMPRESSION/PLAN 1. WHITNEY (nonalcoholic steatohepatitis) (K75.81) Ultrasound in May revealed fatty liver. Liver enzymes slightly elevated, likely due to fatty liver. Liver function tests, platelets, and albumin are normal. High triglycerides contributing to fattyliver. No current weight loss medication approved by insurance. - Ordered FibroScan to assess the extent of fat infiltration and scarring in the liver. Test to be performed at the main [place], 5th floor. Patient instructed to fast for 3 hours before the test. - Initiated Atorvastatin 20 mg daily to manage hypertriglyceridemia, to follow up with PCP for ongoing treatment - Advised patient on the importance of weight loss, even a 5% reduction can help reduce liver fat. - Discussed the potential need for a liver biopsy if FibroScan results indicate significant scarring. - Patient to follow up with primary care physician in December for further management of hypertriglyceridemia and to monitor liver function tests. 2. Altered bowel habits (R19.4) Chronic constipation (K59.09) Chronic constipation with alternating hard and soft stools. Family history of bowel issues. No previous colonoscopy. - Ordered colonoscopy to evaluate for potential underlying causes such as diverticulosis or malignancy. - Provided patient with alternative colonoscopy prep instructions using Gatorade, Miralax, and Dulcolax. 3. Encounter for screening for malignant neoplasm of colon (Z12.11) Family history of colon cancer in grandmother. Chronic constipation and altered bowel habits warrant screening. - Colonoscopy will serve as a screening tool for malignant neoplasm of the colon. 4. Hypertriglyceridemia (E78.1) Triglyceride level significantly elevated at 391 mg/dL (normal <150 mg/dL). Contributing to fatty liver. No current medication for cholesterol management. - Initiated Atorvastatin 20 mg daily. - Patient to continue taking flaxseed oil as previously recommended. - Follow-up lipid panel scheduled for October. - Patient to follow up with primary care physician in December for further management. Return to office as needed. During this patient visit I have spent approximately 35 minutes out of 35 in counseling regarding LAF diet, weight loss, exercise, treatment options, medications, and test results and coordinating care. Rosa M Parsons APRN.CNP August 06, 2024 11:41 AM' documented in this encounterUniversity [facility]als [facility]06-21-2025 NoteHNO ID: [id number] Author: ROSA M PARSONS APRN.CNP Service: ? Author Type: Nurse Practitioner Type: Progress Notes Filed: 09/14/2024 18:20 Note Text: NAME: Shaheedfay Jackson AGE: [age] year old Patient is referred in consultation by Bryant Grimm for an opinion regarding MASLD and my final recommendations will be communicated back to the requesting physician by way of shared Medical Record. PRESENTING COMPLAINT AND HISTORY HPI: The patient is a pleasant 24-year-old female with fatty liver and hypertriglyceridemia, presenting for evaluation and management of fatty liver. PMHx includes HLD, JUAN M, WHITNEY and obesity She reports being diagnosed with fatty liver following an ultrasound performed in May, and is aware that one of her liver enzymes is slightly elevated, which was attributed to the fatty liver. Her liver function, platelets, and albumin are normal. She is currently awaiting insurance approval for Ozempic for weight loss, as her insurance plan does not have weight loss benefits. 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 She is also taking flaxseed oil (omega-3-6-9) daily as recommended, but has not been started on any other lipid-lowering medications prior to this visit. Her triglycerides were measured at 391 two years ago (reference <150), and acknowledges this is a significant contributor to her fatty liver. She denies regular alcohol use, stating she tries not to drink and only consumed alcohol at a alliance party the night before the visit, as she does not like the way it makes her feel. She reports her glucose has been pretty normal and denies having diabetes. She takes propranolol for anxiety, not for blood pressure, and is not currently on a statin. Regarding gastrointestinal symptoms, she describes lifelong constipation, characterized by infrequent bowel movements, sometimes going several days without a bowel movement. When she does have a bowel movement, the stool is often rock hard or, more recently, in the form of little pellets. She notes that at times her stools can be real soft, but this is less common. She primarily drinks water in an effort to improve her symptoms. She expresses concern about the chronicity and familial nature of her constipation, noting that her father and other family members have also experienced significant bowel issues. She has never undergone a colonoscopy but expresses interest in one, particularly given her family history of colon cancer in her grandmother, which was detected by colonoscopy. She reports no current appointments at the main campus but is open to scheduling further testing as needed. She is the mother of a 3-year-old daughter and is considering another , having recently discussed this with her OB. She is not aware of any personal or family history of heart disease, though her paternal grandfather of a presumed heart attack and her father has high cholesterol. (May) Abdominal Ultrasound: Fatty infiltration of the liver (2 years ago) Lipid Panel: - Triglycerides: 391 mg/dL (elevated) Liver Enzymes: Mildly elevated Platelets: Normal Albumin: Normal Metabolic Syndrome Risk factors: 4/5 1) Diabetes/ Abnormal FBS >100mg/dL:Prediabetes 2) Hypertension : No 3)Triglycerides more then 150 : Yes 4) HDL (<50 female and <40 male): Yes 5) Central obesity ( Waist >102 men and >88 female) - Body mass index is 42.75 kg/(m2). PAST SURGICAL HISTORY Procedure Laterality Date SECTION HX 05/02/2021 NONE PAST SURGICAL HISTORY OF 07/20/2024 [place] teeth extraction PAST MEDICAL HISTORY Diagnosis Date Attention deficit hyperactivity disorder (ADHD), combined type 12/14/2014 Class 2 obesity due to excess calories without serious comorbidity with body mass index (BMI) of 37.0 to 37.9 in adult Elevated hemoglobin A1c 05/03/2022 PANCHO (generalized anxiety disorder) 05/02/2022 Hyperlipidemia, mixed 05/03/2022 Major depressive disorder with single episode 05/02/2022 Oppositional defiant disorder 11/07/2007 JUAN M (obstructive sleep apnea) 05/25/2024 Seeing [facility] Sleep Med. 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 Pseudotumor cerebri 07/04/[address] Andrew Seasonal allergies Thrombocytosis 05/03/2022 Chronic since 2003 (500-550) Vitamin D deficiency 05/25/2024 Social History Tobacco Use Smoking status: Never Passive exposure: Never Smokeless tobacco: Never Vaping Use Vaping status: Never Used Substance Use Topics Alcohol use: No Drug use: No Current Outpatient Medications Medication Sig Dispense Refill PROZAC 20 mg capsule Take 40 mg by mouth once daily. hydrOXYzine HCl (ATARAX) 25 mg tablet (more content not included)...[facility]06-19-2025 Telephone encounter Note* Telephone Encounter - Jose G Taylor APRN.CNP - 08/05/2024 9:42 AM EDT I believe she wants semen analysis order sent to [place]. I can sign order. Please call her or send info with instructions. Can't guarantee [facility] will give her specimen cup as I don't know anyone specifically that I can reach out to about having one available for her. Jose G Taylor APRN.CNP [facility]06-19-2025 Miscellaneous Notes* Telephone Encounter - Jose G Taylor APRN.CNP - 08/05/2024 9:42 AM EDT I believe she wants semen analysis order sent to [place]. I can sign order. Please call her or send info with instructions. Can't guarantee [facility] will give her specimen cup as I don't know anyone specifically that I can reach out to about having one available for her. Jose G Taylor APRN.BING * Telephone Encounter - Shannan Crawford RN - 08/05/2024 9:35 AM EDT Patient seen for virtual visit today. Was semen analysis going to be ordered through [facility]? Shannan Crawford RN documented in this encounterUniversity Hospitals [facility]06-19-2025 Telephone encounter Note * Telephone Encounter - Shannan Crawford RN - 08/05/2024 9:35 AM EDT Patient seen for virtual visit today. Was semen analysis going to be ordered through [facility]? Shannan Crawford RN [facility]06-19-2025 NoteHNO ID: [id number] Author: JOSE G TAYLOR APRN.CNP Service: ? Author Type: Nurse Practitioner Type: Progress Notes Filed: 08/05/2024 07:17 Note Text: OGI VIRTUAL VISIT Virtual limitations reviewed with patient, as well as possible need to travel to have diagnostic services. Patient voiced understanding. Patient seen on [employer] Video Visit platform. Location of patient: [place] I have communicated my name and active licensure. The patient's identity and physical location were verified at the time of this visit. 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 CC: Infertility HPI: Shaheed is a who is trying to conceive. She is to her 54 year old . Patient would like to have another baby and is concerned about ability to get due to 's age. Reports that they had been trying for a year, but recently took a break. Delivered daughter April 2021. Presented at 21 weeks with headaches and severe range blood pressures. Started on Magnesium and transferred to [facility] where blood pressures were normal. 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 Had lumbar puncture. Opening pressure was elevated. Was put on Diamox during . She was told her symptoms were caused by the rapid weight gain during . She had to have a c/s under general surgery at 39w1d. She is managed by the headache clinic (Dr. Palacios) for her headaches and is currently taking Topamax. She has a history of chronic thrombocytosis, managed by her PCP. Her periods are regular. Had suspected endometritis. ROS MGMT ANALYST: + infertility PE General: well appearing 24 year old female in no apparent distress Neuro: Alert and Oriented x3 Psych: Mood normal, affect normal, speech non pressured A/P ASSESSMENT/PLAN: 1. Desire for - ICD9: V26.9, ICD10: Z31.9 (primary diagnosis) 2. Infertility management - ICD9: V26.9, ICD10: Z31.9 - PNV - Discussed high risk . Recommend MFM preconception consult. - Labs and ultrasound ordered - Discussed semen analysis for - Follow up with physician or CHRIS for further management I spent a total of 15 minutes on the date of the service which included preparing to see the patient, [id number] patient care, completing clinical documentation, obtaining and/or reviewing separately obtained history, counseling and educating the patient/family/caregiver, and ordering medications, tests, or procedures.[facility]06-19-2025 History of Present illness Narrative* Jose G Taylor APRN.CRITICAL CARE EDUCATOR - 08/05/2024 7:01 AM EDT OGI VIRTUAL VISIT Virtual limitations reviewed with patient, as well as possible need to travel to have diagnostic services. Patient voiced understanding. Patient seen on [employer] Video Visit platform. Location of patient: [place] I have communicated my name and active licensure. The patient's identity and physical location wereverified at the time of this visit. 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 CC: Infertility HPI: Shaheed is a who is trying to conceive. She is to her 54 year old . Patient would like to have another baby and is concerned about ability to get due to 's age. Reports that they had been trying for a year, but recently took a break. Delivered daughter April 2021. Presented at 21 weeks with headaches and severe range blood pressures. Started on Magnesium and transferred to [facility] where blood pressures were normal. 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 Hadlumbar puncture. Opening pressure was elevated. Was put on Diamox during . She was told her symptoms were caused by the rapid weight gain during . She had to have a c/s under general surgery at 39w1d. She is managed by the headache clinic (Dr. Palacios) for her headaches and is currently taking Topamax. She has a history of chronic thrombocytosis, managed by her PCP. Her periods are regular. Had suspected endometritis. ROS MGMT ANALYST: + infertility PE General: well appearing 24 year old female in no apparent distress Neuro: Alert and Oriented x3 Psych: Mood normal, affect normal, speech non pressured A/P ASSESSMENT/PLAN: 1. Desire for - ICD9: V26.9, ICD10: Z31.9 (primary diagnosis) 2. Infertility management - ICD9: V26.9, ICD10: Z31.9 - PNV - Discussed high risk . Recommend MFM preconception consult. - Labs and ultrasound ordered - Discussed semen analysis for - Follow up with physician or CHRIS for further management I spent a total of 15 minutes on the date of the service which included preparing to see the patient, [id number] patient care, completing clinical documentation, obtaining and/or reviewing separately obtained history, counseling and educating the patient/family/caregiver, and ordering medications, tests, or procedures. documented in this encounterUniversity [facility]06-18-[facility] Telephone encounter Note * Telephone Encounter - Parisa Jasso LPN - 08/04/2024 11:37 AM EDT Please see pt's message. Parisa Jasso LPN [facility]06-18-2025 Miscellaneous Notes* Telephone Encounter - Parisa Jasso LPN - 08/04/2024 11:37 AM EDT Please see pt's message. Parisa Jasso LPN documented in this encounterUniversity Hospitals [facility]06-17-2025 Telephone encounter Note * Telephone Encounter - Staci Teixeira - 08/03/2024 3:26 PM EDT Spoke with patient and scheduled lab and ov Staci Teixeira [facility]06-17-2025 Miscellaneous Notes* Telephone Encounter - Staci Teixeira - 08/03/2024 3:26 PM EDT Spoke with patient and scheduled lab and ov Staci Teixeira * Telephone Encounter - Amaya Ovalle - 07/22/2024 2:06 PM EDT Patient informed. She will call back when she has her work schedule to schedule appointments in 2 months. Lab - CBC/Iron studies/Sed rate/CRP OV week later with Dr. Camarlilo * Telephone Encounter - Liza Camarillo DO - 07/22/2024 1:50 PM EDT Can let her know iron levels are okay. CBC/Iron studies/Sed rate/CRP then OV in about 2 months. Liza Camarillo DO documented in this encounterUniversity Hospitals [facility]06-05-2025 Telephone encounter Note * Telephone Encounter - Amaya Ovalle - 07/22/2024 2:06 PM EDT Patient informed. She will call back when she has her work schedule to schedule appointments in 2 months. Lab - CBC/Iron studies/Sed rate/CRP OV week later with Dr. Camarillo [facility] Work Phone: [phone]) 265-361506-05-2025 Telephone encounter Note* Telephone Encounter - Liza Camarillo DO - 07/22/2024 1:50 PM EDT Can let her know iron levels are okay. CBC/Iron studies/Sed rate/CRP then OV in about 2 months. Liza Camarillo DO [facility] Work Phone: 1(627) 183-540606-04-2025 NoteHNO ID: [id number] Author: JACOB MENJIVAR LPN Service: ? Author Type: LICENSED NURSE Type: Progress Notes Filed: 2024 15:54 Note Text: Patient identified by name and date of . Shaheed Pastoriott is here for her HPV Gardasil vaccination, injection # one of the series. Patient ?No Gardasil injection was given without incident. See immunizations for details of immunizations administered today. VIS sheet provided: Yes Patient advised to follow up in 2 months from the 1st injection Provider Dr. Vandana Wade was present in office at time of injection. [facility] History of Present illness Narrative* Jacob Menjivar LPN - 2024 3:34 PM EDT Patient identified by name and date of . Shaheed Vivar Renetta is here for her HPV Gardasil vaccination, injection # one of the series. Patient ?No Gardasil injection was given without incident. See immunizations for details of immunizations administered today. VIS sheet provided: Yes Patient advised to follow up in 2 months from the 1st injection Provider Dr. Vandana Wade was present in office at time of injection. 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 Shaheed is a 24 year old who presents for an annual gynecologic exam without complaints. Not currently trying for at this time. Still get period: Yes, 06/26/2024 cycles 29-30 days with 5-7 days flow Bleeding amount bothersome: No Bleeding between periods: No Period symptoms: Acne; Breast tenderness; Cramps; Mood change; Pelvic pain control frequency: Never HPV vaccine: No; HPV:N/A Last pap smear: never Last mammogram: never OB History Gravida1 Para1 Term1 Preterm0 AB0 Living1 SAB0 IAB0 Ectopic0 Multiple0 Live Births1 Pediatric Neuropsychologist History LMP: 06/26/2024, Having periods Age at Menarche: 12 Age at First : Age at Menopause: Pediatric Neuropsychologist History Comments: Sexual Activity: Yes; Male Contraception: Condom Menstrual Tracking History Flowsheet Row Office Visit from 2024 in OB/Gynecology Period Cycle (Days) 6 Period Duration (Days) 6 Menstrual Flow Moderate PAST MEDICAL HISTORY Diagnosis Date Attention deficit hyperactivity disorder (ADHD), combined type 12/14/2014 Class 2 obesity due to excess calories without serious comorbidity with body mass index (BMI) of 37.0 to 37.9 in adult Elevated hemoglobin A1c 05/03/2022 PANCHO (generalized anxiety disorder) 05/02/2022 Hyperlipidemia, mixed 05/03/2022 Major depressive disorder with single episode 05/02/2022 Oppositional defiant disorder 11/07/2007 JUAN M (obstructive sleep apnea) 05/25/2024 Seeing [facility] 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 Pseudotumor cerebri 07/04/[address] Andrew Seasonal allergies Thrombocytosis 05/03/2022 Chronic since 2003 (500-550) Vitamin D deficiency 05/25/2024 PAST SURGICAL HISTORY Procedure Laterality Date SECTION HX 05/02/2021 NONE PAST SURGICAL HISTORY OF 07/20/[place] teeth [place] FAMILY HISTORY Problem Relation Age of Onset other (Other) Mother restless leg Lipids Father Diabetes Maternal Grandmother Hypertension Maternal Grandmother other (sleep apnea) Maternal Grandmother Hypertension Maternal Grandfather other (sleep apnea) Maternal Grandfather Skin Cancer Maternal Grandfather Colon Cancer Paternal Grandmother Lipids Paternal Grandfather Diabetes Paternal Grandfather SOCIAL HISTORY Social History Tobacco Use Smoking status: Never Passive exposure: Never Smokeless tobacco: Never Vaping Use Vaping status: Never Used Substance Use Topics Alcohol use: No Drug use: No REVIEW OF SYSTEMS Abdomen: No abdominal pain, nausea, vomiting, diarrhea, or constipation. No bloating, early satiety, indigestion, or increased flatulence. Bladder: No dysuria, gross hematuria, urinary frequency, urinary urgency, or incontinence. Breast: No breast lumps, nipple d/c, overlying skin changes, redness or skin retraction. Allergies and current medication updated:Yes SENSITIVE EXAM: The sensitive examination was discussed with the Patient or Patient's Authorized Vocational Teacher. As applicable, any other physician, advance practice provider, medical student, or other health professional student that will be observing or involved in the sensitive examination for educational or training purposes was discussed with the Patient or Authorized Vocational Teacher. The Patient or Authorized Vocational Teacher has agreed to proceed with the sensitive examination. (Sensitive examination includes inspection and/or palpation of the breasts, pelvis, prostate and anorectal regions). EXAM: BP 130/78 Ht 5' 6.142 (1.68m) Wt 266 lb (120.7kg) LMP 06/26/2024 BMI 42.75 kg/(m^2). GENERAL: pleasant, female in no apparent distress HEENT: Normocephalic, atraumatic, mucus membranes moist, and no lesions NECK: Supple, full range of motion, no adenopathy, and thyroid normal DERMATOLOGY: Normal, without lesions, non-icteric, and non-hirsute BREAST: soft, non-tender, symmetric, no dominant mass, normal nipple-areolar complex, no lymphadenopathy, and no nipple discharge CHEST: Normal inspiratory effort ABDOMEN: soft, non-tender, and no masses PELVIC: external genitalia normal, normal Bartholin's glands, urethra, Perris's glands, no vulvar lesions, no cervical lesions, good vaginal support, physiologic discharge present, normal appearing perineal body and perianal region + healing folliculitis/scarring noted to mons pubis BIMANUAL: uterus normal size, shape and consistency, no adnexal masses, and non- tender Limited due to habitus. RECTOVAGINAL: deferred. NEURO: alert and oriented x3,exam grossly non-focal EXTREMITIES: normal ASSESSMENT/PLAN: 1) Health maintenance: Pap done with reflex HPV. Mammogram starting age 40. Nutrition, exercise and routine health maintenance exams reviewed. HPV vaccine: first dose today 2) Contraception: abstinence at this time, condoms when sexually active. 3) STD screening: Accepted STD check for Gonorrhea and Chlamydia. 4) Follow up one year or sooner as needed Jose G Taylor APRN.BING documented in this encounterUniversity [facility]als [facility]06-04-2025 Instructions* Patient Instructions* Jacob Menjivar LPN - 2024 3:29 PM EDT A 3-dose schedule is recommended for people who get the first dose on or after their 15th birthday,and for people with certain immunocompromising conditions. In a 3-dose series, the second dose should be given 1-2 months after the first dose, and the third dose should be given 6 months after the first dose (0, 1-2, 6-month schedule). The minimum intervals are 4 weeks between the first and second dose, 12 weeks between the second and third doses, and 5 months between the first and third doses. If a vaccine dose is administered after a shorter interval, it should be re-administered after another minimum interval has elapsed sincethe most recent dose. If the vaccination schedule is interrupted, vaccine doses do not need to be repeated (no maximum interval). Gardasil Gardasil is a vaccine to protect against Human Papillomavirus (HPV) types 6, 11, 16, 18, 31,33,45, 52, 58. These viruses cause cancer and precancerous lesions on the cervix (opening between vagina and uterus), in the vagina and on the vulva (skin around the outside of the vagina) as well as genitalwarts. The vaccine cannot cause these diseases and cannot treat them if already present. Gardasil works best if given before contact with HPV. Most people are exposed to HPV soon after starting sexual activity. The vaccine is recommended between the ages of 9 and 45. Gardasil does not protect against all strains of HPV. Women who receive the vaccine still need to have regular pelvic exams and cervical cancer screening with the pap smear. You should ask your doctor if Gardasil is right for you if you have a weakened immune system, a bleeding disorder, plan to become soon or have a current illness causing fever. Gardasil is not recommended for women. You should be sure your doctor is aware of any allergies you have and all medications and herbal supplements you take. Gardasil is given to those ages 9-14 in 2 doses at 0 and 8 months. In ages 15- 45, three injections are given at 0,2,6 months. Common side effects include pain, redness, itching and swelling at the injection site, nausea, fever, dizziness and fainting. Rare but potentially serious reactions have been reported. These include allergic reaction, swollen glands, joint and muscle pain, weakness and Guillain-Morris syndrome. documented in this encounterUniversity Hospitals Beach[facility]06-04-2025 NoteHNO ID: [id number] Author: JOSE G TAYLOR APRN.BING Service: ? Author Type: Nurse Practitioner Type: Progress Notes Filed: 2024 15:54 Note Text: Patient declined wireless development managerKate David is a 24 year old who presents for an annual gynecologic exam without complaints. Not currently trying for at this time. Still get period: Yes, 06/26/2024 cycles 29-30 days with 5-7 days flow Bleeding amount bothersome: No Bleeding between periods: No Period symptoms: Acne; Breast tenderness; Cramps; Mood change; Pelvic pain control frequency: Never HPV vaccine: No; HPV:N/A Last pap smear: never Last mammogram: never OB History Gravida1 Para1 Term1 Preterm0 AB0 Living1 SAB0 IAB0 Ectopic0 Multiple0 Live Births1 Pediatric Neuropsychologist History LMP: 06/26/2024, Having periods Age at Menarche: 12 Age at First : Age at Menopause: Pediatric Neuropsychologist History Comments: Sexual Activity: Yes; Male Contraception: Condom Menstrual Tracking History Flowsheet Row Office Visit from 2024 in OB/Gynecology Period Cycle (Days) 6 Period Duration (Days) 6 Menstrual Flow Moderate PAST MEDICAL HISTORY Diagnosis Date Attention deficit hyperactivity disorder (ADHD), combined type 12/14/2014 Class 2 obesity due to excess calories without serious comorbidity with body mass index (BMI) of 37.0 to 37.9 in adult Elevated hemoglobin A1c 05/03/2022 PANCHO (generalized anxiety disorder) 05/02/2022 Hyperlipidemia, mixed 05/03/2022 Major depressive disorder with single episode 05/02/2022 Oppositional defiant disorder 11/07/2007 JUAN M (obstructive sleep apnea) 05/25/2024 Seeing [facility]. 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 Pseudotumor cerebri 07/04/[address] Andrew Seasonal allergies Thrombocytosis 05/03/2022 Chronic since 2003 (500-550) Vitamin D deficiency 05/25/2024 PAST SURGICAL HISTORY Procedure Laterality Date SECTION HX 05/02/2021 NONE PAST SURGICAL HISTORY OF 07/20/2024 [place] teeth [place] FAMILY HISTORY Problem Relation Age of Onset other (Other) Mother restless leg Lipids Father Diabetes Maternal Grandmother Hypertension Maternal Grandmother other (sleep apnea) Maternal Grandmother Hypertension Maternal Grandfather other (sleep apnea) Maternal Grandfather Skin Cancer Maternal Grandfather Colon Cancer Paternal Grandmother Lipids Paternal Grandfather Diabetes Paternal Grandfather SOCIAL HISTORY Social History Tobacco Use Smoking status: Never Passive exposure: Never Smokeless tobacco: Never Vaping Use Vaping status: Never Used Substance Use Topics Alcohol use: No Drug use: No REVIEW OF SYSTEMS Abdomen: No abdominal pain, nausea, vomiting, diarrhea, or constipation. No bloating, early satiety, indigestion, or increased flatulence. Bladder: No dysuria, gross hematuria, urinary frequency, urinary urgency, or incontinence. Breast: No breast lumps, nipple d/c, overlying skin changes, redness or skin retraction. Allergies and current medication updated:Yes SENSITIVE EXAM: The sensitive examination was discussed with the Patient or Patient's Authorized Vocational Teacher. As applicable, any other physician, advance practice provider, medical student, or other health professional student that will be observing or involved in the sensitive examination for educational or training purposes was discussed with the Patient or Authorized Vocational Teacher. The Patient or Authorized Vocational Teacher has agreed to proceed with the sensitive examination. (Sensitive examination includes inspection and/or palpation of the breasts, pelvis, prostate and anorectal regions). EXAM: BP 130/78 Ht 5' 6.142 (1.68m) Wt 266 lb (120.7kg) LMP 06/26/2024 BMI 42.75 kg/(m2). GENERAL: pleasant, female in no apparent distress HEENT: Normocephalic, atraumatic, mucus membranes moist, and no lesions NECK: Supple, full range of motion, no adenopathy, and thyroid normal DERMATOLOGY: Normal, without lesions, non-icteric, and non-hirsute BREAST: soft, non-tender, symmetric, no dominant mass, normal nipple-areolar complex, no lymphadenopathy, and no nipple discharge CHEST: Normal inspiratory effort ABDOMEN: soft, non-tender, and no masses PELVIC: external genitalia normal, normal Bartholin's glands, urethra, Perris's glands, no vulvar lesions, no cervical lesions, good vaginal support, physiologic discharge present, normal appearing perineal body and perianal region + healing folliculitis/scarring noted to mons pubis BIMANUAL: uterus normal size, shape and consistency, no adnexal masses, and non-tender Limited due to habitus. RECTOVAGINAL: deferred. NEURO: alert and oriented x3,exam grossly non-focal EXTREMITIES: normal ASSESSMENT/PLAN: 1) Health maintenance: Pap done with reflex HPV. Mammogram starting age 40. Nutrition, exercise and routine health maintenance exams reviewed. HPV vaccine: first dose (more content not included)...[facility] 2024 History of Present illness Narrative* Allyn Caldwell, RT(R) - 2024 2:00 PM EDT Radiology Service Progress Note DATE OF SERVICE: 2024 TIME: 2:42 PM PATIENT IDENTITY VERIFICATION COMPLETED USING TWO (2) STANDARD IDENTIFIERS: Name and Date of confirmed by patient verbally. FALL SCREENING: Has the patient had 2 falls in the last year or 1 fall with injury or currently using an Ambulatory Assistive Device (Walker, Cane, Wheelchair, Crutches, etc.)? No PATIENT GENDER DATA: Assigned female at . status: : No status:NO. PATIENT RELEVANT IMPLANT DATA REVIEWED: Yes PATIENT PRESENTS WITH AN IMPLANTABLE OR ATTACHED SCOUTS: No ALLERGIES: Reviewed and unchanged CONTRAST ALLERGY: NO. EXAM: MRI - CONTRAST TYPE: GROUP II PERIPHERAL IV DATA: Ambulatory: A peripheral IV was started in the Left antecubital site with a Angio cath: 20 gauge. RADIOLOGY DEPARTMENT: MR; Exam(s) Completed: Head: Routine Brain [place] [facility] [place] MRA Sagittal Sinus MRV. Lavender Administered: No SIGNATURE: RT Royce(Janie) PATIENT NAME: Shaheed Jackson DATE: 2024 TIME: 2:42 PM documented in this encounterUniversity Hospitals Beachwood [facility] Center06-04-2025 NoteHNO ID: [id number] Author: ALLYN CALDWELL RT (R) Service: ? Author Type: Technologist Type: Progress Notes Filed: 2024 14:42 Note Text: Radiology Service Progress Note DATE OF SERVICE: 2024 TIME: 2:42 PM PATIENT IDENTITY VERIFICATION COMPLETED USING TWO (2) STANDARD IDENTIFIERS: Name and Date of confirmed by patient verbally. FALL SCREENING: Has the patient had 2 falls in the last year or 1 fall with injury or currently using an Ambulatory Assistive Device (Walker, Cane, Wheelchair, Crutches, etc.)? No PATIENT GENDER DATA: Assigned female at . status: : No status: NO. PATIENT RELEVANT IMPLANT DATA REVIEWED: Yes PATIENT PRESENTS WITH AN IMPLANTABLE OR ATTACHED SCOUTS: No ALLERGIES: Reviewed and unchanged CONTRAST ALLERGY: NO. EXAM: MRI - CONTRAST TYPE: GROUP II PERIPHERAL IV DATA: Ambulatory: A peripheral IV was started in the Left antecubital site with a Angio cath: 20 gauge. RADIOLOGY DEPARTMENT: MR; Exam(s) Completed: Head: Routine Brain [place] [facility] [place] MRA Sagittal Sinus MRV. [place] Administered: No SIGNATURE: PHILLIP Crane) PATIENT NAME: Shaheed Jackson DATE: 2024 TIME: 2:42 [facility]06-04-2025 History of Present illness Narrative* Liza Camarillo DO - 2024 1:00 PM EDT Patient referred by Soto Palacios APRN.CNP for leukocytosis and thrombocytosis. HPI: The patient is a 24-year-old female with past medical history as outlined below. Has a 2-year history of leukocytosis/neutrophilia and thrombocytosis. Has not previously had iron studies. Regular menses. Had HMB before her daughter's about 3 years ago. 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 Less heavy over the last year. Didn't breast feed. Recently had an IV vitamin and mineral infusion--delayed menses about 2 weeks. Not a blood donor. Very consistent with CPAP. Has been using nearly a year. Topomax helping with frequent HAs. Recently saw neurology for this. Had MRI scheduled. Tries to take Excedrin sparingly. Works at [employer] in [place]. All four wisdom teeth extracted yesterday. Needed for about a year--no symptoms. Has not previously taken oral iron. PAST MEDICAL HISTORY Diagnosis Date Attention deficit hyperactivity disorder (ADHD), combined type 12/14/2014 Class 2 obesity due to excess calories without serious comorbidity with body mass index (BMI) of 37.0 to 37.9 in adult Elevated hemoglobin A1c 05/03/2022 PANCHO (generalized anxiety disorder) 05/02/2022 Hyperlipidemia, mixed 05/03/2022 Major depressive disorder with single episode 05/02/2022 Oppositional defiant disorder 11/07/2007 JUAN M (obstructive sleep apnea) 05/25/2024 Seeing [facility] Sleep Med. 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 Pseudotumor cerebri 07/04/[address] Andrew Seasonal allergies Thrombocytosis 05/03/2022 Chronic since 2003 (500-550) Vitamin D deficiency 05/25/2024 PAST SURGICAL HISTORY Procedure Laterality Date SECTION HX 05/02/2021 NONE Cholecalciferol, Vitamin D3, (VITAMIN D-3) 50 mcg (2,000 unit) cap Take 2 capsules by mouth one time a week. On a different day then the 50,000 international unit(s) capsule PROZAC 20 mg capsule Take 20 mg by mouth once daily. hydrOXYzine HCl (ATARAX) 25 mg tablet Take 25 mg by mouth three times a day. topiramate (TOPAMAX) 100 mg tablet Take 1 tablet by mouth daily at bedtime. buPROPion XL (WELLBUTRIN XL) 300 mg 24 hr tablet Take 1 tablet by mouth once daily. Per Psych, Tranquility cholecalciferol, Vitamin D3, (VITAMIN D3) 1,250 mcg (50,000 unit) cap capsule Take 1 capsule by mouth one time a week. aspirin/acetaminophen/caffeine (EXCEDRIN MIGRAINE ORAL) Drug free headache Care L.peg desai,francis,rhamn (AZO VAGINAL HEALTH PROBIOTIC ORAL) Lacto no.76/Bifido/FOS/larch (WOMEN'S PROBIOTIC ORAL) mv-min/iron/folic/calcium/vitK (WOMEN'S MULTIVITAMIN ORAL) propranolol (INDERAL) 10 mg tablet Take 10 mg by mouth. As needed flaxseed oil (OMEGA 3 ORAL) Take by mouth as directed. CPAP/BIPAP/OTHER autoCPAP 8-10 cmH2O [facility] acetaminophen 325 mg cap Take by mouth. cetirizine (ZYRTEC) 10 mg tablet Take 1 tablet by mouth once daily. Ibuprofen 200 mg cap Take by mouth every 4 hours as needed. FOR PAIN. ALLERGIES No Known Allergies Social History Tobacco Use Smoking status: Never Passive exposure: Never Smokeless tobacco: Never Vaping Use Vaping status: Never Used Substance Use Topics Alcohol use: No Drug use: No FAMILY HISTORY Problem Relation Age of Onset other (Other) Mother restless leg Lipids Father Diabetes Maternal Grandmother Hypertension Maternal Grandmother other (sleep apnea) Maternal Grandmother Hypertension Maternal Grandfather other (sleep apnea) Maternal Grandfather Colon Cancer Paternal Grandmother Lipids Paternal Grandfather Diabetes Paternal Grandfather REVIEW OF SYSTEMS: Constitutional: No episodes of fever and night sweats. Neuro: No vertigo, dizziness and imbalance. No symptoms of neuropathy. HEENT: No recent change in voice, vision or hearing. Resp: No cough, wheeze and hemoptysis. No shortness of breath at rest. No NGUYEN. CVS: No exertional chest pain, PND, orthopnea and LE edema. GI: No reflux, n/v, change in bowel habits (alternating diarrhea and constipation) or abdominal pain. : No dysuria or gross hematuria. Endo: No hot flashes. Musculoskeletal: No bone, back, joint and muscular pain. Derm: No current rash. Heme: No unusual bleeding and unexplained bruising. Psych: Normal mood. PHYSICAL EXAM: Vitals: Blood pressure 126/78, pulse 101, temperature (!) 35.9 C (96.7 F), temperature source Temporal, height 168 cm (5' 6.14), weight 122.2 kg (269 lb 8 oz), last menstrual period 06/26/2024, [id number]%. Well-appearing and in no acute distress. EYES: Sclerae are anicteric bilaterally. CARDIOVASCULAR: Rhythm is regular. ABDOMEN: The abdomen is nondistended. No splenomegaly or hepatomegaly. No tenderness. Extremities: No swelling or edema. SKIN: No jaundice or rash. No petechiae. ASSESSMENT/PLAN: (D72.829) Leukocytosis, unspecified type (D75.839) Thrombocytosis Assessment: - 2-year history of leukocytosis and thrombocytosis. Previous history of heavy menses. Has not had iron checked previously. I explained that thrombocytosis likely related to iron deficiency and possible underlying inflammation. The leukocytosis is from underlying inflammation as well. However sinceshe just had her wisdom teeth extracted yesterday, will hold off on checking inflammatory markers. Discussed that we will check iron today. If low she will start on an oral iron supplement. Plan: - Iron studies today. - Sed rate and CRP in about a month. I spent a total of 45 minutes on the date of the service which included preparing to see the patient, [id number] patient care, completing clinical documentation, obtaining and/or reviewing separately obtained history, performing a medically appropriate examination, counseling and educating the pat ient/family/caregiver, ordering medications, tests, or procedures, communicating with other HCPs (not separately reported), and communicating results to the patient/family/caregiver. Liza Camarillo DO documented in this encounterUniversity Hospitals [facility]06-04-2025 NoteHNO ID: [id number] Author: LIZA CAMARILLO DO Service: ? Author Type: Physician Type: Progress Notes Filed: 2024 13:53 Note Text: Patient referred by Soto Palacios APRN.CNP for leukocytosis and thrombocytosis. HPI: The patient is a 24-year-old female with past medical history as outlined below. Has a 2-year history of leukocytosis/neutrophilia and thrombocytosis. Has not previously had iron studies. Regular menses. Had HMB before her daughter's about 3 years ago. 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 Less heavy over the last year. Didn't breast feed. Recently had an IV vitamin and mineral infusion--delayed menses about 2 weeks. Not a blood donor. Very consistent with CPAP. Has been using nearly a year. Topomax helping with frequent HAs. Recently saw neurology for this. Had MRI scheduled. Tries to take Excedrin sparingly. Works at [employer] in [place]. All four wisdom teeth extracted yesterday. Needed for about a year--no symptoms. Has not previously taken oral iron. PAST MEDICAL HISTORY Diagnosis Date Attention deficit hyperactivity disorder (ADHD), combined type 12/14/2014 Class 2 obesity due to excess calories without serious comorbidity with body mass index (BMI) of 37.0 to 37.9 in adult Elevated hemoglobin A1c 05/03/2022 PANCHO (generalized anxiety disorder) 05/02/2022 Hyperlipidemia, mixed 05/03/2022 Major depressive disorder with single episode 05/02/2022 Oppositional defiant disorder 11/07/2007 JUAN M (obstructive sleep apnea) 05/25/2024 Seeing [facility] Sleep Med. 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 Pseudotumor cerebri 07/04/[address] Andrew Seasonal allergies Thrombocytosis 05/03/2022 Chronic since 2003 (500-550) Vitamin D deficiency 05/25/2024 PAST SURGICAL HISTORY Procedure Laterality Date SECTION HX 05/02/2021 NONE Cholecalciferol, Vitamin D3, (VITAMIN D-3) 50 mcg (2,000 unit) cap Take 2 capsules by mouth one time a week. On a different day then the 50,000 international unit(s) capsule PROZAC 20 mg capsule Take 20 mg by mouth once daily. hydrOXYzine HCl (ATARAX) 25 mg tablet Take 25 mg by mouth three times a day. topiramate (TOPAMAX) 100 mg tablet Take 1 tablet by mouth daily at bedtime. buPROPion XL (WELLBUTRIN XL) 300 mg 24 hr tablet Take 1 tablet by mouth once daily. Per Psych, Tranquility cholecalciferol, Vitamin D3, (VITAMIN D3) 1,250 mcg (50,000 unit) cap capsule Take 1 capsule by mouth one time a week. aspirin/acetaminophen/caffeine (EXCEDRIN MIGRAINE ORAL) Drug free headache Care L.giselle,peg,francis,rhamn (AZO VAGINAL HEALTH PROBIOTIC ORAL) Lacto no.76/Bifido/FOS/larch (WOMEN'S PROBIOTIC ORAL) mv-min/iron/folic/calcium/vitK (WOMEN'S MULTIVITAMIN ORAL) propranolol (INDERAL) 10 mg tablet Take 10 mg by mouth. As needed flaxseed oil (OMEGA 3 ORAL) Take by mouth as directed. CPAP/BIPAP/OTHER autoCPAP 8-10 cmH2O [facility] acetaminophen 325 mg cap Take by mouth. cetirizine (ZYRTEC) 10 mg tablet Take 1 tablet by mouth once daily. Ibuprofen 200 mg cap Take by mouth every 4 hours as needed. FOR PAIN. ALLERGIES No Known Allergies Social History Tobacco Use Smoking status: Never Passive exposure: Never Smokeless tobacco: Never Vaping Use Vaping status: Never Used Substance Use Topics Alcohol use: No Drug use: No FAMILY HISTORY Problem Relation Age of Onset other (Other) Mother restless leg Lipids Father Diabetes Maternal Grandmother Hypertension Maternal Grandmother other (sleep apnea) Maternal Grandmother Hypertension Maternal Grandfather other (sleep apnea) Maternal Grandfather Colon Cancer Paternal Grandmother Lipids Paternal Grandfather Diabetes Paternal Grandfather REVIEW OF SYSTEMS: Constitutional: No episodes of fever and night sweats. Neuro: No vertigo, dizziness and imbalance. No symptoms of neuropathy. HEENT: No recent change in voice, vision or hearing. Resp: No cough, wheeze and hemoptysis. No shortness of breath at rest. No NGUYEN. CVS: No exertional chest pain, PND, orthopnea and LE edema. GI: No reflux, n/v, change in bowel habits (alternating diarrhea and constipation) or abdominal pain. : No dysuria or gross hematuria. Endo: No hot flashes. Musculoskeletal: No bone, back, joint and muscular pain. Derm: No current rash. Heme: No unusual bleeding and unexplained bruising. Psych: Normal mood. PHYSICAL EXAM: Vitals: Blood pressure 126/78, pulse 101, temperature (!) 35.9 ?C (96.7 ?F), temperature source Temporal, height 168 cm (5' 6.14), weight 122.2 kg (269 lb 8 oz), last menstrual period 06/26/2024, SpO2 99%. Well-appearing and in no acute distress. EYES: Sclerae are anicteric bilaterally. CARDIOVASCULAR: Rhythm is regular. ABDOMEN: The abdomen is nondistended. No splenomegaly or hepatomegaly. No tenderness. Extremities: No swelling or edema. SKIN: No jaundice or rash. No petechiae. A (more content not included)...[facility]05-14-2025 Telephone encounter Note* Telephone Encounter - Mercedes Boothe MA - 06/30/2024 8:07 AM EDT Re-faxed. Mercedes Boothe MA [facility]05-14-2025 Miscellaneous Notes* Telephone Encounter - Mercedes Boothe MA - 06/30/2024 8:07 AM EDT Re-faxed. Mercedes Boothe MA documented in this encounterUniversity Hospitals Beachwood [facility] Center05-12-2025 Telephone encounter Note * Telephone Encounter - Staci Teixeira - 06/28/2024 11:05 AM EDT Spoke with patient and scheduled on 07/[address] Camarillo, per patient request. Staci Teixeira [facility]05-12-2025 Miscellaneous Notes* Telephone Encounter - Staci Teixeira - 06/28/2024 11:05 AM EDT Spoke with patient and scheduled on 07/[address] Camarillo, per patient request. Staci Teixeira * Telephone Encounter - Reshma Morales LPN - 06/28/2024 8:01 AM EDT Leukocytosis, unspecified type [D72.829] Thrombocytosis [D75.839] Referring provider: Dr. Grimm. Ramo to schedule. Reshma Morales LPN * Telephone Encounter - Mercedes Boothe MA - 06/25/2024 4:54 PM EDT Patient notified and voiced understanding. Please review. Mercedes Boothe MA' * Telephone Encounter - Bryant Grimm MD - 06/25/2024 4:12 PM EDT Let patient know her blood work shows her white blood cells are still elevated along with her platelets. I have placed a referral for her to see hematology for an eval. Her Vit D is almost in the normal range. Cont the Vit D 50,000 international unit(s)'s once a day and advise her to take an additional 4,000 international unit(s) 's OTC another day once a day. Wouldsuggest taking it 3-4 days after the 50,000 international unit(s) capsule. documented in this encounterUniversity Hospitals [facility]05-12-2025 Telephone encounter Note * Telephone Encounter - Reshma Morales LPN - 06/28/2024 8:01 AM EDT Leukocytosis, unspecified type [D72.829] Thrombocytosis [D75.839] Referring provider: Dr. Grimm. Ramo to schedule. Reshma Morales LPN [facility]05-09-2025 Telephone encounter Note* Telephone Encounter - Mercedes Boothe MA - 06/25/2024 4:54 PM EDT Patient notified and voiced understanding. Please review. Mercedes Boothe MA' [facility]05-09-2025 Telephone encounter Note* Telephone Encounter - Bryant Grimm MD - 06/25/2024 4:12 PM EDT Let patient know her blood work shows her white blood cells are still elevated along with her platelets. I have placed a referral for her to see hematology for an eval. Her Vit D is almost in the normal range. Cont the Vit D 50,000 international unit(s)'s once a day and advise her to take an additional 4,000 international unit(s) 's OTC another day once a day. Wouldsuggest taking it 3-4 days after the 50,000 international unit(s) capsule. [facility]05-08-2025 NoteHNO ID: [id number] Author: BRYANT GRIMM MD Service: ? Author Type: Physician Type: Progress Notes Filed: 06/24/2024 15:30 Note Text: Chief Complaint Patient presents with: Blood Pressure HPI Shaheed Jackson is a 23 year old female who presents here today for Above Complaints.. Patient was last seen 05/25/2024 and was noted to have elevated BP, 138/98, 132/98. Patient her today for recheck. BP at work have been 104/84, 107/74 and 116/76. These were checked by nursing at work Past medical history, appointments, medications, allergies reviewed. Previous Medical History PAST MEDICAL HISTORY Diagnosis Date Attention deficit hyperactivity disorder (ADHD), combined type 12/14/2014 Class 2 obesity due to excess calories without serious comorbidity with body mass index (BMI) of 37.0 to 37.9 in adult Elevated hemoglobin A1c 05/03/2022 PANCHO (generalized anxiety disorder) 05/02/2022 Hyperlipidemia, mixed 05/03/2022 Major depressive disorder with single episode 05/02/2022 Oppositional defiant disorder 11/07/2007 JUAN M (obstructive sleep apnea) 05/25/2024 Seeing [facility] Sleep Med. 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 Pseudotumor cerebri 07/04/[address] Andrew Seasonal allergies Thrombocytosis 05/03/2022 Chronic since 2003 (500-550) Vitamin D deficiency 05/25/2024 Previous Surgical History PAST SURGICAL HISTORY Procedure Laterality Date SECTION HX 05/02/2021 NONE Family History FAMILY HISTORY Problem Relation Age of Onset other (Other) Mother restless leg Lipids Father Diabetes Maternal Grandmother Hypertension Maternal Grandmother other (sleep apnea) Maternal Grandmother Hypertension Maternal Grandfather other (sleep apnea) Maternal Grandfather Colon Cancer Paternal Grandmother Lipids Paternal Grandfather Diabetes Paternal Grandfather Patient Allergies ALLERGIES No Known Allergies Current Medications Current Outpatient Medications on File Prior to Visit Medication Sig PROZAC 20 mg capsule Take 20 mg by mouth once daily. hydrOXYzine HCl (ATARAX) 25 mg tablet Take 25 mg by mouth three times a day. topiramate (TOPAMAX) 100 mg tablet Take 1 tablet by mouth daily at bedtime. buPROPion XL (WELLBUTRIN XL) 300 mg 24 hr tablet Take 1 tablet by mouth once daily. Per Psych, Tranquility cholecalciferol, Vitamin D3, (VITAMIN D3) 1,250 mcg (50,000 unit) cap capsule Take 1 capsule by mouth one time a week. aspirin/acetaminophen/caffeine (EXCEDRIN MIGRAINE ORAL) Drug free headache Care L.giselle,peg,francis,rhamn ([facility] VAGINAL HEALTH PROBIOTIC ORAL) Lacto no.76/Bifido/FOS/larch (WOMEN'S PROBIOTIC ORAL) mv-min/iron/folic/calcium/vitK (WOMEN'S MULTIVITAMIN ORAL) propranolol (INDERAL) 10 mg tablet Take 10 mg by mouth. As needed flaxseed oil (OMEGA 3 ORAL) Take by mouth as directed. CPAP/BIPAP/OTHER autoCPAP 8-10 cmH2O [facility] acetaminophen 325 mg cap Take by mouth. cetirizine (ZYRTEC) 10 mg tablet Take 1 tablet by mouth once daily. Ibuprofen 200 mg cap Take by mouth every 4 hours as needed. FOR PAIN. No current facility-administered medications on file prior to visit. Social History Social History Tobacco Use Smoking status: Never Passive exposure: Never Smokeless tobacco: Never Vaping Use Vaping status: Never Used Substance Use Topics Alcohol use: No Drug use: No Review of Symptoms REVIEW OF SYSTEMS RESPIRATORY: Negative for wheezing, COPD, dyspnea or shortness of breath CARDIOVASCULAR: Negative for chest pain, leg swelling, hypertension, CHF or palpitations NEURO: No history of headaches, syncope, paralysis, seizures or tremors. Since being on the Topamax her headache's have been none existent. EXAM: BP 126/88 Pulse 112 Ht 166.4 cm (5' 5.5) Wt 120.7 kg (266 lb) LMP 05/22/2024 (Approximate) SpO2 98% BMI 43.59 kg/m? BP 134/92 Pulse 112 Ht 166.4 cm (5' 5.5) Wt 120.7 kg (266 lb) LMP 05/22/2024 (Approximate) SpO2 98% BMI 43.59 kg/m? BP 116/76 Pulse 112 Ht 166.4 cm (5' 5.5) Wt 120.7 kg (266 lb) LMP 05/22/2024 (Approximate) SpO2 98% BMI 43.59 kg/m? General Appearance: Well appearing, alert, in no acute distress, well-hydrated, well nourished. and Morbidly obese. Lungs: Lungs clear to auscultation. No wheezing, rhonchi, rales.. Heart: RRR without murmur, gallop, or rubs. No ectopy. Health Maintenance List GC (Gonorrhea) Screening (18-24) Never done HIV Screening Never done Chlamydia Screening (18-) Never done Cervical Cancer Screening Never done Covid-19 Vaccine(2023- season) due on 11/06/2024 DTaP,Tdap,Td Vaccine(7 - Td or Tdap) due on 10/03/2024 Hepatitis B Vaccine Completed Hepatitis C Screening Completed HPV Vaccine Addressed Influenza Vaccine Discontinued Meningococcal B Vaccine Discontinued Data reviewed A/P ASSESSMENT/PLAN: 1. Elevated BP without diagnosis of hypertension - ICD9: 796.2, ICD10: R03 (more content not included)...[facility]05-08-2025 History of Present illness Narrative* Bryant Grimm MD - 06/24/2024 2:46 PM EDT Chief Complaint Patient presents with: Blood Pressure HPI Shaheed Jackson is a 23 year old female who presents here today for Above Complaints.. Patient was last seen 05/25/2024 and was noted to have elevated BP, 138/98, 132/98. Patient her todayfor recheck. BP at work have been 104/84, 107/74 and 116/76. These were checked by nursing at work Past medical history, appointments, medications, allergies reviewed. Previous Medical History PAST MEDICAL HISTORY Diagnosis Date Attention deficit hyperactivity disorder (ADHD), combined type 12/14/2014 Class 2 obesity due to excess calories without serious comorbidity with body mass index (BMI) of 37.0 to 37.9 in adult Elevated hemoglobin A1c 05/03/2022 PANCHO (generalized anxiety disorder) 05/02/2022 Hyperlipidemia, mixed 05/03/2022 Major depressive disorder with single episode 05/02/2022 Oppositional defiant disorder 11/07/2007 JUAN M (obstructive sleep apnea) 05/25/2024 Seeing [facility] Sleep Med. 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 Pseudotumor cerebri 07/04/[address] Andrew Seasonal allergies Thrombocytosis 05/03/2022 Chronic since 2003 (500-550) Vitamin D deficiency 05/25/2024 Previous Surgical History PAST SURGICAL HISTORY Procedure Laterality Date SECTION HX 05/02/2021 NONE Family History FAMILY HISTORY Problem Relation Age of Onset other (Other) Mother restless leg Lipids Father Diabetes Maternal Grandmother Hypertension Maternal Grandmother other (sleep apnea) Maternal Grandmother Hypertension Maternal Grandfather other (sleep apnea) Maternal Grandfather Colon Cancer Paternal Grandmother Lipids Paternal Grandfather Diabetes Paternal Grandfather Patient Allergies ALLERGIES No Known Allergies Current Medications Current Outpatient Medications on File Prior to Visit Medication Sig PROZAC 20 mg capsule Take 20 mg by mouth once daily. hydrOXYzine HCl (ATARAX) 25 mg tablet Take 25 mg by mouth three times a day. topiramate (TOPAMAX) 100 mg tablet Take 1 tablet by mouth daily at bedtime. buPROPion XL (WELLBUTRIN XL) 300 mg 24 hr tablet Take 1 tablet by mouth once daily. Per Psych, Tranquility cholecalciferol, Vitamin D3, (VITAMIN D3) 1,250 mcg (50,000 unit) cap capsule Take 1 capsule by mouth one time a week. aspirin/acetaminophen/caffeine (EXCEDRIN MIGRAINE ORAL) Drug free headache Care L.peg desai,francis,rhamn (AZO VAGINAL HEALTH PROBIOTIC ORAL) Lacto no.76/Bifido/FOS/larch (WOMEN'S PROBIOTIC ORAL) mv-min/iron/folic/calcium/vitK (WOMEN'S MULTIVITAMIN ORAL) propranolol (INDERAL) 10 mg tablet Take 10 mg by mouth. As needed flaxseed oil (OMEGA 3 ORAL) Take by mouth as directed. CPAP/BIPAP/OTHER autoCPAP 8-10 cmH2O [facility] acetaminophen 325 mg cap Take by mouth. cetirizine (ZYRTEC) 10 mg tablet Take 1 tablet by mouth once daily. Ibuprofen 200 mg cap Take by mouth every 4 hours as needed. FOR PAIN. No current facility-administered medications on file prior to visit. Social History Social History Tobacco Use Smoking status: Never Passive exposure: Never Smokeless tobacco: Never Vaping Use Vaping status: Never Used Substance Use Topics Alcohol use: No Drug use: No Review of Symptoms REVIEW OF SYSTEMS RESPIRATORY: Negative for wheezing, COPD, dyspnea or shortness of breath CARDIOVASCULAR: Negative for chest pain, leg swelling, hypertension, CHF or palpitations NEURO: No history of headaches, syncope, paralysis, seizures or tremors. Since being on the [facility] headache's have been none existent. EXAM: BP 126/88 Pulse 112 Ht 166.4 cm (5' 5.5) Wt 120.7 kg (266 lb) LMP 05/22/2024 (Approximate) SpO2 98% BMI 43.59 kg/m BP 134/92 Pulse 112 Ht 166.4 cm (5' 5.5) Wt 120.7 kg (266 lb) LMP 05/22/2024 (Approximate) SpO2 98% BMI 43.59 kg/m BP 116/76 Pulse 112 Ht 166.4 cm (5' 5.5) Wt 120.7 kg (266 lb) LMP 05/22/2024 (Approximate) SpO2 98% BMI 43.59 kg/m General Appearance: Well appearing, alert, in no acute distress, well-hydrated, well nourished. andMorbidly obese. Lungs: Lungs clear to auscultation. No wheezing, rhonchi, rales.. Heart: RRR without murmur, gallop, or rubs. No ectopy. Health Maintenance List GC (Gonorrhea) Screening (18-24) Never done HIV Screening Never done Chlamydia Screening (18-) Never done Cervical Cancer Screening Never done Covid-19 Vaccine(2023-25 season) due on 11/06/2024 DTaP,Tdap,Td Vaccine(7 - Td or Tdap) due on 10/03/2024 Hepatitis B Vaccine Completed Hepatitis C Screening Completed HPV Vaccine Addressed Influenza Vaccine Discontinued Meningococcal B Vaccine Discontinued Data reviewed A/P ASSESSMENT/PLAN: 1. Elevated BP without diagnosis of hypertension - ICD9: 796.2, ICD10: R03.0 - Encouraged dietary sodium restriction/DASH diet - Recommended regular aerobic exercise. - Recommend home blood pressure monitoring, to bring results in on next visit - Goal of BP <130/80 - BP checked out of the office by a nurse is very good. - patient to monitor and advised I want her staying below 130/85 Patient to let me know if any increased BP otherwise will see at next appt. F/u WAE 11/2024. Bryant Grimm MD documented in this encounterUniversity [facility]als [facility]04-15-2025 NoteHNO ID: [id number] Author: ANURADHA BOWLING MA Service: ? Author Type: Ct Mri Technologist Type: Progress Notes Filed: 06/01/2024 11:53 Note Text: Pt scheduled for BP check. Pt stated that the nurse at work checked her BP today and it was 108/84. Will have this checked again by nurse on . Just FYI. Anuradha Bowling [facility]04-10-2025 Telephone encounter Note * Telephone Encounter - Parisa Jasso LPN - 05/27/2024 4:16 PM EDT Pt called in regarding this. Please see TE from 05/27/24. These were faxed as requested. Parisa Jasso LPN [facility]04-10-2025 Miscellaneous Notes* Telephone Encounter - Parisa Jasso LPN - 05/27/2024 4:16 PM EDT Pt called in regarding this. Please see TE from 05/27/24. These were faxed as requested. Parisa Jasso LPN documented in this encounterUniversity Hospitals [facility]04-10-2025 Telephone encounter Note * Telephone Encounter - Parisa Jasso LPN - 05/27/2024 2:42 PM EDT Pt calling requesting to have a copy of her labs completed 05/18/24 faxed to [place] [id number] ATTN: Shaheed.Fax number [phone]. Copy of labs faxed as requested. Parisa Jasso LPN [facility]04-10-2025 Miscellaneous Notes* Telephone Encounter - Parisa Jasso LPN - 05/27/2024 2:42 PM EDT Pt calling requesting to have a copy of her labs completed 05/18/24 faxed to [place] [id number] ATTN: Shaheed.Fax number [phone]. Copy of labs faxed as requested. Parisa Jasso LPN documented in this encounterUniversity Hospitals Beachwood [facility] Center04-08-2025 Instructions* Patient Instructions* Bryant Grimm MD - 05/25/2024 11:02 AM EDT Please get none fasting labs on or after 06/24/2024 Please get labs and urine test done on or after 11/12/2024 prior to your next visit. documented in this encounterUniversity [facility]als [facility]04-08-2025 NoteHNO ID: [id number] Author: BRYANT GRIMM MD Service: ? Author Type: Physician Type: Progress Notes Filed: 05/25/2024 19:39 Note Text: Chief Complaint Patient presents with: Follow Up HPI Shaheed Jackson is a 23 year old female who presents here today for follow up. Patient has been having elevated liver functions. . Patient signed up at work for weight loss program. Exercise/diet and weight loss medication, waiting insurance for coverage. My chart message I am sending this, so I don?t forget. Would it be possible for you to write up a letter stating my recent diagnosis with the liver and blood results? I am wanting to get my wisdom teeth out in July, and with the elevated levels they were a little concerned. They just wanna make sure you are okay with proceeding. we can discuss more at my appointment on Friday if needed. If you could, fax it to [facility]. There fax is [phone] Patient continues to do well on the Effexor and Wellbutrin. She is seeing Psych now for the management of her mental health issues. Patient seeing neuro for her pseudotumor cerebri. Patient has been working on increased physical activity. No new issues or concerns. Past medical history, appointments, medications, allergies reviewed. Previous Medical History PAST MEDICAL HISTORY Diagnosis Date Attention deficit hyperactivity disorder (ADHD), combined type 12/14/2014 Class 2 obesity due to excess calories without serious comorbidity with body mass index (BMI) of 37.0 to 37.9 in adult Elevated hemoglobin A1c 05/03/2022 PANCHO (generalized anxiety disorder) 05/02/2022 Hyperlipidemia, mixed 05/03/2022 Major depressive disorder with single episode 05/02/2022 Oppositional defiant disorder 11/07/2007 Paradoxical insomnia 09/30/2018 using meletonin. Pseudotumor cerebri 07/04/[address] Andrew Seasonal allergies Thrombocytosis 05/03/2022 Chronic since 2003 (500-550) Previous Surgical History PAST SURGICAL HISTORY Procedure Laterality Date SECTION HX 05/02/2021 NONE Family History FAMILY HISTORY Problem Relation Age of Onset other (Other) Mother restless leg Lipids Father Diabetes Maternal Grandmother Hypertension Maternal Grandmother other (sleep apnea) Maternal Grandmother Hypertension Maternal Grandfather other (sleep apnea) Maternal Grandfather Colon Cancer Paternal Grandmother Lipids Paternal Grandfather Diabetes Paternal Grandfather Patient Allergies ALLERGIES No Known Allergies Current Medications Current Outpatient Medications on File Prior to Visit Medication Sig aspirin/acetaminophen/caffeine (EXCEDRIN MIGRAINE ORAL) Drug free headache Care peg Cadena jensen, rhamn ([facility] PROBIOTIC ORAL) Lacto no.76/Bifido/FOS/larch (WOMEN'S PROBIOTIC ORAL) mv-min/iron/folic/calcium/vitK (WOMEN'S MULTIVITAMIN ORAL) topiramate (TOPAMAX) 25 mg tablet Take 1 tablet by mouth daily at bedtime. propranolol (INDERAL) 10 mg tablet Take 10 mg by mouth. As needed venlafaxine ER (EFFEXOR XR) 75 mg 24 hr capsule Take 1 capsule by mouth once daily. Take with the 150mg capsule for total daily dose of 225mg. venlafaxine ER (EFFEXOR XR) 150 mg 24 hr capsule Take 1 capsule by mouth once daily. Take with the 75mg capsule for total daily dose of 225mg. buPROPion XL (WELLBUTRIN XL) 300 mg 24 hr tablet Take 1 tablet by mouth once daily. flaxseed oil (OMEGA 3 ORAL) Take by mouth as directed. CPAP/BIPAP/OTHER autoCPAP 8-10 cmH2O [facility] acetaminophen 325 mg cap Take by mouth. cetirizine (ZYRTEC) 10 mg tablet Take 1 tablet by mouth once daily. Ibuprofen 200 mg cap Take by mouth every 4 hours as needed. FOR PAIN. No current facility-administered medications on file prior to visit. Social History Social History Tobacco Use Smoking status: Never Passive exposure: Never Smokeless tobacco: Never Vaping Use Vaping status: Never Used Substance Use Topics Alcohol use: No Drug use: No Review of Symptoms REVIEW OF SYSTEMS GENERAL: No weight loss, malaise or fevers NECK: Negative for lumps, goiter, pain and significant neck swelling RESPIRATORY: Negative for cough, hemoptysis, wheezing, COPD, dyspnea or shortness of breath CARDIOVASCULAR: Negative for chest pain, leg swelling, hypertension, CHF or palpitations GI: No nausea, vomiting, or diarrhea and No heartburn or reflux symptoms NEURO: No history of, syncope, paralysis, seizures or tremors./ headache's have decreased since starting on the Topamax. No URI symptoms or UTI symptoms on review. EXAM: BP 138/98 Pulse 96 Resp 16 Wt 121.1 kg (267 lb) LMP 05/22/2024 (Approximate) BP 132/98 Pulse 96 Resp 16 Wt 121.1 kg (267 lb) LMP 05/22/2024 (Approximate) At work her BP has been running about the same. Is under some stress due to two recent deaths in her family. Last 8 Encounter BP Readings: Date: BP: 05/25/2024 132/98 (more content not included)...[facility]04-08-2025 History of Present illness Narrative* Bryant Grimm MD - 05/25/2024 10:11 AM EDT Images from the original note were not included. Chief Complaint Patient presents with: Follow Up HPI Shaheed Jackson is a 23 year old female who presents here today for follow up. Patient has been having elevated liver functions. . Patient signed up at work for weight loss program. Exercise/diet and weight loss medication, waiting insurance for coverage. My chart message I am sending this, so I don t forget. Would it be possible for you to write up a letter stating my recent diagnosis with the liver and blood results? I am wanting to get my wisdom teeth out in July, and with the elevated levels they were a little concerned. They just wanna make sure you are okay with proceeding. we can discuss more at my appointment on Friday if needed. If you could, fax it to [facility]. There fax is [phone] Patient continues to do well on the Effexor and Wellbutrin. She is seeing Psych now for the management of her mental health issues. Patient seeing neuro for her pseudotumor cerebri. Patient has been working on increased physical activity. No new issues or concerns. Past medical history, appointments, medications, allergies reviewed. Previous Medical History PAST MEDICAL HISTORY Diagnosis Date Attention deficit hyperactivity disorder (ADHD), combined type 12/14/2014 Class 2 obesity due to excess calories without serious comorbidity with body mass index (BMI) of 37.0 to 37.9 in adult Elevated hemoglobin A1c 05/03/2022 PANCHO (generalized anxiety disorder) 05/02/2022 Hyperlipidemia, mixed 05/03/2022 Major depressive disorder with single episode 05/02/2022 Oppositional defiant disorder 11/07/2007 Paradoxical insomnia 09/30/2018 using meletonin. Pseudotumor cerebri 07/04/[address] Andrew Seasonal allergies Thrombocytosis 05/03/2022 Chronic since 2003 (500-550) Previous Surgical History PAST SURGICAL HISTORY Procedure Laterality Date SECTION HX 05/02/2021 NONE Family History FAMILY HISTORY Problem Relation Age of Onset other (Other) Mother restless leg Lipids Father Diabetes Maternal Grandmother Hypertension Maternal Grandmother other (sleep apnea) Maternal Grandmother Hypertension Maternal Grandfather other (sleep apnea) Maternal Grandfather Colon Cancer Paternal Grandmother Lipids Paternal Grandfather Diabetes Paternal Grandfather Patient Allergies ALLERGIES No Known Allergies Current Medications Current Outpatient Medications on File Prior to Visit Medication Sig aspirin/acetaminophen/caffeine (EXCEDRIN MIGRAINE ORAL) Drug free headache Care L.peg desai,francis,rhamn ([facility] PROBIOTIC ORAL) Lacto no.76/Bifido/FOS/larch (WOMEN'S PROBIOTIC ORAL) mv-min/iron/folic/calcium/vitK (WOMEN'S MULTIVITAMIN ORAL) topiramate (TOPAMAX) 25 mg tablet Take 1 tablet by mouth daily at bedtime. propranolol (INDERAL) 10 mg tablet Take 10 mg by mouth. As needed venlafaxine ER (EFFEXOR XR) 75 mg 24 hr capsule Take 1 capsule by mouth once daily. Take with the 150mg capsule for total daily dose of 225mg. venlafaxine ER (EFFEXOR XR) 150 mg 24 hr capsule Take 1 capsule by mouth once daily. Take with the 75mg capsule for total daily dose of 225mg. buPROPion XL (WELLBUTRIN XL) 300 mg 24 hr tablet Take 1 tablet by mouth once daily. flaxseed oil (OMEGA 3 ORAL) Take by mouth as directed. CPAP/BIPAP/OTHER autoCPAP 8-10 cmH2O [facility] acetaminophen 325 mg cap Take by mouth. cetirizine (ZYRTEC) 10 mg tablet Take 1 tablet by mouth once daily. Ibuprofen 200 mg cap Take by mouth every 4 hours as needed. FOR PAIN. No current facility-administered medications on file prior to visit. Social History Social History Tobacco Use Smoking status: Never Passive exposure: Never Smokeless tobacco: Never Vaping Use Vaping status: Never Used Substance Use Topics Alcohol use: No Drug use: No Review of Symptoms REVIEW OF SYSTEMS GENERAL: No weight loss, malaise or fevers NECK: Negative for lumps, goiter, pain and significant neck swelling RESPIRATORY: Negative for cough, hemoptysis, wheezing, COPD, dyspnea or shortness of breath CARDIOVASCULAR: Negative for chest pain, leg swelling, hypertension, CHF or palpitations GI: No nausea, vomiting, or diarrhea and No heartburn or reflux symptoms NEURO: No history of, syncope, paralysis, seizures or tremors./ headache's have decreased since starting on the Topamax. No URI symptoms or UTI symptoms on review. EXAM: BP 138/98 Pulse 96 Resp 16 Wt 121.1 kg (267 lb) LMP 05/22/2024 (Approximate) BP 132/98 Pulse 96 Resp 16 Wt 121.1 kg (267 lb) LMP 05/22/2024 (Approximate) At work her BP has been running about the same. Is under some stress due to two recent deaths in her family. Last 8 Encounter BP Readings: Date: BP: 05/25/2024 132/98 05/05/2024 128/88 11/07/2023 120/86 11/07/2023 120/86 08/15/2023 120/82 08/08/2023 136/86 07/28/2023 129/82 06/02/2023 124/81 Last 5 Encounter Wt Readings: Date: Wt: 05/25/2024 121.1 kg (267 lb) 05/05/2024 121.2 kg (267 lb 3.2 oz) 11/07/2023 117.5 kg (259 lb) 11/07/2023 117.5 kg (259 lb) 08/15/2023 118.4 kg (261 lb) General Appearance: Well appearing, alert, in no acute distress, well-hydrated, well nourished. andMorbidly obese. Neck: Supple, no adenopathy; thyroid symmetric, normal size, no bruits. Lungs: Lungs clear to auscultation. No wheezing, rhonchi, rales.. Heart: RRR without murmur, gallop, or rubs. No ectopy. Abdomen: Normal abdominal exam, Abdomen soft, non-tender. Bowel sounds normal. No masses, organomegaly. Extremities: No deformities, edema, skin discoloration, Good capillary refill. . Peripheral Pulses: Normal. Neurologic: Gait normal. Sensation grossly intact.. Health Maintenance List GC (Gonorrhea) Screening (-) Never done HIV Screening Never done Chlamydia Screening () Never done Cervical Cancer Screening Never done Covid-19 Vaccine(2023- season) due on 11/06/2024 DTaP,Tdap,Td Vaccine(7 - Td or Tdap) due on 10/03/2024 Hepatitis B Vaccine Completed Hepatitis C Screening Completed HPV Vaccine Addressed Influenza Vaccine Discontinued Meningococcal B Vaccine Discontinued Data reviewed Latest Ref Rng 05/18/2024 WBC 3.70 - 11.00 k/uL 13.06 (H) RBC 3.90 - 5.20 m/uL 4.26 Hemoglobin 11.5 - 15.5 g/dL 12.1 Hematocrit 36.0 - 46.0 % 38.2 MCV 80.0 - 100.0 fL 89.7 MCH 26.0 - 34.0 pg 28.4 MCHC 30.5 - 36.0 g/dL 31.7 RDW-CV 11.5 - 15.0 % 14.2 Platelet Count 150 - 400 k/uL 517 (H) MPV 9.0 - 12.7 fL 8.0 (L) Neut% % 62.5 Abs Neut (ANC) 1.45 - 7.50 k/uL 8.17 (H) Lymph% % 28.1 Abs Lymph 1.00 - 4.00 k/uL 3.67 [place]% % 5.9 Abs [place] <0.87 k/uL 0.77 Eosin% % 2.4 Abs Eosin <0.46 k/uL 0.31 Baso% % 0.5 Abs Baso <0.11 k/uL 0.06 Immature Gran % % 0.6 IMMATURE GRANS (ABS) <0.10 k/uL 0.08 NRBC /100 WBC 0.0 Absolute nRBC <0.01 k/uL <0.01 DTYPE Auto Color Yellow Yellow Clarity Clear Clear Glucose, Urine Negative Negative Bilirubin, Urine Negative Negative Ketones, Urine Negative Negative Specific [place], Ur 1.005 - 1.030 1.009 Hemoglobin/Blood,Ur Negative Negative pH, Urine <8.5 6.5 Protein, Urine Negative Negative Urobilinogen 0.2-1.0 EU/dL 0.2 EU/dL Nitrites Negative Negative Leukest Negative Negative WBC, Urine 0-5 /HPF 0-5 /HPF RBC, Urine 0-2 /HPF 0-2 /HPF Bacteria Negative /HPF Negative Epithelial Cells /HPF None Seen Hyaline Cast 0 /LPF 0 /LPF Total Cholesterol, Nonfasting <200 mg/dL 220 (H) Triglycerides, Nonfasting <150 mg/dL 391 (H) HDL Cholesterol, Nonfasting >39 mg/dL 27 (L) LDL Cholesterol, Nonfasting <100 mg/dL 115 (H) Non HDL Cholesterol, Nonfasting <130 mg/dL 193 (H) VLDL Cholesterol, Nonfasting <30 mg/dL 78 (H) Total Chol/HDL Ratio, Nonfasting <5.10 mg/dL 8.15 (H) LDL/HDL Ratio, Nonfasting <2.54 mg/dL 4.26 (H) Albumin 3.9 - 4.9 g/dL 4.6 Bilirubin, Total 0.2 - 1.3 mg/dL 0.2 Bilirubin, Direct <0.3 mg/dL 0.1 Alkaline Phosphatase 34 - 123 U/L 57 AST 13 - 35 U/L 33 ALT 7 - 38 U/L 54 (H) Protein, Total 6.3 - 8.0 g/dL 8.0 Culture 10,000 -<50,000 CFU/ml Normal urogenital violeta Vitamin D 25 Hydroxy 31.0 - 80.0 ng/mL 19.5 (L) PTH, Intact 15 - 65 pg/mL 25 Calcium 8.5 - 10.2 mg/dL 10.3 (H) Hep A Ab, IgM Negative Negative Hep B Core Ab, IgM Negative Negative Hep B Surface Ag Negative Negative Hep C Antibody IA Negative Negative A/P ASSESSMENT/PLAN: 1. Hyperlipidemia, mixed - ICD9: 272.2, ICD10: E78.2 (primary diagnosis) - Controlled - Counseled on healthy diet and regular exercise - Discussed need for and benefit of weight loss. BMI 43.69 kg/(m^2) 2. Elevated hemoglobin A1c - ICD9: 790.29, ICD10: R73.09 - level is down and patient working on life style changes. 3. Major depressive disorder with single episode, remission status unspecified - ICD9: 296.20, ICD10: F32.9 - on meds managed per Psych 4. PANCHO (generalized anxiety disorder) - ICD9: 300.02, ICD10: F41.1 - on meds managed per psych 5. Attention deficit hyperactivity disorder (ADHD), combined type - ICD9: 314.01, ICD10: F90.2 - as per #4 6. Oppositional defiant disorder - ICD9: 313.81, ICD10: F91.3 - as per #4 7. Pseudotumor cerebri - ICD9: 348.2, ICD10: G93.2 - on meds and managed per neuro. 8. Class 2 obesity due to excess calories without serious comorbidity with body mass index (BMI) of37.0 to 37.9 in adult - ICD9: 278.00, V85.37, ICD10: E66.812, E66.09, Z68.37 Weight increasing - Behavioral intervention and - Pharmacological intervention - patient may be starting Trulicity or Mounjaro soon. 9. Thrombocytosis - ICD9: 238.71, ICD10: D75.839 - chronic stable 10. Elevated LFTs - ICD9: 790.6, ICD10: R79.89 - improved. 11. WHITNEY (nonalcoholic steatohepatitis) - ICD9: 571.8, ICD10: K75.81 FIB-4 Calculation: 0.18 at 05/18/2024 4:47 PM Calculated from: SGOT/AST: 33 U/L at 05/18/2024 4:47 PM SGPT/ALT: 54 U/L at 05/18/2024 4:47 PM Platelets: 517 k/uL at 05/18/2024 4:47 PM Age: 23 years 12. Altered bowel habits - ICD9: 787.99, ICD10: R19.4 - consult gastro 13. Chronic constipation - ICD9: 564.00, ICD10: K59.09 - consult gastro 14. Hypercalcemia - ICD9: 275.42, ICD10: E83.52 - stable will monitor. Normal PTH 15. Vitamin D deficiency - ICD9: 268.9, ICD10: E55.9 - will replace - check Vit D in a month 16. Leukocytosis, unspecified type - ICD9: 288.60, ICD10: D72.829 - recheck CBC in a month. 18. Elevated blood pressure reading without diagnosis of hypertension - ICD9: 796.2, ICD10: R03.0 - Encouraged dietary sodium restriction/DASH diet - Recommended regular aerobic exercise. - Recommend home blood pressure monitoring, to bring results in on next visit - Discussed need and benefit for weight loss. - Recheck in 3 weeks, sooner if needed. - Goal of BP <130/80 Requested Prescriptions Signed Prescriptions Disp Refills topiramate (TOPAMAX) 50 mg tablet Sig: Take 1 tablet by mouth daily at bedtime. buPROPion XL (WELLBUTRIN XL) 300 mg 24 hr tablet 90 tablet 1 Sig: Take 1 tablet by mouth once daily. Per Psych, Tranquility venlafaxine ER (EFFEXOR XR) 150 mg 24 hr capsule 90 capsule 1 Sig: Take 1 capsule by mouth once daily. Take with the 75mg capsule for total daily dose of 225mg. Per Psych, Tranquility venlafaxine ER (EFFEXOR XR) 75 mg 24 hr capsule 30 capsule 2 Sig: Take 1 capsule by mouth once daily. Take with the 150mg capsule for total daily dose of 225mg. Per Psych, Tranquility cholecalciferol, Vitamin D3, (VITAMIN D3) 1,250 mcg (50,000 unit) cap capsule 12 capsule 3 Sig: Take 1 capsule by mouth one time a week. F/u 3 weeks to recheck BP. F/u 6 months WAE check CMP, lipid, UA, A1c, CBC,, TSH, Vit D prior I spent a total of 40 minutes on the date of the service which included preparing to see the patient, [id number] patient care, completing clinical documentation, performing a medically appropriate examination, counseling and educating the patient/family/caregiver and ordering medications, tests, or procedures. Bryant Grimm MD documented in this encounterUniversity [facility]04-04-2025 Telephone encounter Note * Telephone Encounter - Mercedes Boothe MA - 05/21/2024 9:54 AM EDT Patient is coming in next week for 6 month follow up. Mercedes Boothe MA [facility]04-04-2025 Miscellaneous Notes* Telephone Encounter - Mercedes Boothe MA - 05/21/2024 9:54 AM EDT Patient is coming in next week for 6 month follow up. Mercedes Boothe MA documented in this encounterUniversity Hospitals [facility]04-04-2025 Telephone encounter Note * Telephone Encounter - Mercedes Boothe MA - 05/21/2024 8:45 AM EDT Patient notified and voiced understanding. Her work has a weight loss program. She is meeting with them on Friday. Patient is scheduled Friday with Dr. Grimm for 6 month follow up. Mercedes Boothe MA [facility]04-04-2025 Miscellaneous Notes* Telephone Encounter - Mercedes Boothe MA - 05/21/2024 8:45 AM EDT Patient notified and voiced understanding. Her work has a weight loss program. She is meeting with them on Friday. Patient is scheduled Friday with Dr. Grimm for 6 month follow up. Mercedes Boothe MA * Telephone Encounter - Hetal Valenzuela APRN.CNP - 05/18/2024 5:09 PM EDT Please let patient know her US shows fatty liver disease.Recommend increase exercise with goal 150 minutes weekly, decreased intake of processed and fatty foods and weight loss of 5-10% or 13-26 pounds can be beneficial. documented in this encounterUniversity Hospitals [facility]04-01-2025 Telephone encounter Note * Telephone Encounter - Hetal Valenzuela APRN.CNP - 05/18/2024 5:09 PM EDT Please let patient know her US shows fatty liver disease.Recommend increase exercise with goal 150 minutes weekly, decreased intake of processed and fatty foods and weight loss of 5-10% or 13-26 pounds can be beneficial. [facility] Work Phone: [phone]) 835-776504-01-2025 History of Present illness Narrative* Kenya Malave RDMS - 05/18/2024 7:00 AM EDT Radiology Service Progress Note PATIENT NAME: Shaheed Jackson DATE OF SERVICE: May 18, 2024 TIME: 2:09 PM PATIENT IDENTITY VERIFICATION COMPLETED USING TWO (2) IDENTIFIERS: Name and Date of confirmedby patient verbally. FALL SCREENING: Has the patient had 2 falls in the last year or 1 fall with injury or currently using an Ambulatory Assistive Device (Walker, Cane, Wheelchair, Crutches, etc.)? No PATIENT GENDER DATA: Assigned female at . status: : No status:NO. PATIENT RELEVANT IMPLANT DATA REVIEWED: Not Applicable PATIENT PRESENTS WITH AN IMPLANTABLE OR ATTACHED SCOUTS: No RADIOLOGY DEPARTMENT: Ultrasound PERIPHERAL IV DATA: Not applicable SIGNED BY: Kenya Malave RDMS RVT May 18, 2024 2:09 PM documented in this encounterUniversity Hospitals [facility]04-01-2025 NoteHNO ID: [id number] Author: KENYA MALAVE RDMS Service: ? Author Type: Care Administrative Tech Type: Progress Notes Filed: 05/18/2024 14:09 Note Text: Radiology Service Progress Note PATIENT NAME: Shaheed Jcakson DATE OF SERVICE: May 18, 2024 TIME: 2:09 PM PATIENT IDENTITY VERIFICATION COMPLETED USING TWO (2) IDENTIFIERS: Name and Date of confirmed by patient verbally. FALL SCREENING: Has the patient had 2 falls in the last year or 1 fall with injury or currently using an Ambulatory Assistive Device (Walker, Cane, Wheelchair, Crutches, etc.)? No PATIENT GENDER DATA: Assigned female at . status: : No status: NO. PATIENT RELEVANT IMPLANT DATA REVIEWED: Not Applicable PATIENT PRESENTS WITH AN IMPLANTABLE OR ATTACHED SCOUTS: No RADIOLOGY DEPARTMENT: Ultrasound PERIPHERAL IV DATA: Not applicable SIGNED BY: Kenya Malave RDMS RVSara May 18, 2024 2:09 [facility]03-21-2025 NoteHNO ID: [id number] Author: LARA JIMENEZ PA-C Service: ? Author Type: Physician Market President Type: Progress Notes Filed: 05/07/2024 13:11 Note Text: DISTANCE HEALTH VISIT MyChart Zoom Video Visit was used for evaluation of this patient. Patient consents to visit. Patient's location: [place] I have communicated my name and active licensure. The patient's identity and physical location were verified at the time of this visit. 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 Chief Complaint No chief complaint on file. HPI Shaheed Jackson is a 23 year old female who presents here today via virtual for lab review.. Patient recently had labs completed. She recently started some OTC supplements. A couple probiotics and a GI digestive enzyme. Has been taking the digestive enzyme for about 1-2 months. Just started probiotics this week. Questions if these could be causing her abnormal lab results. Scheduled for follow up with PCP in 2 weeks. Past medical history, appointments, medications, allergies reviewed. Previous Medical History PAST MEDICAL HISTORY Diagnosis Date Attention deficit hyperactivity disorder (ADHD), combined type 12/14/2014 Class 2 obesity due to excess calories without serious comorbidity with body mass index (BMI) of 37.0 to 37.9 in adult Elevated hemoglobin A1c 05/03/2022 PANCHO (generalized anxiety disorder) 05/02/2022 Hyperlipidemia, mixed 05/03/2022 Major depressive disorder with single episode 05/02/2022 Oppositional defiant disorder 11/07/2007 Paradoxical insomnia 09/30/2018 using meletonin. Pseudotumor cerebri 07/04/[address] Andrew Seasonal allergies Thrombocytosis 05/03/2022 Chronic since 2003 (500-550) Previous Surgical History PAST SURGICAL HISTORY Procedure Laterality Date SECTION HX 05/02/2021 NONE Family History FAMILY HISTORY Problem Relation Age of Onset other (Other) Mother restless leg Lipids Father Diabetes Maternal Grandmother Hypertension Maternal Grandmother other (sleep apnea) Maternal Grandmother Hypertension Maternal Grandfather other (sleep apnea) Maternal Grandfather Colon Cancer Paternal Grandmother Lipids Paternal Grandfather Diabetes Paternal Grandfather Patient Allergies ALLERGIES No Known Allergies Current Medications Current Outpatient Medications on File Prior to Visit Medication Sig topiramate (TOPAMAX) 25 mg tablet Take 1 tablet by mouth daily at bedtime. methylPREDNISolone (MEDROL, YUE,) 4 mg Dose-Pack Follow instructions on package propranolol (INDERAL) 10 mg tablet Take 10 mg by mouth. As needed CRANBERRY ORAL Take by mouth once daily. venlafaxine ER (EFFEXOR XR) 75 mg 24 hr capsule Take 1 capsule by mouth once daily. Take with the 150mg capsule for total daily dose of 225mg. venlafaxine ER (EFFEXOR XR) 150 mg 24 hr capsule Take 1 capsule by mouth once daily. Take with the 75mg capsule for total daily dose of 225mg. buPROPion XL (WELLBUTRIN XL) 300 mg 24 hr tablet Take 1 tablet by mouth once daily. flaxseed oil (OMEGA 3 ORAL) Take by mouth as directed. CPAP/BIPAP/OTHER autoCPAP 8-10 cmH2O [facility] acetaminophen 325 mg cap Take by mouth. cetirizine (ZYRTEC) 10 mg tablet Take 1 tablet by mouth once daily. Ibuprofen 200 mg cap Take by mouth every 4 hours as needed. FOR PAIN. No current facility-administered medications on file prior to visit. Social History Social History Tobacco Use Smoking status: Never Passive exposure: Never Smokeless tobacco: Never Vaping Use Vaping status: Never Used Substance Use Topics Alcohol use: No Drug use: No Review of Symptoms REVIEW OF SYSTEMS See hpi EXAM: LMP 04/07/2024 (Approximate) Any vital signs collected today were done so using patient's home equipment, otherwise no vital signs due to distant health visit. PHYSICAL EXAMINATION: VIDEO EXAM: (if done, performed via video enabled technology) GENERAL: alert and appropriate, in no distress, well-hydrated, well nourished, and happy, smiling, interactive HEAD: normocephalic, no abnormality or lesion noted EYES: no injection and visual acuity is grossly normal Health Maintenance List GC (Gonorrhea) Screening (18-24) Never done HIV Screening Never done Chlamydia Screening (18-24) Never done Cervical Cancer Screening Never done Covid-19 Vaccine( season) due on 11/06/2024 DTaP,Tdap,Td Vaccine(7 - Td or Tdap) due on 10/03/2024 Hepatitis B Vaccine Completed Hepatitis C Screening Completed HPV Vaccine Addressed Influenza Vaccine Discontinued Meningococcal B Vaccine Discontinued Data reviewed ASSESSMENT/PLAN: 1. Elevated liver enzymes - ICD9: 790.5, ICD10: R74.8 (primary diagnosis) Advised patient to stop the digestive enzymes. I don't feel that t (more content not included)...[facility]03-21-2025 History of Present illness Narrative* Lara Jimenez PA-C - 05/07/2024 12:28 PM EDT DISTANCE HEALTH VISIT MyChart Zoom Video Visit was used for evaluation of this patient. Patient consents to visit. Patient's location: [place] I have communicated my name and active licensure. The patient's identity and physical location wereverified at the time of this visit. 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 Chief Complaint No chief complaint on file. HPI Shaheed Jackson is a 23 year old female who presents here today via virtual for lab review.. Patient recently had labs completed. She recently started some OTC supplements. A couple probiotics and a GI digestive enzyme. Has been taking the digestive enzyme for about 1-2 months. Just started probiotics this week. Questions if these could be causing her abnormal lab results. Scheduled for follow up with PCP in 2 weeks. Past medical history, appointments, medications, allergies reviewed. Previous Medical History PAST MEDICAL HISTORY Diagnosis Date Attention deficit hyperactivity disorder (ADHD), combined type 12/14/2014 Class 2 obesity due to excess calories without serious comorbidity with body mass index (BMI) of 37.0 to 37.9 in adult Elevated hemoglobin A1c 05/03/2022 PANCHO (generalized anxiety disorder) 05/02/2022 Hyperlipidemia, mixed 05/03/2022 Major depressive disorder with single episode 05/02/2022 Oppositional defiant disorder 11/07/2007 Paradoxical insomnia 09/30/2018 using meletonin. Pseudotumor cerebri 07/04/[address] Andrew Seasonal allergies Thrombocytosis 05/03/2022 Chronic since 2003 (500-550) Previous Surgical History PAST SURGICAL HISTORY Procedure Laterality Date SECTION HX 05/02/2021 NONE Family History FAMILY HISTORY Problem Relation Age of Onset other (Other) Mother restless leg Lipids Father Diabetes Maternal Grandmother Hypertension Maternal Grandmother other (sleep apnea) Maternal Grandmother Hypertension Maternal Grandfather other (sleep apnea) Maternal Grandfather Colon Cancer Paternal Grandmother Lipids Paternal Grandfather Diabetes Paternal Grandfather Patient Allergies ALLERGIES No Known Allergies Current Medications Current Outpatient Medications on File Prior to Visit Medication Sig topiramate (TOPAMAX) 25 mg tablet Take 1 tablet by mouth daily at bedtime. methylPREDNISolone (MEDROL, YUE,) 4 mg Dose-Pack Follow instructions on package propranolol (INDERAL) 10 mg tablet Take 10 mg by mouth. As needed CRANBERRY ORAL Take by mouth once daily. venlafaxine ER (EFFEXOR XR) 75 mg 24 hr capsule Take 1 capsule by mouth once daily. Take with the 150mg capsule for total daily dose of 225mg. venlafaxine ER (EFFEXOR XR) 150 mg 24 hr capsule Take 1 capsule by mouth once daily. Take with the 75mg capsule for total daily dose of 225mg. buPROPion XL (WELLBUTRIN XL) 300 mg 24 hr tablet Take 1 tablet by mouth once daily. flaxseed oil (OMEGA 3 ORAL) Take by mouth as directed. CPAP/BIPAP/OTHER autoCPAP 8-10 cmH2O [facility] acetaminophen 325 mg cap Take by mouth. cetirizine (ZYRTEC) 10 mg tablet Take 1 tablet by mouth once daily. Ibuprofen 200 mg cap Take by mouth every 4 hours as needed. FOR PAIN. No current facility-administered medications on file prior to visit. Social History Social History Tobacco Use Smoking status: Never Passive exposure: Never Smokeless tobacco: Never Vaping Use Vaping status: Never Used Substance Use Topics Alcohol use: No Drug use: No Review of Symptoms REVIEW OF SYSTEMS See hpi EXAM: LMP 04/07/2024 (Approximate) Any vital signs collected today were done so using patient's home equipment, otherwise no vital signs due to distant health visit. PHYSICAL EXAMINATION: VIDEO EXAM: (if done, performed via video enabled technology) GENERAL: alert and appropriate, in no distress, well-hydrated, well nourished, and happy, smiling, interactive HEAD: normocephalic, no abnormality or lesion noted EYES: no injection and visual acuity is grossly normal Health Maintenance List GC (Gonorrhea) Screening (18-24) Never done HIV Screening Never done Chlamydia Screening (18-24) Never done Cervical Cancer Screening Never done Covid-19 Vaccine(2023- season) due on 11/06/2024 DTaP,Tdap,Td Vaccine(7 - Td or Tdap) due on 10/03/2024 Hepatitis B Vaccine Completed Hepatitis C Screening Completed HPV Vaccine Addressed Influenza Vaccine Discontinued Meningococcal B Vaccine Discontinued Data reviewed ASSESSMENT/PLAN: 1. Elevated liver enzymes - ICD9: 790.5, ICD10: R74.8 (primary diagnosis) Advised patient to stop the digestive enzymes. I don't feel that these will be beneficial for her and may be causing stress on the liver. Will also check additional labs and RUQ US. - HEPATIC FUNCTION PNL - HEP ACUTE PANEL BL - US ABD RIGHT UPPER QUADRANT 2. Leukocytosis, unspecified type - ICD9: 288.60, ICD10: D72.829 Recheck in 2 weeks. Just slightly higher than her baselin - COMPLETE BLOOD COUNT AND DIFFERENTIAL - BACTERIAL CULTURE, URINE 3. Hypercalcemia - ICD9: 275.42, ICD10: E83.52 Unclear etiology Check: - VITAMIN D 25 HYDROXY - PTH INTACT - CALCIUM, TOTAL 4. Microscopic hematuria - ICD9: 599.72, ICD10: R31.29 Asymptomatic. Will recheck in 1-2 weeks - URINALYSIS, WITH MICROSCOPIC - BACTERIAL CULTURE, URINE 5. Hyperlipidemia, mixed - ICD9: 272.2, ICD10: E78.2 Due for labs prior to next routine visit - Counseled on healthy diet and regular exercise - LIPID PANEL, NONFASTING Lara Jimenez PA-C documented [facility] Tele[facility] encounter Note * Telephone Encounter - Parisa Jasso LPN - 05/06/2024 11:55 AM EDT Spoke with pt and scheduled a vv with Lara 05/07/24. Vv ok per Lara. Parisa Jasso LPN [facility]03-20-2025 Miscellaneous Notes* Telephone Encounter - Parisa Jasso LPN - 05/06/2024 11:55 AM EDT Spoke with pt and scheduled a vv with Lara 05/07/24. Vv ok per Lara. Parisa Jasso LPN * Telephone Encounter - Lara Jimenez PA-C - 05/06/2024 10:49 AM EDT Needs visit * Telephone Encounter - Parisa Jasso LPN - 05/06/2024 10:35 AM EDT Please see pt's message. Parisa Jasso LPN documented in [facility] encounterUniversity [facility]03[facility] Telephone encounter Note * Telephone Encounter - Lara Jimenez PA-C - 05/06/2024 10:49 AM EDT Needs visit [facility]03-20-2025 Telephone encounter Note* Telephone Encounter - Parisa Jasso LPN - 05/06/2024 10:35 AM EDT Please see pt's message. Parisa Jasso LPN [facility]03-19-2025 NoteHNO ID: [id number] Author: SOTO PALACIOS APRN.CRITICAL CARE EDUCATOR Service: ? Author Type: Nurse Practitioner Type: Progress Notes Filed: 05/05/2024 11:39 Note Text: [facility] Name: Shaheed Jackson Age: [age] year old Gender: female Primary Care Provider: Bryant Grimm MD 05/05/2024 - General Neurology, Soto Palacios APRN.CRITICAL CARE EDUCATOR ASSESSMENT Shaheed Jackson is a 23 year old female with history of pseudotumor cerebri, anxiety depression, hyperlipidemia. Since her last visit, she reports daily headaches. She has started back on Excedrin, she is taking this daily. Headaches began to become daily again in February. Headache is located in the parietal and occipital region bilaterally. Feels like pressure and pulsating. Reports Excedrin may bring it down, tylenol is ineffective. Headaches are daily, and last most of the day. Pain is rated 7-8/10. Excedrin decreases pain to 2-3/10. Notes associated nausea, no other migrainous features. She also reports she and her are holding off on or now. She does report headaches are positional, worsened when laying flat. . Headaches not worsened with activity. Denies vision changes. She does have an appointment to have her eye exam in May. States the headaches do feel like they did in the past, when she had OIH. Denies vision changes. Neurological examination is unremarkable. Differential diagnoses include IIH vs New Daily persistent Headaches. Due to positional headaches, will obtain MRI, MRA, MRV brain to assess for IIH. Will restart Topamax 25 mg at bedtime for headache prevention. Medrol dose back to break the headache cycle. She will see her senior financial reporting analyst in May. Can continue Excedrin for abortive therapy, however did discuss limiting to twice a week. Discussed plan with patient. All questions answered. Follow up in 8 weeks. PLAN 1. Start Topamax 25 mg at bedtime for headache prevention 2. Can continue Excedrin, but limit to 2 times a week 3. Medrol dose pack to break headache cycle 4. MRI Brain 5. MRA Brain 6. MRV Brain 7. Potassium level 2 weeks after starting Topamax 8. Will see senior financial reporting analyst in May 9. Follow up in 8 weeks or sooner if symptoms persist No diagnosis found. This is a 23 year old female followed for headches. The nature of migraine has been discussed. Episodic and prophylactic choices have been explained. No follow-ups on file. Chart, labs,and relevant images reviewed. Chief Complaint:No chief complaint on file. Chart Review: Last Filed Values Date of Most Recent Assessment and Plan 02/10/24 Specialty General Neurology Assessment Shaheed Jackson is a 23 year old female with history of pseudotumor cerebri, anxiety depression, hyperlipidemia. She is here today to establish care and treatment of headaches which began in 2011 when she was diagnosed with pseudotumor cerebri. She has been followed by Dr. Dodge. Was last seen by RAJESH Campuzano in 02/2023. Since her last visit, states she did not follow up with rheumatology or infectious disease. She was thought to have Lyme disease, but secondary testing came back negative. She is currently trying to become , so she discontinued her topamax. Not taking anything right now for headaches, besides regular excedrin. No double vision, has had two eye exams since her last appointment. Last exam was in . Reportedly exam was within normal limits. Denies double vision, visual changes, visual changes. Was previously taking Excedrin Drug Free head care for headaches. This had completely stopped her headaches. She has been off of this medication for 3 weeks and headaches have become almost daily since stopping this. Pain located in the occipital and frontal region. Lasts 2-3 hours. She does take regular Excedrin, which decreases her pain as well. Reports associated nausea. Denies double visions, visual obscurations, blurry vision. Unable to complete neurological examination due to virtual appointment. Patient is trying to become , so there are limitations with preventative therapy. Daily headaches likely due to abrupt discontinuance of Excedrin drug free, which contains multiple supplements. Recommend patient start taking magnesium, riboflavin, folic acid, and B12 daily for preventative therapy. Discussed plan with patient. All questions answered. Follow up in 8 weeks or sooner if symptoms persist. Plan 1. Start over the counter supplements: magnesium, riboflavin, B12, folic acid 2. Follow up in 8 weeks or sooner if symptoms persist Current abortive treatment: Excedrin Current preventive treatment: Topamax HPI: Since her last visit, she reports daily headaches. She has started back on Excedrin, she is taking this daily. Headaches began to become daily again in February. Headache is located in the parietal and occipital region bilaterally. Feels like pressure (more content not included)...[facility]02-13-2025 Telephone encounter Note* Telephone Encounter - Rocio Menjivar LPN - 04/01/2024 4:37 PM EST Patient notified with results. Patient verbalizes understanding. Rocio Menjivar LPN [facility]02-13-2025 Miscellaneous Notes* Telephone Encounter - Rocio Menjivar LPN - 04/01/2024 4:37 PM EST Patient notified with results. Patient verbalizes understanding. Rocio Menjivar LPN * Telephone Encounter - Parisa Jasso LPN - 03/31/2024 2:12 PM EST Left message for pt to contact office. Parisa Jasso LPN * Telephone Encounter - Lara Jimenez PA-C - 03/31/2024 12:37 PM EST Let patient know that her A1c is 6.1%. definitely start working on diet again and discuss more at visit with Dr. Grimm next month. Calcium is 10.3. recheck in a couple weeks. Order placed. Her one liver enzyme is a little elevated. Unclear the cause at this time. So will recheck in 2 weeks to trend as well. Most of these are findings that she has had in the past. So I just want to trend things to make sure not continuing to elevate. Dr. Grimm can go into more detail at visit. Lara Jimenez PA-C documented in this encounter[facility]02-[facility] Telephone encounter Note * Telephone Encounter - Parisa Jasso LPN - 03/31/2024 2:12 PM EST Left message for pt to contact office. Parisa Jasso LPN [facility]02-12-2025 Telephone encounter Note* Telephone Encounter - Lara Jimenez PA-C - 03/31/2024 12:37 PM EST Let patient know that her A1c is 6.1%. definitely start working on diet again and discuss more at visit with Dr. Grimm next month. Calcium is 10.3. recheck in a couple weeks. Order placed. Her one liver enzyme is a little elevated. Unclear the cause at this time. So will recheck in 2 weeks to trend as well. Most of these are findings that she has had in the past. So I just want to trend things to make sure not continuing to elevate. Dr. Grimm can go into more detail at visit. Lara Jimenez PA-C [facility]02-03-2025 NoteHNO ID: [id number] Author: LARA JIMENEZ PA-C Service: ? Author Type: Physician Market President Type: Progress Notes Filed: 03/22/2024 12:03 Note Text: DISTANCE HEALTH VISIT MyChart Zoom Video Visit was used for evaluation of this patient. Patient consents to visit. Patient's location: [place] I have communicated my name and active licensure. The patient's identity and physical location were verified at the time of this visit. 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 Chief Complaint Patient presents with: Low Blood Sugar HPI Shaheed Jackson is a 23 year old female who presents here today via virtual for Above Complaints.. Patient reports that for the past couple months she has noted some lightheadedness and dizziness that improves after she eats. States she has symptoms worse when she doesn't snack throughout the day. She has noticed some increased thirst. Has follow up for routine care next month. Past medical history, appointments, medications, allergies reviewed. Previous Medical History PAST MEDICAL HISTORY Diagnosis Date Attention deficit hyperactivity disorder (ADHD), combined type 12/14/2014 Class 2 obesity due to excess calories without serious comorbidity with body mass index (BMI) of 37.0 to 37.9 in adult Elevated hemoglobin A1c 05/03/2022 PANCHO (generalized anxiety disorder) 05/02/2022 Hyperlipidemia, mixed 05/03/2022 Major depressive disorder with single episode 05/02/2022 Oppositional defiant disorder 11/07/2007 Paradoxical insomnia 09/30/2018 using meletonin. Pseudotumor cerebri 07/04/[address] Andrew Seasonal allergies Thrombocytosis 05/03/2022 Chronic since 2003 (500-550) Previous Surgical History PAST SURGICAL HISTORY Procedure Laterality Date SECTION HX 05/02/2021 NONE Family History FAMILY HISTORY Problem Relation Age of Onset other (Other) Mother restless leg Lipids Father Diabetes Maternal Grandmother Hypertension Maternal Grandmother other (sleep apnea) Maternal Grandmother Hypertension Maternal Grandfather other (sleep apnea) Maternal Grandfather Colon Cancer Paternal Grandmother Lipids Paternal Grandfather Diabetes Paternal Grandfather Patient Allergies ALLERGIES No Known Allergies Current Medications Current Outpatient Medications on File Prior to Visit Medication Sig propranolol (INDERAL) 10 mg tablet Take 10 mg by mouth. As needed CRANBERRY ORAL Take by mouth once daily. venlafaxine ER (EFFEXOR XR) 75 mg 24 hr capsule Take 1 capsule by mouth once daily. Take with the 150mg capsule for total daily dose of 225mg. venlafaxine ER (EFFEXOR XR) 150 mg 24 hr capsule Take 1 capsule by mouth once daily. Take with the 75mg capsule for total daily dose of 225mg. buPROPion XL (WELLBUTRIN XL) 300 mg 24 hr tablet Take 1 tablet by mouth once daily. flaxseed oil (OMEGA 3 ORAL) Take by mouth as directed. aspirin/acetaminophen/caffeine (EXCEDRIN MIGRAINE ORAL) Take 1 tablet by mouth once daily. Drug free head care CPAP/BIPAP/OTHER autoCPAP 8-10 cmH2O [facility] acetaminophen 325 mg cap Take by mouth. cetirizine (ZYRTEC) 10 mg tablet Take 1 tablet by mouth once daily. Ibuprofen 200 mg cap Take by mouth every 4 hours as needed. FOR PAIN. No current facility-administered medications on file prior to visit. Social History Social History Tobacco Use Smoking status: Never Smokeless tobacco: Never Vaping Use Vaping status: Never Used Substance Use Topics Alcohol use: No Drug use: No Review of Symptoms REVIEW OF SYSTEMS See hpi EXAM: LMP 10/06/2023 (Approximate) Any vital signs collected today were done so using patient's home equipment, otherwise no vital signs due to distant health visit. PHYSICAL EXAMINATION: VIDEO EXAM: (if done, performed via video enabled technology) GENERAL: alert and appropriate, in no distress, well-hydrated, well nourished, and happy, smiling, interactive SKIN: no rash noted HEAD: normocephalic, no abnormality or lesion noted RESPIRATORY: breathing non-labored CHEST: equal chest rise with normal respiratory effort Health Maintenance List GC (Gonorrhea) Screening (18-24) Never done HIV Screening Never done Chlamydia Screening (18-) Never done Cervical Cancer Screening Never done Covid-19 Vaccine() due on 11/06/2024 DTaP,Tdap,Td Vaccine(7 - Td or Tdap) due on 10/03/2024 Hepatitis B Vaccine Completed Hepatitis C Screening Completed HPV Vaccine Addressed Influenza Vaccine Discontinued Meningococcal B Vaccine: Consider Based On Risk Discontinued Data reviewed ASSESSMENT/PLAN: 1. Elevated hemoglobin A1c - ICD9: 790.29, ICD10: R73.09 (primary diagnosis) Check labs Keep follow up as schedule Could consider glucose tolerance test (more content not included)...[facility]02-03-2025 History of Present illness Narrative* Lara Jimenez PA-C - 03/22/2024 11:37 AM EST DISTANCE HEALTH VISIT MyChart Zoom Video Visit was used for evaluation of this patient. Patient consents to visit. Patient's location: [place] I have communicated my name and active licensure. The patient's identity and physical location wereverified at the time of this visit. 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 Chief Complaint Patient presents with: Low Blood Sugar HPI Shaheed Jackson is a 23 year old female who presents here today via virtual for Above Complaints.. Patient reports that for the past couple months she has noted some lightheadedness and dizziness that improves after she eats. States she has symptoms worse when she doesn't snack throughout the day. She has noticed some increased thirst. Has follow up for routine care next month. Past medical history, appointments, medications, allergies reviewed. Previous Medical History PAST MEDICAL HISTORY Diagnosis Date Attention deficit hyperactivity disorder (ADHD), combined type 12/14/2014 Class 2 obesity due to excess calories without serious comorbidity with body mass index (BMI) of 37.0 to 37.9 in adult Elevated hemoglobin A1c 05/03/2022 PANCHO (generalized anxiety disorder) 05/02/2022 Hyperlipidemia, mixed 05/03/2022 Major depressive disorder with single episode 05/02/2022 Oppositional defiant disorder 11/07/2007 Paradoxical insomnia 09/30/2018 using meletonin. Pseudotumor cerebri 07/04/[address] Andrew Seasonal allergies Thrombocytosis 05/03/2022 Chronic since 2003 (500-550) Previous Surgical History PAST SURGICAL HISTORY Procedure Laterality Date SECTION HX 05/02/2021 NONE Family History FAMILY HISTORY Problem Relation Age of Onset other (Other) Mother restless leg Lipids Father Diabetes Maternal Grandmother Hypertension Maternal Grandmother other (sleep apnea) Maternal Grandmother Hypertension Maternal Grandfather other (sleep apnea) Maternal Grandfather Colon Cancer Paternal Grandmother Lipids Paternal Grandfather Diabetes Paternal Grandfather Patient Allergies ALLERGIES No Known Allergies Current Medications Current Outpatient Medications on File Prior to Visit Medication Sig propranolol (INDERAL) 10 mg tablet Take 10 mg by mouth. As needed CRANBERRY ORAL Take by mouth once daily. venlafaxine ER (EFFEXOR XR) 75 mg 24 hr capsule Take 1 capsule by mouth once daily. Take with the 150mg capsule for total daily dose of 225mg. venlafaxine ER (EFFEXOR XR) 150 mg 24 hr capsule Take 1 capsule by mouth once daily. Take with the 75mg capsule for total daily dose of 225mg. buPROPion XL (WELLBUTRIN XL) 300 mg 24 hr tablet Take 1 tablet by mouth once daily. flaxseed oil (OMEGA 3 ORAL) Take by mouth as directed. aspirin/acetaminophen/caffeine (EXCEDRIN MIGRAINE ORAL) Take 1 tablet by mouth once daily. Drug free head care CPAP/BIPAP/OTHER autoCPAP 8-10 cmH2O [facility] acetaminophen 325 mg cap Take by mouth. cetirizine (ZYRTEC) 10 mg tablet Take 1 tablet by mouth once daily. Ibuprofen 200 mg cap Take by mouth every 4 hours as needed. FOR PAIN. No current facility-administered medications on file prior to visit. Social History Social History Tobacco Use Smoking status: Never Smokeless tobacco: Never Vaping Use Vaping status: Never Used Substance Use Topics Alcohol use: No Drug use: No Review of Symptoms REVIEW OF SYSTEMS See hpi EXAM: LMP 10/06/2023 (Approximate) Any vital signs collected today were done so using patient's home equipment, otherwise no vital signs due to distant health visit. PHYSICAL EXAMINATION: VIDEO EXAM: (if done, performed via video enabled technology) GENERAL: alert and appropriate, in no distress, well-hydrated, well nourished, and happy, smiling, interactive SKIN: no rash noted HEAD: normocephalic, no abnormality or lesion noted RESPIRATORY: breathing non-labored CHEST: equal chest rise with normal respiratory effort Health Maintenance List GC (Gonorrhea) Screening (18-24) Never done HIV Screening Never done Chlamydia Screening (18-) Never done Cervical Cancer Screening Never done Covid-19 Vaccine(2023- season) due on 11/06/2024 DTaP,Tdap,Td Vaccine(7 - Td or Tdap) due on 10/03/2024 Hepatitis B Vaccine Completed Hepatitis C Screening Completed HPV Vaccine Addressed Influenza Vaccine Discontinued Meningococcal B Vaccine: Consider Based On Risk Discontinued Data reviewed ASSESSMENT/PLAN: 1. Elevated hemoglobin A1c - ICD9: 790.29, ICD10: R73.09 (primary diagnosis) Check labs Keep follow up as schedule Could consider glucose tolerance testing in future - HEMOGLOBIN A1C - COMPREHENSIVE METABOLIC PANEL - COMPLETE BLOOD COUNT AND DIFFERENTIAL - URINALYSIS, WITH MICROSCOPIC 2. Increased thirst - ICD9: 783.5, ICD10: R63.1 As above - HEMOGLOBIN A1C - COMPREHENSIVE METABOLIC PANEL - COMPLETE BLOOD COUNT AND DIFFERENTIAL - URINALYSIS, WITH MICROSCOPIC Lara Jimenez PA-C documented in this encounterUniversity [facility]12[facility] Instructions* Patient Instructions* Lanzo, Soto, PROFESSIONAL SKATER.CRITICAL CARE EDUCATOR - 02/10/2024 11:28 AM EST Start magnesium oxide over the counter, riboflavin, folic acid, B12 Follow up in 8 weeks or sooner if symptoms persist Headache Preventive Treatment: Please keep in mind that it takes 4-6 weeks for the medication to start working well and 2-3 monthsat the appropriate dose before deciding if it will be useful or not. If it is not helping at all bythis time, then we will discuss other medications to try. Supplements may take 3-6 months until yousee full effect. Natural supplements: Magnesium Oxide 500 mg at bed Coenzyme Q10 300 mg in AM Vitamin B2- 200 mg twice a day Feverfew 50 mg twice a day Add only 1 supplement at a time since even natural supplements can have undesirable side effects. You can sometimes buy supplements cheaper (especially Coenzyme Q10) at www.[employer] or at Commun.it. Vitamins and herbs that show potential Magnesium: Magnesium (250 mg twice a day or 500 mg at bed) has a relaxant effect on smooth muscles such as blood vessels. Individuals suffering from frequent or daily headache usually have low magnesium levels which can be increase with daily supplementation of 400-750 mg. Three trials found 40-90%average headache reduction when used as a preventative. Magnesium also demonstrated the benefit in menstrually related migraine. Magnesium is part of the messenger system in the serotonin cascade andit is a good muscle relaxant. It is also useful for constipation which can be a side effect of other medications used to treat migraine. Good sources include nuts, whole grains, and tomatoes. Magnesium comes in many different forms: Magnesium glycinate is a good choice for those with a sensitive stomach who have gastrointestinal side effects such as diarrhea with other forms of magnesium. It is anecdotally also helpful with anxiety and sleep. Magnesium threonate also has low risk of gastrointestinal side effects and anecdotally helpful with cognitive function and brain fog symptoms. Magnesium malate has low gastrointestinal side effects and is reportedly more energizing and anecdotally often helpful in fibromyalgia and chronic fatigue syndrome. Magnesium citrate is one of the most studied, popular, and well-absorbed forms of magnesium. It can also be mixed easily with liquids if you can't take pills. However, it comes w ith a higher risk of diarrhea and gastrointestinal side effects, although this could be helpful forthose with constipation. Magnesium oxide is also well studied, cheap, and often used for heartburn and indigestion. However, it is not well absorbed and can have some laxative side effects as well, so can also be helpful for constipation. Riboflavin (vitamin B 2) 200 mg twice a day. This vitamin assists nerve cells in the production of ATP a principal energy storing molecule. It is necessary for many chemical reactions in the body. There have been at least 3 clinical trials of riboflavin using 400 mg per day all of which suggested that migraine frequency can be decreased. All 3 trials showed significant improvement in over half ofmigraine sufferers. The supplement is found in bread, cereal, milk, meat, and poultry. Most Americans get more riboflavin than the recommended daily allowance, however riboflavin deficiency is not necessary for the supplements to help prevent headache. Feverfew: Feverfew is a common garden herb kake to [place] and popular in [facility] as a treatment for disorders typically controlled by aspirin. The mechanism of action is unknown but is believed to be related to a chemical called parthenolide which helps the body use serotonin more effectively. Serotonin helps prevent migraine and assists with resolution when it occurs. Parthenolide also inhibits the release of histamine which is linked to pain and inflammation. Consistency of active ingredients in different products can be a problem. Some formulations don't have the active ingredient (parthenolide) that prevents migraine. A parthenolide content of 0.2% is generally recommended. Typical dosage is one capsule 3 times a day. Coenzyme Q10: This is present in almost all cells in the body and is critical component for the conversion of energy. Recent studies have shown that a nutritional supplement of CoQ10 can reduce the frequency of migraine attacks by improving the energy production of cells as with riboflavin. Doses of 150 mg twice a day have been shown to be effective. Melatonin: Increasing evidence shows correlation between melatonin secretion and headache conditions. Melatonin supplementation has decreased headache intensity and duration. It is widely used as a sleep aid. Sleep is natures way of dealing with migraine. A dose of 3 mg is recommended to start for headaches including cluster headache. Higher doses up to 15 mg has been reviewed for use in Cluster headache and have been used. The rationale behind using melatonin for cluster is that many theories regarding the cause of Cluster headache center around the disruption of the normal circadian rhythm in the brain. This helps restore the normal circadian rhythm. Rajwinder: Rajwinder has a small amount of antihistamine and anti-inflammatory action which may help headache. It is primarily used for nausea and may aid in the absorption of other medications. HEADACHE DIET: Foods and beverages which may trigger migraine Note that only 20% of headache patients are food sensitive. You will know if you are food sensitiveif you get a headache consistently 20 minutes to 2 hours after eating a certain food. Only cut out a food if it causes headaches, otherwise you might remove foods you enjoy! What matters most for diet is to eat a well balanced healthy diet full of vegetables and low fat protein, and to not miss meals. Chocolate, other sweets ALL cheeses except cottage and cream cheese Dairy products, yogurt, sour cream, ice cream Liver Meat extracts (Bovril, Marmite, meat tenderizers) Meats or fish which have undergone aging, fermenting, pickling or smoking. These include: Hotdogs,salami,Lox,sausage, mortadellas,smoked salmon, pepperoni, Pickled martin Pods of broad miles (Jordanian beans, Telugu pea pods, Lao (shukri) beans, carl and navy beans Ripe avocado, ripe banana Yeast extracts or active yeast preparations such as Salguero's or Mariluz's (commercial bakes goodsare permitted) Tomato based foods, pizza (lasagna, etc.) MSG (monosodium glutamate) is disguised as many things; look for these common aliases: Monopotassium glutamate Autolysed yeast Hydrolysed protein Sodium caseinate flavorings all natural preservatives Nutrasweet Avoid all other foods that convincingly provoke headaches. Headache Prevention Strategies: 1. Maintain a headache diary; learn to identify and avoid triggers. Common triggers include: Emotional triggers: Emotional/Upset family or friends Emotional/Upset occupation Business reversal/success Anticipation anxiety Crisis-serious Post-crisis periodNew job/position Physical triggers: Vacation Day Weekend Strenuous Exercise High Altitude Location New Move Menstrual Day Physical Illness Oversleep/Not enough sleep Weather changes Light: Photophobia or light sesnitivity treatment involves a balance between desensitization and reduction in overly strong input. Use dark polarized glasses outside, but not inside. Avoid bright or fluorescent light, but do not dim environment to the point that going into a normally lit room hurts. Consider FL- 41 tint lenses, which reduce the most irritating wavelengths without blocking too muchlight. These can be obtained at [employer] or [employer] Foods: see list above. 2. Limit use of acute treatments (hbto-dwc-wqdhnmd medications, triptans, etc.) to no more than 2 days per week or 10 days per month to prevent medication overuse headache (rebound headache). 3. Follow a regular schedule (including weekends and holidays): Don't skip meals. Eat a balanced diet. 8 hours of sleep nightly. Minimize stress. Exercise 30 minutes per day. Being overweight is associated with a 5 times increased risk of chronic migraine. Keep well hydrated and drink 6-8 glasses of water per day. 4. Initiate non-pharmacologic measures at the earliest onset of your headache. Rest and quiet environment. Relax and reduce stress. [id number] is a free larisa that can instruct you on some simple relaxtionand breathing techniques. Http://RightScale is a free website that provides teaching videos on relaxation. Also, there are many apps that can be downloaded for mindful relaxation. An larisa called YOGA NIDRA will help walk you through mindfulness. Cold compresses. 5. Don't wait!! Take the maximum allowable dosage of prescribed medication at the first sign of migraine. 6. Compliance: Take prescribed medication regularly as directed and at the first sign of a migraine. 7. Communicate: Call your physician when problems arise, especially if your headaches change, increase in frequency/severity, or become associated with neurological symptoms (weakness, numbness, slurred speech, etc.). 8. Headache/pain management therapies: Consider various complementary methods, including medication, behavioral therapy, psychological counselling, biofeedback, massage therapy, acupuncture, dry needling, and other modalities. Such measures may reduce the need for medications. Counseling for pain ma nagement, where patients learn to function and ignore/minimize their pain, seems to work very well. 9. Recommend changing family's attention and focus away from patient's headaches. Instead, emphasize daily activities. If first question of day is 'How are your headaches/Do you have a headache today?', then patient will constantly think about headaches, thus making them worse. Goal is to re-directattention away from headaches, toward daily activities and other distractions. 10. Helpful Websites: www.AmericanHeadacheSociety.org www.migrainetrust.org www.headaches.org www.migraine.org.uk www.achenet.org 11. HEADACHE EXPECTATIONS: There are many types of headaches, and only a rare few in which complete relief can be expected. Ingeneral, there is no cure for headache, especially migraine based headaches. There is nothing available that completely prevents headaches from occurring, breaking through, or having periodic flare-ups and fluctuations. Regardless of what you are using on a daily basis for prevention, episodic headaches should still be expected, and periods where frequency may escalate and fluctuate are unavoidable. There is no quick fix for most headaches. Furthermore, the longer you have had high frequency headaches (such as chronic daily headache), the longer it will likely take to expect any improvement. In fact, some people will never improve, regardless of how many medications or other treatments we try.Our treatment strategy is to evaluate for possible causes of your headache, although testing is usually always normal, even in cases of daily continuous headaches for years. Most types of headache such as migraine are electrical brain disorders (similar to how epilepsy is an electrical brain disorders). Therefore, there is no testing that will reveal this dysfunctional electrical circuitry suchon MRI, or other testing. We try to find a medication that may help lessen the frequency and/or severity of your headaches. The goal is not to completely stop them from happening, although if that happens, great! Different people respond to different medications, and some people just don't respond to anything, so it's usually a matter of trying different options. We can not predict if or when exac tly you will respond to a treatment that we provide. Preventive headache medications take 4-6 weeks to start working, and 2-3 months to see full effect,assuming you reach an effective dose. Therefore, calling or messaging frequently because you have aheadache flare prior to the 3 month devin is unlikely to change anything, and unfortunately there isnothing available that will expedite this, so please try to avoid this. Our recommendation will gene rally be to give it adequate time first. If you are unable to wait it out for medications to work, we can also try IV infusions for some temporary relief. O In general, the best that preventive medications or other treatments (including Botox) are able to offer in migraine management (variable in other headache types) is a 50% improvement in frequency and/or severity of headache. That is our goal, and any additional benefit is considered a bonus. Some people do significantly better than this, others do not get close to this. Therefore, if your headaches are not improving by at least 3 months on your preventive strategy, contact us and we can discuss further adjustments. Keep in mind that complete headache cure is not a realistic expectation. Our Team: The nursing staff, and medical assistants are a major part of YOUR TREATMENT TEAM and will be handling your phone calls and inquiries, if any. Unless explicitly told otherwise at the time of your office visit, your study results and ensuing treatment plans will be released via Korb[employer] and discussedduring your follow-up appointment. [employer]: Please ask the schedulers to give you an activation code. The main way of communication isby Korbitec rather than phone lines, so if you have not signed up, please do so. Korbitec is also theway that you can review your labs and testing. We are not able to contact everyone to tell them results are normal. If you do not hear back from us regarding testing you have had, it should be considered normal or within normal range. If you have any questions about the results, you are free to message us. K[employer]c is meant for simple questions regarding medications, possible side effects, or other simplestraight forward questions in limited sentences, rather than multiple paragraphs of discussion. [employer] is not meant for, or efficient for these complex questions, extensive questions, extensive medication adjustments, complex new symptoms or concerns. These issues beyond simple questions require afollow up visit with myself, one of our physician assistants, nurse practitioners, or a Virtual Visit via computer or smart phone, as detailed further down. Refills: Please pay attention to when your refills will need to be renewed. Due to the volume of phone callsdaily, this could potentially take a few days, although we certainly try to honor your refill requests as soon as we can. You should call at least 1 week in advance of needing a refill to ensure you do not run out of medication. Keep in mind that refill requests on Fridays may not be filled until the following week. The Headache and Facial Pain Section does not complete disability or any other insurance-related forms/documention. We will complete FMLA forms. All of the office notes, study results, and other pertinent documentation generated as part of your evaluation will be available to you and to your Primary Care Physician (PCP). Use of this material to complete such forms will be at the discretion of your PCP/referring physician. In regards to blood work, testing, and radiology reports these are released automatically to the patients. We do not comment on most testing on [facility] in a message or commentary unless there is a concern. You will not receive a message from me of the result unless there is a specific concern of the result I need you to address further in care with us or your primary medical team. Make sure to check your my chart email or larisa. documented in this encounterUniversity [facility]12-24-2024 History of Present illness Narrative* Soto Palacios APRN.CNP - 02/10/2024 11:00 AM EST Images from the original note were not included. [facility] New Patient Virtual Evaluation Consulting Provider: Reshma Winkler [address] [facility] [id number] Individuals who were included in, or assisted with the encounter were: Shaheed Vivar Renetta Soto Palacios APRN.CNP Chief Complaint/Issues: Shaheed Jackson is a 23 year old female seen in the [facility] for: Headaches HPI: Last seen by Reshma Winkler PA-C on 03/10/2023. ?? Impression: ASSESSMENT/PLAN: 1. Pseudotumor cerebri - ICD9: 348.2, ICD10: G93.2 Patient with worsening headaches after stopping Diamox and starting Topamax 25 mg. Has not titratedup on this. While on the Diamox she was having about 15 headache days a month, but since stopping it she has had about almost daily to daily headaches. No change in headaches or worsening severity, but more prevalent. No new symptoms, no vision loss or vision changes. Saw an eye doctor in November and papilledema was appreciated, has not seen eye doctor since she stopped taking the Diamox. At thistime, as patient is only on 25 mg of Topamax, will titrate up to 100 mg. MRI of the brain and MRV of the brain were without any abnormality intracranially. Patient did have lab work that showed B12 de ficiency as well as positive Lyme and positive JOE. Gave instructions on supplementing B12, encouraged her to continue with appointments for infectious disease and rheumatology on the . Discussed other alternatives for treatment for IIH including decreasing salt and weight loss. Therewas discussion about possible lumbar puncture at last appointment should her headaches be worsening, which they are. However will reach out to collaborating physician to see if this is needed or willtrial titrating up on Topamax first. Discussed at length the signs and symptoms that would warrant going to the emergency department andpatient is amenable. Patient agreeable to treatment plan of care at this time, all questions were answered. Patient follow-up in 6 to 8 weeks or sooner should any symptoms change or worsen. Plan: All options for treatment discussed. Preventative: Topamax 100 mg Abortive: Excedrin Follow-up: 6-8 weeks TODAY 02/10/2024 Patient reports she has a history of IIH in 2020 when she was with her daughter. LP in 2020, which relieved pressure. After of her daughter, testing repordtedly normal. She was orderedtopamax with Dr. Dodge at the beginning of this year. She had her daughter in 2021.[facility]. MRI brain with Dr. Dodge were WNL. She was last seen by Reshma Winkler PA-C at the beginning of the year. Since her last visit, states she did not follow up with rheumatology or infectious disease. She wasthought to have Lyme disease, but secondary testing came back negative. She is currently trying to become , so she discontinued her topamax. Not taking anything right now for headaches, besides regular excedrin. No double vision, has had two eye exams since her last appointment. Last exam was in . Reportedly exam was within normal limits. Denies double vision, visual changes, visual changes. Was previously taking Excedrin Drug Free head care for headaches. This had completely stopped her headaches. She has been off of this medication for 3 weeks and headaches have become almost daily since stopping this medication. She does take regular Excedrin, which decreases her pain as well. Taking propranolol 10 mg for anxiety as needed. This was prescribed by her mental health phsycian. She just started working in front of a computer screen, which has worsened headaches. Not as bad onthe weekends. Migraine HPI HEADACHE LOCATION: occipital region and occasional in the frontal region Onset: Headaches began in 2020, increased again 3 weeks ago, currently also on CPAP which helps herheadaches Quality: pressure Photophobia? No Phonophobia? No Nausea? Yes Vomitting? No Aura? No None Worse with activity? Yes, sometimes Severe? Yes, 7/10 pain, after excedrin it is gone within an hour Frequency: daily, but the patient has headache free intervals Duration? Usually lasts a few hours until she takes excedrin Caffeine intake? Occasional coffee Water intake? Four to seven 8 ounce glasses daily Triggers? None Sleep concerns? CPAP has been helping her sleep Mood concerns? Yes, seeing psychologist and counselor for depression/anxiety History of concussion? No Autonomic features: None Previous/Current Headache treatment Preventative: Effexor Lexapro Topamax welbutrin Rescue: Tylenol Iboprofen Excedrin Diamox 500 BID # of doses of abortive medications per month: < 10 days/month (or 8 for opiates, 5 for barbiturates) Medication Overuse Headache concern? No Positional? No Double vision? No Visual obscurations? No Worse with valsalva/sneeze/cough? No Plans for ? Yes Family Hx of migraines, aneurysms, brain tumors: No General Examination: General Exam Neurological Exam Assessment & Plan 02/10/2024 - General Neurology, Soto Palacios APRN.CRITICAL CARE EDUCATOR ASSESSMENT Shaheed Jackson is a 23 year old female with history of pseudotumor cerebri, anxiety depression,hyperlipidemia. She is here today to establish care and treatment of headaches which began in 2011 when she was diagnosed with pseudotumor cerebri. She has been followed by Dr. Dodge. Was last seen by RAJESH Campuzano in 02/2023. Since her last visit, states she did not follow up with rheumatology or infectious disease. She wasthought to have Lyme disease, but secondary testing came back negative. She is currently trying to become , so she discontinued her topamax. Not taking anything right now for headaches, besides regular excedrin. No double vision, has had two eye exams since her last appointment. Last exam was in . Reportedly exam was within normal limits. Denies double vision, visual changes, visual changes. Was previously taking Excedrin Drug Free head care for headaches. This had completely stopped her headaches. She has been off of this medication for 3 weeks and headaches have become almost daily since stopping this. Pain located in the occipital and frontal region. Lasts 2-3 hours. She does take regular Excedrin, which decreases her pain as well. Reports associated nausea. Denies double visions,visual obscurations, blurry vision. Unable to complete neurological examination due to virtual appointment. Patient is trying to become, so there are limitations with preventative therapy. Daily headaches likely due to abrupt discontinuance of Excedrin drug free, which contains multiple supplements. Recommend patient start taking magnesium, riboflavin, folic acid, and B12 daily for preventative therapy. Discussed plan withpatient. All questions answered. Follow up in 8 weeks or sooner if symptoms persist. PLAN 1. Start over the counter supplements: magnesium, riboflavin, B12, folic acid 2. Follow up in 8 weeks or sooner if symptoms persist No diagnosis found. No follow-ups on file. Data Review Objective Current Outpatient Medications Medication Sig CRANBERRY ORAL Take by mouth once daily. venlafaxine ER (EFFEXOR XR) 75 mg 24 hr capsule Take 1 capsule by mouth once daily. Take with the 150mg capsule for total daily dose of 225mg. venlafaxine ER (EFFEXOR XR) 150 mg 24 hr capsule Take 1 capsule by mouth once daily. Take with the 75mg capsule for total daily dose of 225mg. buPROPion XL (WELLBUTRIN XL) 300 mg 24 hr tablet Take 1 tablet by mouth once daily. flaxseed oil (OMEGA 3 ORAL) Take by mouth as directed. BENEFIBER, WHEAT DEXTRIN, ORAL Take by mouth. medical supply, miscellaneous (MISCELLANEOUS MEDICAL SUPPLY MISC) 2 tablets once daily. Obvi collagenic burn aspirin/acetaminophen/caffeine (EXCEDRIN MIGRAINE ORAL) Take 1 tablet by mouth once daily. Drug free head care CPAP/BIPAP/OTHER autoCPAP 8-10 cmH2O [facility] acetaminophen 325 mg cap Take by mouth. cetirizine (ZYRTEC) 10 mg tablet Take 1 tablet by mouth once daily. Ibuprofen 200 mg cap Take by mouth every 4 hours as needed. FOR PAIN. No current facility-administered medications for this visit. ACTIVE PROBLEM LIST Oppositional Defiant Disorder Attention Deficit Hyperactivity Disorder (Adhd), Combined Type Well Adolescent Visit Paradoxical Insomnia Class 2 Obesity Due to Excess Calories Without Serious Comorbidity With Body Mass Index (Bmi) of 37.0 to 37.9 in Adult Pseudotumor Cerebri Major Depressive Disorder With Single Episode Pancho (Generalized Anxiety Disorder) Encounter for Screening for Diabetes Mellitus Elevated Hemoglobin A1c Hyperlipidemia, Mixed Hypercalcemia Elevated Lfts Thrombocytosis PAST MEDICAL HISTORY Diagnosis Date Attention deficit hyperactivity disorder (ADHD), combined type 12/14/2014 Class 2 obesity due to excess calories without serious comorbidity with body mass index (BMI) of 37.0 to 37.9 in adult Elevated hemoglobin A1c 05/03/2022 PANCHO (generalized anxiety disorder) 05/02/2022 Hyperlipidemia, mixed 05/03/2022 Major depressive disorder with single episode 05/02/2022 Oppositional defiant disorder 11/07/2007 Paradoxical insomnia 09/30/2018 using meletonin. Pseudotumor cerebri 07/04/[address] Andrew Seasonal allergies Thrombocytosis 05/03/2022 Chronic since 2003 (500-550) PAST SURGICAL HISTORY Procedure Laterality Date SECTION HX 05/02/2021 NONE Social History Tobacco Use Smoking status: Never Smokeless tobacco: Never Vaping Use Vaping status: Never Used Substance Use Topics Alcohol use: No Drug use: No FAMILY HISTORY Problem Relation Age of Onset other (Other) Mother restless leg Lipids Father Diabetes Maternal Grandmother Hypertension Maternal Grandmother other (sleep apnea) Maternal Grandmother Hypertension Maternal Grandfather other (sleep apnea) Maternal Grandfather Colon Cancer Paternal Grandmother Lipids Paternal Grandfather Diabetes Paternal Grandfather Review of Systems Lab and Test Review: No visits with results within 3 Month(s) from this visit. Latest known visit with results is: Appointment on 07/28/2023 Component Date Value Ref Range Status Total Cholesterol, Nonfasting 07/28/2023 214 (H) <200 mg/dL Final <200 mg/dL, Desirable 200-239 mg/dL, Borderline high >239 mg/dL, High Triglycerides, Nonfasting 07/28/2023 379 (H) <150 mg/dL Final <150 mg/dL, Normal 150-199 mg/dL, Borderline high 200-499 mg/dL, High >499 mg/dL, Very high HDL Cholesterol, Nonfasting 07/28/2023 27 (L) >39 mg/dL Final 40-59 mg/dL, Acceptable >59 mg/dL, High: Negative risk factor for coronary heart disease <40 mg/dL, Low: Positive risk factor for coronary heart disease LDL Cholesterol, Nonfasting 07/28/2023 111 (H) <100 mg/dL Final <100 mg/dL, Optimal 100-129 mg/dL, Near optimal/above optimal 130-159 mg/dL, Borderline high 160-189 mg/dL, High >189 mg/dL, Very high Secondary prevention optimal LDL Cholesterol levels are recommended to be < 70 mg/dL Non HDL Cholesterol, Nonfasting 07/28/2023 187 (H) <130 mg/dL Final <130 mg/dL, Optimal 130-159 mg/dL, Near optimal/above optimal 160-189 mg/dL, Borderline high 190-219 mg/dL, High >219 mg/dL, Very high Secondary prevention optimal non HDL Cholesterol levels are recommended to be <100 mg/dL VLDL Cholesterol, Nonfasting 07/28/2023 76 (H) <30 mg/dL Final Total Chol/HDL Ratio, Nonfasting 07/28/2023 7.93 (H) <5.10 mg/dL Final LDL/HDL Ratio, Nonfasting 07/28/2023 4.11 (H) <2.54 mg/dL Final Reference: 1. National Cholesterol Education Program ATP III Guideline At-A-Glance Quick Desk Reference: National Heart, Lung, and Blood Wilmer. National Institutes of Health. 2001: NIH Publication No. 01-3305. 2. An International Atherosclerosis Society position paper: global recommendations for the management of dyslipidemia: executive summary, Atherosclerosis. 2014: 232(2):410-413. Cut Points from the [facility]'s Prevalence Study for ages 20 to 24 years can be locatedin the following reference: Expert Panel on Integrated Guidelines for Cardiovascular Health and Risk Reduction in Children and Adolescents: National Heart, Lung and Blood Wilmer. Pediatrics. 2011:1 28(Suppl 5):C024-645. MRI BRAIN WO IVCON Exam End: 12/30/2022 10:38 AM (Final result) Impression: IMPRESSION: No acute intracranial abnormality. Gross brain volume and morphology is within expected limits for age. ... CT BRAIN WO IVCON Exam End: 11/04/2022 1:24 PM (Final result) Impression: IMPRESSION: No acute intracranial process. Business Information Analyst: SCOTTY Transcribe Date/Time: Nov 04 2022 1:35P Dictated by : PATRICE SALTER MD This examination was interpreted and the report reviewed and electronically signed by: ASTER CLAYTON DO on Nov 04 2022 1:49PM EST Outside Data/Labs: Subjective Patient-Entered Data: 02/08/24 - GENERAL NEUROLOGY SCORES 05/21/2023 08/15/2023 10/31/2023 PROMIS 10 Health, in general Poor Fair Fair Quality of life, in general Fair Fair Poor Physical health, in general Poor Poor Poor Mental health, in general Poor Fair Poor Social activities satisfaction Good Fair Poor Performing ADL's Completely Mostly Mostly Social role satisfaction Fair Fair Fair Pain, on average 6 7 7 Fatigue, on average Severe Moderate Moderate Emotional problems Always Often Often PHYSICAL Score 37.4 (Fair) 34.9 (Poor) 34.9 (Poor) MENTAL Score 31.3 (Fair) 33.8 (Fair) 25.1 (Poor) 09/04/2023 10/31/2023 10/31/2023 Depression Screening PHQ-2 Score 6 6 6 PHQ-9 Score 22 21 20 11/14/2022 SLEEP APNEA SCORE Probability of moderate-severe sleep apnea (%) SAPS V2 6 (Sleep study not recommended) 12/26/2022 02/17/2023 10/31/2023 AVERAGE SLEEP 24 HOURS Average sleep last 24 hrs 15 15 12 12/26/2022 05/26/2023 10/31/2023 PROMIS CAT Sleep Disturbance PROMIS Sleep Disturbance T-Score 61 (moderate) 65 (moderate) 51 (within normal limits) PROMIS Sleep Disturbance Percentile 14 7 46 I spent a total of 45 minutes on the date of the service which included preparing to see the patient, [id number] patient care, completing clinical documentation, obtaining and/or reviewing separately obtained history, performing a medically appropriate examination, counseling and educating the pat ient/family/caregiver, and ordering medications, tests, or procedures. Soto Palacios APRN.[facility] [address] [id number] Appointment: [phone] In regards to blood work, testing, and radiology reports these are released automatically to the patients. We do not comment on most testing on mychart in a message or commentary unless there is a concern. You will not receive a message from me of the result unless there is a specific concern. Makesure to check your my chart email or larisa. My impression and recommendations were discussed with the patient and they were provided with a detailed after summary visit highlighting such. Patient verbalizes understanding and I have addressed concerns and questions at this visit. Reassurance provided. Medication side effects discussed as applicable. . 1. This office note has been dictated and may contain minor typographic errors that escaped review. 2. The nursing staff and medical assistants are a major part of YOUR TREATMENT TEAM and will be handling your phone calls and inquiries, if any. Unless explicitly told otherwise at the time of your office visit, your study results and ensuing treatment plans will be discussed during your follow-up appointment. If you do not have a follow-up appointment and wish to discuss any issues directly withme, please feel free to obtain one. 3. It is my practice to not fill disability or any other insurance-related forms/documention. All of the office notes, study results, and other pertinent documentation generated as part of your evaluation will be available to you and to your Primary Care Physician (PCP). Use of this material to complete such forms will be at the discretion of your PCP/referring physician documented in this encounterUniversity Hospitals Beachwood [facility] Center12-24-2024 NoteHNO ID: [id number] Author: SOTO PALACIOS APRN.CNP Service: ? Author Type: Nurse Practitioner Type: Progress Notes Filed: 02/10/2024 13:37 Note Text: [facility] General Neurology New Patient Virtual Evaluation Consulting Provider: Reshma Winkler [address] [facility] [address] Individuals who were included in, or assisted with the encounter were: Shaheed Palacios APRN.CNP Chief Complaint/Issues: Shaheed Ghazala Jackson is a 23 year old female seen in the [facility]rology for: Headaches HPI: Last seen by Reshma Winkler PA-C on 03/10/2023. ?? Impression: ASSESSMENT/PLAN: 1. Pseudotumor cerebri - ICD9: 348.2, ICD10: G93.2 Patient with worsening headaches after stopping Diamox and starting Topamax 25 mg. Has not titrated up on this. While on the Diamox she was having about 15 headache days a month, but since stopping it she has had about almost daily to daily headaches. No change in headaches or worsening severity, but more prevalent. No new symptoms, no vision loss or vision changes. Saw an eye doctor in November and papilledema was appreciated, has not seen eye doctor since she stopped taking the Diamox. At this time, as patient is only on 25 mg of Topamax, will titrate up to 100 mg. MRI of the brain and MRV of the brain were without any abnormality intracranially. Patient did have lab work that showed B12 deficiency as well as positive Lyme and positive JOE. Gave instructions on supplementing B12, encouraged her to continue with appointments for infectious disease and rheumatology on the . Discussed other alternatives for treatment for IIH including decreasing salt and weight loss. There was discussion about possible lumbar puncture at last appointment should her headaches be worsening, which they are. However will reach out to collaborating physician to see if this is needed or will trial titrating up on Topamax first. Discussed at length the signs and symptoms that would warrant going to the emergency department and patient is amenable. Patient agreeable to treatment plan of care at this time, all questions were answered. Patient follow-up in 6 to 8 weeks or sooner should any symptoms change or worsen. Plan: All options for treatment discussed. Preventative: Topamax 100 mg Abortive: Excedrin Follow-up: 6-8 weeks TODAY 02/10/2024 Patient reports she has a history of IIH in 2020 when she was with her daughter. LP in 2020, which relieved pressure. After of her daughter, testing repordtedly normal. She was ordered topamax with Dr. Dodge at the beginning of this year. She had her daughter in 2021.Completed at [facility] and [facility]. MRI brain with Dr. Dodge were WNL. She was last seen by Reshma Winkler PA-C at the beginning of the year. Since her last visit, states she did not follow up with rheumatology or infectious disease. She was thought to have Lyme disease, but secondary testing came back negative. She is currently trying to become , so she discontinued her topamax. Not taking anything right now for headaches, besides regular excedrin. No double vision, has had two eye exams since her last appointment. Last exam was in . Reportedly exam was within normal limits. Denies double vision, visual changes, visual changes. Was previously taking Excedrin Drug Free head care for headaches. This had completely stopped her headaches. She has been off of this medication for 3 weeks and headaches have become almost daily since stopping this medication. She does take regular Excedrin, which decreases her pain as well. Taking propranolol 10 mg for anxiety as needed. This was prescribed by her mental health phsycian. She just started working in front of a computer screen, which has worsened headaches. Not as bad on the weekends. Migraine HPI HEADACHE LOCATION: occipital region and occasional in the frontal region Onset: Headaches began in 2020, increased again 3 weeks ago, currently also on CPAP which helps her headaches Quality: pressure Photophobia? No Phonophobia? No Nausea? Yes Vomitting? No Aura? No None Worse with activity? Yes, sometimes Severe? Yes, 7/10 pain, after excedrin it is gone within an hour Frequency: daily, but the patient has headache free intervals Duration? Usually lasts a few hours until she takes excedrin Caffeine intake? Occasional coffee Water intake? Four to seven 8 ounce glasses daily Triggers? None Sleep concerns? CPAP has been helping her sleep Mood concerns? Yes, seeing psychologist and counselor for depression/anxiety History of concussion? No Autonomic features: None Previous/Current Headache treatment Preventative: Effexor Lexapro Topamax welbutrin Rescue: Tylenol Iboprofen Excedrin Diamox 500 BID # of doses of abortive medications per month: < 10 days/month (or 8 for (more content not included)...[facility]12-13-2024 Telephone encounter Note* Telephone Encounter - Alix Smith LPN - 01/30/2024 3:16 PM EST Form faxed to [phone] with confirmation received. Alix Smith LPN [facility]12-13-2024 Miscellaneous Notes* Telephone Encounter - Alix Smith LPN - 01/30/2024 3:16 PM EST Form faxed to [phone] with confirmation received. Alix Smith LPN * Telephone Encounter - Bryant Grimm MD - 01/30/2024 3:05 PM EST Patient sees Neuro for her pseudotumor Cerebri and Psych will rochelle to get input from Dr. Andrew. Please fax back form stating this. * Telephone Encounter - Parisa Jasso LPN - 01/29/2024 8:37 AM EST Received vis [employer] Medical Clearance form for Atomoxetine Medication. Form on your desk for completion. Fax back to [phone]. Parisa Jasso LPN documented in this encounterUniversity Hospitals Beachwood Medical Center12-13-2024 Telephone encounter Note * Telephone Encounter - Bryant Grimm MD - 01/30/2024 3:05 PM EST Patient sees Neuro for her pseudotumor Cerebri and Psych will rochelle to get input from Dr. Andrew. Please fax back form stating this. [facility]12-12-2024 Telephone encounter Note* Telephone Encounter - Parisa Jasso LPN - 01/29/2024 8:37 AM EST Received vis [employer] Medical Clearance form for Atomoxetine Medication. Form on your desk for completion. Fax back to [phone]. Parisa Jasso LPN [facility]11-27-2024 Telephone encounter Note* Telephone Encounter - Bryant Grimm MD - 01/14/2024 8:59 AM EST Noted. [facility]11-27-2024 Miscellaneous Notes* Telephone Encounter - Bryant Grimm MD - 01/14/2024 8:59 AM EST Noted. documented in this encounterUniversity Hospitals Beachwood [facility] Center09-20-2024 History of Present illness Narrative* Janiya Tanner APRN.CRITICAL CARE EDUCATOR - 11/07/2023 2:30 PM EDT Images from the original note were not included. [facility] Follow up/ Established patient visit Date of last visit : 06/02/2023 The following Impression/Plan was copied and pasted from the patient's last Sleep Disorders Center visit on 06/02/23: IMPRESSION: Obstructive sleep apnea (primary encounter diagnosis) Excessive daytime sleepiness Shaheed Jackson is a 22 year old female with JUAN M and EDS. She felt great after her PAP titrationstudy, had great energy the next day. PMH of pseudotumor cerebri, HLD, ADHD, MDD, PANCHO, oesity. PLAN: - Will start Auto CPAP 8-10 cmH2O - I will have a prescription sent to a DME (durable medical equipment) company - [facility] whowill be calling you in the next 1-2 weeks or so. Please call them directly or us if you do not hearfrom them in this time frame. - You should be eligible for new supplies approximately every 3-6 months, depending on your insurance coverage. - If your mask doesn't fit well, call the DME company before 30 days are up to get a new mask without an additional charge. - Insurance requires regular usage and periodic office follow ups for PAP therapy, to continue to cover supplies. - Follow up in 3 months in the office. Recommend scheduling this appointment now to ensure the besttime for you. Janiya Tanner APRN.CRITICAL CARE EDUCATOR Here for follow up for JUAN M, doing great with autoCPAP. Much less daytime sleepiness. Sleep is significantly improved. No drowsy driving. Has a new job that she really likes--working at [employer] in [place] office. Saw primary care today for depression, her effexor was increased, she has upcoming appointment withpsych SLEEP APNEA Sleep apnea type : JUAN M, Most Recent Apnea-Hypopnea Index (AHI): 12 on HSAT Treatment : PAP therapy DME: [facility] PAP History: Uses AutoPAP for 8.5 hours per night, 7 nights per week. Current PAP settin-10 cm H2O. Difficulties with AutoPAP: None Reviewed objective PAP compliance data: Mask type: full face mask Mask issues: mostly no, occas leak There is a perceived benefit by the patient: less awakenings, better sleep 12/02/22 Dr Dodge initial (and only) appointment for pseudotumor cerebri, he has referred her to [facility], never seen there SLEEP HYGIENE QUESTIONS: Bedtime : 9 am Wake up Time : 5 am Time it takes to fall sleep : quick Number of times patient wakes up per night : none except when gets home from work Estimated total sleep time ( in a 24 hour period of time) : 8 Naps : No PATIENT-ENTERED QUESTIONNAIRE SLEEP SCORES 10/31/2023 Sleep Questions Reason for visit: Sleep apnea On average, hours of sleep in 24 hours: 12 Average hours of CPAP per night: 7 Percent of nights CPAP used at least 4 hours: 100 Accidents or near accidents due to drowsy drivin 02/17/2023 05/26/2023 10/31/2023 [place] Sleepiness Scale Score 16 (Excessive daytime sleepiness present) 15 (Excessive daytime sleepiness present) 13 (Excessive daytime sleepiness present) 12/26/2022 05/26/2023 10/31/2023 PROMIS CAT Sleep Disturbance PROMIS Sleep Disturbance T-Score 61 (moderate) 65 (moderate) 51 (within normal limits) PROMIS Sleep Disturbance Percentile 14 7 46 12/26/2022 05/26/2023 Insomnia Severity Index Score 19 19 23 02/17/2023 05/26/2023 Restless Leg Syndrome Score 20 (Moderate symptoms) 20 (Moderate symptoms) 09/04/2023 10/31/2023 10/31/2023 PHQ-9 Score 22 21 20 05/21/2023 08/15/2023 10/31/2023 PROMIS Global Health - (T-Scores - the mean of general population = 50. Five points is a clinicallymeaningful difference.) Physical T-Score 37.4 34.9 34.9 34.9 Mental T-Score 31.3 33.8 25.1 25.1 SLEEP RELATED ROS Review of Systems Neurological: Negative for headaches (much fewer headaches since starting PAP and OTC headache supplement). ALLERGIES No Known Allergies CURRENT MEDICATIONS: CRANBERRY ORAL Take by mouth once daily. venlafaxine ER (EFFEXOR XR) 75 mg 24 hr capsule Take 1 capsule by mouth once daily. Take with the 150mg capsule for total daily dose of 225mg. venlafaxine ER (EFFEXOR XR) 150 mg 24 hr capsule Take 1 capsule by mouth once daily. Take with the 75mg capsule for total daily dose of 225mg. buPROPion XL (WELLBUTRIN XL) 300 mg 24 hr tablet Take 1 tablet by mouth once daily. flaxseed oil (OMEGA 3 ORAL) Take by mouth as directed. BENEFIBER, WHEAT DEXTRIN, ORAL Take by mouth. medical supply, miscellaneous (MISCELLANEOUS MEDICAL SUPPLY MISC) 2 tablets once daily. Obvi collagenic burn aspirin/acetaminophen/caffeine (EXCEDRIN MIGRAINE ORAL) Take 1 tablet by mouth once daily. Drug free head care CPAP/BIPAP/OTHER autoCPAP 8-10 cmH2O [facility] acetaminophen 325 mg cap Take by mouth. cetirizine (ZYRTEC) 10 mg tablet Take 1 tablet by mouth once daily. Ibuprofen 200 mg cap Take by mouth every 4 hours as needed. FOR PAIN. PHYSICAL EXAMINATION: Vital Signs: BP 120/86 Pulse 108 Resp 16 Wt 117.5 kg (259 lb) LMP 07/24/2023 (Approximate) SpO2 97% PHYSICAL EXAM: General appearance: pleasant, NAD Mental status: alert and oriented, able to provide own history Constitutional: WNL Skin: No visible rashes on exposed skin Neuro: No focal deficits observed, no tremors IMPRESSION: Juan M on cpap (primary encounter diagnosis) Shaheed Jackson is a 23 year old female with JUAN M very well managed with autoCPAP. She reports significant benefits. Her daytime sleepiness is no longer problematic. --Patient is compliant with PAP therapy and reports subjective benefits from treatment --We reviewed PAP compliance report; AHI is normalized She can let me know when she wants to switch DME to [facility] PLAN: - Continue Auto CPAP at 8-10 cmH2O. - Remember to clean your mask and equipment regularly, as directed. - You should be eligible for new supplies approximately every 3-6 months, depending on your insurance coverage. Contact your Durable Medical Equipment (DME) company for new supplies as needed. - Follow up in 12 months with LARISA. aJniya Tanner APRN.CNP documented in this encounterUniversity Hospitals Beach[facility] Center09-20-2024 History of Present illness Narrative* Lara Jimenez PA-C - 11/07/2023 12:43 PM EDT Chief Complaint Patient presents with: Depression HPI Shaheed Jackson is a 23 year old female who presents here today for depression. Patient with hx of depression. Was doing well but recently started a new job and feels like maybe that's the trigger to her worsened symptoms. She will be seeing psych soon for med management and counseling. Has not gotten established yet. Past medical history, appointments, medications, allergies reviewed. Previous Medical History PAST MEDICAL HISTORY Diagnosis Date Attention deficit hyperactivity disorder (ADHD), combined type 12/14/2014 Class 2 obesity due to excess calories without serious comorbidity with body mass index (BMI) of 37.0 to 37.9 in adult Elevated hemoglobin A1c 05/03/2022 PANCHO (generalized anxiety disorder) 05/02/2022 Hyperlipidemia, mixed 05/03/2022 Major depressive disorder with single episode 05/02/2022 Oppositional defiant disorder 11/07/2007 Paradoxical insomnia 09/30/2018 using meletonin. Pseudotumor cerebri 07/04/[address] Andrew Seasonal allergies Thrombocytosis 05/03/2022 Chronic since 2003 (500-550) Previous Surgical History PAST SURGICAL HISTORY Procedure Laterality Date SECTION HX 05/02/2021 NONE Family History FAMILY HISTORY Problem Relation Age of Onset other (Other) Mother restless leg Lipids Father Diabetes Maternal Grandmother Hypertension Maternal Grandmother other (sleep apnea) Maternal Grandmother Hypertension Maternal Grandfather other (sleep apnea) Maternal Grandfather Colon Cancer Paternal Grandmother Lipids Paternal Grandfather Diabetes Paternal Grandfather Patient Allergies ALLERGIES No Known Allergies Current Medications Current Outpatient Medications on File Prior to Visit Medication Sig CRANBERRY ORAL Take by mouth once daily. flaxseed oil (OMEGA 3 ORAL) Take by mouth as directed. BENEFIBER, WHEAT DEXTRIN, ORAL Take by mouth. medical supply, miscellaneous (MISCELLANEOUS MEDICAL SUPPLY MIS) 2 tablets once daily. Obvi collagenic burn aspirin/acetaminophen/caffeine (EXCEDRIN MIGRAINE ORAL) Take 1 tablet by mouth once daily. Drug free head care buPROPion XL (WELLBUTRIN XL) 300 mg 24 hr tablet Take 1 tablet by mouth once daily. venlafaxine ER (EFFEXOR XR) 150 mg 24 hr capsule Take 1 capsule by mouth once daily. CPAP/BIPAP/OTHER autoCPAP 8-10 cmH2O [facility] acetaminophen 325 mg cap Take by mouth. cetirizine (ZYRTEC) 10 mg tablet Take 1 tablet by mouth once daily. Ibuprofen 200 mg cap Take by mouth every 4 hours as needed. FOR PAIN. predniSONE (DELTASONE) 10 mg tablet Take 6 tabs by mouth for 3 days then 4 tabs a day for 3 days then 2 tabs a day for 3 days and then 1 tab a day for 3 days. naproxen (NAPROSYN) 500 mg tablet Take 1 tablet by mouth two times a day as needed (for pain/inflammation). Take with food. Miscellaneous Medical Supply 1 Each once daily. Nomi compact craving vitamin container,empty (PILL PAL MISC) 2 tablets once daily. Nomi sun No current facility-administered medications on file prior to visit. Social History Social History Tobacco Use Smoking status: Never Smokeless tobacco: Never Vaping Use Vaping status: Never Used Substance Use Topics Alcohol use: No Drug use: No Review of Symptoms REVIEW OF SYSTEMS See hpi EXAM: BP 120/86 (BP Site: Left Arm, BP Position: Sitting, BP Cuff Size: Large Adult) Pulse 108 Temp 36.6 C (97.9 F) Resp 18 Wt 117.5 kg (259 lb) LMP 10/06/2023 (Approximate) SpO2 97% General Appearance: Well appearing, alert, in no acute distress, well-hydrated, well nourished.. Health Maintenance List GC (Gonorrhea) Screening () Never done HIV Screening Never done Chlamydia Screening () Never done Cervical Cancer Screening Never done Covid-19 Vaccine( season) due on 11/06/2024 DTaP,Tdap,Td Vaccine(7 - Td or Tdap) due on 10/03/2024 Hepatitis B Vaccine Completed Hepatitis C Screening Completed HPV Vaccine Addressed Influenza Vaccine Discontinued Meningococcal B Vaccine: Consider Based On Risk Discontinued Data reviewed ASSESSMENT/PLAN: 1. Major depressive disorder with single episode, remission status unspecified - ICD9: 296.20, ICD10: F32.9 (primary diagnosis) Will increase effexor to 225mg. Follow up in 1 month unless she is established with psych who is going to manage meds. 2. PANCHO (generalized anxiety disorder) - ICD9: 300.02, ICD10: F41.1 As above. Lara Jimenez PA-C documented in this encounterUniversity [facility]als [facility]08-16-2024 Telephone encounter Note * Telephone Encounter - Joaquina Riddle RN - 10/03/2023 12:56 PM EDT Left message for patient to return call. Jose G had to work the 2:45 patient in to schedule. She waswondering if Shaheed could come in at 3:30 instead. [facility]08-[facility] Miscellaneous Notes* Telephone Encounter - Joaquina Riddle RN - 10/03/2023 12:56 PM EDT Left message for patient to return call. Jose G had to work the 2:45 patient in to schedule. She waswondering if Shaheed could come in at 3:30 instead. documented in this encounterUniversity Hospitals [facility]07-02-2024 Telephone encounter Note * Telephone Encounter - Mercedes Boothe MA - 08/19/2023 8:21 AM EDT Faxed Demo/[facility] order for EMG/referral placed/order sent to scanning. Mercedes Boothe MA [facility]07-02-2024 Miscellaneous Notes* Telephone Encounter - Mercedes Boothe MA - 08/19/2023 8:21 AM EDT Faxed [facility] order for EMG/referral placed/order sent to scanning. Mercedes Boothe MA documented in this encounterUniversity Hospitals [facility]07-01-2024 Telephone encounter Note * Telephone Encounter - Mercedes Boothe MA - 08/18/2023 4:03 PM EDT Patient notified and voiced understanding. Patient is feeling better from the predisone. Patient is scheduled for PT on 09/09 she thought it was scheduled for 09/07 either before or after he appointment with Janiya Felton. Please contact patient to assist with rescheduling. Mercedes Boothe MA [facility]07-01-2024 Miscellaneous Notes* Telephone Encounter - Mercedes Boothe MA - 08/18/2023 4:03 PM EDT Patient notified and voiced understanding. Patient is feeling better from the predisone. Patient is scheduled for PT on 09/09 she thought it was scheduled for 09/07 either before or after he appointment with Janiya Felton. Please contact patient to assist with rescheduling. Mercedes Boothe MA * Telephone Encounter - Mercedes Boothe MA - 08/15/2023 4:53 PM EDT Left message for patient to contact office. Mercedes Boothe MA' * Telephone Encounter - Bryant Grimm MD - 08/15/2023 4:17 PM EDT Let patient know neck x-ray was ok. documented in this encounterUniversity Hospitals [facility]06-28-2024 Telephone encounter Note * Telephone Encounter - Mercedes Boothe MA - 08/15/2023 4:53 PM EDT Left message for patient to contact office. Mercedes Boothe MA' [facility]06-28-2024 Telephone encounter Note* Telephone Encounter - Bryant Grimm MD - 08/15/2023 4:17 PM EDT Let patient know neck x-ray was ok. [facility]06[facility] History of Present illness Narrative* Ping Mendez, RT(R) - 08/15/2023 2:30 PM EDT Radiology Service Progress Note PATIENT NAME: Shaheed Jackson DATE OF SERVICE: August 15, 2023 TIME: 2:26 PM PATIENT IDENTITY VERIFICATION COMPLETED USING TWO (2) IDENTIFIERS: Name and Date of confirmedby patient verbally. FALL SCREENING: Has the patient had 2 falls in the last year or 1 fall with injury or currently using an Ambulatory Assistive Device (Walker, Cane, Wheelchair, Crutches, etc.)? No PATIENT GENDER DATA: Female. status: : No status: NO. PATIENT RELEVANT IMPLANT DATA REVIEWED: Yes PATIENT PRESENTS WITH AN IMPLANTABLE OR ATTACHED SCOUTS: No RADIOLOGY DEPARTMENT: General X-ray: Exam(s) Completed: Spine X-Ray(s): Cervical AP / LAT / OBL PERIPHERAL IV DATA: Not applicable SIGNED BY: RT Jame(R) August 15, 2023 2:26 PM documented in this encounterUniversity Hospitals [facility]06-28-2024 History of Present illness Narrative* Bryant Grimm MD - 08/15/2023 2:00 PM EDT Chief Complaint Patient presents with: Numbness HPI Shaheed Jackson is a 23 year old female who presents here today for numbness. Has been having pain from her right shoulder blade down to the base/first knuckle of her fingers. Was a sharp pain and then her whole arm was numb all the way down to her finger tips. Her left arm, every once in a while, will go numb, especially when sleeping, but in the hand only. She has been wearing the braces at night as well. Not dropping anything. Has neck pain in the back on both sides sometimes. No Hx of neck trauma. Past medical history, appointments, medications, allergies reviewed. Previous Medical History PAST MEDICAL HISTORY Diagnosis Date Attention deficit hyperactivity disorder (ADHD), combined type 12/14/2014 Class 2 obesity due to excess calories without serious comorbidity with body mass index (BMI) of 37.0 to 37.9 in adult Elevated hemoglobin A1c 05/03/2022 PANCHO (generalized anxiety disorder) 05/02/2022 Hyperlipidemia, mixed 05/03/2022 Major depressive disorder with single episode 05/02/2022 Oppositional defiant disorder 11/07/2007 Paradoxical insomnia 09/30/2018 using meletonin. Pseudotumor cerebri 07/04/[address] Andrew Seasonal allergies Thrombocytosis 05/03/2022 Chronic since 2003 (500-550) Previous Surgical History PAST SURGICAL HISTORY Procedure Laterality Date SECTION HX 05/02/2021 NONE Family History FAMILY HISTORY Problem Relation Age of Onset other (Other) Mother restless leg Lipids Father Diabetes Maternal Grandmother Hypertension Maternal Grandmother other (sleep apnea) Maternal Grandmother Hypertension Maternal Grandfather other (sleep apnea) Maternal Grandfather Colon Cancer Paternal Grandmother Lipids Paternal Grandfather Diabetes Paternal Grandfather Patient Allergies ALLERGIES No Known Allergies Current Medications Current Outpatient Medications on File Prior to Visit Medication Sig flaxseed oil (OMEGA 3 ORAL) Take by mouth as directed. naproxen (NAPROSYN) 500 mg tablet Take 1 tablet by mouth two times a day as needed (for pain/inflammation). Take with food. BENEFIBER, WHEAT DEXTRIN, ORAL Take by mouth. Miscellaneous Medical Supply 1 Each once daily. Nomi compact craving vitamin container,empty (PILL PAL MISC) 2 tablets once daily. Nomi lovin libido medical supply, miscellaneous (MISCELLANEOUS MEDICAL SUPPLY MISC) 2 tablets once daily. Obvi collagenic burn aspirin/acetaminophen/caffeine (EXCEDRIN MIGRAINE ORAL) Take 1 tablet by mouth once daily. Drug free head care buPROPion XL (WELLBUTRIN XL) 300 mg 24 hr tablet Take 1 tablet by mouth once daily. venlafaxine ER (EFFEXOR XR) 150 mg 24 hr capsule Take 1 capsule by mouth once daily. CPAP/BIPAP/OTHER autoCPAP 8-10 cmH2O [facility] acetaminophen 325 mg cap Take by mouth. cetirizine (ZYRTEC) 10 mg tablet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 helping. Patient for the most part continues to do well with the Effexor and Wellbutrin but has noticed a slight increased in irritability in the past few weeks. Her and her fiance are getting this weekend. Is feeling stressed, nervous and anxious. Does not have a lot more to do. Past medical history, appointments, medications, allergies reviewed. Previous Medical History PAST MEDICAL HISTORY Diagnosis Date Attention deficit hyperactivity disorder (ADHD), combined type 12/14/2014 Class 2 obesity due to excess calories without serious comorbidity with body mass index (BMI) of 37.0 to 37.9 in adult Elevated hemoglobin A1c 05/03/2022 PANCHO (generalized anxiety disorder) 05/02/2022 Hyperlipidemia, mixed 05/03/2022 Major depressive disorder with single episode 05/02/2022 Oppositional defiant disorder 11/07/2007 Paradoxical insomnia 09/30/2018 using meletonin. Seasonal allergies Thrombocytosis 05/03/2022 Chronic since 2003 (500-550) Previous Surgical History PAST SURGICAL HISTORY Procedure Laterality Date NONE Family History FAMILY HISTORY Problem Relation Age of Onset other (Other) Mother restless leg Lipids Father Diabetes Maternal Grandmother Hypertension Maternal Grandmother other (sleep apnea) Maternal Grandmother Hypertension Maternal Grandfather other (sleep apnea) Maternal Grandfather Colon Cancer Paternal Grandmother Lipids Paternal Grandfather Diabetes Paternal Grandfather Patient Allergies ALLERGIES No Known Allergies Current Medications Current Outpatient Medications on File Prior to Visit Medication Sig acetaZOLAMIDE SR (DIAMOX SEQUELS) 500 mg capsule Take 1 capsule by mouth two times a day. buPROPion XL (WELLBUTRIN XL) 300 mg 24 hr tablet Take 1 tablet by mouth once daily. venlafaxine ER (EFFEXOR XR) 150 mg 24 hr capsule Take 1 capsule by mouth once daily. acetaminophen 325 mg cap Take by mouth. cetirizine (ZYRTEC) 10 mg tablet Take 1 tablet by mouth once daily. Ibuprofen 200 mg cap Take by mouth every 4 hours as needed. FOR PAIN. No current facility-administered medications on file prior to visit. Social History Social History Tobacco Use Smoking status: Never Smokeless tobacco: Never Vaping Use Vaping Use: Never used Substance Use Topics Alcohol use: No Drug use: No Review of Symptoms REVIEW OF SYSTEMS GENERAL: No weight loss, malaise or fevers NECK: Negative for lumps, goiter, pain and significant neck swelling RESPIRATORY: Negative for cough, hemoptysis, wheezing, COPD, dyspnea or shortness of breath CARDIOVASCULAR: Negative for chest pain, leg swelling, hypertension, CHF or palpitations PSYCH: See HPI, Not always sleep well. She stopped the Melatonin at 10 mg because she was too tiredthe next day. ENDOCRINE: Negative for cold or heat intolerance, polyuria, polydipsia and goiter NEURO: No history of syncope, paralysis, seizures or tremors. Still getting MORRIS's EXAM: BP 124/86 (BP Site: Right Arm, BP Position: Sitting, BP Cuff Size: Large Adult) Pulse 110 Temp 36.9 C (98.4 F) Resp 16 Wt 112.5 kg (248 lb) LMP 12/27/2022 (Approximate) Last 4 Encounter Wt Readings: Date: Wt: 01/23/2023 112.5 kg (248 lb) 12/02/2022 112.6 kg (248 lb 3.2 oz) 10/22/2022 114.3 kg (252 lb) 10/17/2022 113.9 kg (251 lb) General Appearance: Well appearing, alert, in no acute distress, well-hydrated, well nourished. andObese. Neck: Supple, no adenopathy; thyroid symmetric, normal size, no bruits. Lungs: Lungs clear to auscultation. No wheezing, rhonchi, rales.. Heart: RRR without murmur, gallop, or rubs. No ectopy. Abdomen: Normal abdominal exam, Abdomen soft, non-tender. Bowel sounds normal. No masses, organomegaly. Extremities: No deformities, edema, skin discoloration, Good capillary refill. . Peripheral Pulses: Normal. Health Maintenance List GC (Gonorrhea) Screening (18-24) Never done HIV Screening Never done Chlamydia Screening (18-) Never done Covid-19 Vaccine(1) due on 07/18/2023 DTaP,Tdap,Td Vaccine(7 - Td or Tdap) due on 10/03/2024 Hepatitis B Vaccine Completed Hepatitis C Screening Completed HPV Vaccine Addressed Influenza Vaccine Discontinued Meningococcal B Vaccine: Consider Based On Risk Discontinued Data reviewed Component Latest Ref Rng & Units 05/02/2022 07/17/2022 10/17/2022 12/30/2022 WBC 3.70 - 11.00 k/uL 11.46 (H) 11.04 (H) RBC 3.90 - 5.20 m/uL 4.39 4.45 Hemoglobin 11.5 - 15.5 g/dL 12.5 12.7 Hematocrit 36.0 - 46.0 % 39.8 39.7 MCV 80.0 - 100.0 fL 90.7 89.2 MCH 26.0 - 34.0 pg 28.5 28.5 MCHC 30.5 - 36.0 g/dL 31.4 32.0 RDW-CV 11.5 - 15.0 % 14.7 14.1 Platelet Count 150 - 400 k/uL 505 (H) 532 (H) MPV 9.0 - 12.7 fL 8.2 (L) 8.2 (L) Neut% % 62.1 61.0 Abs Neut (ANC) 1.45 - 7.50 k/uL 7.11 6.74 Lymph% % 28.4 29.9 Abs Lymph 1.00 - 4.00 k/uL 3.26 3.30 [place]% % 5.7 6.3 Abs [place] <0.87 k/uL 0.65 0.69 Eosin% % 2.7 1.7 Abs Eosin <0.46 k/uL 0.31 0.19 Baso% % 0.5 0.5 Abs Baso <0.11 k/uL 0.06 0.05 Immature Gran % % 0.6 0.6 IMMATURE GRANS (ABS) <0.10 k/uL 0.07 0.07 NRBC /100 WBC 0.0 0.0 Absolute nRBC <0.01 k/uL <0.01 <0.01 DTYPE Auto Auto Total Cholesterol, Nonfasting <170 mg/dL 218 (H) Triglycerides, Nonfasting <90 mg/dL 272 (H) HDL Cholesterol, Nonfasting >45 mg/dL 28 (L) LDL Cholesterol, Nonfasting <110 mg/dL 136 (H) Non HDL Cholesterol, Nonfasting <120 mg/dL 190 (H) VLDL Cholesterol, Nonfasting <18 mg/dL 54 (H) Total Chol/HDL Ratio, Nonfasting <3.76 mg/dL 7.79 (H) LDL/HDL Ratio, Nonfasting <2.42 mg/dL 4.86 (H) Albumin 3.9 - 4.9 g/dL 4.8 Bilirubin, Total 0.2 - 1.3 mg/dL 0.4 Bilirubin, Conjug <0.2 mg/dL <0.2 Alkaline Phosphatase 34 - 123 U/L 57 AST 13 - 35 U/L 32 ALT 7 - 38 U/L 51 (H) Protein, Total 6.3 - 8.0 g/dL 7.4 Lyme IgG Western Blot Negative Negative Lyme IgG, Bands p-41 . . . Interpretation (Lyme Abs/WB) Hemoglobin A1C 4.3 - 5.6 % 6.4 (H) Estimated Average Glucose mg/dL 137 TSH 0.510 - 4.300 mIU/L 0.905 Calcium 8.5 - 10.2 mg/dL 10.3 (H) PTH, Intact 15 - 65 pg/mL 37 HCV RNA by PCR HCV RNA not detected by PCR. HCV RNA not detected by PCR. Hep B Surface Ag Negative Negative Hep A Ab, IgM Negative Negative Hep B Core Ab, IgM Negative Negative A/P ASSESSMENT/PLAN: 1. Hyperlipidemia, mixed - ICD9: 272.2, ICD10: E78.2 (primary diagnosis) - await labs - Counseled on healthy diet and regular exercise - Discussed need for and benefit of weight loss. BMI 40.58 kg/(m^2) Check - LIPID PANEL, NONFASTING - COMP METABOLIC PANEL 2. Elevated hemoglobin A1c - ICD9: 790.29, ICD10: R73.09 Check - HGB A1C 3. Pseudotumor cerebri - ICD9: 348.2, ICD10: G93.2 - management per Neuro. Will update neuro regarding the MC question she had and that her optho examin late Oct showed no papilledema. 4. Thrombocytosis - ICD9: 238.71, ICD10: D75.839 - chronic stable 5. Paradoxical insomnia - ICD9: 307.42, ICD10: F51.03 - advised going back on the melatonin but just at 5 mg QHS. 6. Attention deficit hyperactivity disorder (ADHD), combined type - ICD9: 314.01, ICD10: F90.2 - stable with current Tx. 7. PANCHO (generalized anxiety disorder) - ICD9: 300.02, ICD10: F41.1 - stable. Will see her the increased irritation resolves after the wedding. 8. Major depressive disorder with single episode, remission status unspecified - ICD9: 296.20, ICD10: F32.9 - as per #7 9. Oppositional defiant disorder - ICD9: 313.81, ICD10: F91.3 - as per #11 10. Class 2 obesity due to excess calories without serious comorbidity with body mass index (BMI) of 37.0 to 37.9 in adult - ICD9: 278.00, V85.37, ICD10: E66.09, Z68.37 - Behavioral intervention F/u 6 months WAE sooner if needed. Bryant Grimm MD documented in this [facility]11-29-2023 Miscellaneous Notes* Telephone Encounter - Nancy Dodge Jr., MD - 01/15/2023 1:02 PM EST MRI as per report did not show any evidence of an intracranial source of headache. Please determine if patient saw ophthalmology yet and if so, was there a report of papilledema or can those records be sent to us. If headache worsening despite Diamox, then possible if pseudotumor may need repeat LP. Ophthalmology notes would help in determining if papilledema. We can restart Topamax to see if improves, but if papilledema on ophthalmology exam then would likely need repeat LP. Please also try to schedule with neuro LARISA at [facility] or [facility]. Nancy Dodge MD documented in this [facility]11-15-2023 Miscellaneous Notes* Telephone Encounter - Linda Kaminski RN - 01/01/2023 4:02 PM EST Patient calls and states that she would be willing to see ID and rheumatology for lyme disease. Please place consults. Linda Kaminski RN documented in this [facility]11-15-2023 Miscellaneous Notes* Telephone Encounter - Linda Kaminski RN - 01/01/2023 4:01 PM EST Patient notified of results and provider's instructions. Patient verbalizes understanding. Linda Kaminski RN * Telephone Encounter - Bryant Grimm MD - 01/01/2023 3:02 PM EST Let patient know repeat calcium and her parathyroid hormone level were both ok. documented in this encounterUniversity Hospitals [facility] Center11-15-2023 Miscellaneous Notes* Telephone Encounter - Kenya Concepcion LPN - 01/01/2023 8:00 AM EST See message 12/30/22. Kenya Concepcion LPN * Telephone Encounter - Kenya Concepcion LPN - 01/01/2023 7:40 AM EST ----- Message from Nancy Dodge Jr., MD sent at 12/31/2022 10:21 PM EST ----- Pt with positive Lyme ab and + JOE. Would like pt to see both ID and Rheum. If patient agrees, consults will be place. Will also inform PCP. Nancy Dodge MD documented in this encounterUniversity Hospitals [facility] Center11-13-2023 History of Present illness Narrative* Allyn Caldwell RT(R) - 12/30/2022 10:00 AM EST Radiology Service Progress Note PATIENT NAME: Shaheed Bobo DATE OF SERVICE: December 30, 2022 TIME: 10:10 AM PATIENT IDENTITY VERIFICATION COMPLETED USING TWO (2) IDENTIFIERS: Name and Date of confirmedby patient verbally. FALL SCREENING: Has the patient had 2 falls in the last year or 1 fall with injury or currently using an Ambulatory Assistive Device (Walker, Cane, Wheelchair, Crutches, etc.)? No PATIENT GENDER DATA: Female. status: : No status: NO. PATIENT RELEVANT IMPLANT DATA REVIEWED: Yes RADIOLOGY DEPARTMENT: MR; Exam(s) Completed: Head: Routine Brain Sagittal Sinus MRV PERIPHERAL IV DATA: Not applicable SIGNED BY: RT Royce(R) December 30, 2022 10:10 AM documented in this encounterUniversity Hospitals Beachwood [facility] Center10-16-2023 Instructions* Patient Instructions* Nancy Dodge Jr., MD - 12/02/2022 5:54 PM EDT Please schedule appt with your eye doctor NOHEMI. 2. Please start Diamox once available. Once starting Diamox, stop the Topamax. 3. Please complete lab work. 4. You will be contacted for the sleep study. 5. If any symptoms worsen please contact us immediately. documented in this encounterUniversity Hospitals [facility]wood [facility] Center10-16-2023 History of Present illness Narrative* Nancy Dodge Jr., MD - 12/02/2022 5:28 PM EDT NEW PATIENT (CONSULT) HISTORY AND PHYSICAL EXAM PRIMARY CARE PHYSICIAN: Bryant Grimm MD REASON FOR CONSULT: Headache REFERRING PHYSICIAN: No ref. provider found CHIEF COMPLAINT: Headache Consultation requested by No ref. provider found for an opinion regarding chief complaint of Patient presents with: New Patient: Pt reported Hx Morris, daily and my final recommendations will be communicated back to the requesting physician by way of sharedmedical record or letter via US mail. HISTORY OF PRESENT ILLNESS: Shaheed Bobo is a 22 year old female, with a PMH significant for reported pseudotumor who now presents for headache. Pseudotumor diagnosed at [facility] last year. Those records not available for review. Was diagnosed by imaging and LP. [place] better after LP and started on Diamox. Was at time of event. Then was seen by neurologist at [facility] who stopped Diamox. Expressed to them that they thought weight gain associated with was cause of pseudotumor. Has been on Topamax 25mg BID for the past month through PCP. If forgets to take, headachesget bad. Headaches this time around started in September. CT brain completed at that time was unremarkable on review of images and agree with rad report. Current headache in side of head, radiates backwards and down spine. Associated photophobia. No nausea. Currently headache essentially daily. Notices tinnitus. Denies vision changes and feels that is getting better. Last saw ophthalmology was in July 2022 before symptoms started again ([place] [facility]). Rare headaches prior to . Never tested for JUAN M - +family history. Does snore. Dry mouth in AM. Sleep never refreshing. Never tested for Lyme but reports no risk. TSH Date Value Ref Range Status 05/02/2022 0.905 0.510 - 4.300 mIU/L Final Comment: If the patient is , TSH reference range varies by gestational period: First Trimester (weeks 9-12): 0.180-2.990 mIU/L Second Trimester: 0.110-3.980 mIU/L Third Trimester: 0.480-4.710 mIU/L Ray Vivar et al. A Practical Approach for the Verifications and Determination of Site- and Trimester-Specific Reference Intervals for Thyroid Function tests in . Thyroid, 2019:29:3:412-420.Ubaldo E, et al. 2017 Guidelines of the [place] Thyroid Association for the Diagnosis and Management of Thyroid Disease during and the . Thyroid, 2017:27:3:315-389. Reference ranges were not locally established for this patient's age group. The normal values are based on the following source: Estrella W, Thad V. Reference Ranges for Adults and Children: Pre-analytical Considerations. [employer] More difficulties with headache when supine (can't lie down without meds). REVIEW OF SYSTEMS GENERAL:No weight loss, malaise or fevers. HEENT:No changes in hearing or vision, no nose bleeds or other nasal problems NECK:Negative for lumps, goiter, pain and significant neck swelling RESPIRATORY: Negative for cough, wheezing or shortness of breath. CARDIOVASCULAR: Negative for chest pain, leg swelling or palpitations. GASTROINTESTINAL: Negative for abdominal discomfort, blood in stools or black stools or change in bowel habits GENITOURINARY: No history of dysuria, frequency or incontinence MUSCULOSKELETAL: Negative for joint pain or swelling, back pain or muscle pain. NEUROLOGIC:Negative for focal numbness or weakness, and dizziness or syncope, vision changes, speech/language changes, changes in gait or falls -- besides those complaints as above in HPI. SKIN:Negative for lesions, rash, and itching. HEMATOLOGIC/LYMPHATIC/IMMUNOLOGIC:Negative for prolonged bleeding, bruising easily or swollen nodes. ENDOCRINE: Negative for cold or heat intolerance, polyuria, polydipsia and goiter. The remainder of the ROS was reviewed and is negative. LAB/IMAGING: Reviewed and include: WBC (k/uL) Date Value 10/17/2022 11.04 (H) RBC (m/uL) Date Value 10/17/2022 4.45 Hemoglobin (g/dL) Date Value 10/17/2022 12.7 Hematocrit (%) Date Value 10/17/2022 39.7 MCV (fL) Date Value 10/17/2022 89.2 MCH (pg) Date Value 10/17/2022 28.5 MCHC (g/dL) Date Value 10/17/2022 32.0 RDW-CV (%) Date Value 10/17/2022 14.1 Platelet Count (k/uL) Date Value 10/17/2022 532 (H) MPV (fL) Date Value 10/17/2022 8.2 (L) Glucose (mg/dL) Date Value 05/02/2022 103 (H) BUN (mg/dL) Date Value 05/02/2022 13 Creatinine (mg/dL) Date Value 05/02/2022 0.53 (L) Sodium (mmol/L) Date Value 05/02/2022 138 Potassium (mmol/L) Date Value 05/02/2022 4.2 Chloride (mmol/L) Date Value 05/02/2022 102 CO2 (mmol/L) Date Value 05/02/2022 25 Protein, Total (g/dL) Date Value 10/17/2022 7.6 Albumin (g/dL) Date Value 10/17/2022 4.8 Calcium, Total (mg/dL) Date Value 10/17/2022 10.3 (H) Alkaline Phosphatase (U/L) Date Value 10/17/2022 47 Bilirubin, Total (mg/dL) Date Value 10/17/2022 0.4 AST (U/L) Date Value 10/17/2022 24 ALT (U/L) Date Value 10/17/2022 32 MEDICATIONS: buPROPion XL (WELLBUTRIN XL) 300 mg 24 hr tablet Take 1 tablet by mouth once daily. venlafaxine ER (EFFEXOR XR) 150 mg 24 hr capsule Take 1 capsule by mouth once daily. acetaminophen 325 mg cap Take by mouth. cetirizine (ZYRTEC) 10 mg tablet Take 1 tablet by mouth once daily. Ibuprofen 200 mg cap Take by mouth every 4 hours as needed. FOR PAIN. topiramate (TOPAMAX) 25 mg tablet Take 1 tablet by mouth daily at bedtime for 7 days, THEN 1 tablettwice daily. HISTORIES PAST MEDICAL HISTORY Diagnosis Date Attention deficit hyperactivity disorder (ADHD), combined type 12/14/2014 Class 2 obesity due to excess calories without serious comorbidity with body mass index (BMI) of 37.0 to 37.9 in adult Elevated hemoglobin A1c 05/03/2022 PANCHO (generalized anxiety disorder) 05/02/2022 Hyperlipidemia, mixed 05/03/2022 Major depressive disorder with single episode 05/02/2022 Oppositional defiant disorder 11/07/2007 Paradoxical insomnia 09/30/2018 using meletonin. Seasonal allergies Thrombocytosis 05/03/2022 Chronic since 2003 (500-550) FAMILY HISTORY Problem Relation Age of Onset other (Other) Mother restless leg Lipids Father Diabetes Maternal Grandmother Hypertension Maternal Grandmother other (sleep apnea) Maternal Grandmother Hypertension Maternal Grandfather other (sleep apnea) Maternal Grandfather Colon Cancer Paternal Grandmother Lipids Paternal Grandfather Diabetes Paternal Grandfather SOCIAL HISTORY Social History Tobacco Use Smoking status: Never Smokeless tobacco: Never Vaping Use Vaping Use: Never used Substance Use Topics Alcohol use: No Drug use: No PHYSICAL EXAMINATION BP 121/77 Pulse 110 Resp 18 Wt 112.6 kg (248 lb 3.2 oz) LMP 11/29/2022 SpO2 98% No GENERAL EXAM: General appearance: NAD, pleasant. HEENT: NC/AT, nasal congestion absent, no oral lesions, membranes moist. Lungs: CTA bilaterally. CV: RRR nl S1, S2 Extr: No cyanosis, clubbing or edema. Skin: Cool to touch. NEUROLOGICAL EXAM: General: Awake, alert, oriented x3 (person,place,time), speech fluent, no dysarthria; comprehension, naming, repetition intact. CN: PERRL, fundi with what appears to be mild-mod arlette papilledema, EOMI and without nystagmus, VFF to confrontation, face symmetric, hearing is intact to finger rub bilaterally, palate and tongue movements are intact and symmetric. SCM and trapezius strength normal. Motor: Normal tone, bulk and strength (5/5) bilaterally (throughout extremities x4). Reflexes: 2/4 and symmetric, plantar stimulation is flexor. Coordination: FNF, SWATI, HTS intact. No tremors. Sensation: LT, vibration, temperature intact throughout. No evidence of neglect. Gait: Stable with normal stride and arm swing. Assessment and Plan: ASSESSMENT/PLAN: 1. Pseudotumor cerebri - ICD9: 348.2, ICD10: G93.2 Patient presents with daily headache, worse when supine and during night time and morning hours, tinnitus and with noted papilledema on exam as well as headache location suggestive of pseudotumor. Given prior diagnosis of pseudotumor last year, and symptoms started since off diamox, further supports the the suspected diagnosis. At this time, need to treat as well as determine dx. Ddx d/w pt as well as treatment plan in detail. We discussed option of repeat lumbar puncture immediately but with no visual changes patient would like to first try to treat with meds. We also discussed the extremes of possible therapy including CASTING INSPECTOR shunt. She is not on an OCP which would increase risk for pseudotumor. Plan as follows: To evaluate for other cause of pseudotumor, following labs: - SED RATE WESTERGREN - VITAMIN B12 BLOOD - LYME AB LATE >30 DAYS SYMPTOMS - JOE BY IFA WITH REFLEX Patient endorses s/s of JUAN M, and as untreated JUAN M could increase risk for pseudotumor will get HSATto further evaluation: - HOME SLEEP APNEA TEST (HSAT) Prior imaging not available. Will repeat MRI brain to determine an intracranial cause for increasedpressure including mass lesion. Will also get MRV to evaluate for venous stenosis. - MRI BRAIN WO IVCON - MRV BRAIN WO IVCON For meds, will start on Diamox 500mg BID and d/c Topamax once Diamox started. SE and ADRs d/w pt. Pt advised to schedule ocular evaluation with her senior financial reporting analyst NOHEMI. Follow up 4 weeks or sooner prn. Pt advised to contact us immediately I worsening of or new symptoms. Nancy Dodge MD Medical Decision Making: Problems: Moderate: 1+ chronic illnesses with change Data: Unique test result(s) reviewed: 1 Unique test(s) ordered: 2 Risk: Moderate: Drug management Medical Decision Making Level: 4 - Moderate * Jacob Menjivar LPN - 12/02/2022 5:04 PM EDT 10/16/2022 PROMIS Global Health Physical Health Summary Physical health: Poor Everyday physical activity, ability: Completely Fatigue: Very severe Pain level: 2 General health: Poor Social activities/roles, ability: Fair Physical Health T-Score (Fair) Physical Health Percentile PROMIS Global Health Mental Health Summary Quality of life: Good Mental health (mood,thinking): Fair Social satisfaction: Good Emotional problems (anxious,depressed): Always Mental Health T-Score (Fair) Mental Health Percentile Percentiles provide an indication of how a patient's score ranks in relation to the [place] general population. > 31st percentile is within normal limits or better *< 31st percentile is at least SD worse than population, which may be clinically relevant < 16th percentile is at least 1 SD worse than population and warrants attention 11/14/2022 Sleep Apnea Probability Snores loudly: No Tired, fatigued or sleepy in daytime: Yes Stops breathing or choking/gasping during sleep: No High blood pressure: No Sleep Apnea Probability Score: (Sleep study not recommended) documented in this encounterUniversity Hospitals [facility]09-18-2023 History of Present illness Narrative* Pamela Horne RT(R) - 11/04/2022 1:00 PM EDT Radiology Service Progress Note PATIENT NAME: Shaheed Bobo DATE OF SERVICE: November 04, 2022 TIME: 1:58 PM PATIENT IDENTITY VERIFICATION COMPLETED USING TWO (2) IDENTIFIERS: Name and Date of confirmedby patient verbally. FALL SCREENING: Has the patient had 2 falls in the last year or 1 fall with injury or currently using an Ambulatory Assistive Device (Walker, Cane, Wheelchair, Crutches, etc.)? No PATIENT GENDER DATA: Female. status: : No status: NO. PATIENT RELEVANT IMPLANT DATA REVIEWED: Yes RADIOLOGY DEPARTMENT: CT; Exam(s) Completed: Brain PERIPHERAL IV DATA: Not applicable SIGNED BY: RT Pat(R) November 04, 2022 1:58 PM documented in this encounterUniversity Hospitals [facility]09-05-2023 History of Present illness Narrative* Norma Gaspar PA-C - 10/22/2022 6:58 PM EDT This note was created using Patent [employer]. Subjective Shaheed Bobo is a 22 year old female. HPI Presents with a chief complaint of right ankle pain and swelling for 2 days. She denies any known injury. Denies any new exercises. She has a history of a fracture of the right ankle when she was a child. Did not have surgery. She has taken some Tylenol for pain. Review of Systems Musculoskeletal: Right foot and ankle pain All other systems reviewed and are negative. PAST MEDICAL HISTORY Diagnosis Date Attention deficit hyperactivity disorder (ADHD), combined type 12/14/2014 Class 2 obesity due to excess calories without serious comorbidity with body mass index (BMI) of 37.0 to 37.9 in adult Elevated hemoglobin A1c 05/03/2022 PANCHO (generalized anxiety disorder) 05/02/2022 Hyperlipidemia, mixed 05/03/2022 Major depressive disorder with single episode 05/02/2022 Oppositional defiant disorder 11/07/2007 Paradoxical insomnia 09/30/2018 using meletonin. Seasonal allergies Thrombocytosis 05/03/2022 Chronic since 2003 (500-550) Current Outpatient Medications Medication Sig Dispense Refill buPROPion XL (WELLBUTRIN XL) 300 mg 24 hr tablet Take 1 tablet by mouth once daily. 90 tablet 1 venlafaxine ER (EFFEXOR XR) 150 mg 24 hr capsule Take 1 capsule by mouth once daily. 90 capsule 1 topiramate (TOPAMAX) 25 mg tablet Take 1 tablet by mouth daily at bedtime for 7 days, THEN 1 tablettwice daily. 60 tablet 1 acetaminophen 325 mg cap Take by mouth. cetirizine (ZYRTEC) 10 mg tablet Take 1 tablet by mouth once daily. 30 tablet 0 Ibuprofen 200 mg cap Take by mouth every 4 hours as needed. FOR PAIN. 0 No current facility-administered medications for this visit. PAST SURGICAL HISTORY Procedure Laterality Date NONE FAMILY HISTORY Problem Relation Age of Onset other (Other) Mother restless leg Lipids Father Diabetes Maternal Grandmother Hypertension Maternal Grandmother other (sleep apnea) Maternal Grandmother Hypertension Maternal Grandfather other (sleep apnea) Maternal Grandfather Colon Cancer Paternal Grandmother Lipids Paternal Grandfather Diabetes Paternal Grandfather Social History Tobacco Use Smoking status: Never Smokeless tobacco: Never Vaping Use Vaping Use: Never used Substance Use Topics Alcohol use: No Drug use: No Objective BP 134/84 Pulse 112 Temp 36.6 C (97.8 F) Resp 18 Wt 114.3 kg (252 lb) LMP 06/26/2022 (Approximate) SpO2 98% Physical Exam Vitals reviewed. Constitutional: Appearance: Normal appearance. HENT: Head: Normocephalic and atraumatic. Musculoskeletal: Comments: Exam of the right foot reveals tenderness to palpation to the anterior midfoot. Pain on dorsiflexion and plantarflexion. Pedal pulses 2+. Some mild tenderness over the lateral malleolus of the ankle. No tenderness over the Achilles. No redness or bruising. Some mild swelling noted anteriorly over the foot. Skin: General: Skin is warm and dry. Neurological: Mental Status: She is alert. Assessment and Plan ASSESSMENT/PLAN: 1. Foot pain, right - ICD9: 729.5, ICD10: M79.671 X-rays are negative for bony injury. I feel she does have a strain. I did place an Porfirio wrap on her.Discussed rest, ice, elevation. OTC analgesia. Follow-up with PCP if not improving. - XR ANKLE GENERAL 3V AP/LAT/OBL RIGHT - XR FOOT GENERAL 3V AP/LAT/OBL RIGHT Norma Gaspar PA-C documented in this encounterUniversity Hospitals [facility]09-05-2023 History of Present illness Narrative* Ping Mendez, RT(R) - 10/22/2022 5:50 PM EDT Radiology Service Progress Note PATIENT NAME: Shaheed Bobo DATE OF SERVICE: October 22, 2022 TIME: 5:41 PM PATIENT IDENTITY VERIFICATION COMPLETED USING TWO (2) IDENTIFIERS: Name and Date of confirmedby patient verbally. FALL SCREENING: Has the patient had 2 falls in the last year or 1 fall with injury or currently using an Ambulatory Assistive Device (Walker, Cane, Wheelchair, Crutches, etc.)? No PATIENT GENDER DATA: Female. status: : No status: NO. PATIENT RELEVANT IMPLANT DATA REVIEWED: Yes RADIOLOGY DEPARTMENT: General X-ray: Exam(s) Completed: Lower Extremity X- Ray(s): Ankle, Right and Wt. Bearing and Foot, Right and Wt. Bearing PERIPHERAL IV DATA: Not applicable SIGNED BY: RT Jame(R) October 22, 2022 5:41 PM documented in this encounterUniversity Hospitals [facility]09-01-2023 Miscellaneous Notes* Telephone Encounter - Anuradha Bowling Ma - 10/18/2022 2:58 PM EDT Pt notified and voiced understanding. Anuradha Bowling Ma * Telephone Encounter - Bryant Grimm MD - 10/18/2022 2:41 PM EDT Let patient know liver functions are all normal. Her white blood cell count is normal. The platelets are still elevated but looking back in her chart this has been stable and chronic since at least 2003. Needs no further workup. Ca is ok at 10.3. just slightly above normal of 10.2. placed order to repeat in a month. documented in this encounterUniversity Hospitals [facility]08-31-2023 History of Present illness Narrative* Lara Jimenez PA-C - 10/17/2022 11:04 AM EDT Chief Complaint Patient presents with: Headache: And medication refills HPI Shaheed Bobo is a 22 year old female who presents here today for Above Complaints.. Patient with hx of pseudotumor and papilledema. Was previously treated by neurology with diamox butstopped the medication a little over a year ago when she was . Over the past couple weeks she has noted more headache symptoms and feels pressure in her head. No vision changes. Up to date with her vision checks. Past medical history, appointments, medications, allergies reviewed. Previous Medical History PAST MEDICAL HISTORY Diagnosis Date Attention deficit hyperactivity disorder (ADHD), combined type 12/14/2014 Class 2 obesity due to excess calories without serious comorbidity with body mass index (BMI) of 37.0 to 37.9 in adult Elevated hemoglobin A1c 05/03/2022 PANCHO (generalized anxiety disorder) 05/02/2022 Hyperlipidemia, mixed 05/03/2022 Major depressive disorder with single episode 05/02/2022 Oppositional defiant disorder 11/07/2007 Paradoxical insomnia 09/30/2018 using meletonin. Seasonal allergies Previous Surgical History PAST SURGICAL HISTORY Procedure Laterality Date NONE Family History FAMILY HISTORY Problem Relation Age of Onset other (Other) Mother restless leg Lipids Father Diabetes Maternal Grandmother Hypertension Maternal Grandmother other (sleep apnea) Maternal Grandmother Hypertension Maternal Grandfather other (sleep apnea) Maternal Grandfather Colon Cancer Paternal Grandmother Lipids Paternal Grandfather Diabetes Paternal Grandfather Patient Allergies ALLERGIES No Known Allergies Current Medications Current Outpatient Medications on File Prior to Visit Medication Sig acetaminophen 325 mg cap Take by mouth. cetirizine (ZYRTEC) 10 mg tablet Take 1 tablet by mouth once daily. Ibuprofen 200 mg cap Take by mouth every 4 hours as needed. FOR PAIN. No current facility-administered medications on file prior to visit. Social History Social History Tobacco Use Smoking status: Never Smokeless tobacco: Never Vaping Use Vaping Use: Never used Substance Use Topics Alcohol use: No Drug use: No Review of Symptoms REVIEW OF SYSTEMS See hpi EXAM: BP 128/80 (BP Site: Left Arm, BP Position: Sitting, BP Cuff Size: Large Adult) Pulse 90 Temp 36.1 C (97 F) Resp 18 Wt 113.9 kg (251 lb) LMP 06/26/2022 (Approximate) General Appearance: Well appearing, alert, in no acute distress, well-hydrated, well nourished.. Eyes: Anicteric sclera. Pupils are equally round and reactive to light. Extraocular movements are intact. . Neck: Supple, no adenopathy; thyroid symmetric, normal size, no bruits. Lungs: Lungs clear to auscultation. No wheezing, rhonchi, rales.. Heart: RRR without murmur, gallop, or rubs. No ectopy. Neurologic: Negative findings: speech normal, mental status intact, cranial nerves 2-12 intact, gait, including heel, toe, and tandem walking normal, reflexes normal and symmetric. Health Maintenance List GC (GONORRHEA) SCREENING (18-24) Never done HIV SCREENING Never done CHLAMYDIA SCREENING (18-24) Never done COVID-19 VACCINE(1) due on 07/18/2023 DTAP,TDAP,TD(7 - Td or Tdap) due on 10/03/2024 HEPATITIS B Completed HEPATITIS C SCREENING Completed HPV VACCINE Addressed INFLUENZA Discontinued MENINGOCOCCAL B: Consider based on risk Discontinued Data reviewed ASSESSMENT/PLAN: 1. Pseudotumor - ICD9: [id number], ICD10: G93.2 (primary diagnosis) Will get repeat CT scan Otherwise follow up with neuro - CT BRAIN WO IVCON 2. Headache, unspecified headache type - ICD9: 784.0, ICD10: R51.9 Start [address] Check [address]. Explained to patient that I am uncomfortable with prescribing diamox as it's not a medication I am familiar with. Keep follow up with neuro. - CT BRAIN WO IVCON Lara Jimenez PA-C documented in this encounterUniversity Hospitals [facility]06-19-2023 Miscellaneous Notes* Telephone Encounter - Bryant Grimm MD - 08/05/2022 9:50 PM EDT The following approved medication requests have been transmitted electronically. Requested Prescriptions Signed Prescriptions Disp Refills venlafaxine ER (EFFEXOR XR) 150 mg 24 hr capsule 90 capsule 1 Sig: TAKE 1 CAPSULE BY MOUTH ONCE DAILY Authorizing Provider: BRYANT GRIMM MD * Telephone Encounter - Parisa Jasso LPN - 08/05/2022 2:48 PM EDT Refilled today and pharm sent update. See pharm comment: Pharmacy comment: Alternative Requested:INSURANCE WILL ONLY PAY FOR 90 DAYS; NO REFILLS. documented in this encounterUniversity Hospitals [facility]06-19-2023 Miscellaneous Notes* Telephone Encounter - Carloyn Farris MA - 08/05/2022 9:23 AM EDT Patient has been identified by name and date of : Yes Requested Prescriptions Pending Prescriptions Disp Refills venlafaxine ER (EFFEXOR XR) 150 mg 24 hr capsule 30 capsule 5 Sig: Take 1 capsule by mouth once daily. RX INSTRUCTIONS: Patient aware RX will be sent to pharmacy. No need to notify patient. Patient last office visit: 07/17/22 Patient next office visit: 01/29/23 Pt requesting medication be sent to [facility]. RX sent to [facility] on 05/02/22. Carolyn Farris MA documented in this encounterUniversity Hospitals [facility]06-02-2023 Miscellaneous Notes* Telephone Encounter - Ewelina Lyons RN - 07/19/2022 8:05 AM EDT Phoned patient and given provider's message below with verbalized understanding. Patient agreeable. * Telephone Encounter - Bryant Grimm MD - 07/18/2022 6:46 PM EDT Let patient know testing for Hep A,B and were all negative. Calcium level is lower but still above normal. Will repeat in a month. The parathyroid level was normal and this regulates calcium. Liver functions showed one lab value is back to normal and the other is lower but still above normal. Will repeat in a month. CBC showed a slightly elevated white blood cell count and elevated platelets. Will repeat in a month. Orders placed. documented in this encounterUniversity Hospitals [facility]05-31-2023 History of Present illness Narrative* Lara Jimenez PA-C - 07/17/2022 11:40 AM EDT Chief Complaint Patient presents with: Recheck: depression HPI Shaheed Bobo is a 21 year old female who presents here today for recheck. Patient was started on wellbutrin XL last month. Has noted benefit in her energy levels since this addition. However this past week has been more stressful again. States she lost her job. Does have a new one lined up but the situation has been more depressed. Past medical history, appointments, medications, allergies reviewed. Previous Medical History PAST MEDICAL HISTORY Diagnosis Date Attention deficit hyperactivity disorder (ADHD), combined type 12/14/2014 Class 2 obesity due to excess calories without serious comorbidity with body mass index (BMI) of 37.0 to 37.9 in adult Elevated hemoglobin A1c 05/03/2022 PANCHO (generalized anxiety disorder) 05/02/2022 Hyperlipidemia, mixed 05/03/2022 Major depressive disorder with single episode 05/02/2022 Oppositional defiant disorder 11/07/2007 Paradoxical insomnia 09/30/2018 using meletonin. Seasonal allergies Previous Surgical History PAST SURGICAL HISTORY Procedure Laterality Date NONE Family History FAMILY HISTORY Problem Relation Age of Onset other (Other) Mother restless leg Lipids Father Diabetes Maternal Grandmother Hypertension Maternal Grandmother other (sleep apnea) Maternal Grandmother Hypertension Maternal Grandfather other (sleep apnea) Maternal Grandfather Colon Cancer Paternal Grandmother Lipids Paternal Grandfather Diabetes Paternal Grandfather Patient Allergies ALLERGIES No Known Allergies Current Medications Current Outpatient Medications on File Prior to Visit Medication Sig buPROPion XL (WELLBUTRIN XL) 150 mg 24 hr tablet Take 1 tablet by mouth once daily. venlafaxine ER (EFFEXOR XR) 150 mg 24 hr capsule Take 1 capsule by mouth once daily. acetaminophen 325 mg cap Take by mouth. cetirizine (ZYRTEC) 10 mg tablet Take 1 tablet by mouth once daily. Ibuprofen 200 mg cap Take by mouth every 4 hours as needed. FOR PAIN. No current facility-administered medications on file prior to visit. Social History Social History Tobacco Use Smoking status: Never Smokeless tobacco: Never Vaping Use Vaping Use: Never used Substance Use Topics Alcohol use: No Drug use: No Review of Symptoms REVIEW OF SYSTEMS See hpi EXAM: BP 140/96 (BP Site: Left Arm, BP Position: Sitting, BP Cuff Size: Large Adult) Pulse 98 Temp 36.6 C (97.8 F) Resp 16 Wt 114.8 kg (253 lb) LMP 06/26/2022 (Approximate) BP 131/86 (BP Site: Left Arm, BP Position: Sitting, BP Cuff Size: Extra Large Adult) Pulse 72 Temp 36.6 C (97.8 F) Resp 16 Wt 114.8 kg (253 lb) LMP 06/26/2022 (Approximate) General Appearance: Well appearing, alert, in no acute distress, well-hydrated, well nourished.. Health Maintenance List GC (GONORRHEA) SCREENING (18-24) Never done HEPATITIS C SCREENING Never done HIV SCREENING Never done CHLAMYDIA SCREENING (18-24) Never done COVID-19 VACCINE(1) due on 07/18/2023 DTAP,TDAP,TD(7 - Td or Tdap) due on 10/03/2024 HEPATITIS B Completed MENINGOCOCCAL CONJUGATE Completed HPV VACCINE Addressed INFLUENZA Discontinued MENINGOCOCCAL B: Consider based on risk Discontinued Data reviewed ASSESSMENT/PLAN: 1. Major depressive disorder with single episode, remission status unspecified - ICD9: 296.20, ICD10: F32.9 (primary diagnosis) Improved overall. Will increase wellbutrin to 300mg. Patient to update me via [employer] in 1 month or rto if not improving 2. PANCHO (generalized anxiety disorder) - ICD9: 300.02, ICD10: F41.1 As above. Lara Jimenez PA-C documented in this encounterUniversity Hospitals [facility]04-21-2023 Miscellaneous Notes* Telephone Encounter - Parisa Jasso LPN - 06/07/2022 8:27 AM EDT Please see pt's message. Parisa Jasso LPN documented in this encounterUniversity Hospitals [facility]04-13-2023 History of Present illness Narrative* Lara Jimenez PA-C - 05/30/2022 9:31 AM EDT Chief Complaint Patient presents with: Recheck HPI Shaheed Bobo is a 21 year old female who presents here today for recheck. Patient states she is noticing her moods have improved with the higher dose of effexor. However she is still struggling some with energy and motivation. She states she does okay at work but when she gets home and has things to do, it's hard for her to be able to find the energy to get it done. Or on weekends she will stay in bed rather than get up to get things done. Patient has also noted some hives. Comes and goes for the past couple months. Usually on her hands. No other concerns today. Past medical history, appointments, medications, allergies reviewed. Previous Medical History PAST MEDICAL HISTORY Diagnosis Date Attention deficit hyperactivity disorder (ADHD), combined type 12/14/2014 Class 2 obesity due to excess calories without serious comorbidity with body mass index (BMI) of 37.0 to 37.9 in adult Elevated hemoglobin A1c 05/03/2022 PANCHO (generalized anxiety disorder) 05/02/2022 Hyperlipidemia, mixed 05/03/2022 Major depressive disorder with single episode 05/02/2022 Oppositional defiant disorder 11/07/2007 Paradoxical insomnia 09/30/2018 using meletonin. Seasonal allergies Previous Surgical History PAST SURGICAL HISTORY Procedure Laterality Date NONE Family History FAMILY HISTORY Problem Relation Age of Onset other (Other) Mother restless leg Lipids Father Diabetes Maternal Grandmother Hypertension Maternal Grandmother other (sleep apnea) Maternal Grandmother Hypertension Maternal Grandfather other (sleep apnea) Maternal Grandfather Colon Cancer Paternal Grandmother Lipids Paternal Grandfather Diabetes Paternal Grandfather Patient Allergies ALLERGIES No Known Allergies Current Medications Current Outpatient Medications on File Prior to Visit Medication Sig amoxicillin-clavulanic acid (AUGMENTIN) 875-125 mg per tablet Take 1 tablet by mouth. venlafaxine ER (EFFEXOR XR) 150 mg 24 hr capsule Take 1 capsule by mouth once daily. acetaminophen 325 mg cap Take by mouth. cetirizine (ZYRTEC) 10 mg tablet Take 1 tablet by mouth once daily. Ibuprofen 200 mg cap Take by mouth every 4 hours as needed. FOR PAIN. No current facility-administered medications on file prior to visit. Social History Social History Tobacco Use Smoking status: Never Smokeless tobacco: Never Vaping Use Vaping Use: Never used Substance Use Topics Alcohol use: No Drug use: No Review of Symptoms REVIEW OF SYSTEMS See hpi EXAM: BP 118/86 (BP Site: Left Arm, BP Position: Sitting, BP Cuff Size: Large Adult) Pulse 100 Temp 36.3 C (97.3 F) Resp 18 Wt 118.8 kg (262 lb) LMP 05/27/2022 (Approximate) General Appearance: Well appearing, alert, in no acute distress, well-hydrated, well nourished.. Health Maintenance List COVID-19 VACCINE(1) Never done GC (GONORRHEA) SCREENING (18-24) Never done HEPATITIS C SCREENING Never done HIV SCREENING Never done CHLAMYDIA SCREENING (18-24) Never done DTAP,TDAP,TD(7 - Td or Tdap) due on 10/03/2024 HEPATITIS B Completed MENINGOCOCCAL CONJUGATE Completed HPV VACCINE Addressed INFLUENZA Discontinued MENINGOCOCCAL B: Consider based on risk Discontinued Data reviewed ASSESSMENT/PLAN: 1. Major depressive disorder with single episode, remission status unspecified - ICD9: 296.20, ICD10: F32.9 (primary diagnosis) Improving. Will trial addition of wellbutrin. Recheck in 1 month 2. Urticaria - ICD9: 708.9, ICD10: L50.9 - discussed options. Can continue daily zyrtec. Prn benadryl and can even try adding pepcid prn. Consider allergy consult in future Lara Jimenez PA-C documented in this encounterUniversity Hospitals [facility]03-17-2023 Miscellaneous Notes* Telephone Encounter - Mercedes Boothe MA - 05/03/2022 1:15 PM EDT Patient notified and voiced understanding. Mercedes Boothe MA * Telephone Encounter - Bryant Grimm MD - 05/03/2022 12:35 PM EDT Let patient know thyroid labs, electrolytes and kidney functions were ok. Lipid panel shows Trigs elevated at 272 (goal<150), HDL low at 28 (goal>50) and LDL slightly elevated at 136> advise working on diet with reduced fat and cholesterol as well as increased exercise for weight loss. Her CBC was ok except her platelets are elevated. Want to repeat in a month. Order placed. Her A1c is high at 6.4% indicating a strong risk for becoming diabetic which is when the A1c is 6.5% and higher. To try to prevent this she should reduced the amount of carbs, sugars, sweets and starches in her diet. Her calcium and liver functions are slightly elevated and will repeat these in a month. Orders placed. documented in this encounterUniversity Hospitals [facility]03-16-2023 History of Present illness Narrative* Bryant Grimm MD - 05/02/2022 9:56 AM EDT Chief Complaint Patient presents with: Recheck HPI Shaheed Bobo is a 21 year old female who presents here today for follow up on medication. Patient is wanting to discuss increasing her effexor. Patient was diagnosed with post depression and continues to have issues with depression a year after the delivery. She is currently on Effexor 75 mg once a day. This was initiated on 09/13/2021 when she was changed form lexapro which did not seem to help. The Effexor has been more beneficial then the lexapro but not as well as it had been. Patient now works at [employer] and will be starting counseling soon. Not a single parent, says marriage doing ok but could be better. Has only the one child. Past medical history, appointments, medications, allergies reviewed. Previous Medical History PAST MEDICAL HISTORY Diagnosis Date Attention deficit hyperactivity disorder (ADHD), combined type 12/14/2014 Class 2 obesity due to excess calories without serious comorbidity with body mass index (BMI) of 37.0 to 37.9 in adult Oppositional defiant disorder 11/07/2007 Paradoxical insomnia 09/30/2018 using meletonin. Seasonal allergies Previous Surgical History PAST SURGICAL HISTORY Procedure Laterality Date NONE Family History FAMILY HISTORY Problem Relation Age of Onset other (Other) Mother restless leg Lipids Father Diabetes Maternal Grandmother Hypertension Maternal Grandmother other (sleep apnea) Maternal Grandmother Hypertension Maternal Grandfather other (sleep apnea) Maternal Grandfather Colon Cancer Paternal Grandmother Lipids Paternal Grandfather Diabetes Paternal Grandfather Patient Allergies ALLERGIES No Known Allergies Current Medications Current Outpatient Medications on File Prior to Visit Medication Sig venlafaxine ER (EFFEXOR XR) 75 mg 24 hr capsule TAKE 1 CAPSULE BY MOUTH ONCE DAILY acetaminophen 325 mg cap Take by mouth. cetirizine (ZYRTEC) 10 mg tablet Take 1 tablet by mouth once daily. Ibuprofen 200 mg cap Take by mouth every 4 hours as needed. FOR PAIN. Norethindrone, Contraceptive, 0.35 mg tablet Take 1 tablet by mouth once daily. (Patient not taking: Reported on 05/02/2022) No current facility-administered medications on file prior to visit. Social History Social History Tobacco Use Smoking status: Never Smokeless tobacco: Never Vaping Use Vaping Use: Never used Substance Use Topics Alcohol use: No Drug use: No Review of Symptoms REVIEW OF SYSTEMS See HPI EXAM: BP (P) 140/96 (BP Site: Right Arm, BP Position: Sitting, BP Cuff Size: Large Adult) Pulse (P) 76 Resp (P) 16 Wt (P) 120.2 kg (265 lb) LMP 04/27/2022 (Approximate) BP 126/84 Pulse (P) 76 Resp (P) 16 Wt (P) 120.2 kg (265 lb) LMP 04/27/2022 (Approximate) Last 5 Encounter Wt Readings: Date: Wt: 11/01/2021 118.6 kg (261 lb 6.4 oz) (>99 %, Z= 2.58)* 09/13/2021 113.9 kg (251 lb) (>99 %, Z= 2.49)* 07/04/2021 107.5 kg (237 lb) (>99 %, Z= 2.37)* 02/20/2021 108 kg (238 lb) (>99 %, Z= 2.37)* 02/05/2021 107.5 kg (237 lb) (>99 %, Z= 2.36)* General Appearance: Well appearing, alert, in no acute distress, well-hydrated, well nourished. Obese.. Neck: Supple, no adenopathy; thyroid symmetric, normal size, no bruits. Lungs: Lungs clear to auscultation. No wheezing, rhonchi, rales.. Heart: RRR without murmur, gallop, or rubs. No ectopy. Abdomen: Normal abdominal exam, Abdomen soft, non-tender. Bowel sounds normal. No masses, organomegaly. Health Maintenance List COVID-19 VACCINE(1) Never done GC (GONORRHEA) SCREENING (18-24) Never done HEPATITIS C SCREENING Never done HIV SCREENING Never done CHLAMYDIA SCREENING (18-24) Never done DEPRESSION ASSESSMENT Never done DTAP,TDAP,TD(7 - Td or Tdap) due on 10/03/2024 HEPATITIS B Completed MENINGOCOCCAL CONJUGATE Completed HPV VACCINE Addressed INFLUENZA Discontinued MENINGOCOCCAL B: Consider based on risk Discontinued Data reviewed A/P ASSESSMENT/PLAN: 1. Major depressive disorder with single episode, remission status unspecified - ICD9: 296.20, ICD10: F32.9 (primary diagnosis) - will increase the Effexor to 150 mg once a day - patient encouraged to proceed with the counseling. 2. PANCHO (generalized anxiety disorder) - ICD9: 300.02, ICD10: F41.1 - as above Check - COMP METABOLIC PANEL - TSH BLD - CBC + DIFF - T4 FREE/FREE THYROX 3. Class 2 obesity due to excess calories without serious comorbidity with body mass index (BMI) of37.0 to 37.9 in adult - ICD9: 278.00, V85.37, ICD10: E66.09, Z68.37 Weight increasing - Behavioral intervention 4. Weight gain - ICD9: 783.1, ICD10: R63.5 Check - COMP METABOLIC PANEL - TSH BLD - T4 FREE/FREE THYROX 5. Pseudotumor - ICD9: [id number], ICD10: G93.2 - was released by neuro. Rarely gets a headache. 6. Encounter for screening for diabetes mellitus - ICD9: V77.1, ICD10: Z13.1 Check - COMP METABOLIC PANEL - HGB A1C 7. Encounter for lipid screening for cardiovascular disease - ICD9: V77.91, V81.2, ICD10: Z13.220, Z13.6 Check LIPID 8. Fatigue, unspecified type - ICD9: 780.79, ICD10: R53.83 Check - TSH BLD - CBC + DIFF - T4 FREE/FREE THYROX 9. Medication management - ICD9: V58.69, ICD10: Z79.899 Check - CBC + DIFF Bryant Grimm MD documented in this encounterUniversity Hospitals [facility]09-15-2022 History of Present illness Narrative* Silvio Jade APRN.[facility] - 11/01/2021 5:34 PM EDT Images from the original note were not included. Subjective HPI HPI Shaheed Bobo is a 21 year old female who presents today for CC of intermittent right lowercalf pain, started while sleeping, has happened multiple times in past. Has tried otc medication for relief. Symptoms are worsened by walking. Hx of fracture to right tib fib. Denies possibility of being . Denies numbness/tingling of right lower extremity. .Patient presents with: Trauma: Sharp pain in lower right calf x 1 day PAST MEDICAL HISTORY Diagnosis Date Attention deficit hyperactivity disorder (ADHD), combined type 12/14/2014 Class 2 obesity due to excess calories without serious comorbidity with body mass index (BMI) of 37.0 to 37.9 in adult Oppositional defiant disorder 11/07/2007 Paradoxical insomnia 09/30/2018 using meletonin. Seasonal allergies PAST SURGICAL HISTORY Procedure Laterality Date NONE ALLERGIES Patient has no known allergies. MEDICATIONS venlafaxine ER (EFFEXOR XR) 75 mg 24 hr capsule TAKE 1 CAPSULE BY MOUTH ONCE DAILY Norethindrone, Contraceptive, 0.35 mg tablet Take 1 tablet by mouth once daily. acetaminophen 325 mg cap Take by mouth. cetirizine (ZYRTEC) 10 mg tablet Take 1 tablet by mouth once daily. Ibuprofen 200 mg cap Take by mouth every 4 hours as needed. FOR PAIN. FAMILY HISTORY Problem Relation Age of Onset other (Other) Mother restless leg Lipids Father Diabetes Maternal Grandmother Hypertension Maternal Grandmother other (sleep apnea) Maternal Grandmother Hypertension Maternal Grandfather other (sleep apnea) Maternal Grandfather Colon Cancer Paternal Grandmother Lipids Paternal Grandfather Diabetes Paternal Grandfather Social History Tobacco Use Smoking status: Never Smokeless tobacco: Never Vaping Use Vaping Use: Never used Substance Use Topics Alcohol use: No Drug use: No ROS Objective Physical Exam Constitutional: General: She is not in acute distress. Appearance: She is not toxic-appearing or diaphoretic. HENT: Head: Normocephalic and atraumatic. Cardiovascular: Pulses: Dorsalis pedis pulses are 2+ on the right side. Posterior tibial pulses are 2+ on the right side. Pulmonary: Effort: Pulmonary effort is normal. No accessory muscle usage or respiratory distress. Musculoskeletal: Right lower leg: Tenderness present. No swelling, deformity, lacerations or bony tenderness. Legs: Neurological: Mental Status: She is alert and oriented to person, place, and time. ASSESSMENT/PLAN: 1. Pain of right lower extremity - ICD9: 729.5, ICD10: M79.604 This has been intermittent Xray negative Discussed otc management F/u with pcp if s/s persist Urgent f/u for worsening s/s. - XR TIBIA FIBULA 2V AP/LAT RIGHT IMPRESSION IMPRESSION: No acute fracture or dislocation of the right lower leg. Dictated by : NEGAR ALVAREZ MD Agrees to plan Silvio Jade APRN.[facility] documented in this encounterUniversity Hospitals [facility]08-19-2022 Miscellaneous Notes* Telephone Encounter - Mercedes Boothe MA - 10/05/2021 1:38 PM EDT Patient has been identified by name and date of : Yes Requested Prescriptions Pending Prescriptions Disp Refills venlafaxine ER (EFFEXOR XR) 75 mg 24 hr capsule [Pharmacy Med Name: VENLAFAXINE HCL ER 75 MG CAP] 90 capsule 2 Sig: TAKE 1 CAPSULE BY MOUTH ONCE DAILY RX INSTRUCTIONS: Patient aware RX will be sent to pharmacy. No need to notify patient. Mercedes Boothe MA Raji: 08/2021 Nov: 09/2021 Pharmacy requesting 90 day documented in this encounterUniversity Hospitals [facility]07-28-2022 History of Present illness Narrative* Lara Jimenez PA-C - 09/13/2021 9:51 AM EDT Chief Complaint No chief complaint on file. HPI Shaheed Bobo is a 21 year old female who presents here today for recheck. Patient was seen approx 2 months ago. We started lexapro for patient's depression symptoms. She does note benefit from it however feels like it has increased her appetite. Last 3 Encounter Wt Readings: Date: Wt: 09/13/2021 113.9 kg (251 lb) (>99 %, Z= 2.49)* 07/04/2021 107.5 kg (237 lb) (>99 %, Z= 2.37)* 02/20/2021 108 kg (238 lb) (>99 %, Z= 2.37)* Past medical history, appointments, medications, allergies reviewed. Previous Medical History PAST MEDICAL HISTORY Diagnosis Date Attention deficit hyperactivity disorder (ADHD), combined type 12/14/2014 Class 2 obesity due to excess calories without serious comorbidity with body mass index (BMI) of 37.0 to 37.9 in adult Oppositional defiant disorder 11/07/2007 Paradoxical insomnia 09/30/2018 using meletonin. Seasonal allergies Previous Surgical History PAST SURGICAL HISTORY Procedure Laterality Date NONE Family History FAMILY HISTORY Problem Relation Age of Onset other (Other) Mother restless leg Lipids Father Diabetes Maternal Grandmother Hypertension Maternal Grandmother other (sleep apnea) Maternal Grandmother Hypertension Maternal Grandfather other (sleep apnea) Maternal Grandfather Colon Cancer Paternal Grandmother Lipids Paternal Grandfather Diabetes Paternal Grandfather Patient Allergies ALLERGIES No Known Allergies Current Medications Current Outpatient Medications on File Prior to Visit Medication Sig escitalopram oxalate (LEXAPRO) 10 mg tablet TAKE 1 TABLET BY MOUTH EVERY DAY Norethindrone, Contraceptive, 0.35 mg tablet Take 1 tablet by mouth once daily. acetaminophen (TYLENOL) 325 mg cap Take by mouth. cetirizine (ZYRTEC) 10 mg tablet Take 1 tablet by mouth once daily. Ibuprofen 200 mg cap Take by mouth every 4 hours as needed. FOR PAIN. acetaZOLAMIDE SR (DIAMOX SEQUELS) 500 mg capsule Take 500 mg by mouth. vit/iron fum/folic ac ( 1 + 1 ORAL) Take by mouth. No current facility-administered medications on file prior to visit. Social History Social History Tobacco Use Smoking status: Never Smoker Smokeless tobacco: Never Used Vaping Use Vaping Use: Never used Substance Use Topics Alcohol use: No Drug use: No Review of Symptoms REVIEW OF SYSTEMS see hpi EXAM: BP 126/98 (BP Site: Left Arm, BP Position: Sitting, BP Cuff Size: Large Adult) Pulse 88 Resp 18 Wt 113.9 kg (251 lb) LMP 09/10/2021 (Approximate) BP 126/72 Pulse 88 Resp 18 Wt 113.9 kg (251 lb) LMP 09/10/2021 (Approximate) General Appearance: Well appearing, alert, in no acute distress, well-hydrated, well nourished.. Health Maintenance List HEPATITIS C SCREENING Never done HIV SCREENING Never done GC (GONORRHEA) SCREENING (18-24) due on 09/22/2021 COVID-19 VACCINE(1) due on 09/22/2021 CHLAMYDIA SCREENING (18-24) due on 09/22/2021 DEPRESSION SCREENING due on 09/06/2022 DTAP,TDAP,TD(7 - Td or Tdap) due on 10/03/2024 MENINGOCOCCAL CONJUGATE Completed HPV VACCINE Addressed INFLUENZA Discontinued MENINGOCOCCAL B: Consider based on risk Discontinued Data reviewed ASSESSMENT/PLAN: 1. depression - ICD9: 648.44, 311, ICD10: F53.0 (primary diagnosis) Will switch to effexor 75mg. Recheck in 1 month - TSH BLD 2. PANCHO (generalized anxiety disorder) - ICD9: 300.02, ICD10: F41.1 As above - TSH BLD 3. Weight gain - ICD9: 783.1, ICD10: R63.5 - TSH BLD - CBC + DIFF 4. Screening for diabetes mellitus - ICD9: V77.1, ICD10: Z13.1 - COMP METABOLIC PANEL - CBC + DIFF - HGB A1C 5. Encounter for lipid screening for cardiovascular disease - ICD9: V77.91, V81.2, ICD10: Z13.220, Z13.6 - LIPID PANEL, NONFASTING Lara Jimenez PA-C documented in this encounterUniversity Hospitals [facility] Center07-08-2022 Miscellaneous Notes* Telephone Encounter - Bryant Grimm MD - 08/24/2021 1:08 PM EDT The following approved medication requests have been transmitted electronically. Signed Prescriptions Disp Refills escitalopram oxalate (LEXAPRO) 10 mg tablet 90 tablet 0 Sig: TAKE 1 TABLET BY MOUTH EVERY DAY NICKI: No Authorizing Provider: BRYANT GRIMM MD * Telephone Encounter - Mercedes Boothe MA - 08/24/2021 12:48 PM EDT Patient has been identified by name and date of : Yes Pending Prescriptions Disp Refills ESCITALOPRAM 10 MG TABLET 90 tablet 1 Sig: TAKE 1 TABLET BY MOUTH EVERY DAY NICKI: Yes RX INSTRUCTIONS: Patient aware RX will be sent to pharmacy. No need to notify patient. Mercedes Boothe MA Raji: 06/2021 Nov: 08/2021 Last refill: 06/2021 documented in this encounterUniversity Hospitals Beach[facility] Center05-18-2022 History of Present illness Narrative* Lara Jimenez PA-C - 07/04/2021 11:59 AM EDT Chief Complaint Patient presents with: Depression: and axniety HPI Shaheed Bobo is a 20 year old female who presents here today for Above Complaints.. Patient had a baby girl on May 02. Since then she had increasing anxiety and new depression. She is having irritability and mood swings. Very anxiety. Decreased appetite. Some feelings of guilt. Trouble sleeping. Past medical history, appointments, medications, allergies reviewed. Previous Medical History PAST MEDICAL HISTORY Diagnosis Date Attention deficit hyperactivity disorder (ADHD), combined type 12/14/2014 Class 2 obesity due to excess calories without serious comorbidity with body mass index (BMI) of 37.0 to 37.9 in adult Oppositional defiant disorder 11/07/2007 Paradoxical insomnia 09/30/2018 using meletonin. Seasonal allergies Previous Surgical History PAST SURGICAL HISTORY Procedure Laterality Date NONE Family History FAMILY HISTORY Problem Relation Age of Onset other (Other) Mother restless leg Lipids Father Diabetes Maternal Grandmother Hypertension Maternal Grandmother other (sleep apnea) Maternal Grandmother Hypertension Maternal Grandfather other (sleep apnea) Maternal Grandfather Colon Cancer Paternal Grandmother Lipids Paternal Grandfather Diabetes Paternal Grandfather Patient Allergies ALLERGIES No Known Allergies Current Medications Current Outpatient Medications on File Prior to Visit Medication Sig Norethindrone, Contraceptive, 0.35 mg tablet Take 1 tablet by mouth once daily. acetaminophen (TYLENOL) 325 mg cap Take by mouth. acetaZOLAMIDE SR (DIAMOX SEQUELS) 500 mg capsule Take 500 mg by mouth. vit/iron fum/folic ac ( 1 + 1 ORAL) Take by mouth. cetirizine (ZYRTEC) 10 mg tablet Take 1 tablet by mouth once daily. Ibuprofen 200 mg cap Take by mouth every 4 hours as needed. FOR PAIN. pyridoxine, vitamin B6, (VITAMIN B-6) 100 mg tablet Take 100 mg by mouth once daily. No current facility-administered medications on file prior to visit. Social History Social History Tobacco Use Smoking status: Never Smoker Smokeless tobacco: Never Used Vaping Use Vaping Use: Never used Substance Use Topics Alcohol use: No Drug use: No Review of Symptoms REVIEW OF SYSTEMS see hpi EXAM: BP 120/76 (BP Site: Left Arm, BP Position: Sitting, BP Cuff Size: Large Adult) Pulse 72 Temp 37.1 C (98.7 F) Resp 18 Wt 107.5 kg (237 lb) LMP 06/08/2021 General Appearance: Well appearing, alert, in no acute distress, well-hydrated, well nourished.. PSYCH: Appearance: well dressed well groomed, cooperative and pleasant Behavior: good eye contact Speech: normal and fluent and coherent Mood: depressed Affect: appropriate Perceptions: none Thought process: goal directed Thought Content: normal Intelligence level: normal Insight: good Judgment: good . Health Maintenance List HEPATITIS C SCREENING Never done HIV SCREENING Never done GC (GONORRHEA) SCREENING (18-24) due on 09/22/2021 COVID-19 VACCINE(1) due on 09/22/2021 CHLAMYDIA SCREENING (18-24) due on 09/22/2021 DEPRESSION SCREENING due on 09/22/2021 DTAP,TDAP,TD(7 - Td or Tdap) due on 10/03/2024 MENINGOCOCCAL CONJUGATE Completed HPV VACCINE Addressed INFLUENZA Discontinued MENINGOCOCCAL B: Consider based on risk Discontinued Data reviewed ASSESSMENT/PLAN: 1. depression - ICD9: 648.44, 311, ICD10: F53.0 (primary diagnosis) Start lexapro F/u 1 month 2. PANCHO (generalized anxiety disorder) - ICD9: 300.02, ICD10: F41.1 As above 3. Pseudotumor - ICD9: [id number], ICD10: G93.2 Follow with neuro. Lara Jimenez PA-C documented in this encounterUniversity Hospitals Beachwood [facility] Center05-10-2022 Miscellaneous Notes* Telephone Encounter - Parisa Jasso LPN - 06/26/2021 2:10 PM EDT Left message on pt's cell that Lara will see her in the office and she does not need to cancel her appointment. Parisa Jasso LPN * Telephone Encounter - Lara Jimenez PA-C - 06/26/2021 1:42 PM EDT Yes. Absolutely. Lara Jimenez PA-C * Telephone Encounter - Parisa Jasso LPN - 06/26/2021 12:45 PM EDT Left message for pt to contact office. Pt is scheduled for appointment. Please cancel appointment after speaking with pt unless she is needing to be seen for something else like postpartumdepression/anxiety. Lara, did speak with pt's mother who states appointment is more for depression/anxiety. Pt did see ob for this and pt sees psycho therapist at [facility] . Both providers recommended she f/u with her primary care provider. Are you ok with keeping appointment? Parisa Jasso LPN * Telephone Encounter - Lara Jimenez PA-C - 06/26/2021 12:22 PM EDT Patient is on my schedule next week for a post visit. I don't do these. She needs to be scheduled with cell operator. Lara Jimenez PA-C documented in this encounterUniversity Hospitals Beachwood [facility] Center03-23-2022 NoteGyn Discharge Summary Patient Name: Shaheed Bobo Patient : 2000 Primary Care Physician: Bryant Grimm MD Admit Date: 05/07/2021 Attending Provider: Alicia Bland MD Principal Diagnosis: Endometritis, Idiopathic intracranial hypertension, chronic anemia, obesity Other Diagnosis: Septicemia (HCC) [A41.9] Pyrexia of unknown origin following delivery [O86.4] Postoperative fever [R50.82] Patient Active Problem List Diagnosis ? Blurry vision ? Influenza vaccination declined by patient ? Papilledema Surgical Operations & Procedures: NA Consultations: Neurology, Nephrology Pertinent Findings & Procedures: Shaheed Bobo is a 20 y.o. female , admitted for suspected endometritis. Patient presented POD#5 s/p PCD with fevers, chills, and fatigue. Patient found to be febrile and tachycardia on initial presentation. She was given IVF, broad spectrum antibiotics (vancomycin/zosyn), CTA chest, A/P negative for PE or abdominal process, TVUS negative for retained products of conception, vaginal and urine cultures negative. She was transitioned do clindamycin and gentamicin for endometritis and admitted for monitoring. Neurology consulted due to IIH with difficulty being seen outpatient. Recommended to continue Diamox for symptom relief and Nephrology consulted due to low bicarbonate. Bicarbonate level stable per Nephrology and can continue Diamox if necessary per Neurology. Leukocytosis resolved, as well as tachycardia. Patient remained febrile for >24 hrs and antibiotics discontinued. Remaining hospital course normal, discharged home 05/09/21. Follow up in 1-2 weeks. Discharge instructions reviewed and questions answered. Course of patient: normal Discharge to: Home Recommendations on Discharge: Medications: Medication List CONTINUE taking these medications acetaZOLAMIDE 500 MG extended release capsule Commonly known as: DIAMOX Take 1 capsule by mouth every 12 hours Notes to patient: Intracranial Hypertension docusate sodium 100 MG capsule Commonly known as: COLACE Take 1 capsule by mouth 2 times daily as needed for Constipation Notes to patient: Constipation ferrous sulfate 325 (65 Fe) MG tablet Commonly known as: IRON 325 Take 1 tablet by mouth 2 times daily (with meals) Notes to patient: Iron Supplement ibuprofen 600 MG tablet Commonly known as: ADVIL;MOTRIN Take 1 tablet by mouth every 6 hours Notes to patient: Pain vitamin 27-1 MG Tabs tablet Take 1 tablet by mouth daily Notes to patient: Vitamin Where to Get Your Medications These medications were sent to [facility]/pharmacy #[id number] - [place], [place] - [address] - P [phone] - F [phone], [facility] [id number] ? acetaZOLAMIDE 500 MG extended release capsule Activity: activity as tolerated, no driving while on analgesics and no heavy lifting for 4-6 weeks Diet: regular diet Follow up: 1-2 weeks with Counts include [facility] beds at the [facility] Condition on discharge: good and stable Discharge Date: 05/09/21 Comments: Home care, Follow-up care, restrictions reviewed. Alicia Bland MD 05/09/2021, 10:37 [facility]03-23-2022 Hospital course Narrative* Alicia Bland MD - 05/09/2021 10:37 AM EDT Images from the original note were not included. Pediatric Neuropsychologist Discharge Summary Patient Name: Shaheed Bobo Patient : 2000 Primary Care Physician: Bryant Grimm MD Admit Date: 05/07/2021 Attending Provider: Alicia Bland MD Principal Diagnosis: Endometritis, Idiopathic intracranial hypertension, chronic anemia,obesity Other Diagnosis: Septicemia (HCC) [A41.9] Pyrexia of unknown origin following delivery [O86.4] Postoperative fever [R50.82] Patient Active Problem List Diagnosis Blurry vision Influenza vaccination declined by patient Papilledema Surgical Operations & Procedures: NA Consultations: Neurology, Nephrology Pertinent Findings & Procedures: Shaheed Bobo is a 20 y.o. female , admitted for suspected endometritis. Patient presented POD#5 s/p PCD with fevers, chills, and fatigue. Patient found to be febrile and tachycardia on initial presentation. She was given IVF, broad spectrum antibiotics (vancomycin/zosyn), CTA chest, A/P negative for PE or abdominal process, TVUS negative for retained products of conception, vaginal and urine cultures negative. She was transitioned do clindamycin and gentamicin for endometritis and admitted for monitoring. Neurology consulted due to IIH with difficulty being seen outpatient. Recommended to continue Diamox for symptom relief and Nephrology consulted due to low bicarbonate. Bicarbonate level stable per Nephrology and can continue Diamox if necessary per Neurology. Leukocytosis resolved, as well as tachycardia. Patient remained febrile for >24 hrs and antibiotics discontinued. Remaining hospital course normal, discharged home 05/09/21. Follow up in 1-2 weeks. Discharge instructions reviewed and questions answered. Course of patient: normal Discharge to: Home Recommendations on Discharge: Medications: Medication List CONTINUE taking these medications acetaZOLAMIDE 500 MG extended release capsule Commonly known as: DIAMOX Take 1 capsule by mouth every 12 hours Notes to patient: Intracranial Hypertension docusate sodium 100 MG capsule Commonly known as: COLACE Take 1 capsule by mouth 2 times daily as needed for Constipation Notes to patient: Constipation ferrous sulfate 325 (65 Fe) MG tablet Commonly known as: IRON 325 Take 1 tablet by mouth 2 times daily (with meals) Notes to patient: Iron Supplement ibuprofen 600 MG tablet Commonly known as: ADVIL;MOTRIN Take 1 tablet by mouth every 6 hours Notes to patient: Pain vitamin 27-1 MG Tabs tablet Take 1 tablet by mouth daily Notes to patient: Vitamin Where to Get Your Medications These medications were sent to [facility]/pharmacy #[id number] - [place], [place] - [address] - P [phone] - F [phone] [id number], [place] [address] acetaZOLAMIDE 500 MG extended release capsule Activity: activity as tolerated, no driving while on analgesics and no heavy lifting for 4-6 weeks Diet: regular diet Follow up: 1-2 weeks with Counts include 234 beds at the [facility] Condition on discharge: good and stable Discharge Date: 05/09/21 Comments: Home care, Follow-up care, restrictions reviewed. Alicia Bland MD 05/09/2021, 10:37 AM documented in this [facility] Work Phone: [phone] History of Present illness Narrative* Crystal Najera DTR - 05/09/2021 9:50 AM EDT Nutrition rescreen completed. Chart reviewed. Patient to be monitored and followed by the diet geothermal hvac technician. * Dayana Trivedi DO - 05/09/2021 5:08 AM EDT Images from the original note were not included. MGMT ANALYST Progress Note Date: 05/09/2021 Time: 5:08 AM Shaheed Bobo 20 y.o. female , POD #7 s/p PCD admitted for fever and tachycardia Patient seen and examined. She has no acute complaints this AM. Pain is controlled. Patient is tolerating oral intake. She is urinating. She has light lochia. She is ambulating without difficulty. She is passing flatus. She denies Fever/Chills, Chest Pain, SOB, N/V. Vitals: Vitals: 05/08/21 0953 05/08/21 1452 05/08/21 1715 05/08/21 2223 BP: 128/76 117/78 124/74 130/82 Pulse: 95 95 94 83 Resp: 16 16 16 16 Temp: 99 F (37.2 C) 98.1 F (36.7 C) 98 F (36.7 C) 97.5 F (36.4 C) TempSrc: Temporal Temporal Temporal Temporal SpO2: 98% 99% 99% 98% Weight: Height: Physical Exam: Gen: NAD, alert and cooperative HEENT: Normocephalic, atraumatic Resp: CTABL, no WRR Card: RRR, no murmur Abd: soft, NT/ND, no rebound, no guarding. Present BS Incisions: C/D/I Medications: Current Facility-Administered Medications Medication Dose Route Frequency Provider Last Rate Last Admin amoxicillin-clavulanate (AUGMENTIN) 875-125 MG per tablet 1 tablet 1 tablet Oral 2 times per day Aniceto Ca, DO 1 tablet at 05/08/212105 sodium chloride flush 0.9 % injection 5-40 mL 5-40 mL IntraVENous 2 times per day Aniceto Ca,DO 10 mL at 05/08/21 09 sodium chloride flush 0.9 % injection 5-40 mL 5-40 mL IntraVENous PRN Aniceto Ca, DO 0.9 % sodium chloride infusion 25 mL IntraVENous PRN Aniceto Ca DO acetaZOLAMIDE (DIAMOX) extended release capsule 500 mg 500 mg Oral 2 times per day Aniceto Ca, DO 500 mg at 05/08/212105 sodium chloride flush 0.9 % injection 10 mL 10 mL IntraVENous 2 times per day Aniceto Ca DO 10 mL at 05/08/212105 sodium chloride flush 0.9 % injection 10 mL 10 mL IntraVENous PRN Aniceto Ca, DO 0.9 % sodium chloride infusion 25 mL IntraVENous PRN Aniceto Alirezabrody, DO ondansetron (ZOFRAN) injection 4 mg 4 mg IntraVENous Q6H PRN Aniceto Ca, DO simethicone (MYLICON) chewable tablet 80 mg 80 mg Oral Q6H PRN Aniceto Ca, DO docusate sodium (COLACE) capsule 100 mg 100 mg Oral BID PRN Aniceto Ca, DO lansinoh lanolin ointment Topical Q1H PRN Aniceto Ca, DO ferrous sulfate (IRON 325) tablet 325 mg 325 mg Oral BID WC Aniceto Garcíamaribeth DO 325 mg at vitamin 27-1 MG tablet 1 tablet 1 tablet Oral Daily Aniceto Ca, DO 1 tablet at 05/08/21 0944 enoxaparin (LOVENOX) injection 40 mg 40 mg SubCUTAneous Daily Aniceto Radhakeiko DO ibuprofen (ADVIL;MOTRIN) tablet 600 mg 600 mg Oral Q6H PRN Aniceto Ca, DO 600 mg at 05/08/212104 Diagnostics: CTA CHEST W WO CONTRAST Result Date: 05/07/2021 Patient Name: SHAHEED BOBO Computed Tomography ACCESSION EXAMDATE/TIME PROCEDURE ORDERING PROVIDER [id number] 05/07/2021 08:12 EDT CTA Chest w/ + w/o [id number] VARGHESE ANICETO CPT code 39382 Q9967 Reason For Exam (CTA Chest w/ + w/o Contrast) , tachycardia, fever, r/o PE Report CTA of the chest, 05/07/2021. Reason for examination: Shortness of breath and tachycardia. COMPARISON: None available. TECHNIQUE: 1 mm axial images were obtainedthrough the chest following intravenous administration of 75 mL of Isovue 370. Coronal and sagittal reconstructions were created and reviewed. 3-dimensional postprocessing was performed by myself on an independent workstation at the time of interpretation with saved volume rendered images. FINDINGS: Pulmonary vasculature: Contrast bolus is significantly suboptimal. Evaluation is also significantly limited by motion artifact. No definite pulmonary thromboembolic disease is detected. Lungs/pleura: Evaluation of the lung parenchyma is also limited by motion. The lungs are largely clear with mildatelectasis in the dependent portions of the lungs and in the lower lung jones. There is no pleural effusion. Mediastinum: Cardiac size is difficult normal to mildly enlarged. The thoracic aorta is n ormal in caliber. There are visible but technically nonenlarged mediastinal and hilar lymph nodes. Chest wall/soft tissues: There are borderline enlarged axillary lymph nodes bilaterally which may also be reactive in nature. No supraclavicular lymphadenopathy is noted. Upper abdomen: The abdomen was evaluated on a dedicated CT obtained earlier on 05/07/2021 IMPRESSION: Significantly limited examination. No definite pulmonary thromboembolic disease. Other findings as described. Computed Tomography Report Report Dictated on --- Final --- Dictated: 05/07/2021 8:27 am Dictating Physician: MD ROBLEDO JOE M Signed Date and Time: 05/07/2021 8:32 am Signed by: MD ROBLEDO JOE M Transcribed Date and Time: 05/07/2021 8:27 CT Abdomen Pelvis W Contrast Result Date: 05/07/2021 Patient Name: SHAHEED BOBO Computed Tomography ACCESSION EXAMDATE/TIME PROCEDURE ORDERING PROVIDER [id number] 05/07/2021 05:[address] Abdomen/Pelvis w/ IV [id number] -[facility] Contrast (IV Onl CPT code 81524 Q9967 Reason For Exam (CT Abdomen/Pelvis w/ IVContrast (IV Onl) abdominal pain, s/p c section Report HISTORY: Recent with fever chills vaginal bleeding After intravenous contrast sections performed through the abdomen and pelvis. Included sections through the lung bases show no definite abnormality. Liver spleen are normal size with no definite abnormalities. Pancreas adrenal regions and kidneys are negative. No free air or free fluid is seen. IMPRESSION: 1. Enlarged uterus with prior C- section with blood density in the myometrium seen on sagittal view in the fundus. 2. Trace air is seen in the urinary bladder probably due to previous instrumentation. Prior with tiny air bubbles anterior abdominal wall /medial aspect right rectus abdominis muscle and subcutaneous tissues. Report Dictated on --- Final --- Dictated: 05/07/2021 6:07 am Dictating Physician: MD CRAWFORD WILLIAM Signed Date and Time: 05/07/2021 6:12 am Signed by: MD CRAWFORD WILLIAM Transcribed Date and Time:05/07/2021 6:07 US NON OB TRANSVAGINAL Result Date: 05/07/2021 Patient Name: SHAHEED BOBO Ultrasound ACCESSION EXAM DATE/TIME PROCEDURE ORDERING PROVIDER [id number] 05/07/2021 04:23 EDT US Transvaginal [id number] -[facility] CPT code 38456 Reason For Exam (US Transvaginal) sepsis s/p concern for rpoc Report CLINICAL INFORMATION: Sepsis, status post section A sonogram of the pelvis is performed transvaginally. The uterus is anteverted and measures 16.8 x 16.4 x 9.4 cm. The echogenicity of the myometrium is heterogeneous. The endometrial stripe measures 10.9 mm and is slightly heterogeneous. The right ovary and left ovary are not visualized No free fluid or pelvic masses are noted. IMPRESSIONS: Enlarged heterogeneous uterus with mildly thickened endometrium-this may represent possible blood clots or retained products of conception, but neither entity is certain. Report Dictated on --- Final --- Dictated: 05/07/2021 4:52 am Dictating Physician: MD CRAWFORD WILLIAM Signed Date and Time: 05/07/2021 4:57 am Signed by: MD CRAWFORD WILLIAM Transcribed Date and Time: 05/07/2021 4:52 Labs: Admission on 05/07/2021 Component Date Value Ref Range Status Lactic Acid 05/07/2021 1.8 0.7 - 2.0 mmol/L Final Blood Culture, Routine 05/07/2021 No growth at 1 day. Preliminary Blood Culture, Routine 05/07/2021 No growth at 1 day. Preliminary WBC 05/07/2021 12.1* 3.6 - 10.7 10*3/uL Final RBC 05/07/2021 2.90* 3.80 - 5.20 10*6/uL Final Hemoglobin 05/07/2021 7.3* 11.7 - 16.0 g/dL Final Hematocrit 05/07/2021 23.7* 35.0 - 47.0 % Final MCV 05/07/2021 81.8 79.0 - 98.0 fL Final MCH 05/07/2021 25.2* 26.0 - 34.0 pg Final MCHC 05/07/2021 30.8* 32.0 - 36.0 % Final RDW 05/07/2021 16.6* 11.5 - 14.5 % Final Platelets 05/07/2021 442* 140 - 440 10*3/uL Final MPV 05/07/2021 6.4* 7.4 - 10.4 fL Final Granulocytes % 05/07/2021 82.1* 40.0 - 80.0 % Final Lymphocyte % 05/07/2021 9.6* 20.0 - 40.0 % Final Monocytes 05/07/2021 7.6 2.0 - 10.0 % Final Eosinophils 05/07/2021 0.5* 1.0 - 6.0 % Final Basophils 05/07/2021 0.2 0.0 - 2.0 % Final Absolute Neut # 05/07/2021 9.9* 1.8 - 7.0 10*3/uL Final Absolute Lymph # 05/07/2021 1.2 1.0 - 4.3 10*3/uL Final Absolute [place] # 05/07/2021 0.9* 0.0 - 0.8 10*3/uL Final Absolute Eos # 05/07/2021 0.1 0.0 - 0.5 10*3/uL Final Absolute Baso # 05/07/2021 0.0 0.0 - 0.2 10*3/uL Final Sodium 05/07/2021 135 135 - 145 mmol/L Final Potassium 05/07/2021 4.0 3.5 - 5.1 mmol/L Final Chloride 05/07/2021 108* 98 - 107 mmol/L Final CO2 05/07/2021 16* 22 - 30 mmol/L Final Anion Gap 05/07/2021 10 3 - 13 mmol/L Final Glucose 05/07/2021 125* 70 - 100 mg/dL Final BUN 05/07/2021 11 9 - 20 mg/dL Final CREATININE 05/07/2021 0.68 0.52 - 1.25 mg/dL Final eGFR 05/07/2021 >90.0 >60 mL/min Final EGFR IF NonAfrican Polish 05/07/2021 >90.0 >60 mL/min Final Comment: KDIGO guidelines provide the following GFR categories: Stage GFR(ml/min/1.73 m2) Terms G1 >=90 Normal or high G2 60-89 Mildly decreased* G3a 45-59 Mildly to moderately decreased G3b 30-44 Moderately to severely decreased G4 15-29 Severely decreased G5 <15 Kidney failure *Relative to young adult level. In the absence of evidence of kidney damage, neither GFR category G1 nor G2 fulfill the criteria for CKD. The CKD-EPI equation is validated in individuals 18 years of age and older. Currently the best equation for estimating glomerular filtration rate (GFR) from serum creatinine in children is the Bedside Tomlinson equation. It is less accurate in patients with extremes of muscle mass, restriction of dietary protein, ingestion of creatine, extra-renal metabolism of creatinine, or treatment with medications that affect renal tubular creatinine secretion. Calcium 05/07/2021 9.3 8.4 - 10.4 mg/dL Final Albumin,Serum 05/07/2021 3.5 3.5 - 5.0 g/dL Final Total Protein 05/07/2021 6.6 6.3 - 8.2 g/dL Final Total Bilirubin 05/07/2021 0.5 0.2 - 1.3 mg/dL Final Alkaline Phosphatase 05/07/2021 63 38 - 126 U/L Final ALT 05/07/2021 24 0 - 34 U/L Final Comment: The ALT test is performed by an updated assay method. Please note that the reference intervals have been changed and are now sex specific. AST 05/07/2021 26 15 - 46 U/L Final Glucose, Ur 05/07/2021 Normal Normal (<70) mg/dL Final . Total Protein, Urine 05/07/2021 Negative Negative mg/dL Final . Bilirubin Urine 05/07/2021 Negative Negative mg/dL Final . Urobilinogen, Urine 05/07/2021 Normal Normal (0-1) mg/dL Final . pH, Urine 05/07/2021 7.5 5.0 - 8.0 NA Final . Specific [place], Urine 05/07/2021 1.016 1.005 - 1.030 NA Final . Occult Blood,Urine 05/07/2021 0.2* Negative mg/dL Final . Ketones, Urine 05/07/2021 Negative Negative mg/dL Final . Nitrite, Urine 05/07/2021 Negative Negative NA Final . LEUKOCYTES, UA 05/07/2021 Negative Negative Tyrell/uL Final . Appearance 05/07/2021 Clear Clear NA Final . Color, Urine 05/07/2021 Light-Yellow Lt. Yellow NA Final . RBC, UA 05/07/2021 3-5* 0 - 2 /[HPF] Final . WBC, UA 05/07/2021 0-2 0 - 5 /[HPF] Final . Squam Epithel, UA 05/07/2021 3-5 3 - 5 /[HPF] Final . Bacteria, UA 05/07/2021 Negative Negative /[HPF] Final . Hyaline Casts, UA 05/07/2021 Negative Negative /[LPF] Final . Bilirubin, Direct 05/07/2021 0.0 0.0 - 0.3 mg/dL Final Troponin I 05/07/2021 <0.012 0.000 - 0.034 ng/mL Final . Respiratory Panel Molecular, with * 05/07/2021 Final Value:NEGATIVE: No targets were detected by the [employer] Upper Respiratory Pathogens PCR Panel. _ Expected Result: Not Detected The [employer] Upper Respiratory Pathogens PCR Panel can detect the following targets: SARS-CoV-2, Adenovirus, Coronavirus 229E, Coronavirus HKU1, Coronavirus NL63, Coronavirus OC43, Human Metapneumovirus, Human Rhinovirus/Enterovirus, Influenza A, Influenza B, Parainfluenza Virus 1, Parainfluenza Virus 2, Parainfluenza Virus 3, Parainfluenza Virus 4, Respiratory Syncytial Virus, Bordetella pertussis, Bordetella parapertussis, Chlamydia pneumoniae, Mycoplasma pneumoniae. Method: Real-time PCR. Urine Culture, Routine 05/07/2021 Normal urogenital violeta present. Final C. trachomatis DNA 05/07/2021 Final Value:NOT Detected Chlamydia trachomatis Nucleic Acid NOT Detected by DNA Amplification using the [employer] System. Culture is the only recommended test in medical-legal cases such as suspected child abuse or molestation. NEISSERIA GONORRHOEAE, DNA 05/07/2021 Final Value:NOT Detected Neisseria gonorrhoeae Nucleic Acid NOT Detected by DNA Amplification using the [employer] System. Culture is the only recommended test in medical-legal cases such as suspected child abuse or molestation. Fungus (Mycology) Culture 05/07/2021 Culture pending. Preliminary Add On 05/07/2021 Accepted NA Final Specimen available & acceptable for analysis. CULTURE ST. VAGINA 05/07/2021 Pinpoint growth, further incubation required. Preliminary Gram Stain Result 05/07/2021 Final Value:Gram stain contains mixed morphotypes consistent with transition from normal vaginal violeta. Trichomonas Vaginali, Molecular 05/07/2021 Final Value:NOT Detected Reference Interval: Not Detected Method: Real-time PCR. Negative results do not completely rule out infection with Trichomonas vaginalis. WBC 05/08/2021 8.8 3.6 - 10.7 10*3/uL Final RBC 05/08/2021 2.90* 3.80 - 5.20 10*6/uL Final Hemoglobin 05/08/2021 7.4* 11.7 - 16.0 g/dL Final Hematocrit 05/08/2021 23.8* 35.0 - 47.0 % Final MCV 05/08/2021 82.0 79.0 - 98.0 fL Final MCH 05/08/2021 25.5* 26.0 - 34.0 pg Final MCHC 05/08/2021 31.1* 32.0 - 36.0 % Final RDW 05/08/2021 16.9* 11.5 - 14.5 % Final Platelets 05/08/2021 417 140 - 440 10*3/uL Final MPV 05/08/2021 6.1* 7.4 - 10.4 fL Final Sodium 05/08/2021 135 135 - 145 mmol/L Final Potassium 05/08/2021 3.7 3.5 - 5.1 mmol/L Final Chloride 05/08/2021 110* 98 - 107 mmol/L Final CO2 05/08/2021 20* 22 - 30 mmol/L Final Anion Gap 05/08/2021 5 3 - 13 mmol/L Final Glucose 05/08/2021 100 70 - 100 mg/dL Final BUN 05/08/2021 10 9 - 20 mg/dL Final CREATININE 05/08/2021 0.59 0.52 - 1.25 mg/dL Final eGFR 05/08/2021 >90.0 >60 mL/min Final EGFR IF NonAfrican Polish 05/08/2021 >90.0 >60 mL/min Final Comment: KDIGO guidelines provide the following GFR categories: Stage GFR(ml/min/1.73 m2) Terms G1 >=90 Normal or high G2 60-89 Mildly decreased* G3a 45-59 Mildly to moderately decreased G3b 30-44 Moderately to severely decreased G4 15-29 Severely decreased G5 <15 Kidney failure *Relative to young adult level. In the absence of evidence of kidney damage, neither GFR category G1 nor G2 fulfill the criteria for CKD. The CKD-EPI equation is validated in individuals 18 years of age and older. Currently the best equation for estimating glomerular filtration rate (GFR) from serum creatinine in children is the Bedside Tomlinson equation. It is less accurate in patients with extremes of muscle mass, restriction of dietary protein, ingestion of creatine, extra-renal metabolism of creatinine, or treatment with medications that affect renal tubular creatinine secretion. Calcium 05/08/2021 9.2 8.4 - 10.4 mg/dL Final Assessment/Plan: Shaheed Bobo 20 y.o. female , POD #7 s/p PCD admitted for fever and tachycardia Postoperative fever of unknown origin, suspected PP endometritis -Afebrile and HR <100 -Transitioned to PO Augmentin yesterday -Urine culture negative, blood cultures NGTD, vaginal gram stain consistent with normal vaginal violeta, pinpoint growth on vaginal culture, vaginal fungal culture pending -Consults: Neuro, Nephro -DVT Proph:SCDs while in bed, Lovenox -Diet:General - ADAT -Encourage ambulation and use of incentive spirometer as tolerated -Continue Augmentin, plan to DC home today Anemia -Hgb stable at 7.4 -Asymptomatic -Continue PO iron and colace Idiopathic intracranial hypertension -Dx 01/01/21 -Asymptomatic -Neuro consulted, IIH well controlled and signed off due to no further workup needed -Continue Diamox BID even in the setting of low bicarb -Nephrology consulted for low bicarb, agrees to continue Diamox, benefits outweigh risks and slightly low bicarb is to be expected, they signed off DAYANA DO FAROOQ 05/09/2021, 5:08 AM Associated attestation - Alicia Bland MD - 05/09/2021 10:36 AM EDT Hospital Care (Independent): I independently saw and evaluated the patient. I agree with the findings and plan of care as documented in the resident's note. POD#7 from pCD admitted with fever of unknown origin, likely endometritis. Has been afebrile for >24 hours. Cultures all negative or pending. Will DC antibiotics, no need to continue treatment for endometritis. Will send her home today. Precautions given. I spent 15 minutes in the visit, with more than 50% of the total [id number] time of the visit in counseling/coordination of care. --- Total time spent discharging the patient was less than 30 minutes, of which greater than 50% ofthe time was spent counseling and coordinating care. * Aniceto Ca DO - 05/08/2021 3:32 PM EDT Pt doing well. No complaints. Tolerating PO. Denies n/v, CP, SOB, calf pain. Pain controlled. Vitals: 05/08/21 1452 BP: 117/78 Pulse: 95 Resp: 16 Temp: 98.1 F (36.7 C) SpO2: 99% Gen- AOx3, NAD Heart- RRR, S1S2 Lungs- CTAB Abd- soft, NT, mildly distended, no r/g Incision- C/D/I Ext- no edema or tenderness A/P: VSS and tachycardic resolved. Discontinued IV antibiotics and started PO Augmentin BID. Will monitor overnight and plan for discharge tomorrow if patient remains afebrile. * Aniceto Ca DO - 05/08/2021 5:09 AM EDT Images from the original note were not included. MGMT ANALYST Progress Note Date: 05/08/2021 Time: 6:24 AM Shaheed Bobo 20 y.o. female , POD #6 s/p PCD admitted for fever and tachycardia Patient seen and examined. She has no acute complaints this AM. Pain is controlled. Patient is tolerating oral intake. She is urinating. She reports any light lochia. She is ambulating without difficulty. She is passing flatus. She denies Fever/Chills, Chest Pain, SOB, N/V. Vitals: Vitals: 05/07/21 1449 05/07/21 1530 05/07/21 1620 05/08/21 0519 BP: 116/76 118/84 (!) 140/97 126/82 Pulse: (!) 116 (!) 109 101 (!) 103 Resp: 18 18 16 16 Temp: 98.1 F (36.7 C) 97.8 F (36.6 C) TempSrc: Temporal Temporal SpO2: 99% 100% 97% 100% Weight: Height: Physical Exam: Gen: NAD, alert and cooperative HEENT: Normocephalic, atraumatic Resp: CTABL, no WRR Card: mild tachycardia, no murmur Abd: soft, NT/ND, no rebound, no guarding. Present BS Incisions: C/D/I Medications: Current Facility-Administered Medications Medication Dose Route Frequency Provider Last Rate Last Admin sodium chloride flush 0.9 % injection 5-40 mL 5-40 mL IntraVENous 2 times per day Aniceto Ca,DO sodium chloride flush 0.9 % injection 5-40 mL 5-40 mL IntraVENous PRN Aniceto Ca, DO 0.9 % sodium chloride infusion 25 mL IntraVENous PRN Aniceto Ca DO acetaZOLAMIDE (DIAMOX) extended release capsule 500 mg 500 mg Oral 2 times per day Aniceto Ca, DO 500 mg at 05/07/21 2100 sodium chloride flush 0.9 % injection 10 mL 10 mL IntraVENous 2 times per day Aniceto Ca, DO sodium chloride flush 0.9 % injection 10 mL 10 mL IntraVENous PRN Aniceto Ca, DO 0.9 % sodium chloride infusion 25 mL IntraVENous PRN Aniceto Ca, DO ondansetron (ZOFRAN) injection 4 mg 4 mg IntraVENous Q6H PRN Aniceto Ca DO simethicone (MYLICON) chewable tablet 80 mg 80 mg Oral Q6H PRN Aniceto Ca, DO docusate sodium (COLACE) capsule 100 mg 100 mg Oral BID PRN Aniceto Ca, DO lansinoh lanolin ointment Topical Q1H PRN Aniceto Ca DO ferrous sulfate (IRON 325) tablet 325 mg 325 mg Oral BID WC Aniceto Ca, DO 325 mg at vitamin 27-1 MG tablet 1 tablet 1 tablet Oral Daily Ainceto Ca, DO 1 tablet at 05/07/21 2100 enoxaparin (LOVENOX) injection 40 mg 40 mg SubCUTAneous Daily Aniceto Ca DO clindamycin (CLEOCIN) 900 mg in dextrose 5 % 50 mL IVPB 900 mg IntraVENous Q8H Aniceto Ca DO50 mL/hr at 05/08/21 0518 900 mg at 05/08/21 0518 gentamicin (GARAMYCIN) 420 mg in dextrose 5 % 250 mL IVPB 420 mg IntraVENous Q24H Aniceto CaDO Stopped at 05/07/21 1530 ibuprofen (ADVIL;MOTRIN) tablet 600 mg 600 mg Oral Q6H PRN Aniceto Ca, DO 600 mg at 05/07/21 2100 Diagnostics: CTA CHEST W WO CONTRAST Result Date: 05/07/2021 [id number] Tom[facility] ACCESSION EXAMDATE/TIME PROCEDURE ORDERING PROVIDER [id number] 05/07/2021 08:12 EDT CTA Chest w/ + w/o [id number] -Rashard CA ANICETO CPT code 23362 Q9967 Reason For Exam (CTA Chest w/ + w/o Contrast) , tachycardia, fever, r/o PE Report CTA of the chest, 05/07/2021. Reason for examination: Shortness of breath and tachycardia. COMPARISON: None available. TECHNIQUE: 1 mm axial images were obtainedthrough the chest following intravenous administration of 75 mL of Isovue 370. Coronal and sagittal reconstructions were created and reviewed. 3-dimensional postprocessing was performed by myself on an independent workstation at the time of interpretation with saved volume rendered images. FINDINGS: Pulmonary vasculature: Contrast bolus is significantly suboptimal. Evaluation is also significantly limited by motion artifact. No definite pulmonary thromboembolic disease is detected. Lungs/pleura: Evaluation of the lung parenchyma is also limited by motion. The lungs are largely clear with mildatelectasis in the dependent portions of the lungs and in the lower lung jones. There is no pleural effusion. Mediastinum: Cardiac size is difficult normal to mildly enlarged. The thoracic aorta is n ormal in caliber. There are visible but technically nonenlarged mediastinal and hilar lymph nodes. Chest wall/soft tissues: There are borderline enlarged axillary lymph nodes bilaterally which may also be reactive in nature. No supraclavicular lymphadenopathy is noted. Upper abdomen: The abdomen was evaluated on a dedicated CT obtained earlier on 05/07/2021 IMPRESSION: Significantly limited examination. No definite pulmonary thromboembolic disease. Other findings as described. Computed Tomography Report Report Dictated on --- Final --- Dictated: 05/07/2021 8:27 am Dictating Physician: MD ROBLEDO JOE M Signed Date and Time: 05/07/2021 8:32 am Signed by: MD ROBLEDO JOE M Transcribed Date and Time: 05/07/2021 8:27 CT Abdomen Pelvis W Contrast Result Date: 05/07/2021 Patient Name: SHAHEED BOBO Computed Tomography ACCESSION EXAMDATE/TIME PROCEDURE ORDERING PROVIDER [id number] 05/07/2021 05:[address] Abdomen/Pelvis w/ IV [id number] -NILE STONE Contrast (IV Onl CPT code 13283 Q9967 Reason For Exam (CT Abdomen/Pelvis w/ IVContrast (IV Onl) abdominal pain, s/p c section Report HISTORY: Recent with fever chills vaginal bleeding After intravenous contrast sections performed through the abdomen and pelvis. Included sections through the lung bases show no definite abnormality. Liver spleen are normal size with no definite abnormalities. Pancreas adrenal regions and kidneys are negative. No free air or free fluid is seen. IMPRESSION: 1. Enlarged uterus with prior C- section with blood density in the myometrium seen on sagittal view in the fundus. 2. Trace air is seen in the urinary bladder probably due to previous instrumentation. Prior with tiny air bubbles anterior abdominal wall /medial aspect right rectus abdominis muscle and subcutaneous tissues. Report Dictated on --- Final --- Dictated: 05/07/2021 6:07 am Dictating Physician: MD CRAWFORD WILLIAM Signed Date and Time: 05/07/2021 6:12 am Signed by: MD CRAWFORD WILLIAM Transcribed Date and Time:05/07/2021 6:07 US NON OB TRANSVAGINAL Result Date: 05/07/2021 Patient Name: SHAHEED BOBO Ultrasound ACCESSION EXAM DATE/TIME PROCEDURE ORDERING PROVIDER [id number] 05/07/2021 04:23 EDT US Transvaginal [id number] -NLIE STONE CPT code 08745 Reason For Exam (US Transvaginal) sepsis s/p concern for rpoc Report CLINICAL INFORMATION: Sepsis, status post section A sonogram of the pelvis is performed transvaginally. The uterus is anteverted and measures 16.8 x 16.4 x 9.4 cm. The echogenicity of the myometrium is heterogeneous. The endometrial stripe measures 10.9 mm and is slightly heterogeneous. The right ovary and left ovary are not visualized No free fluid or pelvic masses are noted. IMPRESSIONS: Enlarged heterogeneous uterus with mildly thickened endometrium-this may represent possible blood clots or retained products of conception, but neither entity is certain. Report Dictated on --- Final --- Dictated: 05/07/2021 4:52 am Dictating Physician: MD CRAWFORD WILLIAM Signed Date and Time: 05/07/2021 4:57 am Signed by: MD CRAWFORD WILLIAM Transcribed Date and Time: 05/07/2021 4:52 Labs: Admission on 05/07/2021 Component Date Value Ref Range Status Lactic Acid 05/07/2021 1.8 0.7 - 2.0 mmol/L Final WBC 05/07/2021 12.1* 3.6 - 10.7 10*3/uL Final RBC 05/07/2021 2.90* 3.80 - 5.20 10*6/uL Final Hemoglobin 05/07/2021 7.3* 11.7 - 16.0 g/dL Final Hematocrit 05/07/2021 23.7* 35.0 - 47.0 % Final MCV 05/07/2021 81.8 79.0 - 98.0 fL Final MCH 05/07/2021 25.2* 26.0 - 34.0 pg Final MCHC 05/07/2021 30.8* 32.0 - 36.0 % Final RDW 05/07/2021 16.6* 11.5 - 14.5 % Final Platelets 05/07/2021 442* 140 - 440 10*3/uL Final MPV 05/07/2021 6.4* 7.4 - 10.4 fL Final Granulocytes % 05/07/2021 82.1* 40.0 - 80.0 % Final Lymphocyte % 05/07/2021 9.6* 20.0 - 40.0 % Final Monocytes 05/07/2021 7.6 2.0 - 10.0 % Final Eosinophils 05/07/2021 0.5* 1.0 - 6.0 % Final Basophils 05/07/2021 0.2 0.0 - 2.0 % Final Absolute Neut # 05/07/2021 9.9* 1.8 - 7.0 10*3/uL Final Absolute Lymph # 05/07/2021 1.2 1.0 - 4.3 10*3/uL Final Absolute [place] # 05/07/2021 0.9* 0.0 - 0.8 10*3/uL Final Absolute Eos # 05/07/2021 0.1 0.0 - 0.5 10*3/uL Final Absolute Baso # 05/07/2021 0.0 0.0 - 0.2 10*3/uL Final Sodium 05/07/2021 135 135 - 145 mmol/L Final Potassium 05/07/2021 4.0 3.5 - 5.1 mmol/L Final Chloride 05/07/2021 108* 98 - 107 mmol/L Final CO2 05/07/2021 16* 22 - 30 mmol/L Final Anion Gap 05/07/2021 10 3 - 13 mmol/L Final Glucose 05/07/2021 125* 70 - 100 mg/dL Final BUN 05/07/2021 11 9 - 20 mg/dL Final CREATININE 05/07/2021 0.68 0.52 - 1.25 mg/dL Final eGFR 05/07/2021 >90.0 >60 mL/min Final EGFR IF NonAfrican Polish 05/07/2021 >90.0 >60 mL/min Final Comment: KDIGO guidelines provide the following GFR categories: Stage GFR(ml/min/1.73 m2) Terms G1 >=90 Normal or high G2 60-89 Mildly decreased* G3a 45-59 Mildly to moderately decreased G3b 30-44 Moderately to severely decreased G4 15-29 Severely decreased G5 <15 Kidney failure *Relative to young adult level. In the absence of evidence of kidney damage, neither GFR category G1 nor G2 fulfill the criteria for CKD. The CKD-EPI equation is validated in individuals 18 years of age and older. Currently the best equation for estimating glomerular filtration rate (GFR) from serum creatinine in children is the Bedside Tomlinson equation. It is less accurate in patients with extremes of muscle mass, restriction of dietary protein, ingestion of creatine, extra-renal metabolism of creatinine, or treatment with medications that affect renal tubular creatinine secretion. Calcium 05/07/2021 9.3 8.4 - 10.4 mg/dL Final Albumin,Serum 05/07/2021 3.5 3.5 - 5.0 g/dL Final Total Protein 05/07/2021 6.6 6.3 - 8.2 g/dL Final Total Bilirubin 05/07/2021 0.5 0.2 - 1.3 mg/dL Final Alkaline Phosphatase 05/07/2021 63 38 - 126 U/L Final ALT 05/07/2021 24 0 - 34 U/L Final Comment: The ALT test is performed by an updated assay method. Please note that the reference intervals have been changed and are now sex specific. AST 05/07/2021 26 15 - 46 U/L Final Glucose, Ur 05/07/2021 Normal Normal (<70) mg/dL Final . Total Protein, Urine 05/07/2021 Negative Negative mg/dL Final . Bilirubin Urine 05/07/2021 Negative Negative mg/dL Final . Urobilinogen, Urine 05/07/2021 Normal Normal (0-1) mg/dL Final . pH, Urine 05/07/2021 7.5 5.0 - 8.0 NA Final . Specific [place], Urine 05/07/2021 1.016 1.005 - 1.030 NA Final . Occult Blood,Urine 05/07/2021 0.2* Negative mg/dL Final . Ketones, Urine 05/07/2021 Negative Negative mg/dL Final . Nitrite, Urine 05/07/2021 Negative Negative NA Final . LEUKOCYTES, UA 05/07/2021 Negative Negative [place]/uL Final . Appearance 05/07/2021 Clear Clear NA Final . Color, Urine 05/07/2021 Light-Yellow Lt. Yellow NA Final . RBC, UA 05/07/2021 3-5* 0 - 2 /[HPF] Final . WBC, UA 05/07/2021 0-2 0 - 5 /[HPF] Final . Squam Epithel, UA 05/07/2021 3-5 3 - 5 /[HPF] Final . Bacteria, UA 05/07/2021 Negative Negative /[HPF] Final . Hyaline Casts, UA 05/07/2021 Negative Negative /[LPF] Final . Bilirubin, Direct 05/07/2021 0.0 0.0 - 0.3 mg/dL Final Troponin I 05/07/2021 <0.012 0.000 - 0.034 ng/mL Final . Respiratory Panel Molecular, with * 05/07/2021 Final Value:NEGATIVE: No targets were detected by the [employer] Upper Respiratory Pathogens PCR Panel. _ Expected Result: Not Detected The [employer] Upper Respiratory Pathogens PCR Panel can detect the following targets: SARS-CoV-2, Adenovirus, Coronavirus 229E, Coronavirus HKU1, Coronavirus NL63, Coronavirus OC43, Human Metapneumovirus, Human Rhinovirus/Enterovirus, Influenza A, Influenza B, Parainfluenza Virus 1, Parainfluenza Virus 2, Parainfluenza Virus 3, Parainfluenza Virus 4, Respiratory Syncytial Virus, Bordetella pertussis, Bordetella parapertussis, Chlamydia pneumoniae, Mycoplasma pneumoniae. Method: Real-time PCR. C. trachomatis DNA 05/07/2021 Final Value:NOT Detected Chlamydia trachomatis Nucleic Acid NOT Detected by DNA Amplification using the [employer] System. Culture is the only recommended test in medical-legal cases such as suspected child abuse or molestation. NEISSERIA GONORRHOEAE, DNA 05/07/2021 Final Value:NOT Detected Neisseria gonorrhoeae Nucleic Acid NOT Detected by DNA Amplification using the [employer] System. Culture is the only recommended test in medical-legal cases such as suspected child abuse or molestation. Add On 05/07/2021 Accepted NA Final Specimen available & acceptable for analysis. Gram Stain Result 05/07/2021 Final Value:Gram stain contains mixed morphotypes consistent with transition from normal vaginal violeta. Trichomonas Vaginali, Molecular 05/07/2021 Final Value:NOT Detected Reference Interval: Not Detected Method: Real-time PCR. Negative results do not completely rule out infection with Trichomonas vaginalis. WBC 05/08/2021 8.8 3.6 - 10.7 10*3/uL Final RBC 05/08/2021 2.90* 3.80 - 5.20 10*6/uL Final Hemoglobin 05/08/2021 7.4* 11.7 - 16.0 g/dL Final Hematocrit 05/08/2021 23.8* 35.0 - 47.0 % Final MCV 05/08/2021 82.0 79.0 - 98.0 fL Final MCH 05/08/2021 25.5* 26.0 - 34.0 pg Final MCHC 05/08/2021 31.1* 32.0 - 36.0 % Final RDW 05/08/2021 16.9* 11.5 - 14.5 % Final Platelets 05/08/2021 417 140 - 440 10*3/uL Final MPV 05/08/2021 6.1* 7.4 - 10.4 fL Final Sodium 05/08/2021 135 135 - 145 mmol/L Final Potassium 05/08/2021 3.7 3.5 - 5.1 mmol/L Final Chloride 05/08/2021 110* 98 - 107 mmol/L Final CO2 05/08/2021 20* 22 - 30 mmol/L Final Anion Gap 05/08/2021 5 3 - 13 mmol/L Final Glucose 05/08/2021 100 70 - 100 mg/dL Final BUN 05/08/2021 10 9 - 20 mg/dL Final CREATININE 05/08/2021 0.59 0.52 - 1.25 mg/dL Final eGFR 05/08/2021 >90.0 >60 mL/min Final EGFR IF NonAfrican Polish 05/08/2021 >90.0 >60 mL/min Final Comment: KDIGO guidelines provide the following GFR categories: Stage GFR(ml/min/1.73 m2) Terms G1 >=90 Normal or high G2 60-89 Mildly decreased* G3a 45-59 Mildly to moderately decreased G3b 30-44 Moderately to severely decreased G4 15-29 Severely decreased G5 <15 Kidney failure *Relative to young adult level. In the absence of evidence of kidney damage, neither GFR category G1 nor G2 fulfill the criteria for CKD. The CKD-EPI equation is validated in individuals 18 years of age and older. Currently the best equation for estimating glomerular filtration rate (GFR) from serum creatinine in children is the Bedside Tomlinson equation. It is less accurate in patients with extremes of muscle mass, restriction of dietary protein, ingestion of creatine, extra-renal metabolism of creatinine, or treatment with medications that affect renal tubular creatinine secretion. Calcium 05/08/2021 9.2 8.4 - 10.4 mg/dL Final Assessment/Plan: Shaheed Bobo 20 y.o. female , POD #6 s/p PCD admitted for fever and tachycardia Postoperative fever of unknown origin, suspected PP endometritis -afebrile over night, mildly tachycardic -Labs: WBC down to 8.8, hgb stable at 7.4, HCO3 improving now at 20, resp panel negative, GC/CT/Trich negative, Urine cx pending, BV/Yeast pending -CTA unremarkable but limited due to suboptimal contrast administration -Abx: continue IV Clindamycin and Gentamycin, s/p Zosyn and Vancx1 -Consults: Neurology and nephrology -DVT Proph:SCDs while in bed, ppx lovenox qd -Diet:General - ADAT -Encourage ambulation and use of incentive spirometer as tolerated -IVF: Discontinue -Plan: Continue IV abx for 24 hours, monitor vitals, possible transition to PO abx or discontinuation of IV and discharge this evening vs tomorrow morning Anemia -Hgb stable at 7.4 -Asymptomatic -Continue PO iron and colace Idiopathic intracranial hypertension -Dx 01/01/21 -Denies MORRIS or VC this AM -Neuro consulted, IIH well controlled and signed off due to no further workup needed -Continue Diamox BID even in the setting of low bicarb -Nephrology consulted for low bicarb, appreciate recs DAYANA TRIVEDI, 05/08/2021, 6:24 AM Patient independently examined and evaluated by myself Agree with above history, physical examination, assessment, and plan with changes/additions made in bold through out. Patient shows signs of improvement overnight. Afebrile and vitals overall stable. Mild tachycardia noted. Will continue antibiotics and monitor vitals. Possible discharge home this evening vs tomorrow AM. Leukocytosis resolved. Neurology recommends continuation of Diamox for IIH and will get Nephrology's recommendations due to low bicarb. Further plan pending discussion with Dr. La. Aniceto aC, PGY-IV Associated attestation - Nicolle Jade PA-C - 05/08/2021 9:38 AM EDT Attestation Statement I saw and evaluated the patient. I agree with the findings and plans of the resident physician, fausto as documented in his note . Doing well overall; urine cx negative. Fungal cx and blood cx still pending. Afebrile, still slightly tachycardic. Appreciate Nephrology recs regarding low bicarb. Neurology signed off. Continue current management with likely d/c tomorrow morning. I spent 15 minutes in the visit, with more than 50% of the total [id number] time of the visit in counseling/coordination of care. * Staci Vines [facility] - 05/07/2021 4:52 PM EDT [facility] MEDICATION RECONCILIATION Date: 05/07/21 Room:0263/1723B Patient Name: Shaheed Bobo Allergies: Patient has no known allergies. Age: 20 y.o. Sex: female Note: New information has been obtained regarding the patient s medications. The medication reconciliation has been updated to reflect this. Please consider making these changes/additions if appropriate: Recommendations: 1. Medications originally on the home list that patient has NOT recently filled. If patient to take@ DC, please write Rx. a. Diamox 500mg q12h (patient states she's taking med prior to admission; HOWEVER, last filled 03/25/21 for 30 day supply at her [facility], currently ordered as an inpt) b. Oxycodone 5mg q6h prn (patient states she's NOT taking med prior to admission, currently orderedas an inpt) Please page/call with questions. Date: 05/07/21 Time: 4:52 PM Name: Staci Vines RPH, PharmD Pager: [phone] * Wendy Valenzuela RN - 05/07/2021 4:29 PM EDT Pt arrived to floor. Vitals stable. Call light in reach, Family at bedside. documented in this encounterSUMVT Work Phone: [phone] 430-939003-19-2022 History of Present illness Narrative* Fiona Holman, PROFESSIONAL SKATER - CRITICAL CARE EDUCATOR - 05/05/2021 4:50 AM EDT Images from the original note were not included. POST OPERATIVE DAY # 3 Shaheed Bobo is a 20 y.o. who was seen & examined today. Her was complicated by: Patient Active Problem List Diagnosis Blurry vision Influenza vaccination declined by patient Papilledema Today she is doing well without any chief complaint. Her lochia is light. She denies chest pain, shortness of breath, headache, lightheadedness and blurred vision. She is ambulating well. Flatus present. Bowel movement absent. Voiding spontaneously. She is tolerating solids. Pain is controlled yes. Vital Signs: Vitals: 05/03/21 1131 [id number] BP: 112/60 110/62 105/66 112/64 Pulse: 95 96 91 98 Resp: Temp: 98 F (36.7 C) 97.9 F (36.6 C) 97.2 F (36.2 C) 98.1 F (36.7 C) TempSrc: Temporal Temporal Temporal Temporal SpO2: 99% 98% 98% 97% Weight: Height: Urine Input & Output last 24hrs: No intake or output data in the 24 hours ending 05/05/21 0451 Physical Exam: GENERAL APPEARANCE: alert, well appearing, in no apparent distress ABDOMEN : benign non-tender, without masses or organomegaly palpable UTERUS : normal size, well involuted, firm, non-tender Desc; incision: healing well, no drainage, no erythema, no swelling, well approximated Labs: Lab Results Component Value Date WBC 12.2 (H) 05/02/2021 HGB 7.0 (L) 05/03/2021 HCT 26.9 (L) 05/02/2021 MCV 80.3 05/02/2021 PLT 368 05/02/2021 O POS Antibody Screen: Antibody Screen Date Value Ref Range Status 05/02/2021 NEG NA Final Lab Results Component Value Date RUBELLAIGG 82.3 01/02/2021 LABOR DELIVERY ??? SCD's ONLY (labor through ambulation) SCD's PLUS Prophylactic Anticoagulation until discharge SCD's PLUS Prophylactic Anticoagulation for 6 weeks SCD's PLUS Therapeutic Anticoagulation for 6 weeks Vaginal Delivery [] BMI ? 40 kg/m2 Delivery All patients Vaginal Delivery [] BMI ? 40 kg/m2 AND [] Antepartum hospitalization ? 72 hours within the past month Delivery 1 Major Risk Factor: [] BMI ? 35 kg/m2 [] Low Risk Thrombophilia [] PPH+RBCs, IR, or operation [] Infection+Antibiotics [] Antepartum hospitalization ? 72 hours within the past month [] PMH: Sickle Cell, SLE, Cardiac Dz, Active IBD, Active Cancer, Nephrotic Syndrome OR 2 Minor Risk Factors: [] Multiple gestation [] Age > 40 [] PPH ? 1,000cc [] (+)FMH of VTE [] Smoker [] Preeclampsia [] BMI ? 40 kg/m2 AND [] Low Risk Thrombophilia OR ANY OF THE FOLLOWING: [] High Risk Thrombophilia without prior VTE [] Low Risk Thrombophilia with (+)FMH of VTE [] Any single prior VTE ANY OF THE FOLLOWING: [] Already on LMWH/UFH [] Multiple prior VTE [] High Risk Thrombophilia with prior VTE Low Risk Thrombophilia: FVL (heterozygous), Prothrombin (heterozygous), Protein C, Protein S High Risk Thrombophilia: FVL (homozygous), Prothrombin (homozygous), FVL+Prothrombin (heterozygous), Antithrombin III, APLS Assessment/Plan: 1. Shaheed Bobo is a 20 y.o. POD # 2 s/p PLTCS 2/2 Intracranial Hypertension 2. Care - Doing well, VSS - Female - Breast feeding - Contraception: Per Private Attending - Encourage ambulation and use of incentive spirometer - D/C grier catheter and saline lock IV on POD #1 - Postop Hb 7.0 - VTE Prophylaxis: Prophylactic Dosing until Discharge 3. Intracranial Hypertension/Papilledema - Diagnosed during , severe papilledema and opening pressure on LP elevated at 53 - Follows with Dr. Rocha, Neurology, plan to follow-up - Currently on Diamox 500 mg BID 4. Anxiety/ADHD - Not on medications - Mood stable this AM 5. Acute on Chronic Anemia - Pre-op Hgb 8.6 -> POD#1 Hgb 7.0 - PO Iron and Colace BID - Asymptomatic this AM 6. Disposition: Continue current care Based on my clinical assessment, this patient is safe for self discharge (does not need transport by wheelchair) if she so chooses. Provider's Name: MD DAYANA Hess DO 05/05/2021, 4:51 AM Attestation Statement I saw and evaluated the patient. I agree with the findings and plans of the resident physician, andagree as documented in her note . POD#3 s/p primary LTCS Meeting milestones and desires discharge Denies headache or visual concerns. No longer - denies breast issues. Reinforced good support, ice prn and sx of mastitis to report Pain controlled Voiding and passing gas Minimal vag bleeding. Reports no issues with incision. (pt was seen in NICU and holding baby declined assessment by me atthis time) Plan for discharge today and follow up with MFM in 2 weeks. Reinforced postoperative precautions, s/s depression, neurological concerns to report. I spent 15 minutes in the visit, with more than 50% of the total [id number]-[id number] time of the visit in counseling/coordination of care. * Crystal Najera DTR - 05/04/2021 12:08 PM EDT Nutrition rescreen completed. Patient assigned a level 1. * Nicolle Jade PA-C - 05/04/2021 5:32 AM EDT Images from the original note were not included. POST OPERATIVE DAY # 2 Sahheed Bobo is a 20 y.o. who was seen & examined today. Her was complicated by: Patient Active Problem List Diagnosis Chronic hypertension affecting Blurry vision Influenza vaccination declined by patient Papilledema headache in second trimester Labor and delivery, indication for care Today she is doing well without any chief complaint. Her lochia is light. She denies chest pain, shortness of breath, headache, lightheadedness and blurred vision. She is ambulating well. Flatus present. Bowel movement absent. Voiding spontaneously. She is tolerating solids. Pain is controlled yes. Vital Signs: Vitals: 05/03/21 0115 05/03/21 0745 05/03/21 1131 05/03/21 2132 BP: 102/67 (!) 97/53 112/60 110/62 Pulse: 96 101 95 96 Resp: 16 18 16 16 Temp: 97.4 F (36.3 C) 98.3 F (36.8 C) 98 F (36.7 C) 97.9 F (36.6 C) TempSrc: Temporal Temporal Temporal Temporal SpO2: 94% 98% 99% 98% Weight: Height: Urine Input & Output last 24hrs: No intake or output data in the 24 hours ending 05/04/21 0532 Physical Exam: GENERAL APPEARANCE: alert, well appearing, in no apparent distress ABDOMEN : benign non-tender, without masses or organomegaly palpable UTERUS : normal size, well involuted, firm, non-tender Desc; incision: Bandage in place Labs: Lab Results Component Value Date WBC 12.2 (H) 05/02/2021 HGB 7.0 (L) 05/03/2021 HCT 26.9 (L) 05/02/2021 MCV 80.3 05/02/2021 PLT 368 05/02/2021 O POS Antibody Screen: Antibody Screen Date Value Ref Range Status 05/02/2021 NEG NA Final Lab Results Component Value Date RUBELLAIGG 82.3 01/02/2021 LABOR DELIVERY ??? SCD's ONLY (labor through ambulation) SCD's PLUS Prophylactic Anticoagulation until discharge SCD's PLUS Prophylactic Anticoagulation for 6 weeks SCD's PLUS Therapeutic Anticoagulation for 6 weeks Vaginal Delivery [] BMI ? 40 kg/m2 Delivery All patients Vaginal Delivery [] BMI ? 40 kg/m2 AND [] Antepartum hospitalization ? 72 hours within the past month Delivery 1 Major Risk Factor: [] BMI ? 35 kg/m2 [] Low Risk Thrombophilia [] PPH+RBCs, IR, or operation [] Infection+Antibiotics [] Antepartum hospitalization ? 72 hours within the past month [] PMH: Sickle Cell, SLE, Cardiac Dz, Active IBD, Active Cancer, Nephrotic Syndrome OR 2 Minor Risk Factors: [] Multiple gestation [] Age > 40 [] PPH ? 1,000cc [] (+)FMH of VTE [] Smoker [] Preeclampsia [] BMI ? 40 kg/m2 AND [] Low Risk Thrombophilia OR ANY OF THE FOLLOWING: [] High Risk Thrombophilia without prior VTE [] Low Risk Thrombophilia with (+)FMH of VTE [] Any single prior VTE ANY OF THE FOLLOWING: [] Already on LMWH/UFH [] Multiple prior VTE [] High Risk Thrombophilia with prior VTE Low Risk Thrombophilia: FVL (heterozygous), Prothrombin (heterozygous), Protein C, Protein S High Risk Thrombophilia: FVL (homozygous), Prothrombin (homozygous), FVL+Prothrombin (heterozygous), Antithrombin III, APLS Assessment/Plan: 1. Shaheed Bobo is a 20 y.o. POD # 2 s/p PLTCS 2/2 Intracranial Hypertension Care - Doing well, VSS - Female - Breast feeding - Contraception: Per Private Attending - Encourage ambulation and use of incentive spirometer - D/C grier catheter and saline lock IV on POD #1 - Postop Hb 7.0 - VTE Prophylaxis: Prophylactic Dosing until Discharge Intracranial Hypertension/Papilledema - Diagnosed during , severe papilledema and opening pressure on LP elevated at 53 - Follows with last saw Neurology (Dr. Rocah) - CMP normal on admission - Possible potential neurology consult Anxiety/ADHD - No meds - Stable on admission Chronic Anemia - Pre-op 8.6 --> 7.0 - Asymptomatic - Continue Iron, Colace BID Disposition: Continue current care Based on my clinical assessment, this patient is safe for self discharge (does not need transport by wheelchair) if she so chooses. Provider's Name: MD AMERICA Hess, 05/04/2021, 5:32 AM Attestation Statement I saw and evaluated the patient. I agree with the findings and plans of the resident physician, andagrdari as documented in her note . Doing well POD#2, meeting milestones. Discussed Neurology f/u; pt will plan to call Dr. Rocha's office to discuss PP plan/follow-up. Encouraged pt to continue Diamox as prescribed. Will anticipated/c to home tomorrow POD#3, precautions reviewed. I spent 20 minutes in the visit, with more than 50% of the total [id number] time of the visit in counseling/coordination of care. * Nicolle Jade PA-C - 05/03/2021 5:29 AM EDT Images from the original note were not included. POST OPERATIVE DAY # 1 Shaheed Bobo is a 20 y.o. who was seen & examined today. Her was complicated by: Patient Active Problem List Diagnosis Chronic hypertension affecting Blurry vision Influenza vaccination declined by patient Papilledema headache in second trimester Labor and delivery, indication for care Today she is doing well without any chief complaint. Her lochia is light. She denies chest pain, shortness of breath, headache, lightheadedness and blurred vision. She is ambulating well. Flatus present. Bowel movement absent. Voiding spontaneously. She is tolerating solids. Pain is controlled yes. Vital Signs: Vitals: 05/02/21 1310 05/02/21 1535 05/02/21201005/03/21 0115 BP: 129/82 114/65 102/67 Pulse: 98 98 96 Resp: Temp: 97.5 F (36.4 C) 97.7 F (36.5 C) 97.6 F (36.4 C) 97.4 F (36.3 C) TempSrc: Temporal Temporal Temporal Temporal SpO2: 95% 97% 94% Weight: Height: Urine Input & Output last 24hrs: Intake/Output Summary (Last 24 hours) at 05/03/2021 0529 Last data filed at 05/02/2021 2114 Gross per 24 hour Intake 1500 ml Output 3475 ml Net -1975 ml Physical Exam: GENERAL APPEARANCE: alert, well appearing, in no apparent distress ABDOMEN : benign non-tender, without masses or organomegaly palpable UTERUS : normal size, well involuted, firm, non-tender, bandage in place Labs: Lab Results Component Value Date WBC 12.2 (H) 05/02/2021 HGB 8.6 (L) 05/02/2021 HCT 26.9 (L) 05/02/2021 MCV 80.3 05/02/2021 PLT 368 05/02/2021 O POS Antibody Screen: Antibody Screen Date Value Ref Range Status 05/02/2021 NEG NA Final Lab Results Component Value Date RUBELLAIGG 82.3 01/02/2021 LABOR DELIVERY ??? SCD's ONLY (labor through ambulation) SCD's PLUS Prophylactic Anticoagulation until discharge SCD's PLUS Prophylactic Anticoagulation for 6 weeks SCD's PLUS Therapeutic Anticoagulation for 6 weeks Vaginal Delivery [] BMI ? 40 kg/m2 Delivery All patients Vaginal Delivery [] BMI ? 40 kg/m2 AND [] Antepartum hospitalization ? 72 hours within the past month Delivery 1 Major Risk Factor: [] BMI ? 35 kg/m2 [] Low Risk Thrombophilia [] PPH+RBCs, IR, or operation [] Infection+Antibiotics [] Antepartum hospitalization ? 72 hours within the past month [] PMH: Sickle Cell, SLE, Cardiac Dz, Active IBD, Active Cancer, Nephrotic Syndrome OR 2 Minor Risk Factors: [] Multiple gestation [] Age > 40 [] PPH ? 1,000cc [] (+)FMH of VTE [] Smoker [] Preeclampsia [] BMI ? 40 kg/m2 AND [] Low Risk Thrombophilia OR ANY OF THE FOLLOWING: [] High Risk Thrombophilia without prior VTE [] Low Risk Thrombophilia with (+)FMH of VTE [] Any single prior VTE ANY OF THE FOLLOWING: [] Already on LMWH/UFH [] Multiple prior VTE [] High Risk Thrombophilia with prior VTE Low Risk Thrombophilia: FVL (heterozygous), Prothrombin (heterozygous), Protein C, Protein S High Risk Thrombophilia: FVL (homozygous), Prothrombin (homozygous), FVL+Prothrombin (heterozygous), Antithrombin III, APLS Assessment/Plan: 1. Shaheed Bobo is a 20 y.o. POD # 1 s/p PLTCS 2/2 Intracranial Hypertension and FHT Cat II 2. Care - Doing well, VSS - Female infant - Both breast and bottle - Contraception: Per Private Attending - Encourage ambulation and use of incentive spirometer - D/C grier catheter and saline lock IV on POD #1 - Postop Hb Pending - VTE Prophylaxis: Prophylactic Dosing until Discharge Intracranial Hypertension/Papilledema - Diagnosed during , severe papilledema and opening pressure on LP elevated at 53 - Follows with last saw Neurology (Dr. Rocha) - CMP normal on admission - Possible potential neurology consult Anxiety/ADHD - No meds - Stable on admission Chronic Anemia - Pre-op 8.6 --> 7.0 - Asymptomatic - Continue Iron, Colace BID Disposition: Continue current care Based on my clinical assessment, this patient is safe for self discharge (does not need transport by wheelchair) if she so chooses. Provider's Name: MD AMERICA Hess DO 05/03/2021, 5:29 AM Attestation Statement I saw and evaluated the patient. I agree with the findings and plans of the resident physician, fausto as documented in her note . Doing well POD#1, awaiting flatus, otherwise meeting milestones. Baby girl in [facility] N[facility]. Continue current management. I spent 15 minutes in the visit, with more than 50% of the total mejo-sy-hyhw time of the visit in counseling/coordination of care. * Nubia Cosby, - 05/02/2021 10:22 AM EDT Images from the original note were not included. Department of Obstetrics and Gynecology Labor and Delivery Triage Note CHIEF COMPLAINT: r/o labor, nausea HISTORY OF PRESENT ILLNESS: The patient is a 20 y.o. 39w2d admits for nausea that started this morning with abdominal cramping.Patient denies sick contacts, fevers/chills, dysuria, foul smelling urine, diarrhea, emesis. She has history of intracranial hypertension and is scheduled for PCD 05/07 03/21 [facility]. She has not had prior episodes of nausea in other than first trimester. OB History 1 Para Term AB Living SAB IAB Ectopic Molar Multiple Live Births Patient presents with a chief complaint as above. Denies DFM/VB/LOF/CTX Estimated Due Date: Estimated Date of Delivery: 05/07/21 PAST MEDICAL HISTORY: Past Medical History: Diagnosis Date ADHD IIH (idiopathic intracranial hypertension) PAST SURGICAL HISTORY: History reviewed. No pertinent surgical history. SOCIAL HISTORY: reports that she has never smoked. She has never used smokeless tobacco. She reports that she does not drink alcohol and does not use drugs. MEDICATIONS: Prior to Admission medications Medication Sig Start Date End Date Taking? Authorizing Provider magnesium oxide (MAG-OX) 400 MG tablet Take 400 mg by mouth daily Patient not taking: Reported on 05/02/2021 Historical Provider, vitamin B-6 (PYRIDOXINE) 100 MG tablet Take 100 mg by mouth daily Patient not taking: Reported on 05/02/2021 Historical Provider, metoclopramide (REGLAN) 10 MG tablet Take 1 tablet by mouth 3 times daily (with meals) Patient not taking: Reported on 01/19/2021 01/05/21 Moon Segura DO acetaZOLAMIDE (DIAMOX) 500 MG extended release capsule Take 1 capsule by mouth every 12 hours 01/05/21 oMon Segura DO CARE: Complicated by: Intracranial hypertension REVIEW OF SYSTEMS: Pertinent items are noted in HPI. APPEARANCE: Pain: no PHYSICAL EXAM: Vital Signs: VS wnl-reviewed/Respirations normal effort Vitals: 05/02/21 1007 BP: 132/78 Pulse: 101 Resp: 16 Temp: 98.8 F (37.1 C) TempSrc: Oral Weight: (!) 254 lb (115.2 kg) Height: 5' 6 (1.676 m) Abdomen: soft, NT, ND, no rebound/guarding Uterus: gravid/non-tender LE Edema: trace heart rate: Category II tachycardia with moderate variability and spontaneous accelerations Cervix: closed Contraction frequency: Isolated contraction Membranes: Intact GENERAL LABS: No results found for this or any previous visit (from the past 24 hour(s)). TRIAGE COURSE: Vertex by BSUS. IVF for tachycardia. Zofran for nausea. CBC, T&S and CMP drawn for possible PCD today. improved with IVF. However, given that patient is 39+w and requires a PCD, recommendation is to proceed with today. Patient last ate at 0600. Discussed with OB anesthesia and will wait to proceed until noon as this is not urgent given now cat I FHT. Safety huddle held with charge operator, patient RN, and OB anesthesia. Will proceed with unscheduled nonemergent PCD. Notified NICUas well due to plan for general anesthesia. IMPRESSION: Papilledema Nausea DISCUSSED WITH PNC PROVIDER: Dr. Bland DISPOSITION: Admit to L&D documented in this [facility] Work Phone: [phone] NoteDepartment of Obstetrics and Gynecology Delivery Discharge Summary Admission on 05/02/2021 9:35 AM Reason for admission: headache, cat II FHT Intrapartum Course: 20yo at 39w2d here with headache and nausea. complicated by intracranial hypertension and papilledema. FHT cat II on arrival for tachycardia which resolved with fluids. Due to cat II and being 39+ weeks gestation, recommend delivery at this time. After counseling in the office and again today in triage, patient desires primary due to IIH. Surgery will under general anesthesia. 39w2d PC-01 Indications for Delivery: Was patient delivered between 37w0d - [id number]? NO Surgical Operations & Procedures: Date of delivery: 05/02/21 Delivery Type: without labor Anesthesia: General Endotracheal Anesthesia Laceration(s): n/a Delivery Complications: none EBL: 1000 cc Pertinent Findings & Procedures: Information for the patient's : Eva Bobo [[id number]] female Weight: 9 lb 1.3 oz (4.12 kg) Apgars: Information for the patient's : Eva Bobo [[id number]] One Minute : 8 Five Minute : 9 Course: Uncomplicated : Female infant (Chidi) Blood Type/Rh: O POS Antibody Screen: Antibody Screen Date Value Ref Range Status 05/02/2021 NEG NA Final Rubella: Lab Results Component Value Date RUBELLAIGG 82.3 01/02/2021 Contraception: oral progesterone-only contraceptive : No VTE Prophylaxis: Prophylactic Dosing until Discharge Meds: Medication List START taking these medications docusate sodium 100 MG capsule Commonly known as: COLACE Take 1 capsule by mouth 2 times daily as needed for Constipation ferrous sulfate 325 (65 Fe) MG tablet Commonly known as: IRON 325 Take 1 tablet by mouth 2 times daily (with meals) ibuprofen 600 MG tablet Commonly known as: ADVIL;MOTRIN Take 1 tablet by mouth every 6 hours oxyCODONE 5 MG immediate release tablet Commonly known as: ROXICODONE Take 1 tablet by mouth every 6 hours as needed for Pain for up to 5 days. vitamin 27-1 MG Tabs tablet Take 1 tablet by mouth daily CONTINUE taking these medications acetaZOLAMIDE 500 MG extended release capsule Commonly known as: DIAMOX Take 1 capsule by mouth every 12 hours STOP taking these medications magnesium oxide 400 MG tablet Commonly known as: MAG-OX metoclopramide 10 MG tablet Commonly known as: REGLAN vitamin B-6 100 MG tablet Commonly known as: PYRIDOXINE Where to Get Your Medications These medications were sent to [facility] - [place], [place] - [address] - P [phone] - F [phone] [address] [place] [address] ? docusate sodium 100 MG capsule ? ferrous sulfate 325 (65 Fe) MG tablet ? ibuprofen 600 MG tablet ? oxyCODONE 5 MG immediate release tablet ? vitamin 27-1 MG Tabs tablet Activity: Activity as tolerated Diet: Regular diet Follow up Care: Follow up appointment in 2 weeks for incision check and 6 weeks with cM Condition on discharge: Stable Discharge to: Home Discharge date: 05/05/21 Discharge Dx: 1. S/p PLTCS 2/2 intracranial hypertension 2. Papilledema 3. Anxiety/ADHD 4. Chronic anemia 5. Obesity Instructions to Patient:: Pelvic Rest (no intercourse, tampons, douching, etc) x 6 weeks Specific discharge instruction printed Labor and delivery, indication for care [O75.9] Patient Active Problem List Diagnosis ? Blurry vision ? Influenza vaccination declined by patient ? Papilledema Comments: Home care, Follow-up care and control were reviewed. Signs and symptoms of mastitis and Post Depression were reviewed. The patient is to notify her physician if any of these occur. Alicia Bland MD on 05/02/2021 at 1:03 [facility]03-16-2022 Hospital Discharge instructions* Instructions* Alicia Bland MD - 05/02/2021 Images from the original note were not included. Thank you for allowing us to care of you at [facility]. This time can be one of many emotional ups and downs and many changes in your life. In these first weeks try to take good care of yourself because you will likely feel very tired. It may take 4 to 6 weeks to feel like yourself again, and possibly longer if you had a . FOLLOW-UP: Your follow-up care is a bustamante part of your treatment and safety. Follow-up with your OB providerin 4weeks or as specified by your OB provider. If you had high blood pressure, visit your OB provider within 3-5 days after being home. Most women's blood pressure will return to pre- levels after delivery. However, some patients continueto have problems with their blood pressure, and some even get worse. Very high blood pressure can lead to seizures or stroke which can be life threatening. If ordered by your provider, take your blood pressure at home and call your OB provider if you have a high reading. Your OB provider can write you a prescription for a blood pressure monitor if you do not have one. Be sure to make and go to all appointments, and call your OB provider if you are having problems. It's also a good idea to know your test results and keep a list of the medicines you take. BLEEDING Vaginal bleeding will decrease in amount over the next few weeks. 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 Use pads instead of tampons for the bloody flow that may last as long as 2 weeks. You will notice that as your activity increases, your flow may increase. Call your provider if you are saturating one maxi pad in an hour & passing large clots for 3 hours or more. ACTIVITY NO SEXUAL activity for 6 weeks or until advised by your OB provider; Nothing in vagina: intercourse, tampons, or douching. Begin to think about your reproductive life plan. Talk to your OB provider about if and when you would like another baby in the future. The recommendation for safe spacing is 18-24 months. Showering is okay; NO tub baths, swimming, or hot tubs. Gradually increase your activity. Resume exercise regimen only after advised by your )OB provider. Avoid lifting anything heavier than ten pounds or a gallon of milk for six weeks. Avoid driving 1 week for vaginal delivery and 2 weeks for section, or longer if you are onprescription pain medicine unless otherwise instructed by your OB provider . Rise slowly from a lying to sitting and then a standing position. Climb stairs carefully. You may feel tired or have a lack of energy. You may continue your vitamin to replenish nutrients post-delivery. Nap when whenever you can to catch up on sleep. EMOTIONS You may feel castillo, sad, teary, & overwhelmed for the first 2 weeks ; however, feelings of depression may occur any time within the first year after delivery. Contact your OBprovider if you feel you may be showing signs of depression, or have thoughts of harmingyourself or or anyone.. WOUND CARE For Vaginal Delivery: Shower daily, and cleanse your perineum (bottom) with mild soap from front to back. Use the plasticsquirt bottle until bleeding stops each time you use the restroom instead of wiping with toilet paper. Ease soreness of hemorrhoids and the area between your vagina and rectum with ice compresses or witch tammi pads. If used, stitches will dissolve in 4-6 weeks on their own. You may use a sitz bath or soak in a clean tub with drain open and water running for comfort. Kegel exercises will help restore bladder control. To do these tighten your muscles as if you were stopping your urine flow. Hold for a few seconds and then relax. Do these throughout the day. For Section Delivery: Keep your incision clean and dry. If you had steri-strips you may remove these once they start falling off. If you have suzette they need to be removed 3-10 daysafter delivery. If you have steri-strips, remove after 7 - 10 days. Do not wear clothing that irritates the incision line. If your incision is in a crease that is not dry, use a hair-dryer to dry the area 3 times a day. If you develop fever, shaking chills, redness, swelling, drainage or discharge from your wound, or if your wound looks like it is coming apart call your provider immediately. BREAST CARE If you develop a warm, red, tender area on your breast or develop a fever contact your OB provider.If your breasts become engorged ask your provider because treatment can vary according to your needs. DIET & CONSTIPATION Eat a well-balanced diet focusing on foods high in fiber and protein such as: whole grain cereals and breads, fruits and vegetables and legumes (eg, beans, lentils) Drink 8-10 glasses of fluids daily, especially water. Limit caffeine. To avoid constipation you may take a mild lonk-xaw-enlwwgg stool softener (such as colace) as recommended by your OB provider. SWELLING Try to keep your legs elevated when you are sitting or lying down. Stay hydrated and take walks. If you had high blood pressure, weigh yourself at the same time each day. Write down your weight and take the record to your OB provider appointment. MEDICATIONS Take all medications prescribed for you exactly as ordered. Don't take any drugs not prescribed to you or over the counter medicines unless recommended by yourprovider. Don't smoke. WHEN TO CALL THE OB PROVIDER Signs of infection, including fever and chills Increased bleeding: soaking more than one pad an hour or passing clots the size of an egg or larger. Wounds that become red, swollen or drain pus Vaginal discharge that smells foul New pain, swelling, or tenderness in your legs Pain that you can't control with the medications you've been given Pain, burning, urgency or frequency of urination, or persistent bleeding in the urine Cough, shortness of breath, or serious difficulty catching your breath Chest pain or pain in the upper right area of your belly Headache (very painful) or vision changes like blurry or double vision, seeing spots or 'auras' Swelling that is worse or weight gain of more than 3 pounds in 3 days Depression, suicidal thoughts, or feelings of harming someone else Breasts that are hot, red and accompanied by fever Any cracking or bleeding from the nipple or areola (the dark-colored area of the breast) You may have been given a magnet like this: If so, we encourage you to use it on your refrigerator as a reminder of when to call your OB provider. IIn case of an emergency, call 911 immediately. If you are Covid-19 positive or a Person Under Investigation (PUI) These could be signs that your COVID-19 symptoms are worsening and you may need emergency care: You are severely dizzy or lightheaded. You are confused or can't think clearly. Your face and lips have a blue color. You are unable to respond to others or are very hard to wake up. Prevention steps for People with confirmed or suspected COVID-19 (including persons under investigation) who do not need to be hospitalized and People with confirmed COVID-19 who were hospitalized and determined to be medically stable to go home Your healthcare provider and public health staff will evaluate whe ther you can be cared for at home. If it is determined that you do not need to be hospitalized and can be isolated at home, you willbe monitored by staff from your local or state health department. You should follow the prevention steps below until a healthcare provider or local or state health department says you can return to your normal activities. Stay home except to get medical care People who are mildly ill with COVID-19 are able to isolate at home during their illness. You should restrict activities outside your home, except for getting medical care. Do not go to work, school,or public areas. Avoid using public transportation, ride-sharing, or taxis. Separate yourself from other people and animals in your home People: As much as possible, you should stay in a specific room and away from other people in your home. Also, you should use a separate bathroom, if available. Animals: You should restrict contact with pets and other animals while you are sick with COVID-19, just like you would around other people. Although there have not been reports of pets or other animals becoming sick with COVID-19, it is still recommended that people sick with COVID-19 limit contactwith animals until more information is known about the virus. When possible, have another member ofyour household care for your animals while you are sick. If you are sick with COVID-19, avoid contact with your pet, including petting, snuggling, being kissed or licked, and sharing food. If you must care for your pet or be around animals while you are sick, wash your hands before and after you interact with pets and wear a facemask. Call ahead before visiting your provider If you have a medical appointment, call the healthcare provider and tell them that you have or may have COVID-19. This will help the healthcare provider's office take steps to keep other people from getting infected or exposed. Wear a facemask You should wear a facemask when you are around other people (e.g., sharing a room or vehicle) or pets and before you enter a healthcare provider's office. If you are not able to wear a facemask (for example, because it causes trouble breathing), then people who live with you should not stay in the same room with you, or they should wear a facemask if they enter your room. Cover your coughs and sneezes Cover your mouth and nose with a tissue when you cough or sneeze. Throw used tissues in a lined trash can. Immediately wash your hands with soap and water for at least 20 seconds or, if soap and water are not available, clean your hands with an alcohol-based hand changer fixer that contains at least 60% alcohol. Clean your hands often Wash your hands often with soap and water for at least 20 seconds, especially after blowing your nose, coughing, or sneezing; going to the bathroom; and before eating or preparing food. If soap and water are not readily available, use an alcohol-based hand changer fixer with at least 60% alcohol, covering all surfaces of your hands and rubbing them together until they feel dry. Soap and water are the best option if hands are visibly dirty. Avoid touching your eyes, nose, and mouth with unwashed hands. Avoid sharing personal household items You should not share dishes, drinking glasses, cups, eating utensils, towels, or bedding with otherpeople or pets in your home. After using these items, they should be washed thoroughly with soap and water. Clean all high-touch surfaces everyday High touch surfaces include counters, tabletops, doorknobs, bathroom fixtures, toilets, phones, keyboards, tablets, and bedside tables. Also, clean any surfaces that may have blood, stool, or body fluids on them. Use a household cleaning spray or wipe, according to the label instructions. Labels contain instructions for safe and effective use of the cleaning product including precautions you should take when applying the product, such as wearing gloves and making sure you have good ventilation during use of the product. Monitor your symptoms Seek prompt medical attention if your illness is worsening (e.g., difficulty breathing). Before seeking care, call your healthcare provider and tell them that you have, or are being evaluated for, COVID-19. Put on a facemask before you enter the facility. These steps will help the healthcare provider's office to keep other people in the office or waiting room from getting infected or exposed. Askyour healthcare provider to call the local or state health department. Persons who are placed underactive monitoring or facilitated self- monitoring should follow instructions provided by their localhealth department or occupational health professionals, as appropriate. When working with your local health department check their available hours. If you have a medical emergency and need to call 911, notify the dispatch personnel that you have, or are being evaluated for COVID-19. If possible, put on a facemask before emergency medical services arrive. Discontinuing home isolation Patients with confirmed COVID-19 should remain under home isolation precautions until the risk of secondary transmission to others is thought to be low. The decision to discontinue home isolation precautions should be made on a vinj-gw-jeec basis, in consultation with healthcare providers and [facility]. Information on COVID-19 for all patients Call your provider before your next appointment if you develop any of the following symptoms: fever, cough, fatigue, anorexia, shortness of breath, sputum production, and muscle pains. Headache, confusion, rhinorrhea, sore throat, hemoptysis, vomiting, and diarrhea have been reported but are less common. Some persons with COVID-19 have experienced gastrointestinal symptoms such as diarrhea and nausea prior to developing fever and lower respiratory tract signs and symptoms. Ways to Howe with Anxiety & Stress It is normal to feel anxious or worried about COVID-19. You might feel sad about canceling celebrations and staying away from family and friends. Keep in mind that most people do not get severely ill from COVID-19. It is important to have a planin case you get sick to prevent spreading the disease to others including an Advanced Care Plan (communicating and documenting your desired health care plan with family and healthcare team). You can take care of yourself by: ? Taking a break from watching the news ? Take deep breaths, stretch or meditate ? Getting exercise, eating healthy foods, and drinking plenty of water ? Finding activities you can enjoy inside your home ? Staying in touch with your family and friends. Tell your partner, family, and friends how you arefeeling. Advance Care Planning People with COVID-19 may have no symptoms, mild symptoms, such as fever, cough, and shortness of breath or they may have more severe illness, developing severe and fatal pneumonia. As a result, Advance Care Planning with attention to naming a health care decision maker (someone you trust to make healthcare decisions for you if you could not speak for yourself) and sharing other health care preferences is important BEFORE a possible health crisis. Please contact your Primary Care Provider to discuss Advance Care Planning. Learning About Coronavirus (COVID-19) Coronavirus (COVID-19): Overview What is coronavirus (COVID-19)? The coronavirus disease (COVID-19) is caused by a virus. It is an illness that was first found in [facility], in January 2019. It has since spread worldwide. The virus can cause fever, cough, and trouble breathing. In severe cases, it can cause pneumonia and make it hard to breathe without help. It can cause . Coronaviruses are a large group of viruses. They cause the common cold. They also cause more serious illnesses like [place] respiratory syndrome (MERS) and severe acute respiratory syndrome (SARS). COVID-19 is caused by a novel coronavirus. That means it's a new type that has not been seen in people before. This virus spreads ksdlec-oc-ctxntl through droplets from coughing and sneezing. It can also spreadwhen you are close to someone who is infected. It is always good practice to clean high touch surfaces frequently and avoid touching your mouth, nose and eyes until you have washed your hands if you touched these areas. What can you do to protect yourself from coronavirus (COVID-19)? The best way to protect yourself from getting sick is to: Wear a face mask. Avoid areas where there is an outbreak. Avoid contact with people who may be infected. Wash your hands often with soap or alcohol-based hand sanitizers. Avoid crowds and try to stay at least 6 feet away from other people. Wash your hands often, especially after you cough or sneeze. Use soap and water, and scrub for at least 20 seconds. If soap and water aren't available, use an alcohol-based hand changer fixer. Call 911 anytime you think you may need emergency care. For example, call if: You have severe trouble breathing. (You can't talk at all.) You have constant chest pain or pressure. You are severely dizzy or lightheaded. You are confused or can't think clearly. Your face and lips have a blue color. You pass out (lose consciousness) or are very hard to wake up. Call your OB Provider now if you develop symptoms such as: Shortness of breath. Fever. Cough. If you need to get care, call ahead to the provider's office for instructions before you go. Make sure you wear a face mask, to prevent exposing other people to the virus. Where can you get the latest information? The following health organizations are tracking and studying this virus. Their websites contain themost up-to-date information. You'll also learn what to do if you think you may have been exposed tothe virus. U.S. Centers for Disease Control and Prevention (CDC): The CDC provides updated news about the disease and travel advice. The website also tells you how to prevent the spread of infection. www.cdc.gov World Health Organization (WHO): WHO offers information about the virus outbreaks. WHO also has travel advice. www.who.int Current as of: May 19, 2019 Content Version: . [employer]. Care instructions adapted under license by your healthcare professional. If you have questions about a medical condition or this instruction, always ask your healthcare professional. [employer] disclaims any warranty or liability for your use of this information. General Recommendations for Routine Cleaning and Disinfection of Households Community members can practice routine cleaning of frequently touched surfaces (for example: tables, doorknobs, light switches, handles, desks, toilets, faucets, sinks) with household harness maker and EPA-registered disinfectants that are appropriate for the surface, following label instructions. Labels contain instructions for safe and effective use of the cleaning product including precautions you should take when applying the product, such as wearing gloves and making sure you have good ventilation during use of the product. These guidelines are focused on household settings and are meant for the general public. Cleaning refers to the removal of germs, dirt, and impurities from surfaces. Cleaning does not killgerms, but by removing them, it lowers their numbers and the risk of spreading infection. Disinfecting refers to using chemicals to kill germs on surfaces. This process does not necessarilyclean dirty surfaces or remove germs, but by killing germs on a surface after cleaning, it can further lower the risk of spreading infection. General Recommendations for Cleaning and Disinfection of Households with People Isolated in Home Care - Confirmed or suspected COVID 19 Household members should educate themselves about COVID-19 symptoms and preventing the spread of COVID-19 in homes. Clean and disinfect high-touch surfaces daily in household common areas (e.g. tables, hard-backed chairs, doorknobs, light switches, remotes, handles, desks, toilets, sinks) o In the bedroom/bathroom dedicated for an ill person: consider reducing cleaning frequency to as-needed (e.g., soiled items and surfaces) to avoid unnecessary contact with the ill person. - As much as possible, an ill person should stay in a specific room and away from other people in their home. - The caregiver can provide personal cleaning supplies for an ill person's room and bathroom, unless the room is occupied by child or another person for whom such supplies would not be appropriate. These supplies include tissues, paper towels, harness maker and EPA-registered disinfectants (see list link at CDC website). - If a separate bathroom is not available, the bathroom should be cleaned and disinfected after each use by an ill person. If this is not possible, the caregiver should wait as long as practical after use by an ill person to clean and disinfect the high-touch surfaces. How to clean and disinfect: Hard Surfaces Wear disposable gloves when cleaning and disinfecting surfaces. Gloves should be discarded after each cleaning. If reusable gloves are used, those gloves should be dedicated for cleaning and disinfection of surfaces for COVID-19 and should not be used for other purposes. Consult the heater operator's instructions for cleaning and disinfection products used. Clean hands immediately after gloves are removed. If surfaces are dirty, they should be cleaned using a detergent or soap and water prior to disinfection. For disinfection, diluted household bleach solutions, alcohol solutions with at least 70% alcohol, and most common EPA-registered household disinfectants should be effective. o Diluted household bleach solutions can be used if appropriate for the surface. Follow heater operator's instructions for application and proper ventilation. Check to ensure the product is not past itsexpiration date. Never mix household bleach with ammonia or any other cleanser. Unexpired householdbleach will be effective against coronaviruses when properly diluted. - Prepare a bleach solution by mixing: - 5 tablespoons (1/3rd cup) bleach per gallon of water or - 4 teaspoons bleach per quart of water o Products with EPA-approved emerging viral pathogens trinity healthpdf iconexternal icon are expected to be effective against COVID-19 based on data for harder to kill viruses. Follow the heater operator's instructions for all cleaning and disinfection products (e.g., concentration, application method and contact time, etc.). Soft (porous) surfaces such as carpeted floor, rugs, and drapes Remove visible contamination if present and clean with appropriate harness maker indicated for use on these surfaces. After cleaning: Launder items as appropriate in accordance with the heater operator's instructions. If possible, launder items using the warmest appropriate water setting for the items and dry items completely, or Clothing, towels, linens and other items that go in the laundry Wear disposable gloves when handling dirty laundry from an ill person and then discard after each use. If using reusable gloves, those gloves should be dedicated for cleaning and disinfection of surfaces for COVID-19 and should not be used for other household purposes. Clean hands immediately aftergloves are removed. o If no gloves are used when handling dirty laundry, be sure to wash hands afterwards. o If possible, do not shake dirty laundry. This will minimize the possibility of dispersing virus through the air. o Launder items as appropriate in accordance with the heater operator's instructions. If possible, launder items using the warmest appropriate water setting for the items and dry items completely. Dirtylaundry from an ill person can be washed with other people's items. o Clean and disinfect clothes hampers according to guidance above for surfaces. If possible, consider placing a garbage collector driver that is either disposable (can be thrown away) or can be laundered. CDC has a list of EPA approved cleaning products on their website - https://www.cdc.gov/coronavirus/ 2019-ncov/community/home/cleaning-disinfection.html https://www.Rac[employer]/Zsvuy-Lcqkgvyohqm-Ajzyflba-Products-List.pdf [employer] Stores with delivery and quill picking machine operator services: [employer]: Free quill picking machine operator at locations Delivery is $12.95 a month Website - [employer] [place]: Senior Nurse Manager $2.95 (1st order is free) Delivery is $14.95 Website - [employer] [place]: dry cell assembly supervisor is free Delivery is $5.95 Website [employer]: dry cell assembly supervisor is $4.95 Delivery is $9.95 [employer]: dry cell assembly supervisor is $4.95 Delivery is $9.95 [employer]: Can be ordered for delivery and quill picking machine operator with [employer] Website - [employer]: Free deliver for first 3 orders of $35 or more Website [employer] Will deliver from [facility], [facility], [employer], and [employer]. Annual membership is $99 Monthly membership is $14 documented in this encounterSUMMA Work Phone: 1(368) 748-814711-19-2021 Hospital Discharge instructions* Instructions* Moon Segura DO - 01/05/2021 Follow up appointment with your doctor/photographic process attendant - Call office for appointment today Activity - Normal Activity Call your doctor/photographic process attendant if you have: - leaking fluid - vaginal bleeding - regular contractions: More than 6 contractions in one hour - decreased movement - worsening abdominal (belly) pain - headache, blurry vision, increased swelling, upper abdominal pain If you are going home with contractions that are uncomfortable/painful- we recommend these coping strategies: rhythmic breathing, hydrotherapy, imagery or visualization, gentle massage, walking and changing your position. Treatment Verification: Shaheed Bobo was assessed on Labor and Delivery for a related visit on 01/05/21. Moon Segura, [facility] documented in this encounterSUMMA Work Phone: 1(872) 784-518311-19-2021 History of Present illness Narrative* Nancy Gibbs MD - 01/05/2021 11:24 AM EST General Neurology Follow-up Date of Service: 01/05/2021 Chief complaint: MORRIS, blurred vision (diplopia) Subjective: Pt seen in follow up for papilledema, IIH. No acute events o/n. LP performed 01/03 w/o complication. Pt continues to endorse sx of persistent headache with intensity 4/10 and accompanyingneck pain. Attributes this to sleeping position. Notes her blurred vision is improving. Ophthalmology notes papilledema improving on exam. MORRIS continues to be responsive to prn medication for pain. Otherwise no new complaints. Agreeable to outpatient neurological follow up after d/c. Medications: Scheduled Meds: lidocaine 1 patch TransDERmal Daily acetaZOLAMIDE 500 mg Oral 2 times per day sodium chloride flush 10 mL IntraVENous 2 times per day vitamin 1 tablet Oral Daily Continuous Infusions: sodium chloride PRN Meds:polyethylene glycol, diphenhydrAMINE, sodium chloride flush, sodium chloride, ondansetron OR ondansetron, acetaminophen OR acetaminophen, docusate sodium No Known Allergies Objective: Exam: BP 117/65 Pulse 94 Temp 97.5 F (36.4 C) (Temporal) Resp 16 Ht 5' 6 (1.676 m) Wt (!) 244 lb 11.4 oz (111 kg) SpO2 96% BMI 39.50 kg/m Constitutional: well-nourished. Head: Size/Trauma: normocephalic Neck: supple Heart: RRR, S1S2 Resp: Normal BS GI: soft, nontender Ext: Normal Neuro: General: awake and alert Cranial nerves: I: smell Not tested II: visual jones Full to confrontation II: pupils Equal, round, reactive to light III,VII: ptosis None III,IV,: extraocular muscles Full ROM V: mastication Normal V: facial light touch sensation Normal V,VII: corneal reflex Present VII: facial muscle function - upper Normal VII: facial muscle function - lower Normal VIII: hearing Normal IX: soft palate elevation Normal IX,X: gag reflex Present XI: trapezius strength 5/5 XI: sternocleidomastoid strength 5/5 XI: neck flexion strength 5/5 XII: tongue strength Normal Motor exam: normal strength, muscle mass, and tone in all extremities Sensation was normal to light touch Deep tendon reflexes were 2+ bilaterally Plantar responses were flexor bilaterally Cerebellar exam noted finger to nose without dysmetria bilaterally Gait: appropriate Data: LABS: No results found for this or any previous visit (from the past 24 hour(s)). RADIOLOGY: MRA HEAD WO CONTRAST Result Date: 01/03/2021 [id number] Imaging ACCESSION EXAM DATE/TIME PROCEDURE ORDERING PROVIDER [id number] 01/02/2021 18:17 EST MRA Head w/o Contrast [id number] NANCY BARTH CPT code 91637 Reason For Exam (MRA Head w/o Contrast) papilledema, headache, vertigo Report EXAMINATION: MRI BRAIN WITHOUT CONTRAST CLINICAL INDICATION: Severe papilledema on physical exam with visual disturbance. TECHNIQUE: Multi- planar multi-sequential MR imaging of thebrain was performed without intravenous contrast. MRA an MRV of the brain was performed utilizing 3-D mcfr-yf-yqiroi, without intravenous contrast. COMPARISON: None. FINDINGS: BRAIN: Prominence of the optic nerve sheaths bilaterally with flattening of the posterior sclera. Ventricles are normal in configuration. No cerebellar tonsillar ectopia. Solid is normal in appearance. Meckel's caves are not expanded. No acute infarction, intracranial hemorrhage or mass. Nonspecific focus of FLAIR hyperintensity in the right frontal centrum semiovale, possibly related to migraines or microangiopathic disease. No hydrocephalus. No extra-axial fluid collections. The skull base flow voids are present. The visualized intraorbital contents are normal. Scattered mucosal thickening in the paranasal sinuses. Trace left mastoid effusion. The visualized osseous structures, soft tissues and partially visualized parotid glands appear normal. MRA: Normal distal internal carotid arteries. The proximal anterior, middle and posterior cerebral arteries are patent bilaterally. Normal vertebrobasilar system. No evidence of vascular stenosis, occlusion, aneurysm or vascular malformation. Magnetic Resonance Imagi ng Report MRV: Dural Venous Sinuses: There is stenosis of bilateral lateral aspects of the transverse sinuses (series 7 image 24). Remaining dural venous sinuses are patent. Internal Cerebral Veins and Vein of Emre: Patent IMPRESSION: Imaging findings of papilledema with stenosis of the lateral aspects of bilateral transverse sinuses, suggestive of intracranial hypertension. No acute intracranial abnormality. MRA of the head is within normal limits. No dural venous sinus thrombosis. Report Dictated on --- Final --- Dictated: 01/03/2021 7:53 am Dictating Physician: MD JOEY, LUCÍA DELAROSA Signed Date and Time: 01/03/2021 8:09 am Signed by: MD JOEY, LUCÍA DELAROSA Transcribed Date and Time: 01/03/2021 7:53 US OB DETAIL ANATOMY SINGLE OR FIRST GESTATION Result Date: 01/02/2021 Patient Name: SHAHEED BOBO Maternal Medicine ACCESSION EXAM DATE/TIME PROCEDURE ORDERING PROVIDER [id number] 01/02/2021 10:16 EST [facility] [place] [id number] -CHERYLE Complete w/detail PHYLLIS Reason For Exam ([facility] US Complete w/detail) CHTN Report OBSTETRICS REPORT (Signed Final 01/02/2021 10:17 am) Patient Info ID #: [id number] : [birth year] (20 yrs) Name: SHAHEED BOBO Visit Date: 01/02/2021 09:41 am Performed By Attending: Sheron Vargas MD Location: Inpatient- Hospital Performed By: Ke Godwin Visit Type: Inpatient - Hospital Referred By: PAOLA THORNTON Service(s) Provided US Level II complete (Targeted OB) 34052 Indications No care Vital Signs Weight (lb): 244 Height: 5'6 BMI: 39.38 Evaluation Num Of Fetuses: 1 Heart Rate(bpm): 132 Cardiac Activity: Regular rhythm Lie: Longitudinal Presentation: Breech Placenta: Posterior Amniotic Fluid NELSON FV: Clinically Appropriate Largest Pocket(cm) 3.6 Biometry -------- BPD: 49.2 mm G. Age: 20w 6d 11 % CI: 67.6 % 70 - 86 OFD: 72.8 mm FL/HC: 18.6 % 18.4 - 20.2 HC: 197.8 mm G. Age: 22w 0d 36 % HC/AC: 1.23 1.06 - 1.25 Maternal Medicine Report AC: 160.2 mm G. Age: 21w 1d 17 % FL/BPD: 74.8 % 71 - 87 FL: 36.8 mm G. Age: 21w 5d 30 % FL/AC: 23.0 % 20 - 24 CER: 24.8 mm G. Age: 22w 5d 87 % NFT: 3.23 mm LV: 5.5 mm CM: 3.55 mm Est. FW: 423 gm 0 lb 15 oz 31 % Gestational Age LMP: 22w 0d Date: 08/01/20 JUJU: 05/08/21 U/S Today: 21w 3d JUJU: 05/12/21 Best: 22w 0d Det. By: LMP (08/01/20) JUJU: 05/08/21 Targeted Anatomy Central Nervous System Calvarium/Cranial V.: Normal appearance Choroid Plexus: Normal appearance Intracranial Berenice: Normal appearance Cereb./Vermis: Normal appearance Cavum: Normal appearance Cisterna Magna: Normal appearance Parenchyma: Normal appearance Corpus Callosum: Normal appearance Lateral Ventricles: Normal appearance Midline Falx: Normal appearance Spine Cervical: Suboptimal views Sacral: Suboptimal views Thoracic: Suboptimal views Shape/Curvature: Suboptimal views Lumbar: Suboptimal views Head/Neck Face: Normal appearance Profile: Suboptimal views Lips: Normal appearance Orbits/Eyes: Normal appearance Nuchal Fold: Normal appearance Mandible: Suboptimal views Nasal Bone: Suboptimal views Maxilla: Suboptimal views Palate: Suboptimal views Thorax Thoracic Contour: Normal appearance Ductal Arch: Normal appearance Lungs: Normal appearance SVC: Suboptimal Views 4 Chamber View: Normal appearance Interventr. Septum: Suboptimal views Cardiac Activity: Normal Cardiac [place]: Normal appearance Cardiac Rhythm: Normal Diaphragm: Normal appearance Cardiac Situs: Normal appearance 3 Vessel View: Normal appearance Rt Outflow Tract: Normal appearance 3 V Trachea View: Suboptimal views Lt Outflow Tract: Normal appearance IVC: Suboptimal Aortic Arch: Suboptimal views Crossing: Suboptimal views Abdomen Vent ral Wall: Normal appearance Lt Kidney: Normal appearance Cord Insertion: Normal appearance Rt Kidney: Normal appearance Situs: Normal appearance Bladder: Normal appearance Stomach: Normal appearance Extremities Lt Humerus: Normal appearance Lt Femur: Normal appearance Rt Humerus: Normal appearance Rt Femur: Normal appearance Lt Forearm: Normal appearance Lt Lower Leg: Normal appearance Rt Forearm: Normal appearance Rt Lower Leg: Normal appearance Lt Hand: Normal appearance Lt Foot: Suboptimal views Rt Hand: Normal appearance Rt Foot: Suboptimal views Other Maternal Medicine Report Umbilical Cord: Normal 3- vessel Genitalia: Suboptimal views Comment: Suboptimal ankle views Impression 1. Greenberg live intrautine at 22w 0d. The fetus is in the breech presentation. 2. The anatomic survey is limited by lie, position and acoustic shadowing. Limitations as noted above. 3. biometry consistent with clinically established JUJU. 4. Posterior placenta. Recommendations Recommendations: 1. Consider follow-up sonogram in 2 weeks to complete anaotmic survey. 2. Follow-up per inpatin service. Ultrasound is not diagnostic of chromosomal aneuploidy and does not detect all subtle defects. Normal ultrasound findings do not guarantee normal outcomes. Sheron Vargas MD Electronically Signed Final Report 01/02/2021 10: 17 am --- Final --- Dictated: 01/02/2021 9:41 am Dictating Physician: Contributor_system SEC Watch_K Spine Signed Date and Time: 01/02/2021 10:18 am Signed by: [employer], [employer] Ultrasound ACCESSION EXAM DATE/TIME PROCEDURE ORDERING PROVIDER [id number] 01/02/2021 10:16 EST MUS [id number] -CHERYLE, Complete w/detail PHYLLIS Reason For Exam ([facility] US Completew/detail) [place] Report OBSTETRICS REPORT (Signed Final 01/02/2021 10:17 am) Patient Info ID #: [id number] : [birth year] (20 yrs) Name: SHAHEED BOBO Visit Date: 01/02/2021 09:41 am Performed By Attending: Sheron Vargas MD Location: Inpatient- Hospital Performed By: Ke Godwin Visit Type: Inpatient - Hospital Referred By: PAOLA THORNTON Service(s) Provided US Level II complete (Targeted OB) [id number] Ultrasound Report Indications No care Vital Signs Weight (lb): 244 Height: 5'6 BMI: 39.38 Evaluation ------- --------- Num Of Fetuses: 1 Heart Rate(bpm): 132 Cardiac Activity: Regular rhythm Lie: Longitudinal Presentation: Breech Placenta: Posterior Amniotic Fluid NELSON FV: Clinically Appropriate Largest Pocket(cm) 3.6 Biometry -------- BPD: 49.2 mm G. Age: 20w 6d 11 % CI: 67.6 % 70 - 86 OFD: 72.8 mm FL/HC: 18.6 % 18.4 - 20.2 HC: 197.8 mm G. Age: 22w 0d 36 % HC/AC: 1.23 1.06 - 1.25 AC: 160.2 mm G. Age: 21w 1d 17 % FL/BPD: 74.8 % 71 - 87 FL: 36.8 mm G. Age: 21w 5d 30 % FL/AC: 23.0 % 20 - 24 CER: 24.8 mm G. Age: 22w 5d 87 % NFT: 3.23 mm LV: 5.5 mm CM: 3.55 mm Est. FW: 423 gm 0 lb 15 oz 31 % Gestational Age LMP: 22w 0d Date: 08/01/20 JUJU: 05/08/21 U/S Today: 21w 3d JUJU: 05/12/21 Best: 22w 0d Det. By: LMP (08/01/20) JUJU: 05/08/21 Targeted Anatomy Central Nervous System Calvarium/Cranial V.: Normal appearance Choroid Plexus: Normal appearance Intracranial Berenice: Normal appearance Cereb./Vermis: Normal appearance Cavum: Normal appearance Cisterna Magna: Normal appearance Parenchyma: Normal appearance Corpus Callosum: Normal appearance Lateral Ventricles:Normal appearance Midline Falx: Normal appearance Spine Cervical: Suboptimal views Sacral: Suboptimal views Thoracic: Suboptimal views Shape/Curvature: Suboptimal views Lumbar: Suboptimal views Head/Neck Face: Normal appearance Profile: Suboptimal views Lips: Normal appearance Orbits/Eyes: Normal appearance Ultrasound Report Nuchal Fold: Normal appearance Mandible: Suboptimal views Nasal Bone: Suboptimal views Maxilla: Suboptimal views Palate: Suboptimal views Thorax Thoracic Contour: Normal appearance Ductal Arch: Normal appearance Lungs: Normal appearance SVC: Suboptimal Views 4 Chamber View: Normal appearance Interventr. Septum: Suboptimal views Cardiac Activity: Normal Cardiac [place]: Normal appearance Cardiac Rhythm: Normal Diaphragm: Normal appearance Cardiac Situs: Normal appearance 3 Vessel View: Normal appearance Rt Outflow Tract: Normal appearance 3 V Trachea View: Suboptimal views Lt Outflow Tract: Normal appearance IVC: Suboptimal Aortic Arch: Suboptimal views Crossing: Suboptimal views Abdomen Ventral Wall: Normal appearance Lt Kidney: Normal appearance Cord Insertion: Normal appearance Rt Kidney: Normal appearance Situs: Normal appearance Bladder: Normal appearance Stomach: Normal appearance Extremities Lt Humerus: Normal appearance Lt Femur: Normal appearance Rt Rubin linda: Normal appearance Rt Femur: Normal appearance Lt Forearm: Normal appearance Lt Lower Leg: Normal appearance Rt Forearm: Normal appearance Rt Lower Leg: Normal appearance Lt Hand: Normal appearance Lt Foot: Suboptimal views Rt Hand: Normal appearance Rt Foot: Suboptimal views Other Umbilical Cord: Normal 3- vessel Genitalia: Suboptimal views Comment: Suboptimal ankle views Impression 1. Greenberg live intrautine at 22w 0d. The fetus is in the breech presentation. 2. The anatomic survey is limited by lie, position and acoustic shadowing. Limitations asnoted above. 3. biometry consistent with clinically established JUJU. 4. Posterior placenta. Re commendations Recommendations: 1. Consider follow-up sonogram in 2 weeks to complete anaotmic survey. 2. Follow-up per inpatin service. Ultrasound is not diagnostic of chromosomal aneuploidy and does not detect all subtle defects. Normal ultrasound findings do not guarantee normal outcomes. Sheron Vargas MD Electronically Signed Final Report 01/02/2021 10:17 am --- Final --- Dictated: 01/02/2021 9:41 am Dictating Physician: Gretchen JeeranKamiK Spine Signed Date and Time: 01/02/2021 10:18 am Signed by: Gretchen JeeranE_K Spine MRV HEAD W WO CONTRAST Result Date: 01/03/2021 Patient Name: SHAHEED BOBO [facility]#: [id number] Magnetic Resonance Imaging ACCESSION EXAM DATE/TIME PROCEDURE ORDERING PROVIDER [id number] 01/02/2021 18:17 EST MRV Head [id number] NANCY BARTH CPT code 30535 Reason For Exam (MRV Head) papilledema, headache, vertigo Report EXAMINA TION: MRI BRAIN WITHOUT CONTRAST CLINICAL INDICATION: Severe papilledema on physical exam with visual disturbance. TECHNIQUE: Multi-planar multi-sequential MR imaging of the brain was performed without intravenous contrast. MRA an MRV of the brain was performed utilizing 3-D [id number], withoutintravenous contrast. COMPARISON: None. FINDINGS: BRAIN: Prominence of the optic nerve sheaths bilaterally with flattening of the posterior sclera. Ventricles are normal in configuration. No cerebellar tonsillar ectopia. Solid is normal in appearance. Meckel's caves are not expanded. No acute infarction, intracranial hemorrhage or mass. Nonspecific focus of FLAIR hyperintensity in the right frontal centrum semiovale, possibly related to migraines or microangiopathic disease. No hydrocephalus. No extra-axial fluid collections. The skull base flow voids are present. The visualized intraorbital contents are normal. Scattered mucosal thickening in the paranasal sinuses. Trace left mastoid effusion. The visualized osseous structures, soft tissues and partially visualized parotid glands appear normal. MRA: Normal distal internal carotid arteries. The proximal anterior, middle and posterior cerebral arteries are patent bilaterally. Normal vertebrobasilar system. No evidence of vascular stenosis, occlusion, aneurysm or vascular malformation. Magnetic Resonance Imaging Report MRV: Dural Venous Sinuses: There is stenosis of bilateral lateral aspects of the transverse sinuses (series 7 image24). Remaining dural venous sinuses are patent. Internal Cerebral Veins and Vein of Emre: Patent IMPRESSION: Imaging findings of papilledema with stenosis of the lateral aspects of bilateral transverse sinuses, suggestive of intracranial hypertension. No acute intracranial abnormality. MRA of the head is within normal limits. No dural venous sinus thrombosis. Report Dictated on --- Final --- Dictated: 01/03/2021 7:53 am Dictating Physician: MD JOEY, LUCÍA DELAROSA Signed Date and Time: 01/03/2021 8:09 am Signed by: MD JOEY, LUCÍA DELAROSA Transcribed Date and Time: 01/03/2021 7:53 MRI BRAIN WO CONTRAST Result Date: 01/03/2021 [id number] Resonance Imaging ACCESSION EXAM DATE/TIME PROCEDURE ORDERING PROVIDER [id number] 01/02/2021 18:17 EST MRI Brain w/o Contrast [id number] NANCY BARTH CPT code 57442 Reason For Exam (MRI Brain w/o Contrast) papilledema, vertigo, headache Report EXAMINATION: MRI BRAIN WITHOUT CONTRAST CLINICAL INDICATION: Severe papilledema on physical exam with visual disturbance. TECHNIQUE: Multi-planar multi-sequential MR imaging of the brain was performed without intravenous contrast. MRA an MRV of the brain was performed utilizing3-D [id number], without intravenous contrast. COMPARISON: None. FINDINGS: BRAIN: Prominence of the optic nerve sheaths bilaterally with flattening of the posterior sclera. Ventricles are normal in configuration. No cerebellar tonsillar ectopia. Solid is normal in appearance. Meckel's caves are not expanded. No acute infarction, intracranial hemorrhage or mass. Nonspecific focus of FLAIR hyperintensity in the right frontal centrum semiovale, possibly related to migraines or microangiopathic disease. No hydrocephalus. No extra- axial fluid collections. The skull base flow voids are present. The visualized intraorbital contents are normal. Scattered mucosal thickening in the paranasal sinuses. Trace left mastoid effusion. The visualized osseous structures, soft tissues and partially visualized parotid glands appear normal. MRA: Normal distal internal carotid arteries. The proximal anterior, middle and posterior cerebral arteries are patent bilaterally. Normal vertebrobasilar system. No evidence of vascular stenosis, occlusion, aneurysm or vascular malformation. Magnetic Resonance Imaging Report MRV: Dural Venous Sinuses: There is stenosis of bilateral lateral aspects of the transverse sinuses (series 7 image 24). Remaining dural venous sinuses are patent. Internal Cerebral Veinsand Vein of Emre: Patent IMPRESSION: Imaging findings of papilledema with stenosis of the lateral aspects of bilateral transverse sinuses, suggestive of intracranial hypertension. No acute intracranial abnormality. MRA of the head is within normal limits. No dural venous sinus thrombosis. Report Dictated on --- Final --- Dictated: 01/03/2021 7:53 am Dictating Physi chapincito: MD JOEY, LUCÍA DELAROSA Signed Date and Time: 01/03/2021 8:09 am Signed by: MD JOEY, MAURY Transcribed Date and Time: 01/03/2021 7:53 Neuroimaging and labs personally reviewed Assessment/Plan: 1. Papilledema in the setting of dizziness/tinnitus, headache, - Patient initially hypertensive at OSH with systolic pressure 170+, has since been normotensive without administration of antihypertensive medication - CT head obtained at OSH negative for acute findings - MRI/A/V head obtained, showed papilledema with stenosis of the lateral aspects of the transverse sinuses, suggestive of intracranial hypertension with no acute intracranial abnormality - LP performed 01/03/2021: opening pressure recorded at 53 cm H2O, 32 cc fluid removed, closing pressure recorded as 15 cm H2O - Will switch patient to Diamox XR 500 mg bid starting tonight (2100), pt received morning dose - Will provide pt with neuro follow up in discharge instructions 2. HTN - BP normotensive since admission - OBGYN monitoring for preeclampsia/eclampsia - magnesium sulfate ordered for seizure prophylaxis - see above for further recommendations 3. IUP, 22wk4d - OBGYN managing Neuro signing off Associated attestation - Nicolette Kelley MD - 01/05/2021 12:04 PM EST I have seen, examined and evaluated the patient with the resident physician or nurse practitioner under my direct supervision. I have reviewed the resident physician's or nurse practitioner's note and agree with the assessment and plan of care as documented with this addendum. No acute overnight events. MORRIS and vision have both improved. Still describes a mild MORRIS with postural component (now worse when standing/sitting), but overall improving. Exam unchanged. CSF 01/03/21 W1/R0/ OCB's pending MRI Brain, MRA head, MRV head w/o contrast 01/02/21 Imaging findings of papilledema with stenosis of the lateral aspects of bilateral transverse sinuses, suggestive of intracranial hypertension. No acute intracranial abnormality. MRA of the head is within normal limits. No dural venous sinus thrombosis. Assessment and Plan: 20 yo female currently 22 weeks who presents with MORRIS, blurry vision, and concern for papilledema. MORRIS/vision changes -Initially, IIH with papilledema and elevated OP of 53 -S/p large volume tap and on diamox -Now describes MORRIS consistent with low pressure MORRIS -Encouraged her to drink fluids, slow positional changes -Overall, she states the MORRIS has improved -Anticipate improvement as she calibrates to pressure changes -However, if the MORRIS should worsen or become more pronounced with upright posture, would then be concerned for CSF leak -Patient will need continued outpatient neurology follow up for MORRIS management -She should also follow up with ophthalmology for continued monitoring of papilledema -Will defer to OB * Haseeb Torres MD - 01/04/2021 4:14 PM EST OPHTHALMOLOGY PROGRESS NOTE Date of Service: 01/04/2021 Primary Care Provider: Bryant Grimm MD Assessment: Shaheed is a 20 y.o. female with improvement of papilledema and visual acuity following reduction of intracranial pressure Plan: As per neuro Interval History: Shaheed is a 20 y.o. female who presents with S/P spinal tap with pressure of 53 down to 15! Physical Exam: VISUAL ACUITY near SC OD: 20/40, OS: 20/100 TONOMETRY palpation OD: soft OS: soft PUPILS OD: 3 to 2 left pupil more sluggish than right OS: 3 to 2 Not recorded Haseeb Torres MD * Margy Nuñez MS, RD, LD - 01/04/2021 2:33 PM EST Comprehensive Nutrition Assessment Type and Reason for Visit: Initial (DT referral for HTN) Nutrition Recommendations/Plan: 1. Continue with Regular diet as tolerated 2. Monitor need for oral nutritional supplements if po intake <50% 3. Suggest document po intake in nursing flow sheets 4. Obtain current weight 5. RD continue to monitor overall nutritional status and follow up weekly Nutrition Assessment: Patient is being admitted for concern for PreEclampsia. Patient went to the eye doctor for blurred vision/ double vision for the last week. Found to have papilledema and sent [facility] ED. Also endorsing worsening headaches the last week, which are similar to previous migraines. Tylenol PRN does not improve them significantly. Denies any hx of hypertension, but does have significant family hx including both parents. Has no care. postiive home test, but first confirmation is today. Patient sleeping soundly, family at bedside. Room dark, will stop back as able. Malnutrition Assessment: Malnutrition Status: Insufficient data Context: Acute Illness Estimated Daily Nutrient Needs: Energy (kcal): 4394-1979 (30-35); Weight Used for Energy Requirements: [place] Protein (g): 71-83 (1.2-1.4); Weight Used for Protein Requirements: [place] Fluid (ml/day): per MD Nutrition Related Findings: +bowel sounds; BLE edema; Dany 23; - I&O; IUP @ 22/3 weeks Wounds: None Current Nutrition Therapies: Primary Diet: Regular Anthropometric Measures: Height: 5' 6 (167.6 cm) Current Body Weight: no current weight Admission Body Weight: 244 lb (110.7 kg) (stated) [place] Body Weight: 130 lbs Nutrition Diagnosis: Increased nutrient needs related to increase demand for energy/nutrients as evidenced by (IUP) Predicted inadequate energy intake related to (current medical condition) as evidenced by (chronic headache) Nutrition Interventions: Food and/or Nutrient Delivery: Continue Current Diet Nutrition Education/Counseling: No recommendation at this time Coordination of Nutrition Care: Continue to monitor while inpatient Goals: Patient consume >75% meals Nutrition Monitoring and Evaluation: Behavioral-Environmental Outcomes: None Identified Food/Nutrient Intake Outcomes: Food and Nutrient Intake Physical Signs/Symptoms Outcomes: Biochemical Data, GI Status, Fluid Status or Edema, Weight, Skin Discharge Planning: Continue current diet Contact: pager [phone] * Nancy Gibbs MD - 01/04/2021 10:48 AM EST General Neurology Follow-up Date of Service: 01/04/2021 Chief complaint: Headache, blurred vision Subjective: Pt seen in follow up for papilledema, IIH. No acute events o/n. Lumbar puncture performed yesterday with opening pressure of 53 cm H2O, 32 cc fluid removed, closing pressure recorded at 15 cm H2O. Pt reports onset of mild- moderate intensity headache during LP which is unchanged as of this morning. Responding to prn pain medications. Blurred vision persistent at this time and unchanged. She is agreeable to being started on preventive medication for management of her intracranial hypertension. No new complaints this am, continues to endorse symptoms of constipation. Medications: Scheduled Meds: sodium chloride flush 10 mL IntraVENous 2 times per day vitamin 1 tablet Oral Daily Continuous Infusions: sodium chloride PRN Meds:diphenhydrAMINE, sodium chloride flush, sodium chloride, ondansetron OR ondansetron, acetaminophen OR acetaminophen, docusate sodium No Known Allergies Objective: Exam: BP 102/63 Pulse 97 Temp 98.6 F (37 C) (Temporal) Resp 20 Ht 5' 6 (1.676 m) Wt (!) 244 lb11.4 oz (111 kg) SpO2 96% BMI 39.50 kg/m Constitutional: well-nourished. Head: Size/Trauma: normocephalic Neck: supple Heart: RRR, S1S2 Resp: Normal BS GI: soft, nontender Ext: Normal Neuro: General: awake and alert Cranial nerves: I: smell Not tested II: visual jones Full to confrontation II: pupils Equal, round, reactive to light III,VII: ptosis None III,IV,: extraocular muscles Full ROM V: mastication Normal V: facial light touch sensation Normal V,VII: corneal reflex Present VII: facial muscle function - upper Normal VII: facial muscle function - lower Normal VIII: hearing Normal IX: soft palate elevation Normal IX,X: gag reflex Present XI: trapezius strength 5/5 XI: sternocleidomastoid strength 5/5 XI: neck flexion strength 5/5 XII: tongue strength Normal Motor exam: normal strength, muscle mass, and tone in all extremities Sensation was normal to joint position sense, light touch, a pin prick, proprioception, temperatureand vibration Deep tendon reflexes were 2+ bilaterally Plantar responses were flexor bilaterally Cerebellar exam noted no tremors noted Gait: Patient assessed in hospital bed Data: LABS: Recent Results (from the past 24 hour(s)) Creatinine Clearance, Urine, 24 HR Collection Time: 01/03/21 2:29 PM Result Value Ref Range CREATININE 0.44 (L) 0.52 - 1.25 mg/dL PROTIME/INR & PTT Collection Time: 01/03/21 2:29 PM Result Value Ref Range Protime 10.7 9.0 - 12.0 s INR 1.0 0.9 - 1.1 NA aPTT 26.6 20.0 - 30.5 s CSF Cell Count with Differential Collection Time: 01/03/21 4:16 PM Result Value Ref Range Appearance clear NA Color, CSF see below NA Nucleated Cells, CSF 1 0 - 5 [cells]/uL Red blood cells count, CSF 0 [RBC]/uL Protein, CSF Collection Time: 01/03/21 4:16 PM Result Value Ref Range Protein, CSF 23.4 12.0 - 60.0 mg/dL Appearance, CSF see below NA Color, CSF see below NA Glucose, CSF Collection Time: 01/03/21 4:16 PM Result Value Ref Range Glucose, CSF 65 40 - 70 mg/dL RADIOLOGY: MRA HEAD WO CONTRAST Result Date: 01/03/2021 [id number] Resonance Imaging ACCESSION EXAM DATE/TIME PROCEDURE ORDERING PROVIDER [id number] 01/02/2021 18:17 EST MRA Head w/o Contrast [id number] ISAACS CPT code 76765 Reason For Exam (MRA Head w/o Contrast) papilledema, headache, vertigo Report EXAMINATION: MRI BRAIN WITHOUT CONTRAST CLINICAL INDICATION: Severe papilledema on physical exam with visual disturbance. TECHNIQUE: Multi- planar multi-sequential MR imaging of thebrain was performed without intravenous contrast. MRA an MRV of the brain was performed utilizing 3-D [id number], without intravenous contrast. COMPARISON: None. FINDINGS: BRAIN: Prominence of the optic nerve sheaths bilaterally with flattening of the posterior sclera. Ventricles are normal in configuration. No cerebellar tonsillar ectopia. Solid is normal in appearance. Meckel's caves are not expanded. No acute infarction, intracranial hemorrhage or mass. Nonspecific focus of FLAIR hyperintensity in the right frontal centrum semiovale, possibly related to migraines or microangiopathic disease. No hydrocephalus. No extra-axial fluid collections. The skull base flow voids are present. The visualized intraorbital contents are normal. Scattered mucosal thickening in the paranasal sinuses. Trace left mastoid effusion. The visualized osseous structures, soft tissues and partially visualized parotid glands appear normal. MRA: Normal distal internal carotid arteries. The proximal anterior, middle and posterior cerebral arteries are patent bilaterally. Normal vertebrobasilar system. No evidence of vascular stenosis, occlusion, aneurysm or vascular malformation. Magnetic Resonance Imagi ng Report MRV: Dural Venous Sinuses: There is stenosis of bilateral lateral aspects of the transverse sinuses (series 7 image 24). Remaining dural venous sinuses are patent. Internal Cerebral Veins and Vein of Emre: Patent IMPRESSION: Imaging findings of papilledema with stenosis of the lateral aspects of bilateral transverse sinuses, suggestive of intracranial hypertension. No acute intracranial abnormality. MRA of the head is within normal limits. No dural venous sinus thrombosis. Report Dictated on --- Final --- Dictated: 01/03/2021 7:53 am Dictating Physician: MD JOEY, LUCÍA DELAROSA Signed Date and Time: 01/03/2021 8:09 am Signed by: MD JOEY, LUCÍA DELAROSA Transcribed Date and Time: 01/03/2021 7:53 US OB DETAIL ANATOMY SINGLE OR FIRST GESTATION Result Date: 01/02/2021 Patient Name: SHAHEED BOBO Maternal Medicine ACCESSION EXAM DATE/TIME PROCEDURE ORDERING PROVIDER [id number] 01/02/2021 10:16 [address] [facility] [place] [id number] -GONZALEZ, Complete w/detail PHYLLIS Reason For Exam ([facility] US Complete w/detail) CHTN Report OBSTETRICS REPORT (Signed Final 01/02/2021 10:17 am) Patient Info ID #: [id number] : [birth year] (20 yrs) Name: SHAHEED BOBO Visit Date: 01/02/2021 09:41 am Performed By Attending: Sheron Vargas MD Location: Inpatient- Hospital Performed By: Ke Godwin Visit Type: Inpatient - Hospital Referred By: PAOLA THORNTON Service(s) Provided US Level II complete (Targeted OB) 48323 Indications No care Vital Signs Weight (lb): 244 Height: 5'6 BMI: 39.38 Evaluation Num Of Fetuses: 1 Heart Rate(bpm): 132 Cardiac Activity: Regular rhythm Lie: Longitudinal Presentation: Breech Placenta: Posterior Amniotic Fluid NELSON FV: Clinically Appropriate Largest Pocket(cm) 3.6 Biometry -------- BPD: 49.2 mm G. Age: 20w 6d 11 % CI: 67.6 % 70 - 86 OFD: 72.8 mm FL/HC: 18.6 % 18.4 - 20.2 HC: 197.8 mm G. Age: 22w 0d 36 % HC/AC: 1.23 1.06 - 1.25 Maternal Medicine Report AC: 160.2 mm G. Age: 21w 1d 17 % FL/BPD: 74.8 % 71 - 87 FL: 36.8 mm G. Age: 21w 5d 30 % FL/AC: 23.0 % 20 - 24 CER: 24.8 mm G. Age: 22w 5d 87 % NFT: 3.23 mm LV: 5.5 mm CM: 3.55 mm Est. FW: 423 gm 0 lb 15 oz 31 % Gestational Age LMP: 22w 0d Date: 08/01/20 JUJU: 05/08/21 U/S Today: 21w 3d JUJU: 05/12/21 Best: 22w 0d Det. By: LMP (08/01/20) JUJU: 05/08/21 Targeted Anatomy Central Nervous System Calvarium/Cranial V.: Normal appearance Choroid Plexus: Normal appearance Intracranial Berenice: Normal appearance Cereb./Vermis: Normal appearance Cavum: Normal appearance Cisterna Magna: Normal appearance Parenchyma: Normal appearance Corpus Callosum: Normal appearance Lateral Ventricles: Normal appearance Midline Falx: Normal appearance Spine Cervical: Suboptimal views Sacral: Suboptimal views Thoracic: Suboptimal views Shape/Curvature: Suboptimal views Lumbar: Suboptimal views Head/Neck Face: Normal appearance Profile: Suboptimal views Lips: Normal appearance Orbits/Eyes: Normal appearance Nuchal Fold: Normal appearance Mandible: Suboptimal views Nasal Bone: Suboptimal views Maxilla: Suboptimal views Palate: Suboptimal views Thorax Thoracic Contour: Normal appearance Ductal Arch: Normal appearance Lungs: Normal appearance SVC: Suboptimal Views 4 Chamber View: Normal appearance Interventr. Septum: Suboptimal views Cardiac Activity: Normal Cardiac [place]: Normal appearance Cardiac Rhythm: Normal Diaphragm: Normal appearance Cardiac Situs: Normal appearance 3 Vessel View: Normal appearance Rt Outflow Tract: Normal appearance 3 V Trachea View: Suboptimal views Lt Outflow Tract: Normal appearance IVC: Suboptimal Aortic Arch: Suboptimal views Crossing: Suboptimal views Abdomen Vent ral Wall: Normal appearance Lt Kidney: Normal appearance Cord Insertion: Normal appearance Rt Kidney: Normal appearance Situs: Normal appearance Bladder: Normal appearance Stomach: Normal appearance Extremities Lt Humerus: Normal appearance Lt Femur: Normal appearance Rt Humerus: Normal appearance Rt Femur: Normal appearance Lt Forearm: Normal appearance Lt Lower Leg: Normal appearance Rt Forearm: Normal appearance Rt Lower Leg: Normal appearance Lt Hand: Normal appearance Lt Foot: Suboptimal views Rt Hand: Normal appearance Rt Foot: Suboptimal views Other Maternal Medicine Report Umbilical Cord: Normal 3- vessel Genitalia: Suboptimal views Comment: Suboptimal ankle views Impression 1. Greenberg live intrautine at 22w 0d. The fetus is in the breech presentation. 2. The anatomic survey is limited by lie, position and acoustic shadowing. Limitations as noted above. 3. biometry consistent with clinically established JUJU. 4. Posterior placenta. Recommendations Recommendations: 1. Consider follow-up sonogram in 2 weeks to complete anaotmic survey. 2. Follow-up per inpatin service. Ultrasound is not diagnostic of chromosomal aneuploidy and does not detect all subtle defects. Normal ultrasound findings do not guarantee normal outcomes. Sheron Vargas MD Electronically Signed Final Report 01/02/2021 10: 17 am --- Final --- Dictated: 01/02/2021 9:41 am Dictating Physician: Gretchen SEC WatchJenniferK Spine Signed Date and Time: 01/02/2021 10:18 am Signed by: Gretchen JeeranE_K Spine Ultrasound ACCESSION EXAM DATE/TIME PROCEDURE ORDERING PROVIDER [id number] 01/02/2021 10:16 EST [facility] [place] [facility] [id number] -CHERYLE, Complete w/detail PHYLLIS Reason For Exam (M US Completew/detail) [place] Report OBSTETRICS REPORT (Signed Final 01/02/2021 10:17 am) Patient Info ID #: [id number] : [birth year] (20 yrs) Name: SHAHEED BOBO Visit Date: 01/02/2021 09:41 am Performed By Attending: Sheron Vargas MD Location: Inpatient- Hospital Performed By: Ke Godwin Visit Type: Inpatient - Hospital Referred By: PAOLA THORNTON Service(s) Provided US Level II complete (Targeted OB) 18520 Ultrasound Report Indications No care Vital Signs Weight (lb): 244 Height: 5'6 BMI: 39.38 Evaluation ------- --------- Num Of Fetuses: 1 Heart Rate(bpm): 132 Cardiac Activity: Regular rhythm Lie: Longitudinal Presentation: Breech Placenta: Posterior Amniotic Fluid NELSON FV: Clinically Appropriate Largest Pocket(cm) 3.6 Biometry -------- BPD: 49.2 mm G. Age: 20w 6d 11 % CI: 67.6 % 70 - 86 OFD: 72.8 mm FL/HC: 18.6 % 18.4 - 20.2 HC: 197.8 mm G. Age: 22w 0d 36 % HC/AC: 1.23 1.06 - 1.25 AC: 160.2 mm G. Age: 21w 1d 17 % FL/BPD: 74.8 % 71 - 87 FL: 36.8 mm G. Age: 21w 5d 30 % FL/AC: 23.0 % 20 - 24 CER: 24.8 mm G. Age: 22w 5d 87 % NFT: 3.23 mm LV: 5.5 mm CM: 3.55 mm Est. FW: 423 gm 0 lb 15 oz 31 % Gestational Age LMP: 22w 0d Date: 08/01/20 JUJU: 05/08/21 U/S Today: 21w 3d JUJU: 05/12/21 Best: 22w 0d Det. By: LMP (08/01/20) JUJU: 05/08/21 Targeted Anatomy Central Nervous System Calvarium/Cranial V.: Normal appearance Choroid Plexus: Normal appearance Intracranial Berenice: Normal appearance Cereb./Vermis: Normal appearance Cavum: Normal appearance Cisterna Magna: Normal appearance Parenchyma: Normal appearance Corpus Callosum: Normal appearance Lateral Ventricles:Normal appearance Midline Falx: Normal appearance Spine Cervical: Suboptimal views Sacral: Suboptimal views Thoracic: Suboptimal views Shape/Curvature: Suboptimal views Lumbar: Suboptimal views Head/Neck Face: Normal appearance Profile: Suboptimal views Lips: Normal appearance Orbits/Eyes: Normal appearance Ultrasound Report Nuchal Fold: Normal appearance Mandible: Suboptimal views Nasal Bone: Suboptimal views Maxilla: Suboptimal views Palate: Suboptimal views Thorax Thoracic Contour: Normal appearance Ductal Arch: Normal appearance Lungs: Normal appearance SVC: Suboptimal Views 4 Chamber View: Normal appearance Interventr. Septum: Suboptimal views Cardiac Activity: Normal Cardiac [place]: Normal appearance Cardiac Rhythm: Normal Diaphragm: Normal appearance Cardiac Situs: Normal appearance 3 Vessel View: Normal appearance Rt Outflow Tract: Normal appearance 3 V Trachea View: Suboptimal views Lt Outflow Tract: Normal appearance IVC: Suboptimal Aortic Arch: Suboptimal views Crossing: Suboptimal views Abdomen Ventral Wall: Normal appearance Lt Kidney: Normal appearance Cord Insertion: Normal appearance Rt Kidney: Normal appearance Situs: Normal appearance Bladder: Normal appearance Stomach: Normal appearance Extremities Lt Humerus: Normal appearance Lt Femur: Normal appearance Rt Flag [place] linda: Normal appearance Rt Femur: Normal appearance Lt Forearm: Normal appearance Lt Lower Leg: Normal appearance Rt Forearm: Normal appearance Rt Lower Leg: Normal appearance Lt Hand: Normal appearance Lt Foot: Suboptimal views Rt Hand: Normal appearance Rt Foot: Suboptimal views Other Umbilical Cord: Normal 3- vessel Genitalia: Suboptimal views Comment: Suboptimal ankle views Impression 1. Greenberg live intrautine at 22w 0d. The fetus is in the breech presentation. 2. The anatomic survey is limited by lie, position and acoustic shadowing. Limitations asnoted above. 3. biometry consistent with clinically established JUJU. 4. Posterior placenta. Re commendations Recommendations: 1. Consider follow-up sonogram in 2 weeks to complete anaotmic survey. 2. Follow-up per inpatin service. Ultrasound is not diagnostic of chromosomal aneuploidy and does not detect all subtle defects. Normal ultrasound findings do not guarantee normal outcomes. Sheron Vargas MD Electronically Signed Final Report 01/02/2021 10:17 am --- Final --- Dictated: 01/02/2021 9:41 am Dictating Physician: Contributor_system, [email or web address] Signed Date and Time: 01/02/2021 10:18 am Signed by: Contributor_system, JeeranE_K Spine MRV HEAD W WO CONTRAST Result Date: 01/03/2021 Patient Name: SHAHEED BOBO [facility]#: [id number] Magnetic Resonance Imaging ACCESSION EXAM DATE/TIME PROCEDURE ORDERING PROVIDER [id number] 01/02/2021 18:17 EST MRV Head [id number] -NANCY GIBBS CPT code 06833 Reason For Exam (MRV Head) papilledema, headache, vertigo Report EXAMINA TION: MRI BRAIN WITHOUT CONTRAST CLINICAL INDICATION: Severe papilledema on physical exam with visual disturbance. TECHNIQUE: Multi-planar multi-sequential MR imaging of the brain was performed without intravenous contrast. MRA an MRV of the brain was performed utilizing 3-D [id number], withoutintravenous contrast. COMPARISON: None. FINDINGS: BRAIN: Prominence of the optic nerve sheaths bilaterally with flattening of the posterior sclera. Ventricles are normal in configuration. No cerebellar tonsillar ectopia. Solid is normal in appearance. Meckel's caves are not expanded. No acute infarction, intracranial hemorrhage or mass. Nonspecific focus of FLAIR hyperintensity in the right frontal centrum semiovale, possibly related to migraines or microangiopathic disease. No hydrocephalus. No extra-axial fluid collections. The skull base flow voids are present. The visualized intraorbital contents are normal. Scattered mucosal thickening in the paranasal sinuses. Trace left mastoid effusion. The visualized osseous structures, soft tissues and partially visualized parotid glands appear normal. MRA: Normal distal internal carotid arteries. The proximal anterior, middle and posterior cerebral arteries are patent bilaterally. Normal vertebrobasilar system. No evidence of vascular stenosis, occlusion, aneurysm or vascular malformation. Magnetic Resonance Imaging Report MRV: Dural Venous Sinuses: There is stenosis of bilateral lateral aspects of the transverse sinuses (series 7 image24). Remaining dural venous sinuses are patent. Internal Cerebral Veins and Vein of Emre: Patent IMPRESSION: Imaging findings of papilledema with stenosis of the lateral aspects of bilateral transverse sinuses, suggestive of intracranial hypertension. No acute intracranial abnormality. MRA of the head is within normal limits. No dural venous sinus thrombosis. Report Dictated on --- Final --- Dictated: 01/03/2021 7:53 am Dictating Physician: MD JOEY, LUCÍA DELAROSA Signed Date and Time: 01/03/2021 8:09 am Signed by: MD JOEY, LUCÍA DELAROSA Transcribed Date and Time: 01/03/2021 7:53 MRI BRAIN WO CONTRAST Result Date: 01/03/2021 [id number] Magnetic Resonance Imaging ACCESSION EXAM DATE/TIME PROCEDURE ORDERING PROVIDER [id number] 01/02/2021 18:17 EST MRI Brain w/o Contrast [id number] NANCY BARTH CPT code 15885 Reason For Exam (MRI Brain w/o Contrast) papilledema, vertigo, headache Report EXAMINATION: MRI BRAIN WITHOUT CONTRAST CLINICAL INDICATION: Severe papilledema on physical exam with visual disturbance. TECHNIQUE: Multi-planar multi-sequential MR imaging of the brain was performed without intravenous contrast. MRA an MRV of the brain was performed utilizing3-D [id number], without intravenous contrast. COMPARISON: None. FINDINGS: BRAIN: Prominence of the optic nerve sheaths bilaterally with flattening of the posterior sclera. Ventricles are normal in configuration. No cerebellar tonsillar ectopia. Solid is normal in appearance. Meckel's caves are not expanded. No acute infarction, intracranial hemorrhage or mass. Nonspecific focus of FLAIR hyperintensity in the right frontal centrum semiovale, possibly related to migraines or microangiopathic disease. No hydrocephalus. No extra- axial fluid collections. The skull base flow voids are present. The visualized intraorbital contents are normal. Scattered mucosal thickening in the paranasal sinuses. Trace left mastoid effusion. The visualized osseous structures, soft tissues and partially visualized parotid glands appear normal. MRA: Normal distal internal carotid arteries. The proximal anterior, middle and posterior cerebral arteries are patent bilaterally. Normal vertebrobasilar system. No evidence of vascular stenosis, occlusion, aneurysm or vascular malformation. Magnetic Resonance Imaging Report MRV: Dural Venous Sinuses: There is stenosis of bilateral lateral aspects of the transverse sinuses (series 7 image 24). Remaining dural venous sinuses are patent. Internal Cerebral Veinsand Vein of Emre: Patent IMPRESSION: Imaging findings of papilledema with stenosis of the lateral aspects of bilateral transverse sinuses, suggestive of intracranial hypertension. No acute intracranial abnormality. MRA of the head is within normal limits. No dural venous sinus thrombosis. Report Dictated on --- Final --- Dictated: 01/03/2021 7:53 am Dictating Physi chapincito: MD JOEY, LUCÍA DELAROSA Signed Date and Time: 01/03/2021 8:09 am Signed by: MD JOEY, MAURY Transcribed Date and Time: 01/03/2021 7:53 Neuroimaging and labs personally reviewed Assessment/Plan: 1. Papilledema in the setting of dizziness/tinnitus, headache, - Patient initially hypertensive at OSH with systolic pressure 170+, has since been normotensive without administration of antihypertensive medication - CT head obtained at OSH negative for acute findings - MRI/A/V head obtained, showed papilledema with stenosis of the lateral aspects of the transverse sinuses, suggestive of intracranial hypertension with no acute intracranial abnormality - LP performed 01/03/2021: opening pressure recorded at 53 cm H2O, 32 cc fluid removed, closing pressure recorded as 15 cm H2O - Will start pt on Diamox today with a one time dose of 500 mg, 500 mg bid starting 01/05 2. HTN - BP normotensive since admission - OBGYN monitoring for preeclampsia/eclampsia - magnesium sulfate ordered for seizure prophylaxis - see above for further recommendations 3. IUP, 21wk6d - OBGYN managing Associated attestation - Nicolette Kelley MD - 01/04/2021 11:16 AM EST I have seen, examined and evaluated the patient with the resident physician or nurse practitioner under my direct supervision. I have reviewed the resident physician's or nurse practitioner's note and agree with the assessment and plan of care as documented with this addendum. LP done yesterday-elevated OP (53) s/p high volume tap. Headache and blurry vision are about the same today. Exam unchanged. Data: CSF 01/03/21 W1/R0/ OCB's pending MRI Brain, MRA head, MRV head w/o contrast 01/02/21 Imaging findings of papilledema with stenosis of the lateral aspects of bilateral transverse sinuses, suggestive of intracranial hypertension. No acute intracranial abnormality. MRA of the head is within normal limits. No dural venous sinus thrombosis. Assessment and Plan: 20 yo female currently 22 weeks who presents with MORRIS, blurry vision, and concern for papilledema. MORRIS/vision changes -Fundoscopic exam concerning for chronic papilledema -MRI/A/V without acute intracranial or vascular abn -LP with significantly elevated OP s/p large volume tap -Will start diamox-500mg today and 500mg BID from tomorrow (per OB, ok to use during ) -Patient will need continued outpatient neurology follow up for MORRIS management -She should also follow up with ophthalmology for continued monitoring of papilledema -Will defer pre-eclampsia management to OB * Shane Trivedi DO - 01/04/2021 6:13 AM EST Images from the original note were not included. Maternal Medicine Service Resident Progress Note 01/04/2021 6:13 AM 01/01/2021 Hospital Day: 4 Shaheed Bobo, 20 y.o. 22w3d Patient has been seen and examined. Pt complains of continued blurry vision denies Headache. Positive movement Negative vaginal bleeding Negative LOF Negative Contractions Vitals: 01/03/21 1625 01/03/21 2000 01/04/21 0025 01/04/21 0539 BP: 120/71 121/72 (!) 96/52 (!) 107/52 Pulse: 91 94 (!) 111 95 Resp: 18 Temp: 98.4 F (36.9 C) 98.4 F (36.9 C) 98.7 F (37.1 C) 98.5 F (36.9 C) TempSrc: Temporal Temporal Temporal Temporal SpO2: 97% 98% 95% 97% Weight: Height: FHT: 140 Physical Exam: Gen: NAD HEENT: Normocephalic, Atraumatic, EOMI, MMM Resp: CTABL, no WRR Card: RRR S1S2 Abd: soft, gravid, NTND, no rebound, no guarding. negative fundal tenderness Ext: No LE edema, no calf tenderness or swelling Medications: Current Facility-Administered Medications Medication Dose Route Frequency Provider Last Rate Last Admin diphenhydrAMINE (BENADRYL) tablet 25 mg 25 mg Oral Q6H PRN Paola Thornton MD 25 mg at 01/03/21 0115 sodium chloride flush 0.9 % injection 10 mL 10 mL IntraVENous 2 times per day Paola Thornton MD 10 mL at 01/03/212055 sodium chloride flush 0.9 % injection 10 mL 10 mL IntraVENous PRN Paola Thornton MD 0.9 % sodium chloride infusion 25 mL IntraVENous PRN Paola Thornton MD ondansetron (ZOFRAN-ODT) disintegrating tablet 4 mg 4 mg Oral Q8H PRN Paola Thornton MD 4 mg at 01/02/21 182 Or ondansetron (ZOFRAN) injection 4 mg 4 mg IntraVENous Q6H PRN Paola Thornton MD acetaminophen (TYLENOL) tablet 650 mg 650 mg Oral Q4H PRN Paola Thornton MD 650 mg at 01/03/21 1620 Or acetaminophen (TYLENOL) suppository 650 mg 650 mg Rectal Q4H PRN Paola Thornton MD vitamin 27-1 MG tablet 1 tablet 1 tablet Oral Daily Paola Thornton MD 1 tablet at 01/03/21 1229 docusate sodium (COLACE) capsule 100 mg 100 mg Oral BID PRN Paola Thornton MD 100 mg at 01/04/21 0538 Assessment/Plan: Shaheed Bobo is a 20 y.o. female 22w3d Papilledema - MRI/A/V showed Papilledema with stenosis of lateral aspects of bilat transverse sinuses, suggestive of intracranial HTN. - LP opening pressure 53 cm H20, confirming intracranial hypertension - Neurology consulted appreciated recommendations - denies MORRIS today HTN - BP continue to be normotensive - 24 hour Urine pending No PNC - Social work following IUP @ 22w3d - Dating by 21w5d US consistent with LMP - Breech on 01/02 - Monitoring:FHT daily - Diet:General - BMZ deferred Further plan pending d/w attending. Shane Trivedi DO 01/04/2021, 6:13 AM Associated attestation - Sheron Vargas MD - 01/04/2021 1:17 PM EST MFM ATTESTATION The chart was reviewed. The patient was seen and evaluated with residents. I independently evaluated the patient. Agree with findings and plans as documented. Other than a slight headache at the time of patient evaluation this morning, patient reports no other complaints. The patient reports her vision remains unchanged. The working diagnosis at this time is idiopathic intracranial hypertension. Neurology will formulate a plan of management. I have explained to the patient that any medications that neurology wishes to order are acceptable.It is important that her vision does not continue to deteriorate if possible. Additionally, I have made it very clear to the patient that it is imperative that she follow-up with neurology during the and following the . IIH is a chronic long-term medical condition that will require continued management. The patient verbalized understanding this portion of the discussion. As stated previously, preeclampsia is not suspected at this time. The patient's blood pressures have remained well within normal limits. The fetus and patient are stable for continued expectant management. Precautions and warning reviewed with the patient. Sheron Vargas MD, YANIRA Maternal Medicine Time Statement: A total of 15 minutes was take to complete this encounter of which greater than 50 percent was in face to face consultation and coordination of care. imv * Crystal Najera DTR - 01/03/2021 11:45 AM EST Nutrition rescreen completed. Patient referred to the Dietitian. * Nancy Gibbs MD - 01/03/2021 10:31 AM EST General Neurology Follow-up Date of Service: 01/03/2021 Chief complaint: Papilledema Subjective: Pt seen in follow up for papilledema. MRI/A/V obtained and showed stenosis of the lateral aspects of the transverse sinuses, suggestive of intracranial hypertension. Today the pt complains of unchanged blurry vision with diplopia bilaterally. Does complain of a headache overnight starting at the top of her head and radiating towards the base of the neck. This has since resolved with mild ongoing neck pain. Otherwise no changes in vision or symptom profile from initial day of consult. Denies nausea, vomiting, diarrhea, constipation, cough, chest pain, SOB. Pt informed of plan and denied additional concern Medications: Scheduled Meds: sodium chloride flush 10 mL IntraVENous 2 times per day vitamin 1 tablet Oral Daily Continuous Infusions: sodium chloride PRN Meds:diphenhydrAMINE, sodium chloride flush, sodium chloride, ondansetron OR ondansetron, acetaminophen OR acetaminophen, docusate sodium No Known Allergies Objective: Exam: BP 112/65 Pulse 92 Temp 97.8 F (36.6 C) (Oral) Resp 16 Ht 5' 6 (1.676 m) Wt (!) 244 lb 11.4 oz (111 kg) SpO2 96% BMI 39.50 kg/m Constitutional: well-nourished. Head: Size/Trauma: normocephalic Neck: supple Heart: RRR, S1S2 Resp: Normal BS GI: soft, nontender Ext: Normal Neuro: General: awake and alert Cranial nerves: I: smell Not tested II: visual jones Full to confrontation II: pupils Equal, round, reactive to light III,VII: ptosis None III,IV,: extraocular muscles Full ROM V: mastication Normal V: facial light touch sensation Normal V,VII: corneal reflex Present VII: facial muscle function - upper Normal VII: facial muscle function - lower Normal VIII: hearing Normal IX: soft palate elevation Normal IX,X: gag reflex Present XI: trapezius strength 5/5 XI: sternocleidomastoid strength 5/5 XI: neck flexion strength 5/5 XII: tongue strength Normal Motor exam: normal strength, muscle mass, and tone in all extremities Sensation was normal to joint position sense, light touch, a pin prick, proprioception, temperatureand vibration Deep tendon reflexes were 2+ bilaterally Plantar responses were flexor bilaterally Cerebellar exam noted no tremors noted Gait: Appropriate Data: LABS: No results found for this or any previous visit (from the past 24 hour(s)). RADIOLOGY: MRA HEAD WO CONTRAST Result Date: 01/03/2021 Patient Name: SHAHEED BOBO Magnetic Resonance Imaging ACCESSION EXAM DATE/TIME PROCEDURE ORDERING PROVIDER [id number] 01/02/2021 18:17 EST MRA Head w/o Contrast [id number] ISAACS CPT code 10058 Reason For Exam (MRA Head w/o Contrast) papilledema, headache, vertigo Report EXAMINATION: MRI BRAIN WITHOUT CONTRAST CLINICAL INDICATION: Severe papilledema on physical exam with visual disturbance. TECHNIQUE: Multi- planar multi-sequential MR imaging of thebrain was performed without intravenous contrast. MRA an MRV of the brain was performed utilizing 3-D [id number], without intravenous contrast. COMPARISON: None. FINDINGS: BRAIN: Prominence of the optic nerve sheaths bilaterally with flattening of the posterior sclera. Ventricles are normal in configuration. No cerebellar tonsillar ectopia. Solid is normal in appearance. Meckel's caves are not expanded. No acute infarction, intracranial hemorrhage or mass. Nonspecific focus of FLAIR hyperintensity in the right frontal centrum semiovale, possibly related to migraines or microangiopathic disease. No hydrocephalus. No extra-axial fluid collections. The skull base flow voids are present. The visualized intraorbital contents are normal. Scattered mucosal thickening in the paranasal sinuses. Trace left mastoid effusion. The visualized osseous structures, soft tissues and partially visualized parotid glands appear normal. MRA: Normal distal internal carotid arteries. The proximal anterior, middle and posterior cerebral arteries are patent bilaterally. Normal vertebrobasilar system. No evidence of vascular stenosis, occlusion, aneurysm or vascular malformation. Magnetic Resonance Imagi ng Report MRV: Dural Venous Sinuses: There is stenosis of bilateral lateral aspects of the transverse sinuses (series 7 image 24). Remaining dural venous sinuses are patent. Internal Cerebral Veins and Vein of Emre: Patent IMPRESSION: Imaging findings of papilledema with stenosis of the lateral aspects of bilateral transverse sinuses, suggestive of intracranial hypertension. No acute intracranial abnormality. MRA of the head is within normal limits. No dural venous sinus thrombosis. Report Dictated on --- Final --- Dictated: 01/03/2021 7:53 am Dictating Physician: MD JOEY, LUCÍA DELAROSA Signed Date and Time: 01/03/2021 8:09 am Signed by: MD HUGHES WASSIM OSAMA Transcribed Date and Time: 01/03/2021 7:53 US OB DETAIL ANATOMY SINGLE OR FIRST GESTATION Result Date: 01/02/2021 Patient Name: SHAHEED BOBO Maternal Medicine ACCESSION EXAM DATE/TIME PROCEDURE ORDERING PROVIDER [id number] 01/02/2021 10:16 EST [facility] [place] [id number] -CHERYLE, Complete w/detail PHYLLIS Reason For Exam ([facility] US Complete w/detail) CHTN Report OBSTETRICS REPORT (Signed Final 01/02/2021 10:17 am) Patient Info ID #: [id number] : [birth year] (20 yrs) Name: SHAHEED BOBO Visit Date: 01/02/2021 09:41 am Performed By Attending: Sheron Vargas MD Location: Inpatient- Hospital Performed By: Ke Godwin Visit Type: Inpatient - Hospital Referred By: PAOLA THORNTON Service(s) Provided US Level II complete (Targeted OB) 87705 Indications No care Vital Signs Weight (lb): 244 Height: 5'6 BMI: 39.38 Evaluation Num Of Fetuses: 1 Heart Rate(bpm): 132 Cardiac Activity: Regular rhythm Lie: Longitudinal Presentation: Breech Placenta: Posterior Amniotic Fluid NELSON FV: Clinically Appropriate Largest Pocket(cm) 3.6 Biometry -------- BPD: 49.2 mm G. Age: 20w 6d 11 % CI: 67.6 % 70 - 86 OFD: 72.8 mm FL/HC: 18.6 % 18.4 - 20.2 HC: 197.8 mm G. Age: 22w 0d 36 % HC/AC: 1.23 1.06 - 1.25 Maternal Medicine Report AC: 160.2 mm G. Age: 21w 1d 17 % FL/BPD: 74.8 % 71 - 87 FL: 36.8 mm G. Age: 21w 5d 30 % FL/AC: 23.0 % 20 - 24 CER: 24.8 mm G. Age: 22w 5d 87 % NFT: 3.23 mm LV: 5.5 mm CM: 3.55 mm Est. FW: 423 gm 0 lb 15 oz 31 % Gestational Age LMP: 22w 0d Date: 08/01/20 JUJU: 05/08/21 U/S Today: 21w 3d JUJU: 05/12/21 Best: 22w 0d Det. By: LMP (08/01/20) JUJU: 05/08/21 Targeted Anatomy Central Nervous System Calvarium/Cranial V.: Normal appearance Choroid Plexus: Normal appearance Intracranial Berenice: Normal appearance Cereb./Vermis: Normal appearance Cavum: Normal appearance Cisterna Magna: Normal appearance Parenchyma: Normal appearance Corpus Callosum: Normal appearance Lateral Ventricles: Normal appearance Midline Falx: Normal appearance Spine Cervical: Suboptimal views Sacral: Suboptimal views Thoracic: Suboptimal views Shape/Curvature: Suboptimal views Lumbar: Suboptimal views Head/Neck Face: Normal appearance Profile: Suboptimal views Lips: Normal appearance Orbits/Eyes: Normal appearance Nuchal Fold: Normal appearance Mandible: Suboptimal views Nasal Bone: Suboptimal views Maxilla: Suboptimal views Palate: Suboptimal views Thorax Thoracic Contour: Normal appearance Ductal Arch: Normal appearance Lungs: Normal appearance SVC: Suboptimal Views 4 Chamber View: Normal appearance Interventr. Septum: Suboptimal views Cardiac Activity: Normal Cardiac [place]: Normal appearance Cardiac Rhythm: Normal Diaphragm: Normal appearance Cardiac Situs: Normal appearance 3 Vessel View: Normal appearance Rt Outflow Tract: Normal appearance 3 V Trachea View: Suboptimal views Lt Outflow Tract: Normal appearance IVC: Suboptimal Aortic Arch: Suboptimal views Crossing: Suboptimal views Abdomen Vent ral Wall: Normal appearance Lt Kidney: Normal appearance Cord Insertion: Normal appearance Rt Kidney: Normal appearance Situs: Normal appearance Bladder: Normal appearance Stomach: Normal appearance Extremities Lt Humerus: Normal appearance Lt Femur: Normal appearance Rt Humerus: Normal appearance Rt Femur: Normal appearance Lt Forearm: Normal appearance Lt Lower Leg: Normal appearance Rt Forearm: Normal appearance Rt Lower Leg: Normal appearance Lt Hand: Normal appearance Lt Foot: Suboptimal views Rt Hand: Normal appearance Rt Foot: Suboptimal views Other Maternal Medicine Report Umbilical Cord: Normal 3- vessel Genitalia: Suboptimal views Comment: Suboptimal ankle views Impression 1. Greenberg live intrautine at 22w 0d. The fetus is in the breech presentation. 2. The anatomic survey is limited by lie, position and acoustic shadowing. Limitations as noted above. 3. biometry consistent with clinically established JUJU. 4. Posterior placenta. Recommendations Recommendations: 1. Consider follow-up sonogram in 2 weeks to complete anaotmic survey. 2. Follow-up per inpatin service. Ultrasound is not diagnostic of chromosomal aneuploidy and does not detect all subtle defects. Normal ultrasound findings do not guarantee normal outcomes. Sheron Vargas MD Electronically Signed Final Report 01/02/2021 10: 17 am --- Final --- Dictated: 01/02/2021 9:41 am Dictating Physician: Gretchen [facility]eranKamiK [facility] Signed Date and Time: 01/02/2021 10:18 am Signed by: Gretchen [employer] Ultrasound ACCESSION EXAM DATE/TIME PROCEDURE ORDERING PROVIDER [id number] 01/02/2021 10:16 EST [facility] [id number] -CHERYLE, Complete w/detail PHYLLIS Reason For Exam (MFM US Completew/detail) [place] Report OBSTETRICS REPORT (Signed Final 01/02/2021 10:17 am) Patient Info ID #: [id number] : [birth year] (20 yrs) Name: SHAHEED BOBO Visit Date: 01/02/2021 09:41 am Performed By Attending: Sheron Vargas MD Location: Inpatient- Hospital Performed By: Ke Godwin Visit Type: Inpatient - Hospital Referred By: PAOLA THORNTON Service(s) Provided US Level II complete (Targeted OB) 78225 Ultrasound Report Indications No care Vital Signs Weight (lb): 244 Height: 5'6 BMI: 39.38 Evaluation ------- --------- Num Of Fetuses: 1 Heart Rate(bpm): 132 Cardiac Activity: Regular rhythm Lie: Longitudinal Presentation: Breech Placenta: Posterior Amniotic Fluid NELSON FV: Clinically Appropriate Largest Pocket(cm) 3.6 Biometry -------- BPD: 49.2 mm G. Age: 20w 6d 11 % CI: 67.6 % 70 - 86 OFD: 72.8 mm FL/HC: 18.6 % 18.4 - 20.2 HC: 197.8 mm G. Age: 22w 0d 36 % HC/AC: 1.23 1.06 - 1.25 AC: 160.2 mm G. Age: 21w 1d 17 % FL/BPD: 74.8 % 71 - 87 FL: 36.8 mm G. Age: 21w 5d 30 % FL/AC: 23.0 % 20 - 24 CER: 24.8 mm G. Age: 22w 5d 87 % NFT: 3.23 mm LV: 5.5 mm CM: 3.55 mm Est. FW: 423 gm 0 lb 15 oz 31 % Gestational Age LMP: 22w 0d Date: 08/01/20 JUJU: 05/08/21 U/S Today: 21w 3d JUJU: 05/12/21 Best: 22w 0d Det. By: LMP (08/01/20) JUJU: 05/08/21 Targeted Anatomy Central Nervous System Calvarium/Cranial V.: Normal appearance Choroid Plexus: Normal appearance Intracranial Berenice: Normal appearance Cereb./Vermis: Normal appearance Cavum: Normal appearance Cisterna Magna: Normal appearance Parenchyma: Normal appearance Corpus Callosum: Normal appearance Lateral Ventricles:Normal appearance Midline Falx: Normal appearance Spine Cervical: Suboptimal views Sacral: Suboptimal views Thoracic: Suboptimal views Shape/Curvature: Suboptimal views Lumbar: Suboptimal views Head/Neck Face: Normal appearance Profile: Suboptimal views Lips: Normal appearance Orbits/Eyes: Normal appearance Ultrasound Report Nuchal Fold: Normal appearance Mandible: Suboptimal views Nasal Bone: Suboptimal views Maxilla: Suboptimal views Palate: Suboptimal views Thorax Thoracic Contour: Normal appearance Ductal Arch: Normal appearance Lungs: Normal appearance SVC: Suboptimal Views 4 Chamber View: Normal appearance Interventr. Septum: Suboptimal views Cardiac Activity: Normal Cardiac [place]: Normal appearance Cardiac Rhythm: Normal Diaphragm: Normal appearance Cardiac Situs: Normal appearance 3 Vessel View: Normal appearance Rt Outflow Tract: Normal appearance 3 V Trachea View: Suboptimal views Lt Outflow Tract: Normal appearance IVC: Suboptimal Aortic Arch: Suboptimal views Crossing: Suboptimal views Abdomen Ventral Wall: Normal appearance Lt Kidney: Normal appearance Cord Insertion: Normal appearance Rt Kidney: Normal appearance Situs: Normal appearance Bladder: Normal appearance Stomach: Normal appearance Extremities Lt Humerus: Normal appearance Lt Femur: Normal appearance Rt Rubin linda: Normal appearance Rt Femur: Normal appearance Lt Forearm: Normal appearance Lt Lower Leg: Normal appearance Rt Forearm: Normal appearance Rt Lower Leg: Normal appearance Lt Hand: Normal appearance Lt Foot: Suboptimal views Rt Hand: Normal appearance Rt Foot: Suboptimal views Other Umbilical Cord: Normal 3- vessel Genitalia: Suboptimal views Comment: Suboptimal ankle views Impression 1. Greenberg live intrautine at 22w 0d. The fetus is in the breech presentation. 2. The anatomic survey is limited by lie, position and acoustic shadowing. Limitations asnoted above. 3. biometry consistent with clinically established JUJU. 4. Posterior placenta. Re commendations Recommendations: 1. Consider follow-up sonogram in 2 weeks to complete anaotmic survey. 2. Follow-up per inpatin service. Ultrasound is not diagnostic of chromosomal aneuploidy and does not detect all subtle defects. Normal ultrasound findings do not guarantee normal outcomes. Sheron Vargas MD Electronically Signed Final Report 01/02/2021 10:17 am --- Final --- Dictated: 01/02/2021 9:41 am Dictating Physician: Gretchen SEC WatchJenniferK Spine Signed Date and Time: 01/02/2021 10:18 am Signed by: Gretchen SEC Watch_K Spine MRV HEAD W WO CONTRAST Result Date: 01/03/2021 Patient Name: SHAHEED BOBO [facility] ACCESSION EXAM DATE/TIME PROCEDURE ORDERING PROVIDER [id number] 01/02/2021 18:17 EST MRV Head [id number] NANCY BARTH CPT code 28784 Reason For Exam (MRV Head) papilledema, headache, vertigo Report EXAMINA TION: MRI BRAIN WITHOUT CONTRAST CLINICAL INDICATION: Severe papilledema on physical exam with visual disturbance. TECHNIQUE: Multi-planar multi-sequential MR imaging of the brain was performed without intravenous contrast. MRA an MRV of the brain was performed utilizing 3-D [id number], withoutintravenous contrast. COMPARISON: None. FINDINGS: BRAIN: Prominence of the optic nerve sheaths bilaterally with flattening of the posterior sclera. Ventricles are normal in configuration. No cerebellar tonsillar ectopia. Solid is normal in appearance. Meckel's caves are not expanded. No acute infarction, intracranial hemorrhage or mass. Nonspecific focus of FLAIR hyperintensity in the right frontal centrum semiovale, possibly related to migraines or microangiopathic disease. No hydrocephalus. No extra-axial fluid collections. The skull base flow voids are present. The visualized intraorbital contents are normal. Scattered mucosal thickening in the paranasal sinuses. Trace left mastoid effusion. The visualized osseous structures, soft tissues and partially visualized parotid glands appear normal. MRA: Normal distal internal carotid arteries. The proximal anterior, middle and posterior cerebral arteries are patent bilaterally. Normal vertebrobasilar system. No evidence of vascular stenosis, occlusion, aneurysm or vascular malformation. Magnetic Resonance Imaging Report MRV: Dural Venous Sinuses: There is stenosis of bilateral lateral aspects of the transverse sinuses (series 7 image24). Remaining dural venous sinuses are patent. Internal Cerebral Veins and Vein of Emre: Patent IMPRESSION: Imaging findings of papilledema with stenosis of the lateral aspects of bilateral transverse sinuses, suggestive of intracranial hypertension. No acute intracranial abnormality. MRA of the head is within normal limits. No dural venous sinus thrombosis. Report Dictated on --- Final --- Dictated: 01/03/2021 7:53 am Dictating Physician: MD JOEY, LUCÍA DELAROSA Signed Date and Time: 01/03/2021 8:09 am Signed by: MD JOEY, LUCÍA DELAROSA Transcribed Date and Time: 01/03/2021 7:53 MRI BRAIN WO CONTRAST Result Date: 01/03/2021 [id number] ACCESSION EXAM DATE/TIME PROCEDURE ORDERING PROVIDER [id number] 01/02/2021 18:17 EST MRI Brain w/o Contrast [id number] ISAACS CPT code 64406 Reason For Exam (MRI Brain w/o Contrast) papilledema, vertigo, headache Report EXAMINATION: MRI BRAIN WITHOUT CONTRAST CLINICAL INDICATION: Severe papilledema on physical exam with visual disturbance. TECHNIQUE: Multi-planar multi-sequential MR imaging of the brain was performed without intravenous contrast. MRA an MRV of the brain was performed utilizing3-D [id number], without intravenous contrast. COMPARISON: None. FINDINGS: BRAIN: Prominence of the optic nerve sheaths bilaterally with flattening of the posterior sclera. Ventricles are normal in configuration. No cerebellar tonsillar ectopia. Solid is normal in appearance. Meckel's caves are not expanded. No acute infarction, intracranial hemorrhage or mass. Nonspecific focus of FLAIR hyperintensity in the right frontal centrum semiovale, possibly related to migraines or microangiopathic disease. No hydrocephalus. No extra- axial fluid collections. The skull base flow voids are present. The visualized intraorbital contents are normal. Scattered mucosal thickening in the paranasal sinuses. Trace left mastoid effusion. The visualized osseous structures, soft tissues and partially visualized parotid glands appear normal. MRA: Normal distal internal carotid arteries. The proximal anterior, middle and posterior cerebral arteries are patent bilaterally. Normal vertebrobasilar system. No evidence of vascular stenosis, occlusion, aneurysm or vascular malformation. Magnetic Resonance Imaging Report MRV: Dural Venous Sinuses: There is stenosis of bilateral lateral aspects of the transverse sinuses (series 7 image 24). Remaining dural venous sinuses are patent. Internal Cerebral Veinsand Vein of Emre: Patent IMPRESSION: Imaging findings of papilledema with stenosis of the lateral aspects of bilateral transverse sinuses, suggestive of intracranial hypertension. No acute intracranial abnormality. MRA of the head is within normal limits. No dural venous sinus thrombosis. Report Dictated on --- Final --- Dictated: 01/03/2021 7:53 am Dictating Physi chapincito: MD JOEY, LUCÍA DELAROSA Signed Date and Time: 01/03/2021 8:09 am Signed by: MD HUGHES WASSIMOSAMA Transcribed Date and Time: 01/03/2021 7:53 Neuroimaging and labs personally reviewed Assessment/Plan: 1. Papilledema in the setting of dizziness/tinnitus, headache, - Patient initially hypertensive at OSH with systolic pressure 170+, has since been normotensive without administration of antihypertensive medication - CT head obtained at OSH allegedly negative for acute findings, will attempt to obtain record. - Ophthalmology consulted, per their assessment, likely IIH as optic neuritis would show greater visual loss in both eyes with more severe pupillary dysfunction - MRI/A/V head obtained, showed papilledema with stenosis of the lateral aspects of the transverse sinuses, suggestive of intracranial hypertension with no acute intracranial abnormality - At this time, will order IR fluoroscopy guided LP. Discussed with obgyn resident due to possibility of radiation exposure to fetus, if pt declines can proceed with bedside LP in the absence of fluoroscopy - Will plan to start pt on Diamox prior to d/c 2. HTN - BP normotensive since admission - OBGYN assessing for preeclampsia/eclampsia - magnesium sulfate ordered for seizure prophylaxis - see above for further recommendations 3. IUP, 21wk6d - OBGYN managing Associated attestation - Nicolette Kelley MD - 01/03/2021 2:45 PM EST I have seen, examined and evaluated the patient with the resident physician or nurse practitioner under my direct supervision. I have reviewed the resident physician's or nurse practitioner's note and agree with the assessment and plan of care as documented with this addendum. No acute overnight events. MORRIS somewhat improved, vision is about the same. Exam unchanged. MRI Brain, MRA head, MRV head w/o contrast 01/02/21 Imaging findings of papilledema with stenosis of the lateral aspects of bilateral transverse sinuses, suggestive of intracranial hypertension. No acute intracranial abnormality. MRA of the head is within normal limits. No dural venous sinus thrombosis. Assessment and Plan: 20 yo female currently 22 weeks who presents with MORRIS, blurry vision, and concern for papilledema. MORRIS/vision changes -Fundoscopic exam concerning for chronic papilledema -MRI/A/V without acute intracranial or vascular abn -Will proceed with LP for opening pressure, routine cell counts, OCB's. If pressure is elevated, would do a larger volume tap and measure closing pressure as well. 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 Maternal Medicine Service Resident Progress Note 01/03/2021 6:01 AM 01/01/2021 Hospital Day: 3 Shaheed Bobo, 20 y.o. 22w2d Patient has been seen and examined. Pt complains of change in MORRIS overnight, reporting it starts at the top of her skull and radiates down neck, however this AM it has resolved. Denies worsening in vision, fever, chills, CP, SOB, or abd pain. Positive movement Negative vaginal bleeding Negative LOF Negative Contractions Vitals: 01/02/21 1557 01/02/21 2043 01/03/21 0014 01/03/21 0542 BP: 106/66 (!) 106/54 105/61 (!) 98/58 Pulse: 87 78 99 91 Resp: 18 16 20 Temp: 99.2 F (37.3 C) 97.7 F (36.5 C) 98.7 F (37.1 C) 98.8 F (37.1 C) TempSrc: Temporal Temporal Temporal Oral SpO2: 97% 99% 98% 96% Weight: Height: FHT: 150bpm by doptone Contractions: none Physical Exam: Gen: NAD HEENT: Normocephalic, Atraumatic, EOMI, MMM Resp: CTABL, no WRR Card: RRR S1S2 Abd: soft, gravid, NTND, no rebound, no guarding. negative fundal tenderness Ext: No LE edema, no calf tenderness or swelling Medications: Current Facility-Administered Medications Medication Dose Route Frequency Provider Last Rate Last Admin diphenhydrAMINE (BENADRYL) tablet 25 mg 25 mg Oral Q6H PRN Paola Thornton MD 25 mg at 11/17/21 011 sodium chloride flush 0.9 % injection 10 mL 10 mL IntraVENous 2 times per day Paola Thornton MD 10 mL at 01/02/212033 sodium chloride flush 0.9 % injection 10 mL 10 mL IntraVENous PRN Paola Thornton MD 0.9 % sodium chloride infusion 25 mL IntraVENous PRN Paola Thornton MD ondansetron (ZOFRAN-ODT) disintegrating tablet 4 mg 4 mg Oral Q8H PRN Paola Thornton MD 4 mg at 01/02/211822 Or ondansetron (ZOFRAN) injection 4 mg 4 mg IntraVENous Q6H PRN Paola Thornton MD acetaminophen (TYLENOL) tablet 650 mg 650 mg Oral Q4H PRN Paola Thornton MD 650 mg at 01/03/21 0015 Or acetaminophen (TYLENOL) suppository 650 mg 650 mg Rectal Q4H PRN Paola Thornton MD vitamin 27-1 MG tablet 1 tablet 1 tablet Oral Daily Paola Thornton MD 1 tablet at 01/02/21 1103 docusate sodium (COLACE) capsule 100 mg 100 mg Oral BID PRN Paola Thornton MD Assessment/Plan: Shaheed Bobo is a 20 y.o. female 22w2d HTN -BP remains normotensive not on meds -Mild MORRIS overnight resolved with reglan/benadryl -PreE labs negative on admission, however UPC elevated at 0.57 -Growth US shows no signs of FGR, EFW 31%ile Papilledema -S/p ophthalmology consult, noted severe papilledema with loss of left central vision -Neurology consulted, actively following -Pt has MRI/A/V overnight, awaiting official radiology read -Per neuro recs, will likely undergo LP today with opening pressures due to significant concern forIIH with possible tx with Diamox -Appreciate continued neuro recs No PNC - labs WNL, HIV still pending -Social work consult pending -Growth US shows EFW 423g (31%ile) with dating consistent with LMP, will need repeat US in 2 weeks for non visualized anatomy IUP @ 22w2d - Dating by 21w5d US consistent with LMP - Breech on 01/02 - Monitoring:FHT daily - Diet:General - BMZ deferred Further plan pending d/w attending. Moon SeguraDO 01/03/2021, 6:01 AM Associated attestation - Sheron Vargas MD - 01/03/2021 9:36 AM EST MFM ATTESTATION The chart was reviewed. The patient was seen and evaluated with residents. I independently evaluated the patient. Agree with findings and plans as documented. The patient reports no changes in vision. The patient reports her headache has resolved. Await neurology and ophthalmology recommendations. At this time, the prevailing thought is that theophthalmologic changes have been present for some time. At this time, early onset preeclampsia is not suspected. Well complete a 24-hour urine for protein and creatinine clearance to evaluate patient's kidney function. A nephrology consultation may become indicated. The fetus and patient are stable for continued expectant management. Precautions and warning reviewed with the patient. Sheron Vargas MD, YANIRA Maternal Medicine Time Statement: A total of 15 minutes was take to complete this encounter of which greater than 50 percent was in face to face consultation and coordination of care. imv * Shane Trivedi DO - 01/02/2021 6:13 AM EST Images from the original note were not included. Maternal Medicine Service Resident Progress Note 01/02/2021 6:13 AM 01/01/2021 Hospital Day: 2 Shaheed Bobo, 20 y.o. 21wk6d Patient has been seen and examined. Pt continues to complain of double vision and blurring of vision. Headache has improved, denies RUQ pain Positive movement Negative vaginal bleeding Negative LOF Negative Contractions Vitals: 01/01/21 2319 01/02/21 0106 01/02/21 0532 BP: 127/79 115/68 115/61 Pulse: (!) 112 (!) 111 (!) 112 Resp: 16 Temp: 97.8 F (36.6 C) 97.8 F (36.6 C) 99.8 F (37.7 C) TempSrc: Oral Temporal Temporal SpO2: 100% 99% 97% Weight: (!) 244 lb 11.4 oz (111 kg) Height: 5' 6 (1.676 m) Physical Exam: Gen: NAD HEENT: Normocephalic, Atraumatic, EOMI, MMM Resp: CTABL, no WRR Card: RRR S1S2 Abd: soft, gravid, NTND, no rebound, no guarding. negative fundal tenderness Ext: No LE edema, no calf tenderness or swelling Medications: Current Facility-Administered Medications Medication Dose Route Frequency Provider Last Rate Last Admin lactated ringers infusion IntraVENous Continuous Paola Thornton MD 125 mL/hr at 01/02/21113 NewBag at 01/02/21113 sodium chloride flush 0.9 % injection 10 mL 10 mL IntraVENous 2 times per day Paola Thornton MD sodium chloride flush 0.9 % injection 10 mL 10 mL IntraVENous PRN Paola Thornton MD 0.9 % sodium chloride infusion 25 mL IntraVENous PRN Paola Thornton MD ondansetron (ZOFRAN-ODT) disintegrating tablet 4 mg 4 mg Oral Q8H PRN Paola Thornton MD Or ondansetron (ZOFRAN) injection 4 mg 4 mg IntraVENous Q6H PRN Paola Thornton MD acetaminophen (TYLENOL) tablet 650 mg 650 mg Oral Q4H PRN Paola Thornton MD Or acetaminophen (TYLENOL) suppository 650 mg 650 mg Rectal Q4H PRN Paola Thornton MD vitamin 27-1 MG tablet 1 tablet 1 tablet Oral Daily Paola Thornton MD docusate sodium (COLACE) capsule 100 mg 100 mg Oral BID PRN Paola Thornton MD magnesium sulfate (61028 mg/500mL infusion) 2,000 mg/hr IntraVENous Continuous Paola Thornton MD 50 mL/hr at 01/02/21113 2,000 mg/hr at 01/02/21113 Assessment/Plan: Shaheed Bobo is a 20 y.o. female @ 21wk6d HTN - BP normotensive since admission - UPC 0.57 - magnesium sulfate running for seizure ppx - headache has resolved, continues to complain of blurring of vision, denies RUQ pain Papilledema - continues to complain of blurred vision - Neurology consulted No PNC - Social Work consulted - labs pending - growth US today IUP @ 21wk6d - Dating by wk5d US consistent with given LMP - transverse - Monitoring:FHT daily - Diet:General - BMZ deferred Further plan pending d/w attending. Shane SpenceDO kaylynn 01/02/2021, 6:13 AM Associated attestation - Sheron Vargas MD - 01/02/2021 12:37 PM EST MFM ATTESTATION The chart was reviewed. The patient was seen and evaluated with residents. I independently evaluated the patient. The patient was accompanied by the father of the baby. Agree with findings and plans as documented with the following additions. The patient reports that over the previous 2 weeks, she has had increasing challenges with her vision. The patient reports that she had a blood vessel burst in her right eye with resulting blurry vision. Over time, the left eye also started to become blurry. The patient has had no further changes in vision per her report. The patient states that neurology has seen her this morning and will formulate a plan of management. The neurologist has stated to the patient that an ophthalmology consultation may be indicated. The patient reports no other known medical complications. The patient reports that this is not happened to her previously. The patient has no other signs or symptoms of the severe features of preeclampsia. The patient does report a history of headaches outside of that are usually alleviated with Tylenol. Vitals: 01/01/21 2319 01/02/21 0106 01/02/21 0532 01/02/21 0808 BP: 127/79 115/68 115/61 117/64 Pulse: (!) 112 (!) 111 (!) 112 (!) 103 Resp: 18 16 16 18 Temp: 97.8 F (36.6 C) 97.8 F (36.6 C) 99.8 F (37.7 C) 98.5 F (36.9 C) TempSrc: Oral Temporal Temporal Temporal SpO2: 100% 99% 97% 98% Weight: (!) 244 lb 11.4 oz (111 kg) Height: 5' 6 (1.676 m) Discussion and Counseling I explained to the patient and the father the baby that preeclampsia with severe features at this early gestational age is relatively uncommon. Additionally, the patient's blood pressures are well within the normal range at this time with no medications. The patient does have an elevated urine protein to creatinine ratio. The etiology of this finding is unclear. The bedside sonogram shows that the fetus is measuring within normal limits of size. growth restriction is not identified at this time. It is important to evaluate for other potential treatable etiologies. Therefore agree with neurology consultation and ophthalmology consultation. Further recommendationswill likely follow once this assessment has been completed. It is important to exclude other possibilities. Given the early gestational age, normal pattern of growth, the otherwise normal assessment ofpreeclampsia labs with the exception of the urine protein to creatinine ratio, and now blood pressures that are well within the normal range without treatment, early onset preeclampsia is a possibility but would be rare. The patient and her partner verbalized her understanding of the above discussion. They are amenableto this plan. The patient and her partner had their questions addressed to their satisfaction. Recommendations: Await neurology consultation and ophthalmology consultation. 2. Continue inpatient management. 3. Further recommendations will follow pending the report by the consultants and as this patient continues to be reassessed in hospital. Sheron Vargas MD, YANIRA Maternal Medicine Time Statement: A total of 40 minutes was take to complete this encounter of which greater than 50 percent was in face to face consultation and coordination of care. imv documented in this encounterSUMMA Work Phone: [phone] Note Attestation signed by Asia Atkinson MD at 01/05/2021 5:38 PM M I saw this patient with the residency team today and agree with the plan for discharge. She had an ultrasound this admission. The follow up is arranged for this Friday with establishment of care in our [place] office. Please see the residents note for medications upon discharge and follow up neurology at [facility] as well this Low likelihood of pre-eclampsia this admission but will watch closely. Add ASA 81mg daily with appointment in [place]. Plan for delivery at 37 weeks and consider second stage assist with this IOL if no indication sooner. Less than 30 minutes spent Asia Atkinson MD Department of Obstetrics and Gynecology [facility] Discharge Summary Admission on 01/01/2021 10:57 PM Shaheed Bobo is a 20 y.o. at 21w6d who was transferred from [facility] ED after confirmed in the setting of papilledema and hypertension. Patient reported a positive home test in August 2020. Presented to [facility] 01[facility]01 after 1-week history of headache and blurry vision. Blood pressures were initially severe in OSH and magnesium sulfate was started for seizure ppx. An ultrasound was obtained and dated patient at 21w6d. A head CT was negative for intracranial processes. Patient was transferred to [facility] for higher level of care and labs were obtained. Blood pressures were normotensive on arrival and have remained normotensive throughout entire hospital stay. PreE labs and 24 hour urine protein were normal, low likelihood for Pre-Eclampsia. Pt had dating and viability/growth US which put her at 22 wks . 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 Neurology was then consulted. The patient underwent MRI/A/V which were all negative for acute process. Lumbar puncture was performed which confirmed diagnosis of IIH with an elevated opening pressure of 53, followed by 32cc drainage of CSF. Pt has had intermittent headaches since that have slowly improved after initiation of diamox per neurology recommendation. Will discharge home with strict follow up instructions with neurology and need to establish care with Counts include 234 beds at the [facility]. Continue taking diamox BID and reglan PRN for headaches. Meds: Medication List START taking these medications acetaZOLAMIDE 500 MG extended release capsule Commonly known as: DIAMOX Take 1 capsule by mouth every 12 hours metoclopramide 10 MG tablet Commonly known as: REGLAN Take 1 tablet by mouth 3 times daily (with meals) Where to Get Your Medications These medications were sent to [facility] - [place], [place] - [address] - P [phone] - F [phone] [address] [place] [address] ? acetaZOLAMIDE 500 MG extended release capsule Information about where to get these medications is not yet available Ask your nurse or doctor about these medications ? metoclopramide 10 MG tablet Discharge to: Home Discharge date: 01/05/2021 Discharge Dx: Idiopathic Intracranial Hypertension, Papilledema Follow up appointment with your doctor/photographic process attendant - Call Counts include 234 beds at the [facility] office for appointment next week and call neurology office for appointment next week Activity - Normal Activity Call your doctor/photographic process attendant if you have: - leaking fluid - vaginal bleeding - regular contractions: More than 6 contractions in one hour - decreased movement - worsening abdominal (belly) pain - headache, blurry vision, increased swelling, upper abdominal pain Moon Segura, DO on 01/05/2021 at 2:40 [facility] Chronic hypertension affecting Blurry vision Other specified visual disturbances Influenza vaccination declined by patient Papilledema Papilloedema, unspecified headache in second trimester documented in this [facility] Phone: Evaluation note* Diagnosis S/P - Primary Other postprocedural status Labor and delivery, indication for care Unspecified indication for care or intervention related to labor and delivery, unspecified as to episode of care documented in this encounter [facility] Phone: Evaluation note* Diagnosis Septicemia (HCC)- Primary Unspecified septicemia Pyrexia of unknown origin following delivery Puerperal pyrexia of unknown origin, unspecified as to episode of care Postoperative fever Postprocedural fever documented in this encounter [facility] Phone: Evaluation note* Diagnosis depression- Primary Mental disorders of mother, PANCHO (generalized anxiety disorder) Generalized anxiety disorder Pseudotumor [facility] Diagnosis depression- Primary Mental disorders of mother, PANCHO (generalized anxiety disorder) Generalized anxiety disorder Weight gain Abnormal weight gain Screening for diabetes mellitus Encounter for lipid screening for cardiovascular disease Screening for lipoid disorders [facility] [place] [facility]* Diagnosis Pain of right lower extremity- Primary [facility] [place] [facility]* Diagnosis Major depressive disorder with single episode, remission status unspecified- Primary PANCHO (generalized anxiety disorder) Generalized anxiety disorder Class 2 obesity due to excess calories without serious comorbidity with body mass index (BMI) of 37.0 to 37.9 in adult Weight gain Abnormal weight gain Pseudotumor Encounter for screening for diabetes mellitus Screening for diabetes mellitus Encounter for lipid screening for cardiovascular disease Screening for lipoid disorders Fatigue, unspecified type Medication management Encounter for long-term (current) use of other medications [facility] [place] [facility]* Diagnosis Elevated hemoglobin A1c Other abnormal blood chemistry Hyperlipidemia, mixed Mixed hyperlipidemia Hypercalcemia Elevated LFTs Other abnormal blood chemistry Thrombocytosis Essential thrombocythemia [facility] [place] [facility]* Diagnosis Major depressive disorder with single episode, remission status unspecified- Primary Urticaria Urticaria, unspecified documented [facility] this [facility] [place] [facility]* Diagnosis Major depressive disorder with single episode, remission status unspecified- Primary PANCHO (generalized anxiety disorder) Generalized anxiety disorder [facility] [place] [facility]* Diagnosis Thrombocytosis- Primary Essential thrombocythemia Elevated LFTs Other abnormal blood chemistry Hypercalcemia documented [facility] this [facility] [place] [facility]* Diagnosis Pseudotumor- Primary Headache, unspecified headache type documented [facility] this [facility] [place] [facility]* Diagnosis Hypercalcemia- Primary Thrombocytosis Essential thrombocythemia documented [facility] this [facility] [place] [facility]* Diagnosis Foot pain, right- Primary Pain in limb documented [facility] this [facility] [place] [facility]* Diagnosis Pseudotumor cerebri- Primary Benign intracranial hypertension documented [facility] this [facility] [place] [facility]* Diagnosis Pseudotumor Headache, unspecified headache type documented [facility] this [facility] [place] [facility]* Diagnosis Pseudotumor cerebri Benign intracranial hypertension documented [facility] this [facility] [place] [facility]* Diagnosis Positive JOE (antinuclear antibody)- Primary Other and unspecified nonspecific immunological findings Positive Lyme disease serology Other and unspecified nonspecific immunological findings documented [facility] this [facility] [place] [facility]* Diagnosis Hyperlipidemia, mixed- Primary Mixed hyperlipidemia Elevated hemoglobin A1c Other abnormal blood chemistry Pseudotumor cerebri Benign intracranial hypertension Thrombocytosis Essential thrombocythemia Paradoxical insomnia Persistent disorder of initiating or maintaining sleep Attention deficit hyperactivity disorder (ADHD), combined type PANCHO (generalized anxiety disorder) Generalized anxiety disorder Major depressive disorder with single episode, remission status unspecified Oppositional defiant disorder Oppositional defiant disorder of childhood or adolescence Class 2 obesity due to excess calories without serious comorbidity with body mass index (BMI) of 37.0 to 37.9 in adult [facility]* Diagnosis Pseudotumor cerebri- Primary Benign intracranial hypertension [facility] this [facility] noteNo assessment information availableWPro[facility] Work Phone: Evaluation note* Diagnosis Obstructive sleep apnea- Primary Obstructive sleep apnea (adult) (pediatric) Excessive daytime sleepiness documented [facility] this [facility] [place] [facility]* Diagnosis Hyperlipidemia, mixed- Primary Mixed hyperlipidemia PANCHO (generalized anxiety disorder) Generalized anxiety disorder Oppositional defiant disorder Oppositional defiant disorder of childhood or adolescence Major depressive disorder with single episode, remission status unspecified Attention deficit hyperactivity disorder (ADHD), combined type Paradoxical insomnia Persistent disorder of initiating or maintaining sleep Class 2 obesity due to excess calories without serious comorbidity with body mass index (BMI) of 37.0 to 37.9 in adult Headache, unspecified headache type documented [facility] this encounter [facility] [place] [facility]* Diagnosis Numbness and tingling in right hand- Primary Disturbance of skin sensation documented [facility] this [facility] [place] [facility]* Diagnosis Neck pain- Primary Cervicalgia Numbness and tingling of both upper extremities Right arm pain Pain in limb Neck pain Cervicalgia Numbness and tingling of both upper extremities documented [facility] this encounter [facility] [place] [facility]* Diagnosis Neck pain Cervicalgia Numbness and tingling of both upper extremities [facility]* Diagnosis Foot pain, right Pain in limb documented in this encounter [facility] [place] [facility]* Diagnosis Major depressive disorder with single episode, remission status unspecified- Primary PANCHO (generalized anxiety disorder) Generalized anxiety disorder documented [facility] this [facility] [place] [facility]* Diagnosis JUAN M on CPAP- Primary Obstructive sleep apnea (adult) (pediatric) documented in this encounter [facility] [place] [facility]* Diagnosis Headaches, tension- Primary Pseudotumor cerebri Benign intracranial hypertension documented [facility] this encounter [facility] [place] [facility]* Diagnosis Elevated hemoglobin A1c- Primary Other abnormal blood chemistry Increased thirst Polydipsia [facility] [place] [facility]* Diagnosis Elevated LFTs- Primary Other abnormal blood chemistry Hypercalcemia Thrombocytosis Essential thrombocythemia documented in this encounter [facility] note* Diagnosis Elevated liver enzymes- Primary Other nonspecific abnormal serum enzyme levels Leukocytosis, unspecified type Hypercalcemia Microscopic hematuria Hyperlipidemia, mixed Mixed hyperlipidemia [facility] [place] [facility]* Diagnosis Elevated liver enzymes Other nonspecific abnormal serum enzyme levels documented in this encounter [facility] note* Diagnosis Hyperlipidemia, mixed- Primary Mixed hyperlipidemia Elevated hemoglobin A1c Other abnormal blood chemistry Major depressive disorder with single episode, remission status unspecified PANCHO (generalized anxiety disorder) Generalized anxiety disorder Attention deficit hyperactivity disorder (ADHD), combined type Oppositional defiant disorder Oppositional defiant disorder of childhood or adolescence Pseudotumor cerebri Benign intracranial hypertension Class 2 obesity due to excess calories without serious comorbidity with body mass index (BMI) of 37.0 to 37.9 in adult Thrombocytosis Essential thrombocythemia Elevated LFTs Other abnormal blood chemistry WHITNEY (nonalcoholic steatohepatitis) Other chronic nonalcoholic liver disease Altered bowel habits Other symptoms involving digestive system Chronic constipation Unspecified constipation Hypercalcemia Vitamin D deficiency Unspecified vitamin D deficiency Leukocytosis, unspecified type Medication management Encounter for long-term (current) use of other medications Elevated blood pressure reading without diagnosis of hypertension documented in this encounter [facility] note* Diagnosis Elevated BP without diagnosis of hypertension- Primary [facility] [place] [facility]* Diagnosis Thrombocytosis- Primary Essential thrombocythemia Leukocytosis, unspecified type documented in this encounter [facility] note* Diagnosis Encounter for gynecological examination (general) (routine) without abnormal findings- Primary Screening for cervical cancer Screening for malignant neoplasm of the cervix Encounter for screening for human papillomavirus (HPV) Special screening examination for human papillomavirus (HPV) Need for prophylactic vaccination/inoculation against viral disease Need for prophylactic vaccination and inoculation against other viral diseases Need for vaccination Need for prophylactic vaccination and inoculation against unspecified single disease Screen for STD (sexually transmitted disease) Screening examination for venereal disease documented in this encounter [facility] note* Diagnosis Positional headache Headache New daily persistent headache documented in this encounter [facility] note* Diagnosis Positional headache Headache New daily persistent headache documented in this encounter [facility] note* Diagnosis Desire for - Primary Unspecified procreative management Infertility management Unspecified procreative management documented in this encounter [facility] note* Diagnosis Desire for - Primary Unspecified procreative management Infertility management Unspecified procreative management Abnormal endometrial ultrasound Nonspecific (abnormal) findings on radiological and other examination of genitourinary organs documented in this encounter [facility] note* Diagnosis Leukocytosis, unspecified type- Primary Thrombocytosis Essential thrombocythemia documented in this encounter [facility] note* Diagnosis Migraine without aura and without status migrainosus, not intractable- Primary Migraine without aura, without mention of intractable migraine without mention of status migrainosus documented in this encounter [facility] note* Diagnosis WHITNEY (nonalcoholic steatohepatitis) Other chronic nonalcoholic liver disease Altered bowel habits Other symptoms involving digestive system Chronic constipation Unspecified constipation Encounter for screening for malignant neoplasm of colon Special screening for malignant neoplasms, colon Hypertriglyceridemia Pure hyperglyceridemia documented in this encounter [facility] note* Diagnosis Thrombocytosis- Primary Essential thrombocythemia Leukocytosis, unspecified type documented in this encounter [facility] note* Diagnosis Need for vaccination- Primary Need for prophylactic vaccination and inoculation against unspecified single disease documented in this encounter [facility] note* Diagnosis Iron deficiency- Primary Iron deficiency anemia, unspecified Thrombocytosis Essential thrombocythemia [facility]* Attachments The following attachments cannot be sent through Care Everywhere. * : Endometritis (Jordanian) [facility]: Hospital Discharge instructions Additional Instructions Follow-up with your primary care physician as well as your neurologist. Return back to the ED if symptoms change or worsen.[facility] Work Phone: Reason for referral (narrative)* Diagnostic Procedure Only (Urgent) - Closed Specialty Diagnoses / Procedures Referred By Conttoan t Referred To Contact XR IMAGING Diagnoses Pain of right lower extremity Procedures XR TIBIA FIBULA 2V AP/LAT RIGHT RADIOLOGIC EXAMINATION TIBIA & FIBULA 2 VIEWS Silvio Jade, MATY.CRITICAL CARE EDUCATOR [address] [place] [address] Xr Imaging Referral ID Status Reason Start Date Expiration Date V isits Requested Visits Authorized [id number] Closed Auto-Generate d Referral 11/01/2021 12/01/2022 1 1 [facility] for referral (narrative)* Diagnostic Procedure Only (Urgent) - Closed Specialty Diagnoses / Procedures Referred By Contac t Referred To Contact XR IMAGING Diagnoses Foot pain, right Procedures XR FOOT GENERAL 3V AP/LAT/OBL RIGHT RADEX FOOT COMPLETE MINIMUM 3 VIEWS Norma Gaspar PA-C [address] [place] [address] [place] [address] Referral ID Status Reason Start Date Expiration Date V isits Requested Visits Authorized [id number] Closed Auto-Generate d Referral 10/22/2022 11/21/2023 1 1 * Diagnostic Procedure Only (Urgent) - Closed Specialty Diagnoses / Procedures Referred By Contac t Referred To Contact XR IMAGING Diagnoses Foot pain, right Procedures XR ANKLE GENERAL 3V AP/LAT/OBL RIGHT RADEX ANKLE COMPLETE MINIMUM 3 VIEWS Norma Gaspar PA-C [address] [place] [address] [place] [address] Referral ID Status Reason Start Date Expiration Date V isits Requested Visits Authorized [id number] Closed Auto-Generate d Referral 10/22/2022 11/21/2023 1 1 [facility] for referral (narrative)* Diagnostic Procedure Only (Routine) - Closed Specialty Diagnoses / Procedures Referred By Contac t Referred To Contact XR IMAGING Diagnoses Neck pain Numbness and tingling of both upper extremities Procedures XR CERV OTHER 4V AP/LAT/OBL RADEX SPINE CERVICAL 4 OR 5 VIEWS Bryant Grimm MD [address] [place] [address] [place] [address] Referral ID Status Reason Start Date Expiration Date V isits Requested Visits Authorized [id number] Closed Auto-Generate d Referral 08/15/2023 09/13/2024 1 1 [facility] for referral (narrative)* Diagnostic Procedure Only (Urgent) - Closed Specialty Diagnoses / Procedures Referred By Contac t Referred To Contact XR IMAGING Diagnoses Foot pain, right Procedures XR ANKLE GENERAL 3V AP/LAT/OBL RIGHT RADEX ANKLE COMPLETE MINIMUM 3 VIEWS Norma Gaspar PA-C [address] [place] [address] [place] [address] Referral ID Status Reason Start Date Expiration Date V isits Requested Visits Authorized [id number] Closed Auto-Generate d Referral 10/22/2022 11/21/2023 1 1 * Diagnostic Procedure Only (Urgent) - Closed Specialty Diagnoses / Procedures Referred By Contac t Referred To Contact XR IMAGING Diagnoses Foot pain, right Procedures XR FOOT GENERAL 3V AP/LAT/OBL RIGHT RADEX FOOT COMPLETE MINIMUM 3 VIEWS Norma Gaspar PA-C [address] [place] [address] [place] [address] Referral ID Status Reason Start Date Expiration Date V isits Requested Visits Authorized [id number] Closed Auto-Generate d Referral 10/22/2022 11/21/2023 1 1 [facility] for referral (narrative)No reason for referral information availableWProMedica [facility] Work Phone[facility]* Diagnostic Procedure Only (Routine) - Closed Specialty Diagnoses / Procedures Referred By Contac t Referred To Contact XR IMAGING Diagnoses Neck pain Numbness and tingling of both upper extremities Procedures XR CERV OTHER 4V AP/LAT/OBL RADEX SPINE CERVICAL 4 OR 5 VIEWS Braynt Grimm MD [address] [place] [address] [place] [address] Referral ID Status Reason Start Date Expiration Date V isits Requested Visits Authorized [id number] Closed Auto-Generate d Referral 08/15/2023 09/13/2024 1 1 [facility] for visit Narrative* Diagnostic Procedure Only (Urgent) - Closed Specialty Diagnoses / Procedures Referred By Contac t Referred To Contact XR IMAGING Diagnoses Foot pain, right Procedures XR FOOT GENERAL 3V AP/LAT/OBL RIGHT RADEX FOOT COMPLETE MINIMUM 3 VIEWS Norma Gaspar PA-C [address] [place] [address] Xr Imaging [facility] Referral ID Status Reason Start Date Expiration Date V isits Requested Visits Authorized [id number] Closed Auto-Generate d Referral 10/22/2022 11/21/2023 1 1 [facility] for visit Narrative* Diagnostic Procedure Only (Urgent) - Closed Specialty Diagnoses / Procedures Referred By Contac t Referred To Contact XR IMAGING Diagnoses Pain of right lower extremity Procedures XR TIBIA FIBULA 2V AP/LAT RIGHT RADIOLOGIC EXAMINATION TIBIA & FIBULA 2 VIEWS Silvio Jade APRN.CRITICAL CARE EDUCATOR [address] [id number] Xr Imaging [place] [address] Referral ID Status Reason Start Date Expiration Date V isits Requested Visits Authorized [id number] Closed Auto-Generate d Referral 11/01/2021 12/01/2022 1 1 [facility] for visit Narrative* MRI/CT (Routine) - Closed Specialty Diagnoses / Procedures Referred By Contac t Referred To Contact MR IMAGING Diagnoses Positional headache New daily persistent headache Procedures MRV BRAIN WO/W IVCON MRA; HEAD W & WO CONTRAST Soto Palacios, PROFESSIONAL SKATER.CRITICAL CARE EDUCATOR [address] [id number] Phone: tel: fax: MR IMAGING [facility] Referral ID Status Reason Start Date Expiration Date V isits Requested Visits Authorized [id number] Closed Auto-Generate d Referral 05/05/2024 06/04/2025 1 1 [facility] for visit Narrative* MRI/CT (Routine) - Closed Specialty Diagnoses / Procedures Referred By Contac t Referred To Contact MR IMAGING Diagnoses Positional headache New daily persistent headache Procedures MRI BRAIN WO/W IVCON MRI BRAIN BRAIN STEM W/O W/CONTRAST MATERIAL Soto Palacios, PROFESSIONAL SKATER.CRITICAL CARE EDUCATOR [address] [place] [address] Phone: tel: fax: [place] [address] Referral ID Status Reason Start Date Expiration Date V isits Requested Visits Authorized [id number] Closed Auto-Generate d Referral 05/05/2024 06/04/2025 1 1 [facility] for visit Narrative* Diagnostic Procedure Only (Routine) - Closed Specialty Diagnoses / Procedures Referred By Contac t Referred To Contact [facility] Diagnoses Desire for Infertility management Procedures PELVIC US WHI US PELVIC NONOBSTETRIC REAL-TIME IMAGE COMPLETE Jose G Taylor, PROFESSIONAL SKATER.CRITICAL CARE EDUCATOR [address] [place] [address] Phone: tel: fax: [facility] [address] [place] [id number] Referral ID Status Reason Start Date Expiration Date V isits Requested Visits Authorized [id number] Closed Auto-Generate d Referral 08/05/2024 08/05/2025 1 1 [facility] for visit Narrative* Financial Clearance (Routine) - Authorized Specialty Diagnoses / Procedures Referred By Contac t Referred To Contact Diagnoses Anything Medically Necessary Procedures Anything Medically Necessary Self [facility] [address] Referral ID Status Reason Start Date Expiration Date Visits Requested Visits Authorized [id number] Authorized Patient Cleared - Qualified 100% FAS 10/21/2024 01/19/2025 99 99 [facility] Advance Directives No Advanced Directives Records FoundLatest Code Status on File Code Status Date Activated Date Inactivated Comments Full Code 01/02/2021 12:16 AM Latest Code Status on File Code Status Date Activated Date Inactivated Comments Full Code 05/02/2021 12:12 PM 05/02/2021 3:41 PM Full Code 01/02/2021 12:16 AM 01/05/2021 5:40 PM Latest Code Status on File Code Status Date Activated Date Inactivated Comments Full Code 05/07/2021 12:40 PM Full Code 05/02/2021 12:12 PM 05/02/2021 3:41 PM Advance Directive Response Recorded Date/ Time Living Will No January 01 7:29pm Power of Desktop Support Associate No January 01, 2021 7:29pm Advance Directive Response Recorded Date/ Time Do you have a Healthcare Power of Desktop Support Associate? No August 11, 2024 1:01pm Summary Purpose Family History No Family History Records FoundNo Family History Records FoundNo Family History Records FoundNo Family History Records Found Reason for Referral Specialty Diagnoses / Procedures Referred By Derrickac t Referred To Contact CT IMAGING Diagnoses Pseudotumor Headache, unspecified headache type Procedures CT BRAIN WO IVCON CT HEAD/BRAIN W/O CONTRAST MATERIAL Lara Jimenez PA-C [address] [place] [address] [place] [address] Referral ID Status Reason Start Date Expiration Date Visits Requested Visits Authorized [id number] Authorized Auto-Generat ed Referral 10/17/2022 11/16/2023 1 1 Specialty Diagnoses / [facility] To Contact [facility] Diagnoses Pseudotumor cerebri Procedures MRV BRAIN WO IVCON MRA, HEAD W/O CONTRAST Nancy Dodge Jr., MD [facility] [address] [place] [address] Mr Imaging [facility] Referral ID Status Reason Start Date Expiration Date Visits Requested Visits Authorized [id number] Authorized Auto-Generat ed Referral 3 01/01/2024 1 1 Specialty Diagnoses / Procedures [facility] Referred To Contact MR IMAGING Diagnoses Pseudotumor cerebri Procedures MRI BRAIN WO IVCON MRI BRAIN BRAIN STEM W/O CONTRAST MATERIAL Nancy Dodge Jr., [facility] [address] [place] [address] [place] [address] Referral ID Status Reason Start Date Expiration Date Visits Requested Visits Authorized [id number] Authorized Auto-Generat ed Referral 3 01/01/2024 1 1 Specialty Diagnoses / Procedures [facility] Diagnoses Pseudotumor cerebri Procedures HOME SLEEP APNEA TEST (HSAT) SLEEP STD AIRFLOW HRT RATE&O2 SAT EFFORT UNATT Nancy Dodge Jr., MD [address] [place] [address] [facility] [address] [place] [address] Referral ID Status Reason Start Date Expiration Date Visits Requested Visits Authorized [id number] Authorized Auto-Generat ed Referral 3 12/02/2023 1 1 Referral ID Status Reason Start Date Expiration Date V isits Requested Visits Authorized [id number] Closed Auto-Generate d Referral 10/17/2022 11/16/2023 1 1 Referral ID Status Reason Start Date Expiration Date V isits Requested Visits Authorized [id number] Closed Auto-Generate d Referral 12/02/2022 01/01/2024 1 1 Referral ID Status Reason Start Date Expiration Date V isits Requested Visits Authorized [id number] Closed Auto-Generate d Referral 12/02/2022 01/01/2024 1 1 Specialty Diagnoses / Procedures Referred By Contac t Referred To Contact Infectious Diseases Diagnoses Positive Lyme disease serology Procedures CONSULT TO INFECTIOUS DISEASES OFFICE/OUTPATIENT [facility] 60-74 MINUTES Nancy Dodge Jr., MD [facility] [address] Referral ID Status Reason Start Date Expiration Date Visits Requested Visits Authorized [id number] Pending Review PCP Requested Referral 3 01/01/2024 1 1 Specialty Diagnoses / Procedures Referred By Contac t Referred To Contact Rheumatology Diagnoses Positive JOE (antinuclear antibody) Procedures CONSULT TO RHEUM/IMMUN DISEASE OFFICE/OUTPATIENT [facility] 60-74 MINUTES Nancy Dodge Jr., MD [address] [address] Referral ID Status Reason Start Date Expiration Date Visits Requested Visits Authorized [id number] Pending Review PCP Requested Referral 3 01/01/2024 1 1 Specialty Diagnoses / Procedures Referred By Contac t Referred To Contact Neurology Diagnoses Pseudotumor cerebri Procedures CONSULT TO NEUROLOGY OFFICE/OUTPATIENT [facility] 60 MINUTES Reshma Winkler PA-C [address] [place] [address] Referral ID Status Reason Start Date Expiration Date Visits Requested Visits Authorized [id number] Authorized PCP Requested Referral 04/01/2023 03/31/2024 1 1 Specialty Diagnoses / Procedures Referred By Contac t Referred To Contact [facility] Diagnoses Neck pain Numbness and tingling of both upper extremities Right arm pain Procedures CONSULT TO PHYSICAL THERAPY PHYSICAL THERAPY EVALUATION HIGH COMPLEX 45 MINS Bryant Grimm MD [address] [place] [address] [facility] [address] [place] [address] Referral ID Status Reason Start Date Expiration Date Visits Requested Visits Authorized [id number] Authorized Auto-Generat ed Referral 02/17/2023 02/17/2024 99 99 Specialty Diagnoses / Procedures Referred By Contac t Referred To Contact XR IMAGING Diagnoses Neck pain Numbness and tingling of both upper extremities Procedures XR CERV OTHER 4V AP/LAT/OBL RADEX SPINE CERVICAL 4 OR 5 VIEWS Bryant Grimm MD [address] [place] [address] [place] [address] Referral ID Status Reason Start Date Expiration Date V isits Requested Visits Authorized [id number] Closed Auto-Generate d Referral 08/15/2023 09/13/2024 1 1 Chief Complaint and Reason for Visit Chief Complaint Obstructive sleep ap meo (adult) (pediatric) Chief Complaint Admit Date headache August 11, 2024 12:0 7pm Additional Source Comments Reason for Visit (unrecogniz ed section and content) Reason Comments Established Patient Specialty Diagnoses / Procedures Referred By Contac t Referred To Contact Diagnoses Anything Medically Necessary Procedures Anything Medically Necessary Self [facility] [address] Referral ID Status Reason Start Date Expiration Date Visits Requested Visits Authorized [id number] Authorized Patient Cleared - Qualified 100% FAS 10/21/2024 01/19/2025 99 99 Reason Comments New Patient Specialty Diagnoses / Procedures Referred By Contac t Referred To Contact Hematology Diagnoses Leukocytosis, unspecified type Thrombocytosis Procedures CONSULT TO HEMATOLOGY OFFICE/OUTPATIENT NEW HIGH MDM 60 MINUTES Bryant Grimm MD [address] [place] [address] Phone: tel: fax: Referral ID Status Reason Start Date Expiration Date V isits Requested Visits Authorized [id number] Closed PCP Requested Referral 06/25/2024 06/25/2025 1 1 Reason Comments Hypertension Reason Comments Lower Back Pain Nausea & Vomiting Reason Comments Fever patient c/o fever/ch ills , had 05/02. denies cough/congestion, denies sick contacts; denies worsening pain or redness to surgical site. Reason Comments Results Reason Comments Depression and axniety Reason Comments Refill Request Reason Comments Med Change Request Reason Comments Trauma Sharp pain in lower right calf x 1 day Reason Comments Recheck Reason Comments Recheck depression Reason Onset Date Comments Refill Request 08/04/2022 Reason Comments Headache And medication refil ls Reason Comments Ankle Pain right ankle pain and swelling x 2 days, denies injury Reason Comments New Patient Pt reported Hx Morris, d aily Reason Comments Radiology CT Specialty Diagnoses / Procedures Referred By Conttoan t Referred To Contact CT IMAGING Diagnoses Pseudotumor Headache, unspecified headache type Procedures CT BRAIN WO IVCON CT HEAD/BRAIN W/O CONTRAST MATERIAL Lara Jimenez PA-C [address] [place] [address] [place] [address] Referral ID Status Reason Start Date Expiration Date V isits Requested Visits Authorized [id number] Closed Auto-Generate d Referral 10/17/2022 11/16/2023 1 1 Specialty Diagnoses / Procedures Referred By Conttoan t Referred To Contact MR IMAGING Diagnoses Pseudotumor cerebri Procedures MRV BRAIN WO IVCON MRA, HEAD W/O CONTRAST Nancy Dodge Jr., MD [address] [address] [facility] [place] [address] Referral ID Status Reason Start Date Expiration Date V isits Requested Visits Authorized [id number] Closed Auto-Generate d Referral 12/02/2022 01/01/2024 1 1 Reason Comments Referral Request Reason Comments 6 Month Exam Reason Comments Patient Update Reason Comments Appointment Cancelled due to provider ou t Future Appointment for Headache Clinic Reason Comments Follow Up Reason Onset Date Comments Refill Request 06/06/2023 Reason Comments Outside ED Reason Comments Physical Reason Comments Hand Pain Having pain and numb ness right wrist and hand x 3-4 days Reason Comments Numbness Reason Comments Orders [facility] Reason Comments Appointment Reason Comments Depression Reason Comments Medication Clearance Form Specialty Diagnoses / Procedures Referred By Contac t Referred To Contact Neurology Diagnoses Pseudotumor cerebri Procedures CONSULT TO NEUROLOGY OFFICE/OUTPATIENT [facility] 60 MINUTES Reshma Winkler PA-C [address] [place] [address] Referral ID Status Reason Start Date Expiration Date V isits Requested Visits Authorized [id number] Closed PCP Requested Referral 04/01/2023 03/31/2024 1 1 Reason Comments Low Blood Sugar Reason Comments Outside Labs-[facility] Ordered Reason Comments Follow Up Reason Comments Radiology US Special[facility] Diagnoses / [facility] Diagnoses Elevated liver enzymes Procedures US ABD RIGHT UPPER QUADRANT US ABDOMINAL REAL TIME W/IMAGE LIMITED Lara Jimenez PA-C [address] [place] [phone] Phone: tel: fax: [facility] [place] [address] Referral ID Status Reason Start Date Expiration Date V isits Requested Visits Authorized [id number] Closed Auto-Generate d Referral 05/07/2024 06/06/2025 1 1 Reason Onset Date Comments Results 05/18/2024 Reason Comments Requesting Lab results Reason Comments Blood Pressure Reason Onset Date Comments Well Woman Gardasil Injection 2024 Reason Comments Infertility Reason Comments Headache Reason Comments Received Outside Medical Records [facility] ED visit - No admission Reason Onset Date Comments Results 06/25/2024 Reason Comments Consult Hepatic steatosis Specialty Diagnoses / Procedures [facility] Ref[facility] To Contact Gastroenterology Diagnoses WHITNEY (nonalcoholic steatohepatitis) Altered bowel habits Chronic constipation Procedures CONSULT TO GASTROENTEROLOGY OFFICE/OUTPATIENT [facility] 60 MINUTES Bryant Grimm MD [address] [place] [address] Phone: tel: fax: Referral ID Status Reason Start Date Expiration Date V isits Requested Visits Authorized [id number] Closed PCP Requested Referral 05/25/2024 05/25/2025 1 1 Ordered Prescriptions (unrec ognized section and content) Prescription Sig Dispensed Refills Start Date End Da te acetaZOLAMIDE (DIAMOX) 500 MG extended release capsule Take 1 capsule by mouth every 12 hours 60 capsule 3 01/05/2021 metoclopramide (REGLAN) 10 MG tablet Take 1 tablet by mouth 3 times daily (with meals) 30 tablet 1 01/05/2021 acetaZOLAMIDE (DIAMOX) 500 MG extended release capsule Take 1 capsule by mouth every 12 hours 60 capsule 3 01/05/2021 01/05/2021 Prescription Sig Dispensed Refills Start Date End Da te Vit-Fe Fumarate-FA ( VITAMIN) 27-1 MG TABS tablet Take 1 tablet by mouth daily 30 tablet 3 05/04/2021 docusate sodium (COLACE) 100 MG capsule Take 1 capsule by mouth 2 times daily as needed for Constipation 60 capsule 1 05/04/2021 ferrous sulfate (IRON 325) 325 (65 Fe) MG tablet Take 1 tablet by mouth 2 times daily (with meals) 60 tablet 1 05/04/2021 ibuprofen (ADVIL;MOTRIN) 600 MG tablet Take 1 tablet by mouth every 6 hours 60 tablet 1 05/04/2021 oxyCODONE (ROXICODONE) 5 MG immediate release tabletIndications:S/P Take 1 tablet by mouth every 6 hours as needed for Pain for up to 5 days. 20 tablet 0 05/04/2021 05/09/2021 Prescription Sig Dispensed Refills Start Date End Da te acetaZOLAMIDE (DIAMOX) 500 MG extended release capsule Take 1 capsule by mouth every 12 hours 60 capsule 3 05/09/2021 Scheduled Active and Recently Administ ered Medications (unrecognized section and content) Medication Order 01/03/2021 01/04/2021 01/05/2021 acetaZOLAMIDE (DIAMOX) extended release capsule 500 mg 500 mg, Oral, EVERY 12 HOURS SCHEDULED (2 times per day), First dose on Fri01/05/21 at 2100 2100 (Due) acetaZOLAMIDE (DIAMOX) tablet 500 mg (CANCELED) 500 mg, Oral, 2 TIMES DAILY, First dose on Fri01/05/21 at 0900 0843 (Given - Provider: Daniella Davis RN) acetaZOLAMIDE (DIAMOX) tablet 500 mg (COMPLETED) 500 mg, Oral, DAILY, First dose (after last modification) on Isabelle 01/04/21 at 1130, For 1 dose 1333 (Given - Provider: Esther Polanco RN - Comment: Dose not available from pharmacy) diphenhydrAMINE (BENADRYL) injection 25 mg (COMPLETED) 25 mg, IntraVENous, ONCE, On Fri01/04/21 at 1900, For 1 dose 1852 (Given - Provider: Esther Polanco RN) lidocaine 4 % external patch 1 patch 1 patch, TransDERmal, Administer over 12 Hours, DAILY, First dose (after last modification) on Fri01/05/21 at 0900, Apply patch to affect area. Patch may remain in place for up to 12 hours in any 24 hour period. 0838 (Patch Applied - Provider: Daniella Davis RN)113 (Patch Removed - Provider: Daniella Davis RN - Comment: pt states patch fell off)2037 (Due: Patch Removed - Provider: Daniella Davis RN) metoclopramide (REGLAN) injection 10 mg (COMPLETED) 10 mg, IntraVENous, ONCE, On Fri01/03/21 at 0045, For 1 dose 0029 (Given - Provider: Kenya Matehws RN) metoclopramide (REGLAN) injection 10 mg (COMPLETED) 10 mg, IntraVENous, ONCE, On Fri01/04/21 at 1700, For 1 dose 1645 (Given - Provider: Esther Polanco RN) metoclopramide (REGLAN) injection 10 mg (COMPLETED) 10 mg, IntraVENous, ONCE, On Fri01/05/21 at 0830, For 1 dose 0845 (Given - Provider: Daniella Davis RN) vitamin 27-1 MG tablet 1 tablet 1 tablet, Oral, DAILY, First dose on Fri01/02/21 at 0900 1229 (Given - Provider: Matteo Ruvalcaba RN) 0902 (Given - Provider: Esther Polanco RN) 1103 (Given - Provider: Daniella Davis RN) sodium chloride flush 0.9 % injection 10 mL 10 mL, IntraVENous, EVERY 12 HOURS SCHEDULED (2 times per day), First dose on Fri01/02/21 at 0900 0927 (Given - Provider: Matteo Ruvalcaba RN)2055 (Given - Provider: Amaya Mcdonnell RN) 0911 (Given - Provider: Esther Polanco RN)2256 (Given - Provider: Kenya Mathews RN) 0846 (Given - Provider: Daniella Davis, DELPHINE)2100 (Due) PRN Medication Order 01/03/2021 01/04/2021 01/05/2021 0.9 % sodium chloride infusion 25 mL, IntraVENous, at 100 mL/hr, PRN, If patient receiving piggyback infusions without ordered maintenance IV fluids or with frequent/long duration piggyback infusions, Starting on Fri01/01/21 at 2359, Administer at the same rate as the piggyback being infused. acetaminophen (TYLENOL) suppository 650 mg(Linked Group 1) 650 mg, Rectal, EVERY 4 HOURS PRN, Pain Mild (1-3), Fever, Fever >100.5 (38 C), Starting on Fri01/01/21 at 2359, Use suppository if NPO or unable to tolerate oral medications. 0015 (See Alternative - Provider: Kenya Mathews RN)1228 (See Alternative - Provider: Matteo Ruvalcaba RN)1620 (See Alternative - Provider: Matteo Ruvalcaba RN) 0902 (See Alternative - Provider: Esther Polanco RN)1524 (See Alternative - Provider: Esther Polanco RN)2255 (See Alternative - Provider: Kenya Mathews RN) 0947 (See Alternative - Provider: Daniella Davis RN) acetaminophen (TYLENOL) tablet 650 mg(Linked Group 1) 650 mg, Oral, EVERY 4 HOURS PRN, Pain Mild (1-3), Fever, Fever >100.5 (38 C), Starting on Fri01/01/21 at 2359, Do not use if NPO. 0015 (Given - Provider: Kenya Mathews RN)1228 (Given - Provider: Matteo Ruvalcaba RN)1620 (Given - Provider: Matteo Ruvalcaba RN) 0902 (Given - Provider: Esther Polanco RN)1524 (Given - Provider: Esther Polanco RN)2255 (Given - Provider: Kenya Mathews RN) 0947 (Given - Provider: Daniella Davis, DELPHINE) diphenhydrAMINE (BENADRYL) tablet 25 mg 25 mg, Oral, EVERY 6 HOURS PRN, headache, Starting on Fri01/03/21 at 0052 0115 (Given - Provider: Kenya Mathews RN) 0345 (Given - Provider: Kenya Mathews RN) docusate sodium (COLACE) capsule 100 mg 100 mg, Oral, 2 TIMES DAILY PRN, Constipation, Starting on Fri01/01/21 at 2359, Do not crush or break. 1837 (Given - Provider: Matteo Ruvalcaba RN) 0538 (Given - Provider: Amaya Riddle RN) lidocaine (XYLOCAINE) 2 % jelly Topical, PRN, Pain, Starting on Fri01/05/21 at 1254, Apply to back of neck ondansetron (ZOFRAN) injection 4 mg(Linked Group 2) 4 mg, IntraVENous, EVERY 6 HOURS PRN, Nausea, Vomiting, Starting on Fri01/01/21 at 2359, Administer if oral route cannot be used. 1226 (See Alternative - Provider: Esther Polanco RN) 1103 (See Alternative - Provider: Daniella Davis, DELPHINE) ondansetron (ZOFRAN-ODT) disintegrating tablet 4 mg(Linked Group 2) 4 mg, Oral, EVERY 8 HOURS PRN, Nausea, Vomiting, Starting on Fri01/01/21 at 2359 1226 (Given - Provider: Esther Polanco RN) 1103 (Given - Provider: Daniella Davis, DELPHINE) polyethylene glycol (GLYCOLAX) packet 17 g 17 g, Oral, DAILY PRN, Constipation, Starting on Isabelle 01/04/21 at 2105 sodium chloride flush 0.9 % injection 10 mL 10 mL, IntraVENous, PRN, Line Care, After every IV line use, Starting on Fri01/01/21 at 2359 Linked Groups Order Group 1: acetaminophen (TYLENOL) tablet 650 mgJump to med 650 mg, Oral, EVERY 4 HOURS PRN, Pain Mild (1-3), Fever, Fever >100.5 (38 C), Starting on Fri01/01/21 at 2359
Do not use if NPO.
Or acetaminophen (TYLENOL) suppository 650 mgJump to med 650 mg, Rectal, EVERY 4 HOURS PRN, Pain Mild (1-3), Fever, Fever >100.5 (38 C), Starting on 01/01/21 at 2359
Use suppository if NPO or unable to tolerate oral medications.
Group 2: ondansetron (ZOFRAN-ODT) disintegrating tablet 4 mgJump to med 4 mg, Oral, EVERY 8 HOURS PRN, Nausea, Vomiting, Starting on Fri01/01/21 at 2359 Or ondansetron (ZOFRAN) injection 4 mgJump to med 4 mg, IntraVENous, EVERY 6 HOURS PRN, Nausea, Vomiting, Starting on Fri01/01/21 at 2359
Administer if oral route cannot be used.
Scheduled Medication Order 05/03/2021 05/04/2021 05/05/2021 acetaZOLAMIDE (DIAMOX) extended release capsule 500 mg 500 mg, Oral, EVERY 12 HOURS SCHEDULED (2 times per day), First dose on Isabelle 05/03/21 at 1100 1209 (Given - Provider: Simi Pagan RN - Comment: med not up from pharmacy at scheduled time) 0048 (Given - Provider: Naz Torres RN)0820 (Given - Provider: Simi Pagan RN) 0245 (Given - Provider: Naz Torres RN)1022 (Given - Provider: Daniella Ennis RN)2100 (Due) docusate sodium (COLACE) capsule 100 mg 100 mg, Oral, 2 TIMES DAILY, First dose (after last modification) on 05/05/21 at 0900, Do not crush or break., 1022 (Given - Provider: Daniella Ennis RN)2100 (Due) enoxaparin (LOVENOX) injection 60 mg 60 mg, SubCUTAneous, DAILY, First dose on Isabelle 05/03/21 at 0115, 0114 (Given - Provider: Julia Hansen RN) 0048 (Given - Provider: Naz Torres RN) 0245 (Given - Provider: Naz Torres RN) ferrous sulfate (IRON 325) tablet 325 mg 325 mg, Oral, 2 TIMES DAILY WITH MEALS, First dose on Fri05/02/21 at 1700, Start if Hgb less than 10., 0755 (Given - Provider: Simi Pagan RN)2133 (Given - Provider: Naz Torres RN) 0817 (Given - Provider: Simi Pagan RN)1999 (Not Given - Provider: Naz Torres RN - Reason: Patient/family refused) 1022 (Given - Provider: Daniella Ennis RN)1700 (Due) ibuprofen (ADVIL;MOTRIN) tablet 600 mg 600 mg, Oral, EVERY 6 HOURS, First dose on Isabelle 05/03/21 at 1330, Do not crush or chew., 1720 (Given - Provider: Simi Pagan RN) 0049 (Given - Provider: Naz Torres RN)0649 (Given - Provider: Naz Torres RN)1313 (Given - Provider: Simi Pagan RN)1330 (Due)1948 (Given - Provider: Naz Torres RN) 0245 (Given - Provider: Naz Torres RN)1022 (Given - Provider: Daniella Ennis RN)1330 (Due)1930 (Due) ketorolac (TORADOL) injection 30 mg () 30 mg, IntraVENous, EVERY 6 HOURS, First dose on Fri05/02/21 at 1600, For 4 doses, Do not administer for more than 5 days., 0320 (Given - Provider: Julia Hansen RN)0400 (Due)1042 (Given - Provider: Simi Pagan RN) measles, mumps & rubella vaccine (MMR) injection 0.5 mL 0.5 mL, SubCUTAneous, PRIOR TO DISCHARGE, Starting on Fri05/02/21 at 1540, For 1 dose, Administer if Rubella non-immune or equivocal, vitamin 27-1 MG tablet 1 tablet 1 tablet, Oral, DAILY, First dose on Fri05/02/21 at 1600, Begin when normal bowel activity resumes., 0900 (Due) 0900 (Due) 0900 (Due) sodium chloride flush 0.9 % injection 10 mL 10 mL, IntraVENous, EVERY 12 HOURS SCHEDULED (2 times per day), First dose on Fri05/02/21 at 2100, 1441 (Given - Provider: Joe Senior)2099 (Due) 0900 (Due)2099 (Due) 09 (Due)2099 (Due) iqamsiz-xlofje-aygvd pertussis (BOOSTRIX) injection 0.5 mL 0.5 mL, IntraMUSCular, PRIOR TO DISCHARGE, Starting on Fri05/02/21 at 1540, For 1 dose, If not previously administered during at 27-36 weeks as recommended by CDC., PRN Medication Order 05/03/2021 05/04/2021 05/05/2021 0.9 % sodium chloride infusion 25 mL, IntraVENous, at 100 mL/hr, PRN, If patient receiving piggyback infusions without ordered maintenance IV fluids or with frequent/long duration piggyback infusions, Starting on Fri05/02/21 at 1540, Administer at the same rate as the piggyback being infused., acetaminophen (TYLENOL) tablet 650 mg 650 mg, Oral, EVERY 6 HOURS PRN, Pain Mild (1-3), Starting on Fri05/02/21 at 1540, Maximum dose of acetaminophen is 4000 mg from all sources in 24 hours., 0755 (Given - Provider: Simi Pagan RN)1442 (Given - Provider: Joe Senior)2132 (Given - Provider: Naz Torres RN) 0649 (Given - Provider: Naz Torres RN)1313 (Given - Provider: Simi Pagan RN)1948 (Given - Provider: Naz Torres RN) 0245 (Given - Provider: Naz Torres RN)1022 (Given - Provider: Daniella Ennis RN) diphenhydrAMINE (BENADRYL) injection 25 mg 25 mg, IntraVENous, EVERY 6 HOURS PRN, Itching, Hives, Starting on Fri05/02/21 at 1540, docusate sodium (COLACE) capsule 100 mg (CANCELED) 100 mg, Oral, 2 TIMES DAILY PRN, Constipation, Starting on Fri05/02/21 at 1540, Do not crush or break., 0755 (Given - Provider: Simi Pagan RN)2133 (Given - Provider: Naz Torres RN) 0817 (Given - Provider: Simi Pagan RN)1948 (Given - Provider: Naz Torres RN) HYDROmorphone (DILAUDID) injection 0.25 mg(Linked Group 1) 0.25 mg, IntraVENous, EVERY 3 HOURS PRN, Pain Moderate (4-6), Starting on Fri05/02/21 at 1540, If oral and IV narcotics ordered, use oral first and only use IV if oral is ineffective or cannot take oral. Do Not give oral and IV within 1 hour of each other unless specifically ordered., HYDROmorphone (DILAUDID) injection 0.5 mg(Linked Group 1) 0.5 mg, IntraVENous, EVERY 3 HOURS PRN, Pain Severe (7-10), Starting on Fri05/02/21 at 1540, If oral and IV narcotics ordered, use oral first and only use IV if oral is ineffective or cannot take oral. Do Not give oral and IV within 1 hour of each other unless specifically ordered., lansinoh lanolin ointment Topical, EVERY 1 HOUR PRN, Dry Skin, nipple discomfort, Starting on Fri05/02/21 at 1540, ondansetron (ZOFRAN) injection 4 mg 4 mg, IntraVENous, EVERY 6 HOURS PRN, Nausea, Starting on Fri05/02/21 at 1540, 0605 (Given - Provider: Julia Hansen RN)1442 (Given - Provider: Joe Senior) oxyCODONE (ROXICODONE) immediate release tablet 10 mg(Linked Group 2) 10 mg, Oral, EVERY 4 HOURS PRN, Pain Severe (7-10), Starting on Fri05/02/21 at 1540, 0817 (See Alternative - Provider: Simi Pagan RN)1313 (See Alternative - Provider: Simi Pagan RN) oxyCODONE (ROXICODONE) immediate release tablet 5 mg(Linked Group 2) 5 mg, Oral, EVERY 4 HOURS PRN, Pain Moderate (4-6), Starting on Fri05/02/21 at 1540, 0817 (Given - Provider: Simi Pagan RN)1313 (Given - Provider: Simi Pagan RN) simethicone (MYLICON) chewable tablet 80 mg 80 mg, Oral, EVERY 6 HOURS PRN, Cramping, Flatulence, Starting on Fri05/02/21 at 1540, sodium chloride flush 0.9 % injection 10 mL 10 mL, IntraVENous, PRN, Line Care, Starting on Fri05/02/21 at 1540, After every IV line use, Linked Groups Order Group 1: HYDROmorphone (DILAUDID) injection 0.25 mgJump to med 0.25 mg, IntraVENous, EVERY 3 HOURS PRN, Pain Moderate (4-6), Starting on Fri05/02/21 at 1540
If oral and IV narcotics ordered, use oral first and only use IV if oral is ineffective or cannot take oral. Do Not give oral and IV within 1 hour of each other unless specifically ordered.
Or HYDROmorphone (DILAUDID) injection 0.5 mgJump to med 0.5 mg, IntraVENous, EVERY 3 HOURS PRN, Pain Severe (7-10), Starting on Fri05/02/21 at 1540
If oral and IV narcotics ordered, use oral first and only use IV if oral is ineffective or cannot take oral. Do Not give oral and IV within 1 hour of each other unless specifically ordered.
Group 2: oxyCODONE (ROXICODONE) immediate release tablet 5 mgJump to med 5 mg, Oral, EVERY 4 HOURS PRN, Pain Moderate (4-6), Starting on Fri05/02/21 at 1540, Or oxyCODONE (ROXICODONE) immediate release tablet 10 mgJump to med 10 mg, Oral, EVERY 4 HOURS PRN, Pain Severe (7-10), Starting on Fri05/02/21 at 1540, Scheduled Medication Order 05/07/2021 05/08/2021 05/09/2021 0.9 % sodium chloride bolus (COMPLETED) 1,779 mL (30 mL/kg 59.3 kg [place] weight), IntraVENous, at 882.1 mL/hr, Administer over 121 Minutes, ONCE, On Fri05/07/21 at 0230, For 1 dose 0245 (New Bag - Provider: Sergey Hamilton RN)0432 (Stopped - Provider: Nyasia Armas RN) acetaminophen (TYLENOL) tablet 1,000 mg (COMPLETED) 1,000 mg, Oral, ONCE, On Fri05/07/21 at 1245, For 1 dose, Maximum dose of acetaminophen is 4000 mg from all sources in 24 hours. 1305 (Given - Provider: Oma Moctezuma RN) acetaZOLAMIDE (DIAMOX) extended release capsule 500 mg 500 mg, Oral, EVERY 12 HOURS SCHEDULED (2 times per day), First dose on Fri05/07/21 at 2100 2100 (Given - Provider: Colton Dalton RN) 0944 (Given - Provider: Chana Mosley RN)2106 (Given - Provider: Colton Dalton RN) 0915 (Given - Provider: Sophia Candelario RN)2100 (Due) amoxicillin-clavulanate (AUGMENTIN) 875-125 MG per tablet 1 tablet 1 tablet, Oral, EVERY 12 HOURS SCHEDULED (2 times per day), First dose on Fri05/08/21 at 2100 2106 (Given - Provider: Colton Dalton RN) 0916 (Given - Provider: Sophia Candelario RN)2100 (Due) clindamycin (CLEOCIN) 900 mg in dextrose 5 % 50 mL IVPB (CANCELED) 900 mg, IntraVENous, EVERY 8 HOURS, First dose on Fri05/07/21 at 1245, Until Discontinued 1301 (New Bag - Provider: Oma Moctezuma RN)1348 (Stopped - Provider: Sophia Sullivan RN)2100 (New Bag - Provider: Colton Dalton RN)2144 (Stopped - Provider: Colton Dalton RN) 0518 (New Bag - Provider: Colton Dalton RN)0656 (Stopped - Provider: Chana Mosley RN) enoxaparin (LOVENOX) injection 40 mg 40 mg, SubCUTAneous, DAILY, First dose on Fri05/07/21 at 1945, 2246 (Not Given - Provider: Colton Dalton RN - Reason: Patient/family refused - Comment: patient prefers to wait until am) 0944 (Not Given - Provider: Chana Mosley RN - Reason: Patient/family refused - Comment: up and walking) 0916 (Given - Provider: Sophia Candelario, RN) ferrous sulfate (IRON 325) tablet 325 mg 325 mg, Oral, 2 TIMES DAILY WITH MEALS, First dose on Fri05/07/21 at 1700, Start if Hgb less than 10., 1822 (Given - Provider: Wendy Valenzuela, RN) 0944 (Given - Provider: Chana Mosley, DELPHINE)1717 (Given - Provider: Chana Mosley, DELPHINE) 0915 (Given - Provider: Sophia Candealrio, RN)1700 (Due) gentamicin (GARAMYCIN) 420 mg in dextrose 5 % 250 mL IVPB (CANCELED) 420 mg, IntraVENous, EVERY 24 HOURS, First dose on Fri05/07/21 at 1245, Until Discontinued 1354 (New Bag - Provider: Sophia Sullivan RN)1530 (Stopped - Provider: Qing Wilkinson, RN) 1201 (New Bag - Provider: Chana Mosley RN)1325 (Stopped - Provider: Chana Mosley RN) lactated ringers bolus (COMPLETED) 1,000 mL, IntraVENous, at 495.9 mL/hr, Administer over 121 Minutes, ONCE, On Fri05/07/21 at 1245, For 1 dose 1301 (New Bag - Provider: Oma Moctezuma RN)1524 (Stopped - Provider: Qing Wilkinson, DELPHINE) ondansetron (ZOFRAN) injection 4 mg (COMPLETED) 4 mg, IntraVENous, ONCE, On Fri05/07/21 at 0400, For 1 dose 0350 (Given - Provider: Nyasia Armas RN) piperacillin-tazobactam (ZOSYN) 4500 mg in dextrose 100 mL IVPB (premix) (COMPLETED) 4,500 mg, IntraVENous, ONCE, 1 dose, On Fri05/07/21 at 0345, P[employer] approved renal dose adjustment: Zopsyn was adjusted per [employer] policy based on current renal function ( per non-adjusted CrCl >40 ) Date of initial order was on 05/07 Please leave I-vent open for follow-up to ensure this dosing regimen remains appropriate 0344 (New Bag - Provider: Nyasia Armas RN)0424 (Stopped - Provider: Nyasia Armas RN) vitamin 27-1 MG tablet 1 tablet 1 tablet, Oral, DAILY, First dose on Fri05/07/21 at 1800, Begin when normal bowel activity resumes., 2100 (Given - Provider: Colton Dalton RN) 0944 (Given - Provider: Chana Mosley, DELPHINE) 0915 (Given - Provider: Sophia Candelario, DELPHINE) sodium chloride flush 0.9 % injection 10 mL 10 mL, IntraVENous, EVERY 12 HOURS SCHEDULED (2 times per day), First dose on Fri05/07/21 at 2100, 2246 (Not Given - Provider: Colton Dalton RN - Reason: IV Fluid Infusing) 0932 (Not Given - Provider: Chana Mosley RN - Reason: Other)210 (Given - Provider: Colton Dalton RN) 0915 (Given - Provider: Sophia Candelario RN)2100 (Due) sodium chloride flush 0.9 % injection 5-40 mL 5-40 mL, IntraVENous, EVERY 12 HOURS SCHEDULED (2 times per day), First dose on Fri05/07/21 at 0900, For Line Patency: Peripheral IV = 5 mL; Midline or Central Line = 10 mL/lumen. If following IV push medication, administer flush at same rate as the IV push. Flush volume is determined by type of infusion therapy being given. For non-viscous solutions use: Peripheral IV = 5 mL Midline or Central Line = 10 mL/lumen For viscous solutions (i.e. blood components, parenteral nutrition, contrast media, or after obtaining blood sample) use: Peripheral IV = 10 mL Midline or Central Line = 20 mL/lumen 1531 (Not Given - Provider: Qing Wilkinson RN - Reason: IV Fluid Infusing)2247 (Not Given - Provider: Colton Dalton RN - Reason: IV Fluid Infusing) 0944 (Given - Provider: Chana Mosley RN)220 (Not Given - Provider: Colton Dalton RN - Reason: Other) 0915 (Given - Provider: Sophia Candelario RN)2100 (Due) vancomycin (VANCOCIN) 2,250 mg in dextrose 5 % 500 mL IVPB (COMPLETED) 2,250 mg (rounded from 2,358 mg = 20 mg/kg 117.9 kg), IntraVENous, at 166.7 mL/hr, Administer over 180 Minutes, ONCE, On Fri05/07/21 at 0345, For 1 dose 0423 (New Bag - Provider: Nyasia Armas, RN)0744 (Stopped - Provider: Sophia Sullivan RN) Continuous Medication Order 05/07/2021 05/08/2021 05/09/2021 lactated ringers infusion (CANCELED) IntraVENous, at 125 mL/hr, CONTINUOUS, Starting on Fri05/07/21 at 0645 1524 (New Bag - Provider: Qing Wilkinson, DELPHINE) 0646 (Stopped - Provider: Colton Dalton RN) PRN Medication Order 05/07/2021 05/08/2021 05/09/2021 0.9 % sodium chloride infusion 25 mL, IntraVENous, at 100 mL/hr, PRN, If patient receiving piggyback infusions without ordered maintenance IV fluids or with frequent/long duration piggyback infusions, Starting on Fri05/07/21 at 0214, Administer at the same rate as the piggyback being infused. 0.9 % sodium chloride infusion 25 mL, IntraVENous, at 100 mL/hr, PRN, If patient receiving piggyback infusions without ordered maintenance IV fluids or with frequent/long duration piggyback infusions, Starting on Fri05/07/21 at 1239, Administer at the same rate as the piggyback being infused., docusate sodium (COLACE) capsule 100 mg 100 mg, Oral, 2 TIMES DAILY PRN, Constipation, Starting on Fri05/07/21 at 1239, Do not crush or break., ibuprofen (ADVIL;MOTRIN) tablet 600 mg 600 mg, Oral, EVERY 6 HOURS PRN, Pain Mild (1-3), Starting on Fri05/07/21 at 1545, Do not crush or chew., 2100 (Given - Provider: Colton Dalton RN) 1202 (Given - Provider: Chana Mosley RN)2105 (Given - Provider: Colton Dalton, DELPHINE) lansinoh lanolin ointment Topical, EVERY 1 HOUR PRN, Dry Skin, nipple discomfort, Starting on Fri05/07/21 at 1239, ondansetron (ZOFRAN) injection 4 mg 4 mg, IntraVENous, EVERY 6 HOURS PRN, Nausea, Starting on Fri05/07/21 at 1239, simethicone (MYLICON) chewable tablet 80 mg 80 mg, Oral, EVERY 6 HOURS PRN, Cramping, Flatulence, Starting on Fri05/07/21 at 1239, sodium chloride flush 0.9 % injection 10 mL 10 mL, IntraVENous, PRN, Line Care, Starting on Fri05/07/21 at 1239, After every IV line use, sodium chloride flush 0.9 % injection 5-40 mL 5-40 mL, IntraVENous, PRN, Line Care, After every IV line use, Starting on Fri05/07/21 at 0214, For Line Patency: Peripheral IV = 5 mL; Midline or Central Line = 10 mL/lumen. If following IV push medication, administer flush at same rate as the IV push. Flush volume is determined by type of infusion therapy being given. For non-viscous solutions use: Peripheral IV = 5 mL Midline or Central Line = 10 mL/lumen For viscous solutions (i.e. blood components, parenteral nutrition, contrast media, or after obtaining blood sample) use: Peripheral IV = 10 mL Midline or Central Line = 20 mL/lumen Care Teams (unrecognized sec tion and content) Gluten Settling Tender Relationship Specialty Start Date End Date Bryant Grimm MD PCP - General Family Medicine 02/18/20 Gluten Settling Tender Relationship Specialty Start Date End Date Bryant Grimm MD PCP - General [facility] Medicine 02/18/20 Gluten Settling Tender Relationship Specialty Start Date End Date Brynat Grimm MD PCP - General [facility] Medicine 02/18/20 Gluten Settling Tender Relationship Specialty Start Date End Date Bryant Grimm MD [address] [place] [address] PCP - General Family Practice 12/14/14 Gluten Settling Tender Relationship Specialty Start Date End Date Bryant Grimm MD [address] [place] [id number] PCP - General Family Practice 12/14/14 Gluten Settling Tender Relationship Specialty Start Date End Date Bryant Grimm MD [address] [place] [address] PCP - General Family Practice 12/14/14 Gluten Settling Tender Relationship Specialty Start Date End Date Bryant Grimm MD [address] [facility] [place] [address] PCP - General Family Practice 12/14/14 Gluten Settling Tender Relationship Specialty Start Date End Date Bryant Grimm MD [facility] [place] [address] PCP - General Family Practice 12/14/14 Gluten Settling Tender Relationship Specialty Start Date End Date Bryant Grimm MD [address] [place] [address], [place] [address] PCP - General Family Practice 12/14/14 Gluten Settling Tender Relationship Specialty Start Date End Date Bryant Grimm MD [address] [place] [address] [place] [address] PCP - General Family Practice 12/14/14 Gluten Settling Tender Relationship Specialty Start Date End Date Bryant Grimm MD [address] [place] [address], [place] [address] PCP - General Family Medicine 12/14/14 Gluten Settling Tender Relationship Specialty Start Date End Date Bryant Grimm MD [address] [place] [address] [place] [address] PCP - General Family Medicine 12/14/14 Gluten Settling Tender Relationship Specialty Start Date End Date Bryant Grimm MD [address] [place] [address], [place] [address] PCP - General Family Medicine 12/14/14 Gluten Settling Tender Relationship Specialty Start Date End Date Bryant Grimm MD [address] [place] [address], [place] [address] PCP - General Family Medicine 12/14/14 Gluten Settling Tender Relationship Specialty Start Date End Date Bryant Grimm MD [address] [place] [address], [place] [address] PCP - General Family Medicine 12/14/14 Gluten Settling Tender Relationship Specialty Start Date End Date Bryant Grimm MD [address] [place] [address] PCP - General Family Medicine 12/14/14 Gluten Settling Tender Relationship Specialty Start Date End Date Bryant Grimm MD [address] [place] [address] PCP - General Family Medicine 12/14/14 Gluten Settling Tender Relationship Specialty Start Date End Date Bryant Grimm MD [address] [place] [address] PCP - General Family Medicine 12/14/14 Gluten Settling Tender Relationship Specialty Start Date End Date Bryant Grimm MD [address] [place] [address] PCP - General Family Medicine 12/14/14 Gluten Settling Tender Relationship Specialty Start Date End Date Bryant Grimm MD [address] [place] [address] PCP - General Family Medicine 12/14/14 Gluten Settling Tender Relationship Specialty Start Date End Date Bryant Grimm MD [address] [place] [address] PCP - General Family Medicine 12/14/14 Gluten Settling Tender Relationship Specialty Start Date End Date Bryant Grimm MD [address] [place] [address] PCP - General Family Medicine 12/14/14 Gluten Settling Tender Relationship Specialty Start Date End Date Bryant Grimm MD [address] [place] [address] PCP - General Family Medicine 12/14/14 Gluten Settling Tender Relationship Specialty Start Date End Date Bryant Grimm MD [address] [place] [address] PCP - General Family Medicine 12/14/14 Gluten Settling Tender Relationship Specialty Start Date End Date Bryant Grimm MD [address] [place] [address] PCP - General Family Medicine 12/14/14 Gluten Settling Tender Relationship Specialty Start Date End Date Bryant Grimm MD [address] [place] [address] PCP - General Family Medicine 12/14/14 Gluten Settling Tender Relationship Specialty Start Date End Date Bryant Grimm MD [address] [place] [address] PCP - General Family Medicine 12/14/14 Gluten Settling Tender Relationship Specialty Start Date End Date Bryant Grimm MD [address] [place] [address] PCP - General Family Medicine 12/14/14 Gluten Settling Tender Relationship Specialty Start Date End Date Bryant Grimm MD [address] [place] [address] PCP - General Family Medicine 12/14/14 Gluten Settling Tender Relationship Specialty Start Date End Date Bryant Grimm MD [address] [place] [address] PCP - General Family Medicine 12/14/14 Team Status: Active Member Role Status Dates Dr. Nancy Yuen MD Family Provider Active Dr. Bryant Grimm MD Primary Care Provider Active Team Status: Inactive Member Role Status Dates Dr. Bryant Grimm MD Primary Care Provider Active Janiya Tanner Attending Provider Active Gluten Settling Tender Relationship Specialty Start Date End Date Bryant Grimm MD [address] [facility] [place] [address] PCP - General Family Medicine 12/14/14 Gluten Settling Tender Relationship Specialty Start Date End Date Bryant Grimm MD [address] [place] [address] PCP - General Family Medicine 12/14/14 Gluten Settling Tender Relationship Specialty Start Date End Date Bryant Grimm MD [address] [place] [address] PCP - General Family Medicine 12/14/14 Gluten Settling Tender Relationship Specialty Start Date End Date Bryant Grimm MD [address] [place] [address] PCP - General Family Medicine 12/14/14 Gluten Settling Tender Relationship Specialty Start Date End Date Bryant Grimm MD [address] [place] [address] PCP - General Family Medicine 12/14/14 Gluten Settling Tender Relationship Specialty Start Date End Date Bryant Grimm MD [address] [place] [address] PCP - General Family Medicine 12/14/14 Gluten Settling Tender Relationship Specialty Start Date End Date Bryant Grimm MD [address] [place] [address] PCP - General Family Medicine 12/14/14 Gluten Settling Tender Relationship Specialty Start Date End Date Bryant Grimm MD [address] [facility] [place] [address] PCP - General Family Medicine 12/14/14 Gluten Settling Tender Relationship Specialty Start Date End Date Bryant Grimm MD [address] [place] [place] [address] PCP - General Family Medicine 12/14/14 Gluten Settling Tender Relationship Specialty Start Date End Date Bryant Grimm MD [address] [place] [address] PCP - General Family Medicine 12/14/14 Gluten Settling Tender Relationship Specialty Start Date End Date Bryant Grimm MD [address] [place] [address] PCP - General Family Medicine 12/14/14 Gluten Settling Tender Relationship Specialty Start Date End Date Bryant Grimm MD [address] [facility] [place] [address] PCP - General Family Medicine 12/14/14 Hetal Valenzuela APRN.CRITICAL CARE EDUCATOR [address] [place] [address] [employer] Clerk [employer] [facility] 01/24/24 Lara Jimenez PA-C [address] [facility] [place] [address] Parts Clerk [employer] Family Medicine 01/24/24 Gluten Settling Tender Relationship Specialty Start Date End Date Bryant Grimm MD [address] [place] [place] [address] PCP - General Family Medicine 12/14/14 Hetal Valenzuela APRN.CRITICAL CARE EDUCATOR [address] [place] [address] Parts Clerk [employer] Family [facility] 01/24/24 Lara Jimenez PA-C [address] [place] [address] Parts Clerk [employer] Family Medicine 01/24/24 Gluten Settling Tender Relationship Specialty Start Date End Date Bryant Grimm MD [address] [place] [address] PCP - General Family Medicine 12/14/14 Hetal Valenzuela, MATY.CRITICAL CARE EDUCATOR [address] [place] [address] Parts Clerk [employer] Family [facility] 01/24/24 Lara Jimenez PA-C [address] [place] [address] Parts Clerk [employer] Family [facility] 01/24/24 Gluten Settling Tender Relationship Specialty Start Date End Date Bryant Grimm MD [address] [place] [address] PCP - General Family Medicine 12/14/14 Hetal Valenzuela, PROFESSIONAL SKATER.CRITICAL CARE EDUCATOR [address] [place] [address] Parts Clerk [employer] Family [facility] 01/24/24 Lara Jimenez PA-C [address] [place] [address] Parts Clerk [employer] Family Medicine 01/24/24 Gluten Settling Tender Relationship Specialty Start Date End Date Bryatn Grimm MD [address] [place] [address] PCP - General Family Medicine 12/14/14 Hetal Valenzuela APRN.CRITICAL CARE EDUCATOR [address] [place] [address] Parts Clerk [employer] Family Medicine 01/24/24 Lara Jimenez PA-C [address] [place] [address] Parts Clerk [employer] Family Medicine 01/24/24 Gluten Settling Tender Relationship Specialty Start Date End Date Bryant Grimm MD [address] [place] [address] PCP - General Family Medicine 12/14/14 Hetal Valenzuela APRN.CRITICAL CARE EDUCATOR [address] [place] [address] Parts Clerk [employer] Family Medicine 01/24/24 Lara Jimenez PA-C [address] [place] [address] [facility] 01/24/24 Gluten Settling Tender Relationship Specialty Start Date End Date Bryant Grimm MD [address] [place] [address] PCP - General Family Medicine 12/14/14 Hetal Valenzuela, PROFESSIONAL SKATER.CRITICAL CARE EDUCATOR [address] [place] [address] Parts Clerk [employer] Family Medicine 01/24/24 Lara Jimenez PA-C [address] [place] [address] Parts Clerk [employer] Maintenance Family Medicine 01/24/24 Gluten Settling Tender Relationship Specialty Start Date End Date Bryant Grimm MD [address] [facility] [place] [address] PCP - General Family Medicine 12/14/14 Hetal Valenzuela, MATY.CRITICAL CARE EDUCATOR [address] [facility] [place] [address] Parts Clerk Plant Maintenance Family Medicine 01/24/24 Lara Jimenez PA-C [address] [place] [place] [address] Parts Clerk Plant Maintenance Family Medicine 01/24/24 Gluten Settling Tender Relationship Specialty Start Date End Date Bryant Grimm MD [address] [place] [address] PCP - General Family Medicine 12/14/14 Hetal Valenzuela, PROFESSIONAL SKATER.CRITICAL CARE EDUCATOR [address] [facility] [place] [address] Parts Clerk [employer] Maintenance Family Medicine 01/24/24 Lara Jimenez PA-C [address] [place] [place] [address] Parts Clerk [employer] Maintenance Family Medicine 01/24/24 Gluten Settling Tender Relationship Specialty Start Date End Date Bryant Grimm MD [address] [place] [place] [address] PCP - General Family Medicine 12/14/14 Hetal Valenzuela PROFESSIONAL SKATER.CRITICAL CARE EDUCATOR [address] [facility] [place] [address] Parts Clerk [employer] Maintenance Family Medicine 01/24/24 Lara Jimenez PA-C [address] [place] [address] Parts Clerk [employer] Maintenance Family Medicine 01/24/24 Gluten Settling Tender Relationship Specialty Start Date End Date Bryant Grimm MD [address] [place] [address] PCP - General Family Medicine 12/14/14 Hetal Valenzuela APRN.CRITICAL CARE EDUCATOR [address] [place] [address] Parts Clerk [employer] Family Medicine 01/24/24 Lara Jimenez PA-C [address] [place] [address] [facility] Clerk [facility] 01/24/24 Gluten Settling Tender Relationship Specialty Start Date End Date Bryant Grimm MD [address] [place] [address] PCP - General Family Medicine 12/14/14 Hetal Valenzuela APRN.CRITICAL CARE EDUCATOR [address] [place] [address] Parts Clerk [employer] Family Medicine 01/24/24 Lara Jimenez PA-C [address] [place] [address] Parts Clerk [employer] Maintenance Family Medicine 01/24/24 Gluten Settling Tender Relationship Specialty Start Date End Date Bryant Grimm MD [address] [place] [address] PCP - General Family Medicine 12/14/14 Hetal Valenzuela, MATY.CRITICAL CARE EDUCATOR [address] [place] [address] Parts Clerk [employer] Family Medicine 01/24/24 Lara Jimenez PA-C [address] [place] [address] Parts Clerk [employer] Maintenance Family Medicine 01/24/24 Gluten Settling Tender Relationship Specialty Start Date End Date Bryant Grimm MD [address] [facility] [place] [address] PCP - General Family Medicine 12/14/14 Hetal Valenzuela APRN.CRITICAL CARE EDUCATOR [address] [place] [address] Parts Clerk [employer] Family Medicine 01/24/24 Lara Jimenez PA-C [address] [place] [address] Parts Clerk Plant Maintenance Family [facility] 01/24/24 Gluten Settling Tender Relationship Specialty Start Date End Date Bryant Grimm MD [address] [facility] [place] [address] PCP - General Family Medicine 12/14/14 Hetal Valenzuela, MATY.CRITICAL CARE EDUCATOR [address] [place] [address] Parts Clerk [employer] Family Medicine 07/19/24 Lara Jimenez PA-C [address] [place] [address] Parts Clerk [employer] Maintenance Family Medicine 07/19/24 Gluten Settling Tender Relationship Specialty Start Date End Date Bryant Grimm MD [address] [place] [place] [address] PCP - General Family Medicine 12/14/14 Hetal Valenzuela, PROFESSIONAL SKATER.CRITICAL CARE EDUCATOR [address] [place] [address] Parts Clerk [employer] Family [facility] 07/19/24 Lara Jimenez PA-C [address] [place] [address] Parts Clerk [employer] Maintenance Family Medicine 07/19/24 Gluten Settling Tender Relationship Specialty Start Date End Date Bryant Grimm MD [address] [place] [address] PCP - General Family Medicine 12/14/14 Hetal Valenzuela APRN.CRITICAL CARE EDUCATOR [address] [place] [address] Parts Clerk [employer] [facility] 07/19/24 Lara Jimenez PA-C [address] [place] [address] Parts Clerk [employer] [facility] 07/19/24 Gluten Settling Tender Relationship Specialty Start Date End Date Bryant Grimm MD [address] [place] [address] PCP - General Family Medicine 12/14/14 Hetal Valenzuela APRN.CRITICAL CARE EDUCATOR [address] [place] [address] Parts Clerk [employer] Family Medicine 01/24/24 07/04/24 Lara Jimenez PA-C [address] [place] [address] Parts Clerk [employer] Family [facility] 01/24/24 07/18/24 Hetal Valenzuela APRN.CRITICAL CARE EDUCATOR [address] [place] [address] Parts Clerk [employer] [facility] 07/19/24 Lara Jimenez PA-C [address] [place] [address] Parts Clerk [employer] [facility] 07/19/24 Gluten Settling Tender Relationship Specialty Start Date End Date Bryant Grimm MD [address] [place] [address] PCP - General Family Medicine 12/14/14 Hetal Valenzuela APRN.CRITICAL CARE EDUCATOR [address] [place] [address] Parts Clerk [employer] [facility] 07/19/24 Lara Jimenez PA-C [address] [place] [address] Parts Clerk [employer] [facility] 07/19/24 Gluten Settling Tender Relationship Specialty Start Date End Date Bryant Grimm MD [address] [place] [address] PCP - General Family Medicine 12/14/14 Hetal Valenzuela APRN.CRITICAL CARE EDUCATOR [address] [place] [address] Parts Clerk [employer] [facility] 07/19/24 Lara Jimenez PA-C [address] [place] [address] Parts Clerk [employer] [facility] 07/19/24 Gluten Settling Tender Relationship Specialty Start Date End Date Bryant Grimm MD [address] [place] [address] PCP - General Family Medicine 12/14/14 Hetal Valenzuela APRN.CRITICAL CARE EDUCATOR [address] [facility] [place], [place] [address] [facility] 07/19/24 Lara Jimenez PA-C [address] [facility], [place] [address] [facility] 07/19/24 Gluten Settling Tender Relationship Specialty Start Date End Date Bryant Grimm MD [address] [place], [place] [address] PCP - General Family Medicine 12/14/14 Hetal Valenzuela APRN.CRITICAL CARE EDUCATOR [address] [place] [address] [facility] 07/19/24 Lara Jimenez PA-C [facility]0 [facility], [place] [address] [facility] 07/19/24 Team Status: Active Member Role Status Dates Dr. Bryant Grimm MD Primary Care Provider Active Team Status: Inactive Member Role Status Dates Dr. Bryant Grimm MD Primary Care Provider Active Start: August 11, 2024 End: August 11, 2024 Dr. Hakeem Negrete DO Emergency Provider Activ e Start: August 11, 2024 End: August 11, 2024 Gluten Settling Tender Relationship Specialty Start Date End Date Bryant Grimm MD [address] [facility], [place] [address] PCP - General Family Medicine 12/14/14 Hetal Valenzuela APRN.CRITICAL CARE EDUCATOR [address] [place] [address] [facility] Medicine 07/19/24 Lara Jimenez PA-C [address] [place] [address] Parts Clerk [employer] Family Medicine 07/19/24 Gluten Settling Tender Relationship Specialty Start Date End Date Bryant Grimm MD [address] [place] [address] PCP - General Family Medicine 12/14/14 Hetal Valenzuela APRN.CRITICAL CARE EDUCATOR [address] [place] [address] Parts Clerk [employer] [facility] 07/19/24 Lara Jimenez PA-C [address] [place] [address] Parts Clerk [employer] [facility] 07/19/24 Gluten Settling Tender Relationship Specialty Start Date End Date Bryant Grimm MD [address] [place] [address] PCP - General Family Medicine 12/14/14 Hetal Valenzuela APRN.CRITICAL CARE EDUCATOR [address] [place] [address] [employer] Clerk [employer] [facility] 07/19/24 Lara Jimenez PA-C [address] [place] [address] Parts Clerk [employer] [facility] 07/19/24 Gluten Settling Tender Relationship Specialty Start Date End Date Bryant Grimm MD [address] [place] [address] PCP - General Family Medicine 12/14/14 Hetal Valenzuela APRN.CRITICAL CARE EDUCATOR [facility] [place], [place] [address] [phone] Parts Clerk [employer] Family [facility] 01/24/24 07/04/24 Lara Jimenez PA-C [address] [place] [address] Parts Clerk [employer] [facility] 01/24/24 07/18/24 Hetal Valenzuela APRN.CRITICAL CARE EDUCATOR [address] [place] [address] Parts Clerk [employer] [facility] 07/19/24 Lara Jimenez PA-C [address] [place] [address] [facility] 07/19/24 Gluten Settling Tender Relationship Specialty Start Date End Date Bryant Grimm MD [address] [place] [address] PCP - General Family Medicine 12/14/14 Hetal Valenzuela, MATY.CRITICAL CARE EDUCATOR [address] [place] [address] [facility] Family Medicine 07/19/24 Lara Jimenez PA-C [address] [place] [address] [facility] [facility]24 Gluten Settling Tender Relationship Specialty Start Date End Date Bryant Grimm MD [address] [place] [address] PCP - General Family Medicine 12/14/14 Hetal Valenzuela, MATY.CRITICAL CARE EDUCATOR [address] [place] [address] Parts Clerk Plant Maintenance Family Medicine 07/19/24 Lara Jimenez PA-C [address] [facility] [place] [address] Parts Clerk Plant Maintenance Family Medicine 07/19/24 Gluten Settling Tender Relationship Specialty Start Date End Date Bryant Grimm MD [address] [place] [place] [address] PCP - General Family Medicine 12/14/14 Hetal Valenzuela, MATY.CRITICAL CARE EDUCATOR [address] [place] [id number] Parts Clerk Plant Maintenance Family Medicine 07/19/24 Lara Jimenez PA-C [address] [place] [address] Parts Clerk Plant Maintenance Family Medicine 07/19/24 Gluten Settling Tender Relationship Specialty Start Date End Date Bryant Grimm MD [address] [place] [address] PCP - General Family Medicine 12/14/14 Hetal Valenzuela, PROFESSIONAL SKATER.CRITICAL CARE EDUCATOR [address] [place] [id number] Parts Clerk Plant Maintenance Family Medicine 07/19/24 Lara Jimenez PA-C [address] [place] [address] Parts Clerk Plant Maintenance Family Medicine 07/19/24 Gluten Settling Tender Relationship Specialty Start Date End Date Bryant Grimm MD [address] [place] [address] PCP - General Family Medicine 12/14/14 Hetal Valenzuela, PROFESSIONAL SKATER.CRITICAL CARE EDUCATOR [address] [place] [address] Parts Clerk Plant Maintenance Family Medicine 07/19/24 Lara Jimenez PA-C [address] [place] [address] Parts Clerk Plant Maintenance Family Medicine 07/19/24 Gluten Settling Tender Relationship Specialty Start Date End Date Bryant Grimm MD [address] [place] [address] PCP - General Family Medicine 12/14/14 Hetal Valenzuela, MATY.CRITICAL CARE EDUCATOR [address] [place] [address] Parts Clerk Plant Maintenance Family Medicine 07/19/24 Lara Jimenez PA-C [address] [place] [address] Parts Clerk Plant Maintenance Family Medicine 07/19/24 Gluten Settling Tender Relationship Specialty Start Date End Date Bryant Grimm MD [address] [place] [address] PCP - General Family Medicine 12/14/14 Hetal Valenzuela, MATY.CRITICAL CARE EDUCATOR [address] [place] [address] Parts Clerk Plant Maintenance Family Medicine 07/19/24 Lara Jimenez PA-C [address] [place] [address] Parts Clerk Plant Maintenance Family Medicine 07/19/24 INFORMATION SOURCE (unrecogn ized section and content) DATE CREATED AUTHOR 05/18/2021 [facility] DATE CREATED AUTHOR AUTHOR'S ORGANIZ ATION 06/26/2021 [facility] DATE CREATED AUTHOR AUTHOR'S ORGANIZ ATION 08/17/2024 [facility] DATE CREATED AUTHOR AUTHOR'S ORGANIZ ATION 12/23/2024 [facility] Source Comments (unrecognize d section and content) In the event this informatio n is protected by the Federal Confidentiality of Alcohol and Drug Abuse Patient Records regulations: The Federal rules restrict any use of the information to criminally investigate or prosecute any alcohol or drug abuse patient.[facility] the event this information is protected by the Federal Confidentiality of Alcohol and Drug Abuse Patient Records regulations: The Federal rules restrict any use of the information to criminally investigate or prosecute any alcohol or drug abuse patient.[facility] the event this information is protected by the Federal Confidentiality of Alcohol and Drug Abuse Patient Records regulations: The Federal rules restrict any use of the information to criminally investigate or prosecute any alcohol or drug abuse patient.[facility] Center[facility] the event this information is protected by the Federal Confidentiality of Alcohol and Drug Abuse Patient Records regulations: The Federal rules restrict any use of the information to criminally investigate or prosecute any alcohol or drug abuse patient.[facility] CenterIn the event this information is protected by the Federal Confidentiality of Alcohol and Drug Abuse Patient Records regulations: The Federal rules restrict any use of the information to criminally investigate or prosecute any alcohol or drug abuse patient.[facility] CenterIn the event this information is protected by the Federal Confidentiality of Alcohol and Drug Abuse Patient Records regulations: The Federal rules restrict any use of the information to criminally investigate or prosecute any alcohol or drug abuse patient.[facility] CenterIn the event this information is protected by the Federal Confidentiality of Alcohol and Drug Abuse Patient Records regulations: The Federal rules restrict any use of the information to criminally investigate or prosecute any alcohol or drug abuse patient.[facility] CenterIn the event this information is protected by the Federal Confidentiality of Alcohol and Drug Abuse Patient Records regulations: The Federal rules restrict any use of the information to criminally investigate or prosecute any alcohol or drug abuse patient.[facility] CenterIn the event this information is protected by the Federal Confidentiality of Alcohol and Drug Abuse Patient Records regulations: The Federal rules restrict any use of the information to criminally investigate or prosecute any alcohol or drug abuse patient.[facility] CenterIn the event this information is protected by the Federal Confidentiality of Alcohol and Drug Abuse Patient Records regulations: The Federal rules restrict any use of the information to criminally investigate or prosecute any alcohol or drug abuse patient.[facility] CenterIn the event this information is protected by the Federal Confidentiality of Alcohol and Drug Abuse Patient Records regulations: The Federal rules restrict any use of the information to criminally investigate or prosecute any alcohol or drug abuse patient.[facility] CenterIn the event this information is protected by the Federal Confidentiality of Alcohol and Drug Abuse Patient Records regulations: The Federal rules restrict any use of the information to criminally investigate or prosecute any alcohol or drug abuse patient.[facility] CenterIn the event this information is protected by the Federal Confidentiality of Alcohol and Drug Abuse Patient Records regulations: The Federal rules restrict any use of the information to criminally investigate or prosecute any alcohol or drug abuse patient.[facility] CenterIn the event this information is protected by the Federal Confidentiality of Alcohol and Drug Abuse Patient Records regulations: The Federal rules restrict any use of the information to criminally investigate or prosecute any alcohol or drug abuse patient.[facility] CenterIn the event this information is protected by the Federal Confidentiality of Alcohol and Drug Abuse Patient Records regulations: The Federal rules restrict any use of the information to criminally investigate or prosecute any alcohol or drug abuse patient.[facility] CenterIn the event this information is protected by the Federal Confidentiality of Alcohol and Drug Abuse Patient Records regulations: The Federal rules restrict any use of the information to criminally investigate or prosecute any alcohol or drug abuse patient.[facility] CenterIn the event this information is protected by the Federal Confidentiality of Alcohol and Drug Abuse Patient Records regulations: The Federal rules restrict any use of the information to criminally investigate or prosecute any alcohol or drug abuse patient.[facility] CenterIn the event this information is protected by the Federal Confidentiality of Alcohol and Drug Abuse Patient Records regulations: The Federal rules restrict any use of the information to criminally investigate or prosecute any alcohol or drug abuse patient.[facility] CenterIn the event this information is protected by the Federal Confidentiality of Alcohol and Drug Abuse Patient Records regulations: The Federal rules restrict any use of the information to criminally investigate or prosecute any alcohol or drug abuse patient.[facility] CenterIn the event this information is protected by the Federal Confidentiality of Alcohol and Drug Abuse Patient Records regulations: The Federal rules restrict any use of the information to criminally investigate or prosecute any alcohol or drug abuse patient.[facility] CenterIn the event this information is protected by the Federal Confidentiality of Alcohol and Drug Abuse Patient Records regulations: The Federal rules restrict any use of the information to criminally investigate or prosecute any alcohol or drug abuse patient.[facility] CenterIn the event this information is protected by the Federal Confidentiality of Alcohol and Drug Abuse Patient Records regulations: The Federal rules restrict any use of the information to criminally investigate or prosecute any alcohol or drug abuse patient.[facility] CenterIn the event this information is protected by the Federal Confidentiality of Alcohol and Drug Abuse Patient Records regulations: The Federal rules restrict any use of the information to criminally investigate or prosecute any alcohol or drug abuse patient.[facility] CenterIn the event this information is protected by the Federal Confidentiality of Alcohol and Drug Abuse Patient Records regulations: The Federal rules restrict any use of the information to criminally investigate or prosecute any alcohol or drug abuse patient.[facility] CenterIn the event this information is protected by the Federal Confidentiality of Alcohol and Drug Abuse Patient Records regulations: The Federal rules restrict any use of the information to criminally investigate or prosecute any alcohol or drug abuse patient.[facility] CenterIn the event this information is protected by the Federal Confidentiality of Alcohol and Drug Abuse Patient Records regulations: The Federal rules restrict any use of the information to criminally investigate or prosecute any alcohol or drug abuse patient.[facility] CenterIn the event this information is protected by the Federal Confidentiality of Alcohol and Drug Abuse Patient Records regulations: The Federal rules restrict any use of the information to criminally investigate or prosecute any alcohol or drug abuse patient.[facility] CenterIn the event this information is protected by the Federal Confidentiality of Alcohol and Drug Abuse Patient Records regulations: The Federal rules restrict any use of the information to criminally investigate or prosecute any alcohol or drug abuse patient.[facility] CenterIn the event this information is protected by the Federal Confidentiality of Alcohol and Drug Abuse Patient Records regulations: The Federal rules restrict any use of the information to criminally investigate or prosecute any alcohol or drug abuse patient.[facility] CenterIn the event this information is protected by the Federal Confidentiality of Alcohol and Drug Abuse Patient Records regulations: The Federal rules restrict any use of the information to criminally investigate or prosecute any alcohol or drug abuse patient.[facility] CenterIn the event this information is protected by the Federal Confidentiality of Alcohol and Drug Abuse Patient Records regulations: The Federal rules restrict any use of the information to criminally investigate or prosecute any alcohol or drug abuse patient.[facility] CenterIn the event this information is protected by the Federal Confidentiality of Alcohol and Drug Abuse Patient Records regulations: The Federal rules restrict any use of the information to criminally investigate or prosecute any alcohol or drug abuse patient.[facility] CenterIn the event this information is protected by the Federal Confidentiality of Alcohol and Drug Abuse Patient Records regulations: The Federal rules restrict any use of the information to criminally investigate or prosecute any alcohol or drug abuse patient.[facility] CenterIn the event this information is protected by the Federal Confidentiality of Alcohol and Drug Abuse Patient Records regulations: The Federal rules restrict any use of the information to criminally investigate or prosecute any alcohol or drug abuse patient.[facility] CenterIn the event this information is protected by the Federal Confidentiality of Alcohol and Drug Abuse Patient Records regulations: The Federal rules restrict any use of the information to criminally investigate or prosecute any alcohol or drug abuse patient.[facility] CenterIn the event this information is protected by the Federal Confidentiality of Alcohol and Drug Abuse Patient Records regulations: The Federal rules restrict any use of the information to criminally investigate or prosecute any alcohol or drug abuse patient.[facility] CenterIn the event this information is protected by the Federal Confidentiality of Alcohol and Drug Abuse Patient Records regulations: The Federal rules restrict any use of the information to criminally investigate or prosecute any alcohol or drug abuse patient.[facility] CenterIn the event this information is protected by the Federal Confidentiality of Alcohol and Drug Abuse Patient Records regulations: The Federal rules restrict any use of the information to criminally investigate or prosecute any alcohol or drug abuse patient.[facility] CenterIn the event this information is protected by the Federal Confidentiality of Alcohol and Drug Abuse Patient Records regulations: The Federal rules restrict any use of the information to criminally investigate or prosecute any alcohol or drug abuse patient.[facility] CenterIn the event this information is protected by the Federal Confidentiality of Alcohol and Drug Abuse Patient Records regulations: The Federal rules restrict any use of the information to criminally investigate or prosecute any alcohol or drug abuse patient.[facility] CenterIn the event this information is protected by the Federal Confidentiality of Alcohol and Drug Abuse Patient Records regulations: The Federal rules restrict any use of the information to criminally investigate or prosecute any alcohol or drug abuse patient.[facility] CenterIn the event this information is protected by the Federal Confidentiality of Alcohol and Drug Abuse Patient Records regulations: The Federal rules restrict any use of the information to criminally investigate or prosecute any alcohol or drug abuse patient.[facility] CenterIn the event this information is protected by the Federal Confidentiality of Alcohol and Drug Abuse Patient Records regulations: The Federal rules restrict any use of the information to criminally investigate or prosecute any alcohol or drug abuse patient.[facility] CenterIn the event this information is protected by the Federal Confidentiality of Alcohol and Drug Abuse Patient Records regulations: The Federal rules restrict any use of the information to criminally investigate or prosecute any alcohol or drug abuse patient.[facility] CenterIn the event this information is protected by the Federal Confidentiality of Alcohol and Drug Abuse Patient Records regulations: The Federal rules restrict any use of the information to criminally investigate or prosecute any alcohol or drug abuse patient.[facility] CenterIn the event this information is protected by the Federal Confidentiality of Alcohol and Drug Abuse Patient Records regulations: The Federal rules restrict any use of the information to criminally investigate or prosecute any alcohol or drug abuse patient.[facility] CenterIn the event this information is protected by the Federal Confidentiality of Alcohol and Drug Abuse Patient Records regulations: The Federal rules restrict any use of the information to criminally investigate or prosecute any alcohol or drug abuse patient.[facility] CenterIn the event this information is protected by the Federal Confidentiality of Alcohol and Drug Abuse Patient Records regulations: The Federal rules restrict any use of the information to criminally investigate or prosecute any alcohol or drug abuse patient.[facility] CenterIn the event this information is protected by the Federal Confidentiality of Alcohol and Drug Abuse Patient Records regulations: The Federal rules restrict any use of the information to criminally investigate or prosecute any alcohol or drug abuse patient.[facility] CenterIn the event this information is protected by the Federal Confidentiality of Alcohol and Drug Abuse Patient Records regulations: The Federal rules restrict any use of the information to criminally investigate or prosecute any alcohol or drug abuse patient.[facility] CenterIn the event this information is protected by the Federal Confidentiality of Alcohol and Drug Abuse Patient Records regulations: The Federal rules restrict any use of the information to criminally investigate or prosecute any alcohol or drug abuse patient.[facility] CenterIn the event this information is protected by the Federal Confidentiality of Alcohol and Drug Abuse Patient Records regulations: The Federal rules restrict any use of the information to criminally investigate or prosecute any alcohol or drug abuse patient.[facility] CenterIn the event this information is protected by the Federal Confidentiality of Alcohol and Drug Abuse Patient Records regulations: The Federal rules restrict any use of the information to criminally investigate or prosecute any alcohol or drug abuse patient.[facility] CenterIn the event this information is protected by the Federal Confidentiality of Alcohol and Drug Abuse Patient Records regulations: The Federal rules restrict any use of the information to criminally investigate or prosecute any alcohol or drug abuse patient.[facility] CenterIn the event this information is protected by the Federal Confidentiality of Alcohol and Drug Abuse Patient Records regulations: The Federal rules restrict any use of the information to criminally investigate or prosecute any alcohol or drug abuse patient.[facility] CenterIn the event this information is protected by the Federal Confidentiality of Alcohol and Drug Abuse Patient Records regulations: The Federal rules restrict any use of the information to criminally investigate or prosecute any alcohol or drug abuse patient.[facility] CenterIn the event this information is protected by the Federal Confidentiality of Alcohol and Drug Abuse Patient Records regulations: The Federal rules restrict any use of the information to criminally investigate or prosecute any alcohol or drug abuse patient.[facility] CenterIn the event this information is protected by the Federal Confidentiality of Alcohol and Drug Abuse Patient Records regulations: The Federal rules restrict any use of the information to criminally investigate or prosecute any alcohol or drug abuse patient.[facility] CenterIn the event this information is protected by the Federal Confidentiality of Alcohol and Drug Abuse Patient Records regulations: The Federal rules restrict any use of the information to criminally investigate or prosecute any alcohol or drug abuse patient.[facility] CenterIn the event this information is protected by the Federal Confidentiality of Alcohol and Drug Abuse Patient Records regulations: The Federal rules restrict any use of the information to criminally investigate or prosecute any alcohol or drug abuse patient.[facility] CenterIn the event this information is protected by the Federal Confidentiality of Alcohol and Drug Abuse Patient Records regulations: The Federal rules restrict any use of the information to criminally investigate or prosecute any alcohol or drug abuse patient.[facility] CenterIn the event this information is protected by the Federal Confidentiality of Alcohol and Drug Abuse Patient Records regulations: The Federal rules restrict any use of the information to criminally investigate or prosecute any alcohol or drug abuse patient.[facility] CenterIn the event this information is protected by the Federal Confidentiality of Alcohol and Drug Abuse Patient Records regulations: The Federal rules restrict any use of the information to criminally investigate or prosecute any alcohol or drug abuse patient.[facility] CenterIn the event this information is protected by the Federal Confidentiality of Alcohol and Drug Abuse Patient Records regulations: The Federal rules restrict any use of the information to criminally investigate or prosecute any alcohol or drug abuse patient.[facility] CenterIn the event this information is protected by the Federal Confidentiality of Alcohol and Drug Abuse Patient Records regulations: The Federal rules restrict any use of the information to criminally investigate or prosecute any alcohol or drug abuse patient.[facility] CenterIn the event this information is protected by the Federal Confidentiality of Alcohol and Drug Abuse Patient Records regulations: The Federal rules restrict any use of the information to criminally investigate or prosecute any alcohol or drug abuse patient.[facility] CenterIn the event this information is protected by the Federal Confidentiality of Alcohol and Drug Abuse Patient Records regulations: The Federal rules restrict any use of the information to criminally investigate or prosecute any alcohol or drug abuse patient.[facility] CenterIn the event this information is protected by the Federal Confidentiality of Alcohol and Drug Abuse Patient Records regulations: The Federal rules restrict any use of the information to criminally investigate or prosecute any alcohol or drug abuse patient.[facility] CenterIn the event this information is protected by the Federal Confidentiality of Alcohol and Drug Abuse Patient Records regulations: The Federal rules restrict any use of the information to criminally investigate or prosecute any alcohol or drug abuse patient.[facility] CenterIn the event this information is protected by the Federal Confidentiality of Alcohol and Drug Abuse Patient Records regulations: The Federal rules restrict any use of the information to criminally investigate or prosecute any alcohol or drug abuse patient.[facility] CenterIn the event this information is protected by the Federal Confidentiality of Alcohol and Drug Abuse Patient Records regulations: The Federal rules restrict any use of the information to criminally investigate or prosecute any alcohol or drug abuse patient.[facility] CenterIn the event this information is protected by the Federal Confidentiality of Alcohol and Drug Abuse Patient Records regulations: The Federal rules restrict any use of the information to criminally investigate or prosecute any alcohol or drug abuse patient.[facility] CenterIn the event this information is protected by the Federal Confidentiality of Alcohol and Drug Abuse Patient Records regulations: The Federal rules restrict any use of the information to criminally investigate or prosecute any alcohol or drug abuse patient.[facility] CenterIn the event this information is protected by the Federal Confidentiality of Alcohol and Drug Abuse Patient Records regulations: The Federal rules restrict any use of the information to criminally investigate or prosecute any alcohol or drug abuse patient.[facility] CenterIn the event this information is protected by the Federal Confidentiality of Alcohol and Drug Abuse Patient Records regulations: The Federal rules restrict any use of the information to criminally investigate or prosecute any alcohol or drug abuse patient.[facility] CenterIn the event this information is protected by the Federal Confidentiality of Alcohol and Drug Abuse Patient Records regulations: The Federal rules restrict any use of the information to criminally investigate or prosecute any alcohol or drug abuse patient.[facility] CenterIn the event this information is protected by the Federal Confidentiality of Alcohol and Drug Abuse Patient Records regulations: The Federal rules restrict any use of the information to criminally investigate or prosecute any alcohol or drug abuse patient.[facility] CenterIn the event this information is protected by the Federal Confidentiality of Alcohol and Drug Abuse Patient Records regulations: The Federal rules restrict any use of the information to criminally investigate or prosecute any alcohol or drug abuse patient.[facility] CenterIn the event this information is protected by the Federal Confidentiality of Alcohol and Drug Abuse Patient Records regulations: The Federal rules restrict any use of the information to criminally investigate or prosecute any alcohol or drug abuse patient.[facility] CenterIn the event this information is protected by the Federal Confidentiality of Alcohol and Drug Abuse Patient Records regulations: The Federal rules restrict any use of the information to criminally investigate or prosecute any alcohol or drug abuse patient.[facility] CenterIn the event this information is protected by the Federal Confidentiality of Alcohol and Drug Abuse Patient Records regulations: The Federal rules restrict any use of the information to criminally investigate or prosecute any alcohol or drug abuse patient.[facility] CenterIn the event this information is protected by the Federal Confidentiality of Alcohol and Drug Abuse Patient Records regulations: The Federal rules restrict any use of the information to criminally investigate or prosecute any alcohol or drug abuse patient.[facility] CenterIn the event this information is protected by the Federal Confidentiality of Alcohol and Drug Abuse Patient Records regulations: The Federal rules restrict any use of the information to criminally investigate or prosecute any alcohol or drug abuse patient.[facility] CenterIn the event this information is protected by the Federal Confidentiality of Alcohol and Drug Abuse Patient Records regulations: The Federal rules restrict any use of the information to criminally investigate or prosecute any alcohol or drug abuse patient.[facility] CenterIn the event this information is protected by the Federal Confidentiality of Alcohol and Drug Abuse Patient Records regulations: The Federal rules restrict any use of the information to criminally investigate or prosecute any alcohol or drug abuse patient.[facility] CenterIn the event this information is protected by the Federal Confidentiality of Alcohol and Drug Abuse Patient Records regulations: The Federal rules restrict any use of the information to criminally investigate or prosecute any alcohol or drug abuse patient.[facility] CenterIn the event this information is protected by the Federal Confidentiality of Alcohol and Drug Abuse Patient Records regulations: The Federal rules restrict any use of the information to criminally investigate or prosecute any alcohol or drug abuse patient.[facility] CenterIn the event this information is protected by the Federal Confidentiality of Alcohol and Drug Abuse Patient Records regulations: The Federal rules restrict any use of the information to criminally investigate or prosecute any alcohol or drug abuse patient.[facility] CenterIn the event this information is protected by the Federal Confidentiality of Alcohol and Drug Abuse Patient Records regulations: The Federal rules restrict any use of the information to criminally investigate or prosecute any alcohol or drug abuse patient.[facility] CenterIn the event this information is protected by the Federal Confidentiality of Alcohol and Drug Abuse Patient Records regulations: The Federal rules restrict any use of the information to criminally investigate or prosecute any alcohol or drug abuse patient.[facility] CenterIn the event this information is protected by the Federal Confidentiality of Alcohol and Drug Abuse Patient Records regulations: The Federal rules restrict any use of the information to criminally investigate or prosecute any alcohol or drug abuse patient.[facility] CenterIn the event this information is protected by the Federal Confidentiality of Alcohol and Drug Abuse Patient Records regulations: The Federal rules restrict any use of the information to criminally investigate or prosecute any alcohol or drug abuse patient.[facility] CenterIn the event this information is protected by the Federal Confidentiality of Alcohol and Drug Abuse Patient Records regulations: The Federal rules restrict any use of the information to criminally investigate or prosecute any alcohol or drug abuse patient.[facility] CenterIn the event this information is protected by the Federal Confidentiality of Alcohol and Drug Abuse Patient Records regulations: The Federal rules restrict any use of the information to criminally investigate or prosecute any alcohol or drug abuse patient.[facility] CenterIn the event this information is protected by the Federal Confidentiality of Alcohol and Drug Abuse Patient Records regulations: The Federal rules restrict any use of the information to criminally investigate or prosecute any alcohol or drug abuse patient.[facility] CenterIn the event this information is protected by the Federal Confidentiality of Alcohol and Drug Abuse Patient Records regulations: The Federal rules restrict any use of the information to criminally investigate or prosecute any alcohol or drug abuse patient.[facility] CenterIn the event this information is protected by the Federal Confidentiality of Alcohol and Drug Abuse Patient Records regulations: The Federal rules restrict any use of the information to criminally investigate or prosecute any alcohol or drug abuse patient.[facility] Goals (unrecognized section and content) Goals may be documented in a n alternate sectionGoals may be documented in an alternate section FOR RECORDS PERTAINING TO PATIENTS WHO ARE OR HAVE BEEN ENROLLED IN A CHEMICAL DEPENDENCY/SUBSTANCEABUSE PROGRAM, SOME INFORMATION MAY BE OMITTED. This clinical summary was aggregated from multiple sources. Caution should be exercised in using it in the provision of clinical care. This summary normalizes information from multiple sources, and as a consequence, information in this document may materially change the coding, format and clinical context of patient data. In addition, data may be omitted in some cases. CLINICAL DECISIONS SHOULD BE BASED ON THE PRIMARY CLINICAL RECORDS. [facility] [employer] [facility]. provides no warranty or guarantee of the accuracy or completeness of information in this document.
--- NOTE | 2024-12-29 07:11 | EKG12_ITS ---
Test Reason : HIGH RISK MED Blood Pressure : */* mmHG Vent. Rate : 66 BPM Atrial Rate : 66 BPM P-R Int : 154 ms QRS Dur : 88 ms QT Int : 394 ms P-R-T Axes : 22 -13 65 degrees QTcB Int : 413 ms Normal sinus rhythm Normal ECG Confirmed by Genaro Patterson ([id number]), offline editor HUGO HURTADO ([id number]) on 12/29/2024 10:43:13 AM Referred By: PHIL CHAPA Confirmed By: Genaro Patterson
== END | disposition home or self-care (01) ==
PROVIDERS: PCP Family Medicine
DX: Z79.899 Other long term (current) drug therapy (principal); R53.83 Other fatigue
CPT/HCPCS: 93005